=== PATIENT | male | born 1970 | race Caucasian/White ===

== ENCOUNTER 2019-12-28 15:19 | Outpatient (REF) | payer MEDICARE, MEDICAID, SELFPAY ==
[2019-12-28 16:18] LABS: MANUAL DIFF FLAG NO
[2019-12-28 16:19] LABS: Basophils Percent Auto 0.5 % (0-2); Eosinophils Absolute Auto 0.3 X10*3/uL (0.0-0.4); Eosinophils Percent Auto 3.1 % (0-4); Hematocrit 39.5 % (42-52); Imm Gran Abs Auto 0.01 X10*3/uL (0.00-0.03); Imm Gran Pct Auto 0.1 % (0.0-0.4); Lymphocytes Absolute Auto 3.2 X10*3/uL (1.2-4.9); Lymphocytes Percent Auto 38.9 % (20-40); Mean Corpuscular HGB Conc 32.9 g/dl (31.0-36.0); Mean Corpuscular Hemoglobin 30.4 pg (27.0-33.0); Mean Corpuscular Volume 92.3 fL (80-98); Mean Platelet Volume 9.6 fL (9.4-12.4); Monocytes Absolute Auto 0.8 X10*3/uL (0.1-1.2); Monocytes Percent Auto 9.2 % (2-11); Neutrophils Percent Auto 48.2 % (45-73); Platelet Count 207 X10*3/uL (160-400); Red Blood Count 4.28 X10*6/uL (4.60-5.80); Red Cell Distribution Width 12.1 % (11.0-16.0); White Blood Count 8.3 X10*3/uL (4.8-10.8)
[2019-12-28 16:47] LABS: Anion Gap 12 (12-20); Blood Urea Nitrogen 15 mg/dL (9-16); Calcium 9.1 mg/dL (8.4-10.2); Carbon Dioxide 30 mmol/L (22-29); Chloride 102 mmol/L (96-108); Cholesterol 138 mg/dL; Estimated Glomerular Filt Rate > 60; Glucose Fasting 92 mg/dL (60-99); HDL Cholesterol 38 mg/dL; LDL Cholesterol Calculated 80 mg/dl; Potassium 4.7 mmol/l (3.3-5.1); Sodium 139 mmol/L (135-145); Triglycerides 104 mg/dL
== END 2019-12-28 15:20 | disposition home or self-care (01) ==
LOC: HO.LAB 15:19
PROVIDERS: PCP Internal Medicine; Visit Provider Nurse Practitioner Family
DX: M54.5 Low back pain (principal); I10 Essential (primary) hypertension
CPT/HCPCS: 36415; 80048; 80061; 85025

== ENCOUNTER 2020-02-09 10:46 | Outpatient (REF) | payer MEDICARE, MEDICAID, SELFPAY | END 2020-02-09 10:47 | disposition home or self-care (01) | LOC: HO.HMGCLDS 10:46 | PROVIDERS: PCP Internal Medicine; Visit Provider Internal Medicine | DX: Z20.828 Contact with and (suspected) exposure to other viral communicable diseases (principal) | CPT/HCPCS: C9803; U0003 ==

== ENCOUNTER 2020-04-02 13:56 | Outpatient (REF) | payer MEDICARE, MEDICAID, SELFPAY | END 2020-04-02 13:57 | disposition home or self-care (01) | LOC: HO.HMGCLDS 13:56 | PROVIDERS: PCP Internal Medicine; Visit Provider Internal Medicine | DX: Z20.822 Contact with and (suspected) exposure to COVID-19 (principal) | CPT/HCPCS: 36415; C9803; U0003; U0005 ==

== ENCOUNTER 2020-06-17 13:07 | Emergency (ER) | payer MEDICARE, MEDICAID, SELFPAY ==
--- NOTE | ~2020-06-17 | CT_ITS ---
EXAMINATION: CT HEAD WITHOUT CONTRAST CLINICAL INFORMATION: Headache. COMPARISON: None. TECHNIQUE: Contiguous helical images of the brain were obtained without IV contrast. Multiplanar reconstructions were performed. DLP: 771 mGy-cm. FINDINGS: There are no pathologic extra-axial fluid collections. The lateral, third, fourth ventricles are nondilated and concordant with the appearance of the sulci. There is no evidence for acute intraparenchymal hemorrhage or infarct. There is neither mass nor mass effect. There is no shift of midline structures. The paranasal sinuses and mastoid air cells are clear. There are no osseous lesions. CT/CT head/brain wo con IMPRESSION: No evidence for acute intracranial injury. Automated exposure control (Care Dose) Adjustment of the mA and/or kv according to patient size (this includes techniques or standardized protocols for targeted exams where dose is matched to indication / reason for exam; i.e. extremities or head).
[2020-06-17 13:21] VITALS: BP 138/64; PULSE 77; RESP 16; TEMP 36.6; O2SAT 91; BMI 73.2
--- NOTE | 2020-06-17 16:03 | ED.HA ---
HPI - Headache General Chief Complaint: Headache Stated Complaint: headache Time Seen by Provider: 06/17/20 16:02 Source: patient Mode of arrival: ambulatory Limitations: no limitations History of Present Illness HPI Narrative: 50 yo male HTN, chronic pain, asthma, no AC therapy headache throbbing in nature gradual onset since 3/2 after his 2nd COVID vaccine, has seen Neurologist as well as eye doctor with normal exams and eye pressures, has not had imaging yet, patient concerned and family urged him to get it checked out MD elicited complaint: headache Pertinent past history: migraines and hypertension Onset (ago): month(s) (1) Onset description: gradually Location: diffuse Severity: severe Quality & Timing: throbbing Exacerbating factors: none Relieving factors: nothing Context: other (started after his 2nd covid vaccine) Associated symptoms: none Treatments prior to arrival: none Related Data Home Medications Medication Instructions Recorded Confirmed clonazepam 1 mg tablet 1 mg PO BEDTIME 12/01/19 03/11/20 umeclidinium 62.5 mcg-vilanterol INHALATION 03/11/20 03/11/20 25 mcg/actuation powdr for inhalation Previous Rx's Medication Instructions Recorded clonazepam 1 mg tablet 1 mg PO BID #60 tab 01/02/20 zolpidem 10 mg tablet 10 mg PO BEDTIME PRN #30 tab 01/02/20 albuterol sulfate 90 mcg/actuation 2 puff INHALATION QID #18 g 03/11/20 aerosol inhaler atorvastatin 20 mg tablet 20 mg PO DAILY #90 tab 03/11/20 citalopram 20 mg tablet 20 mg PO DAILY #90 tab 03/11/20 gabapentin 600 mg tablet 600 mg PO TID #180 tab 03/11/20 hydrochlorothiazide 12.5 mg tablet 12.5 mg PO DAILY #90 tab 03/11/20 lisinopril 10 mg tablet 10 mg PO DAILY #90 tab 03/11/20 trazodone 50 mg tablet 50 mg PO BEDTIME #90 tab 03/11/20 Allergies Allergy/AdvReac Type Severity Reaction Status Date / Time morphine Allergy Severe Anaphylaxis Verified 03/11/20 09:31 acetaminophen [From Tylenol] Allergy Unknown Gastrointestinal Verified 03/11/20 09:31 Upset Review of Systems Review of Systems: Constitutional : No Fever, No Chills, No Fatigue ENT/Mouth : No sore throat, No Rhinorrhea Eyes: No Eye Pain, No Swelling, No Redness Cardiovascular : No Chest Pain, No SOB, No Dyspnea on Exertion Respiratory : No Cough, No Sputum Gastrointestinal : No Nausea, No Vomiting, No Diarrhea, No abdominal Pain Genitourinary : No Dysuria, No Urinary Frequency, No Hematuria, Musculoskeletal : No joint pain, No Myalgias, No Joint Swelling Skin : No Skin Lesions, No rash Neuro : No Weakness, No Numbness, No Dizziness, positive Headache Psych : No Anxiety/Panic, No Depression Heme/Lymph: No Bruising, No Bleeding,No Lymphadenopathy Endocrine : No Polyuria, No Polydipsia All other systems reviewed and are negative [facility] Past Medical History Attestation statement: The following information was validated with the patient. Medical History Asthma Hypertension Lower back pain Peripheral neuropathy Surgical History History of back surgery Family History Family History Father No problems noted. Mother No problems noted. Social History Social History Alcohol intake: never Smoking Status: Current every day smoker Tobacco Type: Cigarette Cigarettes Per Day: 10 Use of substances other than those prescribed or required for medical reasons: No Advance Directives: No Advance Directives Information Provided: Yes Physical Exam Vital Signs: Vital Signs: Last Vital Signs Temp 98 F 06/17/20 13:21 Pulse 58 06/17/20 18:26 Resp 18 06/17/20 18:26 BP 117/63 06/17/20 18:26 Pulse Ox 95 06/17/20 18:26 Body Mass Index 73.2 Appearance: Alert. Oriented X3. No acute distress. Eyes: Pupils equal, round and reactive to light. ENT: Pharynx normal. TMs normal Neck: Normal inspection. Neck supple. CVS: Normal heart rate and rhythm. Pulses normal. Respiratory: No respiratory distress. Breath sounds normal. Abdomen: Soft and nontender. Skin: Skin warm and dry. Normal skin color. Normal skin turgor. Extremities: No lower extremity edema. No calf ttp Neuro: Oriented X 3. No motor deficit. No sensory deficit. Course Course Course Narrative: patient eloped prior to results MDM - Headache MDM Narrative Medical decision making narrative: 50 yo male with no AC therapy here with 1+ month of throbbing headache no neuro deficits, has seen multiple specialists but has not had imaging, at this time will obtain CT head to r/o mass, doubt stroke doubt SAH or BEHAVIORAL INTERVENTIONIST infection given duration as well as lack of infectious symptoms Differential Diagnosis Differential diagnosis: Likely tension headache and headache; Unlikely subarachnoid hemorrhage, meningitis and sinusitis Discharge Plan Discharge Clinical Impression: Headache Patient Disposition: Elopement Prescriptions: No Action zolpidem [Ambien] 10 mg tablet 10 mg PO BEDTIME PRN (Reason: sleep) Qty: 30 RF: 5 clonazepam [Klonopin] 1 mg tablet 1 mg PO BID Qty: 60 RF: 5 albuterol sulfate [ProAir HFA] 90 mcg/actuation HFA aerosol inhaler 2 puff inhalation QID Qty: 18 RF: 8 atorvastatin 20 mg tablet 20 mg PO DAILY Qty: 90 RF: 8 citalopram 20 mg tablet 20 mg PO DAILY Qty: 90 RF: 8 gabapentin 600 mg tablet 600 mg PO TID Qty: 180 RF: 8 hydrochlorothiazide 12.5 mg tablet 12.5 mg PO DAILY Qty: 90 RF: 8 lisinopril 10 mg tablet 10 mg PO DAILY Qty: 90 RF: 8 trazodone 50 mg tablet 50 mg PO BEDTIME Qty: 90 RF: 8 clonazepam [Klonopin] 1 mg tablet 1 mg PO BEDTIME RF: 0 Anoro Ellipta 62.5-25 mcg/actuation blister with device inhalation RF: 0
[2020-06-17 16:16] VITALS: BP 112/63; PULSE 65; RESP 16
--- NOTE | 2020-06-17 16:29 | PC.NURSE ---
Patient awake and alert. skin pwd. resp even and non labored. speaking in full, clear sentences. reports frontal headache traveling to backside of head starting after recieving 2nd covid vaccine on May 01. states headache is constant but does get worse at times. denies hx of headaches. vomited x 1 this morning for the first time since the headache started. neuros intact, PERRLA. awaiting initial physician carmina
[2020-06-17 18:26] VITALS: BP 117/63; PULSE 58; RESP 18; O2SAT 95
--- NOTE | 2020-06-17 18:55 | PC.NURSE ---
06/17/201839 Patient states he wants to leave at this time, states he cant wait for his CT results. Patient alert and oriented, speaking in full, clear sentences, ambulating with steady gait.
== END 2020-06-17 18:40 | disposition left against medical advice (07) ==
PROVIDERS: Emergency Provider Emergency Medicine; PCP Internal Medicine
DX: R51.9 Headache, unspecified (principal); I10 Essential (primary) hypertension; J45.909 Unspecified asthma, uncomplicated; F17.210 Nicotine dependence, cigarettes, uncomplicated
CPT/HCPCS: 70450; 99284

== ENCOUNTER → 2020-08-15 10:53 | Outpatient (BNVA) | payer MEDICARE, MEDICAID, SELFPAY | PROVIDERS: PCP Internal Medicine; Referring Provider Internal Medicine; Visit Provider Nurse Practitioner Family | DX: K21.9 Gastro-esophageal reflux disease without esophagitis (principal); K59.00 Constipation, unspecified; R14.0 Abdominal distension (gaseous) | CPT/HCPCS: 99202 ==

== ENCOUNTER 2020-10-01 07:52 | Outpatient (REF) | payer MEDICARE, MEDICAID, SELFPAY ==
[2020-10-01 11:19] LABS: MANUAL DIFF FLAG NO
[2020-10-01 11:29] LABS: Basophils Percent Auto 0.3 % (0-2); Eosinophils Absolute Auto 0.3 X10*3/uL (0.0-0.4); Eosinophils Percent Auto 2.1 % (0-4); Hematocrit 44.1 % (42-52); Hemoglobin 14.3 g/dl (14.0-18.0); Imm Gran Abs Auto 0.04 X10*3/uL (0.00-0.03); Imm Gran Pct Auto 0.3 % (0.0-0.4); Lymphocytes Absolute Auto 2.9 X10*3/uL (1.2-4.9); Mean Corpuscular HGB Conc 32.4 g/dl (31.0-36.0); Mean Corpuscular Hemoglobin 29.9 pg (27.0-33.0); Mean Corpuscular Volume 92.3 fL (80-98); Mean Platelet Volume 9.5 fL (9.4-12.4); Monocytes Absolute Auto 0.9 X10*3/uL (0.1-1.2); Monocytes Percent Auto 7.2 % (2-11); Neutrophils Percent Auto 66.1 % (45-73); Platelet Count 224 X10*3/uL (160-400); Red Blood Count 4.78 X10*6/uL (4.60-5.80); Red Cell Distribution Width 12.1 % (11.0-16.0); White Blood Count 12.2 X10*3/uL (4.8-10.8)
[2020-10-01 11:55] LABS: Alanine Aminotransferase 27 U/L (0-40); Albumin Level 4.5 g/dL (3.5-5.0); Alkaline Phosphatase 85 U/L (39-117); Anion Gap 12 (12-20); Aspartate Amino Transferase 29 U/L (5-37); Bilirubin Total 0.5 mg/dL (0.0-1.0); Blood Urea Nitrogen 11 mg/dL (9-16); Calcium 9.9 mg/dL (8.4-10.2); Carbon Dioxide 31 mmol/L (22-29); Chloride 101 mmol/L (96-108); Cholesterol 139 mg/dL; Estimated Glomerular Filt Rate > 60; Glucose Fasting 125 mg/dL (60-99); HDL Cholesterol 40 mg/dL; LDL Cholesterol Calculated 87 mg/dl; Potassium 4.1 mmol/L (3.3-5.1); Sodium 140 mmol/L (135-145); Total Protein 7.5 g/dL (6.5-8.0); Triglycerides 64 mg/dL
[2020-10-01 12:04] LABS: Thyroid Stimulating Hormone 1.57 uIU/mL (0.32-4.0)
[2020-10-07 08:57] LABS: Testosterone, Free 50.1 pg/mL (35.0-155.0); Testosterone, Total 421 ng/dL (250-1100)
== END 2020-10-01 07:53 | disposition home or self-care (01) ==
LOC: HO.HMGCLDS 07:52
PROVIDERS: PCP Internal Medicine; Visit Provider Internal Medicine
DX: Z00.00 Encounter for general adult medical examination without abnormal findings (principal); E11.9 Type 2 diabetes mellitus without complications; E03.9 Hypothyroidism, unspecified; G62.9 Polyneuropathy, unspecified
CPT/HCPCS: 36415; 80053; 80061; 84402; 84403; 84443; 85025

== ENCOUNTER → 2020-10-11 07:56 | Outpatient (BNVA) | payer MEDICARE, MEDICAID, SELFPAY | PROVIDERS: PCP Internal Medicine; Visit Provider Nurse Practitioner Family | DX: K59.00 Constipation, unspecified (principal); R14.0 Abdominal distension (gaseous); K59.03 Drug induced constipation; K21.9 Gastro-esophageal reflux disease without esophagitis; E78.5 Hyperlipidemia, unspecified; I10 Essential (primary) hypertension; E66.9 Obesity, unspecified; G62.9 Polyneuropathy, unspecified; F17.210 Nicotine dependence, cigarettes, uncomplicated; Z68.34 Body mass index [BMI] 34.0-34.9, adult; Z88.6 Allergy status to analgesic agent; Z88.5 Allergy status to narcotic agent | CPT/HCPCS: 99212 ==

== ENCOUNTER → 2020-11-18 08:22 | Outpatient (BNVA) | payer MEDICARE, MEDICAID, SELFPAY | PROVIDERS: PCP Internal Medicine; Visit Provider Nurse Practitioner Family | CPT/HCPCS: Q3014 ==

== ENCOUNTER → 2020-12-16 08:13 | Outpatient (BNVA) | payer MEDICARE, MEDICAID, SELFPAY | PROVIDERS: PCP Internal Medicine; Visit Provider Nurse Practitioner Family | DX: Z13.89 Encounter for screening for other disorder (principal) | CPT/HCPCS: Q3014 ==

== ENCOUNTER 2021-02-19 08:56 | Day surgery (SDC) | payer MEDICARE, MEDICAID, SELFPAY ==
[2021-02-12 15:09] VITALS: BMI 32.5
--- NOTE | 2021-02-17 14:09 | HO.ANESPROP2 ---
Documented by User: Cassidy Hunter NP 02/17/21 14:10 HPI - Anesthesia Eval Consult details Narrative: 50yo M for Upper Endoscopy and Colonoscopy suboxone daily PMFSH Active Problems Active Problems: All Active Problems (Updated 02/12/21 @ 15:11 by Lydia Thomas, RN) Hypertension (Acute) Asthma (Acute) Substance abuse in family (Acute) Depression (Acute) Hyperglycemia (Acute) Current smoker (Acute) Prostate cancer screening (Acute) Encounter for screening for malignant neoplasm of colon (Acute) Medicare annual wellness visit, subsequent (Acute) Obesity (Acute) Hyperlipidemia (Acute) Peripheral neuropathy (Acute) Hypertension (Acute) Lower back pain (Acute) Past Medical History Medical History Asthma Hx of opioid abuse Hyperlipidemia Hypertension Lower back pain Obesity Peripheral neuropathy Family History Family History Father No problems noted. Mother No problems noted. Surgical History Surgical History History of back surgery History of esophagogastroduodenoscopy (EGD) Social History Social History Housing: Apartment Alcohol intake: never Patient Tobacco Use Status: Current everyday Tobacco user Tobacco use type: Cigarette Cigarettes Per Day: 15 Are you DNR?: No Advance Directives: No Advance Directives Information Provided: Yes Advance Directives on File: No Recently lost weight without trying: No service: No Current occupational status: disabled Meds Allergies Allergy/AdvReac Type Severity Reaction Status Date / Time morphine Allergy Severe Anaphylaxis Verified 02/12/21 15:04 acetaminophen [From Tylenol] Allergy Unknown Gastrointestinal Verified 02/12/21 15:04 Upset Home Medications Medication Instructions Recorded Confirmed Last Taken Type ibuprofen 600 mg tablet 600 mg PO TID PRN 07/05/20 02/12/21 Unknown History buprenorphine 8 mg-naloxone 2 mg 2 tab SUBLINGUAL DAILY 08/15/20 02/12/21 Unknown History sublingual tablet naproxen 500 mg tablet 500 mg PO BID PRN 11/18/20 02/12/21 Unknown History albuterol sulfate 90 mcg/actuation 2 puff INHALATION QID PRN 02/12/21 02/12/21 Unknown History aerosol inhaler (ProAir HFA) clonazepam 1 mg tablet (Klonopin) 1 mg PO BID PRN 02/12/21 02/12/21 Unknown History Exam Exam Date and Time: February 17, 2021 1409 Height,Weight and Vital Signs: Height 6 ft Weight 108.862 kg Pertinent Lab Results Pertinent Lab Results: Laboratory Tests 10/01/20 10/01/20 07:57 07:57 WBC 12.2 H Hgb 14.3 Hct 44.1 Plt Count 224 Sodium 140 Potassium 4.1 Chloride 101 Carbon Dioxide 31 H BUN 11 Creatinine 0.81 Assessment and Plan Assessment Anesthesia Assessment: Chart Reviewed Documented by User: Sherry Alvarado MD 02/19/21 10:46 PMFSH Past Medical History Medical History Asthma Hx of opioid abuse Hyperlipidemia Hypertension Lower back pain Obesity Peripheral neuropathy Family History Family History Father No problems noted. Mother No problems noted. Surgical History Surgical History History of back surgery History of esophagogastroduodenoscopy (EGD) History of Problems with Anesthesia: No Social History Social History Housing: Apartment Alcohol intake: never Patient Tobacco Use Status: Current everyday Tobacco user Tobacco use type: Cigarette Cigarettes Per Day: 15 Are you DNR?: No Advance Directives: No Advance Directives Information Provided: Yes Advance Directives on File: No Recently lost weight without trying: No service: No Current occupational status: disabled Meds Allergies Allergy/AdvReac Type Severity Reaction Status Date / Time morphine Allergy Severe Anaphylaxis Verified 02/12/21 15:04 acetaminophen [From Tylenol] Allergy Unknown Gastrointestinal Verified 02/12/21 15:04 Upset Home Medications Medication Instructions Recorded Confirmed Last Taken Type ibuprofen 600 mg tablet 600 mg PO TID PRN 07/05/20 02/12/21 Unknown History buprenorphine 8 mg-naloxone 2 mg 2 tab SUBLINGUAL DAILY 08/15/20 02/12/21 Unknown History sublingual tablet naproxen 500 mg tablet 500 mg PO BID PRN 11/18/20 02/12/21 Unknown History albuterol sulfate 90 mcg/actuation 2 puff INHALATION QID PRN 02/12/21 02/12/21 Unknown History aerosol inhaler (ProAir HFA) clonazepam 1 mg tablet (Klonopin) 1 mg PO BID PRN 02/12/21 02/12/21 Unknown History Exam Airway Mallampati Class: III TM Dist: >3cm Neck ROM: Full Loose/Missing/Broken Teeth: No Heart: RRR Lungs: CTA Assessment and Plan Final Anesthetic Review History of Problems with Anesthesia: No NPO: Yes ASA Class: II Final Preanesthetic Review: Meds/Allgs Chart Reviewed, Consent Obtained/Reviewed and Anes Risks/Benef Reviewed Patient Risk: Low Procedure Risk: Intermediate Anesthetic Plan Anesthetic Plan: MAC: Disposition: Standard PACU
[2021-02-19 09:51] VITALS: BP 106/66; PULSE 67; RESP 16; TEMP 37; O2SAT 94
--- NOTE | 2021-02-19 10:09 | MHC.SHP ---
Pre-Procedural Eval Section A Date of Service: 02/19/21 Section B Chief Complaint: constipation Details of Present Illness: also has hx of GERD Relevant Family History (Specify if Yes): No Relevant Social History: Tobacco Use Present Medications: see Short Stay Collaborative assessment Medical History: Significant History (Asthma Hx of opioid abuse Hyperlipidemia Hypertension Lower back pain Obesity Peripheral neuropathy) History of Previous Operations: Relevant previous surgery/procedure and date(s) (History of back surgery History of esophagogastroduodenoscopy (EGD)) Allergies: Allergies Allergy/AdvReac Type Severity Reaction Status Date / Time morphine Allergy Severe Anaphylaxis Verified 02/12/21 15:04 acetaminophen [From Tylenol] Allergy Unknown Gastrointestinal Verified 02/12/21 15:04 Upset Review of Systems Sugical H&P ROS: Negative: Constitution, Cardiovascular, Respiratory, Neurological, Psychiatric, Hem-Onc, Allergic/Immunologic, Gastrointestinal, Genitourinary, Musculoskeletal, Integumentary, Endocrine and Eyes/Ears/Nose/Throat Exam Surgical H&P Exam: Normal: HEENT, Normal: Heart, Normal: Lungs, Normal: Extremities, Normal: Abdomen, Normal: Skin and Normal: Neurological Plan Diagnosis/Plan: Unchanged I have reviewed the history and physical and performed a pertinent physical examination on my patient. No changes have occurred unless specified. EGD fro evaluation of GERD and r/o barretts, colonsocopy due to worsening constipation
[2021-02-19] MEDS: Lactated Ringers 1,000 ML 100 ML IVCONT (10:10)
--- NOTE | 2021-02-19 10:11 | P.BOP_ITS ---
Brief Operative Note Date of Service: 02/19/21 Pre-op diagnosis: GERd, constipation Post-op diagnosis: same Procedure: see op note Surgeon: Norma Ryan MD Anesthesia: MAC Was an Coating Inspector used for this Procedure?: No Estimated blood loss (mL): 0 Condition: stable Disposition: PACU
--- NOTE | 2021-02-19 10:11 | W.PM.OPN ---
Operative Note Operative Note Date of Service: 02/19/21 Narrative: Operative Information Procedure Description: EGD, Colonoscopy FLEXIBLE TRANSORAL UPPER GASTROINTESTINAL ENDOSCOPY AND COLONOSCOPY PROCEDURE NOTE UPPER ENDOSCOPY Consent: Indications for the procedure and potential complications of bleeding, perforation, reaction to medications and missed diagnosis were discussed with the patient and informed consent was obtained. Instrument: Olympus GIF H 190 J mid size upper endoscope Monitoring: Vital signs and clinical assessment, continuous EKG monitoring, Pulse oximetry, Carbon Dioxide monitoring and blood pressure monitoring were done throughout the procedure. Procedure: The patient was placed in the left lateral decubitis position and pre-procedure medications were administered and a bite block was placed. The endoscope was inserted into the mouth and advanced under direct vision to the third part of duodenum. A careful inspection was made as the upper endoscope was withdrawn including a retroflexed examination of the proximal stomach; Findings and interventions are described below. Findings: Larynx:normal Esophagus: GE junction at 42 cm, diaphragm hiatus at 42 cm, mild esophagitis at GEJ bx taken from there and random esophagus Stomach: Patch erythema kriss antrum with small erosion noted. Biopsies were obtained. Grade 2 flap valve on retroflexed examination of the cardia. Some billious fluid noted in stomach. Duodenum: Normal bulb and descending duodenum, bx taken Intervention: Biopsies as noted above COLONOSCOPY Instrument: Olympus variable stiffness adult scope 190L Colonoscopy Monitoring: Vital signs and clinical assessment, continuous EKG monitoring, Pulse oximetry, Carbon Dioxide monitoring and blood pressure monitoring were done throughout the procedure. Colon withdrawal time was 21 minutes. Procedure: The patient was placed in the left lateral decubitis position and pre-procedure medications were administered. After a digital rectal examination of the ano-rectum, the video colonoscope was inserted into the rectum and advanced through the colon to the cecum/TI. The colonoscope was slowly withdrawn in a retrograde panoramic fashion and the colon mucosa was carefully examined including a retroflexed view of the rectum. Findings and interventions are described below. Procedure Difficulty: moderate Findings: Terminal Ileum-normal Cecum:normal Ascending Colon: normal Transverse Colon -normal Descending Colon:normal Sigmoid Colon: normal Rectum: Retroflexion with moderate sized internal hemorrhoids, grade I Anorectum - normal Colon preparation: [place] Bowel Preparation Scale Right colon; borderline 2 with extensive washing Transverse colon: 2 Left colon; 1 (0 = Unprepared colon segment with mucosa not seen due to solid stool that cannot be cleared. 1 = Portion of mucosa of the colon segment seen, but other areas of the colon segment not well seen due to staining, residual stool and/or opaque liquid. 2 = Minor amount of residual staining, small fragments of stool and/or opaque liquid, but mucosa of colon segment seen well. 3 = Entire mucosa of colon segment seen well with no residual staining, small fragments of stool or opaque liquid) Impression and Post Procedure Diagnosis: Endoscopy Findings: gastritis erosion esophagitis Colonoscopy Findings: internal hemorrhoids Plan: Await Pathology results Repeat Colonoscopy in 1-2 years due to fair prep or earlier if clinically indicated, next time can try 2 d of clears High fiber diet leaflet avoid straining at stool, epsom salts and sitz bath, anusol supps or cream if h pylori pos treat, check nsaid hx Above findings were reviewed with the patient and relevant handouts were provided if indicated.
[2021-02-19 11:13] VITALS: BP 103/42; PULSE 66; RESP 16; TEMP 36.1; O2SAT 95
[2021-02-19 11:30] VITALS: BP 102/57; PULSE 70; RESP 16; TEMP 36.1; O2SAT 95
== END 2021-02-19 12:27 | disposition home or self-care (01) ==
PROVIDERS: PCP Internal Medicine; Visit Provider Internal Medicine Gastroenterology
PROC: (CPT 43239; principal; 2021-02-19 10:10)
DX: Z12.11 Encounter for screening for malignant neoplasm of colon (principal); K64.0 First degree hemorrhoids; K59.04 Chronic idiopathic constipation; K21.9 Gastro-esophageal reflux disease without esophagitis; K29.50 Unspecified chronic gastritis without bleeding; K25.9 Gastric ulcer, unspecified as acute or chronic, without hemorrhage or perforation; K20.80 Other esophagitis without bleeding; K44.9 Diaphragmatic hernia without obstruction or gangrene; I10 Essential (primary) hypertension; G62.9 Polyneuropathy, unspecified; G47.33 Obstructive sleep apnea (adult) (pediatric); J45.909 Unspecified asthma, uncomplicated; Z79.899 Other long term (current) drug therapy; Z88.8 Allergy status to other drugs, medicaments and biological substances
CPT/HCPCS: 43239; G0121; 88305; 88342

== ENCOUNTER 2021-03-31 13:30 | Outpatient (REF) | payer MEDICARE, MEDICAID, SELFPAY ==
[2021-03-31 16:31] LABS: MANUAL DIFF FLAG NO
[2021-03-31 16:47] LABS: Basophils Percent Auto 0.3 % (0-2); Eosinophils Absolute Auto 0.2 X10*3/uL (0.0-0.4); Eosinophils Percent Auto 2.2 % (0-4); Hematocrit 39.8 % (42.0-52.0); Hemoglobin 13.3 g/dl (14.0-18.0); Imm Gran Abs Auto 0.03 X10*3/uL (0.00-0.03); Imm Gran Pct Auto 0.3 % (0.0-0.4); Lymphocytes Percent Auto 32.4 % (20-40); Mean Corpuscular HGB Conc 33.4 g/dl (31.0-36.0); Mean Corpuscular Hemoglobin 30.9 pg (27.0-33.0); Mean Corpuscular Volume 92.3 fL (80.0-98.0); Mean Platelet Volume 9.7 fL (9.4-12.4); Monocytes Absolute Auto 0.8 X10*3/uL (0.1-1.2); Monocytes Percent Auto 8.5 % (2-11); Neutrophils Absolute Auto 5.2 x10*3/uL (2.0-8.3); Neutrophils Percent Auto 56.3 % (45-73); Platelet Count 229 X10*3/uL (160-400); Red Blood Count 4.31 X10*6/uL (4.60-5.80); Red Cell Distribution Width 12.3 % (11.0-16.0); White Blood Count 9.2 X10*3/uL (4.8-10.8)
[2021-03-31 16:55] LABS: Alanine Aminotransferase 26 U/L (0-40); Albumin Level 4.2 g/dL (3.5-5.0); Alkaline Phosphatase 81 U/L (39-117); Aspartate Amino Transferase 25 U/L (5-37); Bilirubin Direct 0.2 mg/dL (0.0-0.5); Bilirubin Total 0.3 mg/dL (0.0-1.0); Blood Urea Nitrogen 16 mg/dL (9-16); Estimated Glomerular Filt Rate > 60; Total Protein 7.2 g/dL (6.5-8.0)
== END 2021-03-31 13:31 | disposition home or self-care (01) ==
LOC: HO.HMGCLDS 13:30
PROVIDERS: PCP Internal Medicine; Visit Provider Podiatrist
DX: B35.1 Tinea unguium (principal)
CPT/HCPCS: 36415; 80076; 82565; 84520; 85025

== ENCOUNTER 2021-04-04 | Outpatient (REF) | payer MEDICARE, MEDICAID, SELFPAY ==
[2021-04-06 09:28] LABS: H Pylori Breath Test Negative (Negative)
== END 2021-04-04 00:01 | disposition home or self-care (01) ==
LOC: HO.LNP
PROVIDERS: Visit Provider Internal Medicine Gastroenterology
DX: Z11.0 Encounter for screening for intestinal infectious diseases (principal)
CPT/HCPCS: 36415; 83013; 99211

== ENCOUNTER → 2021-04-04 10:14 | Outpatient (BNVA) | payer MEDICARE, MEDICAID, SELFPAY | PROVIDERS: PCP Internal Medicine; Referring Provider Internal Medicine; Visit Provider Internal Medicine Gastroenterology | DX: Z13.89 Encounter for screening for other disorder (principal) | CPT/HCPCS: 36415 ==

== ENCOUNTER → 2021-04-29 10:14 | Outpatient (BNVA) | payer MEDICARE, MEDICAID, SELFPAY | PROVIDERS: PCP Internal Medicine; Referring Provider Internal Medicine; Visit Provider Nurse Practitioner Family | DX: K58.1 Irritable bowel syndrome with constipation (principal); K59.04 Chronic idiopathic constipation; K21.00 Gastro-esophageal reflux disease with esophagitis, without bleeding; Z79.899 Other long term (current) drug therapy | CPT/HCPCS: 99212 ==

== ENCOUNTER → 2021-05-27 10:56 | Outpatient (BNVA) | payer MEDICARE, MEDICAID, SELFPAY | PROVIDERS: PCP Internal Medicine | DX: E29.1 Testicular hypofunction (principal) | CPT/HCPCS: 99202 ==

== ENCOUNTER 2021-06-23 07:02 | Outpatient (REF) | payer MEDICARE, MEDICAID, SELFPAY ==
[2021-06-23 11:38] LABS: MANUAL DIFF FLAG NO
[2021-06-23 11:59] LABS: Estimated Average Glucose 108 mg/dL; Hemoglobin A1c % 5.4 %
[2021-06-23 12:07] LABS: Alanine Aminotransferase 27 U/L (0-40); Albumin Level 4.3 g/dL (3.5-5.0); Alkaline Phosphatase 74 U/L (39-117); Aspartate Amino Transferase 28 U/L (5-37); Bilirubin Direct 0.2 mg/dL (0.0-0.5); Bilirubin Total 0.4 mg/dL (0.0-1.0); Blood Urea Nitrogen 11 mg/dL (9-16); Estimated Glomerular Filt Rate > 60; Total Protein 7.1 g/dL (6.5-8.0)
[2021-06-23 12:12] LABS: Basophils Percent Auto 0.6 % (0-2); Eosinophils Absolute Auto 0.2 X10*3/uL (0.0-0.4); Eosinophils Percent Auto 2.5 % (0-4); Hematocrit 41.8 % (42.0-52.0); Imm Gran Abs Auto 0.02 X10*3/uL (0.00-0.03); Imm Gran Pct Auto 0.3 % (0.0-0.4); Lymphocytes Absolute Auto 2.3 X10*3/uL (1.2-4.9); Lymphocytes Percent Auto 31.7 % (20-40); Mean Corpuscular HGB Conc 33.5 g/dl (31.0-36.0); Mean Corpuscular Hemoglobin 30.6 pg (27.0-33.0); Mean Corpuscular Volume 91.5 fL (80.0-98.0); Mean Platelet Volume 9.5 fL (9.4-12.4); Monocytes Absolute Auto 0.7 X10*3/uL (0.1-1.2); Monocytes Percent Auto 9.5 % (2-11); Neutrophils Percent Auto 55.4 % (45-73); Platelet Count 239 X10*3/uL (160-400); Red Blood Count 4.57 X10*6/uL (4.60-5.80); Red Cell Distribution Width 12.4 % (11.0-16.0); White Blood Count 7.1 X10*3/uL (4.8-10.8)
[2021-06-23 12:21] LABS: Alanine Aminotransferase 24 U/L (0-40); Albumin Level 4.4 g/dL (3.5-5.0); Alkaline Phosphatase 73 U/L (39-117); Anion Gap 11 (12-20); Aspartate Amino Transferase 28 U/L (5-37); Bilirubin Total 0.6 mg/dL (0.0-1.0); Blood Urea Nitrogen 12 mg/dL (9-16); Calcium 9.9 mg/dL (8.4-10.2); Carbon Dioxide 32 mmol/L (22-29); Chloride 103 mmol/L (96-108); Cholesterol 132 mg/dL; Estimated Glomerular Filt Rate > 60; Glucose Fasting 108 mg/dL (60-99); HDL Cholesterol 40 mg/dL; LDL Cholesterol Calculated 80 mg/dl; Potassium 4.5 mmol/L (3.3-5.1); Sodium 141 mmol/L (135-145); Total Protein 7.1 g/dL (6.5-8.0); Triglycerides 63 mg/dL
[2021-06-23 12:24] LABS: Prostate Specific Antigen Scr 0.22 ng/mL (<0.05-4.0); Thyroid Stimulating Hormone 0.81 uIU/mL (0.32-4.0)
[2021-06-25 01:31] LABS: Sex Hormone Binding Globulin 102 nmol/L (10-50)
[2021-06-25 12:07] LABS: Follicle Stimulating Hormone 7.7 mIU/mL (1.6-8.0); Lutenizing Hormone 2.5 mIU/mL (1.5-9.3)
[2021-06-28 18:02] LABS: Testosterone, Free 28.4 pg/mL (35.0-155.0); Testosterone, Total 417 ng/dL (250-1100)
== END 2021-06-23 07:03 | disposition home or self-care (01) ==
LOC: HO.HMGCLDS 07:02
PROVIDERS: Absent Provider Urology; PCP Internal Medicine; Referring Provider Nurse Practitioner Family; Visit Provider Podiatrist
DX: Z00.00 Encounter for general adult medical examination without abnormal findings (principal); E29.1 Testicular hypofunction; R73.9 Hyperglycemia, unspecified; B35.1 Tinea unguium; Z12.5 Encounter for screening for malignant neoplasm of prostate; Z13.0 Encounter for screening for diseases of the blood and blood-forming organs and certain disorders involving the immune mechanism
CPT/HCPCS: 36415; 80053; 80061; 80076; 82248; 82565; 83001; 83002; 83036; 84153; 84270; 84402; 84403; 84443; 84520; 85025

== ENCOUNTER → 2021-06-27 09:19 | Outpatient (BNVA) | payer MEDICARE, MEDICAID, SELFPAY | PROVIDERS: PCP Internal Medicine; Visit Provider Urology | DX: E29.1 Testicular hypofunction (principal); R39.11 Hesitancy of micturition | CPT/HCPCS: Q3014 ==

== ENCOUNTER → 2021-10-31 09:01 | Outpatient (BNVA) | payer MEDICARE, MEDICAID, SELFPAY | PROVIDERS: PCP Internal Medicine; Visit Provider Nurse Practitioner Family | DX: K59.04 Chronic idiopathic constipation (principal); K21.00 Gastro-esophageal reflux disease with esophagitis, without bleeding | CPT/HCPCS: 99212 ==

== ENCOUNTER → 2022-02-18 11:53 | Outpatient (BNVA) | payer MEDICARE, MEDICAID, SELFPAY | PROVIDERS: PCP Internal Medicine; Visit Provider Nurse Practitioner Family | DX: K21.00 Gastro-esophageal reflux disease with esophagitis, without bleeding (principal); K59.04 Chronic idiopathic constipation; Z79.899 Other long term (current) drug therapy | CPT/HCPCS: 99212 ==

== ENCOUNTER 2022-03-04 15:01 | Outpatient (REF) | payer MEDICARE, MEDICAID, SELFPAY ==
[2022-03-04 17:25] LABS: Alanine Aminotransferase 30 U/L (0-40); Alkaline Phosphatase 70 U/L (39-117); Anion Gap 9 (12-20); Aspartate Amino Transferase 29 U/L (5-37); Bilirubin Total 0.5 mg/dL (0.0-1.0); Blood Urea Nitrogen 18 mg/dL (9-16); Calcium 9.2 mg/dL (8.4-10.2); Carbon Dioxide 31 mmol/L (22-29); Chloride 100 mmol/L (96-108); Cholesterol 161 mg/dL; Estimated Glomerular Filt Rate > 60; Glucose Random 89 mg/dL (60-115); HDL Cholesterol 49 mg/dL; LDL Cholesterol Calculated 98 mg/dl; Lipase 14 U/L (8-78); Potassium 4.2 mmol/L (3.3-5.1); Sodium 136 mmol/L (135-145); Total Protein 6.6 g/dL (6.5-8.0); Triglycerides 72 mg/dL
[2022-03-04 17:42] LABS: TSH reflex Free T4 0.91 uIU/mL (0.32-4.0)
== END 2022-03-04 15:02 | disposition home or self-care (01) ==
LOC: HO.LAB 15:01
PROVIDERS: PCP Internal Medicine; Visit Provider Nurse Practitioner Family
DX: R10.9 Unspecified abdominal pain (principal); K21.00 Gastro-esophageal reflux disease with esophagitis, without bleeding; K59.00 Constipation, unspecified; E78.5 Hyperlipidemia, unspecified
CPT/HCPCS: 36415; 80053; 80061; 83690; 84443; 99212

== ENCOUNTER 2022-03-12 | Outpatient (REF) | payer MEDICARE, MEDICAID, SELFPAY | END 2022-03-12 00:01 | LOC: HO.LAB | PROVIDERS: PCP Internal Medicine; Visit Provider Nurse Practitioner Family | DX: R10.9 Unspecified abdominal pain (principal); K21.9 Gastro-esophageal reflux disease without esophagitis | CPT/HCPCS: 87338 ==

== ENCOUNTER → 2022-03-18 11:51 | Outpatient (BNVA) | payer MEDICARE, MEDICAID, SELFPAY | PROVIDERS: PCP Internal Medicine; Visit Provider Nurse Practitioner Family | DX: K21.00 Gastro-esophageal reflux disease with esophagitis, without bleeding (principal); K59.04 Chronic idiopathic constipation; F17.210 Nicotine dependence, cigarettes, uncomplicated | CPT/HCPCS: 99212 ==

== ENCOUNTER 2022-03-25 13:22 | Outpatient (REF) | payer MEDICARE, MEDICAID, SELFPAY ==
--- NOTE | ~2022-03-25 | CT_ITS ---
EXAMINATION: CT ABDOMEN AND PELVIS WITH CONTRAST CLINICAL INFORMATION: Abdominal pain COMPARISON: None TECHNIQUE: Multidetector volumetric images were obtained from the superior aspect of the liver through the pubic symphysis following administration 85 mL of Omnipaque 350 intravenous contrast. Sagittal and coronal reformatted images were obtained on the technologist's workstation. Oral contrast: No This CT examination was performed using dose optimization techniques as appropriate, variously including the following: *Automated exposure control *Adjustment of mA and/or kV according to patient size (this includes techniques or standardized protocols for targeted exams where dose is matched to indication/reason for exam; i.e. extremities or head) *Use of iterative reconstruction technique DLP: 353 mGy-cm FINDINGS: LUNG BASES: The visualized lung bases are unremarkable. LIVER, GALLBLADDER, AND BILIARY TREE: The liver is normal in size, shape, and attenuation. No focal hepatic lesion or biliary ductal dilatation is present. The gallbladder is unremarkable with no evidence of radiopaque gallstones, gallbladder wall thickening, or obvious pericholecystic inflammatory changes. PANCREAS: Unremarkable. SPLEEN: Unremarkable. ADRENAL GLANDS: Unremarkable. KIDNEYS AND URETERS: The kidneys are normal in size, shape, and attenuation. No hydronephrosis, hydroureter, or calculi seen. Mild symmetric perinephric stranding. BLADDER: Unremarkable. GASTROINTESTINAL TRACT: The stomach is unremarkable. Normal caliber small bowel. No obstruction. Normal appendix. No colonic wall thickening or inflammation. Moderate colonic stool burden. No free air or free fluid. ABDOMINAL WALL: No significant hernia is appreciated. LYMPH NODES: Normal. VASCULAR: Normal caliber aorta with mild atherosclerotic calcification. PELVIC VISCERA: The prostate and seminal vesicles are unremarkable. OSSEOUS STRUCTURES: No acute or suspicious osseous abnormality. Posterior fusion hardware at L4-S1. Intact hardware. Grade 1 anterolisthesis of L3 on L4 with vacuum disc phenomenon and disc space narrowing. CT/CT abdomen pelvis w IV con IMPRESSION: No acute findings in the abdomen or pelvis. No inflammatory changes. Moderate colonic stool burden. Fleischner guidelines were followed.
[2022-03-25] MEDS: iohexoL 350 MG/ML 100 ML INFUS..BTL IV (15:42)
[2022-03-25] MEDS: Barium Sulfate Oral (Vanilla) 450 ML ORAL.SUSP 900 ML PO (15:42)
== END 2022-03-25 13:23 | disposition home or self-care (01) ==
LOC: HO.CT 13:22
PROVIDERS: PCP Internal Medicine; Visit Provider Nurse Practitioner Family
DX: R10.9 Unspecified abdominal pain (principal)
CPT/HCPCS: 74177; Q9967

== ENCOUNTER → 2022-03-31 11:41 | Outpatient (BNVA) | payer MEDICARE, MEDICAID, SELFPAY | PROVIDERS: PCP Internal Medicine; Referring Provider Internal Medicine; Visit Provider Nurse Practitioner Family | DX: K59.04 Chronic idiopathic constipation (principal); K21.00 Gastro-esophageal reflux disease with esophagitis, without bleeding; Z79.899 Other long term (current) drug therapy | CPT/HCPCS: 99212 ==

== ENCOUNTER 2022-04-22 10:34 | Outpatient (REF) | payer OTHER, MEDICARE, MEDICAID, SELFPAY ==
--- NOTE | ~2022-04-22 | XR_ITS ---
EXAMINATION: XR LUMBOSACRAL SPINE CLINICAL INFORMATION: Dorsalgia COMPARISON: 03/25/2022 TECHNIQUE: Three views of the lumbosacral spine. FINDINGS: Posterior fusion hardware from L4 through S1. There is grade 1 anterolisthesis of L3 on L4, similar to prior. Disc space narrowing at this level. Mild facet arthropathy. Sacroiliac joints are symmetric. The sacrum is intact. Normal bowel gas pattern. XR/XR lumbar spine 2-3V IMPRESSION: Intact fusion hardware from L4 through S1. Similar alignment of the lumbar spine with mild degenerative change. Grade 1 anterolisthesis of L3 on L4.
--- NOTE | ~2022-04-22 | XR_ITS ---
EXAMINATION: XR CERVICAL SPINE CLINICAL INFORMATION: Cervicalgia COMPARISON: None TECHNIQUE: 3 views of the cervical spine were obtained. FINDINGS: There are no prevertebral soft tissue or bony abnormalities demonstrated. No compression fractures or subluxations are identified. Alignment is maintained at the atlanto-axial articulation. The disc spaces are preserved. Multilevel endplate osteophytes, greatest at C5-C6 and C6-C7. The prevertebral soft tissues are normal. The lung apices are clear. XR/XR cervical spine 2V IMPRESSION: Mild degenerative changes of the lower cervical spine.
== END 2022-04-22 10:35 | disposition home or self-care (01) ==
LOC: HO.HMGCX 10:34
PROVIDERS: PCP Internal Medicine; Visit Provider Internal Medicine
DX: M54.2 Cervicalgia (principal); M54.9 Dorsalgia, unspecified
CPT/HCPCS: 72040; 72100

== ENCOUNTER → 2022-05-29 08:35 | Outpatient (BNVA) | payer MEDICARE, MEDICAID, SELFPAY | PROVIDERS: PCP Internal Medicine; Visit Provider Urology | DX: E29.1 Testicular hypofunction (principal); R39.11 Hesitancy of micturition | CPT/HCPCS: 51798 ==

== ENCOUNTER 2022-05-29 09:07 | Outpatient (REF) | payer MEDICARE, MEDICAID, SELFPAY ==
[2022-06-04 14:33] LABS: Testosterone, Free 45.7 pg/mL (35.0-155.0); Testosterone, Total 714 ng/dL (250-1100)
== END 2022-05-29 09:08 | disposition home or self-care (01) ==
LOC: HO.10HDL 09:07
PROVIDERS: Visit Provider Urology
DX: E11.69 Type 2 diabetes mellitus with other specified complication (principal); E29.1 Testicular hypofunction; N52.1 Erectile dysfunction due to diseases classified elsewhere; M54.2 Cervicalgia
CPT/HCPCS: 36415; 84402; 84403

== ENCOUNTER 2022-06-02 09:06 | Day surgery (SDC) | payer MEDICARE, MEDICAID, SELFPAY ==
[2022-06-02 09:43] VITALS: BMI 25.2
[2022-06-02 09:50] VITALS: BP 134/63; PULSE 59; RESP 16; TEMP 36.4; O2SAT 96
[2022-06-02] MEDS: Lactated Ringers 1,000 ML 50 ML IVCONT (10:06)
--- NOTE | 2022-06-02 10:49 | P.HPSUR_ITS ---
Pre-Procedural Eval Section A Date of Service: 06/02/22 Section B Chief Complaint: esophagitis and screening Relevant Family History (Specify if Yes): No Relevant Social History: Tobacco Use Present Medications: see Short Stay Collaborative assessment Medical History: Significant History (Asthma Chronic idiopathic constipation GERD (gastroesophageal reflux disease) Hx of opioid abuse Hyperlipidemia Hyp ertension Lower back pain Obesity Peripheral neuropathy) History of Previous Operations: Relevant previous surgery/procedure and date(s) (History of back surgery History of esophagogastroduodenoscopy (EGD) Hx of colonoscopy) Allergies: Allergies Allergy/AdvReac Type Severity Reaction Status Date / Time morphine Allergy Severe Anaphylaxis Verified 05/29/22 14:07 acetaminophen [From Tylenol] Allergy Unknown Gastrointestinal Verified 05/29/22 14:07 Upset Review of Systems Sugical H&P ROS: Negative: Constitution, Cardiovascular, Respiratory, Neurological, Psychiatric, Hem-Onc, Allergic/Immunologic, Gastrointestinal, Genitourinary, Musculoskeletal, Integumentary, Endocrine and Eyes/Ears/Nose/Throat Exam Surgical H&P Exam: Normal: HEENT, Normal: Heart, Normal: Lungs, Normal: Extremities, Normal: Abdomen, Normal: Skin and Normal: Neurological Plan Diagnosis/Plan: Unchanged I have reviewed the history and physical and performed a pertinent physical examination on my patient. No changes have occurred unless specified. Time Spent With Patient Time: Total time managing care of this patient today ____ minutes.
--- NOTE | 2022-06-02 10:50 | P.OP_ITS ---
Operative Note Operative Note Date of Service: 06/02/22 Narrative: Operative Information Procedure Description: EGD, Colonoscopy Indication: esophagitis and screening Anesthesia: MAC FLEXIBLE TRANSORAL UPPER GASTROINTESTINAL ENDOSCOPY AND COLONOSCOPY PROCEDURE NOTE UPPER ENDOSCOPY Consent: Indications for the procedure and potential complications of bleeding, perforation, reaction to medications and missed diagnosis were discussed with the patient and informed consent was obtained. Instrument: Olympus GIF H 190 J mid size upper endoscope Monitoring: Vital signs and clinical assessment, continuous EKG monitoring, Pulse oximetry, Carbon Dioxide monitoring and blood pressure monitoring were done throughout the procedure. Procedure: The patient was placed in the left lateral decubitis position and pre-procedure medications were administered and a bite block was placed. The endoscope was inserted into the mouth and advanced under direct vision to the third part of duodenum. A careful inspection was made as the upper endoscope was withdrawn including a retroflexed examination of the proximal stomach; Findings and interventions are described below. Findings: Larynx:normal Esophagus: GE junction at 42? cm, diaphragm hiatus at 42 cm, mild esophagitis at GEJ bx taken Stomach: Patch erythema with streaks noted in the body of stomach. Biopsies were obtained. Grade 2 flap valve on retroflexed examination of the cardia. Some billious fluid noted in stomach. LES was noted to be very lax. Duodenum: Mild bulbar erythema, normal descending duodenum, bx taken Intervention: Biopsies as noted above COLONOSCOPY Instrument: Olympus variable stiffness ADULT scope 190L Colonoscopy Monitoring: Vital signs and clinical assessment, continuous EKG monitoring, Pulse oximetry, Carbon Dioxide monitoring and blood pressure monitoring were done throughout the procedure. Colon withdrawal time was 13 minutes. Procedure: The patient was placed in the left lateral decubitis position and pre-procedure medications were administered. After a digital rectal examination of the ano-rectum, the video colonoscope was inserted into the rectum and advanced through the colon to the cecum/TI. The colonoscope was slowly withdrawn in a retrograde panoramic fashion and the colon mucosa was carefully examined including a retroflexed view of the rectum. Findings and interventions are described below. Procedure Difficulty:difficult due to redundant colon, v tortuous Findings: Terminal Ileum-not intubated Cecum:normal Ascending Colon: sessile polyp 6-8 mm removed with cold forceps Transverse Colon -normal Descending Colon:normal Sigmoid Colon: normal Rectum: Retroflexion with small internal hemorrhoids, grade I, 4-6 mm sessile polyp removed with cold forceps Anorectum - normal Colon preparation: [place] Bowel Preparation Scale Right colon; 2 Transverse colon: 2 Left colon; 1-2 (0 = Unprepared colon segment with mucosa not seen due to solid stool that cannot be cleared. 1 = Portion of mucosa of the colon segment seen, but other areas of the colon segment not well seen due to staining, residual stool and/or opaque liquid. 2 = Minor amount of residual staining, small fragments of stool and/or opaque liquid, but mucosa of colon segment seen well. 3 = Entire mucosa of colon segment seen well with no residual staining, small fragments of stool or opaque liquid) Impression and Post Procedure Diagnosis: Endoscopy Findings: mild esophagitis gastritis mild duodenitis lax LES Colonoscopy Findings: polyp internal hemorrhoids redundant colon Plan: Await Pathology results Repeat Colonoscopy in 3 years due to fair left sided prep or earlier if clinically indicated High fiber diet leaflet avoid straining at stool, epsom salts and sitz bath, anusol supps or cream check compliance with PPI and timing, nsaid hx avoid senna for constipation, cont with motegrity Above findings were reviewed with the patient and relevant handouts were provided if indicated.
--- NOTE | 2022-06-02 11:35 | HO.ANESPROP2 ---
HPI - Anesthesia Eval Consult details Narrative: screening [facility] Active Problems Active Problems: All Active Problems (Updated 05/29/22 @ 14:19 by Nino Daniel MD) Cervical radiculopathy (Acute) Low back pain (Acute) Neck pain (Acute) Lower thoracic back pain (Acute) Urinary hesitancy (Acute) Hypogonadism in male (Acute) GERD (gastroesophageal reflux disease) (Acute) Chronic idiopathic constipation (Acute) Urinary frequency (Acute) Hypertension (Acute) Asthma (Acute) Substance abuse in family (Acute) Depression (Acute) Hyperglycemia (Acute) Current smoker (Acute) Prostate cancer screening (Acute) Encounter for screening for malignant neoplasm of colon (Acute) Medicare annual wellness visit, subsequent (Acute) Obesity (Acute) Hyperlipidemia (Acute) Peripheral neuropathy (Acute) Hypertension (Acute) Lower back pain (Acute) Past Medical History Medical History Asthma Chronic idiopathic constipation GERD (gastroesophageal reflux disease) Hx of opioid abuse Hyperlipidemia Hypertension Lower back pain Obesity Peripheral neuropathy Family History Family History Father No problems noted. Mother No problems noted. Family history of problems with anesthesia: No Surgical History Surgical History History of back surgery History of esophagogastroduodenoscopy (EGD) Hx of colonoscopy History of Problems with Anesthesia: No Social History Social History Housing: Apartment Alcohol intake: never Patient Tobacco Use Status: Current everyday Tobacco user Tobacco use type: Cigarette Cigarette Packs Per Day: 1 Cigarettes Per Day: 20.0 e-Cigarette/Vaping Use: Never Used Second Hand Smoke Exposure: Yes Use of substances other than those prescribed or required for medical reasons: No Are you DNR?: No Advance Directives: No Advance Directives Information Provided: Yes Recently lost weight without trying: Yes How much weight loss: 34pounds or more Nutrition Risks: No Nutritional Risk service: No Current occupational status: disabled Cognitive needs: No Hearing needs: No Vision needs: No Meds Allergies Allergy/AdvReac Type Severity Reaction Status Date / Time morphine Allergy Severe Anaphylaxis Verified 05/29/22 14:07 acetaminophen [From Tylenol] Allergy Unknown Gastrointestinal Verified 05/29/22 14:07 Upset Active Medications: Current Medications Lactated Ringer's (Lr) 1,000 mls @ 50 mls/hr IVCONT .Q20H LUCRECIA Last Admin: 06/02/22 10:06 Dose: 50 mls/hr Home Medications Medication Instructions Recorded Confirmed Last Taken Type buprenorphine 8 mg-naloxone 2 mg 2 tab sublingual DAILY 08/15/20 06/02/22 06/02/22 History sublingual tablet amitriptyline 100 mg tablet 100 mg PO BEDTIME 10/31/21 05/29/22 Unknown History fluticasone fur. 200 mcg-umeclid 1 ea inhalation DAILY 10/31/21 06/02/22 06/02/22 History 62.5 mcg-vilant 25 mcg inhalat.powder (Trelegy Ellipta) albuterol sulfate 90 mcg/actuation 90 mcg inhalation DAILY 05/29/22 06/02/22 06/02/22 History aerosol inhaler (Ventolin HFA) Exam Exam Date and Time: June 02, 2022 1135 Height,Weight and Vital Signs: Height 6 ft Weight 84.368 kg Last Vital Signs Temp 97.5 F 06/02/22 09:50 Pulse 59 06/02/22 09:50 Resp 16 06/02/22 09:50 BP 134/63 06/02/22 09:50 Pulse Ox 96 06/02/22 09:50 O2 Del Method Room Air 06/02/22 09:50 Airway Mallampati Class: II TM Dist: >3cm Neck ROM: Full Heart: rr Lungs: ta Assessment and Plan Assessment Anesthesia Assessment: Anesthesia Plan Discussed and Chart Reviewed Final Anesthetic Review Family History of Problems with Anesthesia: No History of Problems with Anesthesia: No NPO: Yes ASA Class: II Final Preanesthetic Review: No Changes in Pt Med Stat, Meds/Allgs Chart Reviewed, Consent Obtained/Reviewed and Anes Risks/Benef Reviewed Patient Risk: Low Procedure Risk: Low Anesthetic Plan Anesthetic Plan: MAC: Disposition: Standard PACU
[2022-06-02 12:02] VITALS: BP 119/66; PULSE 59; RESP 16; TEMP 36.6; O2SAT 96
[2022-06-02 12:17] VITALS: BP 124/61; PULSE 51; RESP 15; TEMP 36.6; O2SAT 96
== END 2022-06-02 13:22 | disposition home or self-care (01) ==
PROVIDERS: PCP Internal Medicine; Visit Provider Internal Medicine Gastroenterology
PROC: (CPT 45380; principal; 2022-06-02 10:50)
DX: Z12.11 Encounter for screening for malignant neoplasm of colon (principal); D12.2 Benign neoplasm of ascending colon; K62.1 Rectal polyp; K64.0 First degree hemorrhoids; Q43.8 Other specified congenital malformations of intestine; K59.04 Chronic idiopathic constipation; K20.80 Other esophagitis without bleeding; K29.70 Gastritis, unspecified, without bleeding; K22.0 Achalasia of cardia; K21.9 Gastro-esophageal reflux disease without esophagitis; K44.9 Diaphragmatic hernia without obstruction or gangrene; I10 Essential (primary) hypertension; E78.5 Hyperlipidemia, unspecified; J45.909 Unspecified asthma, uncomplicated; G62.9 Polyneuropathy, unspecified; G47.33 Obstructive sleep apnea (adult) (pediatric); Z79.51 Long term (current) use of inhaled steroids; Z79.1 Long term (current) use of non-steroidal anti-inflammatories (NSAID); Z79.899 Other long term (current) drug therapy; Z88.8 Allergy status to other drugs, medicaments and biological substances
CPT/HCPCS: 45380; 43239; 88305; 88342

== ENCOUNTER → 2022-06-16 10:46 | Outpatient (BNVA) | payer OTHER, MEDICARE, MEDICAID, SELFPAY | PROVIDERS: PCP Internal Medicine; Visit Provider Nurse Practitioner Family | DX: Z13.89 Encounter for screening for other disorder (principal) ==

== ENCOUNTER 2022-06-18 14:00 | Outpatient (RCR) | payer OTHER, MEDICARE, MEDICAID, SELFPAY ==
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
== END 2022-08-10 09:15 | disposition home or self-care (01) ==
LOC: HO.PTCHIC 14:00
PROVIDERS: PCP Internal Medicine; Visit Provider Internal Medicine
DX: M54.2 Cervicalgia (principal); M54.50 Low back pain, unspecified
CPT/HCPCS: 97110; 97140; 97163

== ENCOUNTER 2022-06-18 14:53 | Outpatient (REF) | payer MEDICARE, MEDICAID, SELFPAY ==
[2022-06-23 19:53] LABS: Testosterone, Free 47.5 pg/mL (35.0-155.0); Testosterone, Total 594 ng/dL (250-1100)
== END 2022-06-18 14:54 | disposition home or self-care (01) ==
LOC: HO.HMGCLDS 14:53
PROVIDERS: Visit Provider Urology
DX: E29.1 Testicular hypofunction (principal); M54.2 Cervicalgia
CPT/HCPCS: 36415; 84402; 84403

== ENCOUNTER 2022-06-18 19:17 | Outpatient (REF) | payer OTHER, MEDICARE, MEDICAID, SELFPAY ==
--- NOTE | ~2022-06-18 | MR_ITS ---
EXAMINATION: MR CERVICAL SPINE WITHOUT CONTRAST CLINICAL INFORMATION: Cervicalgia. COMPARISON: None available. TECHNIQUE: MRI of the cervical spine was performed using routine sequences without contrast. FINDINGS: The cervical vertebral bodies demonstrate normal heights and alignment. There is moderate disc height loss at C6-C7 and C7-T1 and mild to moderate disc height loss at C5-C6. Endplate edema seen at C5-C6, C6-C7, and C7-T1. There is no cord edema. The imaged portions of the intracranial contents and extraspinal soft tissues appear normal. SPINAL LEVELS: C2-C3: No posterior disc abnormality. Mild to moderate left facet arthropathy. No spinal canal or neural foraminal stenosis. C3-C4: Disc osteophyte complex with left more than right uncovertebral hypertrophy resulting in moderate spinal canal stenosis and severe left and mild right neural foraminal stenosis. C4-C5: Small central protrusion. No spinal canal or neural foraminal stenosis. C5-C6: Disc osteophyte complex with left more than right uncovertebral hypertrophy resulting in moderate spinal canal stenosis and severe left and moderate right neural foraminal stenosis. C6-C7: Disc osteophyte complex with vertebral hypertrophy resulting in moderate spinal canal stenosis and severe bilateral neural foraminal stenosis. C7-T1: Disc osteophyte complex with uncovertebral hypertrophy resulting in mild spinal canal stenosis and severe bilateral neural foraminal stenosis. MR/MR cervical spine wo con IMPRESSION: Multilevel degenerative spondylotic changes. Endplate edema seen at C5-C6, C6-C7, and C7-T1. Spinal canal stenosis appears moderate at C3-C4, C5-C6, and C6-C7. Neural foraminal stenosis is severe on the left at C3-C4, severe on the left and moderate on the right at C5-C6, severe bilaterally at C6-C7, and severe bilaterally at C7-T1.
== END 2022-06-18 19:18 | disposition home or self-care (01) ==
LOC: HO.MRI 19:17
PROVIDERS: PCP Internal Medicine; Visit Provider Internal Medicine
DX: M54.2 Cervicalgia (principal)
CPT/HCPCS: 72141

== ENCOUNTER → 2022-06-26 11:24 | Outpatient (BNVA) | payer MEDICARE, MEDICAID, SELFPAY | PROVIDERS: PCP Internal Medicine; Visit Provider Urology | DX: N40.1 Benign prostatic hyperplasia with lower urinary tract symptoms (principal); N13.8 Other obstructive and reflux uropathy; E29.1 Testicular hypofunction; N52.1 Erectile dysfunction due to diseases classified elsewhere | CPT/HCPCS: Q3014 ==

== ENCOUNTER 2022-07-24 08:40 | Inpatient (IN) | payer MEDICARE, MEDICAID, SELFPAY ==
[2022-07-24] VITALS (9 sets, daily range): BP systolic 113–147; BP diastolic 57–89; PULSE 64–230; RESP 14–18; TEMP 36.4–37.7; O2SAT 94–100; BMI 25.2
--- NOTE | 2022-07-24 | ECG_ITS ---
Test Reason : REPEAT/NEW ONSET AFIB Blood Pressure : / mmHG Vent. Rate : 123 BPM Atrial Rate : 123 BPM P-R Int : 162 ms QRS Dur : 104 ms QT Int : 318 ms P-R-T Axes : 083 009 050 degrees QTc Int : 455 ms Likely atrial flutter Incomplete right bundle branch block Borderline ECG When compared with ECG of 24-JUL-2022 11:28, No significant changes seen Referred By: Cecelia Anaya Electronically Signed By:JOEY KAMINSKI
--- NOTE | ~2022-07-24 | XR_ITS ---
EXAMINATION: XR CHEST CLINICAL INFORMATION: Abdominal and chest pain. COMPARISON: Chest x-ray 09/20/2013. Only report available. TECHNIQUE: Frontal view of the chest was obtained. FINDINGS: The lungs are well-expanded and clear of acute pneumonic process. There are prominent reticular interstitial changes in both lung bases, stable. Heart size and pulmonary vascularity is normal. No gross bony abnormality. XR/XR chest 1V IMPRESSION: 1. No acute cardiopulmonary process seen. 2. Prominent reticular interstitial changes in both lung bases. Consider CT chest exam for follow up.
--- NOTE | ~2022-07-24 | CT_ITS ---
EXAMINATION: CT ABDOMEN AND PELVIS WITH CONTRAST CLINICAL INFORMATION: Right-sided abdominal pain COMPARISON: Previous CT of the abdomen and pelvis March 2022 TECHNIQUE: Multidetector volumetric images were obtained from the superior aspect of the liver through the pubic symphysis following administration 85 mL of Omnipaque 350 intravenous contrast. Sagittal and coronal reformatted images were obtained on the technologist's workstation. Oral contrast: Yes This CT examination was performed using dose optimization techniques as appropriate, variously including the following: *Automated exposure control *Adjustment of mA and/or kV according to patient size (this includes techniques or standardized protocols for targeted exams where dose is matched to indication/reason for exam; i.e. extremities or head) *Use of iterative reconstruction technique DLP: 467 mGy-cm FINDINGS: LUNG BASES: Bronchial wall thickening and clustered peribronchial nodular opacities and airspace disease in the right middle and right lower lobes. Findings are suggestive of bronchopneumonia. March 2022 LIVER, GALLBLADDER, AND BILIARY TREE: Fatty liver. The gallbladder is enlarged.. No gallstone seen by CT. No biliary duct dilatation. PANCREAS: Unremarkable. SPLEEN: Unremarkable. ADRENAL GLANDS: Unremarkable. KIDNEYS AND URETERS: Small right renal cysts. No imaging follow-up recommended. Bilateral perinephric stranding. This is similar to previous exam. BLADDER: Unremarkable. GASTROINTESTINAL TRACT: Moderate stool burden. Distended fluid-filled loops of small bowel in the left upper quadrant. No transition zone seen in this probably represents an ileus. The small and large bowel are otherwise unremarkable. The appendix is unremarkable. Underdistention of the stomach. ABDOMINAL WALL: Abdominal wall bulge. No hernia. LYMPH NODES: Normal. VASCULAR: Unremarkable. PELVIC VISCERA: Unremarkable. OSSEOUS STRUCTURES: Postsurgical changes to the lower lumbar spine with posterior rods and transpedicular screws from L4 to S1. 5 mm anterior subluxation of L3 with respect to L4. Degenerative changes of the hip joints. CT/CT abdomen pelvis w IV con IMPRESSION: Right middle and right lower lobe bronchopneumonia. Fatty liver. Enlarged gallbladder. No gallstone seen by CT. Gallbladder could be better evaluated with HIDA scan or ultrasound. Probable small bowel ileus. Moderate stool burden. Fleischner guidelines were followed.
[2022-07-24] MEDS: 0.9 % Sodium Chloride 1,000 ML 999 ML IV (08:55)
--- NOTE | 2022-07-24 08:55 | ED.GENADULT ---
HPI - General Adult General Chief complaint: Arrhythmia/Palpitations Stated complaint: Chest pain, SOB, on O2 per EMS Time Seen by Provider: 07/24/22 08:42 Source: patient and EMS Mode of arrival: EMS Limitations: no limitations History of Present Illness HPI narrative: 52-year-old male with multiple medical problems presents ED with multiple complaints. Patient awoke this morning with diffuse body cramps. He then developed an abdominal pressure, shortness of breath and palpitations. The symptoms are described as severe. There is no clear relieving or exacerbating features. Is not associated with nausea, vomiting or diarrhea. He does describe chronic constipation which take medications. He is passing flatus. He denies any fevers chills or sweats. Denies any coughing or mucus production. He has never had symptoms like this before. He reports having overdone it with a 3100 pushups challenge in taking care of children and niece and nephew. EMS arrived at the house, found patient to be in SVT with heart rate well into the 140s. He was given 6 mg of adenosine with no improvement and followed up with 12 mg. He did subsequently convert back to a normal sinus rhythm. Related Data Home Medications Medication Instructions Recorded Confirmed buprenorphine 8 mg-naloxone 2 mg 1 tab sublingual TID 08/15/20 07/24/22 sublingual tablet albuterol sulfate 90 mcg/actuation 90 mcg inhalation Q4-6H PRN 05/29/22 07/24/22 aerosol inhaler (Ventolin HFA) Shortness Of Breath Or Wheezing citalopram 20 mg tablet 20 mg PO DAILY 06/26/22 07/24/22 sucralfate 1 gram tablet 1 g PO DAILY 06/26/22 07/24/22 fluticasone fur. 200 mcg-umeclid 1 ea inhalation DAILY 07/24/22 07/24/22 62.5 mcg-vilant 25 mcg inhalat.powder (Trelegy Ellipta) ibuprofen 600 mg tablet 600 mg PO TID 07/24/22 07/24/22 multivitamin 1 tab PO DAILY 07/24/22 07/24/22 pantoprazole 40 mg tablet,delayed 40 mg PO DAILY@0630 07/24/22 07/24/22 release tadalafil 5 mg tablet 5 mg PO DAILY PRN Sexual Activity 05/26/23 05/26/23 Previous Rx's Medication Instructions Recorded hydrochlorothiazide 12.5 mg tablet 12.5 mg PO DAILY #90 tabs 07/08/22 lisinopril 10 mg tablet 10 mg PO DAILY #90 tabs 07/08/22 prucalopride 2 mg tablet 2 mg PO DAILY #90 tabs 07/08/22 (Motegrity) clonazepam 1 mg tablet (Klonopin) 1 mg PO BID PRN Anxiety #60 tabs 07/21/22 zolpidem 10 mg tablet (Ambien) 10 mg PO BEDTIME PRN sleep #30 tabs 07/21/22 Allergies Allergy/AdvReac Type Severity Reaction Status Date / Time morphine Allergy Severe Anaphylaxis Verified 06/26/22 11:25 acetaminophen [From Tylenol] Allergy Unknown Gastrointestinal Verified 06/26/22 11:25 Upset PMFSH Past Medical History Medical History Asthma 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 Mother No problems noted. Social History Social History Housing: Apartment Alcohol intake: never Patient Tobacco Use Status: Current everyday Tobacco user Tobacco use type: Cigarette Cigarette Packs Per Day: 1 Cigarettes Per Day: 20.0 e-Cigarette/Vaping Use: Never Used Second Hand Smoke Exposure: Yes Advance Directives: No Advance Directives Information Provided: No service: No Current occupational status: disabled Cognitive needs: No Hearing needs: No Vision needs: No Physical Exam ED Vital Signs: Vital Signs - 24 hr 07/24/22 08:50 07/24/22 10:47 07/24/22 11:52 Temperature 99.9 F Pulse Rate 145 H 109 H 125 H Respiratory Rate 15 16 16 Blood Pressure 113/57 L 132/78 133/83 Pulse Oximetry 100 97 94 Oxygen Delivery Method Room Air Room Air Room Air BMI result Body Mass Index 25.2 GEN: Well developed, + acute distress, alert, oriented HEENT: Normocephalic, atraumatic, normal external ears, nose appears normal, no oropharyngeal edema or exudates Eyes: Normal to appearance Neck: Supple, no lymphadenopathy Respiratory: Talks in complete sentences, no respiratory distress, clear to auscultation bilaterally Cardiovascular: Regular rate and rhythm, no murmurs rubs or gallops Abdomen: Soft, nontender, right-sided abdominal tenderness with guarding but no rebound, no organomegaly Back: No CVA tenderness Extremities: No clubbing cyanosis or edema Neurologic: No focal neurologic deficits, cranial nerves 2-12 intact, strength is 5/5 bilaterally Skin: No rash Course Course Course Narrative: 52-year-old male presents with multiple complaints as well as SVT diagnosed by EMS. Upon my exam, he has right-sided abdominal tenderness, he is currently on oxygen supplementation but does have a history of COPD. His lungs are clear to auscultation bilaterally. He is currently tachycardic but regular rhythm. Patient require an EKG to CVAs back in SVT. Will obtain a CT scan the abdomen pelvis to rule out intra-abdominal pathology. Patient will be given analgesia, IV fluids, Pepcid for symptomatic improvement. Reevaluation(s) Reevaluation #1: EKG is consistent with atrial fibrillation with rapid ventricular response. Will start patient on Cardizem. Consider anticoagulation followed any imaging studies Reevaluation #2: Will treat for sepsis, tachycardia, lactic acid > 4, elevated WBC. Will obtain blood cultures, give IV ABX and start 30 cc/kg bolus Reevaluation #3: still tachy - will give metoprolol 5 mg IVP Time: 10:00 Additional Reevaluation(s): Repeat EKG demonstrates atrial fibrillation with a heart rate of 110. He is otherwise hemodynamically stable. I have treated the patient for pneumonia. The patient should have a repeat lactic acid level. Patient has been admitted to the hospital. Dr. Rai aware Medications Administered Generic Name Dose Route Start Last Admin Trade Name Freq PRN Reason Stop Dose Admin Azithromycin 500 mg/ Sodium 250 mls @ 125 mls/hr 07/24/22 10:44 07/24/22 11:51 Chloride IV 07/24/22 12:43 125 mls/hr ONCE ONE Administration Discontinued Medications Generic Name Dose Route Start Last Admin Trade Name Freq PRN Reason Stop Dose Admin Diltiazem HCl 20 mg 07/24/22 09:02 07/24/22 09:09 Diltiazem Hcl 50 Mg/10 Ml Vial IVPUSH 07/24/22 09:03 20 mg STAT STA Administration Enoxaparin Sodium 80 mg 07/24/22 11:34 07/24/22 11:51 Enoxaparin Sodium 80 Mg/0.8 Ml Syringe SUBCUT 07/24/22 11:35 80 mg ONCE ONE Administration Famotidine 20 mg 07/24/22 08:50 07/24/22 09:10 Famotidine/Pf 20 Mg/2 Ml Vial IVPUSH 07/24/22 08:51 20 mg ONCE ONE Administration Sodium Chloride 1,000 mls @ 999 mls/hr 07/24/22 09:00 07/24/22 09:38 Ns IV 07/24/22 10:00 Infused .Q1H1M LUCRECIA Infusion Ceftriaxone Sodium 1 gm/ 50 mls @ 100 mls/hr 07/24/22 09:33 07/24/22 10:39 Sodium Chloride IV 07/24/22 10:02 Infused ONCE ONE Infusion Sodium Chloride 2,531.04 mls @ 2,531.04 mls/hr 07/24/22 09:33 07/24/22 11:38 Ns 30 ml/kg infuse over 1 hr (2531.04 ml) 07/24/22 10:32 Infused IV Infusion .Q1H STA Iohexol 85 ml 07/24/22 09:55 07/24/22 09:56 Iohexol 350 Mg/Ml 100 Ml Infus..Btl IV 07/24/22 09:56 85 ml ONCE ONE Administration Ketorolac Tromethamine 15 mg 07/24/22 08:50 07/24/22 09:10 Ketorolac Tromethamine 15 Mg/Ml Vial IVPUSH 07/24/22 08:51 15 mg ONCE ONE Administration Metoprolol Tartrate 5 mg 07/24/22 09:59 07/24/22 10:07 Metoprolol Tartrate 5 Mg/5 Ml Vial IVPUSH 07/24/22 10:00 5 mg ONCE ONE Administration Metoprolol Tartrate 50 mg 07/24/22 11:34 07/24/22 11:51 Metoprolol Tartrate 50 Mg Tablet PO 07/24/22 11:35 50 mg ONCE ONE Administration Protocol Medical Decision Making Medical Decision Making [facility] Narrative: Patient presents with multiple complaints. Patient was complaining of chest pain to EMS with palpitations and shortness of breath. He was noted to have SVT which improved with adenosine 12 mg IV. Is currently tachycardic. Will obtain an EKG to rule out SVT, atrial fibrillation, atrial flutter. Patient may require repeat doses of adenosine, metoprolol or Cardizem. Patient will be maintained on a compliance monitor. Patient is also complaining of diffuse muscle cramping. Will check laboratory analysis to rule out electrolyte abnormality. Patient is complaining of abdominal pain. Right-sided. Differential diagnosis could include colitis, appendicitis, diverticulitis, cholecystitis, IBD, IBS. Will obtain a CT scan of the abdomen and pelvis. Differential Diagnosis Differential Diagnoses: The differential diagnosis associated with the presentation includes (See above) Abdominal pain, tachycardia, afib pneumonia Admission/Observation Consideration of admission/observation: Escalation of care including admission/observation considered Lab Data [facility] Lab Attestation statement: I reviewed the patient's lab results. 07/24/22 09:02 07/24/22 09:02 Labs: Lab Results 07/24/22 07/24/22 07/24/22 Range/Units 09:02 09:02 09:02 WBC 16.4 H (4.8-10.8) X10*3/uL RBC 4.96 (4.60-5.80) X10*6/uL Hgb 16.0 (14.0-18.0) g/dl Hct 45.8 (42.0-52.0) % MCV 92.3 (80.0-98.0) fL MCH 32.3 (27.0-33.0) pg MCHC 34.9 (31.0-36.0) g/dl RDW 14.5 (11.0-16.0) % Plt Count 179 D (160-400) X10*3/uL MPV 8.8 L (9.4-12.4) fL Immature Gran % (Auto) 0.2 (0.0-0.4) % Neut % (Auto) 85.8 H (45-73) % Lymph % (Auto) 6.4 L (20-40) % [place] % (Auto) 7.2 (2-11) % Eos % (Auto) 0.1 (0-4) % Baso % (Auto) 0.3 (0-2) % Lymph # (Auto) 1.1 L (1.2-4.9) X10*3/uL [place] # (Auto) 1.2 (0.1-1.2) X10*3/uL Eos # (Auto) 0.0 (0.0-0.4) X10*3/uL Baso # (Auto) 0.1 (0.0-0.2) X10*3/uL Abs Immat Gran (auto) 0.04 H (0.00-0.03) X10*3/uL Absolute Neuts (auto) 14.1 H (2.0-8.3) x10*3/uL Absolute Nucleated RBC 0.000 (0.0-0.012) X10*3/uL Nucleated RBC % (auto) 0.0 (0.0-0.2) /100WBC PT 11.4 (10.0-13.1) SEC INR 1.0 (0.9-1.1) APTT 29.6 (26.0-36.4) SEC Sodium 140 (135-145) mmol/L Potassium 3.9 (3.3-5.1) mmol/L Chloride 105 (96-108) mmol/L Carbon Dioxide 19 L (22-29) mmol/L Anion Gap 20 (12-20) BUN 9 (9-16) mg/dL Creatinine 0.80 (0.5-1.4) mg/dL Estim Creat Clear Calc 117.2 Estimated GFR > 60 Random Glucose 94 (60-115) mg/dL Lactic Acid (0.5-2.0) mmol/L Lactic Acid F/U @ 2Hr (0.5-2.0) mmol/L Calcium 9.2 (8.4-10.2) mg/dL Phosphorus 2.7 (2.7-4.5) mg/dL Magnesium 1.6 (1.6-2.6) mg/dL Total Bilirubin 1.5 H (0.0-1.0) mg/dL AST 79 H (5-37) U/L ALT 35 (0-40) U/L Alkaline Phosphatase 77 (39-117) U/L Troponin I High Sens (<3.5-35.0) ng/L Total Protein 7.4 (6.5-8.0) g/dL Albumin 4.0 (3.5-5.0) g/dL Lipase 13 (8-78) U/L TSH 0.61 (0.32-4.0) uIU/mL Urine Color Urine Appearance Urine pH (5.0-9.0) Ur Specific [place] (1.005-1.025) Urine Protein (Neg-Trace) mg/dL Urine Glucose (UA) (Negative) mg/dL Urine Ketones (Negative) mg/dL Urine Blood (Negative) Urine Nitrite (Negative) Ur Leukocyte Esterase (Negative) Urine RBC (0-2) /HPF Urine WBC (0-5) /HPF Ur Squamous Epith Cells (0-2) /HPF Urine Bacteria (None Seen) Hyaline Casts (0-2) /LPF Urine Opiates Screen (Not Detect) Urine Fentanyl Screen (Not Detect) Ur Barbiturates Screen (Not Detect) Ur Phencyclidine Scrn (Not Detect) Ur Amphetamines Screen (Not Detect) U Benzodiazepines Scrn (Not Detect) Urine Cocaine Screen (Not Detect) U Marijuana (THC) Screen (Not Detect) 07/24/22 07/24/22 07/24/22 Range/Units 09:02 09:02 10:41 WBC (4.8-10.8) X10*3/uL RBC (4.60-5.80) X10*6/uL Hgb (14.0-18.0) g/dl Hct (42.0-52.0) % MCV (80.0-98.0) fL MCH (27.0-33.0) pg MCHC (31.0-36.0) g/dl RDW (11.0-16.0) % Plt Count (160-400) X10*3/uL MPV (9.4-12.4) fL Immature Gran % (Auto) (0.0-0.4) % Neut % (Auto) (45-73) % Lymph % (Auto) (20-40) % [place] % (Auto) (2-11) % Eos % (Auto) (0-4) % Baso % (Auto) (0-2) % Lymph # (Auto) (1.2-4.9) X10*3/uL [place] # (Auto) (0.1-1.2) X10*3/uL Eos # (Auto) (0.0-0.4) X10*3/uL Baso # (Auto) (0.0-0.2) X10*3/uL Abs Immat Gran (auto) (0.00-0.03) X10*3/uL Absolute Neuts (auto) (2.0-8.3) x10*3/uL Absolute Nucleated RBC (0.0-0.012) X10*3/uL Nucleated RBC % (auto) (0.0-0.2) /100WBC PT (10.0-13.1) SEC INR (0.9-1.1) APTT (26.0-36.4) SEC Sodium (135-145) mmol/L Potassium (3.3-5.1) mmol/L Chloride (96-108) mmol/L Carbon Dioxide (22-29) mmol/L Anion Gap (12-20) BUN (9-16) mg/dL Creatinine (0.5-1.4) mg/dL Estim Creat Clear Calc Estimated GFR Random Glucose (60-115) mg/dL Lactic Acid 4.5 H* (0.5-2.0) mmol/L Lactic Acid F/U @ 2Hr (0.5-2.0) mmol/L Calcium (8.4-10.2) mg/dL Phosphorus (2.7-4.5) mg/dL Magnesium (1.6-2.6) mg/dL Total Bilirubin (0.0-1.0) mg/dL AST (5-37) U/L ALT (0-40) U/L Alkaline Phosphatase (39-117) U/L Troponin I High Sens 35.7 H (<3.5-35.0) ng/L Total Protein (6.5-8.0) g/dL Albumin (3.5-5.0) g/dL Lipase (8-78) U/L TSH (0.32-4.0) uIU/mL Urine Color Yellow Urine Appearance Cloudy Urine pH 8.0 (5.0-9.0) Ur Specific [place] >= 1.030 H (1.005-1.025) Urine Protein 30 (1+) H (Neg-Trace) mg/dL Urine Glucose (UA) Negative (Negative) mg/dL Urine Ketones Trace (Negative) mg/dL Urine Blood Small (1+) H (Negative) Urine Nitrite Negative (Negative) Ur Leukocyte Esterase Negative (Negative) Urine RBC 0-2 (0-2) /HPF Urine WBC 0-5 (0-5) /HPF Ur Squamous Epith Cells 0-2 (0-2) /HPF Urine Bacteria None Seen (None Seen) Hyaline Casts 0-2 (0-2) /LPF Urine Opiates Screen (Not Detect) Urine Fentanyl Screen (Not Detect) Ur Barbiturates Screen (Not Detect) Ur Phencyclidine Scrn (Not Detect) Ur Amphetamines Screen (Not Detect) U Benzodiazepines Scrn (Not Detect) Urine Cocaine Screen (Not Detect) U Marijuana (THC) Screen (Not Detect) 07/24/22 07/24/22 Range/Units 10:41 11:25 WBC (4.8-10.8) X10*3/uL RBC (4.60-5.80) X10*6/uL Hgb (14.0-18.0) g/dl Hct (42.0-52.0) % MCV (80.0-98.0) fL MCH (27.0-33.0) pg MCHC (31.0-36.0) g/dl RDW (11.0-16.0) % Plt Count (160-400) X10*3/uL MPV (9.4-12.4) fL Immature Gran % (Auto) (0.0-0.4) % Neut % (Auto) (45-73) % Lymph % (Auto) (20-40) % [place] % (Auto) (2-11) % Eos % (Auto) (0-4) % Baso % (Auto) (0-2) % Lymph # (Auto) (1.2-4.9) X10*3/uL [place] # (Auto) (0.1-1.2) X10*3/uL Eos # (Auto) (0.0-0.4) X10*3/uL Baso # (Auto) (0.0-0.2) X10*3/uL Abs Immat Gran (auto) (0.00-0.03) X10*3/uL Absolute Neuts (auto) (2.0-8.3) x10*3/uL Absolute Nucleated RBC (0.0-0.012) X10*3/uL Nucleated RBC % (auto) (0.0-0.2) /100WBC PT (10.0-13.1) SEC INR (0.9-1.1) APTT (26.0-36.4) SEC Sodium (135-145) mmol/L Potassium (3.3-5.1) mmol/L Chloride (96-108) mmol/L Carbon Dioxide (22-29) mmol/L Anion Gap (12-20) BUN (9-16) mg/dL Creatinine (0.5-1.4) mg/dL Estim Creat Clear Calc Estimated GFR Random Glucose (60-115) mg/dL Lactic Acid (0.5-2.0) mmol/L Lactic Acid F/U @ 2Hr 2.2 H* (0.5-2.0) mmol/L Calcium (8.4-10.2) mg/dL Phosphorus (2.7-4.5) mg/dL Magnesium (1.6-2.6) mg/dL Total Bilirubin (0.0-1.0) mg/dL AST (5-37) U/L ALT (0-40) U/L Alkaline Phosphatase (39-117) U/L Troponin I High Sens (<3.5-35.0) ng/L Total Protein (6.5-8.0) g/dL Albumin (3.5-5.0) g/dL Lipase (8-78) U/L TSH (0.32-4.0) uIU/mL Urine Color Urine Appearance Urine pH (5.0-9.0) Ur Specific [place] (1.005-1.025) Urine Protein (Neg-Trace) mg/dL Urine Glucose (UA) (Negative) mg/dL Urine Ketones (Negative) mg/dL Urine Blood (Negative) Urine Nitrite (Negative) Ur Leukocyte Esterase (Negative) Urine RBC (0-2) /HPF Urine WBC (0-5) /HPF Ur Squamous Epith Cells (0-2) /HPF Urine Bacteria (None Seen) Hyaline Casts (0-2) /LPF Urine Opiates Screen Not Detected (Not Detect) Urine Fentanyl Screen Not Detected (Not Detect) Ur Barbiturates Screen Not Detected (Not Detect) Ur Phencyclidine Scrn Not Detected (Not Detect) Ur Amphetamines Screen Not Detected (Not Detect) U Benzodiazepines Scrn Not Detected (Not Detect) Urine Cocaine Screen POSITIVE H (Not Detect) U Marijuana (THC) Screen Not Detected (Not Detect) Independent Interpretation I performed an independent interpretation of an: EKG (Atrial fibrillation heart rate 130, left axis deviation, no acute ST elevations or depressions) and CT Scan (Abdomen: Distended gallbladder and bladder) Radiology Impression Discussion of test interpretation with radiology: I have reviewed the radiologist's reading. ( CT/CT abdomen pelvis w IV con IMPRESSION: Right middle and right lower lobe bronchopneumonia. Fatty liver. Enlarged gallbladder. No gallstone seen by CT. Gallbladder could be better evaluated with HIDA scan or ultrasound. Probable small bowel ileus. Moderate stool burden. Fleisc) Independent Historian Clinical information obtained from an independent historian. History obtained from or confirmed by: EMS Prescription Management I considered prescription management with: Pain Medication Chronic Conditions Patient?s care impacted by: Other (COPD) Discharge Plan Discharge Clinical Impression: Abdominal pain, Atrial fibrillation with RVR, COPD (chronic obstructive pulmonary disease), Cramp in muscle, CAP (community acquired pneumonia) Patient Disposition: Admitted As Inpatient
[2022-07-24 09:06] LABS: MANUAL DIFF FLAG NO
[2022-07-24] MEDS: dilTIAZem HCL 50 MG/10 ML VIAL 20 MG IVPUSH (09:09)
[2022-07-24 09:10] LABS: Basophils Absolute Auto 0.1 X10*3/uL (0.0-0.2); Basophils Percent Auto 0.3 % (0-2); Eosinophils Percent Auto 0.1 % (0-4); Hematocrit 45.8 % (42.0-52.0); Imm Gran Abs Auto 0.04 X10*3/uL (0.00-0.03); Imm Gran Pct Auto 0.2 % (0.0-0.4); Lymphocytes Absolute Auto 1.1 X10*3/uL (1.2-4.9); Lymphocytes Percent Auto 6.4 % (20-40); Mean Corpuscular HGB Conc 34.9 g/dl (31.0-36.0); Mean Corpuscular Hemoglobin 32.3 pg (27.0-33.0); Mean Corpuscular Volume 92.3 fL (80.0-98.0); Mean Platelet Volume 8.8 fL (9.4-12.4); Monocytes Absolute Auto 1.2 X10*3/uL (0.1-1.2); Monocytes Percent Auto 7.2 % (2-11); Neutrophils Absolute Auto 14.1 x10*3/uL (2.0-8.3); Neutrophils Percent Auto 85.8 % (45-73); Platelet Count 179 X10*3/uL (160-400); Red Blood Count 4.96 X10*6/uL (4.60-5.80); Red Cell Distribution Width 14.5 % (11.0-16.0); White Blood Count 16.4 X10*3/uL (4.8-10.8)
[2022-07-24] MEDS: Famotidine/PF 20 MG/2 ML VIAL IVPUSH (09:10)
[2022-07-24] MEDS: Ketorolac Tromethamine 15 MG/ML VIAL IVPUSH (09:10)
[2022-07-24 09:23] LABS: Prothrombin Time 11.4 SEC (10.0-13.1)
[2022-07-24 09:25] LABS: Partial Thromboplastin Time 29.6 SEC (26.0-36.4)
[2022-07-24 09:28] LABS: Troponin-I High Sensitivity 35.7 ng/L (<3.5-35.0)
[2022-07-24 09:32] LABS: Lactic Acid 4.5 mmol/L (0.5-2.0)
[2022-07-24 09:33] LABS: Alanine Aminotransferase 35 U/L (0-40); Alkaline Phosphatase 77 U/L (39-117); Anion Gap 20 (12-20); Aspartate Amino Transferase 79 U/L (5-37); Bilirubin Total 1.5 mg/dL (0.0-1.0); Blood Urea Nitrogen 9 mg/dL (9-16); Calcium 9.2 mg/dL (8.4-10.2); Carbon Dioxide 19 mmol/L (22-29); Chloride 105 mmol/L (96-108); Creatinine Clr Calc Pharmacy 117.2; Estimated Glomerular Filt Rate > 60; Glucose Random 94 mg/dL (60-115); Lipase 13 U/L (8-78); Magnesium 1.6 mg/dL (1.6-2.6); Phosphorus 2.7 mg/dL (2.7-4.5); Potassium 3.9 mmol/L (3.3-5.1); Sodium 140 mmol/L (135-145); Total Protein 7.4 g/dL (6.5-8.0)
[2022-07-24 09:53] LABS: TSH reflex Free T4 0.61 uIU/mL (0.32-4.0)
[2022-07-24] MEDS: iohexoL 350 MG/ML 100 ML INFUS..BTL 85 ML IV (09:56)
[2022-07-24] MEDS: cefTRIAXone sodium 1 GM in 0.9 % Sodium Chloride 50 ML IV (10:06)
[2022-07-24] MEDS: Metoprolol Tartrate 5 MG/5 ML VIAL IVPUSH (10:07)
--- NOTE | 2022-07-24 10:19 | PHA.MEDREC ---
Pharmacy Consult ? Medication Reconciliation Pharmacy has completed the medication reconciliation. Spoke to patient and patient's significant other to confirm meds. Patient states they no longer take atorvastatin because their PCP said the patient didn't need it anymore.
[2022-07-24 10:55] LABS: Appearance Urine Cloudy; Color Urine Yellow; Glucose Urine UA Negative (Negative); Leukocyte Esterase Urine Negative (Negative); Nitrite Urine Negative (Negative); Specific Gravity - Urine >= 1.030 (1.005-1.025); UMIC TRIGGER UACC YES; Urine Blood Small (1+) (Negative); Urine Ketones Trace mg/dL (Negative); Urine Protein 30 (1+) mg/dL (Neg-Trace)
[2022-07-24 11:05] LABS: Reflex Lactate? Lactic Acid Added
[2022-07-24 11:06] LABS: Amphetamine Screen Urine Not Detected (Not Detect); Barbiturates, Urine Not Detected (Not Detect); Benzodiazepines Screen Urine Not Detected (Not Detect); Cannabinoid Screen Urine Not Detected (Not Detect); Cocaine Screen Urine POSITIVE (Not Detect); Fentanyl, urine Not Detected (Not Detect); Opiate Screen Urine Not Detected (Not Detect); Phencyclidine Screen Urine Not Detected (Not Detect)
[2022-07-24 11:07] LABS: Bacteria Urine None Seen (None Seen); Hyaline Casts Urine 0-2 /LPF (0-2); RBC Urine 0-2 /HPF (0-2); Squamous Epithelial Cell Urine 0-2 /HPF (0-2); WBC Urine 0-5 /HPF (0-5)
--- NOTE | 2022-07-24 11:15 | ECG_ITS ---
Test Reason : repeat Blood Pressure : / mmHG Vent. Rate : 110 BPM Atrial Rate : 000 BPM P-R Int : 000 ms QRS Dur : 094 ms QT Int : 292 ms P-R-T Axes : 000 018 065 degrees QTc Int : 395 ms Atrial fibrillation with rapid ventricular response Incomplete right bundle branch block Abnormal ECG When compared with ECG of 24-JUL-2022 08:53, No significant changes seen Referred By: Raymundo Tsang Electronically Signed By:JOEY KAMINSKI
[2022-07-24 11:48] LABS: ~Lactic Acid-LAB USE ONLY 2.2 mmol/L (0.5-2.0)
--- NOTE | 2022-07-24 11:50 | ECG_ITS ---
Test Reason : sob Blood Pressure : / mmHG Vent. Rate : 130 BPM Atrial Rate : 000 BPM P-R Int : 000 ms QRS Dur : 090 ms QT Int : 272 ms P-R-T Axes : 000 -40 072 degrees QTc Int : 400 ms Atrial fibrillation with rapid ventricular response Left axis deviation Minimal voltage criteria for LVH, may be normal variant ( Kashif product ) Possible Anterior infarct , age undetermined Abnormal ECG No previous ECGs available Referred By: Raymundo Tsang Electronically Signed By:JOEY KAMINSKI
[2022-07-24] MEDS: Enoxaparin Sodium 80 MG/0.8 ML SYRINGE SUBCUT (11:51)
[2022-07-24] MEDS: Azithromycin 500 MG in 0.9 % Sodium Chloride 250 ML 125 MG IV (11:51)
[2022-07-24] MEDS: Metoprolol Tartrate 50 MG TABLET PO (11:51)
[2022-07-24] MEDS: Buprenorphine/Naloxone 8/2 mg TAB.SUBL 1 TAB SUBLINGUAL ×2 (12:14→21:42)
--- NOTE | 2022-07-24 12:27 | PM.IMHP ---
History of Present Illness Date of Service: 07/24/22 Attending physician on admission: Mathew Del Cid Chief Complaint: Palpitations Pt is a 52-year-old male with a PMH significant for HLD, HTN, peripheral neuropathy, asthma, GERD,?Tariq's esophagus, and chronic back pain of who presents to the ED with?with multiple complaints. Patient states he awoke this morning feeling like he could not breathe. Patient felt like the abdomen was bloated and pushing against his lungs. Patient could feel his heart racing. He used his inhalers which provided no relief. Pt called for an ambulance. According to EMS they found patient in SVT with HR into the 140s when they arrived at the house. Gave patient 6 mg of adenosine with no improvement, then administered 12 mg adenosine which converted patient back into sinus rhythm. At the ED patient was found to be in AFib with RVR up to the 140s. Was given diltiazem and metoprolol headache and converted back into sinus rhythm. Patient states that yesterday he may have ?overdone it.? Patient says yesterday he was working out in the yard playing with the [employer] and cleaning out the garage. Was mostly in radha sun all day for 8-9 hours. Patient admits that he was not drinking water but instead 5-6 beers and had a ?small bump? of cocaine which helped him ?keep up with the kids?. Patient complains of chronic shortness of breath associated with being a current 1 pack a day smoker, but notes he has recently been coughing more lately and has foul-tasting sputum. Pt also complains of diffuse abdominal pain and chronic constipation he has had for years, followed by Dr. Gardner in GI. Patient's last bowel movement was at least 4 days ago, but patient notes he has gone up to 7 days without a bowel movement in the past. States milk of magnesia his 1 of the only thing that helps clear him out. Patient also complains of bilateral lower leg cramps alleviated with walking. Patient denies fever, chills, nausea, diarrhea, vomiting. No chest pain or pressure. In the ED patient was afebrile but tachycardic up to 145, satting at 97% on RA .Labs were significant for leukocytosis of 16.4, lactic acid 4.5 with repeated 2.2, bilirubin 1.5, AST 79, initial troponin of 35.7 with repeat at 2454.8. UA negative for UTI. Tox screen positive for cocaine. CT?of abdomen and pelvis showed right middle and right lower lobe bronchopneumonia, fatty liver, enlarged gallbladder with no gallstones seen by CT, and probable small bowel ileus with a moderate stool burden. EKG demonstrated AFib with RVR of 130 without clear evidence of ST elevations or depressions. Pt was treated with IVF, diltiazem, ketorolac, famotidine, metoprolol, ceftriaxone, and azithromycin. Pt will be admitted to the hospital for treatment and further evaluation of new onset AFib in setting of cocaine use and community-acquired pneumonia. Review of Systems Review of Systems: Palpitations Shortness of breath, chest tightness Productive cough Diffuse abdominal pain Chronic constipation Leg cramps Denies chest pain/pressure Yes all other systems are reviewed and are negative [facility] Medical History Asthma Tariq's esophagus determined by biopsy Chronic idiopathic constipation GERD (gastroesophageal reflux disease) Hx of opioid abuse Hyperlipidemia Hypertension Lower back pain Obesity Peripheral neuropathy Tubular adenoma Family History Father No problems noted. Mother No problems noted. Surgical History History of back surgery History of esophagogastroduodenoscopy (EGD) Hx of colonoscopy Social History Housing: Apartment Alcohol intake: never Patient Tobacco Use Status: Current everyday Tobacco user Tobacco use type: Cigarette Cigarette Packs Per Day: 1 Cigarettes Per Day: 20.0 e-Cigarette/Vaping Use: Never Used Second Hand Smoke Exposure: Yes Advance Directives: No Advance Directives Information Provided: No service: No Current occupational status: disabled Cognitive needs: No Hearing needs: No Vision needs: No Meds Allergies Allergy/AdvReac Type Severity Reaction Status Date / Time morphine Allergy Severe Anaphylaxis Verified 06/26/22 11:25 acetaminophen [From Tylenol] Allergy Unknown Gastrointestinal Verified 06/26/22 11:25 Upset Active Medications: Current Medications Buprenorphine/Naloxone (Buprenorphine/Naloxone 8/2 Mg Tab.Subl) 1 tab SUBLINGUAL TID LUCRECIA Last Admin: 07/24/22 12:14 Dose: 1 tab Azithromycin 500 mg/ Sodium (Chloride) 250 mls @ 125 mls/hr IV ONCE ONE Stop: 07/24/22 12:43 Last Admin: 07/24/22 11:51 Dose: 125 mls/hr Pharmacy Consult (Consult Rx Perform Med Rec) 1 each MISCELLANE ONCE PRN PRN Reason: Consult order Home Medications Medication Instructions Recorded Confirmed Last Taken Type buprenorphine 8 mg-naloxone 2 mg 1 tab sublingual TID 08/15/20 07/24/22 07/23/22 History sublingual tablet albuterol sulfate 90 mcg/actuation 90 mcg inhalation Q4-6H PRN 05/29/22 07/24/22 06/02/22 History aerosol inhaler (Ventolin HFA) Shortness Of Breath Or Wheezing citalopram 20 mg tablet 20 mg PO DAILY 06/26/22 07/24/22 07/23/22 History sucralfate 1 gram tablet 1 g PO DAILY 06/26/22 07/24/22 07/23/22 History fluticasone fur. 200 mcg-umeclid 1 ea inhalation DAILY 07/24/22 07/24/22 07/23/22 History 62.5 mcg-vilant 25 mcg inhalat.powder (Trelegy Ellipta) ibuprofen 600 mg tablet 600 mg PO TID 07/24/22 07/24/22 07/23/22 History multivitamin 1 tab PO DAILY 07/24/22 07/24/22 07/23/22 History pantoprazole 40 mg tablet,delayed 40 mg PO DAILY@0630 07/24/22 07/24/22 07/23/22 History release tadalafil 5 mg tablet 5 mg PO DAILY PRN Sexual Activity 07/24/22 07/24/22 Unknown History Physical Exam Vital Signs and Narrative: Vital Signs: Last Vital Signs Temp 99.9 F 07/24/22 10:47 Pulse 125 H 07/24/22 11:52 Resp 16 07/24/22 11:52 BP 133/83 07/24/22 11:52 Pulse Ox 94 07/24/22 11:52 O2 Del Method Room Air 07/24/22 11:52 BMI result Body Mass Index 25.2 Constitutional: Alert, in no acute distress. Mental Status: Oriented to person, place and time. Eyes: Pupils are equal, round, and reactive to light. Ear, Nose, and Throat: Oropharynx clear, mucous membranes moist. Ears and nose without deformities. Trachea midline. Respiratory: Diffuse expiratory coarse lung sounds with occasional wheezing. Cardiovascular: S1, S2 regular, tachycardic. Gastrointestinal: Abdomen soft, non-distended, with sharp right upper quadrant tenderness, and mild diffuse abdominal tenderness. Normal bowel sounds. Neurologic: Cranial nerves II-XII are grossly intact bilaterally. No focal neurological deficits. Moves all extremities spontaneously. Skin: No rashes or lesions noted. Musculoskeletal: No cyanosis or clubbing. Extremities: No edema. Psychiatric: Normal mood and affect. Results Labs 07/24/22 09:02 07/24/22 09:02 Labs: Laboratory Results - last 24 hr 07/24/22 07/24/22 07/24/22 09:02 09:02 09:02 MCV 92.3 MCH 32.3 MCHC 34.9 RDW 14.5 Plt Count 179 D MPV 8.8 L Immature Gran % (Auto) 0.2 Neut % (Auto) 85.8 H Lymph % (Auto) 6.4 L [place] % (Auto) 7.2 Eos % (Auto) 0.1 Baso % (Auto) 0.3 Lymph # (Auto) 1.1 L [place] # (Auto) 1.2 Eos # (Auto) 0.0 Baso # (Auto) 0.1 Abs Immat Gran (auto) 0.04 H Absolute Neuts (auto) 14.1 H Absolute Nucleated RBC 0.000 Nucleated RBC % (auto) 0.0 PT 11.4 INR 1.0 APTT 29.6 Anion Gap 20 Estim Creat Clear Calc 117.2 Estimated GFR > 60 Random Glucose 94 Lactic Acid Lactic Acid F/U @ 2Hr Calcium 9.2 Phosphorus 2.7 Magnesium 1.6 Total Bilirubin 1.5 H AST 79 H ALT 35 Alkaline Phosphatase 77 Troponin I High Sens Total Protein 7.4 Albumin 4.0 Lipase 13 TSH 0.61 Urine Color Urine Appearance Urine pH Ur Specific Peck Urine Protein Urine Glucose (UA) Urine Ketones Urine Blood Urine Nitrite Ur Leukocyte Esterase Urine RBC Urine WBC Ur Squamous Epith Cells Urine Bacteria Hyaline Casts Urine Opiates Screen Urine Fentanyl Screen Ur Barbiturates Screen Ur Phencyclidine Scrn Ur Amphetamines Screen U Benzodiazepines Scrn Urine Cocaine Screen U Marijuana (THC) Screen 07/24/22 07/24/22 07/24/22 09:02 09:02 10:41 MCV MCH MCHC RDW Plt Count MPV Immature Gran % (Auto) Neut % (Auto) Lymph % (Auto) [place] % (Auto) Eos % (Auto) Baso % (Auto) Lymph # (Auto) [place] # (Auto) Eos # (Auto) Baso # (Auto) Abs Immat Gran (auto) Absolute Neuts (auto) Absolute Nucleated RBC Nucleated RBC % (auto) PT INR APTT Anion Gap Estim Creat Clear Calc Estimated GFR Random Glucose Lactic Acid 4.5 H* Lactic Acid F/U @ 2Hr Calcium Phosphorus Magnesium Total Bilirubin AST ALT Alkaline Phosphatase Troponin I High Sens 35.7 H Total Protein Albumin Lipase TSH Urine Color Yellow Urine Appearance Cloudy Urine pH 8.0 Ur Specific Peck >= 1.030 H Urine Protein 30 (1+) H Urine Glucose (UA) Negative Urine Ketones Trace Urine Blood Small (1+) H Urine Nitrite Negative Ur Leukocyte Esterase Negative Urine RBC 0-2 Urine WBC 0-5 Ur Squamous Epith Cells 0-2 Urine Bacteria None Seen Hyaline Casts 0-2 Urine Opiates Screen Urine Fentanyl Screen Ur Barbiturates Screen Ur Phencyclidine Scrn Ur Amphetamines Screen U Benzodiazepines Scrn Urine Cocaine Screen U Marijuana (THC) Screen 07/24/22 07/24/22 10:41 11:25 MCV MCH MCHC RDW Plt Count MPV Immature Gran % (Auto) Neut % (Auto) Lymph % (Auto) [place] % (Auto) Eos % (Auto) Baso % (Auto) Lymph # (Auto) [place] # (Auto) Eos # (Auto) Baso # (Auto) Abs Immat Gran (auto) Absolute Neuts (auto) Absolute Nucleated RBC Nucleated RBC % (auto) PT INR APTT Anion Gap Estim Creat Clear Calc Estimated GFR Random Glucose Lactic Acid Lactic Acid F/U @ 2Hr 2.2 H* Calcium Phosphorus Magnesium Total Bilirubin AST ALT Alkaline Phosphatase Troponin I High Sens Total Protein Albumin Lipase TSH Urine Color Urine Appearance Urine pH Ur Specific Peck Urine Protein Urine Glucose (UA) Urine Ketones Urine Blood Urine Nitrite Ur Leukocyte Esterase Urine RBC Urine WBC Ur Squamous Epith Cells Urine Bacteria Hyaline Casts Urine Opiates Screen Not Detected Urine Fentanyl Screen Not Detected Ur Barbiturates Screen Not Detected Ur Phencyclidine Scrn Not Detected Ur Amphetamines Screen Not Detected U Benzodiazepines Scrn Not Detected Urine Cocaine Screen POSITIVE H U Marijuana (THC) Screen Not Detected Imaging Radiologist's Impressions: Impressions Abdomen/Pelvis CT 07/24/22 09:56 IMPRESSION: Right middle and right lower lobe bronchopneumonia. Fatty liver. Enlarged gallbladder. No gallstone seen by CT. Gallbladder could be better evaluated with HIDA scan or ultrasound. Probable small bowel ileus. Moderate stool burden. Fleischner guidelines were followed. Assessment and Plan (1) Atrial fibrillation with RVR: Status: Acute (2) CAP (community acquired pneumonia): Status: Acute (3) Abdominal pain: Status: Acute Plan Pt is a 52-year-old male with a PMH significant for HLD, HTN, peripheral neuropathy, asthma, GERD,?Tariq's esophagus, and chronic back pain of who presents to the ED with?with multiple complaints. Pt will be admitted to the hospital for treatment and further evaluation of new onset AFib in setting of cocaine use and community-acquired pneumonia. New onset AFib with RVR Pt presented to ED in AFib with RVR up to 140s Pt given diltiazem 20 mg IV, metoprolol 5 mg IV, and metoprolol 50 mg p.o. in ED Patient then converted to sinus tachycardia with sustained rate in the 120s Patient placed on Cardizem drip Given therapeutic Lovenox dose Pt denies previous history of palpitations or AFib Echocardiogram Cardiology consult Monitor on telemetry Elevated troponin Initial troponin elevated at 35.7 with repeated 2454.8 Patient not complaining of typical chest pain/pressure, EKG without significant ischemic changes Patient on therapeutic 1mg/kg Lovenox dose q12 Patient given full dose ASA, statin Cardiology consult Monitor on telemetry Repeat troponin Bronchopneumonia CT scan positive for right middle and right lower lobe bronchopneumonia Patient has been complaining of worsening chronic SOB, foul tasting sputum, increased cough Patient will be treated with ceftriaxone and azithromycin, started 07/24/2022 Monitor respiratory status Follow cultures Sepsis Pt meets sepsis criteria: Likely pneumonia, WBC, tachycardia, lactate 4.5 Patient has received 30 ml/kg IVF and broad-spectrum antibiotics Repeat lactic acid down-trending at 2.2 Chronic constipation Patient states that he has been dealing with chronic constipation for years, followed by Dr. Gardner in GI Last bowel movement at least 4 days ago Pt states sometimes goes [address] of abdomen showed probable small bowel ileus with a moderate stool burden Pt with diffuse abdominal pain, passing flatus Patient currently on regular diet Continue prucalopride Stool softeners p.r.n. Monitor bowel movement status Enlarged gallbladder CT of abdomen pelvis found enlarged gallbladder with no gallstones seen Patient complaining of diffuse abdominal pain, right upper quadrant tenderness upon physical examination Total bilirubin elevated 1.5, AST elevated at 79 Will get ultrasound of right upper quadrant Magnesium Patient's magnesium low normal at 1.6 Patient complaining of leg cramps Will give 2 g IV magnesium Follow BMP Moderate persistent asthma Does not appear to be in acute exacerbation Continue home inhalers Duonebs prn for wheezing GERD with a history of Tariq's esophagus Continue sucralfate, pantoprazole HTN Continue lisinopril, hydrochlorothiazide Insomnia Continue zolpidem Opioid use disorder Continue suboxone Full Code Attending:?Dr. Del Cid DVT Prophylaxis: Lovenox, therapeutic dose Pt will require a hospitalization of at least two nights for treatment of?new onset AFib with RVR and pneumonia with IV diltiazem and IV antibiotics and specialist consult. Time Spent With Patient Time: Total time managing care of this patient today ____ minutes. Quality Stroke Does the patient have a stroke diagnosis?: No VTE Prior VTE?: No VTE Risk Level:: Medical - moderate - high VTE Device Contraindication: Treatment Not Indicated VTE Drug Contraindication: N/A - Med Ordered
[2022-07-24 12:51] LABS: Cancel Lactic Acid Canceled
[2022-07-24] MEDS: dilTIAZem HCL 125 MG in 0.9 % Sodium Chloride 100 ML 10 MG IVCONT (14:33)
[2022-07-24] MEDS: Magnesium Sulfate/H2O 2 GM/50 ML PIGGYBACK IV (15:27)
[2022-07-24] MEDS: 0.9 % Sodium Chloride Flush 3 ML SYRINGE IVFLUSH (15:37)
--- NOTE | 2022-07-24 16:00 | CA_ITS ---
Transthoracic Echocardiogram Patient (Last, First, Middle): Nikko Alejandro, Gender: Male Date of : 1970 Age: 52 Procedure Date: 07/24/2022 Procedure Type: Transthoracic Echocardiogram Location: [facility] [place] Height: 182.88 cm Weight: 84.37 kg BSA: 2.07 m2 Heart Rate: bpm BP: 147 / 89 mmHg Palliative Medicine Physician: Referring MD: Cecelia ANG Symptoms: Elevated troponins, New onset AFib with RVR Study Quality: Good ECG Rhythm: Atrial flutter with rapid rate Conclusions: - Due to tachycardia difficult to assess LVEF, but suspect >50%. - Possible basal inferior/inferolateral hypokinesis. - No obvious valvular pathology seen on this study. Findings Left Ventricle Normal left ventricular cavity size. There is mildly increased left ventricular wall thickness. The left ventricular systolic function is normal. Diastolic function is indeterminate on the basis of available data. Due to tachycardia difficult to assess LVEF, but suspect >50%. Possible basal inferior/inferolateral hypokinesis. Right Ventricle Normal right ventricular cavity size and systolic function. Atria Both atria are normal in size. Aortic Valve The aortic valve was not well visualized. There is no aortic valve stenosis. There is no aortic valve regurgitation. Mitral Valve The mitral valve appears normal. There is mild mitral valve regurgitation. There is no mitral valve stenosis. Pulmonic Valve The pulmonic valve is likely normal. Tricuspid Valve Normal tricuspid valve structure. There is trace tricuspid valve regurgitation. There is no evidence of pulmonary hypertension. Great Vessels The aortic annulus and sinuses of valsalva are normal in size. Venous The inferior vena cava is normal in size and collapses greater than 50% with inspiration. There is a possible dilated coronary sinus. Pericardium/Pleural There is no evidence of pericardial effusion. Prior Study Comparison No prior study available for comparison. Recommendations, Care & Conclusions No obvious valvular pathology seen on this study. Measurements 2D Linear Measurements IVSd: 1.12 0.6-0.9/0.6-1.0 cm LVIDd: 5.18 3.9-5.3/4.2-5.9 cm LVIDd Index: 2.50 2.4-3.2/2.2-3.1 cm/m2 LVIDs: 3.80 2.0-3.6 cm LVPWd: 1.16 0.7-1.1 cm Ao Root: 3.00 2.1-3.5 cm LA Diam: 4.30 2.7-3.8/3.0-4.0 cm LAIDs Index: 2.08 1.5-2.3 cm/m2 LV Mass: 287.22 67-162/88-224 g LV Mass Index: 138.75 43-95/49-115 g/m2 LVOT Diam: 2.00 3.0+(-)1.3 cm 2D Systolic Function EF 4C: 43.10 >55% EF 2C: 51.10 >55% EF BiP: 48.20 >55% Mitral Valve MV Pk E: 0.77 MV Decel Time: 110.00 E'Lateral: 12.20 E'Medial: 14.70 E/E' Med: 5.20 E/E' Lat: 6.30 PHT: 32.00 MVA PHT: 6.88 Decel Mingo: 6.96 Aortic Valve AoV Pk Malachi: 1.32 AoV Mn Malachi: 0.87 AoV VTI: 0.23 AoV Pk Grad: 7.00 Aov Mn Grad: 4.00 ZAKIA Cont.VTI: 2.02 LVOT LVOT Pk Malachi: 0.84 LVOT Mn Malachi: 0.50 LVOT VTI: 0.15 LVOT Pk Grad: 3.00 LVOT Mn Grad: 1.00 LVOT Diam: 2.00 LVOT Area: 3.14 Diastolic Function MV Pk E: 0.77 E'Medial: 14.70 E/E' Med: 5.20 E' Laterial: 12.20 E/E' Lat: 6.30 Right Ventricle TAPSE (mm): 28.00 TVS' Malachi: 15.00 Tricuspid Valve TR Pk Malachi: 2.54 TR Pk Grad: 26.00 RA Press: 3.00 RVSP: 29.00 Great Vessels Aorta Ao Root-2D: 3.00 2.0-3.7 cm Ao Asc: 3.50 2.1-3.4 cm Pulmonary Valve PV Pk Malachi: 0.94 Peak PV Grad: 4.00 Updated in Other Vendor System with Status of Final Servando Forman MD electronically signed on 07/24/2022 4:42:48 PM with status of Final
--- NOTE | 2022-07-24 17:03 | PC.NURSE ---
cardizem drip titrated to 15mg/hr from 10mg/her per protocol. pt HR of 124.
[2022-07-24] MEDS: Aspirin 325 MG TABLET PO (17:18)
[2022-07-24] MEDS: Atorvastatin Calcium 40 MG TABLET PO (17:18)
[2022-07-24] MEDS: Metoprolol Tartrate 25 MG TABLET PO ×2 (18:13→21:41)
[2022-07-24 18:37] LABS: Troponin-I High Sensitivity 1661.1 ng/L (<3.5-35.0)
[2022-07-24] MEDS: Albuterol/Iprat 2.5/0.5MG 3 ML AMPUL.NEB INHALE (22:42)
[2022-07-25] MEDS: Enoxaparin Sodium 80 MG/0.8 ML SYRINGE SUBCUT ×2 (00:53→12:34)
[2022-07-25] MEDS: 0.9 % Sodium Chloride Flush 3 ML SYRINGE IVFLUSH ×3 (00:54→22:36)
[2022-07-25 03:59] VITALS: BP 133/74; PULSE 107; RESP 20; TEMP 36.6; O2SAT 95
[2022-07-25 06:51] LABS: Hematocrit 40.3 % (42.0-52.0); Hemoglobin 14.4 g/dl (14.0-18.0); Mean Corpuscular HGB Conc 35.7 g/dl (31.0-36.0); Mean Corpuscular Hemoglobin 32.4 pg (27.0-33.0); Mean Corpuscular Volume 90.8 fL (80.0-98.0); Mean Platelet Volume 9.1 fL (9.4-12.4); Platelet Count 147 X10*3/uL (160-400); Red Blood Count 4.44 X10*6/uL (4.60-5.80); Red Cell Distribution Width 13.9 % (11.0-16.0); White Blood Count 11.2 X10*3/uL (4.8-10.8)
[2022-07-25 07:20] LABS: Anion Gap 12 (12-20); Blood Urea Nitrogen 10 mg/dL (9-16); Calcium 8.8 mg/dL (8.4-10.2); Carbon Dioxide 25 mmol/L (22-29); Chloride 106 mmol/L (96-108); Creatinine Clr Calc Pharmacy 151.2; Estimated Glomerular Filt Rate > 60; Glucose Random 88 mg/dL (60-115); Magnesium 1.8 mg/dL (1.6-2.6); Potassium 3.9 mmol/L (3.3-5.1); Sodium 139 mmol/L (135-145)
[2022-07-25 07:31] VITALS: BP 132/87; PULSE 90; RESP 20; TEMP 36; O2SAT 94
[2022-07-25] MEDS: Atorvastatin Calcium 40 MG TABLET PO (09:08)
[2022-07-25] MEDS: Aspirin Enteric Coated 81 MG TABLET.DR PO (09:09)
[2022-07-25] MEDS: Multivitamin TABLET 1 TAB PO (09:09)
[2022-07-25] MEDS: Buprenorphine/Naloxone 8/2 mg TAB.SUBL 1 TAB SUBLINGUAL ×3 (09:09→22:35)
[2022-07-25] MEDS: Sucralfate 1 GM TABLET PO (09:09)
[2022-07-25] MEDS: Escitalopram Oxalate 10 MG TABLET PO (09:09)
[2022-07-25] MEDS: Metoprolol Tartrate 25 MG TABLET PO ×2 (09:09→12:34)
[2022-07-25] MEDS: hydroCHLOROthiazide 12.5 MG TABLET PO (09:09)
[2022-07-25] MEDS: lisinopriL 10 MG TABLET PO (09:09)
--- NOTE | 2022-07-25 09:16 | MHC.CM.PN ---
IMM DELIVERED PT LIVES ALONE IN AN APT ([address] [place]) INDEPENDENT AT BASELINE BUT USES A CANE OCCASIONALLY.PT WOULD LIKE TO COMPLETE A HCP. +COVID VAX X4 PCP DR. PAK AT [facility] DP: HOME, NO SERVICES ANTICIPATED. FRIEND WILL TRANSPORT HOME. CM WILL CONTINUE TO FOLLOW FOR DC PLAN/NEEDS.
--- NOTE | 2022-07-25 09:42 | PC.NURSE ---
pt HR elevated >100. per maintenance director lilibeth restarted t 10. will tritrat per protocol.
--- NOTE | 2022-07-25 11:07 | P.CONCA_ITS ---
History of Present Illness History of Present Illness Date of Service: 07/25/22 Chief complaint: new onset Afib with RVR, pneumonia Narrative: This is a cardiology consultation regarding atrial flutter as well as elevated troponins. Patient denies any prior cardiac history. He states that he felt some pressure in the chest and also had some racing of the heart. He has used cocaine and additionally several beers and also working in the sun all day for several hours. When he came to the hospital, he was found to be in atrial flutter with rapid rate. Troponins were high. He was positive for cocaine. Admitted with a diagnosis of atrial fibrillation rapid rate, pneumonia, NSTEMI. Currently, he states he is feeling better. No previous cardiac history. Review of Systems Review of Systems: Yes all other systems are reviewed and are negative Constitutional: Constitutional: Reports as per HPI and Reports no additional constitutional complaints Eyes: Eyes: Reports as per HPI and Denies no additional eye complaints ENT: Denies system reviewed and no additional complaints, except as documented and Reports as per HPI Cardiovascular: Cardiovascular: Reports as per HPI, Reports no additional cardiovascular complaints, Denies acrocyanosis, Denies cool extremities, Denies chest pain, Denies leg edema, Denies lightheadedness, Denies palpitations and Denies dyspnea Respiratory: Respiratory: Reports as per HPI, Denies no additional respiratory complaints and Denies dyspnea Gastrointestinal: Gastrointestinal: Reports as per HPI and Denies no additional gastrointestinal complaints Genitourinary: Genitourinary: Reports no additional male genitourinary complaints and Reports as per HPI Musculoskeletal: Musculoskeletal: Reports no additional musculoskeletal complaints and Reports as per HPI Integumentary/Breasts: Skin/Breast: Reports system reviewed and no additional complaints, except as docu Neurologic: Reports system reviewed and no additional complaints, except as documented and Reports as per HPI Psychiatric: Psychiatric: Reports no additional psychiatric complaints and Reports as per HPI Endocrine: Endocrine: Reports no additional endocrine complaints, Reports as per HPI and Denies palpitations Hematologic/Lymphatic: Hematologic/Lymphatic: Reports no additional hematologic/lymphatic complaints and Reports as per HPI Allergic/Immunologic: Allergic/Immunologic: Reports no additional allergic/immunologic complaints and Reports as per HPI [facility] Past Medical History Medical History Asthma Tariq's 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 Mother No problems noted. Surgical History Surgical History History of back surgery History of esophagogastroduodenoscopy (EGD) Hx of colonoscopy Social History Social History Household Members: Spouse Housing: Apartment Do you presently have visiting nurse or other home services: No Alcohol intake: never Patient Tobacco Use Status: Current everyday Tobacco user Tobacco use type: Cigarette Cigarette Packs Per Day: 1 Cigarettes Per Day: 20.0 Smoked in Last 30 Days: Yes e-Cigarette/Vaping Use: Never Used Patient Interested in Nicotine Replacement: Yes Patient Given Instructions on How to Stop Smoking: Yes Date Education Initiated: 07/24/22 Second Hand Smoke Exposure: Yes Use of substances other than those prescribed or required for medical reasons: No Currently Displaying Signs/Symptoms of Drug Intoxication Withdrawal: No Have you been hit, kicked, punched, or otherwise hurt by someone within the past year? If so, by whom?: No Do you feel safe in your current relationship?: Yes Is there a partner from a previous relationship who is making you feel unsafe now?: No Are you made to feel afraid or neglected: No Advance Directives: No Advance Directives Information Provided: No Do you have thoughts of harming others: None Do you have a plan to hurt others: No Plan Recently lost weight without trying: No Nutrition Risks: No Nutritional Risk Poor oral hygiene: No service: No Current occupational status: disabled Cognitive needs: No Hearing needs: No Vision needs: No Meds Allergies Allergy/AdvReac Type Severity Reaction Status Date / Time morphine Allergy Severe Anaphylaxis Verified 06/26/22 11:25 acetaminophen [From Tylenol] Allergy Unknown Gastrointestinal Verified 06/26/22 11:25 Upset Active Medications: Current Medications Albuterol Sulfate (Albuterol Sulfate 90 Mcg 8 Gm Inhaler) 1 puff INHALE Q4H PRN PRN Reason: Shortness Of Breath Or Wheezing Albuterol/Ipratropium (Albuterol/Iprat 2.5/0.5mg 3 Ml Ampul.Neb) 3 ml INHALE RQ4H WHILE AWAKE PRN PRN Reason: Shortness of Breath/Wheezing Last Admin: 07/24/22 22:42 Dose: 3 ml Aspirin (Aspirin Enteric Coated 81 Mg Tablet.Dr) 81 mg PO DAILY [facility] Last Admin: 07/25/22 09:09 Dose: 81 mg Atorvastatin Calcium (Atorvastatin Calcium 40 Mg Tablet) 40 mg PO DAILY [facility] Last Admin: 07/25/22 09:08 Dose: 40 mg Buprenorphine/Naloxone (Buprenorphine/Naloxone 8/2 Mg Tab.Subl) 1 tab SUBLINGUAL TID [facility] Last Admin: 07/25/22 09:09 Dose: 1 tab Clonazepam (Clonazepam 1 Mg Tablet) 1 mg PO BID PRN PRN Reason: Anxiety Docusate Sodium (Docusate Sodium 100 Mg Capsule) 100 mg PO DAILY PRN PRN Reason: Constipation Enoxaparin Sodium (Enoxaparin Sodium 80 Mg/0.8 Ml Syringe) 80 mg 1 mg/kg (80 mg) SUBCUT Q12H [facility] Last Admin: 07/25/22 00:53 Dose: 80 mg Escitalopram Oxalate (Escitalopram Oxalate 10 Mg Tablet) 10 mg PO DAILY [facility] Last Admin: 07/25/22 09:09 Dose: 10 mg Hydrochlorothiazide (Hydrochlorothiazide 12.5 Mg Tablet) 12.5 mg PO DAILY [facility]; Protocol Last Admin: 07/25/22 09:09 Dose: 12.5 mg Diltiazem HCl 125 mg/ Sodium (Chloride) 125 mls @ 0 mls/hr IVCONT .Q0M [facility]; Protocol Last Titration: 07/25/22 09:42 Dose: 10 mg/hr, 10 mls/hr Ibuprofen (Ibuprofen 600 Mg Tablet) 600 mg PO TID PRN PRN Reason: Pain, Mild (Pain Scale 1-3) Lisinopril (Lisinopril 10 Mg Tablet) 10 mg PO DAILY [facility]; Protocol Last Admin: 07/25/22 09:09 Dose: 10 mg Magnesium Hydroxide (Milk Of Magnesia 30 Ml Oral.Susp) 30 ml PO DAILY PRN PRN Reason: Constipation Metoprolol Tartrate (Metoprolol Tartrate 25 Mg Tablet) 25 mg PO QID [facility]; Protocol Last Admin: 07/25/22 09:09 Dose: 25 mg Multivitamins/Vitamin C (Multivitamin Tablet) 1 tab PO DAILY [facility] Last Admin: 07/25/22 09:09 Dose: 1 tab Nicotine Polacrilex (Nicotine Polacrilex 2 Mg Gum) 2 mg BUCCAL Q1H PRN PRN Reason: Nicotine Cravings Non-Formulary Medication (Tsuzmmqwlgi-Tovbufjrb-Kogcyszi [Trelegy Ellipta]) 1 each INHALE DAILY [facility] Non-Formulary Medication (Prucalopride [Motegrity]) 2 mg PO DAILY [facility] Omeprazole (Omeprazole 20 Mg Capsule.Dr) 20 mg PO DAILY@0630 [facility] Last Admin: 07/25/22 10:09 Dose: Not Given Ondansetron HCl (Ondansetron Hcl 4 Mg/2 Ml Vial) 4 mg IVPUSH Q8H PRN PRN Reason: Nausea and Vomiting Pharmacy Consult (Consult Rx Perform Med Rec) 1 each MISCELLANE ONCE PRN PRN Reason: Consult order Sodium Chloride (0.9 % Sodium Chloride Flush 3 Ml Syringe) 3 ml IVFLUSH QSHIFT [facility] Last Admin: 07/25/22 09:09 Dose: 3 ml Sucralfate (Sucralfate 1 Gm Tablet) 1 gm PO DAILY [facility] Last Admin: 07/25/22 09:09 Dose: 1 gm Zolpidem Tartrate (Zolpidem Tartrate 5 Mg Tablet) 5 mg PO BEDTIME PRN PRN Reason: sleep Home Medications Medication Instructions Recorded Confirmed Last Taken Type buprenorphine 8 mg-naloxone 2 mg 1 tab sublingual TID 08/15/20 07/24/22 07/23/22 History sublingual tablet albuterol sulfate 90 mcg/actuation 90 mcg inhalation Q4-6H PRN 05/29/22 07/24/22 06/02/22 History aerosol inhaler (Ventolin HFA) Shortness Of Breath Or Wheezing citalopram 20 mg tablet 20 mg PO DAILY 06/26/22 07/24/22 07/23/22 History sucralfate 1 gram tablet 1 g PO DAILY 06/26/22 07/24/22 07/23/22 History fluticasone fur. 200 mcg-umeclid 1 ea inhalation DAILY 07/24/22 07/24/22 07/23/22 History 62.5 mcg-vilant 25 mcg inhalat.powder (Trelegy Ellipta) ibuprofen 600 mg tablet 600 mg PO TID 07/24/22 07/24/22 07/23/22 History multivitamin 1 tab PO DAILY 07/24/22 07/24/22 07/23/22 History pantoprazole 40 mg tablet,delayed 40 mg PO DAILY@0630 07/24/22 07/24/22 07/23/22 History release tadalafil 5 mg tablet 5 mg PO DAILY PRN Sexual Activity 07/24/22 07/24/22 Unknown History Physical Exam Vital Signs: Vital Signs: Last Vital Signs Temp 96.8 F 07/25/22 07:31 Pulse 90 07/25/22 07:31 Resp 20 07/25/22 07:31 BP 132/87 07/25/22 07:31 Pulse Ox 94 07/25/22 07:31 O2 Del Method Room Air 07/25/22 07:31 BMI result Body Mass Index 25.2 Const: General: comfortable and no acute distress Orientation/consciousness: patient oriented x3 HEENT: Other: Unremarkable Head: Yes normal to inspection Neck: Neck: Yes normal visual inspection Chest: Chest palpation & inspection: normal inspection of the chest Resp: Auscultation: rhonchi Cardio: Palpation: normal PMI Heart sounds: S1 normal heart sound present, S2 normal heart sound present, no gallops, no murmurs and no rubs GI: Palpation (GI): Soft to palpation Back/Spine/Pelvis: Other: unremarkable Skin: General skin exam: no rashes or lesions noted Neuro: General: patient oriented x3 Extrem: General: Yes normal to inspection Psych: Mental Status: mental status grossly normal Objective Labs and Meds 07/25/22 06:32 07/25/22 06:32 Lab results: Laboratory Results - last 24 hr 07/24/22 07/24/22 07/24/22 10:41 11:25 14:19 WBC RBC Hgb Hct MCV MCH MCHC RDW Plt Count MPV Absolute Nucleated RBC Nucleated RBC % (auto) Sodium Potassium Chloride Carbon Dioxide Anion Gap BUN Creatinine Estim Creat Clear Calc Estimated GFR Random Glucose Lactic Acid F/U @ 2Hr 2.2 H* Calcium Magnesium Troponin I High Sens 2454.8 H* D Urine Color Yellow Urine Appearance Cloudy Urine pH 8.0 Ur Specific [place] >= 1.030 H Urine Protein 30 (1+) H Urine Glucose (UA) Negative Urine Ketones Trace Urine Blood Small (1+) H Urine Nitrite Negative Ur Leukocyte Esterase Negative Urine RBC 0-2 Urine WBC 0-5 Ur Squamous Epith Cells 0-2 Urine Bacteria None Seen Hyaline Casts 0-2 07/24/22 07/25/22 07/25/22 17:54 06:32 06:32 WBC 11.2 H RBC 4.44 L Hgb 14.4 Hct 40.3 L MCV 90.8 MCH 32.4 MCHC 35.7 RDW 13.9 Plt Count 147 L MPV 9.1 L Absolute Nucleated RBC 0.000 Nucleated RBC % (auto) 0.0 Sodium 139 Potassium 3.9 Chloride 106 Carbon Dioxide 25 Anion Gap 12 BUN 10 Creatinine 0.62 Estim Creat Clear Calc 151.2 Estimated GFR > 60 Random Glucose 88 Lactic Acid F/U @ 2Hr Calcium 8.8 Magnesium 1.8 Troponin I High Sens 1661.1 H* Urine Color Urine Appearance Urine pH Ur Specific [place] Urine Protein Urine Glucose (UA) Urine Ketones Urine Blood Urine Nitrite Ur Leukocyte Esterase Urine RBC Urine WBC Ur Squamous Epith Cells Urine Bacteria Hyaline Casts ECG Interpretation: EKG suggestive of atrial flutter with rapid ventricular rate. First EKG difficult to say, could be flutter or fibrillation. Imaging Radiologist's impression: Impressions Chest X-Ray 07/24/22 09:19 IMPRESSION: 1. No acute cardiopulmonary process seen. 2. Prominent reticular interstitial changes in both lung bases. Consider CT chest exam for follow up. Assessment and Plan (1) Atrial flutter with rapid ventricular response: Status: Acute Currently on diltiazem drip. May be continued and hope that he converts. He is also on metoprolol. On therapeutic anticoagulation. (2) NSTEMI (non-ST elevated myocardial infarction): Status: Acute Troponin levels are 35 followed by 2450 followed by 1661. Could be related to a combination of cocaine related vasospasm as well as atrial flutter with rapid rate causing demand. Echo seem to have preserved LVEF and possible basal i nferior/inferolateral hypokinesis. At the current time, he is pain free. Continue Lovenox at therapeutic dose. Aspirin, statins. Eventually, ischemia workup with either stress testing or cardiac catheterization. (3) Cocaine abuse: Status: Acute Must refrain or there is a high likelihood of cardiac morbidity including . Plan Discussed with Dr. Del Cid. Time Spent With Patient Time: Total time managing care of this patient today ____ minutes. Procedures Date of Service Date of Service: 07/25/22
[2022-07-25] MEDS: dilTIAZem HCL 125 MG in 0.9 % Sodium Chloride 100 ML 10 MG IVCONT (11:20)
[2022-07-25 11:43] VITALS: BP 140/78; PULSE 70; RESP 18; TEMP 36.4; O2SAT 96
[2022-07-25] MEDS: Nicotine Polacrilex 2 MG GUM BUCCAL (12:35)
--- NOTE | 2022-07-25 12:40 | HE.PHANOTE ---
PT OWN TRELEGY AND MOTEGRITY RECEIVED, VERIFIED AND SENT BACK TO FLOOR TO BE PUT IN PT OWN BIN
--- NOTE | 2022-07-25 13:50 | P.PNIM_ITS ---
Subjective Subjective Date of Service: 07/25/22 Interval History: Brief period of sinus tachycardia overnight. .. Returned AFib with rapid response this a.m.. Cardizem drip restarted. No cardiac complaints Review of Systems Denies chest pain Denies shortness of breath Denies nausea vomiting diarrhea Denies fever chills Physical Exam Vital Signs: Vital Signs: Last Vital Signs Temp 97.6 F 07/25/22 11:43 Pulse 70 07/25/22 11:43 Resp 18 07/25/22 11:43 BP 140/78 H 07/25/22 11:43 Pulse Ox 96 07/25/22 11:43 O2 Del Method Room Air 07/25/22 11:43 BMI result Body Mass Index 25.2 Const: Other: Awake alert oriented x3 no acute distress Resp: Other: Clear to auscultation bilaterally no rales rhonchi or wheezes Cardio: Other: No S4; positive S1-S2; no S3 murmurs rubs or gallops. Irregularly regular Neuro: Other: Cranial nerves 2-12 grossly intact as tested motor is 5/5 all extremities. Sensation is intact. Cognition is appropriate Extrem: Other: No edema bilaterally Objective Data Active Medications Albuterol Sulfate (Albuterol Sulfate 90 Mcg 8 Gm Inhaler) 1 puff INHALE Q4H PRN PRN Reason: Shortness Of Breath Or Wheezing Albuterol/Ipratropium (Albuterol/Iprat 2.5/0.5mg 3 Ml Ampul.Neb) 3 ml INHALE RQ4H WHILE AWAKE PRN PRN Reason: Shortness of Breath/Wheezing Last Admin: 07/24/22 22:42 Dose: 3 ml Documented By: REYNALDO Aspirin (Aspirin Enteric Coated 81 Mg Tablet.Dr) 81 mg PO DAILY [facility] Last Admin: 07/25/22 09:09 Dose: 81 mg Documented By: LINA Atorvastatin Calcium (Atorvastatin Calcium 40 Mg Tablet) 40 mg PO DAILY [facility] Last Admin: 07/25/22 09:08 Dose: 40 mg Documented By: LINA Buprenorphine/Naloxone (Buprenorphine/Naloxone 8/2 Mg Tab.Subl) 1 tab SUBLINGUAL TID [facility] Last Admin: 07/25/22 09:09 Dose: 1 tab Documented By: LINA Clonazepam (Clonazepam 1 Mg Tablet) 1 mg PO BID PRN PRN Reason: Anxiety Docusate Sodium (Docusate Sodium 100 Mg Capsule) 100 mg PO DAILY PRN PRN Reason: Constipation Enoxaparin Sodium (Enoxaparin Sodium 80 Mg/0.8 Ml Syringe) 80 mg 1 mg/kg (80 mg) SUBCUT Q12H [facility] Last Admin: 07/25/22 12:34 Dose: 80 mg Documented By: ALEX Escitalopram Oxalate (Escitalopram Oxalate 10 Mg Tablet) 10 mg PO DAILY [facility] Last Admin: 07/25/22 09:09 Dose: 10 mg Documented By: LINA Hydrochlorothiazide (Hydrochlorothiazide 12.5 Mg Tablet) 12.5 mg PO DAILY [facility]; Protocol Last Admin: 07/25/22 09:09 Dose: 12.5 mg Documented By: LINA Diltiazem HCl 125 mg/ Sodium (Chloride) 125 mls @ 0 mls/hr IVCONT .Q0M [facility]; Protocol Last Admin: 07/25/22 11:20 Dose: 10 mg/hr, 10 mls/hr Documented By: ALEX Ibuprofen (Ibuprofen 600 Mg Tablet) 600 mg PO TID PRN PRN Reason: Pain, Mild (Pain Scale 1-3) Lisinopril (Lisinopril 10 Mg Tablet) 10 mg PO DAILY [facility]; Protocol Last Admin: 07/25/22 09:09 Dose: 10 mg Documented By: LINA Magnesium Hydroxide (Milk Of Magnesia 30 Ml Oral.Susp) 30 ml PO DAILY PRN PRN Reason: Constipation Metoprolol Tartrate (Metoprolol Tartrate 50 Mg Tablet) 50 mg PO Q6H [facility]; Protocol Multivitamins/Vitamin C (Multivitamin Tablet) 1 tab PO DAILY [facility] Last Admin: 07/25/22 09:09 Dose: 1 tab Documented By: LINA Nicotine Polacrilex (Nicotine Polacrilex 2 Mg Gum) 2 mg BUCCAL Q1H PRN PRN Reason: Nicotine Cravings Last Admin: 07/25/22 12:35 Dose: 2 mg Documented By: ALEX Pt Own (Fluticasone- Umeclidin-Vilanter [ Trelegy Ellipta] 200 -62.5-25 Mcg 1 each INHALE DAILY [facility] Last Admin: 07/25/22 13:44 Dose: Not Given Documented By: LINA Non-Admin Reason: pt refused Pt Own (Prucalopride [Motegrity] 2 Mg Tablet) 2 mg PO DAILY [facility] Last Admin: 07/25/22 13:43 Dose: 2 mg Documented By: LINA Comments: given late due to unavailable at the time Omeprazole (Omeprazole 20 Mg Capsule.) 20 mg PO DAILY@0630 [facility] Last Admin: 07/25/22 10:09 Dose: Not Given Documented By: LINA Non-Admin Reason: not given by previous nurse Ondansetron HCl (Ondansetron Hcl 4 Mg/2 Ml Vial) 4 mg IVPUSH Q8H PRN PRN Reason: Nausea and Vomiting Pharmacy Consult (Consult Rx Perform Med Rec) 1 each MISCELLANE ONCE PRN PRN Reason: Consult order Sodium Chloride (0.9 % Sodium Chloride Flush 3 Ml Syringe) 3 ml IVFLUSH QSHIFT [facility] [place] Last Admin: 07/25/22 09:09 Dose: 3 ml Documented By: LINA Sucralfate (Sucralfate 1 Gm Tablet) 1 gm PO DAILY [facility] [place] Last Admin: 07/25/22 09:09 Dose: 1 gm Documented By: LINA Zolpidem Tartrate (Zolpidem Tartrate 5 Mg Tablet) 5 mg PO BEDTIME PRN PRN Reason: sleep Labs 07/25/22 06:32 07/25/22 06:32 Labs: Laboratory Results - last 24 hr 07/24/22 07/24/22 07/25/22 14:19 17:54 06:32 MCV 90.8 MCH 32.4 MCHC 35.7 RDW 13.9 Plt Count 147 L MPV 9.1 L Absolute Nucleated RBC 0.000 Nucleated RBC % (auto) 0.0 Anion Gap Estim Creat Clear Calc Estimated GFR Random Glucose Calcium Magnesium Troponin I High Sens 2454.8 H* D 1661.1 H* 07/25/22 06:32 MCV MCH MCHC RDW Plt Count MPV Absolute Nucleated RBC Nucleated RBC % (auto) Anion Gap 12 Estim Creat Clear Calc 151.2 Estimated GFR > 60 Random Glucose 88 Calcium 8.8 Magnesium 1.8 Troponin I High Sens Microbiology Microbiology Results: Microbiology 07/24/22 10:04 Blood Culture - Preliminary Blood - Venous No growth after 24 hours. 07/24/22 10:03 Blood Culture - Preliminary Blood - Venous No growth after 24 hours. Assessment and Plan (1) Sepsis: Status: Acute (2) Atrial flutter with rapid ventricular response: Status: Acute (3) NSTEMI (non-ST elevated myocardial infarction): Status: Acute (4) CAP (community acquired pneumonia): Status: Acute Plan Pt is a 52-year-old male with a PMH significant for HLD, HTN, peripheral neuropathy, asthma, GERD,?Tariq's esophagus, and chronic back pain of who presents to the ED with?with multiple complaints. Pt will be admitted to the hospital for treatment and further evaluation of new onset Aflutter in setting of cocaine use and community-acquired pneumonia. 1.Sepsis -likely not sepsis on arrival; tachycardia related to a flutter not infection -symptoms resolved 2..New onset AFlutter with RVR -continue Cardizem drip as ordered -increased beta-blockade; metoprolol 50 q.6 hours -echo done. . . Preliminary reading no acute wall motion abnormalities EF greater than 50 -Lovenox 1 milligram/kilogram q.12 hours -further workup i.e. stress test/cardiac catheterization as per Cardiology 3. Community-acquired Pneumonia -right middle/right lower by CT -ceftriaxone/doxycycline (2) 4. Cholestatic LFTs (patient asymptomatic) -repeat labs in a.m. -if persistent right upper quadrant ultrasound 5.HTN -acceptable control on current therapy -adjust as indicated Insomnia Continue zolpidem Opioid use disorder Continue suboxone Full Code Lovenox, Patient will require ongoing hospitalization for IV Cardizem to treat atrial flutter and IV antibiotics to treat community-acquired pneumonia Time Spent With Patient Time: Total time managing care of this patient today ____ minutes. Quality Stroke Does the patient have a stroke diagnosis?: No VTE Prior VTE?: No VTE Risk Level:: Medical - moderate - high VTE Device Contraindication: Treatment Not Indicated VTE Drug Contraindication: N/A - Med Ordered
[2022-07-25] MEDS: cefTRIAXone sodium 1 GM in 0.9 % Sodium Chloride 50 ML IV (14:23)
[2022-07-25] MEDS: Metoprolol Tartrate 50 MG TABLET PO ×2 (14:23→22:35)
[2022-07-25 15:31] VITALS: BP 130/94; PULSE 82; RESP 14; TEMP 36.4; O2SAT 98
[2022-07-25] MEDS: Doxycycline Hyclate 100 MG in 0.9 % Sodium Chloride 250 ML 166.67 MG IV (15:47)
[2022-07-25 16:30] LABS: INTERNATIONAL NORM RATIO 1.1 (0.9-1.1); Prothrombin Time 12.5 SEC (10.0-13.1)
[2022-07-25 19:30] VITALS: BP 120/71; PULSE 82; RESP 18; TEMP 37.2; O2SAT 98
[2022-07-25] MEDS: Zolpidem Tartrate 5 MG TABLET PO (22:35)
[2022-07-25 23:10] VITALS: BP 143/84; RESP 16; TEMP 37.1; O2SAT 96
[2022-07-26] MEDS: Enoxaparin Sodium 80 MG/0.8 ML SYRINGE SUBCUT ×2 (00:38→14:52)
[2022-07-26 04:00] VITALS: BP 135/70; PULSE 52; RESP 18; TEMP 36.1; O2SAT 96
[2022-07-26] MEDS: Doxycycline Hyclate 100 MG in 0.9 % Sodium Chloride 250 ML 166.7 MG IV (04:43)
[2022-07-26] MEDS: Omeprazole 20 MG CAPSULE.DR PO (06:41)
[2022-07-26 07:08] VITALS: BP 136/75; PULSE 55; RESP 20; TEMP 36.8; O2SAT 93
[2022-07-26] MEDS: Escitalopram Oxalate 10 MG TABLET PO (10:04)
[2022-07-26] MEDS: Sucralfate 1 GM TABLET PO (10:04)
[2022-07-26] MEDS: Multivitamin TABLET 1 TAB PO (10:04)
[2022-07-26] MEDS: Atorvastatin Calcium 40 MG TABLET PO (10:04)
[2022-07-26] MEDS: Aspirin Enteric Coated 81 MG TABLET.DR PO (10:04)
[2022-07-26] MEDS: hydroCHLOROthiazide 12.5 MG TABLET PO (10:05)
[2022-07-26] MEDS: 0.9 % Sodium Chloride Flush 3 ML SYRINGE IVFLUSH (10:05)
[2022-07-26] MEDS: lisinopriL 10 MG TABLET PO (10:05)
[2022-07-26] MEDS: Buprenorphine/Naloxone 8/2 mg TAB.SUBL 1 TAB SUBLINGUAL ×2 (10:06→14:52)
--- NOTE | 2022-07-26 10:31 | P.PNCA_ITS ---
Subjective Subjective Date of Service: 07/26/22 Interval history: He states he is feeling okay. No further complaints at this time. Not having any active chest pain. Review of Systems Review of Systems Yes all other systems are reviewed and are negative Constitutional: Reports as per HPI and Reports no additional constitutional complaints Eyes: Reports as per HPI and Denies no additional eye complaints Denies system reviewed and no additional complaints, except as documented and Reports as per HPI Cardiovascular: Reports as per HPI, Reports no additional cardiovascular complaints, Denies acrocyanosis, Denies cool extremities, Denies chest pain, Denies leg edema, Denies lightheadedness, Denies palpitations and Denies dyspnea Respiratory: Reports as per HPI, Denies no additional respiratory complaints and Denies dyspnea Gastrointestinal: Reports as per HPI and Denies no additional gastrointestinal complaints Genitourinary: Reports no additional male genitourinary complaints and Reports as per HPI Musculoskeletal: Reports no additional musculoskeletal complaints and Reports as per HPI Skin/Breast: Reports system reviewed and no additional complaints, except as docu Reports system reviewed and no additional complaints, except as documented and Reports as per HPI Psychiatric: Reports no additional psychiatric complaints and Reports as per HPI Endocrine: Reports no additional endocrine complaints, Reports as per HPI and Denies palpitations Hematologic/Lymphatic: Reports no additional hematologic/lymphatic complaints and Reports as per HPI Allergic/Immunologic: Reports no additional allergic/immunologic complaints and Reports as per HPI Physical Exam Vital Signs: Last Vital Signs Temp 98.3 F 07/26/22 07:08 Pulse 55 07/26/22 07:08 Resp 20 07/26/22 07:08 BP 136/75 07/26/22 07:08 Pulse Ox 93 07/26/22 07:08 O2 Del Method Room Air 07/26/22 07:08 BMI result Body Mass Index 25.2 Const General: comfortable and no acute distress Orientation/consciousness: patient oriented x3 HEENT Other: Unremarkable Head: Yes normal to inspection Neck Neck: Yes normal visual inspection Chest Chest palpation & inspection: normal inspection of the chest Resp Auscultation: clear to auscultation bilaterally Cardio Palpation: normal PMI Heart sounds: S1 normal heart sound present, S2 normal heart sound present, no gallops, no murmurs and no rubs GI Palpation (GI): Soft to palpation Back/Spine/Pelvis Other: unremarkable Skin General skin exam: no rashes or lesions noted Neuro General: patient oriented x3 Extrem General: Yes normal to inspection Psych Mental Status: mental status grossly normal Objective Labs and Meds 07/25/22 06:32 07/25/22 06:32 Lab results: Laboratory Results - last 24 hr 07/25/22 16:12 PT 12.5 INR 1.1 Progress Note: A&P Assessment and plan (1) Atrial flutter with rapid ventricular response: Status: Acute Assessment and Plan: Back in normal sinus rhythm. Off diltiazem drip. On oral metoprolol. On therapeutic anticoagulation with Lovenox. Probably candidate for long-term anticoagulation based on history of hypertension, likely CAD. (2) NSTEMI (non-ST elevated myocardial infarction): Status: Acute Assessment and Plan: Troponin levels are 35 followed by 2450 followed by 1661. Could be related to a combination of cocaine related vasospasm as well as atrial flutter with rapid rate causing demand. Echo seem to have preserved LVEF and possible basal inferior/inferolateral hypokinesis. On therapeutic dose Lovenox, aspirin, beta-blockers and statins. We will arrange a diagnostic cardiac catheterization. (3) Cocaine abuse: Status: Acute Assessment and Plan: Must refrain or there is a high likelihood of cardiac morbidity including . Plan Discussed with Dr. Del Cid. Will contact [facility] for transfer and bed. Time Spent With Patient Time: Total time managing care of this patient today ____ minutes. Progress Note: Quality Stroke Does the patient have a stroke diagnosis?: No Procedures Date of Service Date of Service: 07/26/22
--- NOTE | 2022-07-26 11:04 | P.DS_ITS ---
DS: Providers Provider Date of Service: 07/26/22 Date of admission: 07/24/22 13:50 Primary care physician: Nino Daniel MD Consults: 07/24/22 13:55 Consult to Cardiology Routine Consulting Provider: [facility] Reason for consultation: New onset AFib with RVR DS: Diagnosis Discharge Diagnosis (1) Atrial flutter with rapid ventricular response: Status: Acute (2) NSTEMI (non-ST elevated myocardial infarction): Status: Acute (3) Cocaine abuse: Status: Acute DS: Summary Hospital Course Hospital Course: 52-year-old male with a PMH significant for HLD, HTN, peripheral neuropathy, asthma, GERD,?Tariq's esophagus, and chronic back pain of who presents to the ED with?with multiple complaints.? Patient states he awoke this morning feeling like he could not breathe.? Patient felt like the abdomen was bloated and pushing against his lungs. Patient could feel his heart racing.? He used his i nhalers which provided no relief. Pt called for an ambulance. According to EMS they found patient in SVT with HR into the 140s when they arrived at the house.? Gave patient 6 mg of adenosine with no improvement, then administered 12 mg adenosine which converted patient back into sinus rhythm.? At the ED patient was found to be in AFib with RVR up to the 140s.? Was given diltiazem and metoprolol headache and converted back into sinus rhythm.? Patient states that yesterday he may have ?overdone it.?? Patient says yesterday he was working out in the yard playing with the [employer] and cleaning out the garage. Was mostly in radha sun all day for 8-9 hours.? Patient admits that he was not drinking water but instead 5-6 beers and had a ?small bump? of cocaine which helped him ?keep up with the kids?.? Patient complains of chronic shortness of breath associated with being a current 1 pack a day smoker, but notes he has recently been coughing more lately and has foul-tasting sputum.? Pt also complains of diffuse abdominal pain and chronic constipation he has had for years, followed by Dr. Gardner in GI.? Patient's last bowel movement was at least 4 days ago, but patient notes he has gone up to 7 days without a bowel movement in the past.? States milk of magnesia his 1 of the only thing that helps clear him out.? Patient also complains of bilateral lower leg cramps alleviated with walking.? Patient denies fever, chills, nausea, diarrhea, vomiting.? No chest pain or pressure. In the ED patient was afebrile but tachycardic up to 145, satting at 97% on RA .Labs were significant for leukocytosis of 16.4, lactic acid 4.5 with repeated 2.2, bilirubin 1.5, AST 79, initial troponin of 35.7 with repeat at 2454.8.? UA negative for UTI.? Tox screen positive for cocaine. CT?of abdomen and pelvis showed right middle and right lower lobe bronchopneumonia, fatty liver, enlarged gallbladder with no gallstones seen by CT, and probable small bowel ileus with a moderate stool burden. EKG demonstrated AFib with RVR of 130 without clear evidence of ST elevations or depressions. Pt was treated with IVF, diltiazem, ketorolac, famotidine, metoprolol, ceftriaxone, and azithromycin. Hospital Course Patient was admitted to telemetry and maintained on a diltiazem drip. Oral metoprolol was added 50 mg q.6 hours. Approximately 36 hours into hospitalization patient did convert to sinus rhythm has maintained it since then. 2D echo was done and given troponins peak at 2450; this demonstrated preserved LVEF and possible basilar inferior inferolateral hypokinesis. At no time did the complain of any cardiac symptoms. Patient had mild shortness of breath for 2-3 days prior to admission; CT of abdomen positive for right middle right lower lobe bronchopneumonia. He was started on ceftriaxone/azithromycin (04/07). He was seen by Cardiology and the decision was made to transfer for urgent cardiac catheterization Time Spent with Patient Time attestation: Total time managing care of this patient today ____ minutes. Discharge coordination time: Greater than 30 minutes Quality: Safe Use of Opioids Does Pt have an Active Cancer Diagnosis on the Problem List?: No Quality: Stroke Does the patient have a stroke diagnosis?: No Physical Exam Vital Signs: Vital Signs: Last Vital Signs Temp 98.3 F 07/26/22 07:08 Pulse 55 07/26/22 07:08 Resp 20 07/26/22 07:08 BP 136/75 07/26/22 07:08 Pulse Ox 93 07/26/22 07:08 O2 Del Method Room Air 07/26/22 07:08 BMI result Body Mass Index 25.2 Const: Other: Awake alert oriented x3 no acute distress Resp: Other: Clear to auscultation bilaterally no rales rhonchi or wheezes Cardio: Other: No S4; positive S1-S2; no S3 murmurs rubs or gallops. Irregularly regular Neuro: Other: Cranial nerves 2-12 grossly intact as tested motor is 5/5 all extremities. Sen sation is intact. Cognition is appropriate Extrem: Other: No edema bilaterally DS: Data Data Completed and Pending Labs on day of discharge: Laboratory Results - last 24 hr 07/25/22 16:12 PT 12.5 INR 1.1 Preliminary micro results at discharge 07/24/22 10:04 Blood Culture - Preliminary Blood - Venous No growth after 24 hours. 07/24/22 10:03 Blood Culture - Preliminary Blood - Venous No growth after 24 hours. Discharge Plan Discharge Anticipated Discharge Date/Time: 07/26/22 11:09 Patient Disposition: [facility] Discharge Diagnosis: NSTEMI Referrals: Nino Daniel MD [Primary Care Provider] - 1 Week Discharge Medications: New nicotine (polacrilex) 2 mg Gum 2 mg buccal Q1H PRN (Reason: Nicotine Cravings) Qty: 60 0RF ceftriaxone 1 gram Recon Soln 1 g IV Q24H Qty: 7 0RF doxycycline hyclate [Doxy-100] 100 mg Recon Soln 100 mg IV Q12H Qty: 7 0RF metoprolol tartrate 50 mg Tablet 50 mg PO Q6H Qty: 60 0RF Protocol: Hold for SBP/HR < HOLD for SBP < : 90 HOLD for HR < : 60 enoxaparin 80 mg/0.8 mL Syringe 80 mg subcut Q12H Qty: 8 0RF atorvastatin [Lipitor] 80 mg tablet 80 mg PO DAILY Qty: 30 0RF Continued zolpidem [Ambien] 10 mg tablet 10 mg PO BEDTIME PRN (Reason: sleep) Qty: 30 5RF clonazepam [Klonopin] 1 mg tablet 1 mg PO BID PRN (Reason: Anxiety) Qty: 60 5RF Trelegy Ellipta 200-62.5-25 mcg blister with device 1 ea inhalation DAILY multivitamin Tablet 1 tab PO DAILY pantoprazole 40 mg tablet,delayed release (DR/EC) 40 mg PO DAILY@0630 Rx Instructions: take one tablet half an hour before breakfast hydrochlorothiazide 12.5 mg tablet 12.5 mg PO DAILY Qty: 90 8RF lisinopril 10 mg tablet 10 mg PO DAILY Qty: 90 8RF Motegrity 2 mg tablet 2 mg PO DAILY Qty: 90 2RF buprenorphine-naloxone 8-2 mg tablet, sublingual 1 tab sublingual TID Patient Comments: TOOK HALF A FILM THIS AM albuterol sulfate [Ventolin HFA] 90 mcg/actuation HFA aerosol inhaler 90 mcg inhalation Q4-6H PRN (Reason: Shortness Of Breath Or Wheezing) sucralfate 1 gram tablet 1 g PO DAILY citalopram 20 mg tablet 20 mg PO DAILY Discontinued ibuprofen 600 mg tablet 600 mg PO TID tadalafil 5 mg tablet 5 mg PO DAILY PRN (Reason: Sexual Activity) Discharge Orders: Discharge Order (Routine); Ordered 07/26/22 Ordered By: Mathew Del Cid Diet: Advance to usual diet Activity on Discharge: As tolerated Stand Alone Forms: Patient Portal Discharge page Care Plan Goals: Continue Lovenox high-dose statin aspirin. Further meds as per [facility] Concerns: Transfer to [facility] for urgent diagnostic cardiac catheterization Plan of Treatment: As per receiving team Assessment: See discharge summary
[2022-07-26 11:18] VITALS: BP 149/79; PULSE 63; RESP 20; TEMP 37.1; O2SAT 94
--- NOTE | 2022-07-26 11:27 | MHC.CM.PN ---
DP: PT TO BE TRANSFERRED TO [facility] FOR URGENT DIAGNOSTIC CARDIAC CATH
[2022-07-26 11:57] LABS: IDNOW Serial# BCCEAD1C
[2022-07-26 11:58] LABS: COVID-19 Test Negative (Negative)
[2022-07-26 15:06] VITALS: BP 171/78; PULSE 55; RESP 18; TEMP 36.4; O2SAT 96
--- NOTE | 2022-07-26 17:53 | HE.PHANOTE ---
Re: pt own meds Patient meds were left behind when patient was transferred to [facility]. I called him on 07/26/22 (phone [phone]) and he is going to try and find a home office representative to come and pick these up. There are 2 inhalers and a Motegrity.
== END 2022-07-26 16:11 | disposition short-term general hospital (02) | DRG 280 ==
LOC: HO.ED 11:43 → HO.EDOVER 14:10 → HO.IMC 14:11
PROVIDERS: Admitting Provider Student in an Organized Health Care Education/Training Program; Emergency Provider Emergency Medicine; PCP Internal Medicine; Visit Provider Hospitalist
DX: I21.4 Non-ST elevation (NSTEMI) myocardial infarction (principal); J18.9 Pneumonia, unspecified organism; F11.20 Opioid dependence, uncomplicated; I48.91 Unspecified atrial fibrillation; K21.9 Gastro-esophageal reflux disease without esophagitis; K76.0 Fatty (change of) liver, not elsewhere classified; J45.40 Moderate persistent asthma, uncomplicated; G47.00 Insomnia, unspecified; K59.09 Other constipation; F14.10 Cocaine abuse, uncomplicated; K22.70 Barrett's esophagus without dysplasia; F17.210 Nicotine dependence, cigarettes, uncomplicated; Z20.822 Contact with and (suspected) exposure to COVID-19; Z71.6 Tobacco abuse counseling; Z88.5 Allergy status to narcotic agent; Z88.6 Allergy status to analgesic agent; Z79.899 Other long term (current) drug therapy
CPT/HCPCS: 36415; 71045; 74177; 80048; 80053; 80307; 81001; 81003; 83605; 83690; 83735; 84100; 84443; 84484; 85025; 85027; 85610; 85730; 87040; 87635; 93005; 93306; 94640; 99285; J0456; J0696; J1650; J1885; J3475; Q9957; Q9967

== ENCOUNTER 2022-08-10 23:25 | Emergency (ER) | payer MEDICARE, MEDICAID, SELFPAY ==
--- NOTE | 2022-08-10 | ECG_ITS ---
Test Reason : ETOH Blood Pressure : / mmHG Vent. Rate : 072 BPM Atrial Rate : 072 BPM P-R Int : 178 ms QRS Dur : 104 ms QT Int : 394 ms P-R-T Axes : 074 011 063 degrees QTc Int : 431 ms Normal sinus rhythm Normal ECG When compared with ECG of 24-JUL-2022 14:19, Previous ECG has undetermined rhythm, needs review Nonspecific T wave abnormality no longer evident in Inferior leads Referred By: Generic ED Physician Electronically Signed By:LEYLA IGLESIAS MD
--- NOTE | ~2022-08-10 | CT_ITS ---
EXAMINATION: NONCONTRAST HEAD CT NONCONTRAST CERVICAL SPINE CT INDICATION INFORMATION: Fall. COMPARISON: 06/17/2020 TECHNIQUE: Separate noncontrast CT examinations of the head and cervical spine were performed. Coronal and sagittal images were created for each examination at the technologist workstation. This CT examination was performed using dose optimization techniques as appropriate, variously including the following: *Automated exposure control *Adjustment of mA and/or kV according to patient size (this includes techniques or standardized protocols for targeted exams where dose is matched to indication/reason for exam; i.e. extremities or head) *Use of iterative reconstruction technique DLP: 1222 mGy-cm FINDINGS: Head: There is no evidence of acute intracranial hemorrhage or territorial infarction. No abnormal mass effect or midline shift is seen. Polanco to white matter differentiation is well preserved. No extra-axial fluid collections are identified. No hydrocephalus. No significant volume loss. Patchy periventricular and deep white matter hypoattenuation is consistent with mild small vessel ischemic changes. No acute osseous or soft tissue abnormality. The mastoid air cells and visualized portions of the paranasal sinuses are well aerated. Cervical spine: There is anatomic alignment of the vertebral bodies and posterior elements. The atlantoaxial and atlantooccipital articulations are intact. Vertebral body heights are maintained. Endplate osteophytes throughout the cervical spine with accompanying mild loss of disc space height at C5-C6, C6-C7 and C7-T1. This leads to at least mild bilateral osseous neural foraminal encroachment at C6-C7 and at least mild bilateral neural foraminal narrowing at C7-T1. No evidence of acute fracture. No prevertebral soft tissue swelling. Visualized portions of the lung apices are unremarkable. The thyroid gland is unremarkable. CT/CT cervical spine wo IV con IMPRESSION: * No acute intracranial findings. * No acute fracture or malalignment of the cervical spine.
[2022-08-10 23:29] VITALS: BP 150/70; PULSE 84; O2SAT 95
[2022-08-10 23:36] VITALS: BMI 25.8
[2022-08-10 23:42] VITALS: BP 110/44; PULSE 83; RESP 14; TEMP 36.6; O2SAT 97
--- NOTE | 2022-08-10 23:59 | ED.ALCOHOL ---
HPI - Alcohol General Chief Complaint: ETOH/Substance Use Stated Complaint: etoh headstrike Time Seen by Provider: 08/10/22 23:39 History of Present Illness HPI narrative: Patient is a 52-year-old male with a history of cardiac spasms secondary to cocaine abuse in the past history of EtOH history of NSTEMI secondary to cocaine use. Presented today with positive ETOH. Patient states he never fell. His called the ambulance on him because he fell and hit his head against a radiator. Unsure what exactly transpired. Patient only admits drinking alcohol. Denies any cocaine today. Has no focal weakness. Has no complaints. He is from home. Denies any chest pain or diaphoresis. No fever no chills no cough no congestion or upper respiratory symptoms. Related Data Home Medications Medication Instructions Recorded Confirmed buprenorphine 8 mg-naloxone 2 mg 1 tab sublingual TID 08/15/20 07/24/22 sublingual tablet albuterol sulfate 90 mcg/actuation 90 mcg inhalation Q4-6H PRN 05/29/22 07/24/22 aerosol inhaler (Ventolin HFA) Shortness Of Breath Or Wheezing fluticasone fur. 200 mcg-umeclid 1 ea inhalation DAILY 07/24/22 07/24/22 62.5 mcg-vilant 25 mcg inhalat.powder (Trelegy Ellipta) multivitamin 1 tab PO DAILY 07/24/22 07/24/22 pantoprazole 40 mg tablet,delayed 40 mg PO DAILY@0630 07/24/22 07/24/22 release Previous Rx's Medication Instructions Recorded hydrochlorothiazide 12.5 mg tablet 12.5 mg PO DAILY #90 tabs 07/08/22 lisinopril 10 mg tablet 10 mg PO DAILY #90 tabs 07/08/22 prucalopride 2 mg tablet 2 mg PO DAILY #90 tabs 07/08/22 (Motegrity) clonazepam 1 mg tablet (Klonopin) 1 mg PO BID PRN Anxiety #60 tabs 07/21/22 zolpidem 10 mg tablet (Ambien) 10 mg PO BEDTIME PRN sleep #30 tabs 07/21/22 atorvastatin 80 mg tablet (Lipitor) 80 mg PO DAILY #30 tabs 07/26/22 ceftriaxone 1 gram solution for 1 g IV Q24H #7 ea 07/26/22 injection doxycycline hyclate 100 mg 100 mg IV Q12H #7 ea 07/26/22 intravenous powder for solution (Doxy-100) enoxaparin 80 mg/0.8 mL 80 mg (0.8 mL) subcut Q12H #8 mL 07/26/22 subcutaneous syringe metoprolol tartrate 50 mg tablet 50 mg PO Q6H #60 tabs 07/26/22 nicotine (polacrilex) 2 mg gum 2 mg buccal Q1H PRN Nicotine 07/26/22 Cravings #60 ea sucralfate 1 gram tablet 1 g PO DAILY #90 tabs 07/30/22 citalopram 20 mg tablet 20 mg PO DAILY #90 tabs 08/07/22 Allergies Allergy/AdvReac Type Severity Reaction Status Date / Time morphine Allergy Severe Anaphylaxis Verified 06/26/22 11:25 acetaminophen [From Tylenol] Allergy Unknown Gastrointestinal Verified 06/26/22 11:25 Upset Review of Systems Review of Systems: Positive history of cocaine use Positive ETOH Positive generalized weakness Denies any bloody stool Denies any recent cocaine use REPLACED BY [facility] Past Medical History Attestation statement: The following information was validated with the patient. Medical History Asthma 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 Mother No problems noted. Social History Social History Household Members: Spouse Housing: Apartment Do you presently have visiting nurse or other home services: No Alcohol intake: current Alcohol intake frequency: does not drink Alcohol type: beer Patient Tobacco Use Status: Current everyday Tobacco user Tobacco use type: Cigarette Cigarette Packs Per Day: 1 Cigarettes Per Day: 20.0 e-Cigarette/Vaping Use: Never Used Second Hand Smoke Exposure: Yes Advance Directives: No Advance Directives Information Provided: Yes service: No Current occupational status: disabled Cognitive needs: No Hearing needs: No Vision needs: No Physical Exam ED Vital Signs: Vital Signs - 24 hr 08/10/22 23:42 Temperature 97.9 F Pulse Rate 83 Respiratory Rate 14 Blood Pressure 110/44 L Pulse Oximetry 97 Oxygen Delivery Method Room Air BMI result Body Mass Index 25.8 Appearance: Alert. Oriented X3. No acute distress. Eyes: Pupils equal, round and reactive to light. ENT: Pharynx normal. Neck: Normal inspection. Neck supple. No lymph nodes noted. No crepitus CVS: Normal heart rate and rhythm. Pulses normal. Normal S1 and S2 Respiratory: No respiratory distress. Breath sounds normal. No Wheezing. No rales Abdomen: Soft and nontender. No rigidity. No distention. good BS x4 Skin: Skin warm and dry. Normal skin color. Normal skin turgor. Extremities: No lower extremity edema. Neurovascular intact to all extremities. No Lacerations. No Rash Neuro: Oriented X 3. No motor deficit. No sensory deficit. Moving all extermities. No slurred speech Medical Decision Making Medical Decision Making MDM Narrative: My interpretation of patient's EKG showed a sinus rhythm heart rate is 70 OH QRS QT within normal limits there is no acute ST segment elevation. Patient did have cocaine induced NSTEMI during his previous visit at the end of June. The troponin got up to approximately 2400. Question as to what exactly transpired today. Patient denies any fall no trauma any syncopal episode. Patient was specifically sent in by after hitting his head against a radiator. Will get CT scan of the head and C-spine as patient is grossly intoxicated. Electrolytes are drawn. Will get troponin. Currently in stable condition. Has no acute distress. Denies any chest pain. He denies any cocaine use today. Patient's alcohol came back at over 300. His troponin is actually negative today. In the setting of a normal EKG less likely to be spasm secondary to cocaine. Patient CT scan of the head and C-spine were both grossly negative for any acute evidence of fracture. No evidence of bleeding. Explained to patient the need for sober individual to take responsibility for him. Differential Diagnosis Differential Diagnoses: The differential diagnosis associated with the presentation includes Cocaine induced NSTEMI, alcohol intoxication, head injury, intracranial bleed, skull fracture, C-spine fracture, C-spine dislocation, Admission/Observation Consideration of admission/observation: Escalation of care including admission/observation considered Lab Data MDM Lab Attestation statement: I reviewed the patient's lab results. 08/11/22 00:01 08/11/22 00:00 Labs: Lab Results 08/11/22 08/11/22 08/11/22 Range/Units 00:00 00:01 00:01 WBC 6.4 (4.8-10.8) X10*3/uL RBC 3.86 L (4.60-5.80) X10*6/uL Hgb 12.5 L (14.0-18.0) g/dl Hct 35.6 L (42.0-52.0) % MCV 92.2 (80.0-98.0) fL MCH 32.4 (27.0-33.0) pg MCHC 35.1 (31.0-36.0) g/dl RDW 13.0 (11.0-16.0) % Plt Count 167 (160-400) X10*3/uL MPV 8.7 L (9.4-12.4) fL Immature Gran % (Auto) 0.2 (0.0-0.4) % Neut % (Auto) 44.5 L (45-73) % Lymph % (Auto) 45.7 H (20-40) % Long % (Auto) 6.9 (2-11) % Eos % (Auto) 2.2 (0-4) % Baso % (Auto) 0.5 (0-2) % Lymph # (Auto) 2.9 (1.2-4.9) X10*3/uL Long # (Auto) 0.4 (0.1-1.2) X10*3/uL Eos # (Auto) 0.1 (0.0-0.4) X10*3/uL Baso # (Auto) 0.0 (0.0-0.2) X10*3/uL Abs Immat Gran (auto) 0.01 (0.00-0.03) X10*3/uL Absolute Neuts (auto) 2.8 (2.0-8.3) x10*3/uL Absolute Nucleated RBC 0.000 (0.0-0.012) X10*3/uL Nucleated RBC % (auto) 0.0 (0.0-0.2) /100WBC Sodium 137 (135-145) mmol/L Potassium 3.7 (3.3-5.1) mmol/L Chloride 100 (96-108) mmol/L Carbon Dioxide 27 (22-29) mmol/L Anion Gap 14 (12-20) BUN 10 (9-16) mg/dL Creatinine 0.68 (0.5-1.4) mg/dL Estim Creat Clear Calc 129.7 Estimated GFR > 60 Random Glucose 143 H (60-115) mg/dL Calcium 8.9 (8.4-10.2) mg/dL Total Bilirubin 0.3 (0.0-1.0) mg/dL AST 46 H (5-37) U/L ALT 32 (0-40) U/L Alkaline Phosphatase 87 (39-117) U/L Troponin I High Sens < 2.7 D (<3.5-35.0) ng/L Total Protein 6.8 (6.5-8.0) g/dL Albumin 4.1 (3.5-5.0) g/dL Ethyl Alcohol 308 H* mg/dL Independent Interpretation I performed an independent interpretation of an: EKG and CT Scan Interpretation: Sinus heart rate is 80 OH QRS QT within normal limits there is no acute ST segment elevation CT head was grossly negative for any acute evidence of bleeding Radiology Impression Discussion of test interpretation with radiology: I have reviewed the radiologist's reading. Medications Administered Generic Name Dose Route Start Last Admin Trade Name Freq PRN Reason Stop Dose Admin Sodium Chloride 1,000 mls @ 999 mls/hr 08/10/22 23:45 08/11/22 00:03 Ns IV 08/11/22 00:45 999 mls/hr .Q1H1M LUCRECIA Administration Discharge Plan Discharge Clinical Impression: Head injury, Alcohol intoxication Patient Disposition: Still a Patient Instructions: Head Injury (ED), Alcohol Intoxication (ED) Prescriptions: No Action zolpidem [Ambien] 10 mg tablet 10 mg PO BEDTIME PRN (Reason: sleep) Qty: 30 5RF clonazepam [Klonopin] 1 mg tablet 1 mg PO BID PRN (Reason: Anxiety) Qty: 60 5RF sucralfate 1 gram tablet 1 g PO DAILY Qty: 90 0RF citalopram 20 mg tablet 20 mg PO DAILY Qty: 90 5RF Trelegy Ellipta 200-62.5-25 mcg blister with device 1 ea inhalation DAILY multivitamin Tablet 1 tab PO DAILY pantoprazole 40 mg tablet,delayed release (DR/EC) 40 mg PO DAILY@0630 Rx Instructions: take one tablet half an hour before breakfast nicotine (polacrilex) 2 mg Gum 2 mg buccal Q1H PRN (Reason: Nicotine Cravings) Qty: 60 0RF ceftriaxone 1 gram Recon Soln 1 g IV Q24H Qty: 7 0RF doxycycline hyclate [Doxy-100] 100 mg Recon Soln 100 mg IV Q12H Qty: 7 0RF metoprolol tartrate 50 mg Tablet 50 mg PO Q6H Qty: 60 0RF Protocol: Hold for SBP/HR < HOLD for SBP < : 90 HOLD for HR < : 60 enoxaparin 80 mg/0.8 mL Syringe 80 mg subcut Q12H Qty: 8 0RF atorvastatin [Lipitor] 80 mg tablet 80 mg PO DAILY Qty: 30 0RF hydrochlorothiazide 12.5 mg tablet 12.5 mg PO DAILY Qty: 90 8RF lisinopril 10 mg tablet 10 mg PO DAILY Qty: 90 8RF Motegrity 2 mg tablet 2 mg PO DAILY Qty: 90 2RF buprenorphine-naloxone 8-2 mg tablet, sublingual 1 tab sublingual TID Patient Comments: TOOK HALF A FILM THIS AM albuterol sulfate [Ventolin HFA] 90 mcg/actuation HFA aerosol inhaler 90 mcg inhalation Q4-6H PRN (Reason: Shortness Of Breath Or Wheezing) Referrals: Physician,Unknown J [Primary Care Provider] - (Please stop drinking alcohol. Please go to detox.)
[2022-08-11] MEDS: 0.9 % Sodium Chloride 1,000 ML 999 ML IV (00:03)
[2022-08-11 00:06] LABS: Basophils Percent Auto 0.5 % (0-2); Eosinophils Absolute Auto 0.1 X10*3/uL (0.0-0.4); Eosinophils Percent Auto 2.2 % (0-4); Hematocrit 35.6 % (42.0-52.0); Hemoglobin 12.5 g/dl (14.0-18.0); Imm Gran Abs Auto 0.01 X10*3/uL (0.00-0.03); Imm Gran Pct Auto 0.2 % (0.0-0.4); Lymphocytes Absolute Auto 2.9 X10*3/uL (1.2-4.9); Lymphocytes Percent Auto 45.7 % (20-40); MANUAL DIFF FLAG NO; Mean Corpuscular HGB Conc 35.1 g/dl (31.0-36.0); Mean Corpuscular Hemoglobin 32.4 pg (27.0-33.0); Mean Corpuscular Volume 92.2 fL (80.0-98.0); Mean Platelet Volume 8.7 fL (9.4-12.4); Monocytes Absolute Auto 0.4 X10*3/uL (0.1-1.2); Monocytes Percent Auto 6.9 % (2-11); Neutrophils Absolute Auto 2.8 x10*3/uL (2.0-8.3); Neutrophils Percent Auto 44.5 % (45-73); Platelet Count 167 X10*3/uL (160-400); Red Blood Count 3.86 X10*6/uL (4.60-5.80); White Blood Count 6.4 X10*3/uL (4.8-10.8)
[2022-08-11 00:21] LABS: Alanine Aminotransferase 32 U/L (0-40); Albumin Level 4.1 g/dL (3.5-5.0); Alkaline Phosphatase 87 U/L (39-117); Anion Gap 14 (12-20); Aspartate Amino Transferase 46 U/L (5-37); Bilirubin Total 0.3 mg/dL (0.0-1.0); Blood Urea Nitrogen 10 mg/dL (9-16); Calcium 8.9 mg/dL (8.4-10.2); Carbon Dioxide 27 mmol/L (22-29); Chloride 100 mmol/L (96-108); Creatinine Clr Calc Pharmacy 129.7; Estimated Glomerular Filt Rate > 60; Ethanol 308 mg/dL; Glucose Random 143 mg/dL (60-115); Potassium 3.7 mmol/L (3.3-5.1); Sodium 137 mmol/L (135-145); Total Protein 6.8 g/dL (6.5-8.0)
[2022-08-11 00:30] LABS: Troponin-I High Sensitivity < 2.7 ng/L (<3.5-35.0)
--- NOTE | 2022-08-11 00:49 | PC.NURSE ---
pt ambulatory to and from bathroom with steady gait
--- NOTE | 2022-08-11 01:01 | PC.NURSE ---
pt niece and great niece here to pick patient up.
== END 2022-08-11 01:03 | disposition home or self-care (01) ==
PROVIDERS: Emergency Provider Emergency Medicine Emergency Medical Services
DX: S09.8XXA Other specified injuries of head, initial encounter (principal); I10 Essential (primary) hypertension; F10.129 Alcohol abuse with intoxication, unspecified; Y90.8 Blood alcohol level of 240 mg/100 ml or more; F19.21 Other psychoactive substance dependence, in remission; Z79.899 Other long term (current) drug therapy
CPT/HCPCS: 36415; 70450; 72125; 80053; 80307; 84484; 85025; 93005; 96360; 99284; 99285

== ENCOUNTER → 2022-08-21 14:47 | Outpatient (BNVA) | payer MEDICARE, MEDICAID, SELFPAY | PROVIDERS: PCP Internal Medicine; Visit Provider Physician Assistant ==

== ENCOUNTER → 2022-09-03 08:39 | Outpatient (BNVA) | payer MEDICARE, MEDICAID, SELFPAY | PROVIDERS: PCP Internal Medicine; Visit Provider Nurse Practitioner Family | DX: Z09 Encounter for follow-up examination after completed treatment for conditions other than malignant neoplasm (principal); I48.92 Unspecified atrial flutter; I25.2 Old myocardial infarction; Z78.9 Other specified health status; Z98.890 Other specified postprocedural states | CPT/HCPCS: 93005; 99212 ==

== ENCOUNTER → 2022-09-09 11:19 | Outpatient (REF) | payer MEDICARE, MEDICAID, SELFPAY ==
--- NOTE | 2022-09-09 11:22 | HM_ITS ---
Conclusion: 1. Patient was monitored for total period of 3 days 2. Baseline was atrial fibrillation with average heart of 110 beats per minute with inadequate rate control 3. No significant pauses noted 4. No patient reported events MTDD
== END ==
LOC: HO.CARD 11:19
PROVIDERS: PCP Internal Medicine; Visit Provider Nurse Practitioner Family
DX: I48.92 Unspecified atrial flutter (principal)
CPT/HCPCS: 93242

== ENCOUNTER → 2022-09-09 11:22 | Outpatient (BNV) | payer MEDICARE, MEDICAID, SELFPAY | PROVIDERS: PCP Internal Medicine; Visit Provider Internal Medicine Cardiovascular Disease | DX: I48.91 Unspecified atrial fibrillation (principal) | CPT/HCPCS: 93244 ==

== ENCOUNTER 2022-09-29 08:54 | Outpatient (AMB) | payer MEDICARE, MEDICAID, SELFPAY ==
--- NOTE | 2022-09-29 09:00 | AM.OFFVISNUR ---
Intake Intake Visit Reasons: EKG Intake Note: Pt here for f/up EKG. Recent new H/O afib. 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 Pt states he gets LAW at times, feelings of SOB, can feel heart racing on and off w mild lightheadedness. Denies CP, numbness or tingling. Currently feels okay. EKG reviewed by Jennifer Cook NP and left on her desk for signature. Pt cleared to leave office. He was on s/s of when to come to ED. Office Procedures EKG 61569-[id number], Complete Coding Level of Care Code Est Pt Level 1 (20421) Diagnoses CPT Codes EKG - CPT: 95872-[id number], Complete ([id number]) Time Spent (min) 25 Comment EKG, med reconciliation, Afib/medication education Assessment & Plan Assessment & Plan Medications: Discontinued pantoprazole take one tablet half an hour before breakfast 40 mg PO DAILY 90 tabs 3RF K21.9 - Gastro-esophageal reflux disease without esophagitis tadalafil 5 mg PO DAILY 90 days 90 tabs 0RF sexual activity E29.1 - Testicular hypofunction
== END 2022-09-29 10:22 | disposition home or self-care (01) ==
PROVIDERS: PCP Internal Medicine; Visit Provider Internal Medicine
DX: I48.92 Unspecified atrial flutter (principal); R94.31 Abnormal electrocardiogram [ECG] [EKG]
CPT/HCPCS: 93010

== ENCOUNTER → 2022-09-29 08:54 | Outpatient (BNVA) | payer MEDICARE, MEDICAID, SELFPAY | PROVIDERS: PCP Internal Medicine; Visit Provider Internal Medicine | DX: K21.9 Gastro-esophageal reflux disease without esophagitis (principal); E29.1 Testicular hypofunction | CPT/HCPCS: 93005 ==

== ENCOUNTER 2022-10-07 10:45 | Outpatient (REF) | payer MEDICARE, MEDICAID, SELFPAY ==
[2022-10-12 14:09] LABS: Testosterone, Free 19.4 pg/mL (35.0-155.0); Testosterone, Total 359 ng/dL (250-1100)
== END 2022-10-07 10:46 | disposition home or self-care (01) ==
LOC: HO.HMGCLDS 10:45
PROVIDERS: PCP Internal Medicine; Visit Provider Urology
DX: E29.1 Testicular hypofunction (principal)
CPT/HCPCS: 36415; 84402; 84403

== ENCOUNTER 2022-10-22 14:08 | Outpatient (AMB) | payer MEDICARE, MEDICAID, SELFPAY ==
--- NOTE | 2022-10-22 14:08 | A.OFFVIS_ITS ---
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: No Allergies morphine Allergy (Severe, Verified 10/22/22 14:17) Anaphylaxis acetaminophen [From Tylenol] Allergy (Unknown, Verified 10/22/22 14:17) Gastrointestinal Upset Medication List - Last Reconciled 10/22/22 by CHEMA Bowen- albuterol sulfate 90 mcg/actuation (Ventolin HFA) 90 mcg inhalation Q4-6H PRN apixaban (Eliquis) 5 mg PO BID 30 days aspirin (Adult Aspirin Regimen) 81 mg PO DAILY atorvastatin 20 mg PO BEDTIME buprenorphine-naloxone 8-2 mg 1 tab sublingual TID citalopram 20 mg PO DAILY clonazepam (Klonopin) 1 mg PO BID PRN bnqxwyskjkm-kywfdexxe-vhwirhqb 200-62.5-25 mcg (Trelegy Ellipta) 1 ea inhalation DAILY hydrochlorothiazide 12.5 mg PO DAILY metoprolol tartrate 100 mg PO BID 90 days multivitamin 1 tab PO DAILY pantoprazole 40 mg PO DAILY@0630 prucalopride (Motegrity) 2 mg PO DAILY sucralfate 1 g PO DAILY zolpidem (Ambien) 10 mg PO BEDTIME PRN HPI HPI Comments History of Present Illness Details Nikko is a pleasant 52 [address] male patient Dr. Olson. He has a past medical history of substance abuse, alcohol use, hypertension, hyperlipidemia, NSTEMI, and atrial fibrillation. He is being followed up on today via telehealth for hypogonadism, lower urinary tract symptoms, and erectile dysfunction. When asked he reports to be following up with cardiology regarding history of [place] in most recently atrial fibrillation. He discusses he recent hospitalization at which time he was diagnosed with pneumonia and NSTEMI. He reports to have come off of Replaced By [facility] as Cardiology recommended patient to come off at this time and will reasses. Recent testosterone results reviewed with the patient today. 10/21-- Testosterone 360. In discussion with the patient today he reports feeling overwhelmed with ongoing health issues he has been experiencing with his breathing and his heart. He otherwise denies any urinary issues or concerns at this time. He denies urinary urgency, urinary frequency, incontinence, nocturia, hematuria, dysuria, foul smelling urine, changes to urinary stream, flank pain, fever, and or chills. He is happy with his current voiding parameters. He does report low libido and at times experiencing adequate erections for penetration. Discussed at length importance of sleep, healthy eating habits, and exercising. Discussed at length importance of limiting alcohol and avoiding recreational drugs to assist with low libido, ED, and for overall health and well-being. He otherwise offers no other issues or concerns at this time. 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 Mother No problems noted. Social History Household Members: Spouse Housing: Apartment Do you presently have visiting nurse or other home services: No Alcohol intake: current Alcohol intake frequency: does not drink Alcohol type: beer Patient Tobacco Use Status: Current everyday Tobacco user Tobacco use type: Cigarette Cigarette Packs Per Day: 1 Cigarettes Per Day: 20.0 e-Cigarette/Vaping Use: Never Used Second Hand Smoke Exposure: Yes service: No Current occupational status: disabled Cognitive needs: No Hearing needs: No Vision needs: No Review of Systems Const Reports as per HPI Eyes Reports no additional complaints ENT Reports no additional complaints Card Reports as per HPI Resp Reports as per HPI GI Reports no additional complaints Reports as per HPI Musc Reports no additional complaints Neuro Reports no additional complaints Psych Reports as per HPI Endo Reports no additional complaints Physical Exam Const General: cooperative Orientation/consciousness: patient oriented x3 Resp Effort & Inspection: able to speak in complete sentences Neuro General: patient oriented x3 Psych Speech and movement: Clear speech present Attitude: cooperative Thought content: Normal thought content present Insight: Fair insight present (Psych) Judgement: Fair judgement present (Psych) Assessment & Plan Assessment & Plan (1) Erectile dysfunction: Code(s): N52.9 - Male erectile dysfunction, unspecified (2) Hypogonadism in male: Code(s): E29.1 - Testicular hypofunction Plan Recent testosterone results reviewed with the patient today; as noted above. Discussed at length importance of limiting alcohol as well as illicit drug use for improvement in erectile dysfunction, low libido, as well as for overall health and well-being. Discussed, educated, and stressed the importance of healthy eating habits, adequate sleep, and exercising for improvement in erectile dysfunction, low libido, and overall health and well-being. Patient denies any bothersome urinary issues or concerns at this time. Will await restart of low-dose Cialis as recommended by Cardiology per patient. Testosterone in 6 months Follow-up in 6 months with lab to be completed prior; or sooner with any issues, concerns, and or questions. Orders: Orders Testosterone, Free/Total 10/07/22 E29.1 - Testicular hypofunction Medications: Discontinued pantoprazole take one tablet half an hour before breakfast 40 mg PO DAILY 90 tabs 3RF K21.9 - Gastro-esophageal reflux disease without esophagitis tadalafil 5 mg PO DAILY 90 days 90 tabs 0RF sexual activity E29.1 - Testicular hypofunction Patient Instructions: The patient had an opportunity to ask questions regarding the treatment plan. All questions were answered. Physical exam, labs, and imaging were discussed and reviewed in detail. As well as risks, benefits, and discussion of treatment choices. No major barriers to understanding were identified. The patient expressed understanding and agreement with the above treatment plan. The patient was made aware they should contact our office by phone for worsening of their current condition, the appearance of new symptoms, or with any questions or concerns. Compliance is encouraged with any medications and follow up testing that is ordered. It is a privilege to be allowed the opportunity to participate in? your urological care.? Again, if you have any questions or concerns If you have any questions or concerns please do not hesitate to contact me. The office is [phone]. This note is constructed using voice recognition software. While every effort has been made to ensure accuracy steel estimator errors may have been included. Yours sincerely, CHEMA Bowen- Telehealth Telehealth Location of provider rendering services: practice address Location of patient: address on file Patient Identification confirmed using: Name, : Yes Telehealth method: voice only Patient verbally consented to treatment: Yes Patient verbally consented to billing insurance company: Yes Patient informed of any privacy concerns related to visit: Yes Minutes spent on Phone/Video with Pt.: 15 Coding Level of Care Code Tele Est Pt Level 3 (88321) Diagnoses Erectile dysfunction N52.9 Hypogonadism in male E29.1
== END 2022-10-22 14:36 | disposition home or self-care (01) ==
LOC: HO.HUSH 14:08
PROVIDERS: PCP Internal Medicine; Visit Provider Nurse Practitioner Family
DX: N52.9 Male erectile dysfunction, unspecified (principal); E29.1 Testicular hypofunction
CPT/HCPCS: 99442

== ENCOUNTER → 2022-10-22 14:08 | Outpatient (BNVA) | payer MEDICARE, MEDICAID, SELFPAY | PROVIDERS: PCP Internal Medicine; Visit Provider Nurse Practitioner Family ==

== ENCOUNTER 2022-10-26 08:42 | Outpatient (AMB) | payer MEDICARE, MEDICAID, SELFPAY ==
--- NOTE | 2022-10-26 08:54 | A.OFFVIS_ITS ---
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 Will work with the nurse to get a PA.? Patient will call us if he will not get the medication (2) GERD (gastroesophageal reflux disease): ?Code(s): K21.9 - Gastro-esophageal reflux disease without esophagitis ?Qualifiers: ?Esophagitis presence:?with esophagitis??Esophagitis bleeding:?without hemorrhage? Qualified Code(s):?K21.00 - Gastro-esophageal reflux disease with esophagitis, without bleeding ?Plan: Diagnosed with Tariq's on upper endoscopy.? Patient reports pantoprazole works.? Patient states that he takes it every day.? Patient was encouraged to take this medication every day.? Avoid dietary triggers and late night snacking.? Staying upright for minimum 3 hours after meals discussed with samir houston. (3) Tariq's esophagus determined by biopsy: ?Code(s): K22.70 - Tariq's esophagus without dysplasia ?Plan: Diagnosed with Tariq's esophagus on upper endoscopy.? Continue PPI treatment.? Avoid dietary triggers as mentioned above. (4) Tubular adenoma: ?Code(s): D36.9 - Benign neoplasm, unspecified site ?Plan: Patient diagnosed with tubular adenoma without high-grade dysplasia or carcinoma.? He will return for colonoscopy in 3 years, sooner if clinically necessary..? Suboptimal prep to left side of his colon. (5) Status post colonoscopy: ?Code(s): Z98.890 - Other specified postprocedural states ?Plan: Patient denies any ill effects from the prep, anesthesia or procedure itself.? Tubular adenoma found on colonoscopy without high-grade dysplasia or carcinoma.? Upper endoscopy showed Tariq's mild gastritis, esophagitis and duodenitis.? I will see patient in 5 weeks to follow-up on constipation.? Patient will call me sooner if he will be having any GI concerning symptoms.? He is agreeable to this plan and verbalizes understanding of instructions.? He was given the opportunity to ask questions and all questions answered.? TODAY'S VISIT Patient is here for requested visit. Patient reports to have abdominal discomfort. Constipation. No bowel movement sometimes for 5-6 days. Patient reports that he takes Motegrity every morning and only way he is able to go he has a milk of magnesia. Patient states that he took milk of magnesia to days ago and had a bowel movement yesterday. He does not feel like he empties comp letely continues to have a periumbilical pain. Patient feels like he has a hernia or something bulging out specially when he is lying down. Patient was on vacation last week and states that he has not moved his bowels for the whole week. Patient continues to smoke cigarettes and admits to drinking 6-12 beers daily. Patient was admitted with NSTEMI and AFib in June. Patient is on Eliquis currently. He is reporting shortness of breath and chest tightness, has appointment with Cardiology on . Patient also reports coughing, afebrile. Prior to admission patient admitted to using cocaine and drinking beer. Patient denies any nausea or vomiting. Denies melena, hematochezia, unintentional weight loss or ribbon like stools. 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 Mother No problems noted. Social History Household Members: Spouse Housing: Apartment Do you presently have visiting nurse or other home services: No Alcohol intake: current Alcohol intake frequency: does not drink Alcohol type: beer Patient Tobacco Use Status: Current everyday Tobacco user Tobacco use type: Cigarette Cigarette Packs Per Day: 1 Cigarettes Per Day: 20.0 e-Cigarette/Vaping Use: Never Used Second Hand Smoke Exposure: Yes service: No Current occupational status: disabled Cognitive needs: No Hearing needs: No Vision needs: No Review of Systems Const Denies weight gain and Denies weight loss ENT Reports no additional complaints, Denies dysphagia and Denies odynophagia Card Reports no additional complaints Resp Reports no additional complaints GI Denies abdominal pain, Denies belching, Denies melena, Denies bloating, Denies change in bowel habits, Denies dysphagia, Denies excessive flatus, Denies dyspepsia, Denies heartburn, Denies diarrhea, Denies loose stools, Denies nausea, Denies odynophagia and Denies vomiting Reports no additional complaints Musc Reports no additional complaints Neuro Reports no additional complaints Psych Reports no additional complaints Endo Reports no additional complaints Physical Exam Vital Signs: Last Vital Signs Pulse 93 10/26/22 08:56 BP 122/71 10/26/22 08:56 BMI result Body Mass Index 26.9 Const General: healthy appearing, no acute distress and well developed Nutritional Appearance: well nourished Orientation/consciousness: patient oriented x3 HEENT Head: Yes normal to inspection, Yes normocephalic and Yes atraumatic Face and sinus: Yes normal facial exam Mouth: Normal oral and palatal mucosa present Throat: Yes posterior oropharynx normal, Yes tonsils normal and Yes uvula midline Eyes General: appearance normal, both eyes and all related structures Neck Neck: Yes normal visual inspection, Yes full ROM and Yes trachea midline Thyroid: Thyroid normal Resp Effort & Inspection: normal respiratory effort, able to speak in complete sentences, no tracheal deviation and symmetric chest movement Auscultation: clear to auscultation bilaterally Cardio Rate: regular rate Rhythm: other (irregular) Heart sounds: S1 normal heart sound present and S2 normal heart sound present GI Inspection: Yes normal to inspection and No distended Palpation (GI): Soft to palpation, not firm, nontender and No hepatosplenomegaly present Auscultation: normal bowel sounds General: Yes no CVA tenderness Back/Spine/Pelvis Back: no CVA tenderness Skin General skin exam: elasticity normal, turgor normal and dry skin Neuro General: patient oriented x3 Psych Appearance: grossly normal Mental Status: mental status grossly normal Speech and movement: Normal speech and movement present Assessment & Plan Assessment & Plan (1) Alcohol use: Code(s): Z78.9 - Other specified health status Plan: Patient admits to using alcohol. Patient admits to drinking several beers last night. Discussed with patient abstaining from alcohol. (2) Umbilical hernia: Code(s): K42.9 - Umbilical hernia without obstruction or gangrene Qualifiers: Obstruction and gangrene presence: with obstruction but without gangrene Qualified Code(s): K42.0 - Umbilical hernia with obstruction, without gangrene Plan: Unable to palpate actual hernia, rectus abdominus most likely. Will refer patient to surgery (3) GERD (gastroesophageal reflux disease): Code(s): K21.9 - Gastro-esophageal reflux disease without esophagitis Qualifiers: Esophagitis bleeding: without hemorrhage Esophagitis presence: with esophagitis Qualified Code(s): K21.00 - Gastro-esophageal reflux disease with esophagitis, without bleeding Plan: Continue pantoprazole daily. Continues avoiding dietary triggers. Discussed with patient avoiding alcohol (4) Chronic idiopathic constipation: Code(s): K59.04 - Chronic idiopathic constipation Plan: Continue Motegrity. Patient was encouraged to increase fluid intake and activity to promote better bowel motility. Patient will also take Dulcolax 2 tablets every evening. Encouraged to take MiraLax daily. Patient was encouraged to go to ER, increased edema in bilateral lower extremities. Patient does report to have chest pressure and shortness of breath with activity. Patient refuses. Patient states he has an appointment with his office manager on . He will come back in 3 weeks for follow-up, sooner on as needed basis. Patient is agreeable to this plan and verbalizes understanding of instructions. He was given the opportunity to ask questions and all questions answered. Thank you for allowing me to participate in his care Orders: Referrals General Surgery Referral K42.9 - Umbilical hernia without obstruction or gangrene Medications: New bisacodyl (Dulcolax (bisacodyl)) 10 mg (2 x 5 mg) PO BEDTIME 180 tabs 4RF polyethylene glycol 3350 (Miralax) 17 grams PO DAILY 510 grams 2RF Discontinued pantoprazole take one tablet half an hour before breakfast 40 mg PO DAILY 90 tabs 3RF K21.9 - Gastro-esophageal reflux disease without esophagitis tadalafil 5 mg PO DAILY 90 days 90 tabs 0RF sexual activity E29.1 - Testicular hypofunction Coding Level of Care Code Est Pt Level 4 (26050) Diagnoses Alcohol use Z78.9 Umbilical hernia K42.0 Obstruction and gangrene presence: with obstruction but without gangrene GERD (gastroesophageal reflux disease) K21.00 Esophagitis bleeding: without hemorrhage Esophagitis presence: with esophagitis Chronic idiopathic constipation K59.04 Time Spent (min) 40 Comment 25 minutes spent with patient and additional 15 minutes spent reviewing his records
[2022-10-26 08:56] VITALS: BP 122/71; PULSE 93; BMI 26.9
== END 2022-10-26 10:02 | disposition home or self-care (01) ==
PROVIDERS: PCP Internal Medicine; Visit Provider Nurse Practitioner Family
DX: Z78.9 Other specified health status (principal); K42.0 Umbilical hernia with obstruction, without gangrene; K21.00 Gastro-esophageal reflux disease with esophagitis, without bleeding; K59.04 Chronic idiopathic constipation
CPT/HCPCS: 99214

== ENCOUNTER → 2022-10-26 08:42 | Outpatient (BNVA) | payer MEDICARE, MEDICAID, SELFPAY | PROVIDERS: PCP Internal Medicine; Visit Provider Nurse Practitioner Family | DX: K42.0 Umbilical hernia with obstruction, without gangrene (principal); K21.00 Gastro-esophageal reflux disease with esophagitis, without bleeding; K59.04 Chronic idiopathic constipation; F17.210 Nicotine dependence, cigarettes, uncomplicated; Z78.9 Other specified health status | CPT/HCPCS: 99212 ==

== ENCOUNTER 2022-11-05 14:37 | Outpatient (AMB) | payer MEDICARE, MEDICAID, SELFPAY ==
[2022-11-05 14:40] VITALS: BP 138/92; PULSE 128; BMI 25.9
--- NOTE | 2022-11-05 14:40 | MHC.OFFVIS ---
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: No Allergies morphine Allergy (Severe, Verified 11/05/22 14:47) Anaphylaxis acetaminophen [From Tylenol] Allergy (Unknown, Verified 11/05/22 14:47) Gastrointestinal Upset Medication List - Last Reconciled 11/05/22 by Jennifer Nieves [employer] MANAGER[employer] albuterol sulfate 90 mcg/actuation (Ventolin HFA) 90 mcg inhalation Q4-6H PRN apixaban (Eliquis) 5 mg PO BID 30 days aspirin (Adult Aspirin Regimen) 81 mg PO DAILY atorvastatin 20 mg PO BEDTIME bisacodyl (Dulcolax (bisacodyl)) 10 mg (2 x 5 mg) PO BEDTIME buprenorphine-naloxone 8-2 mg 1 tab sublingual TID citalopram 20 mg PO DAILY clonazepam (Klonopin) 1 mg PO BID PRN [id number] 200-62.5-25 mcg (Trelegy Ellipta) 1 ea inhalation DAILY hydrochlorothiazide 12.5 mg PO DAILY metoprolol tartrate 100 mg PO BID 90 days multivitamin 1 tab PO DAILY pantoprazole 40 mg PO DAILY@0630 polyethylene glycol 3350 (Miralax) 17 grams PO DAILY prucalopride (Motegrity) 2 mg PO DAILY sucralfate 1 g PO DAILY zolpidem (Ambien) 10 mg PO BEDTIME PRN HPI HS PT C/O SOB + EDEMA HPI Details Nikko is a 52-year-old male with past medical history of substance abuse, alcohol use, hypertension, hyperlipidemia who was recently admitted to [facility] with shortness of breath and found to have pneumonia, atrial flutter and elevated troponins consistent with NSTEMI. He was treated for rate control and converted back to sinus rhythm. He initially did not require anticoagulation. On follow-up he had EKG and Holter monitor showing atrial flutter/ atrial fibrillation with RVR and was put on Eliquis for anticoagulation. His metoprolol dose was increased. Today he reports that when he checks his heart rate at home it is consistently in the 120s. He notices shortness of breath with activity such as walking or stair climbing. He denies chest discomfort at rest or with activity. He can feel some heart palpitations. No dizziness, presyncope, syncope, falls. No PND, orthopnea or edema. He tells me his legs had been swollen but now they are not. He is hoping to have injections in his neck in the near future due to chronic pain. He reports compliance with all his medication and shows me his list which has the Eliquis and metoprolol 100 mg b.i.d. listed. He has also been taking aspirin 81 mg daily. He shows me bruises on his arm that occurred with minor contact of his extremity. No other bleeding issues reported [facility] Medical History Tubular adenoma Tariq's 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 Mother Chronic a-fib Sister Chronic a-fib Social History Household Members: Spouse Housing: Apartment Do you presently have visiting nurse or other home services: No Alcohol intake: current Alcohol intake frequency: does not drink Alcohol type: beer Patient Tobacco Use Status: Current everyday Tobacco user Tobacco use type: Cigarette Cigarette Packs Per Day: 1 Cigarettes Per Day: 20.0 e-Cigarette/Vaping Use: Never Used Second Hand Smoke Exposure: Yes service: No Current occupational status: disabled Cognitive needs: No Hearing needs: No Vision needs: No Review of Systems Const All systems reviewed & are unremarkable except as noted in HPI and below ENT Denies dizziness Card Denies chest pain, Denies chest pain at rest, Denies chest pain with activity, Reports rapid heart rate, Denies pedal edema, Denies edema, Denies leg edema, Denies lightheadedness, Reports palpitations, Denies dyspnea, Reports dyspnea on exertion and Denies orthopnea Resp Denies cough, Denies dyspnea and Reports dyspnea on exertion GI Denies hematochezia and Denies change in stool character Musc Denies abnormal gait, Reports limited range of motion, Reports muscle cramps, Denies muscle weakness, Denies numbness, Denies radiating pain into limb, Denies stiffness and Denies tingling Neuro Denies abnormal gait, Denies dizziness, Denies numbness and Denies tingling Endo Reports palpitations Physical Exam Vital Signs: Last Vital Signs Pulse 128 H 11/05/22 14:40 BP 138/92 H 11/05/22 14:40 BMI result Body Mass Index 25.9 Const General: cooperative, healthy appearing, comfortable and no acute distress Orientation/consciousness: patient oriented x3 Neck Neck: Yes normal visual inspection Resp Effort & Inspection: normal respiratory effort Auscultation: clear to auscultation bilaterally, no crackles, no rales, no rhonchi and no wheezes Cardio Jugular venous distension: no JVD Rate: tachycardic Rhythm: regular rhythm Heart sounds: S1 normal heart sound present, S2 normal heart sound present, no gallops, no murmurs and no rubs Neuro General: patient oriented x3 Extrem General: Yes normal to inspection and No no pedal edema Psych Appearance: grossly normal Mental Status: mental status grossly normal Speech and movement: Normal speech and movement present Office Procedures EKG Details: Today, read by me, atrial flutter, incomplete left bundle branch block, nonspecific ST and T-wave abnormality, rate 125, QTC 424 millisecond [id number], Complete Assessment & Plan Assessment & Plan (1) Atrial flutter: Code(s): I48.92 - Unspecified atrial flutter Qualifiers: Atrial flutter type: typical Qualified Code(s): I48.3 - Typical atrial flutter Plan: [place] [facility] [place] new finding of atrial flutter, pneumonia, secondary NSTEMI. He was treated with meds for heart rate control and converted back to normal sinus rhythm. Chads Vasc score of 1 with hypertension. He did not initially require anticoagulation. He does use alcohol routinely. Echocardiogram done 07/24/2022 showed EF greater than 50%, possible basal inferior and inferior lateral hypokinesis. He did undergo cardiac catheterization on 07/28/2022 showing only minimal irregularities in the LAD. On follow-up visit he was noted to have atrial flutter, heart rate 129. He had not been taking metoprolol and it was restarted at 50 mg b.i.d.. A Holter monitor was done on 09/09/2022 showing atrial fibrillation with average heart rate 110. His metoprolol dose was increased to 100 mg b.i.d. and Eliquis 5 mg b.i.d. was started on 09/21/2022. Today he reports shortness of breath with activities such as walking and stair climbing. He tells me he did have leg swelling but it has since gone away. He is scheduled for cardioversion next week with Dr. Forman. He says he has not missed any doses of Eliquis. He has also been taking aspirin 81 mg daily which I will stop. Informed to not miss any doses of Eliquis due to risk of stroke, clot formation with AFib. EKG done today showing atrial flutter, rate 125. Will add diltiazem CD 180 mg daily for heart rate control. Instructed to start this today. Cardiology follow-up 3-4 weeks after cardioversion, sooner if needed. Emergency care if needed for symptoms. (2) NSTEMI (non-ST elevated myocardial infarction): Code(s): I21.4 - Non-ST elevation (NSTEMI) myocardial infarction Plan: Troponin elevation at time of hospital admission for pneumonia and atrial flutter with RVR. Met criteria for secondary NSTEMI. Echo showed possible wall motion abnormality and he did undergo cardiac catheterization showing no significant CAD. Continue atorvastatin and metoprolol. (3) S/P cardiac cath: Comment: 07/28/22 LM, LCx, RCA normal, LAD minimal irregularities Code(s): Z98.890 - Other specified postprocedural states (4) Alcohol use: Code(s): Z78.9 - Other specified health status Coding Level of Care Code Est Pt Level 4 (42140) Diagnoses Typical atrial flutter I48.3 Atrial flutter type: typical NSTEMI (non-ST elevated myocardial infarction) I21.4 S/P cardiac cath Z98.890 Alcohol use Z78.9 CPT Codes EKG - CPT: [id number], Complete ([id number]) Time Spent (min) 26 Comment chart review, document, interview, assess
== END 2022-11-05 15:29 | disposition home or self-care (01) ==
PROVIDERS: PCP Internal Medicine; Referring Provider Internal Medicine; Visit Provider Nurse Practitioner Family
DX: I48.3 Typical atrial flutter (principal)
CPT/HCPCS: 93010; 99214

== ENCOUNTER → 2022-11-05 14:37 | Outpatient (BNVA) | payer MEDICARE, MEDICAID, SELFPAY | PROVIDERS: PCP Internal Medicine; Referring Provider Internal Medicine; Visit Provider Nurse Practitioner Family | DX: I48.3 Typical atrial flutter (principal); I21.4 Non-ST elevation (NSTEMI) myocardial infarction; Z78.9 Other specified health status; Z98.890 Other specified postprocedural states | CPT/HCPCS: 93005; 99212 ==

== ENCOUNTER 2022-11-12 08:47 | Day surgery (SDC) | payer MEDICARE, MEDICAID, SELFPAY ==
[2022-11-09 13:06] VITALS: BMI 26.0
--- NOTE | 2022-11-11 10:13 | HO.ANESPROP2 ---
Documented by User: Cassidy Hunter NP 11/11/22 10:20 HPI - Anesthesia Eval Consult details Narrative: 52yo M for Cardioversion Eliquis for afib Suboxone daily ETOH abuse PMFSH Active Problems Active Problems: All Active Problems (Updated 11/06/22 @ 11:13 by Jennifer Nieves NP-C) Hospital discharge follow-up (Acute) Alcohol use (Acute) Atrial flutter (Acute) Physical exam (Acute) Cocaine abuse (Acute) CAP (community acquired pneumonia) (Acute) Cervical spondylosis (Acute) Erectile dysfunction (Acute) Cervical radiculopathy (Acute) Low back pain (Acute) Neck pain (Acute) Lower thoracic back pain (Acute) Urinary hesitancy (Acute) Hypogonadism in male (Acute) Urinary frequency (Acute) Medicare annual wellness visit, subsequent (Acute) Encounter for screening for malignant neoplasm of colon (Acute) Prostate cancer screening (Acute) Current smoker (Acute) Hyperglycemia (Acute) Depression (Acute) Substance abuse in family (Acute) Asthma (Acute) Hypertension (Acute) S/P cardiac cath (Acute) Tubular adenoma (Acute) Tariq's esophagus determined by biopsy (Acute) GERD (gastroesophageal reflux disease) (Acute) Chronic idiopathic constipation (Acute) Obesity (Acute) Hyperlipidemia (Acute) Peripheral neuropathy (Acute) Hypertension (Acute) Lower back pain (Acute) Past Medical History Medical History Tubular adenoma Tariq's esophagus determined by biopsy GERD (gastroesophageal reflux disease) Chronic idiopathic constipation Hx of opioid abuse Obesity Hyperlipidemia Asthma Peripheral neuropathy Hypertension Lower back pain Family History Family History Father No problems noted. Mother Chronic a-fib Sister Chronic a-fib Family history of problems with anesthesia: No Surgical History Surgical History S/P cardiac cath Hx of colonoscopy History of esophagogastroduodenoscopy (EGD) History of back surgery History of Problems with Anesthesia: No Social History Social History Household Members: Spouse Housing: Apartment Do you presently have visiting nurse or other home services: No Alcohol intake: current Alcohol intake frequency: does not drink Alcohol type: beer Patient Tobacco Use Status: Current everyday Tobacco user Tobacco use type: Cigarette Cigarette Packs Per Day: 0.5 Cigarettes Per Day: 10.0 e-Cigarette/Vaping Use: Never Used Second Hand Smoke Exposure: Yes Use of substances other than those prescribed or required for medical reasons: No Are you DNR?: No Advance Directives: No Advance Directives Information Provided: Yes service: No Current occupational status: disabled Cognitive needs: No Hearing needs: No Vision needs: No Meds Allergies Allergy/AdvReac Type Severity Reaction Status Date / Time morphine Allergy Severe Anaphylaxis Verified 11/05/22 14:47 acetaminophen [From Tylenol] Allergy Intermediate Gastrointestinal Verified 11/09/22 13:02 Upset Home Medications Medication Instructions Recorded Confirmed Last Taken Type buprenorphine 8 mg-naloxone 2 mg 1 tab sublingual TID 08/15/20 11/09/22 11/12/22 07:30 History sublingual tablet albuterol sulfate 90 mcg/actuation 90 mcg inhalation Q4-6H PRN 05/29/22 11/09/22 11/12/22 07:30 History aerosol inhaler (Ventolin HFA) Shortness Of Breath Or Wheezing fluticasone fur. 200 mcg-umeclid 1 ea inhalation DAILY 07/24/22 11/09/22 11/12/22 07:30 History 62.5 mcg-vilant 25 mcg inhalat.powder (Trelegy Ellipta) multivitamin 1 tab PO DAILY 07/24/22 11/09/22 07/23/22 History pantoprazole 40 mg tablet,delayed 40 mg PO DAILY@0630 07/24/22 11/09/22 11/12/22 07:30 History release Exam Exam Date and Time: November 11, 2022 1013 Height,Weight and Vital Signs: Height 5 ft 10 in Weight 82.1 kg Pertinent Lab Results Pertinent Lab Results: Laboratory Tests 08/11/22 08/11/22 00:00 00:01 WBC 6.4 Hgb 12.5 L Hct 35.6 L Plt Count 167 Sodium 137 Potassium 3.7 Chloride 100 Carbon Dioxide 27 BUN 10 Creatinine 0.68 Narrative Narrative: EKG 10/2022 atrial flutter, incomplete left bundle branch block, nonspecific ST and T-wave abnormality, rate 125, QTC 424 millisecond Holter 08/2022 Conclusion: 1. Patient was monitored for total period of 3 days 2. Baseline was atrial fibrillation with average heart of 110 beats per minute with inadequate rate control 3. No significant pauses noted 4. No patient reported events ECHO Conclusions: - Due to tachycardia difficult to assess LVEF, but suspect >50%. - Possible basal inferior/inferolateral hypokinesis. - No obvious valvular pathology seen on this study. cardiac catheterization on 07/28/2022 showing only minimal irregularities in the LAD Assessment and Plan Assessment Anesthesia Assessment: Chart Reviewed Final Anesthetic Review Family History of Problems with Anesthesia: No History of Problems with Anesthesia: No Documented by User: Rowan Rosales MD 11/12/22 09:43 HPI - Anesthesia Eval Consult details Narrative: 52yo M for Cardioversion Eliquis for afib Suboxone daily ETOH abuse Nikko is a 52-year-old male with past medical history of substance abuse, alcohol use, hypertension, hyperlipidemia coccain induced chest pains,and history of Aflutter PMFSH Past Medical History Medical History Tubular adenoma Tariq's esophagus determined by biopsy GERD (gastroesophageal reflux disease) Chronic idiopathic constipation Hx of opioid abuse Obesity Hyperlipidemia Asthma Peripheral neuropathy Hypertension Lower back pain Family History Family History Father No problems noted. Mother Chronic a-fib Sister Chronic a-fib Surgical History Surgical History S/P cardiac cath Hx of colonoscopy History of esophagogastroduodenoscopy (EGD) History of back surgery Social History Social History Household Members: Spouse Housing: Apartment Do you presently have visiting nurse or other home services: No Alcohol intake: current Alcohol intake frequency: does not drink Alcohol type: beer Patient Tobacco Use Status: Current everyday Tobacco user Tobacco use type: Cigarette Cigarette Packs Per Day: 0.5 Cigarettes Per Day: 10.0 e-Cigarette/Vaping Use: Never Used Second Hand Smoke Exposure: Yes Use of substances other than those prescribed or required for medical reasons: No Are you DNR?: No Advance Directives: No Advance Directives Information Provided: Yes service: No Current occupational status: disabled Cognitive needs: No Hearing needs: No Vision needs: No Meds Allergies Allergy/AdvReac Type Severity Reaction Status Date / Time morphine Allergy Severe Anaphylaxis Verified 11/05/22 14:47 acetaminophen [From Tylenol] Allergy Intermediate Gastrointestinal Verified 11/09/22 13:02 Upset Home Medications Medication Instructions Recorded Confirmed Last Taken Type buprenorphine 8 mg-naloxone 2 mg 1 tab sublingual TID 08/15/20 11/09/22 11/12/22 07:30 History sublingual tablet albuterol sulfate 90 mcg/actuation 90 mcg inhalation Q4-6H PRN 05/29/22 11/09/22 11/12/22 07:30 History aerosol inhaler (Ventolin HFA) Shortness Of Breath Or Wheezing fluticasone fur. 200 mcg-umeclid 1 ea inhalation DAILY 07/24/22 11/09/22 11/12/22 07:30 History 62.5 mcg-vilant 25 mcg inhalat.powder (Trelegy Ellipta) multivitamin 1 tab PO DAILY 07/24/22 11/09/22 07/23/22 History pantoprazole 40 mg tablet,delayed 40 mg PO DAILY@0630 07/24/22 11/09/22 11/12/22 07:30 History release Exam Airway Mallampati Class: II TM Dist: >3cm Neck ROM: Full Heart: AF Lungs: cta Assessment and Plan Assessment Anesthesia Assessment: Anesthesia Plan Discussed and Chart Reviewed Final Anesthetic Review NPO: Yes ASA Class: III Final Preanesthetic Review: No Changes in Pt Med Stat, Meds/Allgs Chart Reviewed, Consent Obtained/Reviewed and Anes Risks/Benef Reviewed Patient Risk: Intermediate Procedure Risk: Low Anesthetic Plan Anesthetic Plan: MAC: Disposition: Standard PACU
[2022-11-12 09:42] VITALS: BP 158/84; PULSE 96; RESP 16; TEMP 36.8; O2SAT 96
--- NOTE | 2022-11-12 09:52 | ECG_ITS ---
Test Reason : question rhythm pre op Blood Pressure : / mmHG Vent. Rate : 101 BPM Atrial Rate : 256 BPM P-R Int : 000 ms QRS Dur : 088 ms QT Int : 332 ms P-R-T Axes : 000 -12 057 degrees QTc Int : 430 ms Normal sinus rhythm with frequent Premature atrial complexes Nonspecific ST abnormality Abnormal ECG When compared with ECG of 10-AUG-2022 23:32, Non-specific change in ST segment in Anterior leads Nonspecific T wave abnormality now evident in Inferior leads Referred By: Rowan Rosales Electronically Signed By:MICHAEL PARRISH
--- NOTE | 2022-11-12 10:07 | HO.CARDIVERS ---
Cardioversion Procedure Note Cardioversion Date of Procedure: 11/12/2022 Ordering Provider: Performing Provider: Indication for Procedure: Atrial flutter with rapid ventricular rate Pre-Op Diagnosis: Atrial flutter with rapid ventricular rate Post-Op Diagnosis: Sinus rhythm TIMOTHY findings (if TIMOTHY Performed): Not performed History: See full office note Consent: Informed consent obtained. Procedure: After informed consent was obtained, patient was taken to the PACU. The patient was then positioned appropriately. The cardioversion pads were placed in anteroposterior position. Once under anesthesia, 120 joules of synchronized shock was administered. The rhythm converted from atrial fibrillation to sinus rhythm. Patient remained in sinus rhythm after the end of procedure. Complications: None. Impression: Successful cardioversion from atrial flutter to sinus rhythm. Recommendations: Continue metoprolol and diltiazem. Follow-up will be arranged.
--- NOTE | 2022-11-12 10:08 | MHC.SHP ---
Pre-Procedural Eval Section A Date of Service: 11/12/22 The patient is an INPATIENT: No The History & Physical has been completed within 30 days and I have reviewed it.: Yes Section B Chief Complaint: Unspecified atrial flutter Allergies: Allergies Allergy/AdvReac Type Severity Reaction Status Date / Time morphine Allergy Severe Anaphylaxis Verified 11/05/22 14:47 acetaminophen [From Tylenol] Allergy Intermediate Gastrointestinal Verified 11/09/22 13:02 Upset Plan I have reviewed the history and physical and performed a pertinent physical examination on my patient. No changes have occurred unless specified. Time Spent With Patient Time: Total time managing care of this patient today ____ minutes.
[2022-11-12] MEDS: Lactated Ringers 1,000 ML 50 ML IVCONT (10:10)
--- NOTE | 2022-11-12 10:27 | ECG_ITS ---
Test Reason : s/p cardioversion Blood Pressure : / mmHG Vent. Rate : 065 BPM Atrial Rate : 065 BPM P-R Int : 192 ms QRS Dur : 094 ms QT Int : 442 ms P-R-T Axes : 068 -48 062 degrees QTc Int : 459 ms Normal sinus rhythm Left anterior fascicular block Possible Anterior infarct , age undetermined Abnormal ECG When compared with ECG of 12-NOV-2022 09:55, Vent. rate has decreased BY 36 BPM Left anterior fascicular block is now Present Nonspecific T wave abnormality no longer evident in Inferior leads Referred By: Servando Forman Electronically Signed By:MICHAEL PARRISH
[2022-11-12 10:40] VITALS: BP 134/70; PULSE 69; RESP 17; TEMP 36.7; O2SAT 98
[2022-11-12 10:45] VITALS: BP 138/77; PULSE 70; RESP 18; O2SAT 97
[2022-11-12 10:50] VITALS: BP 142/84; PULSE 67; RESP 20; O2SAT 96
[2022-11-12 10:55] VITALS: BP 143/80; PULSE 79; RESP 20; TEMP 36.8; O2SAT 97
[2022-11-12 11:10] VITALS: BP 142/94; PULSE 73; RESP 18; TEMP 36.8; O2SAT 97
== END 2022-11-12 11:48 | disposition home or self-care (01) ==
PROVIDERS: PCP Internal Medicine; Visit Provider Internal Medicine
PROC: 5A2204Z Restoration of Cardiac Rhythm, Single (ICD-10-PCS; principal; 2022-11-12 10:00)
DX: I48.92 Unspecified atrial flutter (principal); I10 Essential (primary) hypertension; R73.9 Hyperglycemia, unspecified; J45.909 Unspecified asthma, uncomplicated; E78.5 Hyperlipidemia, unspecified; Z79.01 Long term (current) use of anticoagulants; Z79.1 Long term (current) use of non-steroidal anti-inflammatories (NSAID); Z79.899 Other long term (current) drug therapy; F11.20 Opioid dependence, uncomplicated; F14.10 Cocaine abuse, uncomplicated; F17.210 Nicotine dependence, cigarettes, uncomplicated; F10.90 Alcohol use, unspecified, uncomplicated
CPT/HCPCS: 92960; 93005; J2250

== ENCOUNTER → 2022-11-12 08:47 | Outpatient (BNV) | payer MEDICARE, MEDICAID, SELFPAY | PROVIDERS: PCP Internal Medicine; Visit Provider Internal Medicine | DX: I48.92 Unspecified atrial flutter (principal) | CPT/HCPCS: 92960 ==

== ENCOUNTER 2022-12-01 14:38 | Outpatient (AMB) | payer MEDICARE, MEDICAID, SELFPAY ==
[2022-12-01 14:43] VITALS: BP 140/82; PULSE 93; BMI 26.9
--- NOTE | 2022-12-01 14:43 | MHC.OFFVIS ---
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 Required: No Allergies morphine Allergy (Severe, Verified 12/01/22 14:47) Anaphylaxis acetaminophen [From Tylenol] Allergy (Intermediate, Verified 12/01/22 14:47) Gastrointestinal Upset Medication List - Last Reconciled 12/01/22 by ARYA Vidal albuterol sulfate 90 mcg/actuation (Ventolin HFA) 90 mcg inhalation Q4-6H PRN apixaban (Eliquis) 5 mg PO BID 30 days atorvastatin 20 mg PO BEDTIME bisacodyl (Dulcolax (bisacodyl)) 10 mg (2 x 5 mg) PO BEDTIME buprenorphine-naloxone 8-2 mg 1 tab sublingual TID citalopram 20 mg PO DAILY clonazepam (Klonopin) 1 mg PO BID PRN diltiazem HCl 180 mg PO DAILY [id number] 200-62.5-25 mcg (Trelegy Ellipta) 1 ea inhalation DAILY hydrochlorothiazide 12.5 mg PO DAILY metoprolol tartrate 100 mg PO BID 90 days multivitamin 1 tab PO DAILY pantoprazole 40 mg PO DAILY@0630 polyethylene glycol 3350 (Miralax) 17 grams PO DAILY prucalopride (Motegrity) 2 mg PO DAILY sucralfate 1 g PO DAILY zolpidem (Ambien) 10 mg PO BEDTIME PRN HPI Follow up Cardioversion HPI Details Nikko is a 52-year-old male with past medical history of substance abuse, alcohol use, hypertension, hyperlipidemia, newer finding of atrial flutter with secondary and STEMI. He underwent an outpatient cardioversion on 11/12/2022 and now presents for follow-up. Today he reports that he had in feel any different after the cardioversion and continues to feel the same. He notices some shortness of breath but he relates it to his COPD/smoking. Coughing at this visit and he says it is from smoking. Denies recent respiratory illness. He tells me he has cut down his smoking amount. He says he has not been drinking alcohol daily, only on occasion. He denies weakness and fatigue. He has developed leg swelling in the last few weeks which is new for him. No chest discomfort at rest or with activity. No presyncope, syncope, falls. Taking meds as directed. [facility] Medical History Tubular adenoma Tariq's 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 Mother Chronic a-fib Sister Chronic a-fib Social History Household Members: Spouse Housing: Apartment Do you presently have visiting nurse or other home services: No Alcohol intake: current Alcohol intake frequency: does not drink Alcohol type: beer Patient Tobacco Use Status: Current everyday Tobacco user Tobacco use type: Cigarette Cigarette Packs Per Day: 0.5 Cigarettes Per Day: 10.0 e-Cigarette/Vaping Use: Never Used Second Hand Smoke Exposure: Yes service: No Current occupational status: disabled Cognitive needs: No Hearing needs: No Vision needs: No Review of Systems Const All systems reviewed & are unremarkable except as noted in HPI and below ENT Denies dizziness Card Denies chest pain, Denies chest pain at rest, Denies chest pain with activity, Denies rapid heart rate, Reports pedal edema, Denies edema, Reports leg edema, Denies lightheadedness, Denies palpitations, Denies dyspnea, Reports dyspnea on exertion and Denies orthopnea Resp Details: Chest congestion Reports cough, Denies dyspnea and Reports dyspnea on exertion GI Denies hematochezia and Denies change in stool character Musc Denies abnormal gait, Denies limited range of motion, Denies muscle cramps, Denies muscle weakness, Denies numbness, Denies radiating pain into limb, Denies stiffness and Denies tingling Neuro Denies abnormal gait, Denies dizziness, Denies numbness and Denies tingling Endo Denies palpitations Physical Exam Vital Signs: Last Vital Signs Pulse 93 12/01/22 14:43 BP 140/82 H 12/01/22 14:43 BMI result Body Mass Index 26.9 Const General: cooperative, healthy appearing, comfortable and no acute distress Orientation/consciousness: patient oriented x3 Neck Neck: Yes normal visual inspection Resp Effort & Inspection: normal respiratory effort Auscultation: clear to auscultation bilaterally, no rales, no rhonchi and no wheezes Cardio Jugular venous distension: no JVD Rate: regular rate Heart sounds: S1 normal heart sound present, S2 normal heart sound present, no murmurs and no rubs Neuro General: patient oriented x3 Extrem General: Yes normal to inspection Psych Appearance: grossly normal Mental Status: mental status grossly normal Speech and movement: Normal speech and movement present Office Procedures EKG Details: Atrial flutter with variable AV block, 1 PVC, nonspecific ST abnormality, rate 93 [id number], Complete Assessment & Plan Assessment & Plan (1) Atrial flutter: Code(s): I48.92 - Unspecified atrial flutter Qualifiers: Atrial flutter type: typical Qualified Code(s): I48.3 - Typical atrial flutter Plan: June 2022 [facility] [place] admission with new finding of atrial flutter, pneumonia, secondary NSTEMI. He was treated with meds for heart rate control and converted back to normal sinus rhythm. Chads Vasc score of 1 with hypertension. He did not initially require anticoagulation. He does use alcohol routinely. Echocardiogram done 07/24/2022 showed EF greater than 50%, possible basal inferior and inferior lateral hypokinesis. He did undergo cardiac catheterization on 07/28/2022 showing only minimal irregularities in the LAD. On follow-up visit he was noted to have atrial flutter, heart rate 129. He had not been taking metoprolol and it was restarted at 50 mg b.i.d.. A Holter monitor was done on 09/09/2022 showing atrial fibrillation with average heart rate 110. His metoprolol dose was increased to 100 mg b.i.d. and Eliquis 5 mg b.i.d. was started on 09/21/2022. He then underwent cardioversion on 11/12/2022 with successful conversion to sinus rhythm. Today he presents for follow-up with EKG showing atrial flutter with variable AV block, rate 93. He tells me he did not feel any different after the cardioversion. He has some shortness of breath which he is relating to his COPD and smoking. On examination he has wheezes noted and bilateral lower leg edema. Will check labs today including BMP and BNP. Plan to call him with results and plan of care. Continue current meds including Eliquis, metoprolol, diltiazem. Cardiology follow-up in office in 3 months, sooner if needed. Emergency care if needed for symptoms. (2) NSTEMI (non-ST elevated myocardial infarction): Code(s): I21.4 - Non-ST elevation (NSTEMI) myocardial infarction Plan: Troponin elevation at time of hospital admission for pneumonia and atrial flutter with RVR. Met criteria for secondary NSTEMI. Echo showed possible wall motion abnormality and he did undergo cardiac catheterization showing no significant CAD. Continue atorvastatin and metoprolol. (3) S/P cardiac cath: Comment: 07/28/22 LM, LCx, RCA normal, LAD minimal irregularities Code(s): Z98.890 - Other specified postprocedural states (4) Alcohol use: Code(s): Z78.9 - Other specified health status Plan: Tells me he is currently using alcohol only occasionally, not daily Orders: Orders Basic Metabolic Panel Today I48.92 - Unspecified atrial flutter B Type Natriuretic Peptide Today I48.92 - Unspecified atrial flutter Complete Blood Count Auto Diff Today I48.92 - Unspecified atrial flutter Coding Level of Care Code Est Pt Level 4 (71067) Diagnoses Typical atrial flutter I48.3 Atrial flutter type: typical NSTEMI (non-ST elevated myocardial infarction) I21.4 S/P cardiac cath Z98.890 Alcohol use Z78.9 CPT Codes EKG - CPT: 16602-[id number], Complete ([id number])
== END 2022-12-01 15:29 | disposition home or self-care (01) ==
PROVIDERS: PCP Internal Medicine; Visit Provider Nurse Practitioner Family
DX: I48.3 Typical atrial flutter (principal); I21.4 Non-ST elevation (NSTEMI) myocardial infarction; Z98.890 Other specified postprocedural states; Z78.9 Other specified health status
CPT/HCPCS: 93010; 99214

== ENCOUNTER 2022-12-01 14:38 | Outpatient (REF) | payer MEDICARE, MEDICAID, SELFPAY ==
[2022-12-01 15:38] LABS: MANUAL DIFF FLAG NO
[2022-12-01 15:51] LABS: Basophils Percent Auto 0.5 % (0-2); Eosinophils Percent Auto 0.6 % (0-4); Hematocrit 40.7 % (42.0-52.0); Imm Gran Abs Auto 0.02 X10*3/uL (0.00-0.03); Imm Gran Pct Auto 0.3 % (0.0-0.4); Lymphocytes Absolute Auto 1.2 X10*3/uL (1.2-4.9); Lymphocytes Percent Auto 18.6 % (20-40); Mean Corpuscular HGB Conc 34.4 g/dl (31.0-36.0); Mean Corpuscular Hemoglobin 34.2 pg (27.0-33.0); Mean Corpuscular Volume 99.5 fL (80.0-98.0); Mean Platelet Volume 9.7 fL (9.4-12.4); Monocytes Absolute Auto 0.7 X10*3/uL (0.1-1.2); Monocytes Percent Auto 10.7 % (2-11); Neutrophils Absolute Auto 4.5 x10*3/uL (2.0-8.3); Neutrophils Percent Auto 69.3 % (45-73); Red Blood Count 4.09 X10*6/uL (4.60-5.80); White Blood Count 6.6 X10*3/uL (4.8-10.8)
[2022-12-01 16:11] LABS: Anion Gap 14 (12-20); Blood Urea Nitrogen 13 mg/dL (9-16); Calcium 9.2 mg/dL (8.4-10.2); Carbon Dioxide 31 mmol/L (22-29); Chloride 98 mmol/L (96-108); Estimated Glomerular Filt Rate > 60; Glucose Random 116 mg/dL (60-115); Potassium 3.9 mmol/L (3.3-5.1); Sodium 139 mmol/L (135-145)
[2022-12-01 16:18] LABS: B Type Natriuretic Peptide 506 pg/mL (<100)
[2022-12-01 16:35] LABS: Platelet Count 75 X10*3/uL (160-400)
== END 2022-12-01 14:39 | disposition home or self-care (01) ==
LOC: HO.LAB 14:38
PROVIDERS: PCP Internal Medicine; Visit Provider Nurse Practitioner Family
DX: I48.3 Typical atrial flutter (principal); F10.90 Alcohol use, unspecified, uncomplicated; I25.2 Old myocardial infarction
CPT/HCPCS: 36415; 80048; 83880; 85025; 93005; 99212

== ENCOUNTER → 2022-12-22 08:03 | Outpatient (REF) | payer MEDICARE, MEDICAID, SELFPAY ==
--- NOTE | 2022-12-22 08:10 | HM_ITS ---
Conclusion: 1. Patient was monitored for total period of 3 days 2. Baseline was atrial fibrillation with average heart of 102 beats per minute within adequate rate control. 51% of time heart rate about 100 beats per minute 3. No significant pauses noted 4. 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 MTDD
--- NOTE | 2022-12-22 08:10 | CA_ITS ---
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 There is normal left ventricular wall thickness. The left ventricular systolic function is mild to moderately decreased. The visually estimated ejection fraction is between 40-45%. Diastolic function is indeterminate on the basis of available data. Right Ventricle Mildly increased right ventricular cavity size. There is normal right ventricular systolic function. Prior Study Comparison Changes noted compared to prior study dated: 07/24/2022. LV systolic function appears mildly reduced Measurements 2D Linear Measurements IVSd: 1.04 0.6-0.9/0.6-1.0 cm LVIDd: 5.15 3.9-5.3/4.2-5.9 cm LVIDd Index: 2.52 2.4-3.2/2.2-3.1 cm/m2 LVIDs: 4.18 2.0-3.6 cm LVPWd: 1.04 0.7-1.1 cm LV Mass: 251.00 67-162/88-224 g LV Mass Index: 123.04 43-95/49-115 g/m2 LVOT Diam: 2.00 3.0+(-)1.3 cm 2D Systolic Function EF 4C: 40.70 >55% EF 2C: 17.00 >55% Mitral Valve MV Pk E: 0.83 MV Decel Time: 125.00 E'Lateral: 12.90 E'Medial: 9.14 E/E' Med: 9.00 E/E' Lat: 6.40 PHT: 37.00 MVA PHT: 5.95 Decel [place]: 6.63 LVOT LVOT Pk Malachi: 0.98 LVOT Mn Malachi: 0.65 LVOT VTI: 0.16 LVOT Pk Grad: 4.00 LVOT Mn Grad: 2.00 LVOT Diam: 2.00 LVOT Area: 3.14 Diastolic Function MV Pk E: 0.83 E'Medial: 9.14 E/E' Med: 9.00 E' Laterial: 12.90 E/E' Lat: 6.40 Right Ventricle TAPSE (mm): 21.00 TVS' Malachi: 11.00 Tricuspid Valve TR Pk Malachi: 2.40 TR Pk Grad: 23.00 RA Press: 15.00 RVSP: 38.00 Updated in Other Vendor System with Status of Final Doroteo Ng MD electronically signed on 12/23/2022 12:06:15 PM with status of Final
== END ==
LOC: HO.CARD 08:03
PROVIDERS: PCP Internal Medicine; Visit Provider Nurse Practitioner Family
DX: I48.3 Typical atrial flutter (principal)
CPT/HCPCS: 93242; 93308

== ENCOUNTER → 2022-12-22 08:10 | Outpatient (BNV) | payer MEDICARE, MEDICAID, SELFPAY | PROVIDERS: PCP Internal Medicine; Visit Provider Internal Medicine Cardiovascular Disease | DX: I48.91 Unspecified atrial fibrillation (principal) | CPT/HCPCS: 93244; 93308 ==

== ENCOUNTER 2023-03-11 12:54 | Outpatient (AMB) | payer MEDICARE, MEDICAID, SELFPAY ==
[2023-03-11 12:59] VITALS: BP 140/64; PULSE 95; BMI 26.8
--- NOTE | 2023-03-11 12:59 | A.OFFVIS_ITS ---
Intake Vital Signs 03/11/23 12:59 03/11/23 13:31 Height 5 ft 10 in Weight 186 lb 15.232 oz BMI 26.8 BP 140/64 H 118/70 Blood Pressure Location Lt brachial Lt brachial Position Sitting Sitting Pulse 95 Intake Visit Reasons: follow-up cardioversion Intake Note: f/up cardioversion/ pt its feeling fine. 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: No Accompanied by: Self / Same As Patient Allergies morphine Allergy (Severe, Verified 03/11/23 13:22) Anaphylaxis acetaminophen [From Tylenol] Allergy (Intermediate, Verified 03/11/23 13:22) Gastrointestinal Upset Medication List - Last Reconciled 03/11/23 by Florinda Childress NP albuterol sulfate 90 mcg/actuation (Ventolin HFA) 90 mcg inhalation Q4-6H PRN apixaban (Eliquis) 5 mg PO BID 30 days atorvastatin 20 mg PO BEDTIME bisacodyl (Dulcolax (bisacodyl)) 10 mg (2 x 5 mg) PO BEDTIME buprenorphine-naloxone 8-2 mg 1 tab sublingual TID citalopram 20 mg PO DAILY clonazepam (Klonopin) 1 mg PO BID PRN diltiazem HCl 240 mg PO DAILY vqmwqwiezgn-wllgduusx-cmvsoayx 200-62.5-25 mcg (Trelegy Ellipta) 1 ea inhalation DAILY furosemide 20 mg PO DAILY metoprolol tartrate 100 mg PO BID 90 days multivitamin 1 tab PO DAILY pantoprazole 40 mg PO DAILY@0630 polyethylene glycol 3350 (Miralax) 17 grams PO DAILY prucalopride (Motegrity) 2 mg PO DAILY sucralfate 1 g PO DAILY zolpidem (Ambien) 10 mg PO BEDTIME PRN HPI HPI Comments History of Present Illness Details 53-year-old male presents today for a fo llow-up. He has a medical history of atrial fluter, substance abuse, hyperlipidemia, and hypertension. Today he reports he feels decent. He is still avoiding alcohol with occasional use and has cut back on smoking and is using nicotine gum. He avoids caffeine and tries to eat healthy. He had some right upper chest pain by his clavicle that occurred after shoveling and has gone away since. She gets some occational shortness of breath that improves with his inhaler and attributes to his asthma and smoking. He states the swelling in his legs went away and has not returned. Blood pressure upon arrival elevated - rechecked by me and improved to normal limits. [facility] Medical History Tubular adenoma Tariq's 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 Mother Chronic a-fib Sister Chronic a-fib Social History Household Members: Spouse Housing: Apartment Do you presently have visiting nurse or other home services: No Alcohol intake: current Alcohol intake frequency: does not drink Alcohol type: beer Patient Tobacco Use Status: Current everyday Tobacco user Tobacco use type: Cigarette Cigarette Packs Per Day: 0.5 Cigarettes Per Day: 10.0 e-Cigarette/Vaping Use: Never Used Second Hand Smoke Exposure: Yes service: No Current occupational status: disabled Cognitive needs: No Hearing needs: No Vision needs: No Review of Systems Const Denies chills, Denies fatigue, Denies fever(s), Denies frequent falls, Denies weakness, Denies weight gain and Denies weight loss ENT Denies dizziness Card Denies chest pain, Denies leg edema, Denies lightheadedness, Denies palpitations, Denies dyspnea and Denies dyspnea on exertion Resp Reports cough, Denies dyspnea and Denies dyspnea on exertion GI Denies hematochezia Musc Denies abnormal gait, Denies muscle weakness, Denies numbness, Denies radiating pain into limb and Denies tingling Neuro Denies abnormal gait, Denies dizziness, Denies frequent falls, Denies numbness, Denies tingling and Denies weakness Endo Denies fatigue and Denies palpitations Physical Exam Vital Signs: Last Vital Signs Pulse 95 03/11/23 12:59 BP 140/64 H 03/11/23 12:59 BMI result Body Mass Index 26.8 Const General: healthy appearing and no acute distress Orientation/consciousness: patient oriented x3 HEENT Head: Yes normal to inspection Eyes General: appearance normal, both eyes and all related structures Neck Neck: Yes normal visual inspection Chest Chest palpation & inspection: normal inspection of the chest Resp Effort & Inspection: normal respiratory effort Auscultation: clear to auscultation bilaterally Cardio Jugular venous distension: no JVD Palpation: normal PMI Rate: regular rate Rhythm: regular rhythm Heart sounds: S1 normal heart sound present, S2 normal heart sound present, no click, no gallops, no murmurs and no rubs GI Inspection: Yes normal to inspection Palpation (GI): Soft to palpation Skin General skin exam: no rashes or lesions noted Neuro General: patient oriented x3 Extrem General: Yes normal to inspection Psych Appearance: grossly normal Office Procedures EKG Details: EKG today A flutter with variable AV Block,. rate 95bpm. QTc 449 ms [id number], Complete Assessment & Plan Assessment & Plan (1) Atrial flutter: Code(s): I48.92 - Unspecified atrial flutter Qualifiers: Atrial flutter type: typical Qualified Code(s): I48.3 - Typical atrial flutter (2) Alcohol use: Code(s): Z78.9 - Other specified health status (3) S/P cardiac cath: Comment: 07/28/22 LM, LCx, RCA normal, LAD minimal irregularities Code(s): Z98.890 - Other specified postprocedural states (4) Cigarette smoker: Code(s): F17.210 - Nicotine dependence, cigarettes, uncomplicated (5) Hypertension: Code(s): I10 - Essential (primary) hypertension Plan Blood pressure within normal limits at recheck. Heart rate higher end of normal. Increase diltiazem from 240mg to 300mg. Continue to avoid alcohol as much as possible and avoid caffeine. Avoid salt use. Report new or worsening symptoms. Medications: New diltiazem HCl ER 300 mg PO DAILY 90 days 90 caps 1RF Discontinued diltiazem HCl Discontinued Reason: Doctor's Order 240 mg PO DAILY 30 caps 5RF Coding Level of Care Code Est Pt Level 4 (38280) Diagnoses Typical atrial flutter I48.3 Atrial flutter type: typical Alcohol use Z78.9 S/P cardiac cath Z98.890 Cigarette smoker F17.210 Hypertension I10 CPT Codes EKG - CPT: 54005-Asnmfustoonghcunt, Complete ([id number])
[2023-03-11 13:31] VITALS: BP 118/70
== END 2023-03-11 13:43 | disposition home or self-care (01) ==
PROVIDERS: PCP Internal Medicine; Visit Provider Nurse Practitioner
DX: I48.3 Typical atrial flutter (principal); Z78.9 Other specified health status; Z98.890 Other specified postprocedural states; F17.210 Nicotine dependence, cigarettes, uncomplicated; I10 Essential (primary) hypertension
CPT/HCPCS: 93010; 99213

== ENCOUNTER → 2023-03-11 12:54 | Outpatient (BNVA) | payer MEDICARE, MEDICAID, SELFPAY | PROVIDERS: PCP Internal Medicine; Visit Provider Nurse Practitioner | DX: I48.3 Typical atrial flutter (principal); I10 Essential (primary) hypertension; F17.210 Nicotine dependence, cigarettes, uncomplicated; Z78.9 Other specified health status; Z98.890 Other specified postprocedural states | CPT/HCPCS: 93005; 99212 ==

== ENCOUNTER 2023-05-17 09:04 | Outpatient (AMB) | payer MEDICARE, MEDICAID, SELFPAY ==
[2023-05-17 09:11] VITALS: BMI 26.8
--- NOTE | 2023-05-17 09:11 | MHC.OFFVIS ---
Intake Vital Signs 05/17/23 09:11 Height 5 ft 10 in Weight 186 lb 15.232 oz BMI 26.8 Intake Visit Reasons: alcohol use Intake Note: Nikko returns in follow up of GERD. CC: Patient reports having abdominal pain once in a while . He states he has a hernia but he has not being able to undergo surgery d/t being Afib. He also c/o constipation, nausea, and coughing up a lot. Per patient sometimes he throws up phlegm and sometimes this tuff like skin color, orangy color. He states the cough wakes him up from his sleep. He c/o chest pain and SOB, he state she recently had some pictures taken at [facility]. 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 Patient admits to drinking several beers last night. Discussed with patient abstaining from alcohol. Umbilical hernia Unable to palpate actual hernia, rectus abdominus most likely. Will refer patient to surgery GERD (gastroesophageal reflux disease) Continue pantoprazole daily. Continues avoiding dietary triggers. Discussed with patient avoiding alcohol Chronic idiopathic constipation Continue Motegrity. Patient was encouraged to increase fluid intake and activity to promote better bowel motility. Patient will also take Dulcolax 2 tablets every evening. Encouraged to take MiraLax daily. Patient was encouraged to go to ER, increased edema in bilateral lower extremities. Patient does report to have chest pressure and shortness of breath with activity. Patient refuses. 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 He will come back in 3 weeks for follow-up, sooner on as needed basis. Patient is agreeable to this plan and verbalizes understanding of instructions. He was given the opportunity to ask questions and all questions answered. ? Thank you for allowing me to participate in his care Plan Orders Referrals General Surgery Referral K42.9 - Umbilical hernia without obstruction or gangrene Medications New bisacodyl (Dulcolax (bisacodyl)) 10 mg (2 x 5 mg) PO BEDTIME 180 tabs 4RF polyethylene glycol 3350 (Miralax) 17 grams PO DAILY 510 grams 2RF Discontinued pantoprazole take one tablet half an hour before breakfast 40 mg PO DAILY 90 tabs 3RF K21.9 - Gastro-esophageal reflux disease without esophagitis tadalafil 5 mg PO DAILY 90 days 90 tabs 0RF sexual activity E29.1 - Testicular hypofunction TODAY'S VISIT Patient is here today for follow-up. Patient has never made an appointment with General surgeon to discuss umbilical hernia. Patient has been treated by Cardiology for AFib. Patient continues to drink alcohol and smoke cigarettes every day. Patient reports that he has decreased the amount of smoking. Patient is taking Motegrity in the morning and Dulcolax in the evening and still occasionally will have constipation. Patient states that he drinks fluids, most likely not drinking enough water. Patient reports that when he has a bowel movement it is usually hard. Patient denies any melena, hematochezia, unintentional weight loss or ribbon like stools. Reports that his acid reflux is suppressed for the most part with pantoprazole. 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 Patient will see him again next month and they will repeat CT scan. [facility] Medical History Tubular adenoma Tariq's 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 Mother Chronic a-fib Sister Chronic a-fib Social History (Reviewed 03/18/24 @ 09:21 by ELIZABETH Tse Household Members: Spouse Housing: Apartment Do you presently have visiting nurse or other home services: No Alcohol intake: current Alcohol intake frequency: does not drink Alcohol type: beer Patient Tobacco Use Status: Current everyday Tobacco user Tobacco use type: Cigarette Cigarette Packs Per Day: 0.5 Cigarettes Per Day: 10.0 e-Cigarette/Vaping Use: Never Used Second Hand Smoke Exposure: Yes service: No Current occupational status: disabled Cognitive needs: No Hearing needs: No Vision needs: No Review of Systems Const Denies weight gain and Denies weight loss ENT Reports no additional complaints, Denies dysphagia and Denies odynophagia Card Reports no additional complaints Resp Reports cough GI Reports abdominal pain, Denies belching, Denies melena, Reports bloating, Denies change in bowel habits, Reports constipation, Denies dysphagia, Denies excessive flatus, Denies dyspepsia, Reports heartburn (Occasional), Denies diarrhea, Denies loose stools, Denies nausea, Denies odynophagia and Denies vomiting Reports no additional complaints Musc Reports no additional complaints Neuro Reports no additional complaints Psych Reports no additional complaints Endo Reports no additional complaints Physical Exam Vital Signs: BMI result Body Mass Index 26.8 Const General: healthy appearing, no acute distress and well developed Nutritional Appearance: well nourished Orientation/consciousness: patient oriented x3 Resp Effort & Inspection: normal respiratory effort, able to speak in complete sentences, no tracheal deviation and symmetric chest movement Auscultation: clear to auscultation bilaterally Cardio Rate: regular rate GI Inspection: Yes normal to inspection and No distended Palpation (GI): Soft to palpation, not firm, nontender and No hepatosplenomegaly present Auscultation: normal bowel sounds General: Yes no CVA tenderness Back/Spine/Pelvis Back: no CVA tenderness Skin General skin exam: elasticity normal, turgor normal and dry skin Neuro General: patient oriented x3 Psych Appearance: grossly normal Mental Status: mental status grossly normal Assessment & Plan Assessment & Plan (1) Alcohol use: Code(s): Z78.9 - Other specified health status (2) GERD (gastroesophageal reflux disease): Code(s): K21.9 - Gastro-esophageal reflux disease without esophagitis Qualifiers: Esophagitis bleeding: without hemorrhage Esophagitis presence: with esophagitis Qualified Code(s): K21.00 - Gastro-esophageal reflux disease with esophagitis, without bleeding (3) Chronic idiopathic constipation: Code(s): K59.04 - Chronic idiopathic constipation (4) Umbilical hernia: Code(s): K42.9 - Umbilical hernia without obstruction or gangrene Qualifiers: Obstruction and gangrene presence: without obstruction or gangrene Qualified Code(s): K42.9 - Umbilical hernia without obstruction or gangrene (5) Postprandial abdominal bloating: Code(s): R14.0 - Abdominal distension (gaseous) Plan History of thrombocytopenia. Will recheck CBC and check PT and INR. Patient reports abdominal pain and bloating. Pain in the upper abdomen for the most part. No tenderness to the abdomen except for mild tenderness to periumbilical area. Patient will follow-up with surgery. Patient continues to have constipation. Patient will take Motegrity every day as well as Dulcolax tablets. Patient will drink more fluids. Patient will try to increase activity to promote better bowel motility. Continue taking pantoprazole in the morning. May hold off taking sucralfate in the evening as this is also contributing to his constipation. Will send him for abdominal ultrasound to rule out cholelithiasis, cholecystitis, pancreatitis. Patient will follow-up in the office in 3 months, sooner on as needed basis. Patient will call the office if he will continue to have symptoms. He is agreeable to this plan and verbalizes understanding of instructions. He was given the opportunity to ask questions and all questions answered. Thank you for allowing me to participate in his care Orders: Orders Complete Blood Count no Diff Today K21.9 - Gastro-esophageal reflux disease without esophagitis Comprehensive Met. Panel Today K21.9 - Gastro-esophageal reflux disease without esophagitis Prothrombin Time INR Today R74.8 - Abnormal levels of other serum enzymes US abdomen complete Today R10.9 - Unspecified abdominal pain Lipase Today R10.9 - Unspecified abdominal pain Medications: New docusate sodium 100 mg PO BEDTIME 90 caps 3RF K59.00 - Constipation, unspecified Refilled bisacodyl (Dulcolax (bisacodyl)) 10 mg (2 x 5 mg) PO BEDTIME 180 tabs 4RF Coding Level of Care Code Est Pt Level 4 (66300) Diagnoses Alcohol use Z78.9 Gastroesophageal reflux disease with esophagitis without hemorrhage K21.00 Esophagitis bleeding: without hemorrhage Esophagitis presence: with esophagitis Chronic idiopathic constipation K59.04 Umbilical hernia without obstruction and without gangrene K42.9 Obstruction and gangrene presence: without obstruction or gangrene Postprandial abdominal bloating R14.0 Time Spent (min) 35 Comment 25 minutes spent with patient and additional 10 minutes spent reviewing his records
== END 2023-05-17 09:33 | disposition home or self-care (01) ==
PROVIDERS: PCP Internal Medicine; Visit Provider Nurse Practitioner Family
DX: Z78.9 Other specified health status (principal); K21.00 Gastro-esophageal reflux disease with esophagitis, without bleeding; K59.04 Chronic idiopathic constipation; K42.9 Umbilical hernia without obstruction or gangrene; R14.0 Abdominal distension (gaseous)
CPT/HCPCS: 99214

== ENCOUNTER → 2023-05-17 09:04 | Outpatient (BNVA) | payer MEDICARE, MEDICAID, SELFPAY | PROVIDERS: PCP Internal Medicine; Visit Provider Nurse Practitioner Family | DX: K21.00 Gastro-esophageal reflux disease with esophagitis, without bleeding (principal); K59.04 Chronic idiopathic constipation; K42.9 Umbilical hernia without obstruction or gangrene; R14.0 Abdominal distension (gaseous); R10.9 Unspecified abdominal pain; R74.8 Abnormal levels of other serum enzymes; Z78.9 Other specified health status | CPT/HCPCS: 99212 ==

== ENCOUNTER 2023-06-03 09:47 | Outpatient (REF) | payer MEDICARE, MEDICAID, SELFPAY ==
--- NOTE | ~2023-06-03 | US_ITS ---
EXAMINATION: US ABDOMEN COMPLETE CLINICAL INFORMATION: Unspecified abdominal pain. COMPARISON: CT abdomen and pelvis 07/24/2022. TECHNIQUE: Real-time imaging of the abdominal viscera. Limited visualization due to bowel gas. FINDINGS: PANCREAS: Limited visualization of pancreatic tail and head. Imaged portion of pancreatic body is unremarkable. ABDOMINAL AORTA: Unremarkable. INFERIOR VENA CAVA: Visualized portions are normal. LIVER: Hepatomegaly, 16.7 cm. Increased hepatic parenchymal heterogeneity and echogenicity could be associated with hepatocellular disease/hepatic steatosis and substantially limits visualization. Correlation with liver function tests and clinical exam recommended to determine further management. GALLBLADDER: Tiny echogenic foci within the gallbladder may represent sludge/tiny stones. No gallbladder wall thickening. COMMON BILE DUCT: Normal in caliber measuring 0.6 cm in diameter. RIGHT KIDNEY: No hydronephrosis or renal calculi. The kidney measures 11.4 cm in maximum dimension. Limited visualization. Tiny 0.5 cm cortical cyst is difficult to characterize due to small size and bowel gas. A 1.1 x 1.0 x 0.8 cm mid pole cortical pole cyst with benign features. There is no indication for follow-up imaging. LEFT KIDNEY: No hydronephrosis. No renal calculi. Limited visualization. The kidney measures 11.3 cm in maximum dimension. SPLEEN: The spleen measures 10.7 cm in maximum dimension. A 0.9 x 0.9 x 1.0 cm echogenic focus in the midportion of the spleen. FREE FLUID: None. US/US abdomen complete IMPRESSION: 1. Hepatomegaly, 16.7 cm. Increased hepatic parenchymal heterogeneity and echogenicity could be associated with hepatocellular disease/hepatic steatosis and substantially limits visualization. Correlation with liver function tests and clinical exam recommended to determine further management. 2. Tiny echogenic foci within the gallbladder may represent sludge/tiny stones. No gallbladder wall thickening. 3. A 1.0 cm echogenic focus in the midportion of the spleen. MRI recommended for further characterization.
[2023-06-03 13:09] LABS: Hematocrit 42.5 % (42.0-52.0); Hemoglobin 14.5 g/dl (14.0-18.0); Mean Corpuscular HGB Conc 34.1 g/dl (31.0-36.0); Mean Corpuscular Hemoglobin 35.5 pg (27.0-33.0); Mean Corpuscular Volume 103.9 fL (80.0-98.0); Mean Platelet Volume 10.3 fL (9.4-12.4); Platelet Count 85 X10*3/uL (160-400); Red Blood Count 4.09 X10*6/uL (4.60-5.80); Red Cell Distribution Width 13.2 % (11.0-16.0); White Blood Count 9.3 X10*3/uL (4.8-10.8)
[2023-06-03 13:24] LABS: Alanine Aminotransferase 16 U/L (0-40); Albumin Level 3.7 g/dL (3.5-5.0); Alkaline Phosphatase 135 U/L (39-117); Anion Gap 10 (12-20); Aspartate Amino Transferase 37 U/L (5-37); Bilirubin Total 0.5 mg/dL (0.0-1.0); Blood Urea Nitrogen 13 mg/dL (9-16); Calcium 8.9 mg/dL (8.4-10.2); Carbon Dioxide 33 mmol/L (22-29); Chloride 101 mmol/L (96-108); Estimated Glomerular Filt Rate > 60; Glucose Random 114 mg/dL (60-115); Lipase 29 U/L (8-78); Potassium 3.3 mmol/L (3.3-5.1); Sodium 141 mmol/L (135-145); Total Protein 7.2 g/dL (6.5-8.0)
[2023-06-03 13:53] LABS: INTERNATIONAL NORM RATIO 1.2 (0.9-1.1); Prothrombin Time 14.9 SEC (11.1-13.3)
== END 2023-06-03 09:48 | disposition home or self-care (01) ==
LOC: HO.HMGCX 09:47
PROVIDERS: PCP Internal Medicine; Visit Provider Nurse Practitioner Family
DX: R10.9 Unspecified abdominal pain (principal); K21.9 Gastro-esophageal reflux disease without esophagitis; R74.8 Abnormal levels of other serum enzymes
CPT/HCPCS: 36415; 76700; 80053; 83690; 85027; 85610

== ENCOUNTER 2023-08-16 09:00 | Outpatient (AMB) | payer MEDICARE, MEDICAID, SELFPAY ==
--- NOTE | 2023-08-16 09:04 | MHC.OFFVIS ---
Vital Signs 08/16/23 09:10 Height 6 ft Weight 181 lb 3.52 oz BMI 24.6 BP 114/66 Blood Pressure Location Lt brachial Position Sitting Pulse 84 Pulse Source Pulse Oximeter Pulse Oximetry (%) 93 Oxygen Delivery Method Room Air Intake Visit Reasons: 3 month follow up Intake Note: Nikko presents in office today for a scheduled 3 mos FUV. CC; Pt was rx'd dulcolax and colace at their last visit. Pt also had labs ordered which were drawn. Pt reports that he has been taking the medication as directed; however, his sx remain unchanged. Pt denies any changes in sx or presentation. 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 Will recheck CBC and check PT and INR. Patient reports abdominal pain and bloating. Pain in the upper abdomen for the most part. No tenderness to the abdomen except for mild tenderness to periumbilical area. Patient will follow-up with surgery. Patient continues to have constipation. Patient will take Motegrity every day as well as Dulcolax tablets. Patient will drink more fluids. Patient will try to increase activity to promote better bowel motility. Continue taking pantoprazole in the morning. May hold off taking sucralfate in the evening as this is also contributing to his constipation. Will send him for abdominal ultrasound to rule out cholelithiasis, cholecystitis, pancreatitis. Patient will follow-up in the office in 3 months, sooner on as needed basis. Patient will call the office if he will continue to have symptoms. He is agreeable to this plan and verbalizes understanding of instructions. He was given the opportunity to ask questions and all questions answered. ? Thank you for allowing me to participate in his care Orders Orders Complete Blood Count no Diff Today K21.9 Comprehensive Met. Panel Today K21.9 Prothrombin Time INR Today R74.8 US abdomen complete Today R10.9 Lipase Today R10.9 Medications New docusate sodium 100 mg PO BEDTIME 90 caps 3RF K59.00 Refilled bisacodyl (Dulcolax (bisacodyl)) 10 mg (2 x 5 mg) PO BEDTIME 180 tabs 4RF TODAY'S VISIT: Patient is here today for follow-up and to discuss lab results and ultrasound results. Patient continues with abdominal bloating and constipation. Patient states that he takes Motegrity in the morning and Dulcolax in the evening and he continues to be constipated. Patient states that he is drinking fluids. Continues to have umbilical pain and feels like the areas getting bigger. Patient was referred to surgery up with them yet. Patient reports that he feels that this area becomes more painful when he is doing physical activity. Patient denies any nausea or vomiting. Denies any melena, hematochezia, unintentional weight loss or ribbon like stools. Patient reports postprandial abdominal bloating. Acid reflux feels like it is controlled with PPI. Patient denies dyspepsia, dysphagia or odynophagia. Patient continues to smoke cigarettes and drinks beer few times we. Patient reports that he drinks water about 1 case of water per week PFSH Medical History Tubular adenoma Tariq's 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 Mother Chronic a-fib Sister Chronic a-fib Social History Household Members: Spouse Housing: Apartment Do you presently have visiting nurse or other home services: No Alcohol intake: current Alcohol intake frequency: does not drink Alcohol type: beer Patient Tobacco Use Status: Current everyday Tobacco user Tobacco use type: Cigarette Cigarette Packs Per Day: 0.5 Cigarettes Per Day: 10.0 e-Cigarette/Vaping Use: Never Used Second Hand Smoke Exposure: Yes service: No Current occupational status: disabled Cognitive needs: No Hearing needs: No Vision needs: No Review of Systems Const Denies weight gain and Denies weight loss ENT Reports no additional complaints, Denies dysphagia and Denies odynophagia Card Reports no additional complaints Resp Reports no additional complaints GI Denies abdominal pain, Denies belching, Denies melena, Reports bloating, Denies change in bowel habits, Reports constipation, Denies dysphagia, Denies excessive flatus, Denies dyspepsia, Denies heartburn, Denies diarrhea, Denies loose stools, Denies nausea, Denies odynophagia and Denies vomiting Reports no additional complaints Musc Reports no additional complaints Neuro Reports no additional complaints Psych Reports no additional complaints Endo Reports no additional complaints Physical Exam Vital Signs: Last Vital Signs Pulse 84 08/16/23 09:10 BP 114/66 08/16/23 09:10 Pulse Ox 93 08/16/23 09:10 Oxygen Delivery Method Room Air 08/16/23 09:10 BMI result Body Mass Index 24.6 Const General: healthy appearing, no acute distress and well developed Nutritional Appearance: well nourished Orientation/consciousness: patient oriented x3 Resp Effort & Inspection: normal respiratory effort, able to speak in complete sentences, no tracheal deviation and symmetric chest movement Auscultation: clear to auscultation bilaterally Cardio Rate: regular rate GI Inspection: Yes normal to inspection and No distended Palpation (GI): Soft to palpation, not firm, Tenderness to palpation present (GI) (Umbilicus), No hepatosplenomegaly present and Other GI palpation findings present (Umbilical hernia) Auscultation: normal bowel sounds General: Yes no CVA tenderness Back/Spine/Pelvis Back: no CVA tenderness Skin General skin exam: elasticity normal, turgor normal and dry skin Neuro General: patient oriented x3 Psych Appearance: grossly normal Mental Status: mental status grossly normal Results Reviewed Results Reviewed: Laboratory Tests 06/03/23 09:55 MCV 103.9 H Plt Count 85 L PT 14.9 H INR 1.2 H Lipase 29 Laboratory Tests 06/03/23 09:55 Hgb 14.5 Hct 42.5 AST 37 ALT 16 Alkaline Phosphatase 135 H ABDOMINAL ULTRASOUND 06/03/2023 FINDINGS: PANCREAS: Limited visualization of pancreatic tail and head. Imaged portion of pancreatic body is unremarkable. ABDOMINAL AORTA: Unremarkable. INFERIOR VENA CAVA: Visualized portions are normal. LIVER: Hepatomegaly, 16.7 cm. Increased hepatic parenchymal heterogeneity and echogenicity could be associated with hepatocellular disease/hepatic steatosis and substantially limits visualization. Correlation with liver function tests and clinical exam recommended to determine further management. GALLBLADDER: Tiny echogenic foci within the gallbladder may represent sludge/tiny stones. No gallbladder wall thickening. COMMON BILE DUCT: Normal in caliber measuring 0.6 cm in diameter. RIGHT KIDNEY: No hydronephrosis or renal calculi. The kidney measures 11.4 cm in maximum dimension. Limited visualization. Tiny 0.5 cm cortical cyst is difficult to characterize due to small size and bowel gas. A 1.1 x 1.0 x 0.8 cm mid pole cortical pole cyst with benign features. There is no indication for follow-up imaging. LEFT KIDNEY: No hydronephrosis. No renal calculi. Limited visualization. The kidney measures 11.3 cm in maximum dimension. SPLEEN: The spleen measures 10.7 cm in maximum dimension. A 0.9 x 0.9 x 1.0 cm echogenic focus in the midportion of the spleen. FREE FLUID: None. US/US abdomen complete IMPRESSION: 1. Hepatomegaly, 16.7 cm. Increased hepatic parenchymal heterogeneity and echogenicity could be associated with hepatocellular disease/hepatic steatosis and substantially limits visualization. Correlation with liver function tests and clinical exam recommended to determine further management. 2. Tiny echogenic foci within the gallbladder may represent sludge/tiny stones. No gallbladder wall thickening. 3. A 1.0 cm echogenic focus in the midportion of the spleen. MRI recommended for further characterization. Assessment & Plan Assessment & Plan (1) Alcohol use: Code(s): Z78.9 - Other specified health status Category: Social Hx (2) GERD (gastroesophageal reflux disease): Code(s): K21.9 - Gastro-esophageal reflux disease without esophagitis Category: Medical Qualifiers: Esophagitis bleeding: without hemorrhage Esophagitis presence: with esophagitis Qualified Code(s): K21.00 - Gastro-esophageal reflux disease with esophagitis, without bleeding (3) Chronic idiopathic constipation: Code(s): K59.04 - Chronic idiopathic constipation Category: Medical (4) Umbilical hernia: Code(s): K42.9 - Umbilical hernia without obstruction or gangrene Qualifiers: Obstruction and gangrene presence: without obstruction or gangrene Qualified Code(s): K42.9 - Umbilical hernia without obstruction or gangrene (5) Postprandial abdominal bloating: Code(s): R14.0 - Abdominal distension (gaseous) Plan Referral to General surgery again. Will walk over to make an appointment. Dr. Myers and I discussed that. Patient will start taking magnesium oxide. Patient will continue taking pantoprazole daily. Increase Colace. Patient reports that he has to strain when he has a bowel movement. Continue fluid intake and increase activity to promote better bowel motility. Discussed with patient avoiding dietary triggers and late night snacking. Staying upright for minimum 3 hours after meals discussed with patient. Patient will follow-up in the office in 3 months, sooner on as needed basis. He is agreeable to this plan and verbalizes understanding of instructions. He was given the opportunity to ask questions and all questions answered. Thank you for allowing me to participate in his care Orders: Referrals General Surgery Referral K42.9 - Umbilical hernia without obstruction or gangrene Medications: New magnesium oxide 400 mg PO DAILY 90 caps 2RF K59.04 - Chronic idiopathic constipation pantoprazole take one tablet half an hour before breakfast 40 mg PO DAILY@0630 30 tabs 2RF Changed From docusate sodium 100 mg PO BEDTIME 90 caps 3RF K59.00 - Constipation, unspecified To docusate sodium 200 mg (2 x 100 mg) PO BEDTIME 90 caps 3RF K59.00 - Constipation, unspecified Refilled bisacodyl (Dulcolax (bisacodyl)) 10 mg (2 x 5 mg) PO BEDTIME 180 tabs 4RF Coding Level of Care Code Est Pt Level 3 (10994) Diagnoses Alcohol use Z78.9 Gastroesophageal reflux disease with esophagitis without hemorrhage K21.00 Esophagitis bleeding: without hemorrhage Esophagitis presence: with esophagitis Chronic idiopathic constipation K59.04 Umbilical hernia without obstruction and without gangrene K42.9 Obstruction and gangrene presence: without obstruction or gangrene Postprandial abdominal bloating R14.0 Time Spent (min) 30 Comment 20 minutes spent with patient and additional 10 minutes spent reviewing his records
[2023-08-16 09:10] VITALS: BP 114/66; PULSE 84; O2SAT 93; BMI 24.6
== END 2023-08-16 10:33 | disposition home or self-care (01) ==
PROVIDERS: PCP Internal Medicine; Visit Provider Nurse Practitioner Family
DX: Z78.9 Other specified health status (principal); K21.00 Gastro-esophageal reflux disease with esophagitis, without bleeding; K59.04 Chronic idiopathic constipation; K42.9 Umbilical hernia without obstruction or gangrene; R14.0 Abdominal distension (gaseous)
CPT/HCPCS: 99213

== ENCOUNTER → 2023-08-16 09:00 | Outpatient (BNVA) | payer MEDICARE, MEDICAID, SELFPAY | PROVIDERS: PCP Internal Medicine; Visit Provider Nurse Practitioner Family | DX: K21.00 Gastro-esophageal reflux disease with esophagitis, without bleeding (principal); K59.04 Chronic idiopathic constipation; K42.9 Umbilical hernia without obstruction or gangrene; R14.0 Abdominal distension (gaseous); Z78.9 Other specified health status | CPT/HCPCS: 99212 ==

== ENCOUNTER 2023-08-22 12:03 | Inpatient (IN) | payer MEDICARE, MEDICAID, SELFPAY ==
--- NOTE | ~2023-08-22 | CT_ITS ---
EXAMINATION: CT CERVICAL SPINE WITHOUT CONTRAST CLINICAL INFORMATION: Fall COMPARISON: Previous CT of the cervical spine July 2022 TECHNIQUE: Axial images through the cervical spine without contrast. Sagittal and coronal reconstructions. This CT examination was performed using dose optimization techniques as appropriate, variously including the following: *Automated exposure control *Adjustment of mA and/or kV according to patient size (this includes techniques or standardized protocols for targeted exams where dose is matched to indication/reason for exam; i.e. extremities or head) *Use of iterative reconstruction technique DLP: 465 mGy-cm FINDINGS: Curvature of the lower cervical and upper thoracic spine to the left. Bone alignment otherwise normal. Multilevel degenerative spondylosis and degenerative disc disease greatest at C5-C6 C6-C7 and C7-T1. Left-sided facet arthritis. Degenerative changes at the C1 dens articulation. Normal prevertebral soft tissues. Bilateral carotid calcification. Emphysema. Mixed cystic and reticular area at the left lung apex measuring 1.2 cm. Follow-up chest CT should be considered. CT/CT cervical spine wo IV con IMPRESSION: No fracture or dislocation. Curvature of the cervicothoracic spine and degenerative changes. Emphysema. Mixed cystic and reticular area in the left lung apex. Follow-up chest CT recommended. Fleischner guidelines were followed.
--- NOTE | ~2023-08-22 | XR_ITS ---
EXAMINATION: XR TIBIA AND FIBULA, LEFT CLINICAL INFORMATION: Fall. Laceration. Rule out fracture. COMPARISON: None available. TECHNIQUE: AP and lateral views of the left tibia and fibula were obtained. FINDINGS: Bone alignment is normal. No fracture or dislocation. Normal joint spaces. Small osteophyte at the Achilles tendon insertion to the calcaneus. Evidence of trauma to the soft tissues over the lateral upper leg. No radiopaque foreign body seen. XR/XR tibia fibula LT 2V IMPRESSION: No fracture or foreign body seen.
--- NOTE | ~2023-08-22 | CT_ITS ---
EXAMINATION: CT HEAD WITHOUT CONTRAST CLINICAL INFORMATION: Fall. Head trauma. On blood thinning medicine. COMPARISON: Previous head CT most recent July 2022 TECHNIQUE: Contiguous axial imaging was performed from the skull base to vertex without intravenous administration of contrast. This CT examination was performed using dose optimization techniques as appropriate, variously including the following: *Automated exposure control *Adjustment of mA and/or kV according to patient size (this includes techniques or standardized protocols for targeted exams where dose is matched to indication/reason for exam; i.e. extremities or head) *Use of iterative reconstruction technique DLP: 926 mGy-cm FINDINGS: There is no evidence of acute intracranial hemorrhage or territorial infarction. No abnormal mass effect or midline shift is seen. Polanco to white matter differentiation is well preserved. No extra-axial fluid collections are identified. No hydrocephalus. No significant volume loss. Patchy periventricular and deep white matter hypoattenuation is consistent with mild small vessel ischemic changes. No acute osseous or soft tissue abnormality. The mastoid air cells and visualized portions of the paranasal sinuses are well aerated. CT/CT head/brain wo IV con IMPRESSION: No acute intracranial pathology.
--- NOTE | ~2023-08-22 | XR_ITS ---
EXAMINATION: XR CHEST CLINICAL INFORMATION: hypoxia COMPARISON: Chest radiograph 07/24/2022 TECHNIQUE: AP view of the chest was obtained. FINDINGS: The lungs are well expanded. No focal consolidation, effusion, edema, or pneumothorax. The cardiomediastinal silhouette is within normal limits for technique and unchanged. No acute osseous abnormality. XR/XR chest 1V IMPRESSION: No acute pulmonary disease.
--- NOTE | 2023-08-22 12:05 | ECG_ITS ---
Test Reason : AFIB Blood Pressure : / mmHG Vent. Rate : 079 BPM Atrial Rate : 208 BPM P-R Int : 000 ms QRS Dur : 120 ms QT Int : 424 ms P-R-T Axes : 090 -36 087 degrees QTc Int : 486 ms Atrial flutter with variable A-V block Left axis deviation Cannot rule out Inferior infarct , age undetermined Abnormal ECG When compared with ECG of 12-NOV-2022 10:28, Atrial flutter has replaced Sinus rhythm Non-specific change in ST segment in Inferior leads Nonspecific T wave abnormality now evident in Lateral leads Referred By: Generic ED Physician Electronically Signed By:LEYLA IGLESIAS MD
[2023-08-22 12:19] VITALS: BP 129/72; PULSE 82; RESP 16; TEMP 36.6; O2SAT 93; BMI 23.7
--- NOTE | 2023-08-22 12:27 | ED.GENADULT ---
HPI - General Adult General Chief complaint: Fall Stated complaint: AFIB, fall 08/17 leg lac Time Seen by Provider: 08/22/23 15:07 Source: patient Mode of arrival: ambulatory Limitations: no limitations History of Present Illness ED Provider: DR. Taylor HPI narrative: 53-year-old male history of atrial fibrillation on Eliquis had a mechanical fall after he tripped in his garage rash on a sharp object 4 days ago causing a laceration on his left leg that has been bleeding since then. Patient noted during the exam with tremor and tongue fasciculations patient initially denies daily alcohol use then he admitted to daily alcohol use and possibility of having alcohol withdrawal. Related Data Home Medications ?Medication ?Instructions ?Recorded ?Confirmed buprenorphine 8 mg-naloxone 2 mg 1 tab sublingual TID 08/15/20 08/22/23 sublingual tablet albuterol sulfate 90 mcg/actuation 90 mcg inhalation Q4-6H PRN 05/29/22 08/22/23 aerosol inhaler (Ventolin HFA) Shortness Of Breath Or Wheezing fluticasone fur. 200 mcg-umeclid 1 ea inhalation DAILY 07/24/22 08/22/23 62.5 mcg-vilant 25 mcg inhalat.powder (Trelegy Ellipta) multivitamin 1 tab PO DAILY 07/24/22 08/22/23 flecainide 50 mg tablet 50 mg PO BID 08/16/23 08/22/23 citalopram 20 mg tablet 20 mg PO DAILY 08/22/23 08/22/23 docusate sodium 100 mg capsule 100 mg PO BEDTIME 08/22/23 08/22/23 Previous Rx's ?Medication ?Instructions ?Recorded atorvastatin 20 mg tablet 20 mg PO BEDTIME #90 tabs 09/09/22 furosemide 20 mg tablet 20 mg PO DAILY for swelling #30 02/23/23 tabs prucalopride 2 mg tablet 2 mg PO DAILY #90 tabs 03/16/23 (Motegrity) sucralfate 1 gram tablet 1 g PO DAILY #90 tabs 04/28/23 apixaban 5 mg tablet (Eliquis) 5 mg PO BID 30 days #60 tabs 07/27/23 bisacodyl 5 mg tablet,delayed 10 mg (2 x 5 mg) PO BEDTIME #180 08/16/23 release (Dulcolax (bisacodyl)) tabs clonazepam 1 mg tablet (Klonopin) 1 mg PO BID PRN Anxiety #60 tabs 08/16/23 magnesium oxide 400 mg PO DAILY #90 caps 08/16/23 pantoprazole 40 mg tablet,delayed 40 mg PO DAILY@0630 #30 tabs 08/16/23 release zolpidem 10 mg tablet (Ambien) 10 mg PO BEDTIME PRN sleep #30 tabs 08/16/23 diltiazem HCl 300 mg capsule,24 300 mg PO DAILY 90 days #90 caps 08/20/23 hr,extended release metoprolol tartrate 100 mg tablet 100 mg PO BID 90 days #180 tabs 08/20/23 Allergies Allergy/AdvReac Type Severity Reaction Status Date / Time morphine Allergy Severe Anaphylaxis Verified 08/22/23 12:19 acetaminophen [From Tylenol] Allergy Intermediate Gastrointestinal Verified 08/22/23 12:19 Upset Review of Systems Review of Systems: All other systems are reviewed and are negative Constitutional: Reports as per HPI and Reports no additional constitutional complaints Eyes: Reports as per HPI and Reports no additional eye complaints Reports system reviewed and no additional complaints, except as documented Cardiovascular: Reports as per HPI and Reports no additional cardiovascular complaints Respiratory: Reports as per HPI and Reports no additional respiratory complaints Gastrointestinal: Reports as per HPI and Reports no additional gastrointestinal complaints Genitourinary: Reports no additional female genitourinary complaints Musculoskeletal: Reports no additional musculoskeletal complaints Skin/Breast: Reports system reviewed and no additional complaints, except as docu Psychiatric: Reports no additional psychiatric complaints Endocrine: Reports no additional endocrine complaints Hematologic/Lymphatic: Reports no additional hematologic/lymphatic complaints Allergic/Immunologic: Reports no additional allergic/immunologic complaints Reports system reviewed and no additional complaints, except as documented and Reports Abnormal speech present [facility] Past Medical History Medical History Tubular adenoma Tariq's esophagus determined by biopsy GERD (gastroesophageal reflux disease) Chronic idiopathic constipation Hx of opioid abuse Obesity Hyperlipidemia Asthma Peripheral neuropathy Hypertension Lower back pain Surgical History S/P cardiac cath Hx of colonoscopy History of esophagogastroduodenoscopy (EGD) History of back surgery Family History Family History Father No problems noted. Mother Chronic a-fib Sister Chronic a-fib Social History Social History Household Members: Spouse Housing: Apartment Do you presently have visiting nurse or other home services: No Alcohol intake: current Alcohol intake frequency: 3 or more drinks per day Alcohol type: beer and hard liquor Patient Tobacco Use Status: Former Tobacco user Tobacco use type: Cigarette Cigarette Packs Per Day: 0.5 Cigarettes Per Day: 10.0 e-Cigarette/Vaping Use: Never Used Second Hand Smoke Exposure: Yes Advance Directives Date on File: 07/28/22 service: No Current occupational status: disabled Cognitive needs: No Hearing needs: No Vision needs: No Physical Exam ED Vital Signs: Vital Signs - 24 hr 08/22/23 12:19 08/22/23 15:07 Temperature 97.8 F 98.0 F Pulse Rate 82 82 Respiratory Rate 16 16 Blood Pressure 129/72 125/74 Pulse Oximetry 93 95 Oxygen Delivery Method Room Air Room Air BMI result Body Mass Index 23.7 Vital signs have been reviewed and appear to be correct. Blood pressure elevated. Heart rate normal. Respiratory rate normal. Temperature normal. Oxygen saturation normal. Appearance: Alert. Oriented X3. No acute distress. Head: Normal external exam. Left periorbital hematoma, No Arriaga signs noted. No raccoon eyes noted Eyes: PERRLA. EOMI. Conjunctiva and sclera normal. Eyelids normal. ENT: TM's Normal. Pharynx normal. Uvula midline. Moist mucous membranes. No trismus noted. No drooling noted. No muffled voice noted. Neck: Normal inspection. Neck supple. FROM. No adenopathy. Thyroid Normal. No meningeal signs. No neck mass noted. CVS: Normal heart rate and rhythm. Heart sound normal. No murmurs noted. Pulses normal throughout. Respiratory: No respiratory distress. Painless inspiration. Breath sounds normal. No wheezes/rales/rhonchi noted. Chest nontender. No accessory muscle usage noted or decreased air movement noted. Abdomen: Soft and nontender. Bowel sounds normal in all 4 quadrants. No distention noted. No organomegaly noted. No visible injury noted. Back: No CVA tenderness. Full range of motion noted. Skin: Skin warm and dry. Normal skin color. Normal skin turgor. No rashes/lesions/lacerations noted. Extremities: No lower extremity edema. Extremities exhibit normal range of motion. Extremities nontender. Neuro: Oriented X 3. Cranial nerve exam: II-XII are grossly intact, diffuse bilateral in voluntarily tremor with tongue fasciculation. No motor deficit. No sensory deficit. Reflexes normal. Course Course Course Narrative: RME: done by ASHIA Christensen. 53 yold male with pmh of afib. Presents to the ED for left laceration leg that won't stop bleeding since wednesday. Patient states he tripped in the garage in wednesday and fell on head. Patient positive for ecchymosis around left eye. The scalp abrasions. Positive for left leg laceration. Patient smells of alcohol on breath. Patient denies drinking alcohol. EKG was ordered triage labs ordered. Imaging ordered. Reevaluation(s) Reevaluation #1: 53-year-old male came in for evaluation after a mechanical fall 4 days ago on Eliquis, patient now admit to drinking alcohol daily last drink was early this morning. 1. 4-day-old laceration to the left leg with active bleeding, bleeding was controlled with applying pressure dressing wrap around the wound, wound closure would cause further complication as infection, etc. TD booster, no underlying the 5th fracture. 2. Alcohol withdrawal will start the patient on phenobarb patient currently with CIWA score of 9. 3. Hypomagnesemia and hypokalemia will replete electrolyte. 4. On anticoagulation with normal neuro exam, and normal head CT. 5. Left periorbital hematoma with normal extraocular muscle without entrapment, diplopia, or pain. Time: 15:27 Medications Administered Generic Name Dose Route Start Last Admin Trade Name Freq PRN Reason Stop Dose Admin Magnesium Oxide 800 mg 08/22/23 15:40 08/22/23 16:04 Magnesium Oxide 400 Mg Tablet PO 800 mg TID LUCRECIA Administration Phenobarbital Sodium 234 mg 08/22/23 19:00 08/22/23 19:36 Phenobarbital Sodium 130 Mg/Ml Vial Im Q3hx2 IM 08/22/23 22:01 234 mg Q3H LUCRECIA Administration Sodium Chloride 3 ml 08/22/23 16:00 08/22/23 16:24 0.9 % Sodium Chloride Flush 3 Ml Syringe IVFLUSH Not Given QSHIFT LUCRECIA Discontinued Medications Generic Name Dose Route Start Last Admin Trade Name Ángel PRN Reason Stop Dose Admin Diphtheria/Tetanus/Acell Pertussis 0.5 ml 08/22/23 12:23 08/22/23 15:05 Diphth,Pertus(Acell),Tet Adult 0.5 Ml Syringe IM 08/22/23 12:24 0.5 ml .ONCE ONE Administration Magnesium Sulfate 2 gm in 50 mls @ 25 mls/hr 08/22/23 15:03 08/22/23 17:09 Magnesium Sulfate/H2o IV 08/22/23 17:02 Infused ONCE ONE Infusion Phenobarbital Sodium 311 mg 08/22/23 15:45 08/22/23 15:54 Phenobarbital Sodium 130 Mg/Ml Im Once IM 08/22/23 15:46 311 mg ONCE ONE Administration Potassium Chloride 40 meq 08/22/23 15:14 08/22/23 15:19 Potassium Chloride Packet 20 Meq Packet PO 08/22/23 15:15 40 meq ONCE ONE Administration Medical Decision Making Differential Diagnosis Differential Diagnoses: The differential diagnosis associated with the presentation includes (Coagulopathy, electrolyte derangement, alcohol withdrawal, intracranial bleed, cervical spine injury, left leg fracture, wound care, tetanus vaccination booster.) Admission/Observation Consideration of admission/observation: Escalation of care including admission/observation considered Consult Healthcare Provider Management of the patient was discussed with: Hospitalist () Lab Data MDM Lab Attestation statement: I reviewed the patient's lab results. 08/22/23 12:53 08/22/23 12:53 Labs: Lab Results 08/22/23 Range/Units 12:53 WBC 4.7 L (4.8-10.8) X10*3/uL RBC 4.05 L (4.60-5.80) X10*6/uL Hgb 14.7 (14.0-18.0) g/dl Hct 41.3 L (42.0-52.0) % MCV 102.0 H (80.0-98.0) fL MCH 36.3 H (27.0-33.0) pg MCHC 35.6 (31.0-36.0) g/dl RDW 13.2 (11.0-16.0) % Plt Count 91 L (160-400) X10*3/uL MPV 9.6 (9.4-12.4) fL Immature Gran % (Auto) 0.4 (0.0-0.4) % Neut % (Auto) 54.7 (45-73) % Lymph % (Auto) 33.6 (20-40) % Sierra % (Auto) 8.9 (2-11) % Eos % (Auto) 1.3 (0-4) % Baso % (Auto) 1.1 (0-2) % Lymph # (Auto) 1.6 (1.2-4.9) X10*3/uL Sierra # (Auto) 0.4 (0.1-1.2) X10*3/uL Eos # (Auto) 0.1 (0.0-0.4) X10*3/uL Baso # (Auto) 0.1 (0.0-0.2) X10*3/uL Abs Immat Gran (auto) 0.02 (0.00-0.03) X10*3/uL Absolute Neuts (auto) 2.6 (2.0-8.3) x10*3/uL Absolute Nucleated RBC 0.000 (0.0-0.012) X10*3/uL Nucleated RBC % (auto) 0.0 (0.0-0.2) /100WBC PT 16.1 H (11.1-13.3) SEC INR 1.3 H (0.9-1.1) APTT 37.2 H (26.0-36.8) SEC Sodium 144 (135-145) mmol/L Potassium 3.0 L (3.3-5.1) mmol/L Chloride 95 L (96-108) mmol/L Carbon Dioxide 35 H (22-29) mmol/L Anion Gap 17 (12-20) BUN 11 (9-16) mg/dL Creatinine 0.71 (0.5-1.4) mg/dL Estim Creat Clear Calc 130.5 Estimated GFR > 60 Random Glucose 127 H (60-115) mg/dL Calcium 9.0 (8.4-10.2) mg/dL Magnesium 1.2 L* (1.6-2.6) mg/dL Total Bilirubin 0.9 (0.0-1.0) mg/dL AST 49 H (5-37) U/L ALT 19 (0-40) U/L Alkaline Phosphatase 134 H (39-117) U/L Troponin I High Sens 4.9 D (<3.5-35.0) ng/L Total Protein 7.5 (6.5-8.0) g/dL Albumin 3.9 (3.5-5.0) g/dL Ethyl Alcohol 84 mg/dL Independent Interpretation I performed an independent interpretation of an: Plain X-Ray (Left leg: No fracture or foreign body seen.) and CT Scan (Head and cervical spine: No acute intracranial or C-spine injury.) Radiology Impression Discussion of test interpretation with radiology: I have reviewed the radiologist's reading. Discharge Plan Discharge Clinical Impression: Hypomagnesemia, Acute hypokalemia, Alcohol withdrawal, Laceration of left leg Patient Disposition: Admitted As Inpatient Interventions: Admission Worksheet (ED) Last Done: 08/22/23 20:03 Discharge Date/Time: 08/22/23 20:43
[2023-08-22 12:58] LABS: MANUAL DIFF FLAG NO
[2023-08-22 12:59] LABS: Basophils Absolute Auto 0.1 X10*3/uL (0.0-0.2); Basophils Percent Auto 1.1 % (0-2); Eosinophils Absolute Auto 0.1 X10*3/uL (0.0-0.4); Eosinophils Percent Auto 1.3 % (0-4); Hematocrit 41.3 % (42.0-52.0); Hemoglobin 14.7 g/dl (14.0-18.0); Imm Gran Abs Auto 0.02 X10*3/uL (0.00-0.03); Imm Gran Pct Auto 0.4 % (0.0-0.4); Lymphocytes Absolute Auto 1.6 X10*3/uL (1.2-4.9); Lymphocytes Percent Auto 33.6 % (20-40); Mean Corpuscular HGB Conc 35.6 g/dl (31.0-36.0); Mean Corpuscular Hemoglobin 36.3 pg (27.0-33.0); Mean Platelet Volume 9.6 fL (9.4-12.4); Monocytes Absolute Auto 0.4 X10*3/uL (0.1-1.2); Monocytes Percent Auto 8.9 % (2-11); Neutrophils Absolute Auto 2.6 x10*3/uL (2.0-8.3); Neutrophils Percent Auto 54.7 % (45-73); Red Blood Count 4.05 X10*6/uL (4.60-5.80); Red Cell Distribution Width 13.2 % (11.0-16.0); White Blood Count 4.7 X10*3/uL (4.8-10.8)
[2023-08-22 13:01] LABS: Platelet Count 91 X10*3/uL (160-400)
[2023-08-22 13:04] LABS: INTERNATIONAL NORM RATIO 1.3 (0.9-1.1); Prothrombin Time 16.1 SEC (11.1-13.3)
[2023-08-22 13:06] LABS: Partial Thromboplastin Time 37.2 SEC (26.0-36.8)
[2023-08-22 13:18] LABS: Carbon Dioxide 35 mmol/L (22-29); Chloride 95 mmol/L (96-108); Sodium 144 mmol/L (135-145)
[2023-08-22 13:19] LABS: Alanine Aminotransferase 19 U/L (0-40); Albumin Level 3.9 g/dL (3.5-5.0); Alkaline Phosphatase 134 U/L (39-117); Anion Gap 17 (12-20); Aspartate Amino Transferase 49 U/L (5-37); Bilirubin Total 0.9 mg/dL (0.0-1.0); Blood Urea Nitrogen 11 mg/dL (9-16); Creatinine Clr Calc Pharmacy 130.5; Estimated Glomerular Filt Rate > 60; Ethanol 84 mg/dL; Glucose Random 127 mg/dL (60-115); Total Protein 7.5 g/dL (6.5-8.0)
[2023-08-22 13:21] LABS: Troponin-I High Sensitivity 4.9 ng/L (<3.5-35.0)
[2023-08-22 13:28] LABS: Magnesium 1.2 mg/dL (1.6-2.6)
[2023-08-22] MEDS: Diphth,Pertus(ACell),Tet Adult 0.5 ML SYRINGE IM (15:05)
[2023-08-22 15:07] VITALS: BP 125/74; PULSE 82; RESP 16; TEMP 36.7; O2SAT 95
[2023-08-22] MEDS: Magnesium Sulfate/H2O 2 GM/50 ML PIGGYBACK IV (15:09)
[2023-08-22] MEDS: Potassium Chloride Packet 20 MEQ PACKET 40 MEQ PO (15:19)
--- NOTE | 2023-08-22 15:36 | PC.NURSE ---
a&ox4. vss and up to date. nsr on the radiation monitor. pt presents to the ED s/p unwitnessed fall at home this past wednesday. pt verbalizing he fell at home/tripped cut his leg on a blade in his garage. pt also hit the left side of his head. -loc. +thinners. laceration/bruising noted to left side of face. laceration noted to pt's LLE - bleeding currently controlled/wrapped w/ gauze/elvis bandage. per pt - pt has had nonstop bleeding since the incident. 20gIV placed in the left forearm - medication administered per provider order. provider questioning pt if he consumes alcohol daily - pt admits to drinking 6 beers and some nips each day about 4 times per week. CIWA = 9. provider notified/aware. pt aware that he is pending admission to the hospital. pt resting in bed in no apparent distress. no sob/wob noted. respirations even/unlabored. plan of care ongoing. call avalos placed within reach.
--- NOTE | 2023-08-22 15:40 | PM.IMHP ---
History of Present Illness Date of Service: 08/22/23 Chief Complaint: bleeding laceration 53M PMH etoh dependence with AFLD, opiate dependence on suboxone, copd, pafib, htn, mood disorder, hfref, presented with bleeder LLE laceration. patient reports fall 5 days ptp. he is on eliquis for afib. he hit head without loc and lacerated LLE, he tried to manage himself, but wound kept bleeding so he came to ED. in ED, wound was wrapped, noted to have low magnesium, low potassium, started to have withdrawal symptoms. Review of Systems Review of Systems: Yes all other systems are reviewed and are negative [facility] Medical History Tubular adenoma Tariq's esophagus determined by biopsy GERD (gastroesophageal reflux disease) Chronic idiopathic constipation Hx of opioid abuse Obesity Hyperlipidemia Asthma Peripheral neuropathy Hypertension Lower back pain Family History Father No problems noted. Mother Chronic a-fib Sister Chronic a-fib Surgical History S/P cardiac cath Hx of colonoscopy History of esophagogastroduodenoscopy (EGD) History of back surgery Social History Household Members: Spouse Housing: Apartment Do you presently have visiting nurse or other home services: No Alcohol intake: current Alcohol intake frequency: does not drink Alcohol type: beer Patient Tobacco Use Status: Current everyday Tobacco user Tobacco use type: Cigarette Cigarette Packs Per Day: 0.5 Cigarettes Per Day: 10.0 e-Cigarette/Vaping Use: Never Used Second Hand Smoke Exposure: Yes Advance Directives: Yes Advance Directives on File: Yes Advance Directives Date on File: 07/28/22 Do you have a plan to hurt others: No Plan service: No Current occupational status: disabled Cognitive needs: No Hearing needs: No Vision needs: No Meds Allergies Allergy/AdvReac Type Severity Reaction Status Date / Time morphine Allergy Severe Anaphylaxis Verified 08/22/23 12:19 acetaminophen [From Tylenol] Allergy Intermediate Gastrointestinal Verified 08/22/23 12:19 Upset Active Medications: Current Medications Calcium Carbonate (Calcium Carbonate 750 Mg Tab.Chew) 750 mg PO Q4H PRN PRN Reason: Heartburn Magnesium Sulfate (Magnesium Sulfate/H2o) 2 gm in 50 mls @ 25 mls/hr IV ONCE ONE Stop: 08/22/23 17:02 Last Admin: 08/22/23 15:09 Dose: 25 mls/hr Magnesium Hydroxide (Milk Of Magnesia 30 Ml Oral.Susp) 30 ml PO DAILY PRN PRN Reason: Constipation Melatonin (Melatonin 3 Mg Tablet) 6 mg PO BEDTIME PRN PRN Reason: Insomnia Pharmacy Consult (Consult Rx Etoh Phenob Im/Po) 1 each MISCELLANE ONCE PRN; Protocol PRN Reason: Consult order Pharmacy Consult (Consult Rx Etoh Phenob Im/Po) 1 each MISCELLANE ONCE PRN; Protocol PRN Reason: Consult order Sodium Chloride (0.9 % Sodium Chloride Flush 3 Ml Syringe) 3 ml IVFLUSH QSHIFT [facility] Home Medications ?Medication ?Instructions ?Recorded ?Confirmed ?Last Taken ?Type buprenorphine 8 mg-naloxone 2 mg 1 tab sublingual TID 08/15/20 12/01/22 11/12/22 07:30 History sublingual tablet albuterol sulfate 90 mcg/actuation 90 mcg inhalation Q4-6H PRN 05/29/22 12/01/22 11/12/22 07:30 History aerosol inhaler (Ventolin HFA) Shortness Of Breath Or Wheezing fluticasone fur. 200 mcg-umeclid 1 ea inhalation DAILY 07/24/22 12/01/22 11/12/22 07:30 History 62.5 mcg-vilant 25 mcg inhalat.powder (Trelegy Ellipta) multivitamin 1 tab PO DAILY 07/24/22 12/01/22 07/23/22 History flecainide 50 mg tablet 50 mg PO BID 08/16/23 Unknown History Physical Exam Vital Signs and Narrative: Vital Signs: Last Vital Signs Temp 98.0 F 08/22/23 15:07 Pulse 82 08/22/23 15:07 Resp 16 08/22/23 15:07 BP 125/74 08/22/23 15:07 Pulse Ox 95 08/22/23 15:07 O2 Del Method Room Air 08/22/23 15:07 BMI result Body Mass Index 23.7 General: AO X 3, no acute distress, jittery, left eye echymosis Resp: diminished bilateral, no accessory muscles used CVS: S1,S2,RRR GI: soft, non tender, non distended Neuro: motor grossly intact, alert Psych: appropriate affect, appropriate insight lle laceration wrapped Results Labs 08/22/23 12:53 08/22/23 12:53 Labs: Laboratory Results - last 24 hr 08/22/23 12:53 MCV 102.0 H MCH 36.3 H MCHC 35.6 RDW 13.2 Plt Count 91 L MPV 9.6 Immature Gran % (Auto) 0.4 Neut % (Auto) 54.7 Lymph % (Auto) 33.6 Wolfe % (Auto) 8.9 Eos % (Auto) 1.3 Baso % (Auto) 1.1 Lymph # (Auto) 1.6 Wolfe # (Auto) 0.4 Eos # (Auto) 0.1 Baso # (Auto) 0.1 Abs Immat Gran (auto) 0.02 Absolute Neuts (auto) 2.6 Absolute Nucleated RBC 0.000 Nucleated RBC % (auto) 0.0 PT 16.1 H INR 1.3 H APTT 37.2 H Anion Gap 17 Estim Creat Clear Calc 130.5 Estimated GFR > 60 Random Glucose 127 H Calcium 9.0 Magnesium 1.2 L* Total Bilirubin 0.9 AST 49 H ALT 19 Alkaline Phosphatase 134 H Troponin I High Sens 4.9 D Total Protein 7.5 Albumin 3.9 Ethyl Alcohol 84 Imaging Radiologist's Impressions: Impressions Tibia/Fibula X-Ray 08/22/23 12:41 IMPRESSION: No fracture or foreign body seen. Cervical Spine CT 08/22/23 12:52 IMPRESSION: No fracture or dislocation. Curvature of the cervicothoracic spine and degenerative changes. Emphysema. Mixed cystic and reticular area in the left lung apex. Follow-up chest CT recommended. Fleischner guidelines were followed. Head CT 08/22/23 12:52 IMPRESSION: No acute intracranial pathology. Assessment and Plan (1) Laceration of left leg: Status: Acute Plan 53M PMH etoh dependence with AFLD, opiate dependence on suboxone, copd, pafib, htn, mood disorder, hfref, presented with bleeder LLE laceration. patient reports fall 5 days ptp fall with lle laceration no head trauma on ct, keep wrapped etoh dependence with afld and withdrawal phenobarb , ciwa acute hypomagnesemia and acute hypokalemia Replace and monitor Paroxysmal atrial fibrillation Continue metoprolol and Eliquis and diltiazem COPD Is stable Mood disorder Continue Celexa, Klonopin Opiate dependence Suboxone DVT prophylaxis-on Eliquis Full code Patient in significant withdrawal and with severe hypomagnesemia therefore expected require at least 2 midnights inpatient Quality Stroke Does the patient have a stroke diagnosis?: No VTE Prior VTE?: No VTE Risk Level:: Medical - moderate - high VTE Device Contraindication: Treatment Not Indicated VTE Drug Contraindication: N/A - Med Ordered
[2023-08-22] MEDS: PHENobarbitaL sodium 130 MG/ML IM ONCE 311 MG IM (15:54)
[2023-08-22 16:00] VITALS: BP 121/76; PULSE 84; RESP 12; TEMP 37.6; O2SAT 88
[2023-08-22] MEDS: Magnesium Oxide 400 MG TABLET 800 MG PO ×2 (16:04→21:16)
--- NOTE | 2023-08-22 16:08 | PHA.MEDREC ---
Pharmacy Consult ? Medication Reconciliation Pharmacy has completed the medication reconciliation. spoke with patient to confirm medications. He had a list from home which matches claim history. Only medication missing was sucralfate which he could not remember. Kept on home list since he has recent fills for it. He confirmed he is not longer taking HCTZ or lisinopril, stopped taking a few months ago. He confirmed he took his suboxone, eliquis, and metoprolol this morning. He stated he took all his morning medications but was only verbalized those ones.
[2023-08-22 19:32] VITALS: BP 135/83; PULSE 82; RESP 17; TEMP 37.1; O2SAT 92
[2023-08-22] MEDS: PHENobarbitaL sodium 130 MG/ML VIAL IM Q3Hx2 234 MG IM ×2 (19:36→22:37)
--- NOTE | 2023-08-22 19:38 | PC.NURSE ---
this rn assumed care of pt, pt a&ox4, respirations even and unlabored. pt ambulated to bathroom with steady gait at this time. pt CIWA=4, pt medicated per apr. pt noted to be tremulous at this time, denies other symptoms. vss. normal sinus on tele 80-84bpm.
[2023-08-22 21:14] VITALS: BP 135/77; PULSE 85
[2023-08-22] MEDS: bisacodyL 5 MG TABLET.DR 10 MG PO (21:14)
[2023-08-22] MEDS: Atorvastatin Calcium 20 MG TABLET PO (21:14)
[2023-08-22] MEDS: Metoprolol Tartrate 100 MG TABLET PO (21:14)
[2023-08-22] MEDS: Apixaban 5 MG TABLET PO (21:14)
[2023-08-22] MEDS: Flecainide Acetate 50 MG TABLET PO (21:16)
[2023-08-22] MEDS: Buprenorphine/Naloxone 8/2 mg TAB.SUBL 1 TAB SUBLINGUAL (21:16)
[2023-08-22 21:56] VITALS: BMI 23.8
[2023-08-22 22:36] VITALS: BP 145/84; PULSE 73; RESP 18; TEMP 36.2; O2SAT 93
[2023-08-23] VITALS (8 sets, daily range): BP systolic 111–151; BP diastolic 74–97; PULSE 82–111; RESP 16–18; TEMP 35.8–36.4; O2SAT 93–96
[2023-08-23] MEDS: Omeprazole 20 MG CAPSULE.DR PO (05:44)
--- NOTE | 2023-08-23 05:48 | PC.NURSE ---
Received from ED to room 458 via stretcher.Aox4.Oriented to surrounding, camera and call avalos.Plan of care discussed with patient. Verbalized understanding.Fall precaution initiated.
[2023-08-23 07:49] LABS: PLT CLUMP 1
[2023-08-23 07:50] LABS: Hematocrit 42.1 % (42.0-52.0); Hemoglobin 15.3 g/dl (14.0-18.0); Mean Corpuscular HGB Conc 36.3 g/dl (31.0-36.0); Mean Corpuscular Hemoglobin 36.6 pg (27.0-33.0); Mean Corpuscular Volume 100.7 fL (80.0-98.0); Mean Platelet Volume 9.8 fL (9.4-12.4); Red Blood Count 4.18 X10*6/uL (4.60-5.80); Red Cell Distribution Width 12.8 % (11.0-16.0)
[2023-08-23 07:55] LABS: Platelet Count 79 X10*3/uL (160-400); White Blood Count 4.6 X10*3/uL (4.8-10.8)
[2023-08-23 07:57] LABS: INTERNATIONAL NORM RATIO 1.2 (0.9-1.1); Prothrombin Time 14.8 SEC (11.1-13.3)
[2023-08-23 08:25] LABS: Alanine Aminotransferase 17 U/L (0-40); Albumin Level 3.5 g/dL (3.5-5.0); Alkaline Phosphatase 134 U/L (39-117); Anion Gap 14 (12-20); Aspartate Amino Transferase 47 U/L (5-37); Bilirubin Direct 0.7 mg/dL (0.0-0.5); Bilirubin Total 1.7 mg/dL (0.0-1.0); Blood Urea Nitrogen 8 mg/dL (9-16); Calcium 8.9 mg/dL (8.4-10.2); Carbon Dioxide 36 mmol/L (22-29); Chloride 92 mmol/L (96-108); Creatinine Clr Calc Pharmacy 151.9; Estimated Glomerular Filt Rate > 60; Glucose Fasting 97 mg/dL (60-99); Magnesium 1.5 mg/dL (1.6-2.6); Potassium 2.7 mmol/L (3.3-5.1); Sodium 139 mmol/L (135-145)
[2023-08-23] MEDS: Multivitamin TABLET 1 TAB PO (08:32)
[2023-08-23] MEDS: Furosemide 20 MG TABLET PO (08:33)
[2023-08-23] MEDS: PHENobarbitaL 30 MG TABLET 60 MG PO ×2 (08:33→20:54)
[2023-08-23] MEDS: Magnesium Oxide 400 MG TABLET 800 MG PO ×3 (08:33→20:54)
[2023-08-23] MEDS: dilTIAZem HCL CD 300 MG CAP.ER.24H PO (08:34)
[2023-08-23] MEDS: Escitalopram Oxalate 10 MG TABLET PO (08:34)
[2023-08-23] MEDS: Apixaban 5 MG TABLET PO ×2 (08:34→20:53)
[2023-08-23] MEDS: Metoprolol Tartrate 100 MG TABLET PO ×2 (08:34→20:54)
[2023-08-23] MEDS: Buprenorphine/Naloxone 8/2 mg TAB.SUBL 1 TAB SUBLINGUAL ×3 (08:34→20:54)
[2023-08-23] MEDS: Flecainide Acetate 50 MG TABLET PO ×2 (08:34→20:53)
[2023-08-23] MEDS: Sucralfate 1 GM TABLET PO (08:34)
[2023-08-23] MEDS: 0.9 % Sodium Chloride Flush 3 ML SYRINGE IVFLUSH ×2 (08:35→15:42)
[2023-08-23] MEDS: Potassium Chloride ER 20 MEQ TAB.ER.PRT 40 MEQ PO ×2 (10:42→17:25)
[2023-08-23] MEDS: Magnesium Sulfate/H2O 2 GM/50 ML PIGGYBACK IV (10:43)
--- NOTE | 2023-08-23 10:57 | P.PNIM_ITS ---
Subjective Subjective Date of Service: 08/23/23 Interval History: anxious Physical Exam 2 Vital Signs: Vital Signs: Last Vital Signs Temp 97 F 08/23/23 07:58 Pulse 111 H 08/23/23 08:34 Resp 16 08/23/23 07:58 BP 147/87 H 08/23/23 08:34 Pulse Ox 93 08/23/23 07:58 O2 Del Method Room Air 08/23/23 07:58 BMI result Body Mass Index 23.8 General: AO X 3, no acute distress, tramulous, anxious Resp: CTA bilateral, no accessory muscles used CVS: S1,S2,RRR GI: soft, non tender, non distended Neuro: motor grossly intact, alert Psych: appropriate affect, appropriate insight Objective Data Active Medications Albuterol Sulfate (Albuterol Sulfate 90 Mcg 8 Gm Inhaler) 1 puff INHALE Q4H PRN PRN Reason: Shortness Of Breath Or Wheezin Apixaban (Apixaban 5 Mg Tablet) 5 mg PO BID [facility] Last Admin: 08/23/23 08:34 Dose: 5 mg Documented By: GERALD Atorvastatin Calcium (Atorvastatin Calcium 20 Mg Tablet) 20 mg PO BEDTIME [facility] Last Admin: 08/22/23 21:14 Dose: 20 mg Documented By: LUCINDA Bisacodyl (Bisacodyl 5 Mg Tablet.Dr) 10 mg PO BEDTIME [facility] Last Admin: 08/22/23 21:14 Dose: 10 mg Documented By: LUCINDA Buprenorphine/Naloxone (Buprenorphine/Naloxone 8/2 Mg Tab.Subl) 1 tab SUBLINGUAL TID [facility] Last Admin: 08/23/23 08:34 Dose: 1 tab Documented By: GERALD Calcium Carbonate (Calcium Carbonate 750 Mg Tab.Chew) 750 mg PO Q4H PRN PRN Reason: Heartburn Clonazepam (Clonazepam 1 Mg Tablet) 1 mg PO BID PRN PRN Reason: Anxiety Diltiazem HCl (Diltiazem Hcl Cd 300 Mg Cap.Er.24h) 300 mg PO DAILY [facility]; Protocol Last Admin: 08/23/23 08:34 Dose: 300 mg Documented By: GERALD Escitalopram Oxalate (Escitalopram Oxalate 10 Mg Tablet) 10 mg PO DAILY [facility] Last Admin: 08/23/23 08:34 Dose: 10 mg Documented By: GERALD Flecainide Acetate (Flecainide Acetate 50 Mg Tablet) 50 mg PO BID [facility] Last Admin: 08/23/23 08:34 Dose: 50 mg Documented By: GERALD Fluticasone/Umeclidinium/Vilanterol (Fluticasone/Umeclidinium/Vilanterol 200/62.5/25 Blst.W.Dev) 1 puff INHALE DAILY [facility] Furosemide (Furosemide 20 Mg Tablet) 20 mg PO DAILY [facility]; Protocol Last Admin: 08/23/23 08:33 Dose: 20 mg Documented By: GERALD Magnesium Sulfate (Magnesium Sulfate/H2o) 2 gm in 50 mls @ 25 mls/hr IV ONCE ONE Stop: 08/23/23 11:23 Last Admin: 08/23/23 10:43 Dose: 25 mls/hr Documented By: GREALD Magnesium Hydroxide (Milk Of Magnesia 30 Ml Oral.Susp) 30 ml PO DAILY PRN PRN Reason: Constipation Magnesium Oxide (Magnesium Oxide 400 Mg Tablet) 800 mg PO TID [facility] Last Admin: 08/23/23 08:33 Dose: 800 mg Documented By: GERALD Melatonin (Melatonin 3 Mg Tablet) 6 mg PO BEDTIME PRN PRN Reason: Insomnia Metoprolol Tartrate (Metoprolol Tartrate 100 Mg Tablet) 100 mg PO BID [facility]; Protocol Last Admin: 08/23/23 08:34 Dose: 100 mg Documented By: GERALD Multivitamins/Vitamin C (Multivitamin Tablet) 1 tab PO DAILY [facility] Last Admin: 08/23/23 08:32 Dose: 1 tab Documented By: GERALD Omeprazole (Omeprazole 20 Mg Capsule.) 20 mg PO DAILY@0630 [facility] Last Admin: 08/23/23 05:44 Dose: 20 mg Documented By: LUCINDA Pharmacy Consult (Consult Rx Etoh Phenob Im/Po) 1 each MISCELLANE ONCE PRN; Protocol PRN Reason: Consult order Phenobarbital (Phenobarbital 30 Mg Tablet) 60 mg PO BID [facility] Stop: 08/24/23 21:01 Last Admin: 08/23/23 08:33 Dose: 60 mg Documented By: GERALD Phenobarbital (Phenobarbital 30 Mg Tablet) 30 mg PO BID [facility] Stop: 08/26/23 21:01 Phenobarbital (Phenobarbital 30 Mg Tablet) 30 mg PO DAILY [facility] Stop: 08/28/23 09:01 Potassium Chloride (Potassium Chloride Er 20 Meq Tab.Er.Prt) 40 meq PO ONCE ONE Stop: 08/23/23 18:01 Sodium Chloride (0.9 % Sodium Chloride Flush 3 Ml Syringe) 3 ml IVFLUSH QSHIFT [facility] Last Admin: 08/23/23 08:35 Dose: 3 ml Documented By: GERALD Sucralfate (Sucralfate 1 Gm Tablet) 1 gm PO DAILY [facility] Last Admin: 08/23/23 08:34 Dose: 1 gm Documented By: GERALD Labs 08/23/23 07:03 08/23/23 07:03 Labs: Laboratory Results - last 24 hr 08/22/23 08/23/23 12:53 07:03 MCV 102.0 H 100.7 H MCH 36.3 H 36.6 H MCHC 35.6 36.3 H RDW 13.2 12.8 Plt Count 91 L 79 L MPV 9.6 9.8 Immature Gran % (Auto) 0.4 Neut % (Auto) 54.7 Lymph % (Auto) 33.6 Woodward % (Auto) 8.9 Eos % (Auto) 1.3 Baso % (Auto) 1.1 Lymph # (Auto) 1.6 [place]ward # (Auto) 0.4 Eos # (Auto) 0.1 Baso # (Auto) 0.1 Abs Immat Gran (auto) 0.02 Absolute Neuts (auto) 2.6 Absolute Nucleated RBC 0.000 0.000 Nucleated RBC % (auto) 0.0 0.0 PT 16.1 H 14.8 H INR 1.3 H 1.2 H APTT 37.2 H Anion Gap 17 14 Estim Creat Clear Calc 130.5 151.9 Estimated GFR > 60 > 60 Random Glucose 127 H Fasting Glucose 97 Calcium 9.0 8.9 Magnesium 1.2 L* 1.5 L Total Bilirubin 0.9 1.7 H Direct Bilirubin 0.7 H AST 49 H 47 H ALT 19 17 Alkaline Phosphatase 134 H 134 H Troponin I High Sens 4.9 D Total Protein 7.5 7.0 Albumin 3.9 3.5 Ethyl Alcohol 84 Assessment and Plan (1) Alcohol withdrawal: Status: Acute Plan 53M PMH etoh dependence with AFLD, opiate dependence on suboxone, copd, pafib, htn, mood disorder, hfref, presented with bleeder LLE laceration. patient reports fall 5 days ptp fall with lle laceration no head trauma on ct, keep wrapped, no further bleeding etoh dependence with afld and withdrawal phenobarb , ciwa acute hypomagnesemia and acute hypokalemia Replace and monitor Paroxysmal atrial fibrillation Continue metoprolol and Eliquis and diltiazem COPD Is stable Mood disorder Continue Celexa, Klonopin Opiate dependence Suboxone DVT prophylaxis-on Eliquis Full code reason for continued hospitalization:electrolyte abnormalities, ongoing etoh withdrawal Quality Stroke Does the patient have a stroke diagnosis?: No VTE Prior VTE?: No VTE Risk Level:: Medical - moderate - high VTE Device Contraindication: Treatment Not Indicated VTE Drug Contraindication: N/A - Med Ordered
[2023-08-23] MEDS: Albuterol Sulfate 90 MCG 8 GM INHALER 1 PUFF INHALE (14:12)
--- NOTE | 2023-08-23 15:08 | MHC.CM.PN ---
IMM 08/23/23 Male 53 dx lle laceration etoh withdrawal. He states that he lives with family. He is independent with equipment. He uses a cane prn. He also uses a shower bench. He will be seen by the recovery nurse prior to DC DP home self care with community resource info provided by the Recovery nurse. He will arrange foe a ride home.
[2023-08-23] MEDS: Atorvastatin Calcium 20 MG TABLET PO (20:53)
[2023-08-23] MEDS: bisacodyL 5 MG TABLET.DR 10 MG PO (20:53)
[2023-08-23] MEDS: Melatonin 3 MG TABLET 6 MG PO (21:03)
[2023-08-23] MEDS: clonazePAM 1 MG TABLET PO (21:03)
[2023-08-24] MEDS: 0.9 % Sodium Chloride Flush 3 ML SYRINGE IVFLUSH ×2 (01:17→09:00)
[2023-08-24 01:43] VITALS: BP 129/98; PULSE 97; RESP 18; TEMP 36.1; O2SAT 96
[2023-08-24] MEDS: Omeprazole 20 MG CAPSULE.DR PO (05:37)
[2023-08-24 05:43] VITALS: BP 133/91; PULSE 93; RESP 18; TEMP 36.1; O2SAT 96
[2023-08-24 06:54] LABS: Hematocrit 42.8 % (42.0-52.0); Hemoglobin 14.9 g/dl (14.0-18.0); Mean Corpuscular HGB Conc 34.8 g/dl (31.0-36.0); Mean Corpuscular Hemoglobin 35.3 pg (27.0-33.0); Mean Corpuscular Volume 101.4 fL (80.0-98.0); Mean Platelet Volume 10.6 fL (9.4-12.4); Red Blood Count 4.22 X10*6/uL (4.60-5.80); Red Cell Distribution Width 12.2 % (11.0-16.0); White Blood Count 3.9 X10*3/uL (4.8-10.8)
[2023-08-24 06:55] LABS: Platelet Count 77 X10*3/uL (160-400)
[2023-08-24 07:04] LABS: Alanine Aminotransferase 17 U/L (0-40); Albumin Level 3.4 g/dL (3.5-5.0); Alkaline Phosphatase 131 U/L (39-117); Anion Gap 14 (12-20); Aspartate Amino Transferase 49 U/L (5-37); Bilirubin Direct 0.6 mg/dL (0.0-0.5); Bilirubin Total 1.3 mg/dL (0.0-1.0); Blood Urea Nitrogen 12 mg/dL (9-16); Calcium 9.4 mg/dL (8.4-10.2); Carbon Dioxide 33 mmol/L (22-29); Chloride 95 mmol/L (96-108); Creatinine Clr Calc Pharmacy 144.8; Estimated Glomerular Filt Rate > 60; Glucose Fasting 103 mg/dL (60-99); Magnesium 1.7 mg/dL (1.6-2.6); Potassium 3.6 mmol/L (3.3-5.1); Sodium 138 mmol/L (135-145); Total Protein 6.8 g/dL (6.5-8.0)
[2023-08-24 07:09] LABS: INTERNATIONAL NORM RATIO 1.3 (0.9-1.1); Prothrombin Time 15.2 SEC (11.1-13.3)
[2023-08-24 08:00] VITALS: BP 125/86; PULSE 95; RESP 19; TEMP 36; O2SAT 97
[2023-08-24 08:59] VITALS: BP 125/56; PULSE 108
[2023-08-24] MEDS: Apixaban 5 MG TABLET PO (08:59)
[2023-08-24] MEDS: PHENobarbitaL 30 MG TABLET 60 MG PO (08:59)
[2023-08-24] MEDS: Multivitamin TABLET 1 TAB PO (08:59)
[2023-08-24] MEDS: Metoprolol Tartrate 100 MG TABLET PO (08:59)
[2023-08-24] MEDS: Flecainide Acetate 50 MG TABLET PO (08:59)
[2023-08-24 09:00] VITALS: BP 125/56; PULSE 108
[2023-08-24] MEDS: Sucralfate 1 GM TABLET PO (09:00)
[2023-08-24] MEDS: Furosemide 20 MG TABLET PO (09:00)
[2023-08-24] MEDS: Magnesium Oxide 400 MG TABLET 800 MG PO (09:00)
[2023-08-24] MEDS: dilTIAZem HCL CD 300 MG CAP.ER.24H PO (09:00)
[2023-08-24] MEDS: Buprenorphine/Naloxone 8/2 mg TAB.SUBL 1 TAB SUBLINGUAL (09:00)
[2023-08-24] MEDS: Escitalopram Oxalate 10 MG TABLET PO (09:00)
--- NOTE | 2023-08-24 09:00 | P.DS_ITS ---
DS: Providers Provider Date of Service: 08/24/23 Date of admission: 08/22/23 15:37 Primary care physician: Nino Daniel MD DS: Diagnosis Discharge Diagnosis (1) Alcohol withdrawal: Status: Acute DS: Summary Hospital Course Hospital Course: from initial hpi: 53M PMH etoh dependence with AFLD, opiate dependence on suboxone, copd, pafib, htn, mood disorder, hfref, presented with bleeder LLE laceration. patient reports fall 5 days ptp. he is on eliquis for afib. he hit head without loc and lacerated LLE, he tried to manage himself, but wound kept bleeding so he came to ED. in ED, wound was wrapped, noted to have low magnesium, low potassium, started to have withdrawal symptoms. hospital course: Patient was admitted due to fall with left lower extremity bleeding laceration, his laceration was wrapped and bleeding stopped. Trauma workup was negative. For alcohol dependence with acute withdrawal and alcoholic fatty liver disease he was treated with phenobarbital and withdrawal symptoms resolved. Patient was educated on alcohol avoidance. Course complicated by acute hypomagnesemia and hypokalemia which was replaced. He will continue on magnesium supplements as outpatient. For paroxysmal atrial fibrillation was continue metoprolol, Eliquis, diltiazem. COPD remained stable. For mood disorder was continued on Celexa and Klonopin. For opiate dependence he was continued on Suboxone. Patient is feeling better will be discharged home. Time Attestation Discharge Coordination Time (in mins): 33 Quality: Safe Use of Opioids Does Pt have an Active Cancer Diagnosis on the Problem List?: No Quality: Stroke Does the patient have a stroke diagnosis?: No Physical Exam Vital Signs: Vital Signs: Last Vital Signs Temp 96.8 F 08/24/23 08:00 Pulse 95 08/24/23 08:00 Resp 19 08/24/23 08:00 BP 125/86 08/24/23 08:00 Pulse Ox 97 08/24/23 08:00 O2 Del Method Room Air 08/24/23 08:00 BMI result Body Mass Index 23.8 General: AO X 3, no acute distress, echymosis over left eye, lle laceration wrapped Resp: CTA bilateral, no accessory muscles used CVS: S1,S2,RRR GI: soft, non tender, non distended Neuro: motor grossly intact, alert Psych: appropriate affect, appropriate insight DS: Data Data Completed and Pending Labs on day of discharge: Laboratory Results - last 24 hr 08/24/23 06:29 WBC 3.9 L RBC 4.22 L Hgb 14.9 Hct 42.8 MCV 101.4 H MCH 35.3 H MCHC 34.8 RDW 12.2 Plt Count 77 L MPV 10.6 Absolute Nucleated RBC 0.000 Nucleated RBC % (auto) 0.0 PT 15.2 H INR 1.3 H Sodium 138 Potassium 3.6 D Chloride 95 L Carbon Dioxide 33 H Anion Gap 14 BUN 12 Creatinine 0.64 Estim Creat Clear Calc 144.8 Estimated GFR > 60 Fasting Glucose 103 H Calcium 9.4 Magnesium 1.7 Total Bilirubin 1.3 H Direct Bilirubin 0.6 H AST 49 H ALT 17 Alkaline Phosphatase 131 H Total Protein 6.8 Albumin 3.4 L Discharge Plan Discharge Anticipated Discharge Date/Time: 08/24/23 08:58 Patient Disposition: Home, Self-Care Discharge Diagnosis: Alcohol withdrawal, laceration, low magnesium and low potassium Referrals: Nino Daniel MD [Primary Care Provider] - 1 Week Discharge Medications: Continued atorvastatin 20 mg tablet 20 mg PO BEDTIME Qty: 90 3RF furosemide 20 mg tablet 20 mg PO DAILY Qty: 30 6RF sucralfate 1 gram tablet 1 g PO DAILY Qty: 90 3RF Eliquis 5 mg tablet 5 mg PO BID 30 Days Qty: 60 6RF zolpidem [Ambien] 10 mg tablet 10 mg PO BEDTIME PRN (Reason: sleep) Qty: 30 5RF clonazepam [Klonopin] 1 mg tablet 1 mg PO BID PRN (Reason: Anxiety) Qty: 60 0RF metoprolol tartrate 100 mg tablet 100 mg PO BID 90 Days Qty: 180 3RF Rx Instructions: Dose increase diltiazem HCl 300 mg capsule,extended release 24 hr 300 mg PO DAILY 90 Days Qty: 90 3RF Motegrity 2 mg tablet 2 mg PO DAILY Qty: 90 2RF citalopram 20 mg tablet 20 mg PO DAILY docusate sodium 100 mg capsule 100 mg PO BEDTIME Trelegy Ellipta 200-62.5-25 mcg blister with device 1 ea inhalation DAILY multivitamin Tablet 1 tab PO DAILY buprenorphine-naloxone 8-2 mg tablet, sublingual 1 tab sublingual TID Patient Comments: TOOK HALF A FILM THIS AM albuterol sulfate [Ventolin HFA] 90 mcg/actuation HFA aerosol inhaler 90 mcg inhalation Q4-6H PRN (Reason: Shortness Of Breath Or Wheezing) flecainide 50 mg tablet 50 mg PO BID magnesium oxide 400 mg magnesium capsule 400 mg PO DAILY Qty: 90 2RF bisacodyl [Dulcolax (bisacodyl)] 5 mg tablet,delayed release (DR/EC) 10 mg PO BEDTIME Qty: 180 4RF pantoprazole 40 mg tablet,delayed release (DR/EC) 40 mg PO DAILY@0630 Qty: 30 2RF Rx Instructions: take one tablet half an hour before breakfast Discharge Orders: Discharge Order (Routine); Ordered 08/24/23 Ordered By: Raúl Mitchell Diet: No alcohol Activity on Discharge: As tolerated Stand Alone Forms: Patient Portal Discharge page Print Language: Citizen Of [place] Care Plan Goals: Recovery Health Concerns: Low electrolytes, alcohol Plan of Treatment: Avoid alcoholic, take electrolyte supplements Assessment: See above
[2023-08-24] MEDS: Albuterol Sulfate 90 MCG 8 GM INHALER 1 PUFF INHALE (09:03)
[2023-08-24] MEDS: Fluticasone/Umeclidinium/Vilanterol 200/62.5/25 BLST.W.DEV 1 PUFF INHALE (09:03)
--- NOTE | 2023-08-24 09:35 | HO.WOUND ---
Wound Consult: Initial 53yr old?[place] [facility] - See progress notes and H&P for detailed history.? Wound consult placed for LLE Wound prior to d/c.? Patient agreeable to assessment and photo documentation.? Left Lateral Leg Left Knee Etiology: ?Laceration / Abrasion ?s/p fall at home Wound Bed: knee is dry scab in place and lateral leg has two healing laceration sites - both well approximated no hematoma suspected no induration no fluctuance and no warmth noted Drainage / Odor: None Edges: ? well approximated Sanaz wound: Intact ? No Induration, Fluctuance or Warmth noted Pain: Denies Goals of Treatment: ? Cover for protection from trauma and friction until fully healed Recommendations: 1. Left Knee and Left Lateral Leg - Cleanse with soap and water, pat dry. Cover with silicone based foam dressing and or light adhesive dressing to protect skin while it continues to heal. Change every 3 days and as needed.
--- NOTE | 2023-08-24 09:36 | MHC.CM.PN ---
Patient has been medically cleared for dc to home today, self care. Last IMM addressed yesterday.
== END 2023-08-24 10:47 | disposition home or self-care (01) | DRG 897 ==
LOC: HO.ED 15:36 → HO.EDOVER 15:41 → HO.IMC 19:50
PROVIDERS: Physician Assistant; Admitting Provider Internal Medicine; Emergency Provider Emergency Medicine; PCP Internal Medicine; Visit Provider Internal Medicine
DX: F10.239 Alcohol dependence with withdrawal, unspecified (principal); F11.20 Opioid dependence, uncomplicated; S81.812A Laceration without foreign body, left lower leg, initial encounter; F39 Unspecified mood [affective] disorder; K70.0 Alcoholic fatty liver; I48.0 Paroxysmal atrial fibrillation; J44.9 Chronic obstructive pulmonary disease, unspecified; W19.XXXA Unspecified fall, initial encounter; Y90.4 Blood alcohol level of 80-99 mg/100 ml; E83.42 Hypomagnesemia; E87.6 Hypokalemia; F17.210 Nicotine dependence, cigarettes, uncomplicated; Z71.6 Tobacco abuse counseling; Z79.01 Long term (current) use of anticoagulants; Z79.899 Other long term (current) drug therapy
CPT/HCPCS: 36415; 70450; 71045; 72125; 73590; 80048; 80053; 80076; 80307; 83735; 84484; 85025; 85027; 85610; 85730; 90715; 93005; 99285; J2560; J3475

== ENCOUNTER → 2023-08-22 12:05 | Outpatient (BNV) | payer MEDICARE, MEDICAID, SELFPAY | PROVIDERS: Admitting Provider Internal Medicine; Emergency Provider Emergency Medicine; PCP Internal Medicine; Visit Provider Internal Medicine Cardiovascular Disease | DX: I48.91 Unspecified atrial fibrillation (principal) | CPT/HCPCS: 93010 ==

== ENCOUNTER → 2023-08-22 15:37 | Outpatient (BNV) | payer MEDICARE, MEDICAID, SELFPAY | PROVIDERS: Admitting Provider Internal Medicine; Emergency Provider Emergency Medicine; PCP Internal Medicine; Visit Provider Internal Medicine | DX: F10.939 Alcohol use, unspecified with withdrawal, unspecified (principal); S81.812A Laceration without foreign body, left lower leg, initial encounter; W19.XXXA Unspecified fall, initial encounter; E83.42 Hypomagnesemia | CPT/HCPCS: 99222; 99232; 99239 ==

== ENCOUNTER 2023-09-07 11:30 | Outpatient (AMB) | payer MEDICARE, MEDICAID, SELFPAY ==
--- NOTE | 2023-09-07 11:30 | A.OFFVIS_ITS ---
Vital Signs 09/07/23 11:39 Weight 180 lb 5.41 oz BP 90/53 L Blood Pressure Location Rt brachial Position Sitting Pulse 102 H Intake Visit Reasons: Umbilical hernia Intake Note: Patient referred by Sherry BEAR for umbilical hernia. First noticed over 1yr. Patient c/o: feels uncomfortable. Constipation. Taking stool softner. Buggy Loader Required: No Accompanied by: Self / Same As Patient Allergies morphine Allergy (Severe, Verified 08/22/23 12:19) Anaphylaxis acetaminophen [From Tylenol] Allergy (Intermediate, Verified 08/22/23 12:19) Gastrointestinal Upset HPI Comments Details: Patient presents for evaluation of a symptomatic umbilical hernia. He has had this over 3 years time. His increasing in size and becoming more bothersome. He would like to have it repaired. He has no other GI issues or complaints. He has tolerating a diet. Having regular bowel habits. Patient was followed here for atrial fibrillation but is now going to the [facility] for this. He is on Eliquis. 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 Mother Chronic a-fib Sister Chronic a-fib Social History Household Members: Friend(s) Housing: House Do you presently have visiting nurse or other home services: No Alcohol intake: current Alcohol intake frequency: 3 or more drinks per day Alcohol type: beer and hard liquor Patient Tobacco Use Status: Current everyday Tobacco user Tobacco use type: Cigarette Cigarette Packs Per Day: 0.5 Cigarettes Per Day: 10.0 e-Cigarette/Vaping Use: Never Used Second Hand Smoke Exposure: Yes Advance Directives Date on File: 07/28/22 service: No Current occupational status: disabled Cognitive needs: No Hearing needs: No Vision needs: No Physical Exam Vital Signs: Last Vital Signs Pulse 102 H 09/07/23 11:39 BP 90/53 L 09/07/23 11:39 Const Other: Patient had a strong odor of alcohol on his breath in today's visit Chest Other: Chest breath sounds bilaterally, HS 1 in 2, consistent with AFib GI Other: Patient was examined both supine and standing with Valsalva. Bilateral groin exam negative. Genitalia within normal limits. Roughly 2 cm reducible umbilical hernia. Otherwise benign exam. Moderately corpulent abdomen. Assessment & Plan Assessment & Plan (1) Umbilical hernia: Code(s): K42.9 - Umbilical hernia without obstruction or gangrene Category: Surgical Plan Risks, benefits, and alternatives of open umbilical hernia repair with mesh were reviewed with the patient included but not limited to bleeding, infection, recurrence, numbness, pain, scarring, bowel injury and the patient wishes to proceed. All questions answered. We will coordinate with the collection agent regarding Eliquis being held or bridged with heparin prior to the procedure. All questions answered. Coding Level of Care Code New Pt Level 5 (82608) Diagnoses Umbilical hernia K42.9
[2023-09-07 11:39] VITALS: BP 90/53; PULSE 102
== END 2023-09-07 11:44 | disposition home or self-care (01) ==
PROVIDERS: PCP Internal Medicine; Visit Provider Surgery
DX: K42.9 Umbilical hernia without obstruction or gangrene (principal)
CPT/HCPCS: 99204

== ENCOUNTER → 2023-09-07 11:30 | Outpatient (BNVA) | payer MEDICARE, MEDICAID, SELFPAY | PROVIDERS: PCP Internal Medicine; Visit Provider Surgery | DX: K42.9 Umbilical hernia without obstruction or gangrene (principal) | CPT/HCPCS: 99202 ==

== ENCOUNTER 2023-10-12 07:19 | Outpatient (REF) | payer MEDICARE, MEDICAID, SELFPAY ==
[2023-10-12 10:16] LABS: MANUAL DIFF FLAG NO
[2023-10-12 10:44] LABS: Basophils Percent Auto 0.4 % (0-2); Eosinophils Absolute Auto 0.1 X10*3/uL (0.0-0.4); Eosinophils Percent Auto 0.9 % (0-4); Hematocrit 44.3 % (42.0-52.0); Hemoglobin 15.1 g/dl (14.0-18.0); Imm Gran Abs Auto 0.03 X10*3/uL (0.00-0.03); Imm Gran Pct Auto 0.5 % (0.0-0.4); Lymphocytes Absolute Auto 1.1 X10*3/uL (1.2-4.9); Mean Corpuscular HGB Conc 34.1 g/dl (31.0-36.0); Mean Corpuscular Hemoglobin 37.1 pg (27.0-33.0); Mean Corpuscular Volume 108.8 fL (80.0-98.0); Mean Platelet Volume 11.6 fL (9.4-12.4); Monocytes Absolute Auto 0.7 X10*3/uL (0.1-1.2); Monocytes Percent Auto 12.4 % (2-11); Neutrophils Absolute Auto 3.7 x10*3/uL (2.0-8.3); Neutrophils Percent Auto 65.8 % (45-73); Platelet Count 69 X10*3/uL (160-400); Red Blood Count 4.07 X10*6/uL (4.60-5.80); Red Cell Distribution Width 13.1 % (11.0-16.0); White Blood Count 5.6 X10*3/uL (4.8-10.8)
[2023-10-12 10:50] LABS: Iron 79 mcg/dL (45-160); Percent Iron Saturation 34 % (15-50); Total Iron Binding Capacity 233 mcg/dL (228-428); Unsaturated Iron Binding 154 ug/dL
[2023-10-12 10:53] LABS: Alanine Aminotransferase 27 U/L (0-40); Albumin Level 3.4 g/dL (3.5-5.0); Alkaline Phosphatase 170 U/L (39-117); Aspartate Amino Transferase 43 U/L (5-37); Bilirubin Direct 0.8 mg/dL (0.0-0.5); Bilirubin Total 1.5 mg/dL (0.0-1.0); Blood Urea Nitrogen 13 mg/dL (9-16); Calcium 9.2 mg/dL (8.4-10.2); Cholesterol 130 mg/dL (<200); Estimated Glomerular Filt Rate > 60; Glucose Random 112 mg/dL (60-115); HDL Cholesterol 66 mg/dL (>40); LDL Cholesterol Calculated 50 mg/dL (<100); Total Protein 7.1 g/dL (6.5-8.0); Triglycerides 72 mg/dL (<150)
[2023-10-12 11:01] LABS: Anion Gap 10 (12-20)
[2023-10-12 11:13] LABS: Carbon Dioxide 41 mmol/L (22-29); Chloride 90 mmol/L (96-108); Potassium 3.2 mmol/L (3.3-5.1); Sodium 138 mmol/L (135-145)
== END 2023-10-12 07:20 | disposition home or self-care (01) ==
LOC: HO.HMGCLDS 07:19
PROVIDERS: PCP Internal Medicine; Referring Provider Internal Medicine Cardiovascular Disease; Visit Provider Physician Assistant Medical
DX: L60.3 Nail dystrophy (principal); L20.89 Other atopic dermatitis; I48.3 Typical atrial flutter
CPT/HCPCS: 36415; 80048; 80061; 80076; 83540; 85025

== ENCOUNTER 2023-10-20 10:28 | Outpatient (AMB) | payer MEDICARE, MEDICAID, SELFPAY ==
--- NOTE | 2023-10-20 10:29 | MHC.PC.OV ---
Vital Signs 10/20/23 10:31 Height 6 ft Weight 181 lb BMI 24.5 BP 142/94 H Blood Pressure Location Lt brachial Position Sitting Pulse 101 H Pulse Source Pulse Oximeter Pulse Oximetry (%) 89 L Oxygen Delivery Method Room Air Intake Visit Reasons: Follow up Allergies morphine Allergy (Severe, Verified 10/20/23 10:34) Anaphylaxis acetaminophen [From Tylenol] Allergy (Intermediate, Verified 10/20/23 10:34) Gastrointestinal Upset Medication List - Last Reconciled 10/21/23 by Nino Daniel MD albuterol sulfate 90 mcg/actuation (Ventolin HFA) 90 mcg inhalation Q4-6H PRN apixaban (Eliquis) 5 mg PO BID 30 days atorvastatin 20 mg PO BEDTIME bisacodyl (Dulcolax (bisacodyl)) 10 mg (2 x 5 mg) PO BEDTIME buprenorphine-naloxone 8-2 mg 1 tab sublingual TID citalopram 20 mg PO DAILY clonazepam (Klonopin) 1 mg PO BID PRN diltiazem HCl ER 300 mg PO DAILY 90 days docusate sodium 100 mg PO BEDTIME flecainide 50 mg PO BID coyophsvyle-uumpflfxg-lbpubkgn 200-62.5-25 mcg (Trelegy Ellipta) 1 ea inhalation DAILY furosemide 20 mg PO DAILY magnesium oxide 400 mg PO DAILY metoprolol tartrate 100 mg PO BID 90 days multivitamin 1 tab PO DAILY pantoprazole 40 mg PO DAILY@0630 prucalopride (Motegrity) 2 mg PO DAILY sucralfate 1 g PO DAILY zolpidem (Ambien) 10 mg PO BEDTIME PRN Tobacco use date assessed: 10/20/23 Dental Screening Dental Screen Date: 10/20/23 Did you have a dental visit in the last 12 months?: No Did you have a dental problem in the last 6 months where you did not have access to dental care?: No Was dental information given to patient?: Patient has dentist HPI Follow up HPI Details hyperlipidemia hypertension and afib; sees cardiology PFSH Medical History Tubular adenoma Tariq's 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 Mother Chronic a-fib Sister Chronic a-fib Social History Household Members: Friend(s) Housing: House Do you presently have visiting nurse or other home services: No Alcohol intake: current Alcohol intake frequency: 3 or more drinks per day Alcohol type: beer and hard liquor Patient Tobacco Use Status: Current everyday Tobacco user Tobacco use type: Cigarette Cigarette Packs Per Day: 0.5 Cigarettes Per Day: 5 e-Cigarette/Vaping Use: Never Used Second Hand Smoke Exposure: Yes Advance Directives Date on File: 07/28/22 service: No Current occupational status: disabled Cognitive needs: No Hearing needs: No Vision needs: No Questionnaire PHQ-9 Over the last 2 weeks, how often have you been bothered by any of the following problems? 1. Little interest or pleasure in doing things: not at all 2. Feeling down, depressed, or hopeless: not at all 3. Trouble falling or staying asleep, or sleeping too much: not at all 4. Feeling tired or having little energy: not at all 5. Poor appetite or overeating: not at all 6. Feeling bad about yourself - or that you are a failure or have let yourself or your family down: not at all 7. Trouble concentrating on things, such as reading the newspaper or watching television: not at all 8. Moving or speaking so slowly that other people could have noticed. Or the opposite - being so fidgety or restless that you have been moving around a lot more than usual: not at all 9. Thoughts that you would be better off or of hurting yourself in some way: not at all Total score: 0 Depression Screening Interpretation: Negative Depression Screening Done: Yes Source: Developed by Drs. Uzair Napoles, Coretta Bernal, Saul Rseendiz and colleagues, with an educational mabel from [employer]. Thrive Questionnaire Date Thrive assessed: 08/23/23 AUDIT C Alcohol Use Questionnaire (AUDIT-C) 1. How often do you have a drink containing alcohol?: Never Total Score: 0 Score Reviewed/Action Taken: Yes AGUSTÍN-7 AMB Questionnaire AGUSTÍN-7 Date AGUSTÍN - 7 assessed: 10/20/23 Feeling nervous, anxious, or on edge: 0 = Not at all Not being able to stop or control worryin = Not at all Worrying too much about different things: 0 = Not at all Trouble relaxin = Not at all Being so restless that it is hard to sit still: 0 = Not at all Becoming easily annoyed or irritable: 0 = Not at all Feeling afraid as if something awful might happen: 0 = Not at all Total AGUSTÍN-7 score (0-4 normal; 5-9 mild; 10-14 moderate; 15-21 severe): 0 Source: Developed by Drs. Uzair Napoles, Coretta Bernal, Saul Resendiz and colleagues, with an educational mabel from [employer]. Review of Systems Const Denies chills, Denies headache(s) and Denies weight loss ENT Denies headache(s) Card Denies chest pain, Denies syncope, Denies irregular heart rhythm and Denies dyspnea Resp Denies chest congestion, Denies cough and Denies dyspnea GI Denies abdominal pain, Denies change in stool character, Denies nausea and Denies vomiting Musc Denies deformity and Denies joint swelling Neuro Denies syncope and Denies headache(s) Physical exam (Primary Care) Vital Signs: Last Vital Signs Pulse 101 H 10/20/23 10:31 BP 142/94 H 10/20/23 10:31 Pulse Ox 89 L 10/20/23 10:31 Oxygen Delivery Method Room Air 10/20/23 10:31 BMI result Body Mass Index 24.5 Tobacco/Smoking Status: Tobacco use Status Tobacco use date assessed 10/20/23 10/20/23 10:39 Patient Tobacco Use Status Current everyday Tobacco 10/20/23 10:34 Tobacco use type Cigarette 10/20/23 10:34 e-Cigarette/Vaping Use Never Used 10/20/23 10:34 PHQ-9: PHQ-9 Score PHQ-9: Total score 0 10/20/23 10:39 Depression Screening Interpretation: Negative Thrive Assessment: Date of Thrive Assessment Date Thrive assessed 08/23/23 10/20/23 10:34 Const General: cooperative, comfortable, no acute distress and alert Neck Neck: Yes no lymphadenopathy Thyroid: Thyroid normal Resp Effort & Inspection: normal respiratory effort Auscultation: clear to auscultation bilaterally Percussion: percussion normal Cardio Jugular venous distension: no JVD Palpation: normal PMI Rate: regular rate Rhythm: regular rhythm Heart sounds: S1 normal heart sound present and S2 normal heart sound present GI Inspection: Yes normal to inspection Palpation (GI): No hepatosplenomegaly present Skin General skin exam: no rashes or lesions noted Extrem General: Yes no clubbing, cyanosis or edema Assessment and Plan Assessment & Plan (1) Atrial flutter: Code(s): I48.92 - Unspecified atrial flutter Qualifiers: Atrial flutter type: typical Qualified Code(s): I48.3 - Typical atrial flutter Plan: stable; per cardiology (2) Hypertension: Code(s): I10 - Essential (primary) hypertension Plan: stable; same rx (3) Hyperlipidemia: Code(s): E78.5 - Hyperlipidemia, unspecified Plan: stable; same rx Orders: Orders Lipid Panel Today Z13.220 - Encounter for screening for lipoid disorders Comprehensive [place]. Panel Fast Today Z13.9 - Encounter for screening, unspecified Thyroid Stimulating Hormone Today Z13.29 - Encounter for screening for other suspected endocrine disorder Complete Blood Count Auto Diff Today Z13.0 - Encounter for screening for diseases of the blood and blood-forming organs and certain disorders involving the immune mechanism Coding Level of Care Code Est Pt Level 4 (08507) Diagnoses Typical atrial flutter I48.3 Atrial flutter type: typical Hypertension I10 Hyperlipidemia E78.5
[2023-10-20 10:31] VITALS: BP 142/94; PULSE 101; O2SAT 89; BMI 24.5
== END 2023-10-20 10:49 | disposition home or self-care (01) ==
PROVIDERS: PCP Internal Medicine; Visit Provider Internal Medicine
DX: I48.3 Typical atrial flutter (principal); I10 Essential (primary) hypertension; E78.5 Hyperlipidemia, unspecified
CPT/HCPCS: 99214

== ENCOUNTER 2023-12-09 09:01 | Outpatient (AMB) | payer MEDICARE, MEDICAID, SELFPAY ==
[2023-12-09 09:04] VITALS: BP 112/58; PULSE 117; O2SAT 84; BMI 24.1
--- NOTE | 2023-12-09 09:04 | MHC.PC.OV ---
Vital Signs 12/09/23 09:04 Height 6 ft Weight 178 lb BMI 24.1 BP 112/58 L Blood Pressure Location Lt brachial Position Sitting Pulse 117 H Pulse Source Pulse Oximeter Pulse Oximetry (%) 84 L Oxygen Delivery Method Room Air Intake Visit Reasons: [facility] [place] [facility] 12/15 Intake Note: Pt is here for clearance for his procedure on 12/15. Deputy Clerk Required: No Accompanied by: Self / Same As Patient Allergies morphine Allergy (Severe, Verified 12/09/23 09:07) Anaphylaxis acetaminophen [From Tylenol] Allergy (Intermediate, Verified 12/09/23 09:07) Gastrointestinal Upset Medication List - Last Reconciled 12/10/23 by Nino Daniel MD albuterol sulfate 90 mcg/actuation (Ventolin HFA) 90 mcg inhalation Q4-6H PRN apixaban (Eliquis) 5 mg PO BID 30 days atorvastatin 20 mg PO BEDTIME bisacodyl (Dulcolax (bisacodyl)) 10 mg (2 x 5 mg) PO BEDTIME buprenorphine-naloxone 8-2 mg 1 tab sublingual TID citalopram 20 mg PO DAILY clonazepam (Klonopin) 1 mg PO BID PRN diltiazem HCl ER 300 mg PO DAILY 90 days docusate sodium 100 mg PO BEDTIME flecainide 50 mg PO BID aupxadmgelt-wgfxuzurh-fbbtlnlr 200-62.5-25 mcg (Trelegy Ellipta) 1 ea inhalation DAILY furosemide 20 mg PO DAILY magnesium oxide 400 mg PO DAILY metoprolol tartrate 100 mg PO BID 90 days multivitamin 1 tab PO DAILY pantoprazole 40 mg PO DAILY@0630 prucalopride (Motegrity) 2 mg PO DAILY sucralfate 1 g PO DAILY zolpidem (Ambien) 10 mg PO BEDTIME PRN Tobacco use date assessed: 12/09/23 Dental Screening Dental Screen Date: 10/20/23 HPI [facility] [place] [facility] 12/15 HPI Details has afib and will be having a cardioversion. Has substance abuse on Suboxone; hyperlipidemia and hypertension PFSH Medical History Tubular adenoma Tariq's 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 Mother Chronic a-fib Sister Chronic a-fib Social History Household Members: Friend(s) Housing: House Do you presently have visiting nurse or other home services: No Alcohol intake: current Alcohol intake frequency: 3 or more drinks per day Alcohol type: beer and hard liquor Patient Tobacco Use Status: Current everyday Tobacco user Tobacco use type: Cigarette Cigarette Packs Per Day: 0.5 Cigarettes Per Day: 5 e-Cigarette/Vaping Use: Never Used Second Hand Smoke Exposure: Yes Advance Directives Date on File: 07/28/22 service: No Current occupational status: disabled Cognitive needs: No Hearing needs: No Vision needs: No Questionnaire PHQ-9 Over the last 2 weeks, how often have you been bothered by any of the following problems? 1. Little interest or pleasure in doing things: not at all 2. Feeling down, depressed, or hopeless: not at all 3. Trouble falling or staying asleep, or sleeping too much: not at all 4. Feeling tired or having little energy: not at all 5. Poor appetite or overeating: not at all 6. Feeling bad about yourself - or that you are a failure or have let yourself or your family down: not at all 7. Trouble concentrating on things, such as reading the newspaper or watching television: not at all 8. Moving or speaking so slowly that other people could have noticed. Or the opposite - being so fidgety or restless that you have been moving around a lot more than usual: not at all 9. Thoughts that you would be better off or of hurting yourself in some way: not at all Total score: 0 Depression Screening Interpretation: Negative Depression Screening Done: Yes Source: Developed by Drs. Uzair Napoles, Coretta Bernal, Saul Resendiz and colleagues, with an educational mabel from [employer]. Thrive Questionnaire Date Thrive assessed: 08/23/23 Are you currently unemployed and looking for a job?: No AUDIT C Alcohol Use Questionnaire (AUDIT-C) 1. How often do you have a drink containing alcohol?: Never Total Score: 0 Score Reviewed/Action Taken: Yes AGUSTÍN-7 AMB Questionnaire AGUSTÍN-7 Date AGUSTÍN - 7 assessed: 10/20/23 Source: Developed by Drs. Uzair Napoles, Coretta Bernal, Saul Resendiz and colleagues, with an educational mabel from [employer]. Review of Systems Const Denies chills, Denies fatigue, Denies headache(s) and Denies weight loss Eyes Denies change in vision, Denies diplopia and Denies eye pain ENT Denies vertigo, Denies dizziness, Denies headache(s) and Denies nasal discharge Card Denies chest pain, Denies rapid heart rate and Denies dyspnea on exertion Resp Denies chest congestion, Denies cough, Denies pain with cough and Denies dyspnea on exertion GI Denies abdominal pain, Denies hematochezia and Denies change in bowel habits Musc Denies myalgias, Denies arthralgias and Denies joint swelling Skin/Breast Denies lesions and Denies unusual bruising Neuro Denies vertigo, Denies dizziness, Denies headache(s) and Denies focal weakness Endo Denies fatigue Physical exam (Primary Care) Vital Signs: Last Vital Signs Pulse 117 H 12/09/23 09:04 BP 112/58 L 12/09/23 09:04 Pulse Ox 84 L 12/09/23 09:04 Oxygen Delivery Method Room Air 12/09/23 09:04 BMI result Body Mass Index 24.1 Tobacco/Smoking Status: Tobacco use Status Tobacco use date assessed 12/09/23 12/09/23 09:13 Patient Tobacco Use Status Current everyday Tobacco 12/09/23 09:13 Tobacco use type Cigarette 12/09/23 09:13 e-Cigarette/Vaping Use Never Used 12/09/23 09:13 PHQ-9: PHQ-9 Score PHQ-9: Total score 0 12/09/23 09:14 Depression Screening Interpretation: Negative Thrive Assessment: Date of Thrive Assessment Date Thrive assessed 08/23/23 12/09/23 09:13 Const General: cooperative, healthy appearing and no acute distress Orientation/consciousness: oriented to person, oriented to place and oriented to time HENMT Head: Yes normal to inspection, Yes normocephalic and Yes atraumatic Mouth: Normal oral and palatal mucosa present and tongue normal Throat: Yes posterior oropharynx normal and Yes uvula midline Eyes General: appearance normal, both eyes and all related structures Neck Neck: Yes normal visual inspection, Yes full ROM and Yes no lymphadenopathy Thyroid: Thyroid normal Carotids: normal carotid upstroke Chest Chest palpation & inspection: normal inspection of the chest Resp Effort & Inspection: normal respiratory effort and able to speak in complete sentences Auscultation: clear to auscultation bilaterally Cardio Jugular venous distension: no JVD Palpation: normal PMI Rate: regular rate Rhythm: regular rhythm Heart sounds: S1 normal heart sound present and S2 normal heart sound present GI Inspection: Yes normal to inspection Palpation (GI): Soft to palpation and No hepatosplenomegaly present Auscultation: normal bowel sounds General: Yes no CVA tenderness Back/Spine/Pelvis Back: no CVA tenderness Skin General skin exam: no rashes or lesions noted Neuro General: oriented to person, oriented to place and oriented to time Extrem General: Yes normal to inspection and Yes full ROM Coding Level of Care Code Est Pt Level 4 (87635) Diagnoses Preop exam for internal medicine Z01.818 Typical atrial flutter I48.3 Atrial flutter type: typical Hypertension I10 Cocaine abuse F14.10 Assessment & Plan Assessment & Plan (1) Preop exam for internal medicine: Code(s): Z01.818 - Encounter for other preprocedural examination Category: Medical Plan: cleared for procedure (2) Atrial flutter: Code(s): I48.92 - Unspecified atrial flutter Category: Medical Qualifiers: Atrial flutter type: typical Qualified Code(s): I48.3 - Typical atrial flutter Plan: as per cardiology (3) Hypertension: Code(s): I10 - Essential (primary) hypertension Category: Medical Plan: stable (4) Cocaine abuse: Code(s): F14.10 - Cocaine abuse, uncomplicated Category: Medical Plan: continue suboxone
== END 2023-12-09 09:28 | disposition home or self-care (01) ==
PROVIDERS: PCP Internal Medicine; Visit Provider Internal Medicine
DX: Z01.818 Encounter for other preprocedural examination (principal); I48.3 Typical atrial flutter; I10 Essential (primary) hypertension; F14.10 Cocaine abuse, uncomplicated

== ENCOUNTER → 2023-12-09 09:01 | Outpatient (BNVA) | payer MEDICARE, MEDICAID, SELFPAY | PROVIDERS: PCP Internal Medicine; Visit Provider Internal Medicine | DX: Z01.818 Encounter for other preprocedural examination (principal); I48.3 Typical atrial flutter; I10 Essential (primary) hypertension; F14.10 Cocaine abuse, uncomplicated | CPT/HCPCS: 96127; 99212 ==

== ENCOUNTER → 2024-01-04 10:58 | Outpatient (BNV) | payer MEDICARE, MEDICAID, SELFPAY | PROVIDERS: PCP Internal Medicine; Referring Provider Internal Medicine; Visit Provider Internal Medicine Medical Oncology | DX: D69.6 Thrombocytopenia, unspecified (principal) | CPT/HCPCS: 99204 ==

== ENCOUNTER 2024-01-17 13:31 | Outpatient (AMB) | payer MEDICARE, MEDICAID, SELFPAY ==
--- NOTE | 2024-01-17 13:34 | A.OFFVIS_ITS ---
Vital Signs 01/17/24 13:42 Height 6 ft Weight 175 lb BMI 23.7 BP 131/73 Blood Pressure Location Rt brachial Position Sitting Pulse 115 H Intake Visit Reasons: discuss hernia repair~ cardio clearance Intake Note: Patient here to discuss hernia surgery. ? Cardiology clearance. Sees Dr. Ga Nash @ [facility] [place]. Patient reports may need a platelet transfusion. Hand Cloth Examiner Required: No Accompanied by: Self / Same As Patient Allergies morphine Allergy (Severe, Verified 01/17/24 13:42) Anaphylaxis acetaminophen [From Tylenol] Allergy (Intermediate, Verified 01/17/24 13:42) Gastrointestinal Upset HPI Comments Details: Patient whom I have seen in the past presents here because of persistent symptoms of his umbilical hernia. He would like to have had this repaired many months ago and was awaiting cardiac clearance. 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 In the meantime, his hernia has increased in size as noted above and he would like to have it repaired because it is very symptomatic. He is tolerating a diet. Having regular bowel habits. Chart was reviewed and patient evaluated [facility] Medical History Tubular adenoma Tariq's esophagus determined by biopsy GERD (gastroesophageal reflux disease) Chronic idiopathic constipation Hx of opioid abuse Obesity Hyperlipidemia Asthma Peripheral neuropathy Hypertension Lower back pain Surgical History S/P cardiac cath Hx of colonoscopy History of esophagogastroduodenoscopy (EGD) History of back surgery Family History (Updated 01/04/24 @ 11:12 by Janae Wade) Father No problems noted. Mother Chronic a-fib Sister Chronic a-fib Breast cancer Ovarian cancer Social History (Updated 01/04/24 @ 11:12 by Janae Wade) Household Members: Friend(s) Housing: House Do you presently have visiting nurse or other home services: No Alcohol intake: current Alcohol intake frequency: 3 or more drinks per day Alcohol type: beer and hard liquor Patient Tobacco Use Status: Current everyday Tobacco user Tobacco use type: Cigarette Cigarette Packs Per Day: 0.5 e-Cigarette/Vaping Use: Never Used Second Hand Smoke Exposure: Yes Advance Directives Date on File: 07/28/22 service: No Current occupational status: disabled Cognitive needs: No Hearing needs: No Vision needs: No Physical Exam Vital Signs: Last Vital Signs Pulse 115 H 01/17/24 13:42 BP 131/73 01/17/24 13:42 BMI result Body Mass Index 23.7 Chest Other: Chest breath sounds bilaterally, HS 1 in 2 GI Other: Patient was examined both supine and standing with Valsalva. Roughly 2-3 cm incarcerated umbilical hernia. Abdomen otherwise benign Assessment & Plan Assessment & Plan (1) Umbilical hernia: Code(s): K42.9 - Umbilical hernia without obstruction or gangrene Category: Surgical Plan Once again risks, benefits, alternatives of umbilical hernia repair with mesh were reviewed with the patient included but not limited to bleeding, infection, recurrence, numbness, pain, scarring the patient wished to proceed. Awaiting cardiac clearance. Arrangements were made for the surgery once this has been obtained. All questions answered. Patient has been cleared by Hematology what as long as platelet count as above 70 for hernia repair (Dr. Serrano) Coding Level of Care Code Est Pt Level 5 (78710) Diagnoses Umbilical hernia K42.9
[2024-01-17 13:42] VITALS: BP 131/73; PULSE 115; BMI 23.7
== END 2024-01-17 13:56 | disposition home or self-care (01) ==
PROVIDERS: PCP Internal Medicine; Visit Provider Surgery
DX: K42.9 Umbilical hernia without obstruction or gangrene (principal)
CPT/HCPCS: 99214

== ENCOUNTER → 2024-01-17 13:31 | Outpatient (BNVA) | payer MEDICARE, MEDICAID, SELFPAY | PROVIDERS: PCP Internal Medicine; Visit Provider Surgery | DX: K42.9 Umbilical hernia without obstruction or gangrene (principal) | CPT/HCPCS: 99212 ==

== ENCOUNTER 2024-01-25 09:46 | Outpatient (AMB) | payer MEDICARE, MEDICAID, SELFPAY ==
--- NOTE | 2024-01-25 09:49 | MHC.PC.OV ---
Vital Signs 01/25/24 09:50 Height 6 ft Weight 177 lb 8 oz BMI 24.1 BP 130/70 Blood Pressure Location Lt brachial Position Sitting Pulse 58 Pulse Source Pulse Oximeter Pulse Oximetry (%) 81 L Oxygen Delivery Method Room Air Intake Visit Reasons: [id number] Intake Note: Patient is here to follow up on HTN, Atrial Flutter. Pt decline flu shot today. Pipe Out Worker Required: No Open Source Developer: Not Required per policy Accompanied by: Self / Same As Patient Allergies morphine Allergy (Severe, Verified 01/25/24 09:49) Anaphylaxis acetaminophen [From Tylenol] Allergy (Intermediate, Verified 01/25/24 09:49) Gastrointestinal Upset Tobacco use date assessed: 01/25/24 Dental Screening Dental Screen Date: 10/20/23 HPI [id number] HPI Details substance abuse on Suboxone; also an alcoholic and continues to drink PFSH Medical History Tubular adenoma Tariq's 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 Mother Chronic a-fib Sister Chronic a-fib Breast cancer Ovarian cancer Social History Household Members: Friend(s) Housing: House Do you presently have visiting nurse or other home services: No Alcohol intake: current Alcohol intake frequency: 3 or more drinks per day Alcohol type: beer and hard liquor Patient Tobacco Use Status: Current everyday Tobacco user Tobacco use type: Cigarette Cigarette Packs Per Day: 0.5 Cigarettes Per Day: 10 e-Cigarette/Vaping Use: Never Used Second Hand Smoke Exposure: Yes Advance Directives Date on File: 07/28/22 service: No Current occupational status: disabled Cognitive needs: No Hearing needs: No Vision needs: No Questionnaire Thrive Questionnaire Date Thrive assessed: 08/23/23 Are you currently unemployed and looking for a job?: No AGUSTÍN-7 AMB Questionnaire AGUSTÍN-7 Date AGUSTÍN - 7 assessed: 10/20/23 Source: Developed by Drs. Uzair Napoles, Coretta Bernal, Saul Resendiz and colleagues, with an educational mabel from [employer]. Review of Systems Const Denies chills, Denies headache(s) and Denies weight loss ENT Denies headache(s) Card Denies chest pain, Denies syncope, Denies irregular heart rhythm and Denies dyspnea Resp Denies chest congestion, Denies cough and Denies dyspnea GI Denies abdominal pain, Denies change in stool character, Denies nausea and Denies vomiting Musc Denies deformity and Denies joint swelling Neuro Denies syncope and Denies headache(s) Physical exam (Primary Care) Vital Signs: Last Vital Signs Pulse 58 01/25/24 09:50 BP 130/70 01/25/24 09:50 Pulse Ox 81 L 01/25/24 09:50 Oxygen Delivery Method Room Air 01/25/24 09:50 BMI result Body Mass Index 24.1 Tobacco/Smoking Status: Tobacco use Status Tobacco use date assessed 01/25/24 01/25/24 09:55 Patient Tobacco Use Status Current everyday Tobacco 01/25/24 09:55 Tobacco use type Cigarette 01/25/24 09:55 e-Cigarette/Vaping Use Never Used 01/25/24 09:55 Thrive Assessment: Date of Thrive Assessment Date Thrive assessed 08/23/23 01/25/24 09:55 Const General: cooperative, comfortable, no acute distress and alert Neck Neck: Yes no lymphadenopathy Thyroid: Thyroid normal Resp Effort & Inspection: normal respiratory effort Auscultation: clear to auscultation bilaterally Percussion: percussion normal Cardio Jugular venous distension: no JVD Palpation: normal PMI Rate: regular rate Rhythm: regular rhythm Heart sounds: S1 normal heart sound present and S2 normal heart sound present GI Inspection: Yes normal to inspection Palpation (GI): No hepatosplenomegaly present Skin General skin exam: no rashes or lesions noted Extrem General: Yes no clubbing, cyanosis or edema Coding Level of Care Code Est Pt Level 3 (79554) Diagnoses Substance abuse F19.10 Assessment & Plan Assessment & Plan (1) Substance abuse: Code(s): F19.10 - Other psychoactive substance abuse, uncomplicated Category: Medical Plan: f/u with [facility]
[2024-01-25 09:50] VITALS: BP 130/70; PULSE 58; O2SAT 81; BMI 24.1
== END 2024-01-25 10:08 | disposition home or self-care (01) ==
PROVIDERS: PCP Internal Medicine; Visit Provider Internal Medicine
DX: F19.10 Other psychoactive substance abuse, uncomplicated (principal)

== ENCOUNTER → 2024-01-25 09:46 | Outpatient (BNVA) | payer MEDICARE, MEDICAID, SELFPAY | PROVIDERS: PCP Internal Medicine; Visit Provider Internal Medicine | DX: F19.10 Other psychoactive substance abuse, uncomplicated (principal) | CPT/HCPCS: 99212 ==

== ENCOUNTER 2024-02-15 | Outpatient (REF) | payer MEDICARE, MEDICAID, SELFPAY ==
--- NOTE | 2024-02-15 | ECG_ITS ---
Test Reason : pre op Blood Pressure : / mmHG Vent. Rate : 091 BPM Atrial Rate : 242 BPM P-R Int : 000 ms QRS Dur : 092 ms QT Int : 382 ms P-R-T Axes : 088 -78 239 degrees QTc Int : 469 ms Atrial flutter with variable A-V block Nonspecific ST and T wave abnormality Abnormal ECG When compared with ECG of 22-AUG-2023 12:11, No significant changes seen Referred By: Cassidy Hunter Electronically Signed By:JOEY KAMINSKI
--- NOTE | ~2024-02-15 | XR_ITS ---
EXAMINATION: XR CHEST CLINICAL INFORMATION: Preoperative. Hypoxemia. Productive cough. COMPARISON: 08/22/2023. TECHNIQUE: 3 views of the chest were obtained. FINDINGS: Dextroscoliosis of the thoracolumbar spine with moderate multilevel degenerative changes. The lungs are well-inflated. There is no pneumothorax. Heart size is normal. Redemonstration of expansile deformity along the anterior aspect of lower right ribs. No significant pleural effusion. Mild multilevel degenerative changes in the thoracic spine. The lungs are hyperinflated. Redemonstration of streaky and tubular opacities in the wcjdi-baehadq-sqnt-left lower lung. CT abdomen and pelvis of 07/24/2022 demonstrated bronchial wall thickening and clustered peribronchial nodular opacities in the right middle and right lower lobes. XR/XR chest 2V IMPRESSION: Redemonstration of streaky and tubular opacities in the [id number]-[id number]-sxsw-left lower lung. CT abdomen and pelvis of 07/24/2022 demonstrated bronchial wall thickening and clustered peribronchial nodular opacities in the right middle and right lower lobes. This study was presented today to February 15, 2024 for interpretation. Stat results provided at this time as requested by referring provider. Electronically signed by: Imelda Mendenhall MD 02/15/2024 01:19 PM [facility]
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
[2024-02-15 10:22] VITALS: BMI 22.9
[2024-02-15 10:23] VITALS: BP 113/61; PULSE 89; RESP 16; O2SAT 88; BMI 22.9
[2024-02-15 12:06] LABS: Hematocrit 39.5 % (42.0-52.0); Hemoglobin 13.8 g/dl (14.0-18.0); Mean Corpuscular HGB Conc 34.9 g/dl (31.0-36.0); Mean Corpuscular Hemoglobin 37.3 pg (27.0-33.0); Mean Corpuscular Volume 106.8 fL (80.0-98.0); Red Cell Distribution Width 14.2 % (11.0-16.0); White Blood Count 6.1 X10*3/uL (4.8-10.8)
[2024-02-15 12:07] LABS: Platelet Count 55 X10*3/uL (160-400)
[2024-02-15 12:08] LABS: Prothrombin Time 11.9 SEC (10.9-12.4)
[2024-02-15 12:55] LABS: Alanine Aminotransferase 33 U/L (0-40); Albumin Level 2.8 g/dL (3.5-5.0); Alkaline Phosphatase 173 U/L (39-117); Anion Gap 11 (12-20); Aspartate Amino Transferase 86 U/L (5-37); Bilirubin Total 1.6 mg/dL (0.0-1.0); Blood Urea Nitrogen 7 mg/dL (9-16); Carbon Dioxide 39 mmol/L (22-29); Chloride 91 mmol/L (96-108); Estimated Glomerular Filt Rate > 60; Glucose Random 114 mg/dL (60-115); Potassium 2.5 mmol/L (3.3-5.1); Sodium 138 mmol/L (135-145); Total Protein 6.3 g/dL (6.5-8.0)
[2024-02-15 13:08] LABS: Amphetamine Screen Urine Not Detected (Not Detect); Barbiturates, Urine Not Detected (Not Detect); Benzodiazepines Screen Urine Not Detected (Not Detect); Buprenorphine Scr Positive (Not Detect); Cannabinoid Screen Urine Not Detected (Not Detect); Cocaine Screen Urine Not Detected (Not Detect); Fentanyl, urine Not Detected (Not Detect); Methadone Screen, Urine Not Detected (Not Detect); Opiate Screen Urine Not Detected (Not Detect); Oxycodone Screen Urine Not Detected (Not Detect); Phencyclidine Screen Urine Not Detected (Not Detect)
--- NOTE | 2024-02-24 09:00 | MHC.SHP ---
Pre-Procedural Eval Section A - 24 Hr Update-Section A only Date of Service: 02/25/24 The patient is an INPATIENT: No Changes since office visit: No Cold of Flu in the past 2 weeks, No New Medical Problems, No Changes in Medication and No Patient answered all questions Section B - Complete if H&P > 30 days Chief Complaint: Umbilical hernia without obstruction or gangrene Allergies: Allergies Allergy/AdvReac Type Severity Reaction Status Date / Time morphine Allergy Severe Anaphylaxis Verified 01/25/24 09:49 acetaminophen [From Tylenol] Allergy Intermediate Gastrointestinal Verified 01/25/24 09:49 Upset Review of Systems Sugical H&P ROS: Negative: Constitution, Cardiovascular, Respiratory, Neurological, Psychiatric, Hem-Onc, Allergic/Immunologic, Gastrointestinal, Genitourinary, Musculoskeletal, Integumentary, Endocrine and Eyes/Ears/Nose/Throat Exam Surgical H&P Exam: Normal: HEENT, Normal: Heart, Normal: Lungs, Normal: Extremities, Normal: Abdomen, Normal: Skin and Normal: Neurological Plan I have reviewed the history and physical and performed a pertinent physical examination on my patient. No changes have occurred unless specified. Time Spent With Patient Time: Total time managing care of this patient today ____ minutes.
--- OUTSIDE RECORDS SUMMARY | 2024-04-07 13:48 | XMS_ITS | Encounter Summary ---
Author Organization [facility] Address [address] [place] [address] Care Team Providers Care Head Silverman Name Role Phone Evelyn Ibrahim MD Primary Care Provider [phone] Reason for Visit * Reason Onset Date Comments Contact Info/ Update 02/18/2024 Encounter Details Date Type Department Care Team (Late st Contact Info) Description 02/18/2024 [facility] [place] [address] [facility] [address] [place] [phone] Dayna Bustillo MD [address] [place], [place] [phone] Contact Info/ Update Social History Tobacco Use [...] - 02/18/2024 9:54 AM EST Rupert from [facility] called to get updates on the medical clearance needed for pt surgery on the . Informed her of the pt appointment for the . Requested the clearance to be faxed to [phone]. documented in this encounter Plan of Treatment Upcoming Encounters Date Type Department Care Team (Late st Contact Info) Description 06/12/2024 1:00 PM EDT Office Visit Pulmonolgy - [place] [address] [phone] Dayna Bustillo MD [address] [address] documented as of this encounter Visit Diagnoses Not on filedocumented in this encounter Care Teams Head Silverman Relationship Specialty Start Date End Date Evelyn Ibrahim MD [address] [address] PCP - General Internal Medicine 04/11/21 documented as of this encounter
--- OUTSIDE RECORDS SUMMARY | 2024-04-07 13:48 | XMS_ITS | Encounter Summary ---
Author Organization [facility] Address [address] [place] [address] Care Team Providers Care Van Owner Operator Name Role Phone Evelyn Ibrahim MD Primary Care Provider [phone] Reason for Visit * Reason Comments Pre-op Visit Pre-op clearance Hea rt stent Encounter Details Date Type Department Care Team (Latest Contact Info) Description 03/13/2024 11:00 AM EST Office Visit Pulmonolgy - [place] 175 [facility] [address] [place] [phone] Dayna Bustillo MD 175 [facility] 200 [place] [address] Chronic obstructive pulmonary disease, unspecified COPD type [...] also smokes with him house. He had [place] in 04/2022. Patient is resting O2 sat [...] 1 Tablet by mouth 2 times daily. mivcktxzgkc-kbcmiayndlez-ystkyxzpcb (Trelegy Ellipta) 200-62.5-25 mcg inhaler Inhale into [...] disorder 03/08/2014 COPD (chronic obstructive pulmonary disease) ([facility]) 03/09/2013 Depression 03/09/2013 GERD (gastroesophageal [...] correlation warranted. RADIOLOGIST IMAGING: - 11/26/23 - 0645 Report Status:Signed PROCEDURE: Chest CT COMPARISON: 04/19/2023 [...] Chronic obstructive pulmonary disease, unspecified COPD type ([facility]) J44.9 496 2. Stage 4 very severe COPD by GOLD classification ([facility]) J44.9 496 3. Tobacco use [...] 1:00 PM EDT Office Visit Pulmonolgy - [place] [address] [address] Dayna Bustillo MD [address] [address] documented as of this encounter Visit Diagnoses Diagnosis Chronic obstructive pulmonary disease, unspecified COPD type ([facility])- Primary Stage 4 very severe COPD by GOLD classification ([facility]) Tobacco use disorder Hypoxemia documented in this encounter Care Teams Van Owner Operator Relationship Specialty Start Date End Date Evelyn Ibrahim MD 200 [facility] 1 [place] [address] PCP - General Internal Medicine 04/11/21 documented as of this encounter
--- OUTSIDE RECORDS SUMMARY | 2024-04-07 13:48 | XMS_ITS | Clinical Summary ---
Author Organization 175 [facility] Address 175 [place] [address] Phone Care Team Providers Care Mds Rn Name Role Phone Evelyn Ibrahim MD Primary Care Provider [phone] Allergies Active Allergy Reactions Criticality Noted Date [...] Description 03/13/2024 11:00 AM EST Office Visit [address] [address] Dayna Bustillo MD Chronic obstructive pulmonary disease, unspecified COPD type ([facility]) (Primary Dx); Stage 4 very severe COPD by GOLD classification ([facility]); Tobacco use disorder; Hypoxemia 02/18/[address] [address] Dayna Bustillo MD Contact Info/ Update 02/16/[address] [address] Dayna Bustillo MD from Last [...] DX:Anxiety COPD (chronic obstructive pu lmonary disease) ([facility]) 03/09/2013 DX:COPD (chronic obstructive pulmonary disease) ([facility]) Depression 03/09/2013 DX:Depression GERD (gastroesophageal reflux disease) [...] 1:00 PM EDT Office Visit Pulmonolgy - [place] 175 [facility] [address] [place] [address] Dayna Bustillo MD 175 [facility] [address] [place] [address] Health Maintenance Due Date Last Done Comments [...] RACHEL E * Lipid panel (08/03/2019) Pathologist [facility] LDL/HDL Ratio 4 0 - 4 Triglycerides 124 0 - 150 mg/dL Cholesterol 145 0 - 200 mg/dL HDL 40 40 mg/dL LDL Cholesterol 81 0 - 100 mg/dL Blood Venous blood specimen / Unknown Historical Provider LAB BLOOD ORDERAB LES from Last 3 Months or Most Recently Relevant to Health Maintenance Care Teams Mds Rn Relationship Specialty Start Date End Date Evelyn Ibrahim MD [address] [place] [address] PCP - General Internal Medicine 04/11/21
== END 2024-02-15 00:01 | disposition home or self-care (01) ==
LOC: HO.PAT
PROVIDERS: Nurse Practitioner; PCP Internal Medicine; Visit Provider Surgery
DX: Z01.818 Encounter for other preprocedural examination (principal); D69.6 Thrombocytopenia, unspecified; I48.91 Unspecified atrial fibrillation; I48.92 Unspecified atrial flutter; R05.8 Other specified cough; F11.20 Opioid dependence, uncomplicated; I10 Essential (primary) hypertension; E87.6 Hypokalemia; J44.9 Chronic obstructive pulmonary disease, unspecified; K42.9 Umbilical hernia without obstruction or gangrene; F10.90 Alcohol use, unspecified, uncomplicated
CPT/HCPCS: 36415; 71046; 80053; 80307; 85027; 85610; 93005

== ENCOUNTER → 2024-02-15 11:21 | Outpatient (BNV) | payer MEDICARE, MEDICAID, SELFPAY | PROVIDERS: PCP Internal Medicine; Visit Provider Internal Medicine | DX: R94.31 Abnormal electrocardiogram [ECG] [EKG] (principal) | CPT/HCPCS: 93010 ==

== ENCOUNTER 2024-04-04 13:37 | Outpatient (AMB) | payer MEDICARE, MEDICAID, SELFPAY ==
[2024-04-04 13:43] VITALS: BP 100/66; PULSE 96; TEMP 36.1; O2SAT 79; BMI 22.6
--- NOTE | 2024-04-04 13:43 | MHC.PC.OV ---
Vital Signs 04/04/24 13:43 Height 6 ft Weight 167 lb BMI 22.6 BP 100/66 Blood Pressure Location Lt brachial Position Sitting Pulse 96 Pulse Source Pulse Oximeter Temp 96.9 F Temp Source Temporal Artery Scan Pulse Oximetry (%) 79 L Oxygen Delivery Method Room Air Intake Visit Reasons: STORM DR Daniel Allergies morphine Allergy (Severe, Verified 01/25/24 09:49) Anaphylaxis acetaminophen [From Tylenol] Allergy (Intermediate, Verified 01/25/24 09:49) Gastrointestinal Upset Medication List - Last Reconciled 04/04/24 by Karma Saba PA-C albuterol sulfate 90 mcg/actuation (Ventolin HFA) 90 mcg inhalation Q4-6H PRN atorvastatin 20 mg PO BEDTIME bisacodyl (Dulcolax (bisacodyl)) 10 mg (2 x 5 mg) PO BEDTIME buprenorphine-naloxone 8-2 mg 1 tab sublingual TID citalopram 20 mg PO DAILY clonazepam (Klonopin) 1 mg PO BID PRN diltiazem HCl ER (Tiadylt ER) 300 mg PO DAILY flecainide 50 mg PO BID ewjfocpgvql-kylshptek-atupwbdw 200-62.5-25 mcg (Trelegy Ellipta) 1 ea inhalation DAILY metoprolol tartrate 100 mg PO BID 90 days pantoprazole 40 mg PO DAILY@0630 potassium 99 mg PO DAILY prucalopride (Motegrity) 2 mg PO DAILY Tobacco use date assessed: 01/25/24 Dental Screening Dental Screen Date: 10/20/[address] Daniel HPI Details 54-year-old male with past medical history of hypercholesterolemia, hypertension, GERD with Barretts, constipation, asthma, tobacco abuse, erectile dysfunction, atrial flutter for polysubstance abuse last seen by Dr. Daniel 12/2023 coming in for transfer of care. Patient was seen by Cardiology 03/31/2024 EKG showing atrial flutter with AV conduction, increase furosemide for leg swelling. Patient has low platelet count not a good candidate for anticoagulation at this time advising nonpharmacological measures including MIKAL closure. Smoking cessation was discussed. Patient tells us today he continues to have shortness of breath. States he can only walk short periods without feeling fatigued and short of breath. He continues to smoke cigarettes about a half a pack a day and has no interest in quitting at this time. In the last week or so he began having a runny nose and worsening productive cough with change in phlegm color. He is unsure of the last IV saw his mining detail draftsperson but follows with Dr. Bustillo through [facility] unsure of his next appointment. He does use his inhalers and uses his albuterol daily. 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 Mother Chronic a-fib Sister Chronic a-fib Breast cancer Ovarian cancer Social History Household Members: Friend(s) Housing: House Are you a primary home health care respiratory therapist to a significant other at home: No Do you presently have visiting nurse or other home services: No Alcohol intake: current Alcohol intake frequency: a few times a week Alcohol type: beer and hard liquor Patient Tobacco Use Status: Current everyday Tobacco user Tobacco use type: Cigarette Cigarette Packs Per Day: 0.5 Cigarettes Per Day: 10.0 e-Cigarette/Vaping Use: Never Used Second Hand Smoke Exposure: Yes Advance Directives Date on File: 07/28/22 service: No Current occupational status: disabled Cognitive needs: No Hearing needs: No Vision needs: No Questionnaire PHQ-9 Over the last 2 weeks, how often have you been bothered by any of the following problems? 1. Little interest or pleasure in doing things: not at all 2. Feeling down, depressed, or hopeless: not at all 3. Trouble falling or staying asleep, or sleeping too much: not at all 4. Feeling tired or having little energy: not at all 5. Poor appetite or overeating: not at all 6. Feeling bad about yourself - or that you are a failure or have let yourself or your family down: not at all 7. Trouble concentrating on things, such as reading the newspaper or watching television: not at all 8. Moving or speaking so slowly that other people could have noticed. Or the opposite - being so fidgety or restless that you have been moving around a lot more than usual: not at all 9. Thoughts that you would be better off or of hurting yourself in some way: not at all Total score: 0 Depression Screening Interpretation: Negative Depression Screening Done: Yes 22398 - PHQ-9 Billing: Yes Source: Developed by Drs. Uzair Napoles, Coretta Bernal, Saul Resendiz and colleagues, with an educational mabel from [email or web address]. Thrive Questionnaire Date Thrive assessed: 04/04/24 I am a: Patient What is your living situation today?: I have a steady place to live Within the past 12 months, did the food you bought not last and you didn't have the money to get more?: Never true Within the past 12 months, did you worry whether your food would run out before you got money to buy more?: Never true Do you have trouble paying for medicines?: No Do you have trouble getting transportation to medical appointments?: No Do you have trouble paying your heating and electricity bill?: No Do you have trouble taking care of your child, family member or friend?: No Do you have trouble with day-to-day activities such as bathing, preparing meals, shopping, managing finances, etc.?: No Are you currently unemployed and looking for a job?: No Are you interested in more education?: No Please select the resources that you would like help with: None Currently or been in a relationship where the following occur: No concerns reported THRIVE Score: 0 AUDIT C Alcohol Use Questionnaire (AUDIT-C) 1. How often do you have a drink containing alcohol?: Never 3. How often do you have six or more drinks on one occasion?: Never Total Score: 0 Score Reviewed/Action Taken: Yes AGUSTÍN-7 AMB Questionnaire AGUSTÍN-7 Date AGUSTÍN - 7 assessed: 04/04/24 Feeling nervous, anxious, or on edge: 0 = Not at all Not being able to stop or control worryin = Not at all Worrying too much about different things: 0 = Not at all Trouble relaxin = Not at all Being so restless that it is hard to sit still: 0 = Not at all Becoming easily annoyed or irritable: 0 = Not at all Feeling afraid as if something awful might happen: 0 = Not at all Total AGUSTÍN-7 score (0-4 normal; 5-9 mild; 10-14 moderate; 15-21 severe): 0 Source: Developed by Drs. Uzair Napoles, Coretta Bernal, Saul Resendiz and colleagues, with an educational mabel from [email or web address]. AGUSTÍN-7 Assessment Billing AGUSTÍN-7 Assessment Tool: AGUSTÍN-7 Assessment 45730 Review of Systems Const Denies body aches, Denies chills, Denies fever(s), Denies headache(s) and Denies poor appetite Eyes Reports no additional complaints ENT Denies dysphagia, Denies dizziness, Denies headache(s) and Denies odynophagia Card Denies chest pain, Denies syncope, Denies edema, Denies irregular heart rhythm, Denies lightheadedness, Denies dyspnea and Reports dyspnea on exertion Resp Reports cough, Reports excessive phlegm production, Denies dyspnea and Reports dyspnea on exertion GI Denies abdominal pain, Denies dysphagia and Denies odynophagia Reports no additional complaints Musc Reports no additional complaints and Denies abnormal gait Skin/Breast Reports system reviewed and no additional complaints, except as documented Neuro Denies abnormal gait, Denies dizziness, Denies syncope and Denies headache(s) Psych Reports no additional complaints Physical exam (Primary Care) Vital Signs: Last Vital Signs Temp 96.9 F 04/04/24 13:43 Pulse 96 04/04/24 13:43 BP 100/66 04/04/24 13:43 Pulse Ox 79 L 04/04/24 13:43 Oxygen Delivery Method Room Air 04/04/24 13:43 BMI result Body Mass Index 22.6 Tobacco/Smoking Status: Tobacco use Status Tobacco use date assessed 01/25/24 04/04/24 13:45 Patient Tobacco Use Status Current everyday Tobacco 04/04/24 13:45 Tobacco use type Cigarette 04/04/24 13:45 e-Cigarette/Vaping Use Never Used 04/04/24 13:45 PHQ-9: PHQ-9 Score PHQ-9: Total score 0 04/04/24 14:16 Depression Screening Interpretation: Negative Thrive Assessment: Date of Thrive Assessment Date Thrive assessed 04/04/24 04/04/24 13:45 Currently or been in a relationship where the following occur: No concerns reported Const General: cooperative, healthy appearing, comfortable and no acute distress Orientation/consciousness: patient oriented x3 HENMT Head: Yes normocephalic Ears: hearing grossly normal bilaterally General nose exam: Normal external nose present Eyes General: appearance normal, both eyes and all related structures Conjunctivae: conjunctivae normal Neck Neck: Yes full ROM and Yes no lymphadenopathy Resp Effort & Inspection: normal respiratory effort Auscultation: clear to auscultation bilaterally, no crackles, no rales, rhonchi lower bilaterally and wheezes upper bilaterally Cardio Rate: regular rate Rhythm: regular rhythm Skin General skin exam: no rashes or lesions noted Neuro General: patient oriented x3 Gait exam (Neuro): Normal gait present Extrem General: Yes normal to inspection, Yes full ROM and No edema Psych Affect: normal affect Attitude: cooperative Insight: Good insight present (Psych) Judgement: Good judgement present (Psych) Coding Level of Care Code Est Pt Level 4 (78103) Diagnoses Thrombocytopenia D69.6 Cigarette smoker F17.210 Typical atrial flutter I48.3 Atrial flutter type: typical Depression F32.9 Hypertension I10 S/P cardiac cath Z98.890 Gastroesophageal reflux disease with esophagitis without hemorrhage K21.00 Esophagitis bleeding: without hemorrhage Esophagitis presence: with esophagitis COPD (chronic obstructive pulmonary disease) J44.9 Additional Codes AGUSTÍN-7 Assessment Billing - AGUSTÍN-7 Assessment Tool: AGUSTÍN-7 Assessment 93254 ([id number]) PHQ-9 - 52373 - PHQ-9 Billing: Yes ([id number]) Assessment & Plan Assessment & Plan (1) Thrombocytopenia: Code(s): D69.6 - Thrombocytopenia, unspecified Category: Medical Plan: Patient recently seen by business management manager deemed not to be a good candidate for anticoagulation due to thrombocytopenia. Continue to monitor at this time and continue to follow with Hematology appointment later this month (2) Cigarette smoker: Code(s): F17.210 - Nicotine dependence, cigarettes, uncomplicated Category: Social Hx Plan: Smoking cigarettes and the use of tobacco can be harmful. We discussed the importance of stopping and options to aid in smoking cessation. Declines lung cancer screening (3) Atrial flutter: Code(s): I48.92 - Unspecified atrial flutter Category: Medical Qualifiers: Atrial flutter type: typical Qualified Code(s): I48.3 - Typical atrial flutter Plan: Recently seen by Cardiology Hu Vasc score of 3 recommending anticoagulation however given thrombocytopenia not a good candidate at this time. Recommending non pharmacological measures continue to follow with Cardiology. On metoprolol for rate control (4) Depression: Code(s): F32.9 - Major depressive disorder, single episode, unspecified Category: Medical Plan: Depression well managed at this time currently on citalopram. (5) Hypertension: Code(s): I10 - Essential (primary) hypertension Category: Medical Plan: Continue on current blood pressure medication. Avoid salt intake and encourage healthy diet and regular exercise. (6) S/P cardiac cath: Comment: 07/28/22 LM, LCx, RCA normal, LAD minimal irregularities Code(s): Z98.890 - Other specified postprocedural states Category: Surgical Plan: Advised good control of cholesterol, blood sugars and blood pressures. (7) GERD (gastroesophageal reflux disease): Code(s): K21.9 - Gastro-esophageal reflux disease without esophagitis Category: Medical Qualifiers: Esophagitis bleeding: without hemorrhage Esophagitis presence: with esophagitis Qualified Code(s): K21.00 - Gastro-esophageal reflux disease with esophagitis, without bleeding Plan: Avoid trigger foods such as citrus, tomato products, soda, caffeine, spicy foods and other foods that may be irritating to your stomach. Avoid laying flat 3-4 hours after eating and elevate the head of the bed 30 degrees to prevent acid from moving into the esophagus. Continue on pantoprazole (8) COPD (chronic obstructive pulmonary disease): Code(s): J44.9 - Chronic obstructive pulmonary disease, unspecified Category: Medical Plan: Patient having diagnosis of COPD. In the office today his saturation was 79% on room air and having wheezing in bilateral upper lung mohamud. Patient was started on oxygen at 2 liters/minute and given DuoNeb treatment. While on oxygen after DuoNeb treatment his O2 reach 93% on 2 L via nasal cannula and patient felt his breathing was much improved. After discontinuation of the oxygen his oxygen saturation dropped back down to 88% and patient having very mild shortness of breath. Wheezing improved after DuoNeb treatment but still having rhonchi in bilateral lung bases. I strongly recommended patient go to ED for evaluation for concern of COPD exacerbation given increased phlegm production and worsening shortness of breath. Patient declined evaluation from ED. I did insist on patient going to ED for evaluation however he adamantly refused. I recommend he follows with his mining detail draftsperson as soon as possible for consideration of oxygen therapy. I will also send a prescription for oxygen therapy to begin the process however this would be better managed by his mining detail draftsperson. At this time ordered for stat chest x-ray advised to have patient have it done today and given Augmentin b.i.d. for 7 days for treatment of possible COPD exacerbation. On room air: 79% given 02 2L: 92% After breathing treatment on 2 L of oxygen: 93% After breathing treatment on room air: 83% Plan This note was constructed using voice recognition software. While every effort has been made to ensure accuracy and sterile supervisor, still areas may have been included sometimes these areas may affect the content or meeting of the given symptoms. Total time spent caring for the patient today was 20 minutes. This includes time spent before the visit reviewing the chart, time spent during the visit, and time spent after the visit and documentation. Orders: Orders XR chest 2V Today R05.9 - Cough, unspecified Medications: New [oxygen via NC] 2 L inhalation DAILY 1 units 0RF J44.9 - Chronic obstructive pulmonary disease, unspecified amoxicillin-pot clavulanate 875-125 mg 1 tab PO Q12H 7 days 14 tabs 0RF Refilled citalopram 20 mg PO DAILY 90 tabs 4RF
--- OUTSIDE RECORDS SUMMARY | 2024-04-04 13:48 | XMS_ITS | Encounter Summary ---
Author Organization [facility] Address [address] [place] [address] Care Team Providers Care Upsetter Setter Up Name Role Phone Evelyn Ibrahim MD Primary Care Provider [phone] Reason for Visit * Reason Onset Date Comments Contact Info/ Update 02/18/2024 Encounter Details Date Type Department Care Team (Late st Contact Info) Description 02/18/2024 Telephone [facility] [place] [address] [place] [phone] Dayna Bustillo MD [address] [place], [place] [id number] Contact Info/ Update Social History Tobacco Use Types Packs/Day Years Used Date Smoking Tobacco: Every Day Cigarettes Smokeless Tobacco: Never Alcohol Use Standard Drinks/Week Comments Yes 25 (1 standard drink = 0.6 oz pu re alcohol) Sex and Gender Information Value Date Recorded Sex Assigned at Not on file Gender Identity Not on file Sexual Orientation Not on file Job Start Date Occupation Industry Not on file Not on file Not on file documented as of this encounter Progress Notes * Codey Macias MA - 02/18/2024 10:40 AM EST Pt informed * Philip Wiggins - 02/18/2024 9:54 AM EST Rupert from [facility] called to get updates on the medical clearance needed for pt surgery on the . Informed her of the pt appointment for the . Requested the clearance to be faxed to [phone]. documented in this encounter Plan of Treatment Upcoming Encounters Date Type Department Care Team (Late st Contact Info) Description 06/12/2024 1:00 PM EDT Office Visit Pulmonolgy - [place] [address] [phone] Dayna Bustillo MD [address] [address] documented as of this encounter Visit Diagnoses Not on filedocumented in this encounter Care Teams Upsetter Setter Up Relationship Specialty Start Date End Date Evelyn Ibrahim MD [address] [address] PCP - General Internal Medicine 04/11/21 documented as of this encounter
--- OUTSIDE RECORDS SUMMARY | 2024-04-04 13:48 | XMS_ITS | Clinical Summary ---
Author Organization 175 [facility] Address [address] [place] [address] Phone Care Team Providers Care Baker Paint Name Role Phone Evelyn Ibrahim MD Primary Care Provider [phone] Allergies Active Allergy Reactions Criticality Noted Date Comments Acetaminophen Rash 03/09/2013 Morphine Nausea And Vomiting 03/09/2013 Medications Medication Sig Dispensed Refills Start Date End Date Status buprenorphine-naloxo ne (SUBOXONE) 4-1 mg per SL film Place under the tongue. Active dilTIAZem (TIAZAC) 300 mg 24 hr capsule Take 1 Capsule by mouth daily. Active apixaban (ELIQUIS) 5 mg tablet Take by mouth. Active flecainide (TAMBOCOR) 50 mg tablet Take 1 Tablet by mouth 2 times daily. Active magnesium oxide (MAG-OX) 400 mg magnesium tablet Take by mouth. Acti ve fluticasone-umeclidi nium-vilanterol (Trelegy Ellipta) 200-62.5-25 mcg inhaler Inhale into the lungs. Active ibuprofen (ADVIL,MOTRIN) 600 mg tablet Take 1 tablet by mouth every 8 hours as needed for Pain. 07/30/2020 Active gabapentin (NEURONTIN) 600 mg tablet Take 1.5 Tabs by mouth 4 times daily. 11/13/2019 Active traZODone (DESYREL) 50 mg tablet Take 1 Tab by mouth at bedtime. 11/13/2019 Active clonazePAM (KlonoPIN) 1 mg tablet Take 1/2 tab twice daily for one week Then 1/2 tab x one week 11/07/2019 Active citalopram (CeleXA) 20 mg tablet Take 1 Tab by mouth daily. 09/18/2019 Active zolpidem (AMBIEN) 10 mg tablet Take 1 Tab by mouth every evening. 08/15/2019 Active bisacodyL (Dulcolax, bisacodyl,) 5 mg EC tablet Take 4 tabs 1-2 hours prior to taking the bowel prep 05/03/2019 Active ranitidine HCl (ZANTAC ORAL) TAKE 1 TABLET BY MOUTH TWICE DAILY 11/23/2017 Active Ventolin HFA 90 mcg/actuation inhaler INHALE 2 PUFFS INTO THE LUNGS EVERY 4 HOURS NEEDED FOR COUGH OR WHEEZING 18 g 3 02/15/2024 02/14/2025 Active Active Problems Problem Noted Date Diagnosed Date High cholesterol 12/31/2017 Chronic back pain 12/09/2017 Obstructive sleep apnea 06/16/2017 Anxiety 03/16/2017 Spinal stenosis of lumbar region 12/15/2016 Hyperlipidemia 03/19/2014 Pre-diabetes 03/19/2014 Tobacco use disorder 03/08/2014 COPD (chronic obstructive pulmonary disease) 10/2013 Depression 03/09/2013 GERD (gastroesophageal reflux disease) 4 HTN (hypertension) 03/09/2013 Insomnia 03/09/2013 Encounters Date Type Department Care Team Description 03/13/2024 11:00 AM EST Office Visit Pulmon[address] [address] Dayna Bustillo MD Chronic obstructive pulmonary disease, unspecified COPD type ([facility]/HCC) (Primary Dx); Stage 4 very severe COPD by GOLD classification ([facility]); Tobacco use disorder; Hypoxemia 02/18/[address] [address] Dayna Bustillo MD Contact Info/ Update 02/16/[address] [address] Dayna Bustillo MD from Last 3 Months Immunizations Name Administration Dates Next Due Influenza trivalent, 0.5mL, preservative free (Fluarix; FluLaval; Fluzone) ages 6mo and older (Afluria) 3 years and older 01/06/2016,12/14/2013 Influenza, Unspecified 12/10/2017,02/03/2017,12/2014 Pneumococcal polysaccharide 23 valent (Pneumovax 23) 2yo and older 03/08/2014 Tdap Tetanus diptheria acell ular pertussis (Boostrix; Adacel) 7yo and older 03/08/2014 Surgical History Surgery Date Site/Laterality Comments BACK SURGERY PROCEDURE: HISTORICAL BACK SURGERY Medical History Medical History Date Comments Hyperlipidemia 03/19/2014 DX:Hyperlipidemi a Anxiety 03/16/2017 DX:Anxiety COPD (chronic obstructive pu lmonary disease) ([facility]) 03/09/2013 DX:COPD (chronic obstructive pulmonary disease) ([facility]) Depression 03/09/2013 DX:Depression GERD (gastroesophageal reflux disease) 03/09/2013 DX:GERD (gastroesophageal reflux disease) HTN (hypertension) 03/09/2013 DX:HTN (hyper tension) Insomnia 03/09/2013 DX:Insomnia Pre-diabetes 03/19/2014 DX:Pre-diabetes Spinal stenosis of lumbar region 12/15/2016 DX:Spinal stenosis of lumbar region Tobacco use disorder 03/08/2014 DX:Tobacco use disorder Obstructive sleep apnea 06/16/2017 DX:Obstr uctive sleep apnea Family History Medical History Relation Name Comments Breast cancer Sister 1 Autoimmune disease Neg Hx Colon cancer Neg Hx Coronary artery disease Neg Hx Diabetes Neg Hx Heart attack Neg Hx Heart failure Neg Hx Hyperlipidemia Neg Hx Hypertension Neg Hx Mental illness Neg Hx Prostate cancer Neg Hx Sleep apnea Neg Hx Thyroid disease Neg Hx Relation Name Status Comments Brother 1 Alive Brother 2 Alive Father (Age ?) ? Mother (Age 77) Sister 1 Alive Sister 2 Alive Social History Tobacco Use Types Packs/Day Years Used Date Smoking Tobacco: Every Day Cigarettes Smokeless Tobacco: Never Tobacco Cessation:Ready to Q uit: Not Asked; Counseling Given: Not Answered Comments:Smoking 10 cigs daily Alcohol Use Standard Drinks/Week Comments Yes 25 (1 standard drink = 0.6 oz pu re alcohol) Sex and Gender Information Value Date Recorded Sex Assigned at Not on file Gender Identity Not on file Sexual Orientation Not on file Job Start Date Occupation Industry Not on file Not on file Not on file Obstetrics History Last Filed Vital Signs Vital Sign Reading Time Taken Comments Blood Pressure 128/90 03/13/2024 11:25 AM EST Pulse 83 03/13/2024 11:25 AM EST Temperature 36.6 ??C (97.8 ??F) 03/13/2024 11:[address] Respiratory Rate 24 03/13/2024 11:25 AM EST Oxygen Saturation 90% 03/13/2024 11:25 AM EST Inhaled Oxygen Concentration - - Weight 74.8 kg (165 lb) 03/13/2024 11:25 AM EST Height 182.9 cm (6') 03/13/2024 11:25 AM EST Body Mass Index 22.38 03/13/2024 11:25 AM EST Plan of Treatment Upcoming Encounters Date Type Department Care Team (Late st Contact Info) Description 06/12/2024 1:00 PM EDT Office Visit Pulmonolgy - [place] [address] [facility] [address] [place] [address] Dayna Bustillo MD [address] [facility] [address] [place] [address] Health Maintenance Due Date Last Done Comments Hepatitis A Vaccines (1 of 2 - Risk 2-dose series) 02/27/1988 Hepatitis B Vaccines (1 of 3 - 19+ 3-dose series) 02/27/1988 Pneumococcal Vaccine: Pediatrics (0 to 5 Years) and At-Risk Patients (6 to 64 Years) (2 of 2 - PCV) 03/08/2015 03/08/2014, 12/30/2012 Zoster Vaccines (1 of 2) 2019 Colorectal Cancer Screening: Stool Based Tests (FOBT/FIT) 01/28/2022 Depression Screening 01/28/2022 HIV Screening 01/28/2022 Hepatitis C Screening 01/28/2022 Medicare Annual Wellness Visit 01/28/2022 Social Influencers of Health Screening 01/28/2022 Hypertension/CHF/CAD Annual BMP Blood Test 02/14/2022 08/03/2019 COVID-19 Vaccine ( season) 2023 12/01/2022, 01/14/2022, 07/09/2021, Additional history exists Influenza Vaccine (#1) 2023 , 01/14/2022, 12/17/2020, Additional history exists Cholesterol Screening (Lipid Panel) 08/02/2024 08/03/2019 DTaP,Tdap,and Td Vaccines (4 - Td or Tdap) 08/21/2033 08/22/2023, 03/08/2014, 10/16/2006 HIB Vaccines Aged Out No longer eligi ble based on patient's age to complete this topic HPV Vaccines Aged Out No longer eligi ble based on patient's age to complete this topic IPV Vaccines Aged Out No longer eligi ble based on patient's age to complete this topic MMR Vaccines Aged Out No longer eligi ble based on patient's age to complete this topic Meningococcal ACWY Vaccine Aged Out N o longer eligible based on patient's age to complete this topic RSV Immunization Patients Under 20 months Aged Out No longer eligible based on patient's age to complete this topic Varicella Vaccines Aged Out No longer eligible based on patient's age to complete this topic Procedures Procedure Name Priority Date/Time Associated Diagnosis Comments ANNUAL BMP BLOOD TEST Routine 08/03/2019 LIPID PANEL Routine 08/03/2019 from Last 3 Months or Most Recently Relevant to Health Maintenance Results * Annual BMP Blood Test (08/03/2019) Pathologist [facility] Annual BMP Blood Test abstracted Historical Provider MD JANET RACHEL E * Lipid panel (08/03/2019) Pathologist [facility] LDL/HDL Ratio 4 0 - 4 Triglycerides 124 0 - 150 mg/dL Cholesterol 145 0 - 200 mg/dL HDL 40 40 mg/dL LDL Cholesterol 81 0 - 100 mg/dL Blood Venous blood specimen / Unknown Historical Provider LAB BLOOD ORDERAB LES from Last 3 Months or Most Recently Relevant to Health Maintenance Care Teams Baker Paint Relationship Specialty Start Date End Date Evelyn Ibrahim MD [address] [place] [id number] PCP - General Internal Medicine 04/11/21
--- OUTSIDE RECORDS SUMMARY | 2024-04-04 13:48 | XMS_ITS | Encounter Summary ---
Author Organization [facility] Address [address] [place] [address] Care Team Providers Care Operations Associate Name Role Phone Evelyn Ibrahim MD Primary Care Provider [phone] Reason for Visit * Reason Comments Pre-op Visit Pre-op clearance Hea rt stent Encounter Details Date Type Department Care Team (Latest Contact Info) Description 03/13/2024 11:00 AM EST Office Visit Pulmonolgy - [place] [address] [facility] [address] [place] [phone] Dayna Bustillo MD 175 [facility] [address] [place] [address] Chronic obstructive pulmonary disease, unspecified COPD type (CMS/HCC) (Primary Dx); Stage 4 very severe COPD by GOLD classification (CMS/HCC); Tobacco use disorder; Hypoxemia Social History Tobacco Use Types Packs/Day Years [...] on file documented as of this encounter Last Filed Vital Signs Vital Sign Reading [...] Mass Index 22.38 03/13/2024 11:25 AM EST documented in this encounter Progress Notes * Dayna Bustillo MD - 03/13/2024 11:00 AM EST ADULT PULMONARY CONSULT CHIEF COMPLAINT or REASON FOR CONSULTATION: Pre-op Visit (Pre-op clearance Heart stent) HISTORY OF PRESENT ILLNESS: Nikko Alejandro is a 54 y.o. years old, male with a history of COPD 2nd to tobacco use, asthma since a teenager, AFIB and is an active smoker. He is on Trelegy and prn ventolin. Not fully using hismaintance meds. The patient still smokes and his also smokes with him house. He had ME in 04/2022. Patient is resting O2 sat has been gradually declining but the patient does not want oxygen. Hewill be going for umbilical hernia repair and needs surgical clearance. The patient has chronic cough to clear out the sputum symptoms ALLERGIES: Allergies Allergen Reactions Acetaminophen Rash Morphine Nausea And Vomiting ACTIVE MEDICATIONS: Outpatient Medications Marked as Taking for the 03/13/24 encounter (Office Visit) with Dayna Bustillo MD Medication Sig Dispense Refill apixaban (ELIQUIS) 5 mg tablet Take by mouth. bisacodyL (Dulcolax, bisacodyl,) 5 mg EC tablet Take 4 tabs 1-2 hours prior to taking the bowel prep buprenorphine-naloxone (SUBOXONE) 4-1 mg per [address] film [address] under the tongue. citalopram (CeleXA) 20 mg tablet Take 1 Tab by mouth daily. clonazePAM (KlonoPIN) 1 mg tablet Take 1/2 tab twice daily for one week Then 1/2 tab x one week dilTIAZem (TIAZAC) 300 mg 24 hr capsule Take 1 Capsule by mouth daily. flecainide (TAMBOCOR) 50 mg tablet Take 1 Tablet by mouth 2 times daily. kvxuewkgcam-eknnrtjnffnh-iwvnmdczac (Trelegy Ellipta) 200-62.5-25 mcg inhaler Inhale into the lungs. gabapentin (NEURONTIN) 600 mg tablet Take 1.5 Tabs by mouth 4 times daily. ibuprofen (ADVIL,MOTRIN) 600 mg tablet Take 1 tablet by mouth every 8 hours as needed for Pain. magnesium oxide (MAG-OX) 400 mg magnesium tablet Take by mouth. ranitidine HCl (ZANTAC ORAL) TAKE 1 TABLET BY MOUTH TWICE DAILY traZODone (DESYREL) 50 mg tablet Take 1 Tab by mouth at bedtime. Ventolin HFA 90 mcg/actuation inhaler INHALE 2 PUFFS INTO THE LUNGS EVERY 4 HOURS NEEDED FOR COUGH OR WHEEZING 18 g 3 zolpidem (AMBIEN) 10 mg tablet Take 1 Tab by mouth every evening. PROVIDER ATTESTS THAT THE MEDICATION LIST WAS OBTAINED, REVIEWED AND UPDATED. REVIEW OF SYSTEMS: GENERAL: No wt lost or fever ENT: +snoring Eye: RESPIRATORY: + cough, wheezing and dyspnea CARDIOVASCULAR: No chest pain, leg swelling or palpitations GI: No abdominal discomfort, MUSCULOSKELETAL: +backpain HEMATOLOGY/LYMPHOLOGY No prolonged bleeding, easy bruisability ENDOCRINE: no DM NEURO: No focal weakness : Psych: no depression PAST MEDICAL HISTORY: Patient Active Problem List Diagnosis Date Noted High cholesterol 12/31/2017 Chronic back pain 12/09/2017 Obstructive sleep apnea 06/16/2017 Anxiety 03/16/2017 Spinal stenosis of lumbar region 12/15/2016 Hyperlipidemia 03/19/2014 Pre-diabetes 03/19/2014 Tobacco use disorder 03/08/2014 COPD (chronic obstructive pulmonary disease) ([facility]) 03/09/2013 Depression 03/09/2013 GERD (gastroesophageal reflux disease) 03/09/2013 HTN (hypertension) 03/09/2013 Insomnia 03/09/2013 Past Surgical History: Procedure Laterality Date BACK SURGERY PROCEDURE: HISTORICAL BACK SURGERY FAMILY HISTORY: Family History Problem Relation Name Age of Onset Breast cancer Sister Hyperlipidemia Neg Hx Diabetes Neg Hx Autoimmune disease Neg Hx Colon cancer Neg Hx Prostate cancer Neg Hx Coronary artery disease Neg Hx Mental illness Neg Hx Heart attack Neg Hx Heart failure Neg Hx Sleep apnea Neg Hx Hypertension Neg Hx Thyroid disease Neg Hx OCCUPATION OR OCCUPATION EXPOSURE: SOCIAL HISTORY Social History Socioeconomic History Marital status: Single Spouse name: Not on file Number of children: Not on file Years of education: Not on file Highest education level: Not on file Occupational History Not on file Tobacco Use Smoking status: Every Day Current packs/day: 1.50 Types: Cigarettes Smokeless tobacco: Never Tobacco comments: Smoking 10 cigs daily Substance and Sexual Activity Alcohol use: Yes Alcohol/week: 25.0 standard drinks of alcohol Drug use: No Sexual activity: Not on file Other Topics Concern Not on file Social History Narrative Not on file IMMUNIZATION: Immunization History Administered Date(s) Administered COVID-19 (Pfizer/Comirnaty) 12yo and older 12/01/2022 Influenza trivalent, 0.5mL, preservative free (Fluarix; FluLaval; Fluzone) ages 6mo and older (Afluria) 3 years and older 12/14/2013, 01/06/2016 Influenza, Unspecified 01/09/2015, 02/03/2017, 12/10/2017 Pfizer (ages 12 & older) Bivalent, COVID-19 01/14/2022 Pfizer (ages 12 & older) SARS-CoV-2 COVID-19, mRNA, LNP-S, aleksandra-sucrose, preservative free 07/09/2021 Pfizer SARS-CoV-2 COVID-19, mRNA, LNP-S, preservative free 04/09/2020, 04/30/2020, 12/17/2020 Pneumococcal polysaccharide 23 valent (Pneumovax 23) 2yo and older 03/08/2014 Tdap Tetanus diptheria acellular pertussis (Boostrix; Adacel) 7yo and older 03/08/2014 PHYSICAL EXAM: Visit Vitals BP (!) 128/90 (BP Location: Left arm, Patient Position: Sitting, BP Cuff Size: Adult) Pulse 83 Temp 36.6 ??C (97.8 ??F) (Temporal) Resp 24 Ht 1.829 m (72 ) Wt 74.8 kg (165 lb) SpO2 90% BMI 22.38 kg/m?? Smoking Status Every Day BSA 1.96 m?? APPEARANCE: Alert and in no acute distress. Nicotine odor, looks older EYES: Conjunctiva and sclera normal. NOSE/SINUS: Nares normal. Septum midline. Mucosa No drainage or sinus tenderness. MOUTH/THROAT: no erythema or exudates. Mallampati class 2, no thrush NECK: Neck supple, thyroid symmetric and of normal size. HEART: RRR with normal S1 and S2, no murmurs, no gallops, no JVD appreciated. LUNG: CTA b/l, no wheezing or bronchial bs. + Ronchi ABDOMEN: Bowel sounds normoactive, soft, non-tender EXTREMITIES: no clubbing, + cyanosis, 3+ edema. NEURO: Awake, alert and oriented x 3, no focalization. DIAGNOSTIC DATA: 2017 sleep study- mild ARMAND AHI 6.2/hr. Alpha-1 level= normal CARDIOPULMONARY TEST: Last Pulmonary function Test showed: Impression DATE OF SERVICE: 01/19/2017 INDICATION: COPD SPIROMETRY: The FEV1/FVC of 52% with an FEV1 of 2.01 liters, which is 45% predicted and an FVC of 3.87 litters,which is 68% predicted. Significant response to bronchodilators noted. Maximum voluntary ventilation 44% predicted. LUNG VOLUMES: Total lung capacity (TLC): 120% predicted. Residual volume (RV): 259% predicted End respiratory volume (ERV): 46% predicted DIFFUSION CAPACITY: DLCO 71% predicted. NIOX (FENO): -ppm COMPARISONS: none INTERPRETATION: There is a severe obstructive ventilatory defect consistent with severe COPD. There was a significant response broncho-dilators noted. Moderate to severe decrease in maximum voluntary ventilation secondary to likely deconditioning and worsening dynamic inspiratory capacity. There is both significant hyperinflation and air trapping due to his COPD. There is mild diffusion impairment likely secondary to emphysema or other parenchymal lung condition should be considered. Lyrica correlation warranted. RADIOLOGIST IMAGING: - 11/26/23 - [id number] Report Status:Signed PROCEDURE: Chest CT COMPARISON: 04/19/2023 FINDINGS: LUNGS/PLEURA: Debris seen in the left right and left bronchi. Wedge-shaped opacities at the left lung base near the costophrenic angle are similar compared to prior and likely reflect scarring. New groundglass opacity measuring 18 mm in the left lower lobe, likely inflammatory. Left apical nodule is stable measuring 3 mm. Groundglass nodules in the right lower lobe are new compared to prior. Wedge-shaped, triangular, and juxtapleural opacities at the right lung base near the costophrenic angle laterally are new compared to prior and measure up to 7 mm. Tubular nodule in the right upper lobe measures 9 mm, stable compared to prior. Mild emphysema. Chronic bronchitis. No pleural effusion or pneumothorax. MEDIASTINUM: Thyroid gland is unremarkable. No mediastinal or hilar lymphadenopathy. Multichamber cardiac enlargement. Minimal coronary artery calcification. No pericardial effusion. Esophagus is normal. CHEST WALL: No axillary lymphadenopathy or superficial hematoma. UPPER ABDOMEN:Hepatic steatosis BONES: No acute fracture. Scattered degenerative changes seen throughout the bones. IMPRESSION: New juxtapleural nodules at the right base laterally. Stable juxtapleural nodules at the left lung base laterally. New scattered groundglass nodules throughout the lower lobes measuring up to 18 mm. Findings are likely inflammatory and benign by lung RADS criteria. Lung RADS 2-benign. Recommend continued screening with low-dose chest CT in 12 months. ASSESSMENT: ICD-10-CM ICD-9-CM 1. Chronic obstructive pulmonary disease, unspecified COPD type ([facility]) J44.9 496 2. Stage 4 very severe COPD by GOLD classification ([facility]) J44.9 496 3. Tobacco use disorder F17.200 305.1 4. Hypoxemia R09.02 799.02 PLAN: He has severe COPD, o2 sat 90 to 93% today. Has chronic bronchitis varient of COPD. His surgery involve repair of the umbilical hernia should not be prolonged and he should tolerate it from pulmonarypoint of view. He will be at least moderate risk of pulmonary complications, the most likely will be postop pneumonia given his chronic cough and sputum production. The risk could be significantly reduced he would stop smoking for 6 weeks. The patient is also eligible for oxygen based on his resting O2 sat 89 to 93%. He is not ready for now, his last PFT was in 2017 that showed moderate COPD, clinically he is a lot worse and the results are a lot worse now given his hypoxemia and ongoing smoking. - Follow up with Evelyn Ibrahim MD for the other co-morbilities. - I spend 31 Minutes on this visit. The patient was educated about his problems, where assessment and plan was reviewed and explained, All questions were answered. RETURN TO THE NEXT VISIT: Based on physical exam, symptomatology, tests requested and baseline pulmonary evaluation/disease, I instructed the patient to come back to see me in 6 mths for reevaluation after the test has been done or earlier if the patient needed. Thanks Evelyn Ibrahim MD for allowing me to have the opportunity to assist in the care of this patient. documented in this encounter Plan of Treatment Upcoming Encounters Date Type Department Care Team (Late st Contact Info) Description 06/12/2024 1:00 PM EDT Office Visit Pulmonolgy - [place] [address] [address] Dayna Bustillo MD [address] [address] documented as of this encounter Visit Diagnoses Diagnosis Chronic obstructive pulmonary disease, unspecified COPD type (CMS/[facility])- Primary Stage 4 very severe COPD by GOLD classification ([facility]) Tobacco use disorder Hypoxemia documented in this encounter Care Teams Operations Associate Relationship Specialty Start Date End Date Evelyn Ibrahim MD [address] [facility] [address] [place] [address] PCP - General Internal Medicine 04/11/21 documented as of this encounter
== END 2024-04-04 14:56 | disposition home or self-care (01) ==
PROVIDERS: PCP Internal Medicine
DX: I48.3 Typical atrial flutter (principal); D69.6 Thrombocytopenia, unspecified; J44.9 Chronic obstructive pulmonary disease, unspecified; F17.210 Nicotine dependence, cigarettes, uncomplicated; F32.9 Major depressive disorder, single episode, unspecified; I10 Essential (primary) hypertension; Z98.890 Other specified postprocedural states; K21.00 Gastro-esophageal reflux disease with esophagitis, without bleeding

== ENCOUNTER → 2024-04-04 13:37 | Outpatient (BNVA) | payer MEDICARE, MEDICAID, SELFPAY | PROVIDERS: PCP Internal Medicine | DX: D69.6 Thrombocytopenia, unspecified (principal); I48.3 Typical atrial flutter; F32.9 Major depressive disorder, single episode, unspecified; I10 Essential (primary) hypertension; K21.00 Gastro-esophageal reflux disease with esophagitis, without bleeding; J44.9 Chronic obstructive pulmonary disease, unspecified; F17.210 Nicotine dependence, cigarettes, uncomplicated; Z71.6 Tobacco abuse counseling; Z98.890 Other specified postprocedural states | CPT/HCPCS: 96127; 99212 ==

== ENCOUNTER 2024-04-07 12:45 | Outpatient (REF) | payer MEDICARE, MEDICAID, SELFPAY ==
--- NOTE | ~2024-04-07 | XR_ITS ---
EXAMINATION: XR CHEST 2 VIEWS HISTORY: R05.9 - Cough, unspecified COMPARISON: Comparison is made with the prior examination dated 02/15/2024. FINDINGS: PA and lateral views of the chest are submitted. The lungs remain hyperinflated, but clear. There is no pleural effusion, pneumothorax, or pulmonary vascular congestion. The heart is normal in size. The bones are intact. XR/XR chest 2V IMPRESSION: COPD. No acute cardiopulmonary abnormality. Electronically signed by: Uzair Butler MD 04/07/2024 02:13 PM [facility]Y
[2024-04-07 13:09] LABS: MANUAL DIFF FLAG NO
--- OUTSIDE RECORDS SUMMARY | 2024-04-07 13:25 | XMS_ITS | Encounter Summary ---
Author Organization [facility] Address [address] [place] [address] Care Team Providers Care Payment Processor Name Role Phone Evelyn Ibrahim MD Primary Care Provider [phone] Reason for Visit * Reason Onset Date Comments Contact Info/ Update 02/18/2024 Encounter Details Date Type Department Care Team (Late st Contact Info) Description 02/18/2024 Telephone [facility] [place] [address] [address] [facility] [address] [place] [phone] Dayna Bustillo MD [address] [place], [place] [phone] Contact Info/ Update Social History Tobacco Use [...] - 02/18/2024 9:54 AM EST Rupert from [facility] called to get updates on the medical clearance needed for pt surgery on the . Informed her of the pt appointment for the . Requested the clearance to be faxed to [phone]. documented in this encounter Plan of Treatment Upcoming Encounters Date Type Department Care Team (Late st Contact Info) Description 06/12/2024 1:00 PM EDT Office Visit Pulmonolgy - [place] [address] [address] Dayna Bustillo MD [address] [address] documented as of this encounter Visit Diagnoses Not on filedocumented in this encounter Care Teams Payment Processor Relationship Specialty Start Date End Date Evelyn Ibrahim MD [address] [address] PCP - General Internal Medicine 04/11/21 documented as of this encounter
--- OUTSIDE RECORDS SUMMARY | 2024-04-07 13:25 | XMS_ITS | Encounter Summary ---
Author Organization [facility] Address [address] [place] [address] Care Team Providers Care Security Test Engineer Name Role Phone Evelyn Ibrahim MD Primary Care Provider [phone] Reason for Visit * Reason Comments Pre-op Visit Pre-op clearance Hea rt stent Encounter Details Date Type Department Care Team (Latest Contact Info) Description 03/13/2024 11:00 AM EST Office Visit Pulmonolgy - [place] 175 [facility] [address] [place] [phone] Dayna Bustillo MD 175 [facility] 200 [place] [address] Chronic obstructive pulmonary disease, unspecified COPD type [...] also smokes with him house. He had SC in 04/2022. Patient is resting O2 sat [...] the 03/13/24 encounter (Office Visit) with Dayna uBstillo MD Medication Sig Dispense Refill apixaban (ELIQUIS) [...] 1 Tablet by mouth 2 times daily. duyjwghvmzy-iguyalmjnuoa-xdakmaezyf (Trelegy Ellipta) 200-62.5-25 mcg inhaler Inhale into [...] disorder 03/08/2014 COPD (chronic obstructive pulmonary disease) ([facility]) 03/09/2013 Depression 03/09/2013 GERD (gastroesophageal reflux disease) [...] correlation warranted. RADIOLOGIST IMAGING: - 11/26/23 - 2097 Report Status:Signed PROCEDURE: Chest CT COMPARISON: 04/19/2023 [...] Chronic obstructive pulmonary disease, unspecified COPD type ([facility]) J44.9 496 2. Stage 4 very severe COPD by GOLD classification ([facility]) J44.9 496 3. Tobacco use disorder F17.200 [...] 1:00 PM EDT Office Visit Pulmonolgy - [place] [address] [address] Dayna Bustillo MD [address] [address] documented as of this encounter Visit Diagnoses Diagnosis Chronic obstructive pulmonary disease, unspecified COPD type ([facility])- Primary Stage 4 very severe COPD by GOLD classification ([facility]) Tobacco use disorder Hypoxemia documented in this encounter Care Teams Security Test Engineer Relationship Specialty Start Date End Date Evelyn Ibrahmi MD 200 [facility] [place] [address] PCP - General Internal Medicine 04/11/21 documented as of this encounter
--- OUTSIDE RECORDS SUMMARY | 2024-04-07 13:25 | XMS_ITS | Clinical Summary ---
Author Organization 175 [facility] Address 175 [place] [address] Phone Care Team Providers Care P[employer] Ticket Checker Name Role Phone Evelyn Ibrahim MD Primary Care Provider Allergies Active Allergy Reactions Criticality Noted Date [...] Description 03/13/2024 11:00 AM EST Office Visit [address]mon[address] [address] Dayna Bustillo MD Chronic obstructive pulmonary disease, unspecified COPD type ([facility]) (Primary Dx); Stage 4 very severe COPD by GOLD classification ([facility]); Tobacco use disorder; Hypoxemia 02/18/[address] [address] Dayna Bustillo MD Contact Info/ Update 02/16/[address] [address] Dayna Bustillo MD from Last [...] DX:Anxiety COPD (chronic obstructive pu lmonary disease) ([facility]) 03/09/2013 DX:COPD (chronic obstructive pulmonary disease) ([facility]) Depression 03/09/2013 DX:Depression GERD (gastroesophageal reflux [...] 1:00 PM EDT Office Visit Pulmonolgy - [place] 175 [facility] [address] [place] [address] Dayna Bustillo MD 175 [facility] [address] [place] [address] Health Maintenance Due Date Last Done Comments [...] * Annual BMP Blood Test (08/03/2019) Pathologist [facility] Annual BMP Blood Test abstracted Historical Provider MD JANET RACHEL E * Lipid panel (08/03/2019) Pathologist [facility] LDL/HDL Ratio 4 0 - 4 Triglycerides 124 0 - 150 mg/dL Cholesterol 145 0 - 200 mg/dL HDL 40 40 mg/dL LDL Cholesterol 81 0 - 100 mg/dL Blood Venous blood specimen / Unknown Historical Provider LAB BLOOD ORDERAB LES from Last 3 Months or Most Recently Relevant to Health Maintenance Care Teams P[employer] Ticket Checker Relationship Specialty Start Date End Date Evelyn Ibrahim MD [address] [place] [id number] PCP - General Internal Medicine 04/11/21
[2024-04-07 13:54] LABS: Basophils Absolute Auto 0.1 X10*3/uL (0.0-0.2); Basophils Percent Auto 1.2 % (0-2); Eosinophils Percent Auto 0.7 % (0-4); Hematocrit 39.4 % (42.0-52.0); Hemoglobin 13.8 g/dl (14.0-18.0); Imm Gran Abs Auto 0.03 X10*3/uL (0.00-0.03); Imm Gran Pct Auto 0.5 % (0.0-0.4); Lymphocytes Absolute Auto 1.4 X10*3/uL (1.2-4.9); Lymphocytes Percent Auto 23.3 % (20-40); Mean Corpuscular Hemoglobin 38.1 pg (27.0-33.0); Mean Corpuscular Volume 108.8 fL (80.0-98.0); Mean Platelet Volume 10.8 fL (9.4-12.4); Monocytes Percent Auto 16.1 % (2-11); NRBC Pct Auto 0.7 /100WBC (0.0-0.2); Neutrophils Absolute Auto 3.5 x10*3/uL (2.0-8.3); Neutrophils Percent Auto 58.2 % (45-73); Red Blood Count 3.62 X10*6/uL (4.60-5.80); Red Cell Distribution Width 14.9 % (11.0-16.0)
[2024-04-07 13:55] LABS: Platelet Count 86 X10*3/uL (160-400)
[2024-04-07 14:29] LABS: Alanine Aminotransferase 28 U/L (0-40); Albumin Level 2.4 g/dL (3.5-5.0); Alkaline Phosphatase 265 U/L (39-117); Anion Gap 15 (12-20); Aspartate Amino Transferase 121 U/L (5-37); Bilirubin Total 1.5 mg/dL (0.0-1.0); Blood Urea Nitrogen 11 mg/dL (9-16); Calcium 7.6 mg/dL (8.4-10.2); Carbon Dioxide 37 mmol/L (22-29); Chloride 88 mmol/L (96-108); Cholesterol 113 mg/dL (<200); Estimated Glomerular Filt Rate > 60; Glucose Fasting 111 mg/dL (60-99); Glucose Random 111 mg/dL (60-115); HDL Cholesterol 45 mg/dL (>40); LDL Cholesterol Calculated 51 mg/dL (<100); Sodium 137 mmol/L (135-145); Total Protein 6.6 g/dL (6.5-8.0); Triglycerides 85 mg/dL (<150)
== END 2024-04-07 12:46 | disposition home or self-care (01) ==
LOC: HO.XRAY 12:45
PROVIDERS: Internal Medicine; Absent Provider Internal Medicine Medical Oncology
DX: Z13.220 Encounter for screening for lipoid disorders (principal); Z13.29 Encounter for screening for other suspected endocrine disorder; Z13.9 Encounter for screening, unspecified; Z13.0 Encounter for screening for diseases of the blood and blood-forming organs and certain disorders involving the immune mechanism; D69.6 Thrombocytopenia, unspecified; R05.9 Cough, unspecified; J44.9 Chronic obstructive pulmonary disease, unspecified
CPT/HCPCS: 36415; 71046; 80053; 80061; 84443; 85025

== ENCOUNTER → 2024-04-07 13:10 | Outpatient (BNV) | payer MEDICARE, MEDICAID, SELFPAY | PROVIDERS: Absent Provider Internal Medicine Medical Oncology; Visit Provider Radiology Diagnostic Radiology | DX: R05.9 Cough, unspecified (principal) | CPT/HCPCS: 71046 ==

== ENCOUNTER 2024-05-02 09:58 | Outpatient (AMB) | payer MEDICARE, MEDICAID, SELFPAY ==
--- NOTE | 2024-05-02 10:21 | A.OFFPC_ITS ---
Vital Signs 05/02/24 10:22 Height 6 ft Weight 148 lb BMI 20.1 BP 102/68 Blood Pressure Location Lt brachial Position Sitting Pulse 67 Pulse Source Pulse Oximeter Pulse Oximetry (%) 96 Oxygen Delivery Method Nasal Cannula Intake Visit Reasons: f/u COPD Lapidarist Required: No Accompanied by: Self / Same As Patient Allergies morphine Allergy (Severe, Verified 05/02/24 10:27) Anaphylaxis acetaminophen [From Tylenol] Allergy (Intermediate, Verified 05/02/24 10:27) Gastrointestinal Upset Medication List - Last Reconciled 05/02/24 by Karma Saba PA-C albuterol sulfate 90 mcg/actuation (Ventolin HFA) 90 mcg inhalation Q4-6H PRN atorvastatin 20 mg PO BEDTIME bisacodyl (Dulcolax (bisacodyl)) 10 mg (2 x 5 mg) PO BEDTIME buprenorphine-naloxone 8-2 mg 1 tab sublingual TID citalopram 20 mg PO DAILY clonazepam (Klonopin) 1 mg PO BID PRN diltiazem HCl ER (Tiadylt ER) 300 mg PO DAILY flecainide 50 mg PO BID npxyxnrxifo-xbwxpoiva-wylcrsix 200-62.5-25 mcg (Trelegy Ellipta) 1 ea inhalation DAILY magnesium oxide 500 mg PO DAILY metoprolol tartrate 100 mg PO BID 90 days ondansetron 4 mg PO Q8H PRN [oxygen via NC 2 L inhalation DAILY] pantoprazole 40 mg PO DAILY@0630 potassium 99 mg PO DAILY potassium chloride ER 20 mEq PO DAILY prucalopride (Motegrity) 2 mg PO DAILY Tobacco use date assessed: 05/02/24 Dental Screening Dental Screen Date: 05/02/24 Did you have a dental visit in the last 12 months?: No Did you have a dental problem in the last 6 months where you did not have access to dental care?: No Was dental information given to patient?: Patient declined HPI f/u COPD 2 HPI Details 54-year-old male with past medical histo ry of hypercholesterolemia, hypertension, GERD with Barretts, constipation, asthma, tobacco abuse, erectile dysfunction, atrial flutter for polysubstance abuse last seen 04/2024 coming in for follow up. In review of the notes, patient last saw his vice president medical affairs 03/13/2024 recommended continuing on Trelegy and using albuterol as needed was cleared by pulmonology for umbilical hernia repair and they were recommending oxygen at that time however patient was declining. Presenting with follow-up on COPD management and associated symptoms. Reports fatigue despite improved breathing with 2L/min oxygen at home. Feels more tired when using it at night, though it improves sleep quality. He is supposed to be using CPAP but does not use this machine. Persistent nausea for years; symptoms present in mornings and postprandially, with decreased appetite and early satiety. History of myocardial infarction three years ago with ongoing weakness since then; exercise intolerance noted. Continues to smoke but has reduced usage; acknowledges impact on respiratory status. Under care of a pants maker, vice president medical affairs, and casting cleaner. 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 Mother Chronic a-fib Sister Chronic a-fib Breast cancer Ovarian cancer Social History Household Members: Friend(s) Housing: House Are you a primary pharmacist critical care to a significant other at home: No Do you presently have visiting nurse or other home services: No Alcohol intake: current Alcohol intake frequency: a few times a week Alcohol type: beer and hard liquor Patient Tobacco Use Status: Current everyday Tobacco user Tobacco use type: Cigarette Cigarette Packs Per Day: 0.5 Cigarettes Per Day: 10.0 e-Cigarette/Vaping Use: Never Used Second Hand Smoke Exposure: Yes Advance Directives Date on File: 07/28/22 service: No Current occupational status: disabled Cognitive needs: No Hearing needs: No Vision needs: Yes Questionnaire Thrive Questionnaire Date Thrive assessed: 04/04/24 AGUSTÍN-7 AMB Questionnaire AGUSTÍN-7 Date AGUSTÍN - 7 assessed: 04/04/24 Source: Developed by Drs. Uzair Napoles, Coretta Bernal, Saul Resendiz and colleagues, with an educational mabel from [employer]. Review of Systems Const Denies body aches, Denies chills, Denies fever(s), Denies headache(s) and Denies poor appetite Eyes Reports no additional complaints ENT Denies dysphagia, Denies dizziness, Denies headache(s) and Denies odynophagia Card Denies chest pain, Denies syncope, Denies edema, Denies irregular heart rhythm, Denies lightheadedness and Denies dyspnea Resp Denies change in phlegm color, Reports cough, Denies hemoptysis, Denies excessive phlegm production and Denies dyspnea GI Denies abdominal pain, Denies constipation, Denies dysphagia, Reports dyspepsia, Denies diarrhea, Reports nausea, Denies odynophagia and Denies vomiting Reports no additional complaints Musc Reports no additional complaints and Denies abnormal gait Skin/Breast Reports system reviewed and no additional complaints, except as documented Neuro Denies abnormal gait, Denies dizziness, Denies syncope and Denies headache(s) Psych Reports no additional complaints Physical exam (Primary Care) Vital Signs: Last Vital Signs Pulse 67 05/02/24 10:22 BP 102/68 05/02/24 10:22 Pulse Ox 96 05/02/24 10:22 Oxygen Delivery Method Nasal Cannula 05/02/24 10:22 BMI result Body Mass Index 20.1 Tobacco/Smoking Status: Tobacco use Status Tobacco use date assessed 05/02/24 05/02/24 10:30 Patient Tobacco Use Status Current everyday Tobacco 05/02/24 10:23 Tobacco use type Cigarette 05/02/24 10:23 e-Cigarette/Vaping Use Never Used 05/02/24 10:23 Thrive Assessment: Date of Thrive Assessment Date Thrive assessed 04/04/24 05/02/24 10:23 Const General: cooperative, healthy appearing, comfortable and no acute distress Orientation/consciousness: patient oriented x3 HENMT Head: Yes normocephalic Ears: hearing grossly normal bilaterally General nose exam: Normal external nose present Eyes General: appearance normal, both eyes and all related structures Conjunctivae: conjunctivae normal Neck Neck: Yes full ROM and Yes no lymphadenopathy Resp Effort & Inspection: normal respiratory effort Auscultation: clear to auscultation bilaterally, no crackles, no rales, no rhonchi and no wheezes Cardio Rate: regular rate Rhythm: regular rhythm Skin General skin exam: no rashes or lesions noted Neuro General: patient oriented x3 Gait exam (Neuro): Normal gait present Extrem General: Yes normal to inspection, Yes full ROM and No edema Psych Affect: normal affect Attitude: cooperative Insight: Good insight present (Psych) Judgement: Good judgement present (Psych) Coding Level of Care Code Est Pt Level 4 (58807) Diagnoses COPD (chronic obstructive pulmonary disease) J44.9 Typical atrial flutter I48.3 Atrial flutter type: typical Thrombocytopenia D69.6 Cigarette smoker F17.210 Hypertension I10 S/P cardiac cath Z98.890 Gastroesophageal reflux disease with esophagitis without hemorrhage K21.00 Esophagitis bleeding: without hemorrhage Esophagitis presence: with esophagitis Hypokalemia E87.6 Assessment & Plan Assessment & Plan (1) COPD (chronic obstructive pulmonary disease): Code(s): J44.9 - Chronic obstructive pulmonary disease, unspecified Category: Medical Plan: Patient was recently started on nasal cannula 3 liters/minute of oxygen due to hypoxemia and recommended to follow up with pulmonology. Patient has not yet seen his vice president medical affairs and is unsure of next visit date. I strongly encouraged him to reach out to the office as they likely are not aware he is on oxygen therapy. (2) Atrial flutter: Code(s): I48.92 - Unspecified atrial flutter Category: Medical Qualifiers: Atrial flutter type: typical Qualified Code(s): I48.3 - Typical atrial flutter Plan: Recently seen by Cardiology Hu Vasc score of 3 recommending anticoagulation however given thrombocytopenia not a good candidate at this time. Recommending n on pharmacological measures continue to follow with Cardiology. On metoprolol for rate control (3) Thrombocytopenia: Code(s): D69.6 - Thrombocytopenia, unspecified Category: Medical Plan: Patient recently seen by pants maker deemed not to be a good candidate for anticoagulation due to thrombocytopenia. Advised to follow up with Hematology he is unsure of his last visit date or if he missed an appointment. I did send a message to the hematology office to confirm as he needs to be following with them regularly. (4) Cigarette smoker: Code(s): F17.210 - Nicotine dependence, cigarettes, uncomplicated Category: Social Hx Plan: Smoking cigarettes and the use of tobacco can be harmful. We discussed the importance of stopping and options to aid in smoking cessation. Declines lung cancer screening (5) Hypertension: Code(s): I10 - Essential (primary) hypertension Category: Medical Plan: Continue on current blood pressure medication. Avoid salt intake and encourage healthy diet and regular exercise. (6) S/P cardiac cath: Comment: 07/28/22 LM, LCx, RCA normal, LAD minimal irregularities Code(s): Z98.890 - Other specified postprocedural states Category: Surgical Plan: Advised good control of cholesterol, blood sugars and blood pressures. (7) GERD (gastroesophageal reflux disease): Code(s): K21.9 - Gastro-esophageal reflux disease without esophagitis Category: Medical Qualifiers: Esophagitis bleeding: without hemorrhage Esophagitis presence: with esophagitis Qualified Code(s): K21.00 - Gastro-esophageal reflux disease with esophagitis, without bleeding Plan: Avoid trigger foods such as citrus, tomato products, soda, caffeine, spicy foods and other foods that may be irritating to your stomach. Avoid laying flat 3-4 hours after eating and elevate the head of the bed 30 degrees to prevent acid from moving into the esophagus. Continue on pantoprazole (8) Hypokalemia: Code(s): E87.6 - Hypokalemia Category: Medical Plan: Plan to repeat potassium patient is on potassium supplement from Hematology. Plan The plan involves close monitoring of COPD management with an emphasis on strict adherence to CPAP therapy and smoking cessation. Antiemetic medication will be provided to alleviate nausea, while continuation of pantoprazole is advised for reflux. Follow-up with a casting cleaner is necessary to monitor potassium levels and low platelet counts. Coordination with his pants maker will ensure optimized management post-myocardial infarction. A vice president medical affairs consultation will be essential to reassess oxygen therapy needs. This note was constructed using voice recognition software. While every effort has been made to ensure accuracy and assistant technician, still areas may have been included sometimes these areas may affect the content or meeting of the given symptoms. Total time spent caring for the patient today was 30 minutes. This includes time spent before the visit reviewing the chart, time spent during the visit, and time spent after the visit and documentation. Patient was informed and verbally consented to the use of an ambient scribe for clinic note documentation during this visit. Orders: Orders Potassium Today E87.6 - Hypokalemia Medications: New ondansetron 4 mg PO Q8H PRN 30 tabs 0RF nausea and vomiting
[2024-05-02 10:22] VITALS: BP 102/68; PULSE 67; O2SAT 96; BMI 20.1
--- OUTSIDE RECORDS SUMMARY | 2024-05-02 11:54 | XMS_ITS | Encounter Summary ---
Author Organization [facility] Address [address] [place] [address] Care Team Providers Care Clasp Machine Operator Name Role Phone Evelyn Ibrahim MD Primary Care Provider [phone] Encounter Details Date Type Department Care Team ([facility] st Contact Info) Description 04/13/2024 Telephone Pulmonol - [place] [address] [place] [phone] Dayna Bustillo MD [address] [place] [address] Social History Tobacco Use Types Packs/Day Years Used Date Smoking Tobacco: Every Day Cigarettes Smokeless Tobacco: Never Comments:Smoking 10 cigs christophe ly Alcohol Use Standard Drinks/Week Comments Yes 25 (1 standard drink = 0.6 oz pu re alcohol) Sex and Gender Information Value Date Recorded Sex Assigned at Not on file Legal Sex Male 4:48 PM EST Gender Identity Not on file Sexual Orientation Not on file documented as of this encounter Progress Notes * Dayna Bustillo MD - 04/18/2024 5:43 PM EST Spoke to him, has o2 * Brenna Loya MA - 04/13/2024 2:40 PM EST I called patient in regards that his PCP put him in oxygen but he wants you to give him a call * Brennan Boykin - 04/13/2024 2:32 PM EST Patient called to inform provider that his PCP put patient on Oxygen. Patient will lek to discuss this with provider. Please advice documented in this encounter Plan of Treatment Upcoming Encounters Date Type Department Care Team (Late st Contact Info) Description 06/12/2024 1:00 PM EDT Office Visit Pulmonolgy - [place] [address] [phone] Dayna Bustillo MD [address] [facility] [address] [place] [address] [place] [phone] documented as of this encounter Visit Diagnoses Not on filedocumented in this encounter Care Teams Clasp Machine Operator Relationship Specialty Start Date End Date Evelyn Ibrahim MD [address] [place] [phone] PCP - General Internal Medicine 04/11/21 documented as of this encounter
--- OUTSIDE RECORDS SUMMARY | 2024-05-02 11:54 | XMS_ITS | Clinical Summary ---
Author Organization 175 [facility] Address 175 [place] [address] Phone Care Team Providers Care Oral Surgery Physician Name Role Phone Evelyn Ibrahim MD Primary Care Provider [phone] Allergies Active Allergy Reactions Criticality Noted Date Comments Acetaminophen Rash 03/09/2013 Morphine Nausea And Vomiting 03/09/2013 Medications buprenorphine-n aloxone (SUBOXONE) 4-1 mg per SL film Place under the tongue. Active dilTIAZem (TIAZAC) 300 mg 24 hr capsule Take 1 Capsule by mouth daily. Active apixaban (ELIQUIS) 5 mg tablet Take by mouth. Active flecainide (TAMBOCOR) 50 mg tablet Take 1 Tablet by mouth 2 times daily. Active magnesium oxide (MAG-OX) 400 mg magnesium tablet Take by mouth. Active fluticasone-ume clidinium-vilan terol (Trelegy Ellipta) 200-62.5-25 mcg inhaler Inhale into [...] COUGH OR WHEEZING 18 g 3 02/15/2024 02/15/20 Active Active Problems Problem Noted Date Diagnosed Date High cholesterol 12/31/2017 Chronic back pain 12/09/2017 Obstructive sleep apnea 06/16/2017 Anxiety 03/16/2017 Spinal stenosis of lumbar region 12/15/2016 Hyperlipidemia 03/19/2014 Pre-diabetes 03/19/2014 Tobacco use disorder 03/08/2014 COPD (chronic obstructive pulmonary disease) 10/2013 Depression 03/09/2013 GERD (gastroesophageal reflux disease) 4 HTN (hypertension) 03/09/2013 Insomnia 03/09/2013 Encounters Date Type Department Care Team Description 04/13/2024 Telephone [address] [phone] Dayna Bustillo MD 03/13/2024 11:00 AM EST Office Visit Pulmonol[address] [phone] Dayna Bustillo MD Chronic obstructive pulmonary disease, unspecified COPD type (CMS/HCC) (Primary Dx); Stage 4 very severe COPD by GOLD classification ([facility]); Tobacco use disorder; Hypoxemia 02/18/2024 Telephone Pulmonolgy [address] [phone] Dayna Bustillo MD Contact Info/ Update 02/16/[address] [facility] [address] [phone] Dayna Bustillo MD from Last 3 Months [...] DX:Anxiety COPD (chronic obstructive pu lmonary disease) ([facility]) 03/09/2013 DX:COPD (chronic obstructive pulmonary disease) ([facility]) Depression 03/09/2013 DX:Depression GERD (gastroesophageal reflux [...] on file Sexual Orientation Not on file Obstetrics History Last Filed [...] 1:00 PM EDT Office Visit Pulmonolgy - [place] 175 [facility] [address] [place] [phone] Dayna Bustillo MD 175 [facility] [address] [place] [address] Health Maintenance Due Date Last Done Comments Hepatitis A Vaccines (1 of 2 - Risk 2-dose series) 02/27/1988 Hepatitis B Vaccines (1 of 3 - 19+ 3-dose series) 02/27/1988 Pneumococcal Vaccine: 50+ Years (2 of 2 - PCV) 03/08/2015 03/08/2014, 12/30/2012 Pneumococcal Vaccine: Pediatrics (0 to 5 Years) [...] Additional history exists Influenza Vaccine (#1) 2023 3, 01/14/2022, 12/17/2020, Additional history exists Cholesterol Screening [...] patient's age to complete this topic Meningococcal B Vacine Aged Out No lo nger eligible based on patient's age to complete [...] * Annual BMP Blood Test (08/03/2019) Pathologist [facility] Annual BMP Blood Test abstracted Historical Provider HEALTH MAINTENANCE Final Result * Lipid panel (08/03/2019) Pathologist [facility] LDL/HDL Ratio 4 0 - 4 Triglycerides 124 0 - 150 mg/dL Cholesterol 145 0 - 200 mg/dL HDL 40 >=40 mg/dL LDL Cholesterol 81 0 - 100 mg/dL Blood Venous blood specimen / Unknown Historical Provider LAB BLOOD ORDERABLES Marita l Result from Last 3 Months or Most Recently Relevant to Health Maintenance Insurance MEDICARE MEDICAID - [place] Care Teams Oral Surgery Physician Relationship Specialty Start Date End Date Evelyn Ibrahim MD [address] [place] [phone] PCP - General Internal Medicine 04/11/21
== END 2024-05-02 11:13 | disposition home or self-care (01) ==
PROVIDERS: PCP Internal Medicine
DX: J44.9 Chronic obstructive pulmonary disease, unspecified (principal); I48.3 Typical atrial flutter; D69.6 Thrombocytopenia, unspecified; F17.210 Nicotine dependence, cigarettes, uncomplicated; I10 Essential (primary) hypertension; Z98.890 Other specified postprocedural states; K21.00 Gastro-esophageal reflux disease with esophagitis, without bleeding; E87.6 Hypokalemia

== ENCOUNTER → 2024-05-02 09:58 | Outpatient (BNVA) | payer MEDICARE, MEDICAID, SELFPAY | PROVIDERS: PCP Internal Medicine | DX: J44.9 Chronic obstructive pulmonary disease, unspecified (principal); I48.3 Typical atrial flutter; D69.6 Thrombocytopenia, unspecified; I10 Essential (primary) hypertension; K21.00 Gastro-esophageal reflux disease with esophagitis, without bleeding; E87.6 Hypokalemia; F17.210 Nicotine dependence, cigarettes, uncomplicated; Z98.890 Other specified postprocedural states; Z71.6 Tobacco abuse counseling | CPT/HCPCS: 99212 ==

== ENCOUNTER 2024-05-22 09:35 | Outpatient (REF) | payer MEDICARE, MEDICAID, SELFPAY ==
[2024-05-22 13:29] LABS: MANUAL DIFF FLAG NO
[2024-05-22 13:39] LABS: Basophils Absolute Auto 0.1 X10*3/uL (0.0-0.2); Basophils Percent Auto 1.3 % (0-2); Eosinophils Absolute Auto 0.1 X10*3/uL (0.0-0.4); Hematocrit 32.9 % (42.0-52.0); Hemoglobin 11.7 g/dl (14.0-18.0); Imm Gran Abs Auto 0.02 X10*3/uL (0.00-0.03); Imm Gran Pct Auto 0.3 % (0.0-0.4); Lymphocytes Absolute Auto 1.2 X10*3/uL (1.2-4.9); Lymphocytes Percent Auto 19.4 % (20-40); Mean Corpuscular HGB Conc 35.6 g/dl (31.0-36.0); Mean Corpuscular Hemoglobin 37.6 pg (27.0-33.0); Mean Corpuscular Volume 105.8 fL (80.0-98.0); Mean Platelet Volume 9.7 fL (9.4-12.4); Monocytes Absolute Auto 0.8 X10*3/uL (0.1-1.2); Neutrophils Absolute Auto 3.8 x10*3/uL (2.0-8.3); Platelet Count 186 X10*3/uL (160-400); Red Blood Count 3.11 X10*6/uL (4.60-5.80); Red Cell Distribution Width 14.5 % (11.0-16.0)
[2024-05-22 14:07] LABS: Alanine Aminotransferase 12 U/L (0-40); Albumin Level 2.7 g/dL (3.5-5.0); Alkaline Phosphatase 183 U/L (39-117); Anion Gap 12 (12-20); Aspartate Amino Transferase 56 U/L (5-37); Bilirubin Total 1.1 mg/dL (0.0-1.0); Blood Urea Nitrogen 9 mg/dL (9-16); Calcium 7.7 mg/dL (8.4-10.2); Carbon Dioxide 39 mmol/L (22-29); Chloride 87 mmol/L (96-108); Estimated Glomerular Filt Rate > 60; Glucose Random 89 mg/dL (60-115); Potassium 2.5 mmol/L (3.3-5.1); Sodium 135 mmol/L (135-145); Total Protein 6.6 g/dL (6.5-8.0)
== END 2024-05-22 09:36 | disposition home or self-care (01) ==
LOC: HO.HMGCLDS 09:35
PROVIDERS: Referring Provider Internal Medicine Medical Oncology
DX: D69.6 Thrombocytopenia, unspecified (principal)
CPT/HCPCS: 36415; 80053; 85025

== ENCOUNTER 2024-05-22 10:02 | Outpatient (AMB) | payer MEDICARE, MEDICAID, SELFPAY ==
--- NOTE | 2024-05-22 11:00 | AM.OFFWIN_ITS ---
Intake Vital Signs 05/22/24 11:01 Weight 158 lb BP 130/78 Blood Pressure Location Lt brachial Position Sitting Intake Visit Reasons: EP-b/l ears block Intake Note: Patient here for bilat ear discomfort and difficulty hearing which has been going on for a couple of weeks on and off now. Patient Tobacco Use Status: Current everyday Tobacco user Allergies morphine Allergy (Severe, Verified 05/22/24 11:02) Anaphylaxis acetaminophen [From Tylenol] Allergy (Intermediate, Verified 05/22/24 11:02) Gastrointestinal Upset Do you need a note to return to daycare/school/sports/work: No HPI HPI Comments History of Present Illness Details Pt is a 54yr old male who is here c/o 3 weeks of reduced hearing in both ears with a slight pain in both ears. Denies pain or drainage. Denies hx of wax in his ears and uses qtips lightly. Denies fevers. States he has never had his ears flushed before it is agreeable to doing it today. 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 Mother Chronic a-fib Sister Chronic a-fib Breast cancer Ovarian cancer Social History Household Members: Friend(s) Housing: House Are you a primary healthcare project manager to a significant other at home: No Do you presently have visiting nurse or other home services: No Alcohol intake: current Alcohol intake frequency: a few times a week Alcohol type: beer and hard liquor Patient Tobacco Use Status: Current everyday Tobacco user Tobacco use type: Cigarette Cigarette Packs Per Day: 0.5 Cigarettes Per Day: 10.0 e-Cigarette/Vaping Use: Never Used Second Hand Smoke Exposure: Yes Advance Directives Date on File: 07/28/22 service: No Current occupational status: disabled Cognitive needs: No Hearing needs: No Vision needs: Yes Review of Systems Const All systems reviewed & are unremarkable except as noted in HPI and below Physical Exam Vital Signs: Last Vital Signs BP 130/78 05/22/24 11:01 Const General: cooperative, healthy appearing, comfortable and no acute distress Orientation/consciousness: patient oriented x3 HEENT Head: Yes normal to inspection Ears: mastoids normal, Abnormal EAC present cerumen impaction and unable to visualize TM (cerumen blockage) General nose exam: Normal external nose present Face and sinus: Yes normal facial exam Resp Effort & Inspection: normal respiratory effort and able to speak in complete se ntences Neuro General: patient oriented x3 Office Procedures Cerumen Removal From which ear canal was the cerumen removed: bilateral Removal: irrigation, otoscope w/curette and cerumen loop/spoon Notes: patient tolerated procedure well, no complications and ear canal clear [id number] Irrigation/Lavage Assessment & Plan Assessment & Plan (1) Bilateral hearing loss due to cerumen impaction: Code(s): H61.23 - Impacted cerumen, bilateral Plan: Bilateral ears flushed with no complications, both ear canals clear, patient reports improved hearing on the right side but states the left side still has some reduced hearing, repeat exam showed otitis media. Sent amoxicillin to [facility] (2) Otitis media: Code(s): H66.90 - Otitis media, unspecified, unspecified ear Qualifiers: Otitis media type: suppurative Chronicity: acute Laterality: left Recurrence: non-recurrent Spontaneous tympanic membrane rupture: without spontaneous rupture Qualified Code(s): H66.002 - Acute suppurative otitis media without spontaneous rupture of ear drum, left ear Plan: Once the ears flushed, the right tympanic membrane looked completely normal but the left tympanic membrane there was a loss of bony landmarks with some erythema and slight bulging. Sent amoxicillin to pharmacy to treat for otitis media. Medications: New amoxicillin 875 mg PO Q12H 10 tabs 0RF Coding Level of Care Code Est Pt Level 4 (76123) Diagnoses Bilateral hearing loss due to cerumen impaction H61.23 Non-recurrent acute suppurative otitis media of left ear without spontaneous rupture of tympanic membrane H66.002 Otitis media type: suppurative Chronicity: acute Laterality: left Recurrence: non-recurrent Spontaneous tympanic membrane rupture: without spontaneous rupture CPT Codes Office Procedure - CPT: 65499-Zzb Irrigation/Lavage ([id number])
[2024-05-22 11:01] VITALS: BP 130/78
== END 2024-05-22 12:03 | disposition home or self-care (01) ==
PROVIDERS: Visit Provider Physician Assistant
DX: H66.002 Acute suppurative otitis media without spontaneous rupture of ear drum, left ear (principal); H61.23 Impacted cerumen, bilateral

== ENCOUNTER 2024-06-13 11:59 | Outpatient (REF) | payer MEDICARE, MEDICAID, SELFPAY ==
[2024-06-13 13:42] LABS: Potassium 4.4 mmol/L (3.3-5.1)
--- OUTSIDE RECORDS SUMMARY | 2024-06-13 14:44 | XMS_ITS | Clinical Summary ---
Author Organization 175 [facility] Address 175 [place] [address] Phone Care Team Providers Care Antique Collector Name Role Phone Evelyn Ibrahim MD Primary Care Provider [phone] Allergies Active Allergy Reactions Criticality Noted Date Comments Acetaminophen Rash 03/09/2013 Morphine Nausea And Vomiting 03/09/2013 Medications buprenorphine- naloxone (SUBOXONE) 4-1 mg per SL film Place under the tongue. Active dilTIAZem (TIAZAC) 300 mg 24 hr capsule Take 1 Capsule by mouth daily. Active apixaban (ELIQUIS) 5 mg tablet Take by mouth. Active flecainide (TAMBOCOR) 50 mg tablet Take 1 Tablet by mouth 2 times daily. Active magnesium oxide (MAG-OX) 400 mg magnesium tablet Take by mouth. Active fluticasone-um eclidinium-jero anterol (Trelegy Ellipta) 200-62.5-25 mcg inhaler Inhale into the lungs. Active ibuprofen (ADVIL,MOTRIN) 600 mg tablet Take 1 tablet by mouth every 8 hours as needed for Pain. 1 Active gabapentin (NEURONTIN) 600 mg tablet Take 1.5 Tabs by mouth 4 times daily. 0 Active traZODone (DESYREL) 50 mg tablet Take 1 Tab by mouth at bedtime. 0 Active clonazePAM (KlonoPIN) 1 mg tablet Take 1/2 tab twice daily for one week Then 1/2 tab x one week 0 Active citalopram (CeleXA) 20 mg tablet Take 1 Tab by mouth daily. 0 Active zolpidem (AMBIEN) 10 mg tablet Take 1 Tab by mouth every evening. 0 Active bisacodyL (Dulcolax, bisacodyl,) 5 mg EC tablet Take 4 tabs 1-2 hours prior to taking the bowel prep 0 Active ranitidine HCl (ZANTAC ORAL) TAKE 1 TABLET BY MOUTH TWICE DAILY 8 Active Ventolin HFA 90 mcg/actuation inhaler INHALE 2 PUFFS INTO THE LUNGS EVERY 4 HOURS NEEDED FOR COUGH OR WHEEZING 18 g 3 5 026 Active Ventolin HFA 90 mcg/actuation inhaler INHALE 2 PUFFS INTO THE LUNGS EVERY 4 HOURS NEEDED FOR COUGH OR WHEEZING 18 g 3 4 025 Discontinued Active Problems Problem Noted Date Diagnosed Date High cholesterol 12/31/2017 Chronic back pain 12/09/2017 Obstructive sleep apnea 06/16/2017 Anxiety 03/16/2017 Spinal stenosis of lumbar region 12/15/2016 Hyperlipidemia 03/19/2014 Pre-diabetes 03/19/2014 Tobacco use disorder 03/08/2014 COPD (chronic obstructive pu lmonary disease) ([facility] V24, [facility] V28) 03/09/2013 Depression 03/09/2013 GERD (gastroesophageal reflux disease) 4 HTN (hypertension) 03/09/2013 Insomnia 03/09/2013 Encounters Date Type Department Care Team Description 04/13/2024 Telephone Pulmonolgy - [address] [phone] Dayna Bustillo MD from Last [...] DX:Anxiety COPD (chronic obstructive pu lmonary disease) ([facility] V24, [facility] V28) 03/09/2013 DX:COPD (chronic o bstructive pulmonary disease) ([facility]) Depression 03/09/2013 DX:Depression GERD (gastroesophageal reflux disease) [...] 03/13/2024 11:25 AM EST Plan of Treatment Health Maintenance Due Date Last Done Comments [...] 2023 12/01/2022, 01/14/2022, 07/09/2021, Additional history exists Cholesterol Screening (Lipid Panel) 08/02/2024 08/03/2019 Influenza Vaccine (Season Ended) 2024 12/01/2022, 01/14/2022, 12/17/2020, Additional history exists DTaP,Tdap,and Td Vaccines (4 - Td or [...] age to complete this topic Meningococcal B Vaccine Aged Out No l onger eligible based on patient's age to complete [...] Results * Annual BMP Blood Test (08/03/2019) Annual BMP Blood Test abstracted Historical Provider HEALTH MAINTENANCE Final Result * Lipid panel (08/03/2019) LDL/HDL Ratio 4 0 - 4 Triglycerides 124 0 - 150 mg/dL Cholesterol 145 0 - 200 mg/dL HDL 40 >=40 mg/dL LDL Cholesterol 81 0 - 100 mg/dL Blood Venous blood specimen / Unknown Historical Provider LAB BLOOD ORDERABLES Marita l Result from Last 3 Months or Most Recently Relevant to Health Maintenance Insurance MEDICARE MEDICAID - [place] Care Teams Antique Collector Relationship Specialty Start Date End Date Evelyn Ibrahim MD [address] [place] [phone] PCP - General Internal Medicine 04/11/21
== END 2024-06-13 12:00 | disposition home or self-care (01) ==
LOC: HO.HMGCLDS 11:59
DX: E87.6 Hypokalemia (principal)
CPT/HCPCS: 36415; 84132

== ENCOUNTER 2024-06-14 13:47 | Outpatient (AMB) | payer MEDICARE, MEDICAID, SELFPAY ==
--- NOTE | 2024-06-14 13:51 | HO.NEPHOV_ITS ---
Vital Signs 06/14/24 13:53 Height 6 ft Weight 156 lb 6 oz BMI 21.2 BP 94/52 L Blood Pressure Location Lt brachial Position Sitting Pulse 93 Pulse Source Pulse Oximeter Intake Visit Reasons: INP: Hypokalemia-Conf Backrest Assembler Required: No Accompanied by: Self / Same As Patient Allergies morphine Allergy (Severe, Verified 06/14/24 13:53) Anaphylaxis acetaminophen [From Tylenol] Allergy (Intermediate, Verified 06/14/24 13:53) Gastrointestinal Upset HPI Comments Details: I had the privilege of seeing Nikko in consultation for hypokalemia. He is 54-year-old male with past medical history of atrial flutter, alcohol and polysubstance abuse who is continuing to have have excess alcohol intake with alcohol use disorder. He was investigated to have watchman device and was found to have low K. It led to potassium replacement and his watchman insertion has been put on hold.He has history of myocardial infarction three years ago with ongoing weakness since then; exercise intolerance noted. Continues to smoke but has reduced usage; acknowledges impact on respiratory status. He has no H/O hypokalemia as a child. He is not very hypertensive and he does not know what his magnesium levels are. He has not had any chemotherapy medications. He has a follow up with his pet sitting. [facility]LY [facility] Medical History Substance abuse in family Back pain Constipation Bipolar 1 disorder SOB (shortness of breath) Afib Myocardial infarction Tubular adenoma Tariq's esophagus determined by biopsy GERD (gastroesophageal reflux disease) Chronic idiopathic constipation Hx of opioid abuse Obesity Hyperlipidemia Asthma Peripheral neuropathy Lower back pain Surgical History S/P cardiac cath Hx of colonoscopy History of esophagogastroduodenoscopy (EGD) History of back surgery Family History Father No problems noted. Mother Chronic a-fib Sister Chronic a-fib Breast cancer Ovarian cancer Social History Household Members: Friend(s) Housing: House Are you a primary grounds caretaker to a significant other at home: No Do you presently have visiting nurse or other home services: No Alcohol intake: current Alcohol intake frequency: a few times a week Alcohol type: beer and hard liquor Patient Tobacco Use Status: Current everyday Tobacco user Tobacco use type: Cigarette Cigarette Packs Per Day: 0.5 Cigarettes Per Day: 10.0 e-Cigarette/Vaping Use: Never Used Second Hand Smoke Exposure: Yes Advance Directives Date on File: 07/28/22 service: No Current occupational status: disabled Cognitive needs: No Hearing needs: No Vision needs: Yes Review of Systems Const All systems reviewed & are unremarkable except as noted in HPI and below Physical Exam Vital Signs: Last Vital Signs Pulse 93 06/14/24 13:53 BP 94/52 L 06/14/24 13:53 BMI result Body Mass Index 21.2 Const General: comfortable and no acute distress Orientation/consciousness: patient oriented x3 HEENT Head: Yes normocephalic Mouth: Normal oral and palatal mucosa present Eyes EOM: EOMs intact bilaterally Neck Neck: Yes supple Resp Auscultation: clear to auscultation bilaterally Cardio Jugular venous distension: no JVD Rate: regular rate GI Palpation (GI): Soft to palpation Auscultation: normal bowel sounds General: Yes no CVA tenderness Back/Spine/Pelvis Back: no CVA tenderness Skin General skin exam: no rashes or lesions noted Neuro General: patient oriented x3 and moves all extremities Extrem General: Yes no pedal edema Results Reviewed Nephrology Results: Hgb 11.7 g/dl (14.0-18.0) L 05/22/24 WBC 6.0 X10*3/uL (4.8-10.8) 05/22/24 Plt Count 186 X10*3/uL (160-400) 05/22/24 Sodium 135 mmol/L (135-145) 05/22/24 Potassium 4.4 mmol/L (3.3-5.1) 06/13/24 Chloride 87 mmol/L (96-108) L 05/22/24 Carbon Dioxide 39 mmol/L (22-29) H 05/22/24 BUN 9 mg/dL (9-16) 05/22/24 Creatinine 0.71 mg/dL (0.5-1.4) 05/22/24 Calcium 7.7 mg/dL (8.4-10.2) L 05/22/24 Assessment & Plan Assessment & Plan (1) Hypokalemia: Code(s): E87.6 - Hypokalemia Category: Medical Plan Nikko has 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 He is currently on potassium replacement. He should cut back and abstain from drinking. I ordered magnesium, aldosterone along with other blood work. He can continue his current dose of K replacement for now. I plan to add Spironolactone and optimize his other medications when he has gotten his watchman device. Follow up is pending evolving data. Answered all questions. Orders: Orders Electrolytes 3 Months E87.6 - Hypokalemia Blood Urea Nitrogen 3 Months E87.6 - Hypokalemia Creatinine 3 Months E87.6 - Hypokalemia Magnesium 3 Months E87.6 - Hypokalemia Calcium 3 Months E87.6 - Hypokalemia Parathyroid Hormone Intact 3 Months E87.6 - Hypokalemia Renin 3 Months E87.6 - Hypokalemia Aldosterone 3 Months E87.6 - Hypokalemia Coding Level of Care Code New Pt Level 4 (58300) Diagnoses Hypokalemia E87.6
[2024-06-14 13:53] VITALS: BP 94/52; PULSE 93; BMI 21.2
--- OUTSIDE RECORDS SUMMARY | 2024-06-14 16:28 | XMS_ITS | Clinical Summary ---
Author Organization 175 [facility] Address [address] [place] [address] Phone Care Team Providers Care Agricultural Extension Agent Name Role Phone Evelyn Ibrahim MD Primary Care Provider [phone] Allergies Active Allergy Reactions Criticality Noted Date [...] FOR COUGH OR WHEEZING 18 g 3 05/15/2024 05/16/19 26 Active Active Problems Problem Noted Date Diagnosed Date High cholesterol 12/31/2017 Chronic back pain 12/09/2017 Obstructive sleep apnea 06/16/2017 Anxiety 03/16/2017 Spinal stenosis of lumbar region 12/15/2016 Hyperlipidemia 03/19/2014 Pre-diabetes 03/19/2014 Tobacco use disorder 03/08/2014 COPD (chronic obstructive pu lmonary disease) ([facility] V24, [facility] V28) 03/09/2013 Depression 03/09/2013 GERD (gastroesophageal reflux disease) 4 HTN (hypertension) 03/09/2013 Insomnia 03/09/2013 Encounters Date Type Department Care Team Description 04/13/2024 Telephone Pulmonolgy - [address] [phone] Dayna Bustillo MD from Last [...] DX:Anxiety COPD (chronic obstructive pu lmonary disease) ([facility] V24, [facility] V28) 03/09/2013 DX:COPD (chronic o bstructive pulmonary disease) ([facility]) Depression 03/09/2013 DX:Depression GERD (gastroesophageal reflux disease) [...] Insurance MEDICARE [place]ICAID - [place] Care Teams Agricultural Extension Agent Relationship Specialty Start Date End Date Evelyn Ibrahim MD [address] [facility] [address] [place] [address] PCP - General Internal Medicine 04/11/21
== END 2024-06-14 14:20 | disposition home or self-care (01) ==
LOC: HO.HKA 13:47
PROVIDERS: Visit Provider Internal Medicine Nephrology
DX: E87.6 Hypokalemia (principal)
CPT/HCPCS: 99204

== ENCOUNTER → 2024-06-14 13:47 | Outpatient (BNVA) | payer MEDICARE, MEDICAID, SELFPAY | PROVIDERS: Visit Provider Internal Medicine Nephrology | DX: E87.6 Hypokalemia (principal) | CPT/HCPCS: 99202 ==

== ENCOUNTER 2024-07-07 11:05 | Outpatient (AMB) | payer MEDICARE, MEDICAID, SELFPAY ==
[2024-07-07 11:08] VITALS: BP 108/62; PULSE 73; O2SAT 94; BMI 21.3
--- NOTE | 2024-07-07 11:08 | MHC.PC.OV ---
Vital Signs 07/07/24 11:08 Height 6 ft Weight 157 lb BMI 21.3 BP 108/62 Blood Pressure Location Lt brachial Position Sitting Pulse 73 Pulse Source Pulse Oximeter Pulse Oximetry (%) 94 Oxygen Delivery Method Nasal Cannula Intake Visit Reasons: f/u COPD Allergies morphine Allergy (Severe, Verified 07/07/24 11:08) Anaphylaxis acetaminophen [From Tylenol] Allergy (Intermediate, Verified 07/07/24 11:08) Gastrointestinal Upset Tobacco use date assessed: 05/02/24 Dental Screening Dental Screen Date: 05/02/24 HPI f/u COPD HPI Details PAtient states due to low platelet was advised to stop the anticoagulation eliquis as per cardiology . 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 Mother Chronic a-fib Sister Chronic a-fib Breast cancer Ovarian cancer Social History Household Members: Friend(s) Housing: House Are you a primary lead care manager to a significant other at home: No Do you presently have visiting nurse or other home services: No Alcohol intake: current Alcohol intake frequency: a few times a week Alcohol type: beer and hard liquor Patient Tobacco Use Status: Current everyday Tobacco user Tobacco use type: Cigarette Cigarette Packs Per Day: 0.5 Cigarettes Per Day: 10.0 e-Cigarette/Vaping Use: Never Used Second Hand Smoke Exposure: Yes Advance Directives Date on File: 07/28/22 service: No Current occupational status: disabled Cognitive needs: No Hearing needs: No Vision needs: Yes Questionnaire Thrive Questionnaire Date Thrive assessed: 04/04/24 AGUSTÍN-7 AMB Questionnaire AGUSTÍN-7 Date AGUSTÍN - 7 assessed: 04/04/24 Source: Developed by Drs. Uzair Napoles, Coretta Bernal, Saul Resendiz and colleagues, with an educational mabel from [employer]. Physical exam (Primary Care) Vital Signs: Last Vital Signs Pulse 73 07/07/24 11:08 BP 108/62 07/07/24 11:08 Pulse Ox 94 07/07/24 11:08 Oxygen Delivery Method Nasal Cannula 07/07/24 11:08 BMI result Body Mass Index 21.3 Tobacco/Smoking Status: Tobacco use Status Tobacco use date assessed 05/02/24 07/07/24 11:15 Patient Tobacco Use Status Current everyday Tobacco 07/07/24 11:15 Tobacco use type Cigarette 07/07/24 11:15 e-Cigarette/Vaping Use Never Used 07/07/24 11:15 Thrive Assessment: Date of Thrive Assessment Date Thrive assessed 04/04/24 07/07/24 11:15 Const General: alert; No acute distress Eyes Conjunctivae: conjunctivae normal Resp Auscultation: clear to auscultation bilaterally Cardio Rate: regular rate Rhythm: regular rhythm GI Inspection: Yes normal to inspection Extrem General: Yes normal to inspection and No edema Coding Level of Care Code Est Pt Level 4 (40801) Complex EM visit Add On G2211 Diagnoses Hypokalemia E87.6 COPD (chronic obstructive pulmonary disease) J44.9 Umbilical hernia K42.9 Substance abuse F19.10 Tobacco abuse Z72.0 Alcohol abuse F10.10 Tariq's esophagus determined by biopsy K22.70 Hyperlipidemia E78.5 Afib I48.91 Generalized anxiety disorder F41.1 Assessment & Plan Assessment & Plan (1) Hypokalemia: Code(s): E87.6 - Hypokalemia Category: Medical (2) COPD (chronic obstructive pulmonary disease): Code(s): J44.9 - Chronic obstructive pulmonary disease, unspecified Category: Medical Plan: Patient is advised to stop smoking! (3) Umbilical hernia: Code(s): K42.9 - Umbilical hernia without obstruction or gangrene Category: Surgical Plan: Patient has been having plans for umbilical hernia surgery (4) Substance abuse: Code(s): F19.10 - Other psychoactive substance abuse, uncomplicated Category: Medical Plan: Presently on Suboxone (5) Tobacco abuse: Code(s): Z72.0 - Tobacco use Category: Medical Plan: Patient is advised to stop smoking! Patient on oxygen already for COPD (6) Alcohol abuse: Code(s): F10.10 - Alcohol abuse, uncomplicated Category: Social Hx Plan: Patient is strongly advised to abstain from alcohol (7) Tariq's esophagus determined by biopsy: Code(s): K22.70 - Tariq's esophagus without dysplasia Category: Medical Plan: Avoid the foods that causes that usually spicy foods, tomato products, juices, coffee, soda and foods that your sensitive to. After eating do not lie down, allow 3-4 hours before in lie down. And keep the head of bed above 30 degrees to avoid the acid from going up. On pantoprazole (8) Hyperlipidemia: Code(s): E78.5 - Hyperlipidemia, unspecified Category: Medical Plan: Avoid fried foods, chicken skin, eggs, butter margarine, pastries and meat. Be it pork or beef they have a lot of cholesterol supposed to be on atorvastatin 20 mg once a day (9) Afib: Code(s): I48.91 - Unspecified atrial fibrillation Category: Medical Plan: Patient is being evaluated for left atrial appendage closure. (10) Generalized anxiety disorder: Code(s): F41.1 - Generalized anxiety disorder Category: Medical Plan History of Present Illness The patient is a 54-year-old male presenting for his follow-up appointment regarding management and prospective surgical intervention for an umbilical hernia. The patient's medical history is extensive and includes elevated cholesterol, Tariq?s esophagus, chronic constipation, and hypertension, alongside complicating factors such as hypogonadism, chronic alcohol use, and polysubstance abuse, which have previously led to hypokalemia. Evaluations from nephrology addressed hypokalemia due to alcoholism, and prescribed treatments include potassium supplements and spironolactone. A COPD diagnosis has progressed to stage 4, with monitoring following detection of lung base nodules identified on a CT scan in October 2023. Cardiological assessments have revealed atrial fibrillation and prompted discussions surrounding potential surgical interventions, such as left atrial appendage closure. This patient displays a dilated right ventricle and has been managed with diuretics due to associated leg swelling. A history of anemia further complicates the patient?s presentation, as indicated by recent lab results, showing low hemoglobin and hematocrit levels, alongside macrocytosis, elevated liver enzymes attributable to alcohol consumption, and maintained cholesterol within normal limits. The patient also mentions recent episodes of reversible bilateral hearing loss necessitating interventions for ear wax removal, continuing management strategies for residual impacts being considered. Health Maintenance - Counseling on the importance of smoking cessation, with emphasis on minimizing pneumonia and surgical risk. - Discussion on alcohol cessation to alleviate hepatic strain and macrocytic anemia. - Monitoring and maintaining a normal range potassium level through supplementation. - Continued evaluation and monitoring of nodules via CT scans for COPD management. - Routine follow-ups with cardiology regarding atrial fibrillation and potential procedures. - Recommendations for a well-balanced diet to improve anemia-related symptoms and protein deficiencies. Social History - History of chronic alcohol use, consuming approximately six packs of beer and nips daily, with past attempts at reduction. - Long-term tobacco use with a need for cessation efforts reiterated. - Chronic polysubstance abuse with current use of Suboxone for management and treatment. - Functional limitations expressed, including reduced appetite and significant weight loss of approximately 60 pounds over time. - Reported dietary intake issues due to lack of appetite, leading to decreased protein levels and generalized swelling. Review of Systems - Cardiovascular: Reports leg swelling, occasional elevated heart rate (around 130 bpm). - Respiratory: Reports use of supplemental oxygen for COPD. - Gastrointestinal: Reports anemia-related symptoms, including macrocytosis. - Ear/Nose/Throat: Reports resolved hearing loss after ear wax removal. - Musculoskeletal: Reports weight loss and associated functional limitations. - Hematologic: Reports history of anemia. - Psychiatric: Reports anxiety tendencies, non-specific in nature. - General: Reports chronic fatigue, lack of appetite, and significant weight loss. Physical Exam - Cardiovascular- Regular heart rhythm but noted to be tachycardic. - Abdomen- Palpation discomfort noted, umbilical hernia present. - Respiratory- Oxygen use evident as part of COPD management. Results - Labs: Anemia with a hemoglobin of 11.7 g/dL, hematocrit of 32.9%, macrocytic anemia with MCV 105 fL, potassium levels improved to 4.4 mmol/L. - Liver Function Tests: Elevated AST at 56 U/L. - Imaging: CT scan from October 2023 displaying nodules at right lung base; yearly monitoring advised due to stage 4 COPD. Plan The patient will proceed with umbilical hernia repair, contingent on recent blood work deemed stable for surgery. Regular follow-ups with nephrology manage potassium levels effectively to mitigate hypokalemia risks. Ongoing cardiological evaluations are necessary to consider left atrial appendage closure candidacy due to elevated bleeding risk. Lifestyle modifications, notably cessation of smoking and alcohol, are critical to preventing further deterioration and optimizing overall health outcomes. Nutritional interventions are advised to address macrocytic anemia and low protein levels, supporting recovery from hypoalbuminemia and reducing ascitic symptoms. Patient was informed and verbally consented to the use of an ambient scribe for clinic note documentation during this visit. Discussion Notes I discussed the patient's condition comprehensively, focusing on the need for surgical intervention in their umbilical hernia with the recent improvement in platelet counts allowing candidacy for surgery. We reviewed potential cardiac interventions for atrial fibrillation, including left atrial appendage closure, emphasizing the importance of managing atrial fibrillation in context with bleeding risks. We discussed the necessity of lifestyle changes incorporating cessation of smoking and alcohol consumption to improve overall health, specifically focusing on the hepatic and pulmonary implications of continued use. We reviewed the possible risks of nutritional deficiencies leading to anemia and protein deficit, recommending dietary adjustments for improvement. The patient consented to proceed with the outlined management strategy, understanding the risks, benefits, and follow-up requirements. Patient Instructions - Quit smoking to lower risk for pneumonia and improve surgical outcomes. - Stop drinking alcohol gradually to avoid withdrawal and improve liver health. - Follow a balanced diet with higher protein to help with swelling and energy levels. - Use supplemental oxygen for breathing as needed for COPD. - Monitor and report any significant changes in health, especially increased swelling or difficulty breathing. - Plan to have blood work done as scheduled; they will call for the ultrasound. - Contact education rep to discuss atrial fibrillation management as advised. - Make sure your phone number is current to receive follow-up calls. Orders: Orders Complete Blood Count Auto Diff Today I48.3 - Typical atrial flutter Thyroid Stimulating Hormone Today I48.3 - Typical atrial flutter Ferritin Today I48.3 - Typical atrial flutter Reticulocyte Count Today I48.3 - Typical atrial flutter UA CC w/rflx Micro + Cult Today I48.3 - Typical atrial flutter, R30.0 - Dysuria Prothrombin Time INR Today I48.3 - Typical atrial flutter US abdomen complete Today F10.10 - Alcohol abuse, uncomplicated, R79.89 - Other specified abnormal findings of blood chemistry Comprehensive Met. Panel Today I48.3 - Typical atrial flutter Free T4 (Free Thyroxine) Today I48.3 - Typical atrial flutter Vitamin B12 and Folate Today I48.3 - Typical atrial flutter IRON PROFILE Today I48.3 - Typical atrial flutter B Type Natriuretic Peptide Today I48.3 - Typical atrial flutter
--- OUTSIDE RECORDS SUMMARY | 2024-07-07 11:36 | XMS_ITS | Clinical Summary ---
Author Organization [address] [facility] Address [address] [place] [address] Phone Care Team Providers Care Research Associate Name Role Phone Evelyn Ibrahim MD Primary Care Provider [phone] Allergies Active Allergy Reactions Criticality Noted Date [...] mg magnesium tablet Take by mouth. Active ibuprofen (ADVIL,MOTRIN) 600 mg tablet Take [...] WHEEZING 18 g 3 5 026 Active fluticasone-um eclidinium-jero anterol (Trelegy Ellipta) 200-62.5-25 mcg inhaler INHALE 1 PUFF INTO THE LUNGS DAILY 1 each 5 5 025 Active fluticasone-um eclidinium-jero anterol (Trelegy Ellipta) 200-62.5-25 mcg inhaler Inhale into the lungs. 025 Discontinued Active Problems Problem Noted Date Diagnosed Date High cholesterol 12/31/2017 Chronic back pain 12/09/2017 Obstructive sleep apnea 06/16/2017 Anxiety 03/16/2017 Spinal stenosis of lumbar region 12/15/2016 Hyperlipidemia 03/19/2014 Pre-diabetes 03/19/2014 Tobacco use disorder 03/08/2014 COPD (chronic obstructive pu lmonary disease) ([facility] V24, [facility] V28) 03/09/2013 Depression 03/09/2013 GERD (gastroesophageal reflux disease) 4 HTN (hypertension) 03/09/2013 Insomnia 03/09/2013 Encounters Date Type Department Care Team Description 04/13/2024 Telephone Pulmonolgy - [address] [address] Dayna Bustillo MD from Last [...] DX:Anxiety COPD (chronic obstructive pu lmonary disease) ([facility] V24, [facility] V28) 03/09/2013 DX:COPD (chronic o bstructive pulmonary disease) ([facility]) Depression 03/09/2013 DX:Depression GERD (gastroesophageal reflux disease) [...] Insurance MEDICARE MEDICAID - [place] Care Teams Research Associate Relationship Specialty Start Date End Date Evelyn Ibrahim MD [address] [place] [phone] PCP - General Internal Medicine 04/11/21
== END 2024-07-07 11:57 | disposition home or self-care (01) ==
LOC: HO.HMCH 11:06
PROVIDERS: PCP Internal Medicine; Visit Provider Internal Medicine
DX: E87.6 Hypokalemia (principal); J44.9 Chronic obstructive pulmonary disease, unspecified; F19.10 Other psychoactive substance abuse, uncomplicated; I48.91 Unspecified atrial fibrillation; K42.9 Umbilical hernia without obstruction or gangrene; Z72.0 Tobacco use; F10.10 Alcohol abuse, uncomplicated; K22.70 Barrett's esophagus without dysplasia; E78.5 Hyperlipidemia, unspecified; F41.1 Generalized anxiety disorder

== ENCOUNTER → 2024-07-07 11:05 | Outpatient (BNVA) | payer MEDICARE, MEDICAID, SELFPAY | PROVIDERS: PCP Internal Medicine; Visit Provider Internal Medicine | DX: E87.6 Hypokalemia (principal); J44.9 Chronic obstructive pulmonary disease, unspecified; K42.9 Umbilical hernia without obstruction or gangrene; F19.10 Other psychoactive substance abuse, uncomplicated; F10.10 Alcohol abuse, uncomplicated; K22.70 Barrett's esophagus without dysplasia; E78.5 Hyperlipidemia, unspecified; I48.91 Unspecified atrial fibrillation; F41.1 Generalized anxiety disorder; Z72.0 Tobacco use | CPT/HCPCS: 99212 ==

== ENCOUNTER 2024-07-25 12:05 | Inpatient (IN) | payer MEDICARE, MEDICAID, SELFPAY ==
[2024-07-25] VITALS (9 sets, daily range): BP systolic 92–112; BP diastolic 50–68; PULSE 59–90; RESP 13–25; TEMP 36.4–36.8; O2SAT 89–98; BMI 21.3
--- NOTE | ~2024-07-25 | XR_ITS ---
EXAMINATION: XR CHEST CLINICAL INFORMATION: cough COMPARISON: 04/07/2024, 02/15/2024. TECHNIQUE: Frontal view of the chest was obtained. FINDINGS: The cardiac, hilar, and mediastinal contours are normal. The lungs are somewhat hyperaerated bilaterally, however clear. No pneumothorax or effusion. No focal osseous or soft tissue abnormality. XR/XR chest 1V IMPRESSION: No active pulmonary disease. Electronically signed by: Dario Childress MD 07/26/2024 08:51 AM EDT
--- NOTE | ~2024-07-25 | NM_ITS ---
EXAMINATION: NM HEPATOBILIARY WITHOUT PHARM HISTORY: cholecystitis. TECHNIQUE: An hepatobiliary scan was performed following the intravenous administration of 5 mCi technetium 99m-mebrofenin. Sequential images were obtained over 105 minutes. COMPARISON: Correlation is made with abdominal CT and ultrasound examinations dated 07/25/2024. FINDINGS: There is normal uptake and excretion of the radiopharmaceutical by the liver. Common bile duct activity is noted at 16 minutes. Small bowel activity is seen at 22 minutes. No gallbladder activity is identified. Findings are consistent with cystic duct obstruction acute cholecystitis. NM/NM hepatobiliary wo pharm IMPRESSION: Findings consistent with cystic duct obstruction and acute cholecystitis. Electronically signed by: Uzair Butler MD 07/27/2024 12:58 PM EDT
--- NOTE | ~2024-07-25 | US_ITS ---
EXAMINATION: US ABDOMEN LIMITED CLINICAL INFORMATION: Right upper quadrant tenderness.. COMPARISON: CT abdomen and pelvis earlier same day. Abdomen ultrasound 06/03/2023. TECHNIQUE: Real-time imaging of the gallbladder and bile ducts. FINDINGS: GALLBLADDER: There is extensive layering sludge within the gallbladder. The wall thickness is 3 mm, borderline. No pericholecystic fluid collection. No calculi seen. There was a positive sonographic Haq's sign. COMMON BILE DUCT: Normal in caliber measuring 0.5 cm in diameter. FREE FLUID: None. Echogenic liver consistent with fatty infiltration. US/US abdomen limited IMPRESSION: 1. Gallbladder demonstrating echogenic layering sludge with a positive sonographic Haq's sign. No significant wall thickening (borderline at 3 mm) and no definite pericholecystic fluid collection. Cannot exclude acute cholecystitis. 2. No biliary dilatation. Electronically signed by: Dario Childress MD 07/25/2024 04:15 PM EDT
--- NOTE | ~2024-07-25 | CT_ITS ---
EXAMINATION: CT ABDOMEN PELVIS WITH IV CONTRAST HISTORY: diffusely tender COMPARISON: Comparison is made with the prior examination dated 07/24/2022. TECHNIQUE: CT scan of the abdomen and pelvis was performed following administration of 85 mL Omnipaque 350 using standard departmental protocol. Coronal and sagittal reformatted images were generated and reviewed. Oral contrast material was not administered at the request of the referring physician. This CT exam was performed with one or more of the following dose reduction techniques: automated exposure control, adjustment of the mA and/or kV according to patient size, use of iterative reconstruction technique. DLP: 942 mGy-cm FINDINGS: LOWER CHEST: There is patchy airspace opacity at the left lung base compatible with pneumonia. There are scattered small opacities at the right lung base which may represent pneumonia. There is no pleural effusion. CARDIOVASCULATURE: The heart is normal in size. There is no pericardial effusion. LIVER: The liver is normal in size and contour, but demonstrates markedly decreased attenuation, consistent with steatosis. No liver mass is identified. The hepatic and portal veins are patent. GALLBLADDER / BILE DUCTS: The gallbladder is unremarkable. There is no intra or extrahepatic biliary ductal dilatation. SPLEEN: The spleen is normal in size. No focal splenic lesion is identified. PANCREAS: The pancreas is unremarkable in appearance. ADRENAL GLANDS: Within normal limits. KIDNEYS/RETROPERITONEUM: No renal calculi are identified. There is no hydronephrosis. There are subcentimeter hypodensities in both kidneys which likely represent cysts, but are too small to accurately characterize. LYMPH NODES: No abdominal or pelvic lymphadenopathy. VASCULATURE: The abdominal aorta demonstrates atherosclerotic calcification, but is normal in caliber. MESENTERY/PERITONEUM: No free fluid. No masses. There is no free intraperitoneal gas. STOMACH: The stomach is collapsed, limiting evaluation. SMALL BOWEL: The small bowel is normal in caliber. COLON: The colon is unremarkable. APPENDIX: The appendix is not seen, however no inflammatory changes are seen adjacent to the cecum. URINARY BLADDER/PELVIC ORGANS: The urinary bladder is unremarkable. The prostate is normal in size. BONES / SOFT TISSUES: The patient is status post posterior fusion of L4-S1 with pedicle screws and spinal stabilization rods. There is grade I spondylolisthesis of L3 on L4. CT/CT abdomen pelvis w IV con IMPRESSION: 1. No evidence of traumatic injury to the abdomen or pelvis. 2. Marked hepatic steatosis. Electronically signed by: Uzair Butler MD 07/25/2024 02:50 PM EDT
--- NOTE | ~2024-07-25 | CT_ITS ---
EXAMINATION: CT HEAD WITHOUT CONTRAST CLINICAL INFORMATION: EtOH, fall with head strike. COMPARISON: 08/22/2023, 08/11/2022. TECHNIQUE: Contiguous axial imaging was performed from the skull base to vertex without intravenous administration of contrast. This CT examination was performed using dose optimization techniques as appropriate, variously including the following: *Automated exposure control *Adjustment of mA and/or kV according to patient size (this includes techniques or standardized protocols for targeted exams where dose is matched to indication/reason for exam; i.e. extremities or head) *Use of iterative reconstruction technique FINDINGS: There is no evidence of intracranial hemorrhage or extra-axial fluid collection. There is no mass effect, or edema. No CT evidence of acute territorial infarct. Ventricles, sulci, and cisterns are normal in size and configuration for patient age. No hydrocephalus. No midline shift. Negative hyperdense MCA sign. Negative insular ribbon sign. Patchy periventricular and deep white matter hypoattenuation is consistent with mild small vessel ischemic changes. Normal pituitary. Globes and orbital contents image normally. No extracranial soft tissue abnormalities. The paranasal sinuses, mastoid air cells, and tympanic cavities are normally aerated. No suspicious bony abnormalities. There are no acute fractures evident. CT/CT head/brain wo IV con IMPRESSION: No acute intracranial abnormality. No fracture evident. Electronically signed by: Dario Childress MD 07/25/2024 02:50 PM EDT
--- NOTE | ~2024-07-25 | CT_ITS ---
EXAMINATION: CT CERVICAL SPINE WITHOUT CONTRAST CLINICAL INFORMATION: EtOH, fall, head strike COMPARISON: 08/22/2023, 03/13/2022. TECHNIQUE: Spiral CT imaging of the cervical spine performed in axial plane without contrast. Multiplanar reformatted images were constructed from the axial data set. This CT examination was performed using dose optimization techniques as appropriate, variously including the following: *Automated exposure control *Adjustment of mA and/or kV according to patient size (this includes techniques or standardized protocols for targeted exams where dose is matched to indication/reason for exam; i.e. extremities or head) *Use of iterative reconstruction technique FINDINGS: CORONAL ALIGNMENT: -There is a mild right convex scoliosis, apex at C5. SAGITTAL ALIGNMENT: -Mild reversal of the normal lordosis, centered at C5. -There is no subluxation. C1-C2 AND CRANIOCERVICAL JUNCTION: -Intact and normally aligned. There are moderate degenerative changes of the anterior atlantoaxial joint. VERTEBRAL BODIES AND FACETS: -There is no fracture, traumatic subluxation, compression deformity, or suspicious bone lesion. -The facets are normally aligned bilaterally. There are mild bilateral multilevel degenerative facet changes left greater than right. DISCS: -There is mild to moderate disc degeneration most notable C5-6, C6-7, and C7-T1. CENTRAL CANAL: -No evidence of high-grade central canal narrowing or large disc herniation allowing for modality limitations. PREVERTEBRAL AND PARAVERTEBRAL SOFT TISSUES: -No prevertebral or paravertebral soft tissue edema or swelling. -Moderate right greater than left carotid bulb calcifications. -Normal thyroid. LUNG APICES: -Centrilobular and paraseptal emphysema. Lung apices are otherwise clear. CT/CT cervical spine wo IV con IMPRESSION: 1. No CT evidence of acute cervical spine fracture or injury. 2. Degenerative spondylosis and mild right convex scoliosis. 3. Paraseptal emphysematous change in the lung apices. Electronically signed by: Dario Childress MD 07/25/2024 02:57 PM EDT
--- NOTE | 2024-07-25 12:19 | ED.GENADULT ---
HPI - General Adult General Chief complaint: Fall Stated complaint: FALL/ON FLOOR ALL NIGHT PER EMS Time Seen by Provider: 07/25/24 12:19 Source: patient, EMS, RN notes reviewed and old records reviewed Mode of arrival: EMS Limitations: no limitations History of Present Illness ED Provider: Olga HPI narrative: Patient is a 54-year-old male with history of VA, COPD, afib/flutter on metoprolol, smoking, umbilical hernia, alcohol use disorder, substance use disorder, history of frequent falls presenting to the ED via EMS stating that he wanted to be evaluated after hitting his head due to fall. Reports daily alcohol use, around 1.5 pints of vodka daily, last drank around 9am today. States he was on the toilet last night and when he got up he lost his balance and fell forward onto the floor. was home but he was unable to get up off the floor as she was unable to lift him. He denies loss of consciousness. States he is not currently anticoagulated, was advised to discontinue Eliquis due to thrombocytopenia. She did bring him a pillow to lay on. This morning his cousin who is an EMT came over and assisted him into a recliner, then he called for an ambulance. Reports known umbilical hernia which he has seen general surgery for to discuss repair. Denies headache, vision changes, chest pain. Reports chronic dyspnea. Complains of palpitations. States he is interested in alcohol detox. MD complaint: head injury Onset (ago): hour(s) Related Data Home Medications ?Medication ?Instructions ?Recorded ?Confirmed buprenorphine 8 mg-naloxone 2 mg 1 tab sublingual TID 08/15/20 07/26/24 sublingual tablet fluticasone fur. 200 mcg-umeclid 1 ea inhalation DAILY 07/24/22 07/26/24 62.5 mcg-vilant 25 mcg inhalat.powder (Trelegy Ellipta) digoxin 125 mcg (0.125 mg) tablet 125 mcg PO DAILY 07/26/24 07/26/24 potassium chloride 20 mEq 20 meq PO DAILY 07/26/24 07/26/24 tablet,extended release Previous Rx's ?Medication ?Instructions ?Recorded bisacodyl 5 mg tablet,delayed 10 mg (2 x 5 mg) PO BEDTIME #180 08/16/23 release (Dulcolax (bisacodyl)) tabs diltiazem HCl 300 mg capsule,24 300 mg PO DAILY #90 caps 02/24/24 hr,extended release (Tiadylt ER) metoprolol tartrate 100 mg tablet 100 mg PO BID 90 days #180 tabs 03/09/24 atorvastatin 20 mg tablet 20 mg PO BEDTIME #90 tabs 03/20/24 oxygen via NC 2 l inhalation DAILY #1 units 04/04/24 prucalopride 2 mg tablet 2 mg PO DAILY #90 tabs 04/18/24 (Motegrity) magnesium oxide 500 mg capsule 500 mg PO DAILY #30 caps 05/18/24 pantoprazole 40 mg tablet,delayed 40 mg PO DAILY@0630 #30 tabs 06/28/24 release albuterol sulfate 90 mcg/actuation 90 mcg inhalation Q4-6H PRN 07/11/24 aerosol inhaler (Ventolin HFA) Shortness Of Breath Or Wheezing #8.5 grams clonazepam 1 mg tablet (Klonopin) 1 mg PO BID PRN Anxiety #60 tabs 07/11/24 Allergies Allergy/AdvReac Type Severity Reaction Status Date / Time morphine Allergy Severe Anaphylaxis Verified 07/25/24 12:21 acetaminophen [From Tylenol] Allergy Intermediate Gastrointestinal Verified 07/25/24 12:21 Upset Review of Systems Review of Systems: As per HPI Yes all other systems are reviewed and are negative Constitutional: Constitutional: Reports as per HPI [facility] Past Medical History Medical History (Updated 07/26/24 @ 11:39 by ASHIA Fleming) Substance abuse in family Back pain Constipation Bipolar 1 disorder SOB (shortness of breath) Afib Myocardial infarction Tubular adenoma 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 Mother Chronic a-fib Sister Chronic a-fib Breast cancer Ovarian cancer Social History Social History Household Members: Friend(s) Housing: House Are you a primary acute care physical therapist to a significant other at home: No Do you presently have visiting nurse or other home services: No Alcohol intake: current Alcohol intake frequency: 3 or more drinks per day Alcohol type: hard liquor Patient Tobacco Use Status: Current everyday Tobacco user Tobacco use type: Cigarette Cigarette Packs Per Day: 0.5 Cigarettes Per Day: 10.0 Smoked in Last 30 Days: Yes e-Cigarette/Vaping Use: Never Used Second Hand Smoke Exposure: Yes Use of substances other than those prescribed or required for medical reasons: No Advance Directives: Yes Advance Directives on File: Yes Advance Directives Date on File: 07/28/22 service: No Current occupational status: disabled Cognitive needs: No Hearing needs: No Vision needs: Yes Physical Exam ED Vital Signs: Vital Signs - 24 hr 07/25/24 12:12 07/25/24 12:26 07/25/24 12:34 Temperature 98 F Pulse Rate 79 80 Respiratory Rate 25 H 15 Blood Pressure 108/68 108/68 Pulse Oximetry 93 95 Oxygen Delivery Method Room Air Oxygen Flow Rate 07/25/24 14:37 07/25/24 16:08 07/25/24 17:38 Temperature 97.6 F 98.2 F Pulse Rate 74 59 63 Respiratory Rate 14 19 17 Blood Pressure 92/59 L 101/57 L 101/56 L Pulse Oximetry 93 94 Oxygen Delivery Method Room Air Room Air Oxygen Flow Rate 07/25/24 19:15 07/25/24 19:15 07/25/24 21:09 Temperature Pulse Rate 61 64 Respiratory Rate 15 Blood Pressure 92/55 L 95/62 Pulse Oximetry 89 L 98 Oxygen Delivery Method Room Air Nasal Cannula Oxygen Flow Rate 2 07/25/24 22:16 07/26/24 00:08 07/26/24 02:55 Temperature 97.9 F 97.7 F 98.1 F Pulse Rate 68 68 125 H Respiratory Rate 13 12 18 Blood Pressure 112/64 109/62 107/65 Pulse Oximetry 95 98 94 Oxygen Delivery Method Nasal Cannula Nasal Cannula Nasal Cannula Oxygen Flow Rate 2 2 2 07/26/24 06:47 07/26/24 08:42 07/26/24 08:42 Temperature 97.9 F Pulse Rate 99 128 H 128 H Respiratory Rate 20 Blood Pressure 121/75 118/79 118/79 Pulse Oximetry 99 Oxygen Delivery Method Nasal Cannula Oxygen Flow Rate 2 07/26/24 09:58 Temperature 98.2 F Pulse Rate 104 H Respiratory Rate 17 Blood Pressure 121/81 Pulse Oximetry 98 Oxygen Delivery Method Nasal Cannula Oxygen Flow Rate BMI result Body Mass Index 21.3 Vital signs have been reviewed and appear to be correct. Blood pressure normal. Heart rate normal. Respiratory rate normal. Temperature normal. Oxygen saturation normal. Const General: cooperative, no acute distress, alert, awake and ill appearing chronically Orientation/consciousness: oriented to person, oriented to place, oriented to time and patient oriented x3 Limitations: no limitations HENMT Head: Yes normocephalic and Yes atraumatic Ears: hearing grossly normal bilaterally, external ears normal and TM's normal bilaterally General nose exam: Normal external nose present Face and sinus: Yes face symmetric Mouth: oropharynx normal and moist mucous membranes Throat: Yes uvula midline Eyes Pupils: Equal, round and reactive pupils present Neck Neck: Yes normal visual inspection and Yes supple Chest Chest palpation & inspection: normal inspection of the chest and normal palpation of entire chest wall Resp Effort & Inspection: normal respiratory effort and able to speak in complete sentences Auscultation: clear to auscultation bilaterally Cardio Rate: regular rate Heart sounds: S1 normal heart sound present and S2 normal heart sound present Peripheral pulses: Peripheral pulses 2+ throughout GI Palpation (GI): Soft to palpation and Tenderness to palpation present (GI) in the LUQ, in the RUQ and Haq's sign positive Auscultation: normoactive bowel sounds General: Yes no CVA tenderness Back/Spine/Pelvis Back: no CVA tenderness Skin General skin exam: elasticity normal and turgor normal Neuro General: oriented to person, oriented to place, oriented to time, patient oriented x3, tone normal, moves all extremities, Normal light touch and pain sensation, no focal motor deficits, CN's II-XI intact bilaterally and deep tendon reflexes 2+ bilaterally Cranial nerves: Yes Equal, round and reactive pupils present Cognition (Neuro): normal cognition Motor exam (neuro): 5/5 motor strength present throughout, Normal motor muscle tone present throughout and Motor abnormalities not present Extrem General: Yes full ROM, Yes no calf tenderness and Yes edema (bilat 3+ pitting edema) Psych Mental Status: mental status grossly normal Affect: normal affect Thought process: Normal thought process present Course Reevaluation(s) Reevaluation #1: I Sahra Rossi PA-C have accepted care of the patient at signed out pending surgical consult and final disposition Ultrasound right upper quadrant: US/US abdomen limited IMPRESSION: 1. Gallbladder demonstrating echogenic layering sludge with a positive sonographic Haq's sign. No significant wall thickening (borderline at 3 mm) and no definite pericholecystic fluid collection. Cannot exclude acute cholecystitis. 2. No biliary dilatation. We will be paging Dr. Rios again she is already aware of the patient. Reevaluation #2: Give the patient albumin, it was low, in his pressures were soft, there was no compensatory tachycardia, he is afebrile, this is from his underlying liver dysfunction. I asked the patient if he was interested in detox he states that he is, we will also hold him for case management and PT secondary to his frequent falls and gait instability. Placing orders for his arbs and associated consults, we will give thiamine in place a CIWA scaleTime: 22:12 Date: 07/25/24 Provider: ASHIA Sheppard Patient in physician observation for case management needs. No acute events reported overnight.? No current issues or complaints. VS stable. Patient is pending placement at facility/pending PT/CM eval. Will continue to monitor. Time: 22:10 Reevaluation #3: Physician observation continued. Physical therapy came and assess patient, difficult to assess as patient became very tachycardic even upon standing. Recovery team also saw patient, they state that he has a lot of significant medical issues, and they are happy to follow patient for detox however other ailments may take precedence. Case management also concerned as a may not be able to find placement until he has a CIWA of 0 for 24 hours. He is currently at a 4. I discussed this case with my attending physician, Dr. Gaffney, given patient had a magnesium level of 1 yesterday and was given 1 time dose of magnesium 2 g, and the as well as elevated liver enzymes, and patient having generalized weakness, he should be admitted for further management of his complex medical issues. I ordered repeat labs, and 2nd dose of IV magnesium per Dr. Gaffney. I reached out to Dr. Rios who clarified stating that she does not believe that he has cholecystitis, if there is a concern, HIDA scan can be done. The alcohol use and LFTs are increasing due to that, and likely not from cholecystitis. I relayed this information to the medical service. He will be admitted to the medical service for further evaluation. Consultations Consultation #1: per Dr. Rios ... She states the ultrasound finding is nonspecific, she does not feel he has a surgical issue Time: 18:43 Medications Administered Generic Name Dose Route Start Last Admin Trade Name Freq PRN Reason Stop Dose Admin Buprenorphine/Naloxone 1 tab 07/26/24 09:00 07/26/24 08:40 Buprenorphine/Naloxone 8/2 Mg Tab.Subl SUBLINGUAL 1 tab TID LUCRECIA Administration Digoxin 0.125 mg 07/26/24 09:00 07/26/24 08:40 Digoxin 0.125 Mg Tablet PO 0.125 mg DAILY LUCRECIA Administration Protocol Diltiazem HCl 300 mg 07/26/24 09:00 07/26/24 08:42 Diltiazem Hcl Cd 300 Mg Cap.Er.24h PO 300 mg DAILY LUCRECIA Administration Protocol Fluticasone/Umeclidinium/Vilanterol 1 puff 07/26/24 09:00 07/26/24 08:42 Fluticasone/Umeclidinium/Vilanterol 200/62.5/25 Blst.W.Dev INHALE 1 puff DAILY LUCRECIA Administration Metoprolol Tartrate 100 mg 07/26/24 09:00 07/26/24 08:42 Metoprolol Tartrate 100 Mg Tablet PO 100 mg BID LUCRECIA Administration Protocol Omeprazole 20 mg 07/26/24 06:30 07/26/24 08:41 Omeprazole 20 Mg Capsule.Dr PO 20 mg DAILY@0630 LUCRECIA Administration Potassium Chloride 20 meq 07/26/24 09:00 07/26/24 08:41 Potassium Chloride Er 20 Meq Tab.Er.Prt PO 20 meq BID LUCRECIA Administration Discontinued Medications Generic Name Dose Route Start Last Admin Trade Name Freq PRN Reason Stop Dose Admin Magnesium Sulfate 2 gm in 50 mls @ 25 mls/hr 07/25/24 13:48 07/25/24 19:15 Magnesium Sulfate/H2o IV 07/25/24 15:47 Infused ONCE ONE Infusion Albumin Human 100 mls @ 100 mls/hr 07/25/24 19:45 07/25/24 20:50 Kedbumin 25 % IV 07/26/24 14:44 Infused Q6H LUCRECIA Infusion Albumin Human 100 mls @ 100 mls/hr 07/25/24 20:45 07/25/24 22:15 Kedbumin 25 % IV 07/25/24 23:44 Not Given Q1H LUCRECIA Thiamine HCl 100 mg/ Sodium 101 mls @ 202 mls/hr 07/25/24 22:11 07/25/24 23:21 Chloride IV 07/25/24 22:40 Infused ONCE ONE Infusion Iohexol 100 ml 07/25/24 14:38 07/25/24 14:38 Iohexol 350 Mg/Ml 100 Ml Infus..Btl IV 07/25/24 14:39 85 ml ONCE ONE Administration Lorazepam 2 mg 07/25/24 17:44 07/25/24 17:57 Lorazepam 1 Mg Tablet PO 07/25/24 17:45 2 mg ONCE ONE Administration Metoprolol Tartrate 5 mg 07/26/24 02:56 07/26/24 03:05 Metoprolol Tartrate 5 Mg/5 Ml Vial IVPUSH 07/26/24 02:57 Not Given ONCE ONE Protocol Phenobarbital Sodium 310 mg 07/26/24 10:30 07/26/24 10:35 Phenobarbital Sodium 130 Mg/Ml Im Once IM 07/26/24 10:31 310 mg ONCE ONE Administration Medical Decision Making Medical Decision Making MDM Narrative: Patient is a 54-year-old male with history of COPD, afib/flutter on metoprolol, smoking, umbilical hernia, alcohol use disorder, substance use disorder, history of frequent falls presenting to the ED via EMS stating that he wanted to be evaluated after hitting his head due to fall. On exam patient is awake, A+Ox3, VS WNL, afebrile, normal neurological exam without focal deficits, physical exam findings as above. Given reported symptoms and physical exam findings, initial differential includes but is not limited to ICH, skull or cervical vertebral fracture or subluxation, electrolyte abnormality, pancreatitis, cholecystitis, choledocholithiasis, pulmonary HTN, HF. Labs notable for anemia not at transfusion level, thrombocytopenia, hyponatremia, hypocalcemia, elevated T bili and transaminases, elevated alk-phos, mildly elevated CK, slightly elevated BNP, hypoalbuminemia. EKG shows atrial flutter, controlled rate, history of same. Patient medicated with IV magnesium. CT head and C-spine notable for no ICH, skull or cervical vertebral fracture or subluxation. CT abdomen pelvis notable for hepatic steatosis, no other acute abnormalities. Right upper quadrant ultrasound notable for echogenic layering sludge with positive sonographic Haq's sign. My interpretation is in agreement with the radiologist's interpretation. Case discussed with Dr. Rios. Patient signed out to ASHIA Crouch. Differential Diagnosis Differential Diagnoses: The differential diagnosis associated with the presentation includes As per [facility] Admission/Observation Consideration of admission/observation: Escalation of care including admission/observation considered Consult Healthcare Provider Management of the patient was discussed with: Blood Typer (Dr. Rios) Lab Data [facility] Lab Attestation statement: I reviewed the patient's lab results. As per [facility] 07/25/24 13:03 07/25/24 13:03 Labs: Lab Results 07/25/24 07/25/24 07/25/24 Range/Units 13:03 14:08 18:35 WBC 7.6 (4.8-10.8) X10*3/uL RBC 2.70 L (4.60-5.80) X10*6/uL Hgb 10.1 L (14.0-18.0) g/dl Hct 29.6 L (42.0-52.0) % MCV 109.6 H (80.0-98.0) fL MCH 37.4 H (27.0-33.0) pg MCHC 34.1 (31.0-36.0) g/dl RDW 14.5 (11.0-16.0) % Plt Count 66 L D (160-400) X10*3/uL MPV 11.9 (9.4-12.4) fL Immature Gran % (Auto) 0.5 H (0.0-0.4) % Neut % (Auto) 67.7 (45-73) % Lymph % (Auto) 17.4 L (20-40) % Hinds % (Auto) 13.2 H (2-11) % Eos % (Auto) 0.4 (0-4) % Baso % (Auto) 0.8 (0-2) % Lymph # (Auto) 1.3 (1.2-4.9) X10*3/uL Hinds # (Auto) 1.0 (0.1-1.2) X10*3/uL Eos # (Auto) 0.0 (0.0-0.4) X10*3/uL Baso # (Auto) 0.1 (0.0-0.2) X10*3/uL Abs Immat Gran (auto) 0.04 H (0.00-0.03) X10*3/uL Absolute Neuts (auto) 5.1 (2.0-8.3) x10*3/uL Absolute Nucleated RBC 0.000 (0.0-0.012) X10*3/uL Nucleated RBC % (auto) 0.0 (0.0-0.2) /100WBC PT 13.6 H (10.9-12.4) SEC INR 1.2 H (0.9-1.1) Sodium 135 (135-145) mmol/L Potassium 4.4 (3.3-5.1) mmol/L Chloride 100 (96-108) mmol/L Carbon Dioxide 29 (22-29) mmol/L Anion Gap 10 L (12-20) BUN 13 (9-16) mg/dL Creatinine 0.50 (0.5-1.4) mg/dL Estim Creat Clear Calc 168.3 Estimated GFR > 60 Random Glucose 92 (60-115) mg/dL Calcium 7.2 L D (8.4-10.2) mg/dL Magnesium 1.0 L* (1.6-2.6) mg/dL Total Bilirubin 2.8 H (0.0-1.0) mg/dL Direct Bilirubin 2.0 H (0.0-0.5) mg/dL AST 182 H (5-37) U/L ALT 41 H (0-40) U/L Alkaline Phosphatase 506 H (39-117) U/L Total Creatine Kinase 289 H (38-174) U/L Troponin I High Sens 10.2 D 9.4 (<3.5-35.0) ng/L B-Natriuretic Peptide 275 H (<100) pg/mL Total Protein 5.5 L (6.5-8.0) g/dL Albumin 2.1 L (3.5-5.0) g/dL Urine Color Dark Yellow Urine Appearance Clear Urine pH 7.0 (5.0-9.0) Ur Specific [place] 1.015 (1.005-1.025) Urine Protein Trace (Neg-Trace) mg/dL Urine Glucose (UA) Negative (Negative) mg/dL Urine Ketones Trace (Negative) mg/dL Urine Blood Negative (Negative) Urine Nitrite Negative (Negative) Ur Leukocyte Esterase Negative (Negative) Urine Opiates Screen Not Detected (Not Detect) Ur Buprenorphine Scrn Positive H (Not Detect) ng/mL Ur Oxycodone Screen Not Detected (Not Detect) ng/mL Urine Methadone Screen Not Detected (Not Detect) ng/mL Urine Fentanyl Screen Not Detected (Not Detect) Ur Barbiturates Screen Not Detected (Not Detect) Ur Phencyclidine Scrn Not Detected (Not Detect) Ur Amphetamines Screen Not Detected (Not Detect) U Benzodiazepines Scrn Not Detected (Not Detect) Urine Cocaine Screen Not Detected (Not Detect) U Marijuana (THC) Screen Not Detected (Not Detect) Ethyl Alcohol 211 mg/dL Influenza Type A (PCR) (Negative) Influenza Type B (PCR) (Negative) RSV RNA Qual (PCR) (Negative) SARS-CoV-2 RNA (RT-PCR) (Negative) 07/26/24 Range/Units 09:29 WBC (4.8-10.8) X10*3/uL RBC (4.60-5.80) X10*6/uL Hgb (14.0-18.0) g/dl Hct (42.0-52.0) % MCV (80.0-98.0) fL MCH (27.0-33.0) pg MCHC (31.0-36.0) g/dl RDW (11.0-16.0) % Plt Count (160-400) X10*3/uL MPV (9.4-12.4) fL Immature Gran % (Auto) (0.0-0.4) % Neut % (Auto) (45-73) % Lymph % (Auto) (20-40) % Hinds % (Auto) (2-11) % Eos % (Auto) (0-4) % Baso % (Auto) (0-2) % Lymph # (Auto) (1.2-4.9) X10*3/uL Hinds # (Auto) (0.1-1.2) X10*3/uL Eos # (Auto) (0.0-0.4) X10*3/uL Baso # (Auto) (0.0-0.2) X10*3/uL Abs Immat Gran (auto) (0.00-0.03) X10*3/uL Absolute Neuts (auto) (2.0-8.3) x10*3/uL Absolute Nucleated RBC (0.0-0.012) X10*3/uL Nucleated RBC % (auto) (0.0-0.2) /100WBC PT (10.9-12.4) SEC INR (0.9-1.1) Sodium (135-145) mmol/L Potassium (3.3-5.1) mmol/L Chloride (96-108) mmol/L Carbon Dioxide (22-29) mmol/L Anion Gap (12-20) BUN (9-16) mg/dL Creatinine (0.5-1.4) mg/dL Estim Creat Clear Calc Estimated GFR Random Glucose (60-115) mg/dL Calcium (8.4-10.2) mg/dL Magnesium (1.6-2.6) mg/dL Total Bilirubin (0.0-1.0) mg/dL Direct Bilirubin (0.0-0.5) mg/dL AST (5-37) U/L ALT (0-40) U/L Alkaline Phosphatase (39-117) U/L Total Creatine Kinase (38-174) U/L Troponin I High Sens (<3.5-35.0) ng/L B-Natriuretic Peptide (<100) pg/mL Total Protein (6.5-8.0) g/dL Albumin (3.5-5.0) g/dL Urine Color Urine Appearance Urine pH (5.0-9.0) Ur Specific [place] (1.005-1.025) Urine Protein (Neg-Trace) mg/dL Urine Glucose (UA) (Negative) mg/dL Urine Ketones (Negative) mg/dL Urine Blood (Negative) Urine Nitrite (Negative) Ur Leukocyte Esterase (Negative) Urine Opiates Screen (Not Detect) Ur Buprenorphine Scrn (Not Detect) ng/mL Ur Oxycodone Screen (Not Detect) ng/mL Urine Methadone Screen (Not Detect) ng/mL Urine Fentanyl Screen (Not Detect) Ur Barbiturates Screen (Not Detect) Ur Phencyclidine Scrn (Not Detect) Ur Amphetamines Screen (Not Detect) U Benzodiazepines Scrn (Not Detect) Urine Cocaine Screen (Not Detect) U Marijuana (THC) Screen (Not Detect) Ethyl Alcohol mg/dL Influenza Type A (PCR) NEGATIVE (Negative) Influenza Type B (PCR) NEGATIVE (Negative) RSV RNA Qual (PCR) NEGATIVE (Negative) SARS-CoV-2 RNA (RT-PCR) NEGATIVE (Negative) Independent Interpretation I performed an independent interpretation of an: EKG (A flutter, rate 81 beats per minute, normal QTC), Ultrasound and CT Scan Interpretation: CT head and C-spine notable for no ICH, skull or cervical vertebral fracture or subluxation. CT abdomen pelvis notable for hepatic steatosis, no other acute abnormalities. Right upper quadrant ultrasound notable for echogenic layering sludge with positive sonographic Haq's sign. Radiology Impression Discussion of test interpretation with radiology: I have reviewed the radiologist's reading. Radiologist Impression: US/US abdomen limited IMPRESSION: 1. Gallbladder demonstrating echogenic layering sludge with a positive sonographic Haq's sign. No significant wall thickening (borderline at 3 mm) and no definite pericholecystic fluid collection. Cannot exclude acute cholecystitis. 2. No biliary dilatation. CT/CT abdomen pelvis w IV con IMPRESSION: 1. No evidence of traumatic injury to the abdomen or pelvis. 2. Marked hepatic steatosis. CT/CT head/brain wo IV con IMPRESSION: No acute intracranial abnormality. No fracture evident. CT/CT cervical spine wo IV con IMPRESSION: 1. No CT evidence of acute cervical spine fracture or injury. 2. Degenerative spondylosis and mild right convex scoliosis. 3. Paraseptal emphysematous change in the lung apices. External Record Review External record reviewed: Inpatient record, Office record and Outpatient record Critical Care Time Critical Care Time Critical Care Time: Yes Total Critical Care Time: 45 Attestation: I have personally provided critical care time exclusive of time spent on separately billable procedures. Time includes review of lab data, radiology results, discussion with consultants, and monitoring for potential decompensation. Intervention performed as documented. Discharge Plan Discharge Clinical Impression: Hypomagnesemia, Alcohol use disorder, Elevated LFTs Patient Disposition: Admitted As Inpatient Prescriptions: No Action diltiazem HCl [Tiadylt ER] 300 mg capsule,extended release 24 hr 300 mg PO DAILY Qty: 90 0RF metoprolol tartrate 100 mg tablet 100 mg PO BID 90 Days Qty: 180 3RF Rx Instructions: Dose increase atorvastatin 20 mg tablet 20 mg PO BEDTIME Qty: 90 0RF Motegrity 2 mg tablet 2 mg PO DAILY Qty: 90 2RF magnesium oxide 500 mg capsule 500 mg PO DAILY Qty: 30 1RF pantoprazole 40 mg tablet,delayed release (DR/EC) 40 mg PO DAILY@0630 Qty: 30 2RF Rx Instructions: take one tablet half an hour before breakfast albuterol sulfate [Ventolin HFA] 90 mcg/actuation HFA aerosol inhaler 90 mcg inhalation Q4-6H PRN (Reason: Shortness Of Breath Or Wheezing) Qty: 8.5 0RF clonazepam [Klonopin] 1 mg tablet 1 mg PO BID PRN (Reason: Anxiety) Qty: 60 1RF digoxin 125 mcg (0.125 mg) tablet 125 mcg PO DAILY potassium chloride 20 mEq tablet extended release 20 meq PO DAILY Trelegy Ellipta 200-62.5-25 mcg blister with device 1 ea inhalation DAILY buprenorphine-naloxone 8-2 mg tablet, sublingual 1 tab sublingual TID Patient Comments: TOOK HALF A FILM THIS AM bisacodyl [Dulcolax (bisacodyl)] 5 mg tablet,delayed release (DR/EC) 10 mg PO BEDTIME Qty: 180 4RF oxygen via NC 2 l inhalation DAILY Qty: 1 0RF Print Language: Azeri
--- OUTSIDE RECORDS SUMMARY | 2024-07-25 12:37 | XMS_ITS | Clinical Summary ---
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 Name Role Phone Evelyn Ibrahim MD Primary Care Provider [phone] Allergies Active Allergy Reactions Criticality Noted Date [...] 18 g 3 05/15/2024 05/16/19 26 Active fluticasone-ume clidinium-vilan terol (Trelegy Ellipta) 200-62.5-25 mcg inhaler INHALE 1 PUFF INTO THE LUNGS DAILY 1 each 5 06/19/2024 12/17/19 25 Active Active Problems Problem Noted Date Diagnosed Date High cholesterol 12/31/2017 Chronic back pain 12/09/2017 Obstructive sleep apnea 06/16/2017 Anxiety 03/16/2017 Spinal stenosis of lumbar region 12/15/2016 Hyperlipidemia 03/19/2014 Pre-diabetes 03/19/2014 Tobacco use disorder 03/08/2014 COPD (chronic obstructive pu lmonary disease) ([facility] V24, [facility] V28) 03/09/2013 Depression 03/09/2013 GERD (gastroesophageal reflux disease) 4 HTN (hypertension) 03/09/2013 Insomnia 03/09/2013 Immunizations Name Administration Dates Next Due Influenza [...] DX:Anxiety COPD (chronic obstructive pu lmonary disease) ([facility] V24, [facility] V28) 03/09/2013 DX:COPD (chronic o bstructive pulmonary disease) ([facility]) Depression 03/09/2013 DX:Depression GERD (gastroesophageal reflux disease) [...] Insurance MEDICARE [place]ICAID - [place] Care Teams Dredge Operator Relationship Specialty Start Date End Date Evelyn Ibrahim MD [address] [address] PCP - General Internal Medicine 04/11/21
--- NOTE | 2024-07-25 12:40 | ECG_ITS ---
Test Reason : AFLUTTER Blood Pressure : */* mmHG Vent. Rate : 81 BPM Atrial Rate : 256 BPM P-R Int : * ms QRS Dur : 82 ms QT Int : 352 ms P-R-T Axes : 83 30 -4 degrees QTcB Int : 408 ms Atrial flutter with variable A-V block with premature ventricular or aberrantly conducted complexes Low voltage QRS ST & T wave abnormality, consider anterior ischemia Abnormal ECG When compared with ECG of 15-Feb-2024 11:21, Left anterior fascicular block is no longer Present Criteria for Inferior infarct are no longer Present T wave inversion no longer evident in Inferior leads Nonspecific T wave abnormality no longer evident in Lateral leads QT has shortened Referred By: Keyana Espinoza Electronically Signed By: LEYLA IGLESIAS MD
[2024-07-25 13:13] LABS: MANUAL DIFF FLAG NO
[2024-07-25 13:15] LABS: Basophils Absolute Auto 0.1 X10*3/uL (0.0-0.2); Basophils Percent Auto 0.8 % (0-2); Eosinophils Percent Auto 0.4 % (0-4); Hematocrit 29.6 % (42.0-52.0); Hemoglobin 10.1 g/dl (14.0-18.0); Imm Gran Abs Auto 0.04 X10*3/uL (0.00-0.03); Imm Gran Pct Auto 0.5 % (0.0-0.4); Lymphocytes Absolute Auto 1.3 X10*3/uL (1.2-4.9); Lymphocytes Percent Auto 17.4 % (20-40); Mean Corpuscular HGB Conc 34.1 g/dl (31.0-36.0); Mean Corpuscular Hemoglobin 37.4 pg (27.0-33.0); Mean Corpuscular Volume 109.6 fL (80.0-98.0); Mean Platelet Volume 11.9 fL (9.4-12.4); Monocytes Percent Auto 13.2 % (2-11); Neutrophils Absolute Auto 5.1 x10*3/uL (2.0-8.3); Neutrophils Percent Auto 67.7 % (45-73); Red Cell Distribution Width 14.5 % (11.0-16.0); White Blood Count 7.6 X10*3/uL (4.8-10.8)
[2024-07-25 13:20] LABS: INTERNATIONAL NORM RATIO 1.2 (0.9-1.1); Prothrombin Time 13.6 SEC (10.9-12.4)
[2024-07-25 13:33] LABS: Ethanol 211 mg/dL
[2024-07-25 13:35] LABS: Platelet Count 66 X10*3/uL (160-400)
[2024-07-25 13:42] LABS: B Type Natriuretic Peptide 275 pg/mL (<100); Troponin-I High Sensitivity 10.2 ng/L (<3.5-35.0)
[2024-07-25 13:48] LABS: Alanine Aminotransferase 41 U/L (0-40); Albumin Level 2.1 g/dL (3.5-5.0); Alkaline Phosphatase 506 U/L (39-117); Anion Gap 10 (12-20); Aspartate Amino Transferase 182 U/L (5-37); Bilirubin Total 2.8 mg/dL (0.0-1.0); Blood Urea Nitrogen 13 mg/dL (9-16); Calcium 7.2 mg/dL (8.4-10.2); Carbon Dioxide 29 mmol/L (22-29); Chloride 100 mmol/L (96-108); Creatinine Clr Calc Pharmacy 168.3; Estimated Glomerular Filt Rate > 60; Glucose Random 92 mg/dL (60-115); Potassium 4.4 mmol/L (3.3-5.1); Sodium 135 mmol/L (135-145); Total Protein 5.5 g/dL (6.5-8.0)
[2024-07-25] MEDS: Magnesium Sulfate/H2O 2 GM/50 ML PIGGYBACK IV (14:05)
[2024-07-25 14:14] LABS: Appearance Urine Clear; Color Urine Dark Yellow; Glucose Urine UA Negative (Negative); Leukocyte Esterase Urine Negative (Negative); Nitrite Urine Negative (Negative); Specific Gravity - Urine 1.015 (1.005-1.025); Urine Blood Negative (Negative); Urine Ketones Trace mg/dL (Negative); Urine Protein Trace mg/dL (Neg-Trace)
[2024-07-25 14:28] LABS: Amphetamine Screen Urine Not Detected (Not Detect); Barbiturates, Urine Not Detected (Not Detect); Benzodiazepines Screen Urine Not Detected (Not Detect); Buprenorphine Scr Positive (Not Detect); Cannabinoid Screen Urine Not Detected (Not Detect); Cocaine Screen Urine Not Detected (Not Detect); Fentanyl, urine Not Detected (Not Detect); Methadone Screen, Urine Not Detected (Not Detect); Opiate Screen Urine Not Detected (Not Detect); Oxycodone Screen Urine Not Detected (Not Detect); Phencyclidine Screen Urine Not Detected (Not Detect)
[2024-07-25] MEDS: iohexoL 350 MG/ML 100 ML INFUS..BTL IV (14:38)
[2024-07-25] MEDS: LORazepam 1 MG TABLET 2 MG PO (17:57)
[2024-07-25 19:03] LABS: Troponin-I High Sensitivity 9.4 ng/L (<3.5-35.0)
--- NOTE | 2024-07-25 19:39 | PC.NURSE ---
Zuleyma ANG made aware of low BP, states will order albumin.
[2024-07-25] MEDS: Albumin Human 25 % 100 ML IV ×2 (19:47→21:09)
--- NOTE | 2024-07-25 22:15 | PC.NURSE ---
Zuleyma ANG held 2x doses albumin. pt received 2/4 doses as ordered.
[2024-07-25] MEDS: Thiamine HCL 100 MG in 0.9 % Sodium Chloride 100 ML 202 MG IV (22:51)
--- NOTE | 2024-07-25 23:00 | PC.NURSE ---
safety search done by security. meds removed from bedside, secured in pharmacy bag and signed by pt. will be given to pharmacy. pt requested and given sandwich, gingerale. call avalos within reach.
[2024-07-26] VITALS (10 sets, daily range): BP systolic 93–121; BP diastolic 53–81; PULSE 65–128; RESP 12–20; TEMP 36.5–36.8; O2SAT 92–100; BMI 21.9
--- NOTE | 2024-07-26 02:57 | ECG_ITS ---
Test Reason : ARRYTHYMIA Blood Pressure : */* mmHG Vent. Rate : 78 BPM Atrial Rate : 249 BPM P-R Int : * ms QRS Dur : 88 ms QT Int : 388 ms P-R-T Axes : * 64 64 degrees QTcB Int : 442 ms Atrial flutter with variable A-V block Low voltage QRS Nonspecific ST abnormality Abnormal ECG When compared with ECG of 25-Jul-2024 12:51, Nonspecific T wave abnormality no longer evident in Inferior leads T wave inversion no longer evident in Anterior leads Nonspecific T wave abnormality now evident in Lateral leads Referred By: Shara Rossi Electronically Signed By: LEYLA IGLESIAS MD
--- NOTE | 2024-07-26 02:58 | PC.NURSE ---
HR up to 120s-130s on monitor, appears to be ?afib. pt states took meds this AM. Zuleyma ANG made aware. order for ekg and ivp metoprolol.
--- NOTE | 2024-07-26 03:05 | PC.NURSE ---
HR improved to 80s-90s prior to medication. held at this time. PA aware and in agreement.
--- NOTE | 2024-07-26 07:46 | PC.NURSE ---
pharmacy notified for missing medications
--- NOTE | 2024-07-26 07:56 | PC.NURSE ---
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
--- NOTE | 2024-07-26 08:29 | MHC.CARE ---
T/w met with patient to discuss possibility of detox placement. He shares that he resides with his GF. He drinks vodka, daily, unless he falls asleep and typically consumed 1-1.5 pints. He reports I quit on my own a few years back but it started up again following a heart attack a few years ago. He confirms cardiology out of [facility]. He reports a hx of detox admission, years and years ago at [facility]. Denies any hx of acute withdrawal sx. Denies any hx of legal issues subsequent to etoh use. When t/w discussed what a detox bed search would entail, he is emphatic he came here for medical issues. He reports I came here because I cannot stand. I have been falling. I have shortness of breath. He is on O2 during assessment and frequently coughing and spitting up into a medical container during assessment. He states I know I need help with the drinking but right now I can't walk without falling. It's hard to stand up. Discussed patient's primary concern of medical with attending ASHIA Valdovinos, who agreed to revisit the recovery consult following CM/ PT.
[2024-07-26] MEDS: Buprenorphine/Naloxone 8/2 mg TAB.SUBL 1 TAB SUBLINGUAL ×3 (08:40→21:11)
[2024-07-26] MEDS: Digoxin 0.125 MG TABLET PO (08:40)
[2024-07-26] MEDS: Potassium Chloride ER 20 MEQ TAB.ER.PRT PO ×2 (08:41→21:10)
[2024-07-26] MEDS: Omeprazole 20 MG CAPSULE.DR PO (08:41)
[2024-07-26] MEDS: dilTIAZem HCL CD 300 MG CAP.ER.24H PO (08:42)
[2024-07-26] MEDS: Metoprolol Tartrate 100 MG TABLET PO ×2 (08:42→21:11)
[2024-07-26] MEDS: Fluticasone/Umeclidinium/Vilanterol 200/62.5/25 BLST.W.DEV 1 PUFF INHALE (08:42)
--- NOTE | 2024-07-26 08:47 | PC.NURSE ---
pt medicated per order
--- NOTE | 2024-07-26 08:47 | PC.NURSE ---
pt at bedside, stated they are going to suggest STR for the patient to help gain strength.
--- NOTE | 2024-07-26 10:12 | MHC.CM.ED ---
Received case management consult overnight. Patient's current CIWA=4. Will not be able to find STR until CIWA=0 for at least 24 hours. Nevin ANG aware. Patient will potentially be admitted to the hospital d/t ETOH w/d. Continue to monitor for d/c needs.
[2024-07-26 10:13] LABS: Influenza A PCR NEGATIVE (Negative); Influenza B PCR NEGATIVE (Negative); Resp Syncy Virus RNA Qual PCR NEGATIVE (Negative); SARS COV2 PCR INHOUSE NEGATIVE (Negative)
[2024-07-26] MEDS: PHENobarbitaL sodium 130 MG/ML IM ONCE 310 MG IM (10:35)
--- NOTE | 2024-07-26 10:37 | PC.NURSE ---
pt medicated with phenobarb per orders
--- NOTE | 2024-07-26 11:04 | PHA.MEDREC ---
Addendum entered by Samuel Ochoa PharmD 07/26/24 11:22: reviewed Original Note: Pharmacy Consult ? Medication Reconciliation Pharmacy has completed the medication reconciliation. Spoke to patient to confirm med list. Patient states he has his medication with him. Patient states he is no longer taking Citalopram 20 mg, Flecaninide 50 mg. Utilized claims and rx bottles from patient to confirm med list. Potassium chlor mEq 20 mg is daily not BID.
[2024-07-26 11:48] LABS: MANUAL DIFF FLAG NO
[2024-07-26 11:53] LABS: Basophils Percent Auto 0.7 % (0-2); Eosinophils Absolute Auto 0.1 X10*3/uL (0.0-0.4); Eosinophils Percent Auto 1.1 % (0-4); Hematocrit 24.9 % (42.0-52.0); Hemoglobin 8.6 g/dl (14.0-18.0); Imm Gran Abs Auto 0.06 X10*3/uL (0.00-0.03); Imm Gran Pct Auto 1.1 % (0.0-0.4); Lymphocytes Absolute Auto 0.9 X10*3/uL (1.2-4.9); Lymphocytes Percent Auto 15.6 % (20-40); Mean Corpuscular HGB Conc 34.5 g/dl (31.0-36.0); Mean Corpuscular Hemoglobin 38.1 pg (27.0-33.0); Mean Platelet Volume 10.7 fL (9.4-12.4); Monocytes Absolute Auto 0.7 X10*3/uL (0.1-1.2); Monocytes Percent Auto 13.6 % (2-11); Neutrophils Absolute Auto 3.7 x10*3/uL (2.0-8.3); Neutrophils Percent Auto 67.9 % (45-73); Red Blood Count 2.26 X10*6/uL (4.60-5.80); Red Cell Distribution Width 14.4 % (11.0-16.0); White Blood Count 5.4 X10*3/uL (4.8-10.8)
[2024-07-26 11:58] LABS: Mean Corpuscular Volume 110.2 fL (80.0-98.0); Platelet Count 63 X10*3/uL (160-400)
[2024-07-26 12:10] LABS: Alanine Aminotransferase 31 U/L (0-40); Albumin Level 2.3 g/dL (3.5-5.0); Alkaline Phosphatase 391 U/L (39-117); Anion Gap 10 (12-20); Aspartate Amino Transferase 127 U/L (5-37); Bilirubin Total 3.6 mg/dL (0.0-1.0); Blood Urea Nitrogen 8 mg/dL (9-16); Calcium 7.1 mg/dL (8.4-10.2); Carbon Dioxide 31 mmol/L (22-29); Chloride 100 mmol/L (96-108); Creatinine Clr Calc Pharmacy 191.3; Estimated Glomerular Filt Rate > 60; Glucose Random 90 mg/dL (60-115); Lipase 7 U/L (8-78); Magnesium 1.1 mg/dL (1.6-2.6); Potassium 3.6 mmol/L (3.3-5.1); Sodium 137 mmol/L (135-145); Total Protein 5.3 g/dL (6.5-8.0)
[2024-07-26] MEDS: Magnesium Sulfate/H2O 2 GM/50 ML PIGGYBACK IV ×2 (12:13→18:41)
--- NOTE | 2024-07-26 12:17 | PC.NURSE ---
magnesium started per orders
[2024-07-26] MEDS: PHENobarbitaL sodium 130 MG/ML VIAL IM Q3Hx2 233 MG IM ×2 (13:31→16:32)
--- NOTE | 2024-07-26 13:43 | MHC.CLN ---
NUTRITION NUTRITION CONSULT-ROUTINE PATIENT IN ED WITH ETOH WITHDRAWAL AND CHOLECYSTITIS. REPORTED NUTRITION RISK FACTORS POOR PO >4 DAYS AND WEIGHT LOSS 34# OR MORE. REVIEW OF WEIGHT HX SHOWS WEIGHT LOSS X ONE YEAR -24#, 13%. DIET=REGULAR. NO ADDITIONAL NUTRITION INTERVENTIONS AT THIS TIME.
--- NOTE | 2024-07-26 14:21 | P.HPHOSP_ITS ---
History of Present Illness Date of Service: 07/26/24 Chief Complaint: Recent fall 54 year old male with a past medical history of AL, COPD on home O2 2L, Afib/Aflutter, smoker, HLD, AUD, DAREK, AGUSTÍN, Falls, and umbilical hernia, who presented to the ER due to a recent fall. Patient denies LOC or dizziness. He denies fever, chills, dizziness, CP, SOB, nausea, vomiting, diarrhea, or blood in stools. He reports abdominal pain that is described as stabbing when he touches his abdomen. Nikko reports that he uses a cane and walker and his mobility has gotten worse recently. He reports drinking 1.5 pints of Vodka daily and wants help with alcohol detox. In the ER: CT of head was negative for a bleed or fracture Abdomen CT no evidence of traumatic injury to the abdominal or pelvic area. Marked hepatic steatosis Cervical Spine CT no acute cervical spine fracture or injury. Degenerative spondylosis and mild right convex scoliosis. Paraseptal emphysematous change in the lung apices. US of Abdomen 1. Gallbladder demonstrating echogenic layering sludge with a positive sonographic Haq's sign. No significant wall thickening (borderline at 3 mm) and no definite pericholecystic fluid collection. Cannot exclude acute cholecystitis.2. No biliary dilatation. Labs significant for RBC 2.26, hemoglobin 8.6, hematocrit 24.9, platelets 63, magnesium 1.1, ALT 31, AST 127, alkaline phosphatase 391, bilirubin 3.6 albumin 2.3, lipase 7, calcium 7.1 Urinalysis was negative Toxicology was positive for buprenorphine Flu a, flu B, RSV, SARS COVID 2 all negative Review of Systems 2 Review of Systems: General: Denies fever or chills. No trouble sleeping ?Skin: no rash or lesions ?Eyes: denies vision changes ?Ears: denies pain or discharge ?Mouth: denies pain or dental concerns ?Pharynx/Layrnx: denies sore throat, diff swallowing, voice change, coughing with eating ?Lungs: denies cough or SOB ?Heart: denies chest pain or palpitations ?Abdomen: denies nausea, vomiting, diarrhea, rectal bleeding. Reports constipation and abdominal pain ?: denies incontinence, pain with urination, frequency, retention of urine ?Musculoskeletal: denies muscle or joint pain/swelling ?Neuro: denies headache, weakness or dizziness [facility] Medical History Substance abuse in family Back pain Constipation Bipolar 1 disorder SOB (shortness of breath) Afib Myocardial infarction Tubular adenoma Tariq's esophagus determined by biopsy GERD (gastroesophageal reflux disease) Chronic idiopathic constipation Hx of opioid abuse Obesity Hyperlipidemia Asthma Peripheral neuropathy Lower back pain Family History Father No problems noted. Mother Chronic a-fib Sister Chronic a-fib Breast cancer Ovarian cancer Surgical History S/P cardiac cath Hx of colonoscopy History of esophagogastroduodenoscopy (EGD) History of back surgery Social History Household Members: Significant Other Housing: Apartment Are you a primary hearing healthcare practitioner to a significant other at home: No Do you presently have visiting nurse or other home services: No Alcohol intake: current Alcohol intake frequency: 3 or more drinks per day Alcohol type: hard liquor Patient Tobacco Use Status: Current everyday Tobacco user Tobacco use type: Cigarette Cigarette Packs Per Day: 0.5 Cigarettes Per Day: 10.0 Smoked in Last 30 Days: Yes e-Cigarette/Vaping Use: Never Used Patient Interested in Nicotine Replacement: Yes Patient Given Instructions on How to Stop Smoking: No Second Hand Smoke Exposure: Yes Use of substances other than those prescribed or required for medical reasons: No Have you been hit, kicked, punched, or otherwise hurt by someone within the past year? If so, by whom?: No Do you feel safe in your current relationship?: Yes Is there a partner from a previous relationship who is making you feel unsafe now?: No Are you made to feel afraid or neglected: No Spiritual Healthcare Practices: worship Advance Directives: Yes Advance Directives on File: Yes Advance Directives Date on File: 07/28/22 Do you have a plan to hurt others: No Plan Recently lost weight without trying: Yes How much weight loss: 34pounds or more Eating poorly because of decreased appetite: Yes Nutrition screen score: 7 Nutrition Risks: Poor intake 0-25% >4 days Poor oral hygiene: No service: No Current occupational status: disabled Cognitive needs: No Hearing needs: No Vision needs: Yes Meds Allergies Allergy/AdvReac Type Severity Reaction Status Date / Time morphine Allergy Severe Anaphylaxis Verified 07/25/24 12:21 acetaminophen [From Tylenol] Allergy Intermediate Gastrointestinal Verified 07/25/24 12:21 Upset Active Medications: Current Medications Atorvastatin Calcium (Atorvastatin Calcium 20 Mg Tablet) 20 mg PO BEDTIME [facility] Bisacodyl (Bisacodyl 5 Mg Tablet.) 10 mg PO BEDTIME [facility] Buprenorphine/Naloxone (Buprenorphine/Naloxone 8/2 Mg Tab.Subl) 1 tab SUBLINGUAL TID [facility] Last Admin: 07/26/24 08:40 Dose: 1 tab Digoxin (Digoxin 0.125 Mg Tablet) 0.125 mg PO DAILY [facility]; Protocol Last Admin: 07/26/24 08:40 Dose: 0.125 mg Diltiazem HCl (Diltiazem Hcl Cd 300 Mg Cap.Er.24h) 300 mg PO DAILY [facility]; Protocol Last Admin: 07/26/24 08:42 Dose: 300 mg Fluticasone/Umeclidinium/Vilanterol (Fluticasone/Umeclidinium/Vilanterol 200/62.5/25 Blst.W.Dev) 1 puff INHALE DAILY [facility] Last Admin: 07/26/24 08:42 Dose: 1 puff Metoprolol Tartrate (Metoprolol Tartrate 100 Mg Tablet) 100 mg PO BID [facility] [place]; Protocol Last Admin: 07/26/24 08:42 Dose: 100 mg Non-Formulary Medication (Prucalopride [Motegrity]) 2 mg PO DAILY [facility] [place] Omeprazole (Omeprazole 20 Mg Capsule.) 20 mg PO DAILY@0630 [facility] Last Admin: 07/26/24 08:41 Dose: 20 mg Pharmacy Consult (Consult Rx Etoh Phenob Im/Po) 1 each MISCELLANE ONCE PRN; Protocol PRN Reason: Consult order Phenobarbital (Phenobarbital 30 Mg Tablet) 60 mg PO BID [facility] Stop: 07/28/24 09:01 Phenobarbital (Phenobarbital 30 Mg Tablet) 30 mg PO BID [facility] Stop: 07/30/24 09:01 Phenobarbital (Phenobarbital 30 Mg Tablet) 30 mg PO BEDTIME [facility] [place] Stop: 07/31/24 21:01 Phenobarbital Sodium (Phenobarbital Sodium 130 Mg/Ml Vial Im Q3hx2) 233 mg IM Q3H [facility] [place] Stop: 07/26/24 16:31 Last Admin: 07/26/24 13:31 Dose: 233 mg Potassium Chloride (Potassium Chloride Er 20 Meq Tab.Er.Prt) 20 meq PO BID [facility] [place] Last Admin: 07/26/24 08:41 Dose: 20 meq Home Medications ?Medication ?Instructions ?Recorded ?Confirmed ?Last Taken ?Type buprenorphine 8 mg-naloxone 2 mg 1 tab sublingual TID 08/15/20 07/26/24 07/25/24 09:00 History sublingual tablet fluticasone fur. 200 mcg-umeclid 1 ea inhalation DAILY 07/24/22 07/26/24 07/25/24 09:00 History 62.5 mcg-vilant 25 mcg inhalat.powder (Trelegy Ellipta) digoxin 125 mcg (0.125 mg) tablet 125 mcg PO DAILY 07/26/24 07/26/24 07/25/24 09:00 History potassium chloride 20 mEq 20 meq PO DAILY 07/26/24 07/26/24 07/25/24 History tablet,extended release Physical Exam 2 Vital Signs and Narrative: Vital Signs: Last Vital Signs Temp 98.2 F 07/26/24 09:58 Pulse 78 07/26/24 11:52 Resp 17 07/26/24 09:58 BP 96/69 07/26/24 13:19 Pulse Ox 98 07/26/24 09:58 O2 Del Method Nasal Cannula 07/26/24 09:58 O2 Flow Rate 2 07/26/24 06:47 BMI result Body Mass Index 21.3 Gen: comfortable NAD ?HEENT: PERRL, EOMI ?Neuro: CN II-XII normal, sensation intact: 5/5 strength in the upper extremities and lower extremities I: Not performed ?II: Pupils equal and reactive, ?III, IV, : EOM intact, no gaze preference or deviation, no nystagmus. ?V: normal sensation in V1, V2, and V3 segments bilaterally ?VII: no asymmetry, no nasolabial fold flattening ?VIII: normal hearing to speech ?IX, X: normal palatal elevation, no uvular deviation ?XI: 5/5 head turn and 5/5 shoulder shrug bilaterally ?XII: midline tongue protrusion ?CV: rate regular at 60 BPM, rhythm regular in an A. Flutter, with occasional PVC's noted. no M/R/G ?Pulm: Right side clear, left side with expiratory rub ?GI: +nl BS, soft, abdomen tender ?ext: no clubbing or cyanosis. Bilateral legs with +1 pitting edema. Results Labs 07/26/24 11:44 07/26/24 11:44 Labs: Laboratory Results - last 24 hr 07/25/24 07/25/24 07/26/24 13:03 14:08 09:29 MCV MCH MCHC RDW Plt Count MPV Immature Gran % (Auto) Neut % (Auto) Lymph % (Auto) Stone % (Auto) Eos % (Auto) Baso % (Auto) Lymph # (Auto) Stone # (Auto) Eos # (Auto) Baso # (Auto) Abs Immat Gran (auto) Absolute Neuts (auto) Absolute Nucleated RBC Nucleated RBC % (auto) Anion Gap Estim Creat Clear Calc Estimated GFR Random Glucose Calcium Magnesium Total Bilirubin Direct Bilirubin 2.0 H AST ALT Alkaline Phosphatase Total Protein Albumin Lipase Urine Opiates Screen Not Detected Ur Buprenorphine Scrn Positive H Ur Oxycodone Screen Not Detected Urine Methadone Screen Not Detected Urine Fentanyl Screen Not Detected Ur Barbiturates Screen Not Detected Ur Phencyclidine Scrn Not Detected Ur Amphetamines Screen Not Detected U Benzodiazepines Scrn Not Detected Urine Cocaine Screen Not Detected U Marijuana (THC) Screen Not Detected Influenza Type A (PCR) NEGATIVE Influenza Type B (PCR) NEGATIVE RSV RNA Qual (PCR) NEGATIVE SARS-CoV-2 RNA (RT-PCR) NEGATIVE 07/26/24 11:44 MCV 110.2 H MCH 38.1 H MCHC 34.5 RDW 14.4 Plt Count 63 L MPV 10.7 Immature Gran % (Auto) 1.1 H Neut % (Auto) 67.9 Lymph % (Auto) 15.6 L Stone % (Auto) 13.6 H Eos % (Auto) 1.1 Baso % (Auto) 0.7 Lymph # (Auto) 0.9 L Stone # (Auto) 0.7 Eos # (Auto) 0.1 Baso # (Auto) 0.0 Abs Immat Gran (auto) 0.06 H Absolute Neuts (auto) 3.7 Absolute Nucleated RBC 0.000 Nucleated RBC % (auto) 0.0 Anion Gap 10 L Estim Creat Clear Calc 191.3 Estimated GFR > 60 Random Glucose 90 Calcium 7.1 L Magnesium 1.1 L* Total Bilirubin 3.6 H Direct Bilirubin AST 127 H ALT 31 Alkaline Phosphatase 391 H Total Protein 5.3 L Albumin 2.3 L Lipase 7 L Urine Opiates Screen Ur Buprenorphine Scrn Ur Oxycodone Screen Urine Methadone Screen Urine Fentanyl Screen Ur Barbiturates Screen Ur Phencyclidine Scrn Ur Amphetamines Screen U Benzodiazepines Scrn Urine Cocaine Screen U Marijuana (THC) Screen Influenza Type A (PCR) Influenza Type B (PCR) RSV RNA Qual (PCR) SARS-CoV-2 RNA (RT-PCR) Imaging Radiologist's Impressions: Impressions Head CT 07/25/24 12:40 IMPRESSION: No acute intracranial abnormality. No fracture evident. Electronically signed by: Dario Childress MD 07/25/2024 02:50 PM EDT RP Abdomen/Pelvis CT 07/25/24 13:31 IMPRESSION: 1. No evidence of traumatic injury to the abdomen or pelvis. 2. Marked hepatic steatosis. Electronically signed by: Uzair Butler MD 07/25/2024 02:50 PM EDT RP Cervical Spine CT 07/25/24 13:47 IMPRESSION: 1. No CT evidence of acute cervical spine fracture or injury. 2. Degenerative spondylosis and mild right convex scoliosis. 3. Paraseptal emphysematous change in the lung apices. Electronically signed by: Dario Childress MD 07/25/2024 02:57 PM EDT RP Abdomen Ultrasound 07/25/24 15:53 IMPRESSION: 1. Gallbladder demonstrating echogenic layering sludge with a positive sonographic Haq's sign. No significant wall thickening (borderline at 3 mm) and no definite pericholecystic fluid collection. Cannot exclude acute cholecystitis. 2. No biliary dilatation. Electronically signed by: Dario Childress MD 07/25/2024 04:15 PM EDT RP Chest X-Ray 07/26/24 08:31 IMPRESSION: No active pulmonary disease. Electronically signed by: Dario Childress MD 07/26/2024 08:51 AM EDT RP Assessment and Plan (1) Atrial flutter: Qualifiers: Atrial flutter type: typical Qualified Code(s): I48.3 - Typical atrial flutter Status: Acute (2) Alcohol use: Status: Acute Plan 54-year-old male who presents with increased falls and alcohol use disorder. Alcohol Use Disorder -Phenobarbitol protocol -Thiamine, folic acid Cholecystitis -Hida scan ordered for further evaluation -Zosyn IV ABX OUD -continue buprenorphine Chronic Macrocytic hyperchromic anemia -h/h trending down, continue to monitor -iron studies -type and cross -Patient denies any melena or erica bleeding HLD -continue atorvastatin Thrombocytopenia -chronic likely due to AUD A Flutter -Eliquis on hold due to Thrombocytopenia -Monitor on Telemetry -Continue digoxin and Cardizem Hypomagnesemia -Patient received 4 grams -Recheck Mg levels tomorrow Hypocalciemia -Corrected calcium 8.1 Falls -PT evaluation Code Full VTE: compression, Contraindicated for medication at this time due to thryombocytopenia Quality Stroke Does the patient have a stroke diagnosis?: No VTE Prior VTE?: No VTE Risk Level:: Medical - low VTE Device Contraindication: N/A - Device Ordered VTE Drug Contraindication: Treatment Not Indicated
[2024-07-26] MEDS: Pantoprazole Sodium 40 MG/10 ML VIAL IVPUSH (15:38)
--- NOTE | 2024-07-26 15:42 | PC.NURSE ---
pt medicated per order, dr alonso messaged asked for diet to be changed to npo at midnight as pt to have scan done tomm.
[2024-07-26] MEDS: Thiamine HCL 100 MG TABLET PO (16:32)
[2024-07-26] MEDS: Piperacillin Sodium/Tazobactam 3.375 GM in 0.9 % Sodium Chloride 50 ML IV ×2 (16:41→21:11)
--- NOTE | 2024-07-26 16:43 | PC.NURSE ---
per dr alonso pt does not need blood cultures
[2024-07-26 16:49] LABS: Iron 76 mcg/dL (45-160); Magnesium 1.4 mg/dL (1.6-2.6); Percent Iron Saturation 75 % (15-50); Total Iron Binding Capacity 101 mcg/dL (228-428); Unsaturated Iron Binding < 25 ug/dL
[2024-07-26] MEDS: Magnesium Oxide 400 MG TABLET PO (18:41)
--- NOTE | 2024-07-26 18:49 | PC.NURSE ---
pt medicated with magnesium per order
[2024-07-26] MEDS: bisacodyL 5 MG TABLET.DR 10 MG PO (21:10)
[2024-07-26] MEDS: Atorvastatin Calcium 20 MG TABLET PO (21:10)
[2024-07-26] MEDS: PHENobarbitaL 30 MG TABLET 60 MG PO (21:10)
[2024-07-27] VITALS (8 sets, daily range): BP systolic 100–110; BP diastolic 58–78; PULSE 65–77; RESP 16–18; TEMP 36.6–37.2; O2SAT 93–98
[2024-07-27] MEDS: Pantoprazole Sodium 40 MG/10 ML VIAL IVPUSH ×2 (04:05→15:27)
[2024-07-27] MEDS: Piperacillin Sodium/Tazobactam 3.375 GM in 0.9 % Sodium Chloride 50 ML IV ×4 (04:05→21:58)
[2024-07-27 06:35] LABS: MANUAL DIFF FLAG NO
[2024-07-27 06:42] LABS: Basophils Absolute Auto 0.1 X10*3/uL (0.0-0.2); Basophils Percent Auto 1.5 % (0-2); Eosinophils Absolute Auto 0.1 X10*3/uL (0.0-0.4); Hematocrit 24.6 % (42.0-52.0); Hemoglobin 8.5 g/dl (14.0-18.0); Imm Gran Abs Auto 0.06 X10*3/uL (0.00-0.03); Imm Gran Pct Auto 1.3 % (0.0-0.4); Lymphocytes Absolute Auto 1.1 X10*3/uL (1.2-4.9); Lymphocytes Percent Auto 23.1 % (20-40); Mean Corpuscular HGB Conc 34.6 g/dl (31.0-36.0); Mean Corpuscular Hemoglobin 37.6 pg (27.0-33.0); Mean Corpuscular Volume 108.8 fL (80.0-98.0); Mean Platelet Volume 11.1 fL (9.4-12.4); Monocytes Absolute Auto 0.8 X10*3/uL (0.1-1.2); Monocytes Percent Auto 16.5 % (2-11); Neutrophils Absolute Auto 2.6 x10*3/uL (2.0-8.3); Neutrophils Percent Auto 54.6 % (45-73); Red Blood Count 2.26 X10*6/uL (4.60-5.80); Red Cell Distribution Width 14.4 % (11.0-16.0); White Blood Count 4.7 X10*3/uL (4.8-10.8)
[2024-07-27 06:43] LABS: Platelet Count 69 X10*3/uL (160-400)
[2024-07-27 06:54] LABS: Alanine Aminotransferase 26 U/L (0-40); Albumin Level 2.1 g/dL (3.5-5.0); Alkaline Phosphatase 342 U/L (39-117); Anion Gap 9 (12-20); Aspartate Amino Transferase 97 U/L (5-37); Bilirubin Total 2.7 mg/dL (0.0-1.0); Blood Urea Nitrogen 7 mg/dL (9-16); Calcium 7.3 mg/dL (8.4-10.2); Carbon Dioxide 30 mmol/L (22-29); Chloride 102 mmol/L (96-108); Creatinine Clr Calc Pharmacy 200.9; Estimated Glomerular Filt Rate > 60; Glucose Random 95 mg/dL (60-115); Potassium 3.4 mmol/L (3.3-5.1); Sodium 138 mmol/L (135-145); Total Protein 4.8 g/dL (6.5-8.0)
--- NOTE | 2024-07-27 08:13 | HO.WOUND ---
Wound Consult: Initial 54yr old?male admitted to [facility] on 07/26/24- See progress notes and H&P for detailed history.? Wound consult placed for Left Swenson wound.? Patient agreeable to assessment and photo documentation.? Patient is not able to recall nature of injury at the time of my consult. Left Swenson Etiology: ?Abrasion ?Present on Admission Measurements: 1cm x 1cm x 0.1cm Wound Bed: pale pink wound bed clean and moist Drainage / Odor: scant serous Edges: ? irregular and attached Sanaz wound: bruising - ? some LE swelling noted No Induration, Fluctuance or Warmth noted Pain: denies Goals of Treatment: ? moist wound healing with foam dressing Recommendations: 1. Turn and Reposition every 2 hours and as needed for patient comfort.? Use pillows or wedges to support off loading positions. 2. Off Load all bony prominences with use of pillows and heel boots if needed.? Apply Preventative foams where needed. ? 3. Monitor for incontinence and moisture control, use barrier creams when needed for prevention and treatment. 4. Provide adequate and supplemental nutrition.? 5. When applicable maintain blood glucose levels per Providers order. Left Swenson - Cleanse with saline, pat dry. Apply skin prep to periwound. Cover with foam dressing change every 3 days and PRN. Re-consult wound care Nurse for wound deterioration or wound changes.
[2024-07-27] MEDS: Fluticasone/Umeclidinium/Vilanterol 200/62.5/25 BLST.W.DEV 1 PUFF INHALE (08:31)
[2024-07-27] MEDS: Metoprolol Tartrate 100 MG TABLET PO ×2 (08:33→21:54)
[2024-07-27] MEDS: PHENobarbitaL 30 MG TABLET 60 MG PO ×2 (08:33→21:54)
[2024-07-27] MEDS: Digoxin 0.125 MG TABLET PO (08:33)
[2024-07-27] MEDS: Potassium Chloride ER 20 MEQ TAB.ER.PRT PO ×2 (08:33→21:55)
[2024-07-27] MEDS: Buprenorphine/Naloxone 8/2 mg TAB.SUBL 1 TAB SUBLINGUAL ×3 (08:33→21:55)
[2024-07-27] MEDS: Thiamine HCL 100 MG TABLET PO (08:33)
[2024-07-27] MEDS: 0.9 % Sodium Chloride Flush 3 ML SYRINGE IVFLUSH ×3 (08:34→21:55)
[2024-07-27] MEDS: Folic Acid 1 MG TABLET PO (08:34)
[2024-07-27] MEDS: Magnesium Oxide 400 MG TABLET PO ×2 (08:34→15:28)
[2024-07-27 09:16] LABS: Magnesium 1.3 mg/dL (1.6-2.6)
--- NOTE | 2024-07-27 10:36 | P.CONGS_ITS ---
History of Present Illness Consult details Consult date: 07/27/24 <Lynnette Escalera PA-C - Last Filed: 07/27/24 12:03> Requesting physician: Mat Santo <NAVI Ramirez Last Filed: 07/27/24 12:03> Narrative: 54 year old male with PMH significant for KS, COPD on home O2 2L, Afib/Aflutter, smoker, hyperlipidemia, alcohol use disorder, substance use disorder who presented to the ED after a fall. He was on the toilet last night and when he got up, he lost his balance and fell forward onto the floor. His was home however was unable to get him up off the floor. This morning his cousin who is an EMT came over and assisted him into a recliner, then he called for an ambulance. Patient denies LOC or dizziness. Reports daily alcohol use, around 1.5 pints of vodka daily, last drink yesterday morning. He has been using a cane and walker and his mobility has gotten worse recently. He c/o abdominal pain at admission and was diffusely tender. CT scan abd/pelvis was obtained which was unrevealing however gallbladder was distended. ABD US showed echogenic sludge without gallbladder wall thickening or pericholecystic fluid however had a positive sonographic turcios sign and was admitted to the medical service for further treatment of the alcohol use disorder, possible acute cholecystitis. He was started on IV zosyn. No leukocytosis. Platelets 63. Total bilirubin was elevated to 3.6, downtrended to 2.7 this am. CBD normal in caliber on imaging. He is unsure if he feels better this morning. He reports having abdominal pain at his hernia site for years but denies having pain specifically in the RUQ. He denies fever, chills, dizziness, CP, SOB, nausea, vomiting, diarrhea. 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 Mother Chronic a-fib Sister Chronic a-fib Breast cancer Ovarian cancer <Lynnette Escalera PA-C - Last Filed: 07/27/24 12:03> Surgical History Surgical History: Surgical History (Updated 07/27/24 @ 11:57 by Lynnette Escalera PA-C) Hx of right inguinal hernia repair S/P cardiac cath Hx of colonoscopy History of esophagogastroduodenoscopy (EGD) History of back surgery <Lynnette Escalera PA-C - Last Filed: 07/27/24 12:03> Social History Social History: Social History Household Members: Significant Other Housing: Apartment Are you a primary career counselor to a significant other at home: No Do you presently have visiting nurse or other home services: No Alcohol intake: current Alcohol intake frequency: 3 or more drinks per day Alcohol type: hard liquor Comment: REFUSING BED ALARM Patient Tobacco Use Status: Current everyday Tobacco user Tobacco use type: Cigarette Cigarette Packs Per Day: 0.5 Cigarettes Per Day: 10.0 e-Cigarette/Vaping Use: Never Used Second Hand Smoke Exposure: Yes Advance Directives Date on File: 07/28/22 service: No Current occupational status: disabled Cognitive needs: No Hearing needs: No Vision needs: Yes <NAVI Ramirez Last Filed: 07/27/24 12:03> Meds Allergies/Adverse reactions: Allergies Allergy/AdvReac Type Severity Reaction Status Date / Time morphine Allergy Severe Anaphylaxis Verified 07/25/24 12:21 acetaminophen [From Tylenol] Allergy Intermediate Gastrointestinal Verified 07/25/24 12:21 Upset <Lynnette Escalera PA-C - Last Filed: 07/27/24 12:03> Active Medications: Current Medications Atorvastatin Calcium (Atorvastatin Calcium 20 Mg Tablet) 20 mg PO BEDTIME [facility] Last Admin: 07/26/24 21:10 Dose: 20 mg Bisacodyl (Bisacodyl 5 Mg Tablet.Dr) 10 mg PO BEDTIME [facility] Last Admin: 07/26/24 21:10 Dose: 10 mg Buprenorphine/Naloxone (Buprenorphine/Naloxone 8/2 Mg Tab.Subl) 1 tab SUBLINGUAL TID [facility] Last Admin: 07/27/24 08:33 Dose: 1 tab Calcium Carbonate (Calcium Carbonate 750 Mg Tab.Chew) 750 mg PO Q4H PRN PRN Reason: Heartburn Digoxin (Digoxin 0.125 Mg Tablet) 0.125 mg PO DAILY [facility]; Protocol Last Admin: 07/27/24 08:33 Dose: 0.125 mg Diltiazem HCl (Diltiazem Hcl Cd 300 Mg Cap.Er.24h) 300 mg PO DAILY [facility]; Protocol Last Admin: 07/26/24 08:42 Dose: 300 mg Fluticasone/Umeclidinium/Vilanterol (Fluticasone/Umeclidinium/Vilanterol 200/62.5/25 Blst.W.Dev) 1 puff INHALE DAILY [facility] Last Admin: 07/27/24 08:31 Dose: 1 puff Folic Acid (Folic Acid 1 Mg Tablet) 1 mg PO DAILY [facility] Last Admin: 07/27/24 08:34 Dose: 1 mg Piperacillin Sod/Tazobactam (Sod 3.375 gm/ Sodium Chloride) 50 mls @ 100 mls/hr IV Q6H [facility] Last Admin: 07/27/24 08:33 Dose: 100 mls/hr Magnesium Hydroxide (Milk Of Magnesia 30 Ml Oral.Susp) 30 ml PO DAILY PRN PRN Reason: Constipation Magnesium Oxide ([facility] 400 Mg Tablet) [facility] Last Admin: 07/27/24 08:34 Dose: 400 mg Metoprolol Tartrate (Metoprolol Tartrate 100 Mg Tablet) 100 mg PO BID [facility]; Protocol Last Admin: 07/27/24 08:33 Dose: 100 mg Non-Formulary Medication (Prucalopride [Motegrity]) 2 mg PO DAILY [facility] Pantoprazole Sodium (Pantoprazole Sodium 40 Mg/10 Ml Vial) 40 mg IVPUSH BID@0630,1630 [facility] Last Admin: 07/27/24 04:05 Dose: 40 mg Pharmacy Consult (Consult Rx Etoh Phenob Im/Po) 1 each MISCELLANE ONCE PRN; Protocol PRN Reason: Consult order Phenobarbital (Phenobarbital 30 Mg Tablet) 60 mg PO BID [facility] Stop: 07/28/24 09:01 Last Admin: 07/27/24 08:33 Dose: 60 mg Phenobarbital (Phenobarbital 30 Mg Tablet) 30 mg PO BID [facility] Stop: 07/30/24 09:01 Phenobarbital (Phenobarbital 30 Mg Tablet) 30 mg PO BEDTIME [facility] Stop: 07/31/24 21:01 Potassium Chloride (Potassium Chloride Er 20 Meq Tab.Er.Prt) 20 meq PO BID [facility] Last Admin: 07/27/24 08:33 Dose: 20 meq Sodium Chloride (0.9 % Sodium Chloride Flush 3 Ml Syringe) 3 ml IVFLUSH QSHIFT [facility] Last Admin: 07/27/24 08:34 Dose: 3 ml Thiamine HCl (Thiamine Hcl 100 Mg Tablet) 100 mg PO DAILY [facility] Last Admin: 07/27/24 08:33 Dose: 100 mg <Lynnette Escalera PA-C - Last Filed: 07/27/24 12:03> Home medications: Home Medications ?Medication ?Instructions ?Recorded ?Confirmed ?Last Taken ?Type buprenorphine 8 mg-naloxone 2 mg 1 tab sublingual TID 08/15/20 07/26/24 07/25/24 09:00 History sublingual tablet fluticasone fur. 200 mcg-umeclid 1 ea inhalation DAILY 07/24/22 07/26/24 07/25/24 09:00 History 62.5 mcg-vilant 25 mcg inhalat.powder (Trelegy Ellipta) digoxin 125 mcg (0.125 mg) tablet 125 mcg PO DAILY 07/26/24 07/26/24 07/25/24 09:00 History potassium chloride 20 mEq 20 meq PO DAILY 07/26/24 07/26/24 07/25/24 History tablet,extended release <Lynnette Escalera PA-C - Last Filed: 07/27/24 12:03> Physical Exam 2 Vital Signs: Vital Signs: Last Vital Signs Temp 97.9 F 07/27/24 08:00 Pulse 76 07/27/24 08:34 Resp 16 07/27/24 08:34 BP 104/58 L 07/27/24 08:00 Pulse Ox 93 07/27/24 08:00 O2 Del Method Nasal Cannula 07/27/24 08:00 O2 Flow Rate 1 07/27/24 08:00 BMI result Body Mass Index 21.9 <Lynnette NAVI Escalera [place] Last Filed: 07/27/24 12:03> Const: General: no acute distress and alert <Lynnette NAVI Escalera [place] Last Filed: 07/27/24 12:03> Nutritional Appearance: malnourished <Lynnette NAVI Escalera [place] Last Filed: 07/27/24 12:03> Resp: Effort & Inspection: normal respiratory effort and not labored < Lynnette Escalera PA-C [place] Last Filed: 07/27/24 12:03> GI: Other: mildly protuberant abdomen soft reducible umbilical hernia, mildly tender to palpation, no overyling skin changes moderate upper abdominal tenderness with increased RUQ tenderness and positive turcios sign <Lynnette Escalera PA-C [place] Last Filed: 07/27/24 12:03> Skin: General skin exam: jaundice <Lynnette NAVI Escalera [place] Last Filed: 07/27/24 12:03> Neuro: General: moves all extremities <Lynnette Escalera PA-C [place] Last Filed: 07/27/24 12:03> Results Labs Result diagrams: 07/27/24 06:21 07/27/24 06:21 <Lynnette Escalera PA-C [place] Last Filed: 07/27/24 12:03> Labs: Abnormal lab results 07/26/24 07/26/24 07/27/24 Range/Units 11:44 16:20 06:21 WBC 4.7 L (4.8-10.8) X10*3/uL RBC 2.26 L 2.26 L (4.60-5.80) X10*6/uL Hgb 8.6 L 8.5 L (14.0-18.0) g/dl Hct 24.9 L 24.6 L (42.0-52.0) % MCV 110.2 H 108.8 H (80.0-98.0) fL MCH 38.1 H 37.6 H (27.0-33.0) pg Plt Count 63 L 69 L (160-400) X10*3/uL Immature Gran % (Auto) 1.1 H 1.3 H (0.0-0.4) % Lymph % (Auto) 15.6 L (20-40) % [place] % (Auto) 13.6 H 16.5 H (2-11) % Lymph # (Auto) 0.9 L 1.1 L (1.2-4.9) X10*3/uL Abs Immat Gran (auto) 0.06 H 0.06 H (0.00-0.03) X10*3/uL Carbon Dioxide 31 H 30 H (22-29) mmol/L Anion Gap 10 L 9 L (12-20) BUN 8 L 7 L (9-16) mg/dL Creatinine 0.44 L 0.43 L (0.5-1.4) mg/dL Calcium 7.1 L 7.3 L (8.4-10.2) mg/dL Magnesium 1.1 L* 1.4 L* 1.3 L* (1.6-2.6) mg/dL TIBC 101 L (228-428) mcg/dL % Saturation 75 H (15-50) % Total Bilirubin 3.6 H 2.7 H (0.0-1.0) mg/dL AST 127 H 97 H (5-37) U/L Alkaline Phosphatase 391 H 342 H (39-117) U/L Total Protein 5.3 L 4.8 L (6.5-8.0) g/dL Albumin 2.3 L 2.1 L (3.5-5.0) g/dL Lipase 7 L (8-78) U/L Short CBC 07/26/24 07/27/24 Range/Units 11:44 06:21 WBC 5.4 4.7 L (4.8-10.8) X10*3/uL Hgb 8.6 L 8.5 L (14.0-18.0) g/dl Hct 24.9 L 24.6 L (42.0-52.0) % Plt Count 63 L 69 L (160-400) X10*3/uL BMP 07/26/24 07/27/24 11:44 06:21 Sodium 137 138 Potassium 3.6 3.4 Chloride 100 102 Carbon Dioxide 31 H 30 H BUN 8 L 7 L Creatinine 0.44 L 0.43 L Calcium 7.1 L 7.3 L Liver Function 07/26/24 07/27/24 Range/Units 11:44 06:21 Total Bilirubin 3.6 H 2.7 H (0.0-1.0) mg/dL AST 127 H 97 H (5-37) U/L ALT 31 26 (0-40) U/L Alkaline Phosphatase 391 H 342 H (39-117) U/L Albumin 2.3 L 2.1 L (3.5-5.0) g/dL Urine 07/25/24 Range/Units 14:08 Urine Color Dark Yellow Urine Appearance Clear Urine pH 7.0 (5.0-9.0) Ur Specific [place] 1.015 (1.005-1.025) Urine Protein Trace (Neg-Trace) mg/dL Urine Glucose (UA) Negative (Negative) mg/dL All other labs normal. <Lynnette Escalera PA-C - Last Filed: 07/27/24 12:03> Imaging Abdomen CT scan report/results: report reviewed and image reviewed <Lynnette Escalera PA-C - Last Filed: 07/27/24 12:03> Assessment and Plan (1) Acute cholecystitis: Status: Acute <Lynnette Escalera PA-C - Last Filed: 07/27/24 12:03> Complains mostly of umbilical pain - he says this is chronic his old hernia No fever Tender in the area of the mid abdomen in the right upper quadrant Otherwise benign exam CT scan reviewed - no significant inflammatory changes surrounding the gallbladder HIDA scan however suggests cholecystitis In view of acute medical issues, including elevated LFTs, EtOH use, would hold off on cholecystectomy for now IV antibiotics We will continue to follow for possible need for cholecystostomy tube <Roberto Del Toro MD - Last Filed: 07/27/24 14:59> 54 year old male with PMH significant for KS, COPD on home O2 2L, Afib/Aflutter, smoker, hyperlipidemia, alcohol use disorder, substance use disorder admitted after a fall for his alcohol use disorder, possible acute cholecystitis. ABD US showed echogenic sludge without gallbladder wall thickening or pericholecystic fluid however he had a positive sonographic turcios sign and GB distended on CT scan. HIDA scan was ordered and is pending- no GB filling on my review but await official read. He is tender in the RUQ on exam. He is on IV zosyn. At this point given his significant medical comorbidities and alcohol use, I would continue nonoperative treatment of the acute cholecystitis. If he has no improvement with supportive measures, would attempt cholecystostomy tube. He is high risk for surgery and would avoid cholecystectomy in this patient if possible. Cont to trend LFTs. Also has umbilical hernia which is soft and reducible. <Lynnette Escalera PA-C - Last Filed: 07/27/24 12:03> Procedures Date of Service Date of Service: 07/27/24 <Lynnette Escalera PA-C - Last Filed: 07/27/24 12:03> 07/27/24 <Roberto Del Toro MD - Last Filed: 07/27/24 14:59>
--- NOTE | 2024-07-27 11:51 | PC.NURSE ---
Patient came back from [facility], called pharmacy regarding Cardizem medication.
[2024-07-27] MEDS: Magnesium Sulfate/D5W 1 GM/100 ML PIGGYBACK IV (11:56)
[2024-07-27] MEDS: dilTIAZem HCL CD 180 MG CAP.ER.24H PO (12:14)
[2024-07-27] MEDS: dilTIAZem HCL CD 120 MG CAP.ER.DEG PO (12:14)
--- NOTE | 2024-07-27 16:19 | MHC.CM.PN ---
IMM 07/27/24, EMR REVIEWED, PT W/ETOH WITHDRAWAL/CHOLEYCYSTITIS, CM MET W/PT WHO REPORTS HE LIVES W/FAMILY, HAS A CANE HE USES PRN AND SHOWER CHAIR, NO HOME SERVICES AND GOAL FOR DC IS TO RETURN HOME. PCP AND HCP ON FILE IS CORRECT.
--- NOTE | 2024-07-27 16:43 | P.PNIM_ITS ---
Subjective Subjective Date of Service: 07/27/24 Interval History: anemia , hypomagnesemia Review of Systems Abdominal pain seems to be improving No fever or nausea or vomiting Physical Exam 2 Vital Signs: Vital Signs: Last Vital Signs Temp 98.2 F 07/27/24 15:47 Pulse 71 07/27/24 15:47 Resp 18 07/27/24 15:47 BP 110/72 07/27/24 15:47 Pulse Ox 95 07/27/24 15:47 O2 Del Method Room Air 07/27/24 15:47 O2 Flow Rate 1 07/27/24 11:50 BMI result Body Mass Index 21.9 Appearance: Alert.? Oriented X3.? cvs: rrr, [id number] , no murmur res: clear to auscultation ,no rhonchii or wheezing abd: no rebound or guarding , mild epigastric discomfort, bs present. ext pulses present , no cyanosis . neuro: axo3 , nonfocal. Objective Data Active Medications Atorvastatin Calcium (Atorvastatin Calcium 20 Mg Tablet) 20 mg PO BEDTIME [facility] Last Admin: 07/26/24 21:10 Dose: 20 mg Documented By: LOGAN Bisacodyl (Bisacodyl 5 Mg Tablet.Dr) 10 mg PO BEDTIME [facility] Last Admin: 07/26/24 21:10 Dose: 10 mg Documented By: LOGAN Buprenorphine/Naloxone (Buprenorphine/Naloxone 8/2 Mg Tab.Subl) 1 tab SUBLINGUAL TID [facility] Last Admin: 07/27/24 15:27 Dose: 1 tab Documented By: JULIO Calcium Carbonate (Calcium Carbonate 750 Mg Tab.Chew) 750 mg PO Q4H PRN PRN Reason: Heartburn Digoxin (Digoxin 0.125 Mg Tablet) 0.125 mg PO DAILY [facility]; Protocol Last Admin: 07/27/24 08:33 Dose: 0.125 mg Documented By: JULIO Diltiazem HCl (Diltiazem Hcl Cd 180 Mg Cap.Er.24h) 180 mg PO DAILY [facility]; Protocol Last Admin: 07/27/24 12:14 Dose: 180 mg Documented By: DEAN Diltiazem HCl (Diltiazem Hcl Cd 120 Mg Cap.Er.Deg) 120 mg PO DAILY [facility]; Protocol Last Admin: 07/27/24 12:14 Dose: 120 mg Documented By: DEAN Fluticasone/Umeclidinium/Vilanterol (Fluticasone/Umeclidinium/Vilanterol 200/62.5/25 Blst.W.Dev) 1 puff INHALE DAILY [facility] Last Admin: 07/27/24 08:31 Dose: 1 puff Documented By: TISH Folic Acid (Folic Acid 1 Mg Tablet) 1 mg PO DAILY [facility] Last Admin: 07/27/24 08:34 Dose: 1 mg Documented By: JULIO Piperacillin Sod/Tazobactam (Sod 3.375 gm/ Sodium Chloride) 50 mls @ 100 mls/hr IV Q6H [facility] Last Admin: 07/27/24 15:28 Dose: 100 mls/hr Documented By: JULIO Magnesium Hydroxide (Milk Of Magnesia 30 Ml Oral.Susp) 30 ml PO DAILY PRN PRN Reason: Constipation Magnesium Oxide ([facility] 400 Mg [facility]t) [facility] Last Admin: 07/27/24 15:28 Dose: 400 mg Documented By: JULIO Metoprolol Tartrate (Metoprolol Tartrate 100 Mg Tablet) 100 mg PO BID [facility]; Protocol Last Admin: 07/27/24 08:33 Dose: 100 mg Documented By: JULIO Non-Formulary Medication (Prucalopride [Motegrity]) 2 mg PO DAILY [facility] Pantoprazole Sodium (Pantoprazole Sodium 40 Mg/10 Ml Vial) 40 mg IVPUSH BID@0630,1630 [facility] Last Admin: 07/27/24 15:27 Dose: 40 mg Documented By: JULIO Pharmacy Consult (Consult Rx Etoh Phenob Im/Po) 1 each MISCELLANE ONCE PRN; Protocol PRN Reason: Consult order Phenobarbital (Phenobarbital 30 Mg Tablet) 60 mg PO BID [facility] Stop: 07/28/24 09:01 Last Admin: 07/27/24 08:33 Dose: 60 mg Documented By: JULIO Phenobarbital (Phenobarbital 30 Mg Tablet) 30 mg PO BID [facility] Stop: 07/30/24 09:01 Phenobarbital (Phenobarbital 30 Mg Tablet) 30 mg PO BEDTIME [facility] Stop: 07/31/24 21:01 Potassium Chloride (Potassium Chloride Er 20 Meq Tab.Er.Prt) 20 meq PO BID [facility] Last Admin: 07/27/24 08:33 Dose: 20 meq Documented By: JULIO Sodium Chloride (0.9 % Sodium Chloride Flush 3 Ml Syringe) 3 ml IVFLUSH QSHIFT [facility] Last Admin: 07/27/24 15:28 Dose: 3 ml Documented By: JULIO Thiamine HCl (Thiamine Hcl 100 Mg Tablet) 100 mg PO DAILY [facility] Last Admin: 07/27/24 08:33 Dose: 100 mg Documented By: JULIO Labs 07/27/24 06:21 07/27/24 06:21 Labs: Laboratory Results - last 24 hr 07/26/24 07/27/24 16:20 06:21 MCV 108.8 H MCH 37.6 H MCHC 34.6 RDW 14.4 Plt Count 69 L MPV 11.1 Immature Gran % (Auto) 1.3 H Neut % (Auto) 54.6 Lymph % (Auto) 23.1 [place] % (Auto) 16.5 H Eos % (Auto) 3.0 Baso % (Auto) 1.5 Lymph # (Auto) 1.1 L [place] # (Auto) 0.8 Eos # (Auto) 0.1 Baso # (Auto) 0.1 Abs Immat Gran (auto) 0.06 H Absolute Neuts (auto) 2.6 Absolute Nucleated RBC 0.000 Nucleated RBC % (auto) 0.0 Anion Gap 9 L Estim Creat Clear Calc 200.9 Estimated GFR > 60 Random Glucose 95 Calcium 7.3 L Magnesium 1.4 L* 1.3 L* Iron 76 TIBC 101 L % Saturation 75 H Unsat Iron Binding < 25 Total Bilirubin 2.7 H AST 97 H ALT 26 Alkaline Phosphatase 342 H Total Protein 4.8 L Albumin 2.1 L Blood Type O Negative Antibody Screen NEGATIVE Assessment and Plan (1) Acute cholecystitis: Status: Acute (2) Elevated LFTs: Status: Acute Plan 54-year-old male who presents with increased falls and alcohol use disorder. Alcohol Use Disorder -Phenobarbitol protocol -Thiamine, folic acid Cholecystitis -Hida scan possible acute cholecystitis Seen by surgery currently recommended conservative management with antibiotics,- Zosyn IV ABX Acute hypomagnesemia: Added IV and p.o.. OUD -continue buprenorphine Chronic Macrocytic hyperchromic anemia -h/h trending down, continue to monitor -iron studies -type and cross -Patient denies any melena or erica bleeding HLD -continue atorvastatin Thrombocytopenia -chronic likely due to AUD A Flutter -Eliquis on hold due to Thrombocytopenia -Monitor on Telemetry -Continue digoxin and Cardizem Hypomagnesemia -Patient received 4 grams -Recheck Mg levels tomorrow Hypocalciemia -Corrected calcium 8.1 Falls -PT evaluation Code Full VTE: compression, Contraindicated for medication at this time due to thryombocytopenia Ongoing need: Alcohol withdrawal, acute cholecystitis-need phenobarb protocol, IV antibiotics, acute hypomagnesemia: Need electrolyte monitoring also. Quality Stroke Does the patient have a stroke diagnosis?: No VTE Prior VTE?: No VTE Risk Level:: Medical - low VTE Device Contraindication: N/A - Device Ordered VTE Drug Contraindication: Treatment Not Indicated
--- NOTE | 2024-07-27 17:08 | HO.ADDICT_ITS ---
History of Present Illness Date of Service: 07/27/2024 Chief Complaint: alcohol withdrawals, cholecystitis Reason for Consult: AUD Sources of Information: patient interviewed and chart reviewed HPI Narrative: Patient is a 54 year old male with history of AUD, COPD, AFIB and frequent falls. Present[place] [facility] [place] at home --initially reporting that he was looking for ATS admission, however ended up requiring medical admission. Patient seen in room 471. He was sleeping upon arrival, and woke easily to voice. Reports he is very tired. Asking to meet tomorrow. Chart review shows that patient reported drinking more than a pint of vodka daily with last drink being prior to arrival in ED. ETOH level 211 He reported periods of abstaining from alcohol, however stated that after his NV, he began to drink again. Prescribed Buprenorphine via [facility] 8mg BID. CIWA scores have been 0,1 Labs reviewed Mg 1.5 Calcium 7.3 Review of Systems Constitutional: Reports as per HPI Diagnostics Vital Signs (24Hr): Vital Signs - 24 hr 07/26/24 20:00 07/27/24 00:00 07/27/24 04:00 Temperature 98.2 F 98.8 F 97.8 F Pulse Rate 66 72 67 Respiratory Rate 16 18 18 Blood Pressure 115/67 107/67 101/60 Pulse Oximetry 92 97 93 Oxygen Delivery Method Nasal Cannula Nasal Cannula Nasal Cannula Oxygen Flow Rate 1 1 1 07/27/24 08:00 07/27/24 08:34 07/27/24 11:50 Temperature 97.9 F 98.9 F Pulse Rate 76 76 77 Respiratory Rate 16 16 18 Blood Pressure 104/58 L 110/78 Pulse Oximetry 93 98 Oxygen Delivery Method Nasal Cannula Nasal Cannula Oxygen Flow Rate 1 1 07/27/24 15:47 Temperature 98.2 F Pulse Rate 71 Respiratory Rate 18 Blood Pressure 110/72 Pulse Oximetry 95 Oxygen Delivery Method Room Air Oxygen Flow Rate BMI result Body Mass Index 21.9 Labs 07/27/24 06:21 07/27/24 06:21 Labs: Laboratory Results - last 48 hr 07/25/24 07/25/24 07/26/24 13:03 18:35 09:29 WBC RBC Hgb Hct MCV MCH MCHC RDW Plt Count MPV Immature Gran % (Auto) Neut % (Auto) Lymph % (Auto) Glascock % (Auto) Eos % (Auto) Baso % (Auto) Lymph # (Auto) Glascock # (Auto) Eos # (Auto) Baso # (Auto) Abs Immat Gran (auto) Absolute Neuts (auto) Absolute Nucleated RBC Nucleated RBC % (auto) Hold Purple Top Sodium Potassium Chloride Carbon Dioxide Anion Gap BUN Creatinine Estim Creat Clear Calc Estimated GFR Random Glucose Calcium Magnesium Iron TIBC % Saturation Unsat Iron Binding Total Bilirubin Direct Bilirubin 2.0 H AST ALT Alkaline Phosphatase Troponin I High Sens 9.4 Total Protein Albumin Lipase Hold Yellow Top Influenza Type A (PCR) NEGATIVE Influenza Type B (PCR) NEGATIVE RSV RNA Qual (PCR) NEGATIVE SARS-CoV-2 RNA (RT-PCR) NEGATIVE Blood Type Antibody Screen 07/26/24 07/26/24 07/27/24 11:44 16:20 06:21 WBC 5.4 4.7 L RBC 2.26 L 2.26 L Hgb 8.6 L 8.5 L Hct 24.9 L 24.6 L MCV 110.2 H 108.8 H MCH 38.1 H 37.6 H MCHC 34.5 34.6 RDW 14.4 14.4 Plt Count 63 L 69 L MPV 10.7 11.1 Immature Gran % (Auto) 1.1 H 1.3 H Neut % (Auto) 67.9 54.6 Lymph % (Auto) 15.6 L 23.1 Glascock % (Auto) 13.6 H 16.5 H Eos % (Auto) 1.1 3.0 Baso % (Auto) 0.7 1.5 Lymph # (Auto) 0.9 L 1.1 L Glascock # (Auto) 0.7 0.8 Eos # (Auto) 0.1 0.1 Baso # (Auto) 0.0 0.1 Abs Immat Gran (auto) 0.06 H 0.06 H Absolute Neuts (auto) 3.7 2.6 Absolute Nucleated RBC 0.000 0.000 Nucleated RBC % (auto) 0.0 0.0 Hold Purple Top SEE NOTE Sodium 137 138 Potassium 3.6 3.4 Chloride 100 102 Carbon Dioxide 31 H 30 H Anion Gap 10 L 9 L BUN 8 L 7 L Creatinine 0.44 L 0.43 L Estim Creat Clear Calc 191.3 200.9 Estimated GFR > 60 > 60 Random Glucose 90 95 Calcium 7.1 L 7.3 L Magnesium 1.1 L* 1.4 L* 1.3 L* Iron 76 TIBC 101 L % Saturation 75 H Unsat Iron Binding < 25 Total Bilirubin 3.6 H 2.7 H Direct Bilirubin AST 127 H 97 H ALT 31 26 Alkaline Phosphatase 391 H 342 H Troponin I High Sens Total Protein 5.3 L 4.8 L Albumin 2.3 L 2.1 L Lipase 7 L Hold Yellow Top See Note Influenza Type A (PCR) Influenza Type B (PCR) RSV RNA Qual (PCR) SARS-CoV-2 RNA (RT-PCR) Blood Type O Negative Antibody Screen NEGATIVE Imaging Radiology Impressions: ITS Impressions Head CT 07/25/24 12:40 IMPRESSION: No acute intracranial abnormality. No fracture evident. Electronically signed by: Dario Childress MD 07/25/2024 02:50 PM EDT RP Abdomen/Pelvis CT 07/25/24 13:31 IMPRESSION: 1. No evidence of traumatic injury to the abdomen or pelvis. 2. Marked hepatic steatosis. Electronically signed by: Uzair Butler MD 07/25/2024 02:50 PM EDT RP Cervical Spine CT 07/25/24 13:47 IMPRESSION: 1. No CT evidence of acute cervical spine fracture or injury. 2. Degenerative spondylosis and mild right convex scoliosis. 3. Paraseptal emphysematous change in the lung apices. Electronically signed by: Dario Childress MD 07/25/2024 02:57 PM EDT RP Abdomen Ultrasound 07/25/24 15:53 IMPRESSION: 1. Gallbladder demonstrating echogenic layering sludge with a positive sonographic Haq's sign. No significant wall thickening (borderline at 3 mm) and no definite pericholecystic fluid collection. Cannot exclude acute cholecystitis. 2. No biliary dilatation. Electronically signed by: Dario Childress MD 07/25/2024 04:15 PM EDT RP Chest X-Ray 07/26/24 08:31 IMPRESSION: No active pulmonary disease. Electronically signed by: Dario Childress MD 07/26/2024 08:51 AM EDT RP Hepatobiliary Scan Nuclear Medicine 07/27/24 09:25 IMPRESSION: Findings consistent with cystic duct obstruction and acute cholecystitis. Electronically signed by: Uzair Butler MD 07/27/2024 12:58 PM EDT RP Mental Status Exam Mental Status Exam Level of Consciousness: Awake and Appropriate Patient Behavior: Appropriate Affect Description: Flat Speech Pattern: Clear Judgement: Good Medications Medications Current Medications Atorvastatin Calcium (Atorvastatin Calcium 20 Mg Tablet) 20 mg PO BEDTIME [facility] Last Admin: 07/26/24 21:10 Dose: 20 mg Bisacodyl (Bisacodyl 5 Mg Tablet.Dr) 10 mg PO BEDTIME [facility] Last Admin: 07/26/24 21:10 Dose: 10 mg Buprenorphine/Naloxone (Buprenorphine/Naloxone 8/2 Mg Tab.Subl) 1 tab SUBLINGUAL TID [facility] Last Admin: 07/27/24 15:27 Dose: 1 tab Calcium Carbonate (Calcium Carbonate 750 Mg Tab.Chew) 750 mg PO Q4H PRN PRN Reason: Heartburn Digoxin (Digoxin 0.125 Mg Tablet) 0.125 mg PO DAILY [facility]; Protocol Last Admin: 07/27/24 08:33 Dose: 0.125 mg Diltiazem HCl (Diltiazem Hcl Cd 180 Mg Cap.Er.24h) 180 mg PO DAILY [facility]; Protocol Last Admin: 07/27/24 12:14 Dose: 180 mg Diltiazem HCl (Diltiazem Hcl Cd 120 Mg Cap.Er.Deg) 120 mg PO DAILY [facility]; Protocol Last Admin: 07/27/24 12:14 Dose: 120 mg Fluticasone/Umeclidinium/Vilanterol (Fluticasone/Umeclidinium/Vilanterol 200/62.5/25 Blst.W.Dev) 1 puff INHALE DAILY [facility] Last Admin: 07/27/24 08:31 Dose: 1 puff Folic Acid (Folic Acid 1 Mg Tablet) 1 mg PO DAILY [facility] Last Admin: 07/27/24 08:34 Dose: 1 mg Piperacillin Sod/Tazobactam (Sod 3.375 gm/ Sodium Chloride) 50 mls @ 100 mls/hr IV Q6H [facility] Last Infusion: 07/27/24 16:46 Dose: Infused Magnesium Hydroxide (Milk Of Magnesia 30 Ml Oral.Susp) 30 ml PO DAILY PRN PRN Reason: Constipation Magnesium Oxide (Magnesium Oxide 400 Mg Tablet) 800 mg PO BIDPC [facility] Metoprolol Tartrate (Metoprolol Tartrate 100 Mg Tablet) 100 mg PO BID [facility]; Protocol Last Admin: 07/27/24 08:33 Dose: 100 mg Non-Formulary Medication (Prucalopride [Motegrity]) 2 mg PO DAILY [facility] Pantoprazole Sodium (Pantoprazole Sodium 40 Mg/10 Ml Vial) 40 mg IVPUSH BID@0630,1630 [facility] Last Admin: 07/27/24 15:27 Dose: 40 mg Pharmacy Consult (Consult Rx Etoh Phenob Im/Po) 1 each MISCELLANE ONCE PRN; Protocol PRN Reason: Consult order Phenobarbital (Phenobarbital 30 Mg Tablet) 60 mg PO BID [facility] Stop: 07/28/24 09:01 Last Admin: 07/27/24 08:33 Dose: 60 mg Phenobarbital (Phenobarbital 30 Mg Tablet) 30 mg PO BID [facility] Stop: 07/30/24 09:01 Phenobarbital (Phenobarbital 30 Mg Tablet) 30 mg PO BEDTIME [facility] Stop: 07/31/24 21:01 Potassium Chloride (Potassium Chloride Er 20 Meq Tab.Er.Prt) 20 meq PO BID [facility] Last Admin: 07/27/24 08:33 Dose: 20 meq Sodium Chloride (0.9 % Sodium Chloride Flush 3 Ml Syringe) 3 ml IVFLUSH QSHIFT [facility] Last Admin: 07/27/24 15:28 Dose: 3 ml Thiamine HCl (Thiamine Hcl 100 Mg Tablet) 100 mg PO DAILY [facility] Last Admin: 07/27/24 08:33 Dose: 100 mg Allergies Allergies Allergy/AdvReac Type Severity Reaction Status Date / Time morphine Allergy Severe Anaphylaxis Verified 07/25/24 12:21 acetaminophen [From Tylenol] Allergy Intermediate Gastrointestinal Verified 07/25/24 12:21 Upset Assessment & Plan Assessment & Plan (1) Alcohol use disorder: Status: Acute Code(s): F10.90 - Alcohol use, unspecified, uncomplicated Assessment and Plan: * withdrawal managed with phenobarbital * information on DANNIE and other recovery resources left by bedside, patient agreeable to follow up in AM Total time managing care of this patient today __30__ minutes. 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 Mother Chronic a-fib Sister Chronic a-fib Breast cancer Ovarian cancer Surgical History Surgical History (Updated 07/27/24 @ 11:57 by Lynnette Escalera PA-C) Hx of right inguinal hernia repair S/P cardiac cath Hx of colonoscopy History of esophagogastroduodenoscopy (EGD) History of back surgery Social History Social History Household Members: Significant Other Housing: Apartment Are you a primary lawn care technician to a significant other at home: No Do you presently have visiting nurse or other home services: No Alcohol intake: current Alcohol intake frequency: 3 or more drinks per day Alcohol type: hard liquor Comment: REFUSING BED ALARM Patient Tobacco Use Status: Current everyday Tobacco user Tobacco use type: Cigarette Cigarette Packs Per Day: 0.5 Cigarettes Per Day: 10.0 e-Cigarette/Vaping Use: Never Used Second Hand Smoke Exposure: Yes Advance Directives Date on File: 07/28/22 service: No Current occupational status: disabled Cognitive needs: No Hearing needs: No Vision needs: Yes
[2024-07-27] MEDS: Atorvastatin Calcium 20 MG TABLET PO (21:55)
[2024-07-28] VITALS (9 sets, daily range): BP systolic 96–118; BP diastolic 56–74; PULSE 61–70; RESP 16–20; TEMP 36–37; O2SAT 94–100
[2024-07-28] MEDS: Piperacillin Sodium/Tazobactam 3.375 GM in 0.9 % Sodium Chloride 50 ML IV ×4 (05:31→21:51)
[2024-07-28] MEDS: Pantoprazole Sodium 40 MG/10 ML VIAL IVPUSH ×2 (05:31→17:13)
--- NOTE | 2024-07-28 08:15 | P.PNGS_ITS ---
Subjective Subjective Date of Service: 07/28/24 <Lynnette Escalera PA-C - Last Filed: 07/28/24 08:21> 07/28/24 <Roberto Del Toro MD - Last Filed: 07/28/24 13:54> Interval history: Feels improved this morning. Denies any abdominal pain at rest. Hungry and asking for solid food. <Lynnette Escalera PA-C - Last Filed: 07/28/24 08:21> Physical Exam 2 Vital Signs: Vital Signs: Last Vital Signs Temp 97.9 F 07/28/24 07:37 Pulse 66 07/28/24 07:37 Resp 20 07/28/24 07:37 BP 97/62 07/28/24 07:37 Pulse Ox 94 07/28/24 07:37 O2 Del Method Nasal Cannula 07/28/24 07:37 O2 Flow Rate 1 07/28/24 07:37 BMI result Body Mass Index 21.9 <Lynnette Escalera PA-C - Last Filed: 07/28/24 08:21> Const: General: comfortable, no acute distress and alert <Lynnette Escalera PA-C - Last Filed: 07/28/24 08:21> Resp: Effort & Inspection: normal respiratory effort <NAVI Ramirez Last Filed: 07/28/24 08:21> GI: Other: RUQ tenderness improved, mild residual umbilical hernia remains soft and reducible <Lynnette Escalera PA-C - Last Filed: 07/28/24 08:21> Palpation (GI): Soft to palpation, no guarding and not rigid <Lynnette Escalera PA-C - Last Filed: 07/28/24 08:21> Percussion: Yes normal to percussion <NAVI Ramirez Last Filed: 07/28/24 08:21> Skin: General skin exam: jaundice <NAVI Ramirez Last Filed: 07/28/24 08:21> Neuro: General: moves all extremities <NAVI Ramirez Last Filed: 07/28/24 08:21> Objective Data Active Medications Atorvastatin Calcium (Atorvastatin Calcium 20 Mg Tablet) 20 mg PO BEDTIME [facility] Last Admin: 07/27/24 21:55 Dose: 20 mg Documented By: JORGE Bisacodyl (Bisacodyl 5 Mg Tablet.Dr) 10 mg PO BEDTIME [facility]S [facility]CLUDE 234 BEDS AT [facility] Last Admin: 07/27/24 21:55 Dose: Not Given Documented By: JORGE Non-Admin Reason: Patient Refused Buprenorphine/Naloxone (Buprenorphine/Naloxone 8/2 Mg Tab.Subl) 1 tab SUBLINGUAL TID COUNTS INCLUDE 234 BEDS AT THE [facility] Last Admin: 07/27/24 21:55 Dose: 1 tab Documented By: JORGE Calcium Carbonate (Calcium Carbonate 750 Mg Tab.Chew) 750 mg PO Q4H PRN PRN Reason: Heartburn Digoxin (Digoxin 0.125 Mg Tablet) 0.125 mg PO DAILY [facility]S [facility]CLUDE 234 BEDS AT [facility]; Protocol Last Admin: 07/27/24 08:33 Dose: 0.125 mg Documented By: JULIO Diltiazem HCl (Diltiazem Hcl Cd 180 Mg Cap.Er.24h) 180 mg PO DAILY [facility]S [facility]CLUDE 234 BEDS AT [facility]; Protocol Last Admin: 07/27/24 12:14 Dose: 180 mg Documented By: DEAN Diltiazem HCl (Diltiazem Hcl Cd 120 Mg Cap.Er.Deg) 120 mg PO DAILY [facility]CLUDE 234 BEDS AT [facility]; Protocol Last Admin: 07/27/24 12:14 Dose: 120 mg Documented By: DEAN Fluticasone/Umeclidinium/Vilanterol (Fluticasone/Umeclidinium/Vilanterol 200/62.5/25 Blst.W.Dev) 1 puff INHALE DAILY [facility] 234 BEDS AT [facility] Last Admin: 07/27/24 08:31 Dose: 1 puff Documented By: TISH Folic Acid (Folic Acid 1 Mg Tablet) 1 mg PO DAILY [facility]CLUDE 234 BEDS AT [facility] Last Admin: 07/27/24 08:34 Dose: 1 mg Documented By: JULIO Piperacillin Sod/Tazobactam (Sod 3.375 gm/ Sodium Chloride) 50 mls @ 100 mls/hr IV Q6H [facility]S INCLUDE 234 BEDS AT [facility] Last Infusion: 07/28/24 06:03 Dose: Infused Documented By: JORGE Magnesium Hydroxide (Milk Of Magnesia 30 Ml Oral.Susp) 30 ml PO DAILY PRN PRN Reason: Constipation Magnesium Oxide (Magnesium Oxide 400 Mg Tablet) 800 mg PO BIDPC COUNTS INCLUDE 234 BEDS AT [facility] Last Admin: 07/27/24 17:15 Dose: Not Given Documented By: JULIO Non-Admin Reason: Physician Approved Metoprolol Tartrate (Metoprolol Tartrate 100 Mg Tablet) 100 mg PO BID [facility] 234 BEDS AT [facility]; Protocol Last Admin: 07/27/24 21:54 Dose: 100 mg Documented By: JORGE Non-Formulary Medication (Prucalopride [Motegrity]) 2 mg PO DAILY [facility]CLUDE 234 BEDS AT [facility] Pantoprazole Sodium (Pantoprazole Sodium 40 Mg/10 Ml Vial) 40 mg IVPUSH BID@0630,1630 COUNTS [facility]CLUDE 234 BEDS AT [facility] Last Admin: 07/28/24 05:31 Dose: 40 mg Documented By: JORGE Pharmacy Consult (Consult Rx Etoh Phenob Im/Po) 1 each MISCELLANE ONCE PRN; Protocol PRN Reason: Consult order Phenobarbital (Phenobarbital 30 Mg Tablet) 60 mg PO BID [facility]CLUDE 234 BEDS AT [facility] Stop: 07/28/24 09:01 Last Admin: 07/27/24 21:54 Dose: 60 mg Documented By: JORGE Phenobarbital (Phenobarbital 30 Mg Tablet) 30 mg PO BID [facility]CLUDE 234 BEDS AT [facility] Stop: 07/30/24 09:01 Phenobarbital (Phenobarbital 30 Mg Tablet) 30 mg PO BEDTIME [facility]S [facility]CLUDE 234 BEDS AT [facility] Stop: 07/31/24 21:01 Potassium Chloride (Potassium Chloride Er 20 Meq Tab.Er.Prt) 20 meq PO BID [facility]CLUDE 234 BEDS AT [facility] Last Admin: 07/27/24 21:55 Dose: 20 meq Documented By: JORGE Sodium Chloride (0.9 % Sodium Chloride Flush 3 Ml Syringe) 3 ml IVFLUSH QSHIFT COUNTS INCLUDE 234 BEDS AT [facility] Last Admin: 07/27/24 21:55 Dose: 3 ml Documented By: JORGE Thiamine HCl (Thiamine Hcl 100 Mg Tablet) 100 mg PO DAILY [facility]CLUDE 234 BEDS AT [facility] Last Admin: 07/27/24 08:33 Dose: 100 mg Documented By: JULIO <Lynnette Escalera PA-C - Last Filed: 07/28/24 08:21> Labs CBC & Chem 7: 07/28/24 09:00 07/28/24 06:53 <Lynnette Escalera PA-C - Last Filed: 07/28/24 08:21> Labs: Laboratory Results - last 24 hr 07/27/24 07/28/24 06:21 06:53 Hold Purple Top SEE NOTE Magnesium 1.3 L* <Lynnette Escalera PA-C - Last Filed: 07/28/24 08:21> Procedures Date of Service Date of Service: 07/28/24 <Lynnette Escalera PA-C - Last Filed: 07/28/24 08:21> 07/28/24 <Roberto Del Toro MD - Last Filed: 07/28/24 13:54> Progress Note: A&P Assessment and plan (1) Acute cholecystitis: Status: Acute <Lynnette Escalera PA-C - Last Filed: 07/28/24 08:21> Assessment and Plan: He is better this morning He says he still has some pain but this is much improved on abdomen Hungry and asking for food Abdomen is soft, benign, mildly tender We will continue with IV antibiotics Other medical issues Seen and examined independently <Roberto Del Toro MD - Last Filed: 07/28/24 13:54> Assessment and Plan: Admitted for fall, alcohol abuse and found to have acute cholecystitis, HIDA shows nonvisualization of GB. He feels improved this morning and is less tender in the RUQ on exam, hernia remains soft and reducible. Continue nonoperative measures with IV zosyn. Can advance diet as tolerated. Repeat LFTs pending. <Lynnette Escalera PA-C - Last Filed: 07/28/24 08:21> Time Spent With Patient Time: Total time managing care of this patient today ____ minutes. <Lynnette Escalera PA-C - Last Filed: 07/28/24 08:21> Quality Stroke Does the patient have a stroke diagnosis?: No <Lynnette Escalera PA-C - Last Filed: 07/28/24 08:21> VTE Prior VTE?: No <Lynnette Escalera PA-C - Last Filed: 07/28/24 08:21> VTE Risk Level:: Medical - low <Lynnette Escalera PA-C - Last Filed: 07/28/24 08:21> VTE Device Contraindication: N/A - Device Ordered <Lynnette Escalera PA-C - Last Filed: 07/28/24 08:21> VTE Drug Contraindication: Treatment Not Indicated <Lynnette Escalera PA-C - Last Filed: 07/28/24 08:21>
[2024-07-28 08:25] LABS: Alanine Aminotransferase 27 U/L (0-40); Alkaline Phosphatase 334 U/L (39-117); Anion Gap 10 (12-20); Aspartate Amino Transferase 88 U/L (5-37); Bilirubin Total 2.4 mg/dL (0.0-1.0); Blood Urea Nitrogen 6 mg/dL (9-16); Calcium 7.3 mg/dL (8.4-10.2); Carbon Dioxide 28 mmol/L (22-29); Chloride 102 mmol/L (96-108); Creatinine Clr Calc Pharmacy 210.7; Estimated Glomerular Filt Rate > 60; Glucose Random 77 mg/dL (60-115); Potassium 3.7 mmol/L (3.3-5.1); Sodium 136 mmol/L (135-145); Total Protein 4.9 g/dL (6.5-8.0)
[2024-07-28 08:33] LABS: Magnesium 1.2 mg/dL (1.6-2.6)
[2024-07-28] MEDS: Magnesium Sulfate/H2O 2 GM/50 ML PIGGYBACK IV (09:12)
[2024-07-28] MEDS: Buprenorphine/Naloxone 8/2 mg TAB.SUBL 1 TAB SUBLINGUAL ×3 (09:13→21:47)
[2024-07-28] MEDS: Magnesium Oxide 400 MG TABLET 800 MG PO ×2 (09:13→17:14)
[2024-07-28] MEDS: Digoxin 0.125 MG TABLET PO (09:13)
[2024-07-28] MEDS: Potassium Chloride ER 20 MEQ TAB.ER.PRT PO ×2 (09:13→21:47)
[2024-07-28] MEDS: PHENobarbitaL 30 MG TABLET 60 MG PO (09:13)
[2024-07-28] MEDS: Thiamine HCL 100 MG TABLET PO (09:14)
[2024-07-28] MEDS: 0.9 % Sodium Chloride Flush 3 ML SYRINGE IVFLUSH ×3 (09:14→21:53)
[2024-07-28] MEDS: dilTIAZem HCL CD 180 MG CAP.ER.24H PO (09:14)
[2024-07-28] MEDS: dilTIAZem HCL CD 120 MG CAP.ER.DEG PO (09:14)
[2024-07-28] MEDS: Folic Acid 1 MG TABLET PO (09:14)
[2024-07-28] MEDS: Metoprolol Tartrate 100 MG TABLET PO ×2 (09:14→21:47)
[2024-07-28 09:20] LABS: Hematocrit 29.5 % (42.0-52.0); Hemoglobin 9.9 g/dl (14.0-18.0); Mean Corpuscular HGB Conc 33.6 g/dl (31.0-36.0); Mean Corpuscular Hemoglobin 37.2 pg (27.0-33.0); Mean Platelet Volume 11.6 fL (9.4-12.4); Red Blood Count 2.66 X10*6/uL (4.60-5.80); Red Cell Distribution Width 14.3 % (11.0-16.0)
[2024-07-28 09:22] LABS: Mean Corpuscular Volume 110.9 fL (80.0-98.0); Platelet Count 98 X10*3/uL (160-400)
[2024-07-28 09:58] LABS: Folate 5.2 ng/mL (> or = 4.0); Vitamin B12 1561 pg/mL (200-900)
[2024-07-28 10:23] LABS: Ferritin 2176 ng/mL (20-250)
[2024-07-28] MEDS: Fluticasone/Umeclidinium/Vilanterol 200/62.5/25 BLST.W.DEV 1 PUFF INHALE (11:33)
--- NOTE | 2024-07-28 14:09 | MHC.CM.PN ---
EMR REVIEWED, PT W/ETOH/CHOLEYCYSTITIS, HIDA EXAM ON 07/27, PT W/CRITICALLY LOW MAGNESIUM 1.2 W/IV REPLACEMENT, PER HOSPITALIST NO PLAN FOR DC AT THIS TIME, P.T. REC'S STR, BROADREF PLACED, CM WILL CONT TO FOLLWO DC NEEDS.
--- NOTE | 2024-07-28 15:31 | PM.GICN ---
History of Present Illness Data of Consult Service Date: 07/28/24 Requesting physician: Mat Santo Primary Care Provider: Katie Collier MD HPI Reason for consult: anemia , gastritis 54 YM with hx of SC, COPD on home O2 2L, Afib/Aflutter, smoker, HLD, AUD, DAREK, AGUSTÍN, Falls, and umbilical hernia, admitted to [facility] on 07/26/24 due to a recent fall. Patient denies LOC or dizziness. GI consulted for evaluation of anemia and gastritis Pt reported stabbing abdominal pain when he touched his abdomen. Pt states he feels pain mostly around the hernia and pain has improved and is not as bad now compared to when he came in. He also complains of decreased appetite and wt loss of 30-40 lbs over the past 6 months. He denies heartburn, dysphagia, melena, hematochezia, fever, chills, dizziness, CP, SOB, nausea, vomiting, diarrhea, or blood in stools. 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 Nikko reports that he uses a cane and walker and his mobility has gotten worse recently. Pt requested help with alcohol detox. Workup in the ER: CT of head was negative for a bleed or fracture Abdomen CT no evidence of traumatic injury to the abdominal or pelvic area. Marked hepatic steatosis Cervical Spine CT no acute cervical spine fracture or injury. Degenerative spondylosis and mild right convex scoliosis. Paraseptal emphysematous change in the lung apices. US of Abdomen 1. Gallbladder demonstrating echogenic layering sludge with a positive sonographic Haq's sign. No significant wall thickening (borderline at 3 mm) and no definite pericholecystic fluid collection. Cannot exclude acute cholecystitis.2. No biliary dilatation. Labs on admission showed RBC 2.26, hemoglobin 8.6, hematocrit 24.9, platelets 63, magnesium 1.1, ALT 31, AST 127, alkaline phosphatase 391, bilirubin 3.6 albumin 2.3, lipase 7, calcium 7.1, vitamin B12 > 1500 Toxicology was positive for buprenorphine Flu a, flu B, RSV, SARS COVID 2 all negative 07/25/[address] SCAN SHOWED: 1. No evidence of traumatic injury to the abdomen or pelvis. 2. Marked hepatic steatosis. PAST GI HISTORY BY REVIEW OF MEDICAL RECORDS: 05/2022 EGD AND COLONOSCOPY ARE PERFORMED BY DR. BAUER: Impression and Post Procedure Diagnosis: Endoscopy Findings: mild esophagitis gastritis mild duodenitis lax LES Colonoscopy Findings: polyp internal hemorrhoids redundant colon Plan: Await Pathology results Repeat Colonoscopy in 3 years due to fair left sided prep or earlier if clinically indicated High fiber diet leaflet avoid straining at stool, epsom salts and sitz bath, anusol supps or cream check compliance with PPI and timing, nsaid hx avoid senna for constipation, cont with motegrity BIOPSIES SHOWED: A. Duodenum, biopsy: Duodenal mucosa with predominantly preserved villi and focal mild features suggesting chronic/non-specific duodenitis. B. Stomach, biopsy: Reactive gastropathy; negative for H pylori, intestinal metaplasia and dysplasia. C. Esophagogastric junction, biopsy: Squamocolumnar mucosa with mild chronic inflammation and focal intestinal metaplasia; negative for dysplasia (see comment). D. Colon, ascending, polyp: Tubular adenoma; negative for high-grade dysplasia and carcinoma. E. Colon, rectal polyp: Hyperplastic polyp. Review of Systems Review of Systems: Yes all other systems are reviewed and are negative [facility] Past Medical History Medical History (Updated 07/27/24 @ 12:02 by Lynnette Escalera PA-C) Substance abuse in family Back pain Constipation Bipolar 1 disorder SOB (shortness of breath) Afib Myocardial infarction Tubular adenoma Tariq's esophagus determined by biopsy GERD (gastroesophageal reflux disease) Chronic idiopathic constipation Hx of opioid abuse Obesity Hyperlipidemia Asthma Peripheral neuropathy Lower back pain Family History Family History Father No problems noted. Mother Chronic a-fib Sister Chronic a-fib Breast cancer Ovarian cancer Surgical History Surgical History (Updated 07/27/24 @ 11:57 by Lynnette Escalera PA-C) Hx of right inguinal hernia repair S/P cardiac cath Hx of colonoscopy History of esophagogastroduodenoscopy (EGD) History of back surgery Social History Social History Household Members: Significant Other Housing: Apartment Are you a primary lead caregiver to a significant other at home: No Do you presently have visiting nurse or other home services: No Alcohol intake: current Alcohol intake frequency: 3 or more drinks per day Alcohol type: hard liquor Comment: REFUSING BED ALARM Patient Tobacco Use Status: Current everyday Tobacco user Tobacco use type: Cigarette Cigarette Packs Per Day: 0.5 Cigarettes Per Day: 10.0 e-Cigarette/Vaping Use: Never Used Second Hand Smoke Exposure: Yes Advance Directives Date on File: 07/28/22 service: No Current occupational status: disabled Cognitive needs: No Hearing needs: No Vision needs: Yes Meds Allergies Allergy/AdvReac Type Severity Reaction Status Date / Time morphine Allergy Severe Anaphylaxis Verified 07/25/24 12:21 acetaminophen [From Tylenol] Allergy Intermediate Gastrointestinal Verified 07/25/24 12:21 Upset Active Medications: Current Medications Atorvastatin Calcium (Atorvastatin Calcium 20 Mg Tablet) 20 mg PO BEDTIME [facility] Last Admin: 07/27/24 21:55 Dose: 20 mg Bisacodyl (Bisacodyl 5 Mg Tablet.Dr) 10 mg PO BEDTIME [facility] Last Admin: 07/27/24 21:55 Dose: Not Given Buprenorphine/Naloxone (Buprenorphine/Naloxone 8/2 Mg Tab.Subl) 1 tab SUBLINGUAL TID [facility] Last Admin: 07/28/24 09:13 Dose: 1 tab Calcium Carbonate (Calcium Carbonate 750 Mg Tab.Chew) 750 mg PO Q4H PRN PRN Reason: Heartburn Digoxin (Digoxin 0.125 Mg Tablet) 0.125 mg PO DAILY [facility]; Protocol Last Admin: 07/28/24 09:13 Dose: 0.125 mg Diltiazem HCl (Diltiazem Hcl Cd 180 Mg Cap.Er.24h) 180 mg PO DAILY [facility]; Protocol Last Admin: 07/28/24 09:14 Dose: 180 mg Diltiazem HCl (Diltiazem Hcl Cd 120 Mg Cap.Er.Deg) 120 mg PO DAILY [facility]; Protocol Last Admin: 07/28/24 09:14 Dose: 120 mg Fluticasone/Umeclidinium/Vilanterol (Fluticasone/Umeclidinium/Vilanterol 200/62.5/25 Blst.W.Dev) 1 puff INHALE DAILY [facility] Last Admin: 07/28/24 11:33 Dose: 1 puff Folic Acid (Folic Acid 1 Mg Tablet) 1 mg PO DAILY [facility] Last Admin: 07/28/24 09:14 Dose: 1 mg Piperacillin Sod/Tazobactam (Sod 3.375 gm/ Sodium Chloride) 50 mls @ 100 mls/hr IV Q6H [facility] Last Infusion: 07/28/24 09:56 Dose: Infused Magnesium Hydroxide (Milk Of Magnesia 30 Ml Oral.Susp) 30 ml PO DAILY PRN PRN Reason: Constipation Magnesium Oxide (Magnesium Oxide 400 Mg Tablet) 800 mg PO BIDPC [facility] Last Admin: 07/28/24 09:13 Dose: 800 mg Metoprolol Tartrate (Metoprolol Tartrate 100 Mg Tablet) 100 mg PO BID [facility]; Protocol Last Admin: 07/28/24 09:14 Dose: 100 mg Non-Formulary Medication (Prucalopride [Motegrity]) 2 mg PO DAILY [facility] Pantoprazole Sodium (Pantoprazole Sodium 40 Mg/10 Ml Vial) 40 mg IVPUSH BID@0630,1630 [facility] Last Admin: 07/28/24 05:31 Dose: 40 mg Pharmacy Consult (Consult Rx Etoh Phenob Im/Po) 1 each MISCELLANE ONCE PRN; Protocol PRN Reason: Consult order Phenobarbital (Phenobarbital 30 Mg Tablet) 30 mg PO BID [facility] Stop: 07/30/24 09:01 Phenobarbital (Phenobarbital 30 Mg Tablet) 30 mg PO BEDTIME [facility] Stop: 07/31/24 21:01 Potassium Chloride (Potassium Chloride Er 20 Meq Tab.Er.Prt) 20 meq PO BID [facility] Last Admin: 07/28/24 09:13 Dose: 20 meq Sodium Chloride (0.9 % Sodium Chloride Flush 3 Ml Syringe) 3 ml IVFLUSH QSHIFT [facility] Last Admin: 07/28/24 09:14 Dose: 3 ml Thiamine HCl (Thiamine Hcl 100 Mg Tablet) 100 mg PO DAILY [facility] Last Admin: 07/28/24 09:14 Dose: 100 mg Home Medications ?Medication ?Instructions ?Recorded ?Confirmed ?Last Taken ?Type buprenorphine 8 mg-naloxone 2 mg 1 tab sublingual TID 08/15/20 07/26/24 07/25/24 09:00 History sublingual tablet fluticasone fur. 200 mcg-umeclid 1 ea inhalation DAILY 07/24/22 07/26/24 07/25/24 09:00 History 62.5 mcg-vilant 25 mcg inhalat.powder (Trelegy Ellipta) digoxin 125 mcg (0.125 mg) tablet 125 mcg PO DAILY 07/26/24 07/26/2407/25/25 09:00 History potassium chloride 20 mEq 20 meq PO DAILY 07/26/24 07/26/24 07/25/24 History tablet,extended release Physical Exam Vital Signs: Vital Signs: Last Vital Signs Temp 98.2 F 07/28/24 15:01 Pulse 66 07/28/24 15:01 Resp 18 07/28/24 15:01 BP 96/66 07/28/24 15:01 Pulse Ox 100 07/28/24 15:01 O2 Del Method Nasal Cannula 07/28/24 15:01 O2 Flow Rate 1 07/28/24 15:01 BMI result Body Mass Index 21.9 Const: General: no acute distress Nutritional Appearance: average body habitus Orientation/consciousness: patient oriented x3 HEENT: Head: Yes normal to inspection Ears: hearing grossly normal bilaterally Eyes: Sclerae: sclerae normal Pupils: Equal, round and reactive pupils present Neck: Neck: Yes normal visual inspection Chest: Chest palpation & inspection: normal inspection of the chest Resp: Effort & Inspection: normal respiratory effort Auscultation: clear to auscultation bilaterally Cardio: Palpation: normal PMI Rate: regular rate Rhythm: regular rhythm Heart sounds: S1 normal heart sound present, S2 normal heart sound present and no murmurs GI: Inspection: Yes visible herniation (Umbilical hernia) Palpation (GI): Soft to palpation, nontender and No hepatosplenomegaly present Auscultation: normal bowel sounds Rectal Exam - Male: Yes deferred Skin: General skin exam: no rashes or lesions noted Neuro: General: patient oriented x3, gait normal and moves all extremities Cranial nerves: Yes Equal, round and reactive pupils present Psych: Appearance: grossly normal Mental Status: mental status grossly normal Results Labs 07/28/24 09:00 07/29/24 09:34 Labs: Short CBC 07/28/24 Range/Units 09:00 WBC 6.0 (4.8-10.8) X10*3/uL Hgb 9.9 L (14.0-18.0) g/dl Hct 29.5 L (42.0-52.0) % Plt Count 98 L D (160-400) X10*3/uL BMP 07/28/24 06:53 Sodium 136 Potassium 3.7 Chloride 102 Carbon Dioxide 28 BUN 6 L Creatinine 0.41 L Calcium 7.3 L Liver Function 07/28/24 Range/Units 06:53 Total Bilirubin 2.4 H (0.0-1.0) mg/dL AST 88 H (5-37) U/L ALT 27 (0-40) U/L Alkaline Phosphatase 334 H (39-117) U/L Albumin 2.0 L (3.5-5.0) g/dL Assessment and Plan (1) Elevated LFTs: Status: Acute (2) GERD (gastroesophageal reflux disease): Qualifiers: Esophagitis presence: with esophagitis Esophagitis bleeding: without hemorrhage Qualified Code(s): K21.00 - Gastro-esophageal reflux disease with esophagitis, without bleeding Status: Acute (3) Tariq's esophagus determined by biopsy: Status: Acute (4) Acute cholecystitis: Status: Acute Plan 54 YM with hx of SC, COPD on home O2 2L, Afib/Aflutter, smoker, HLD, AUD, DAREK, AGUSTÍN, Falls, and umbilical hernia, admitted to [facility] on 07/26/24 due to a recent fall. Patient denies LOC or dizziness. Pt reported stabbing abdominal pain when he touched his abdomen. Pt states he feels pain mostly around the umbilical hernia and pain has improved and is not as bad now compared to when he came in. He also complains of decreased appetite and wt loss of 30-40 lbs over the past 6 months. Iron studies showed normal iron with low TIBC and elevated % sat of 75% and ferritin of 2176 raising concern for possible hereditary hemochromatosis. Anemia is likely nutritional. Elevated LFTs likely a combination of ETOH abuse, +/- hemochromatosis and acute cholecystitis Surgery following patient for suspected acute cholecystitis. RECOMMENDATIONS: 1. Agree with IV PPI and antiemetics and CIWA protocol for ETOH withdrawl 2. Genetic testing for hemochromatosis - added to a.m. labs. 3. Since pt had an EGD and colon 2 years ago, repeat endoscopic evaluation is not indicated unless pt has overt bleeding. Procedures Date of Service Date of Service: 07/29/24
--- NOTE | 2024-07-28 18:09 | HO.PM.IMPN ---
Subjective Subjective Date of Service: 07/28/24 Interval History: Acute cholecystitis, hypomagnesemia Review of Systems Abdominal pain somewhat improving Denies any chest pain or shortness breath. Physical Exam Vital Signs: Vital Signs: Last Vital Signs Temp 98.2 F 07/28/24 15:01 Pulse 66 07/28/24 15:01 Resp 18 07/28/24 15:01 BP 96/66 07/28/24 15:01 Pulse Ox 100 07/28/24 15:01 O2 Del Method Nasal Cannula 07/28/24 15:01 O2 Flow Rate 1 07/28/24 15:01 BMI result Body Mass Index 21.9 Appearance: Alert.? Oriented X3.? cvs: rrr, [id number] , no murmur res: clear to auscultation ,no rhonchii or wheezing abd: no rebound or guarding , mild epigastric discomfort, bs present. ext pulses present , no cyanosis . neuro: axo3 , nonfocal Objective Data Active Medications Atorvastatin Calcium (Atorvastatin Calcium 20 Mg Tablet) 20 mg PO BEDTIME [facility] Last Admin: 07/27/24 21:55 Dose: 20 mg Documented By: JORGE Bisacodyl (Bisacodyl 5 Mg Tablet.Dr) 10 mg PO BEDTIME [facility] Last Admin: 07/27/24 21:55 Dose: Not Given Documented By: JORGE Non-Admin Reason: Patient Refused Buprenorphine/Naloxone (Buprenorphine/Naloxone 8/2 Mg Tab.Subl) 1 tab SUBLINGUAL TID [facility] Last Admin: 07/28/24 17:14 Dose: 1 tab Documented By: JULIO Calcium Carbonate (Calcium Carbonate 750 Mg Tab.Chew) 750 mg PO Q4H PRN PRN Reason: Heartburn Digoxin (Digoxin 0.125 Mg Tablet) 0.125 mg PO DAILY [facility]; Protocol Last Admin: 07/28/24 09:13 Dose: 0.125 mg Documented By: JULIO Diltiazem HCl (Diltiazem Hcl Cd 180 Mg Cap.Er.24h) 180 mg PO DAILY [facility]; Protocol Last Admin: 07/28/24 09:14 Dose: 180 mg Documented By: JULIO Diltiazem HCl (Diltiazem Hcl Cd 120 Mg Cap.Er.Deg) 120 mg PO DAILY [facility]; Protocol Last Admin: 07/28/24 09:14 Dose: 120 mg Documented By: JULIO Fluticasone/Umeclidinium/Vilanterol (Fluticasone/Umeclidinium/Vilanterol 200/62.5/25 Blst.W.Dev) 1 puff INHALE DAILY [facility] Last Admin: 07/28/24 11:33 Dose: 1 puff Documented By: HENRY Folic Acid (Folic Acid 1 Mg Tablet) 1 mg PO DAILY [facility] Last Admin: 07/28/24 09:14 Dose: 1 mg Documented By: JULIO Piperacillin Sod/Tazobactam (Sod 3.375 gm/ Sodium Chloride) 50 mls @ 100 mls/hr IV Q6H [facility] Last Admin: 07/28/24 17:14 Dose: 100 mls/hr Documented By: JULIO Magnesium Hydroxide (Milk Of Magnesia 30 Ml Oral.Susp) 30 ml PO DAILY PRN PRN Reason: Constipation Magnesium Oxide (Magnesium Oxide 400 Mg Tablet) 800 mg PO BIDPC [facility] Last Admin: 07/28/24 17:14 Dose: 800 mg Documented By: JULIO Metoprolol Tartrate (Metoprolol Tartrate 100 Mg Tablet) 100 mg PO BID [facility]; Protocol Last Admin: 07/28/24 09:14 Dose: 100 mg Documented By: JULIO Non-Formulary Medication (Prucalopride [Motegrity]) 2 mg PO DAILY [facility] Pantoprazole Sodium (Pantoprazole Sodium 40 Mg/10 Ml Vial) 40 mg IVPUSH BID@0630,1630 [facility] Last Admin: 07/28/24 17:13 Dose: 40 mg Documented By: JUILO Pharmacy Consult (Consult Rx Etoh Phenob Im/Po) 1 each MISCELLANE ONCE PRN; Protocol PRN Reason: Consult order Phenobarbital (Phenobarbital 30 Mg Tablet) 30 mg PO BID [facility] Stop: 07/30/24 09:01 Phenobarbital (Phenobarbital 30 Mg Tablet) 30 mg PO BEDTIME [facility] Stop: 07/31/24 21:01 Potassium Chloride (Potassium Chloride Er 20 Meq Tab.Er.Prt) 20 meq PO BID [facility] Last Admin: 07/28/24 09:13 Dose: 20 meq Documented By: JULIO Sodium Chloride (0.9 % Sodium Chloride Flush 3 Ml Syringe) 3 ml IVFLUSH QSHIFT [facility] Last Admin: 07/28/24 17:14 Dose: 3 ml Documented By: JULIO Thiamine HCl (Thiamine Hcl 100 Mg Tablet) 100 mg PO DAILY [facility] Last Admin: 07/28/24 09:14 Dose: 100 mg Documented By: JULIO Labs 07/28/24 09:00 07/28/24 06:53 Labs: Laboratory Results - last 24 hr 07/28/24 07/28/24 06:53 09:00 MCV 110.9 H MCH 37.2 H MCHC 33.6 RDW 14.3 Plt Count 98 L D MPV 11.6 Absolute Nucleated RBC 0.000 Nucleated RBC % (auto) 0.0 Hold Purple Top SEE NOTE Anion Gap 10 L Estim Creat Clear Calc 210.7 Estimated GFR > 60 Random Glucose 77 Calcium 7.3 L Magnesium 1.2 L* Ferritin 2176 H Total Bilirubin 2.4 H AST 88 H ALT 27 Alkaline Phosphatase 334 H Total Protein 4.9 L Albumin 2.0 L Vitamin B12 1561 H Folate 5.2 Assessment and Plan (1) Acute cholecystitis: Status: Acute (2) Elevated LFTs: Status: Acute Plan 54-year-old male who presents with increased falls and alcohol use disorder. Alcohol Use Disorder -Phenobarbitol protocol -Thiamine, folic acid Cholecystitis -Hida scan possible acute cholecystitis Seen by surgery currently recommended conservative management with antibiotics,-Zosyn IV ABX Acute hypomagnesemia: Added IV and p.o.. OUD -continue buprenorphine Chronic Macrocytic hyperchromic anemia -h/h trending down, continue to monitor -iron studies -type and cross -Patient denies any melena or erica bleeding HLD -continue atorvastatin Thrombocytopenia -chronic likely due to AUD A Flutter -Eliquis on hold due to Thrombocytopenia -Monitor on Telemetry -Continue digoxin and Cardizem Hypomagnesemia -Patient received 4 grams -Recheck Mg levels tomorrow Hypocalciemia -Corrected calcium 8.1 Falls -PT evaluation Code Full VTE: compression, Contraindicated for medication at this time due to thryombocytopenia Ongoing need: Alcohol withdrawal, acute cholecystitis-need phenobarb protocol, IV antibiotics, acute hypomagnesemia: Need electrolyte monitoring also. Quality Stroke Does the patient have a stroke diagnosis?: No VTE Prior VTE?: No VTE Risk Level:: Medical - low VTE Device Contraindication: N/A - Device Ordered VTE Drug Contraindication: Treatment Not Indicated
[2024-07-28] MEDS: Atorvastatin Calcium 20 MG TABLET PO (21:47)
[2024-07-28] MEDS: bisacodyL 5 MG TABLET.DR 10 MG PO (21:47)
[2024-07-28] MEDS: PHENobarbitaL 30 MG TABLET PO (21:57)
[2024-07-29 04:00] VITALS: BP 113/73; PULSE 62; RESP 16; TEMP 37.2; O2SAT 98
[2024-07-29] MEDS: Piperacillin Sodium/Tazobactam 3.375 GM in 0.9 % Sodium Chloride 50 ML IV ×4 (04:03→21:59)
[2024-07-29] MEDS: Pantoprazole Sodium 40 MG/10 ML VIAL IVPUSH ×2 (05:48→15:42)
[2024-07-29 06:59] VITALS: BP 112/72; PULSE 62; RESP 18; TEMP 36.6; O2SAT 94
[2024-07-29] MEDS: PHENobarbitaL 30 MG TABLET PO ×2 (08:17→21:59)
[2024-07-29] MEDS: dilTIAZem HCL CD 180 MG CAP.ER.24H PO (08:17)
[2024-07-29] MEDS: Digoxin 0.125 MG TABLET PO (08:17)
[2024-07-29] MEDS: dilTIAZem HCL CD 120 MG CAP.ER.DEG PO (08:17)
[2024-07-29] MEDS: Magnesium Oxide 400 MG TABLET 800 MG PO ×2 (08:18→15:51)
[2024-07-29] MEDS: Thiamine HCL 100 MG TABLET PO (08:18)
[2024-07-29] MEDS: Folic Acid 1 MG TABLET PO (08:18)
[2024-07-29] MEDS: Metoprolol Tartrate 100 MG TABLET PO ×2 (08:18→21:59)
[2024-07-29] MEDS: Potassium Chloride ER 20 MEQ TAB.ER.PRT PO ×2 (08:18→21:59)
[2024-07-29] MEDS: 0.9 % Sodium Chloride Flush 3 ML SYRINGE IVFLUSH ×3 (08:19→21:59)
[2024-07-29] MEDS: Fluticasone/Umeclidinium/Vilanterol 200/62.5/25 BLST.W.DEV 1 PUFF INHALE (08:25)
[2024-07-29 10:18] LABS: Anion Gap 10 (12-20); Blood Urea Nitrogen 5 mg/dL (9-16); Calcium 7.6 mg/dL (8.4-10.2); Carbon Dioxide 27 mmol/L (22-29); Chloride 102 mmol/L (96-108); Estimated Glomerular Filt Rate > 60; Glucose Random 80 mg/dL (60-115); Magnesium 1.3 mg/dL (1.6-2.6); Potassium 4.5 mmol/L (3.3-5.1); Sodium 134 mmol/L (135-145)
[2024-07-29] MEDS: Magnesium Sulfate/H2O 2 GM/50 ML PIGGYBACK IV (11:08)
[2024-07-29 11:14] VITALS: BP 100/63; PULSE 63; RESP 18; TEMP 36.3
--- NOTE | 2024-07-29 15:05 | HO.PM.IMPN ---
Subjective Subjective Date of Service: 07/29/24 Interval History: Acute cholecystitis, hypomagnesemia Review of Systems Abdominal pain seems to be improving No fever or nausea or vomiting Review of Systems: Yes all other systems are reviewed and are negative Physical Exam Vital Signs: Vital Signs: Last Vital Signs Temp 97.3 F 07/29/24 11:14 Pulse 63 07/29/24 11:14 Resp 18 07/29/24 11:14 BP 100/63 07/29/24 11:14 Pulse Ox 94 07/29/24 06:59 O2 Del Method Nasal Cannula 07/29/24 06:59 O2 Flow Rate 1 07/29/24 06:59 BMI result Body Mass Index 21.9 Appearance: Alert.? Oriented X3.? cvs: [id number], [id number] , no murmur res: clear to auscultation ,no rhonchii or wheezing abd: no rebound or guarding , mild epigastric discomfort, bs present. ext pulses present , no cyanosis . neuro: axo3 , nonfocal Objective Data Active Medications Atorvastatin Calcium (Atorvastatin Calcium 20 Mg Tablet) 20 mg PO BEDTIME [facility] Last Admin: 07/28/24 21:47 Dose: 20 mg Documented By: DAY Bisacodyl (Bisacodyl 5 Mg Tablet.Dr) 10 mg PO BEDTIME [facility] Last Admin: 07/28/24 21:47 Dose: 10 mg Documented By: DAY Buprenorphine/Naloxone (Buprenorphine/Naloxone 8/2 Mg Tab.Subl) 1 tab SUBLINGUAL TID [facility] Last Admin: 07/29/24 08:28 Dose: Not Given Documented By: DUNCAN Non-Admin Reason: Patient Refused Calcium Carbonate (Calcium Carbonate 750 Mg Tab.Chew) 750 mg PO Q4H PRN PRN Reason: Heartburn Digoxin (Digoxin 0.125 Mg Tablet) 0.125 mg PO DAILY [facility]; Protocol Last Admin: 07/29/24 08:17 Dose: 0.125 mg Documented By: DUNCAN Diltiazem HCl (Diltiazem Hcl Cd 180 Mg Cap.Er.24h) 180 mg PO DAILY [facility]; Protocol Last Admin: 07/29/24 08:17 Dose: 180 mg Documented By: DUNCAN Diltiazem HCl (Diltiazem Hcl Cd 120 Mg Cap.Er.Deg) 120 mg PO DAILY [facility]; Protocol Last Admin: 07/29/24 08:17 Dose: 120 mg Documented By: DUNCAN Fluticasone/Umeclidinium/Vilanterol (Fluticasone/Umeclidinium/Vilanterol 200/62.5/25 Blst.W.Dev) 1 puff INHALE DAILY [facility] Last Admin: 07/29/24 08:25 Dose: 1 puff Documented By: HELEN Folic Acid (Folic Acid 1 Mg Tablet) 1 mg PO DAILY [facility] Last Admin: 07/29/24 08:18 Dose: 1 mg Documented By: DUNCAN Piperacillin Sod/Tazobactam (Sod 3.375 gm/ Sodium Chloride) 50 mls @ 100 mls/hr IV Q6H [facility] Last Infusion: 07/29/24 09:16 Dose: Infused Documented By: DUNCAN Magnesium Hydroxide (Milk Of Magnesia 30 Ml Oral.Susp) 30 ml PO DAILY PRN PRN Reason: Constipation Magnesium Oxide (Magnesium Oxide 400 Mg Tablet) 800 mg PO BIDPC [facility] Last Admin: 07/29/24 08:18 Dose: 800 mg Documented By: DUNCAN Metoprolol Tartrate (Metoprolol Tartrate 100 Mg Tablet) 100 mg PO BID [facility]; Protocol Last Admin: 07/29/24 08:18 Dose: 100 mg Documented By: DUNCAN Non-Formulary Medication (Prucalopride [Motegrity]) 2 mg PO DAILY [facility] Pantoprazole Sodium (Pantoprazole Sodium 40 Mg/10 Ml Vial) 40 mg IVPUSH BID@0630,1630 [facility] Last Admin: 07/29/24 05:48 Dose: 40 mg Documented By: DAY Pharmacy Consult (Consult Rx Etoh Phenob Im/Po) 1 each MISCELLANE ONCE PRN; Protocol PRN Reason: Consult order Phenobarbital (Phenobarbital 30 Mg Tablet) 30 mg PO BID [facility] Stop: 07/30/24 09:01 Last Admin: 07/29/24 08:17 Dose: 30 mg Documented By: DUNCAN Phenobarbital (Phenobarbital 30 Mg Tablet) 30 mg PO BEDTIME [facility] Stop: 07/31/24 21:01 Potassium Chloride (Potassium Chloride Er 20 Meq Tab.Er.Prt) 20 meq PO BID [facility] Last Admin: 07/29/24 08:18 Dose: 20 meq Documented By: DUNCAN Sodium Chloride (0.9 % Sodium Chloride Flush 3 Ml Syringe) 3 ml IVFLUSH QSHIFT [facility] Last Admin: 07/29/24 08:19 Dose: 3 ml Documented By: DUNCAN Thiamine HCl (Thiamine Hcl 100 Mg Tablet) 100 mg PO DAILY [facility] Last Admin: 07/29/24 08:18 Dose: 100 mg Documented By: DUNCAN Labs 07/28/24 09:00 07/29/24 09:34 Labs: Laboratory Results - last 24 hr 07/29/24 09:34 Anion Gap 10 L Estim Creat Clear Calc 180.0 Estimated GFR > 60 Random Glucose 80 Calcium 7.6 L Magnesium 1.3 L* Assessment and Plan (1) Acute cholecystitis: Status: Acute (2) Elevated LFTs: Status: Acute Plan 54-year-old male who presents with increased falls and alcohol use disorder. Alcohol Use Disorder -Phenobarbitol protocol -Thiamine, folic acid Cholecystitis -Hida scan possible acute cholecystitis Seen by surgery currently recommended conservative management with antibiotics,-Zosyn IV ABX Acute hypomagnesemia: Added IV and p.o.. OUD -continue buprenorphine Chronic Macrocytic hyperchromic anemia -h/h trending down, continue to monitor -iron studies -type and cross -Patient denies any melena or erica bleeding HLD -continue atorvastatin Thrombocytopenia -chronic likely due to AUD A Flutter -Eliquis on hold due to Thrombocytopenia -Monitor on Telemetry -Continue digoxin and Cardizem Hypomagnesemia -Patient received 4 grams -Recheck Mg levels tomorrow Hypocalciemia -Corrected calcium 8.1 Falls -PT evaluation Code Full VTE: compression, Contraindicated for medication at this time due to thryombocytopenia Ongoing need: Alcohol withdrawal, acute cholecystitis-need phenobarb protocol, IV antibiotics, acute hypomagnesemia: Need electrolyte monitoring also. Quality Stroke Does the patient have a stroke diagnosis?: No VTE Prior VTE?: No VTE Risk Level:: Medical - low VTE Device Contraindication: N/A - Device Ordered VTE Drug Contraindication: Treatment Not Indicated
[2024-07-29 15:14] VITALS: BP 95/57; PULSE 56; RESP 18; TEMP 36.9
[2024-07-29] MEDS: Buprenorphine/Naloxone 8/2 mg TAB.SUBL 1 TAB SUBLINGUAL ×2 (15:43→21:59)
--- NOTE | 2024-07-29 15:47 | MHC.CM.PN ---
STR HAS BEEN RECOMMENDED, [facility] AND [facility] ARE OFFERING BUT WILL NOT HAVE BEDS UNTIL ELAN
--- NOTE | 2024-07-29 15:48 | PM.PNGS ---
Subjective Subjective Date of Service: 07/29/24 Interval history: Denies abdominal pain Tolerating oral intake States he feels much better Physical Exam Vital Signs: Vital Signs: Last Vital Signs Temp 98.4 F 07/29/24 15:14 Pulse 56 07/29/24 15:14 Resp 18 07/29/24 15:14 BP 95/57 L 07/29/24 15:14 Pulse Ox 94 07/29/24 06:59 O2 Del Method Nasal Cannula 07/29/24 06:59 O2 Flow Rate 1 07/29/24 06:59 BMI result Body Mass Index 21.9 Const: General: comfortable and no acute distress Resp: Effort & Inspection: normal respiratory effort Cardio: Rate: regular rate GI: Other: Very mild tenderness on right lower quadrant only with deep palpation Palpation (GI): Soft to palpation, not firm and no guarding Objective Data Active Medications Atorvastatin Calcium (Atorvastatin Calcium 20 Mg Tablet) 20 mg PO BEDTIME [facility] Last Admin: 07/28/24 21:47 Dose: 20 mg Documented By: DAY Bisacodyl (Bisacodyl 5 Mg Tablet.Dr) 10 mg PO BEDTIME [facility] Last Admin: 07/28/24 21:47 Dose: 10 mg Documented By: DAY Buprenorphine/Naloxone (Buprenorphine/Naloxone 8/2 Mg Tab.Subl) 1 tab SUBLINGUAL TID [facility] Last Admin: 07/29/24 15:43 Dose: 1 tab Documented By: DUNCAN Calcium Carbonate (Calcium Carbonate 750 Mg Tab.Chew) 750 mg PO Q4H PRN PRN Reason: Heartburn Digoxin (Digoxin 0.125 Mg Tablet) 0.125 mg PO DAILY [facility]; Protocol Last Admin: 07/29/24 08:17 Dose: 0.125 mg Documented By: DUNCAN Diltiazem HCl (Diltiazem Hcl Cd 180 Mg Cap.Er.24h) 180 mg PO DAILY [facility]; Protocol Last Admin: 07/29/24 08:17 Dose: 180 mg Documented By: DUNCAN Diltiazem HCl (Diltiazem Hcl Cd 120 Mg Cap.Er.Deg) 120 mg PO DAILY [facility]; Protocol Last Admin: 07/29/24 08:17 Dose: 120 mg Documented By: DUNCAN Fluticasone/Umeclidinium/Vilanterol (Fluticasone/Umeclidinium/Vilanterol 200/62.5/ Blst.W.Dev) 1 puff INHALE DAILY [facility] Last Admin: 07/29/24 08:25 Dose: 1 puff Documented By: HELEN Folic Acid (Folic Acid 1 Mg Tablet) 1 mg PO DAILY [facility] Last Admin: 07/29/24 08:18 Dose: 1 mg Documented By: DUNCAN Piperacillin Sod/Tazobactam (Sod 3.375 gm/ Sodium Chloride) 50 mls @ 100 mls/hr IV Q6H [facility] Last Admin: 07/29/24 15:43 Dose: 100 mls/hr Documented By: DUNCAN Magnesium Hydroxide (Milk Of Magnesia 30 Ml Oral.Susp) 30 ml PO DAILY PRN PRN Reason: Constipation Magnesium Oxide (Magnesium Oxide 400 Mg Tablet) 800 mg PO BIDPC [facility] Last Admin: 07/29/24 08:18 Dose: 800 mg Documented By: DUNCAN Metoprolol Tartrate (Metoprolol Tartrate 100 Mg Tablet) 100 mg PO BID [facility]; Protocol Last Admin: 07/29/24 08:18 Dose: 100 mg Documented By: DUNCAN Non-Formulary Medication (Prucalopride [Motegrity]) 2 mg PO DAILY [facility] Pantoprazole Sodium (Pantoprazole Sodium 40 Mg/10 Ml Vial) 40 mg IVPUSH BID@0630,1630 [facility] Last Admin: 07/29/24 15:42 Dose: 40 mg Documented By: DUNCAN Pharmacy Consult (Consult Rx Etoh Phenob Im/Po) 1 each MISCELLANE ONCE PRN; Protocol PRN Reason: Consult order Phenobarbital (Phenobarbital 30 Mg Tablet) 30 mg PO BID [facility] Stop: 07/30/24 09:01 Last Admin: 07/29/24 08:17 Dose: 30 mg Documented By: DUNCAN Phenobarbital (Phenobarbital 30 Mg Tablet) 30 mg PO BEDTIME [facility] Stop: 07/31/24 21:01 Potassium Chloride (Potassium Chloride Er 20 Meq Tab.Er.Prt) 20 meq PO BID [facility] Last Admin: 07/29/24 08:18 Dose: 20 meq Documented By: DUNCAN Sodium Chloride (0.9 % Sodium Chloride Flush 3 Ml Syringe) 3 ml IVFLUSH QSHIFT [facility] Last Admin: 07/29/24 15:45 Dose: 3 ml Documented By: DUNCAN Thiamine HCl (Thiamine Hcl 100 Mg Tablet) 100 mg PO DAILY [facility] Last Admin: 07/29/24 08:18 Dose: 100 mg Documented By: DUNCAN Labs 07/28/24 09:00 07/29/24 09:34 Labs: Laboratory Results - last 24 hr 07/29/24 09:34 Anion Gap 10 L Estim Creat Clear Calc 180.0 Estimated GFR > 60 Random Glucose 80 Calcium 7.6 L Magnesium 1.3 L* Procedures Date of Service Date of Service: 07/29/24 Progress Note: A&P Assessment and plan (1) Acute cholecystitis: Status: Acute Assessment and Plan: Much better with IV antibiotics Had other acute ongoing issues Diet as tolerated No surgical intervention at this time Patient clinically looks well Time Spent With Patient Time: Total time managing care of this patient today ____ minutes. Quality Stroke Does the patient have a stroke diagnosis?: No VTE Prior VTE?: No VTE Risk Level:: Medical - low VTE Device Contraindication: N/A - Device Ordered VTE Drug Contraindication: Treatment Not Indicated
[2024-07-29 19:36] VITALS: BP 103/64; PULSE 62; RESP 16; TEMP 36.3; O2SAT 98
[2024-07-29] MEDS: Atorvastatin Calcium 20 MG TABLET PO (21:59)
[2024-07-29] MEDS: bisacodyL 5 MG TABLET.DR 10 MG PO (21:59)
[2024-07-29 23:30] VITALS: BP 105/62; PULSE 62; RESP 16; TEMP 36.1; O2SAT 98
[2024-07-30] MEDS: Piperacillin Sodium/Tazobactam 3.375 GM in 0.9 % Sodium Chloride 50 ML IV ×2 (03:51→11:17)
[2024-07-30 04:00] VITALS: BP 122/79; PULSE 68; RESP 16; TEMP 36.6; O2SAT 98
[2024-07-30] MEDS: Fluticasone/Umeclidinium/Vilanterol 200/62.5/25 BLST.W.DEV 1 PUFF INHALE (07:21)
[2024-07-30 07:22] VITALS: PULSE 79; RESP 18; O2SAT 99
[2024-07-30 07:30] VITALS: BP 109/69; PULSE 86; RESP 17; TEMP 36.3; O2SAT 91
--- NOTE | 2024-07-30 07:47 | P.PNIM_ITS ---
Subjective Subjective Date of Service: 07/30/24 Interval History: hypomag,cholecystitis copd on home oxygen 2 liters Review of Systems no new c/o Review of Systems: Yes all other systems are reviewed and are negative Physical Exam 2 Vital Signs: Vital Signs: Last Vital Signs Temp 97.4 F 07/30/24 07:30 Pulse 86 07/30/24 07:30 Resp 17 07/30/24 07:30 BP 109/69 07/30/24 07:30 Pulse Ox 91 L 07/30/24 07:30 O2 Del Method Nasal Cannula 07/30/24 07:30 O2 Flow Rate 1 07/30/24 07:30 BMI result Body Mass Index 21.9 Appearance: Alert.? Oriented X3.? cvs: rrr, [id number] , no murmur res: clear to auscultation ,no rhonchii or wheezing abd: no rebound or guarding , mild epigastric discomfort, bs present. ext pulses present , no cyanosis . neuro: axo3 , nonfocal Objective Data Active Medications Atorvastatin Calcium (Atorvastatin Calcium 20 Mg Tablet) 20 mg PO BEDTIME [facility] Last Admin: 07/29/24 21:59 Dose: 20 mg Documented By: DAY Bisacodyl (Bisacodyl 5 Mg Tablet.Dr) 10 mg PO BEDTIME [facility] Last Admin: 07/29/24 21:59 Dose: 10 mg Documented By: DAY Buprenorphine/Naloxone (Buprenorphine/Naloxone 8/2 Mg Tab.Subl) 1 tab SUBLINGUAL TID [facility] Last Admin: 07/29/24 21:59 Dose: 1 tab Documented By: DAY Calcium Carbonate (Calcium Carbonate 750 Mg Tab.Chew) 750 mg PO Q4H PRN PRN Reason: Heartburn Digoxin (Digoxin 0.125 Mg Tablet) 0.125 mg PO DAILY [facility]; Protocol Last Admin: 07/29/24 08:17 Dose: 0.125 mg Documented By: DUNCAN Diltiazem HCl (Diltiazem Hcl Cd 180 Mg Cap.Er.24h) 180 mg PO DAILY [facility]; Protocol Last Admin: 07/29/24 08:17 Dose: 180 mg Documented By: DUNCAN Diltiazem HCl (Diltiazem Hcl Cd 120 Mg Cap.Er.Deg) 120 mg PO DAILY [facility]; Protocol Last Admin: 07/29/24 08:17 Dose: 120 mg Documented By: DUNCAN Fluticasone/Umeclidinium/Vilanterol (Fluticasone/Umeclidinium/Vilanterol 200/62.5/25 Blst.W.Dev) 1 puff INHALE DAILY [facility] Last Admin: 07/30/24 07:21 Dose: 1 puff Documented By: ARSENIO Folic Acid (Folic Acid 1 Mg Tablet) 1 mg PO DAILY [facility] Last Admin: 07/29/24 08:18 Dose: 1 mg Documented By: DUNCAN Piperacillin Sod/Tazobactam (Sod 3.375 gm/ Sodium Chloride) 50 mls @ 100 mls/hr IV Q6H [facility] Last Infusion: 07/30/24 04:22 Dose: Infused Documented By: DAY Magnesium Hydroxide (Milk Of Magnesia 30 Ml Oral.Susp) 30 ml PO DAILY PRN PRN Reason: Constipation Magnesium Oxide (Magnesium Oxide 400 Mg Tablet) 800 mg PO BIDPC [facility] Last Admin: 07/29/24 15:51 Dose: 800 mg Documented By: DUNCAN Metoprolol Tartrate (Metoprolol Tartrate 100 Mg Tablet) 100 mg PO BID [facility]; Protocol Last Admin: 07/29/24 21:59 Dose: 100 mg Documented By: DAY Non-Formulary Medication (Prucalopride [Motegrity]) 2 mg PO DAILY [facility] Pharmacy Consult (Consult Rx Etoh Phenob Im/Po) 1 each MISCELLANE ONCE PRN; Protocol PRN Reason: Consult order Phenobarbital (Phenobarbital 30 Mg Tablet) 30 mg PO BID [facility] Stop: 07/30/24 09:01 Last Admin: 07/29/24 21:59 Dose: 30 mg Documented By: DAY Phenobarbital (Phenobarbital 30 Mg Tablet) 30 mg PO BEDTIME [facility] Stop: 07/31/24 21:01 Potassium Chloride (Potassium Chloride Er 20 Meq Tab.Er.Prt) 20 meq PO BID [facility] Last Admin: 07/29/24 21:59 Dose: 20 meq Documented By: DAY Sodium Chloride (0.9 % Sodium Chloride Flush 3 Ml Syringe) 3 ml IVFLUSH QSHIFT [facility] Last Admin: 07/29/24 21:59 Dose: 3 ml Documented By: DAY Thiamine HCl (Thiamine Hcl 100 Mg Tablet) 100 mg PO DAILY [facility] Last Admin: 07/29/24 08:18 Dose: 100 mg Documented By: DUNCAN Labs 07/28/24 09:00 07/30/24 07:59 Labs: Laboratory Results - last 24 hr 07/29/24 09:34 Anion Gap 10 L Estim Creat Clear Calc 180.0 Estimated GFR > 60 Random Glucose 80 Calcium 7.6 L Magnesium 1.3 L* Assessment and Plan (1) Acute cholecystitis: Status: Acute (2) Elevated LFTs: Status: Acute Plan 54-year-old male who presents with increased falls and alcohol use disorder. Alcohol Use Disorder -Phenobarbitol protocol -Thiamine, folic acid Cholecystitis -Hida scan possible acute cholecystitis Seen by surgery currently recommended conservative management with antibiotics- Zosyn IV ABX Acute hypomagnesemia: Added IV and p.o.. OUD -continue buprenorphine Chronic Macrocytic hyperchromic anemia -h/h trending down, continue to monitor -iron studies -type and cross -Patient denies any melena or erica bleeding HLD -continue atorvastatin Thrombocytopenia -chronic likely due to AUD A Flutter -Eliquis on hold due to Thrombocytopenia -Monitor on Telemetry -Continue digoxin and Cardizem Hypomagnesemia -Patient received 4 grams -Recheck Mg levels tomorrow Hypocalciemia -Corrected calcium 8.1 Falls -PT evaluation Code Full VTE: compression, Contraindicated for medication at this time due to thryombocytopenia Ongoing need: Alcohol withdrawal, acute cholecystitis-need phenobarb protocol, IV antibiotics, acute hypomagnesemia: Need electrolyte monitoring also. Quality Stroke Does the patient have a stroke diagnosis?: No VTE Prior VTE?: No VTE Risk Level:: Medical - low VTE Device Contraindication: N/A - Device Ordered VTE Drug Contraindication: Treatment Not Indicated
[2024-07-30 08:54] LABS: Alanine Aminotransferase 30 U/L (0-40); Alkaline Phosphatase 396 U/L (39-117); Anion Gap 11 (12-20); Aspartate Amino Transferase 91 U/L (5-37); Bilirubin Total 1.5 mg/dL (0.0-1.0); Blood Urea Nitrogen 5 mg/dL (9-16); Calcium 7.5 mg/dL (8.4-10.2); Carbon Dioxide 25 mmol/L (22-29); Chloride 104 mmol/L (96-108); Creatinine Clr Calc Pharmacy 187.8; Estimated Glomerular Filt Rate > 60; Glucose Random 80 mg/dL (60-115); Magnesium 1.3 mg/dL (1.6-2.6); Sodium 136 mmol/L (135-145); Total Protein 5.1 g/dL (6.5-8.0)
[2024-07-30] MEDS: dilTIAZem HCL CD 180 MG CAP.ER.24H PO (09:12)
[2024-07-30] MEDS: Magnesium Sulfate/H2O 2 GM/50 ML PIGGYBACK IV ×2 (09:12→20:56)
[2024-07-30] MEDS: Potassium Chloride ER 20 MEQ TAB.ER.PRT PO ×2 (09:13→20:49)
[2024-07-30] MEDS: Buprenorphine/Naloxone 8/2 mg TAB.SUBL 1 TAB SUBLINGUAL ×3 (09:13→20:49)
[2024-07-30] MEDS: dilTIAZem HCL CD 120 MG CAP.ER.DEG PO (09:13)
[2024-07-30] MEDS: Digoxin 0.125 MG TABLET PO (09:13)
[2024-07-30] MEDS: Magnesium Oxide 400 MG TABLET 800 MG PO ×2 (09:14→17:54)
[2024-07-30] MEDS: Folic Acid 1 MG TABLET PO (09:14)
[2024-07-30] MEDS: Thiamine HCL 100 MG TABLET PO (09:14)
[2024-07-30] MEDS: Metoprolol Tartrate 100 MG TABLET PO ×2 (09:14→20:49)
[2024-07-30] MEDS: PHENobarbitaL 30 MG TABLET PO ×2 (09:16→20:48)
[2024-07-30] MEDS: 0.9 % Sodium Chloride Flush 3 ML SYRINGE IVFLUSH ×3 (09:17→20:50)
[2024-07-30 11:41] VITALS: BP 114/70; PULSE 62; RESP 17; TEMP 36.4; O2SAT 99
[2024-07-30] MEDS: Amoxicillin/Potassium Clav 875 MG TABLET PO (12:39)
[2024-07-30] MEDS: guaiFENesin 200 MG/10 ML 10 ML LIQUID PO (12:39)
--- NOTE | 2024-07-30 14:33 | P.PNGS_ITS ---
Subjective Subjective Date of Service: 07/30/24 Interval history: Denies abdominal pain Tolerating diet Says he feels better overall Physical Exam 2 Vital Signs: Vital Signs: Last Vital Signs Temp 97.6 F 07/30/24 11:41 Pulse 62 07/30/24 11:41 Resp 17 07/30/24 11:41 BP 114/70 07/30/24 11:41 Pulse Ox 99 07/30/24 11:41 O2 Del Method Nasal Cannula 07/30/24 11:41 O2 Flow Rate 1 07/30/24 11:41 BMI result Body Mass Index 21.9 Const: General: comfortable and no acute distress Resp: Effort & Inspection: normal respiratory effort Cardio: Rate: regular rate GI: Palpation (GI): Soft to palpation, not firm and nontender Objective Data Active Medications Amoxicillin/Clavulanate Potassium (Amoxicillin/Potassium Clav 875 Mg Tablet) 875 mg PO Q12H [facility] Last Admin: 07/30/24 12:39 Dose: 875 mg Documented By: BRENNAN Atorvastatin Calcium (Atorvastatin Calcium 20 Mg Tablet) 20 mg PO BEDTIME [facility] Last Admin: 07/29/24 21:59 Dose: 20 mg Documented By: DAY Bisacodyl (Bisacodyl 5 Mg Tablet.Dr) 10 mg PO BEDTIME [facility] Last Admin: 07/29/24 21:59 Dose: 10 mg Documented By: DAY Buprenorphine/Naloxone (Buprenorphine/Naloxone 8/2 Mg Tab.Subl) 1 tab SUBLINGUAL TID [facility] Last Admin: 07/30/24 09:13 Dose: 1 tab Documented By: BRENNAN Calcium Carbonate (Calcium Carbonate 750 Mg Tab.Chew) 750 mg PO Q4H PRN PRN Reason: Heartburn Digoxin (Digoxin 0.125 Mg Tablet) 0.125 mg PO DAILY [facility]; Protocol Last Admin: 07/30/24 09:13 Dose: 0.125 mg Documented By: BRENNAN Diltiazem HCl (Diltiazem Hcl Cd 180 Mg Cap.Er.24h) 180 mg PO DAILY [facility]; Protocol Last Admin: 07/30/24 09:12 Dose: 180 mg Documented By: BRENNAN Diltiazem HCl (Diltiazem Hcl Cd 120 Mg Cap.Er.Deg) 120 mg PO DAILY [facility]; Protocol Last Admin: 07/30/24 09:13 Dose: 120 mg Documented By: BRENNAN Fluticasone/Umeclidinium/Vilanterol (Fluticasone/Umeclidinium/Vilanterol 200/62.5/25 Blst.W.Dev) 1 puff INHALE DAILY [facility] Last Admin: 07/30/24 07:21 Dose: 1 puff Documented By: ARSENIO Folic Acid (Folic Acid 1 Mg Tablet) 1 mg PO DAILY [facility] Last Admin: 07/30/24 09:14 Dose: 1 mg Documented By: BRENNAN Guaifenesin (Guaifenesin 200 Mg/10 Ml 10 Ml Liquid) 10 ml PO Q6H PRN PRN Reason: Cough Last Admin: 07/30/24 12:39 Dose: 10 ml Documented By: BRENNAN Magnesium Sulfate (Magnesium Sulfate/H2o) 2 gm in 50 mls @ 25 mls/hr IV BID [facility] Last Infusion: 07/30/24 11:15 Dose: Infused Documented By: BRENNAN Magnesium Hydroxide (Milk Of Magnesia 30 Ml Oral.Susp) 30 ml PO DAILY PRN PRN Reason: Constipation Magnesium Oxide (Magnesium Oxide 400 Mg Tablet) [facility] Last Admin: 07/30/24 09:14 Dose: 800 mg Documented By: BRENNAN Metoprolol Tartrate (Metoprolol Tartrate 100 Mg Tablet) 100 mg PO BID [facility]; Protocol Last Admin: 07/30/24 09:14 Dose: 100 mg Documented By: BRENNAN Non-Formulary Medication (Prucalopride [Motegrity]) 2 mg PO DAILY [facility] Pharmacy Consult (Consult Rx Etoh Phenob Im/Po) 1 each MISCELLANE ONCE PRN; Protocol PRN Reason: Consult order Phenobarbital (Phenobarbital 30 Mg Tablet) 30 mg PO BEDTIME [facility] Stop: 07/31/24 21:01 Potassium Chloride (Potassium Chloride Er 20 Meq Tab.Er.Prt) 20 meq PO BID [facility] Last Admin: 07/30/24 09:13 Dose: 20 meq Documented By: BRENNAN Sodium Chloride (0.9 % Sodium Chloride Flush 3 Ml Syringe) 3 ml IVFLUSH QSHIFT [facility] Last Admin: 07/30/24 09:17 Dose: 3 ml Documented By: BRENNAN Thiamine HCl (Thiamine Hcl 100 Mg Tablet) 100 mg PO DAILY [facility] Last Admin: 07/30/24 09:14 Dose: 100 mg Documented By: BRENNAN Labs 07/28/24 09:00 07/30/24 07:59 Labs: Laboratory Results - last 24 hr 07/30/24 07:59 Anion Gap 11 L Estim Creat Clear Calc 187.8 Estimated GFR > 60 Random Glucose 80 Calcium 7.5 L Magnesium 1.3 L* Total Bilirubin 1.5 H AST 91 H ALT 30 Alkaline Phosphatase 396 H Total Protein 5.1 L Albumin 2.0 L Procedures Date of Service Date of Service: 07/30/24 Progress Note: A&P Assessment and plan (1) Acute cholecystitis: Status: Acute Assessment and Plan: Has multiple other medical problems Clinically much improved with antibiotics Has thrombocytopenia - Eliquis on hold With chronic liver disease as well I explained above to family at bedside - the wanted to talk to the hospitalist On diet Time Spent With Patient Time: Total time managing care of this patient today ____ minutes. Quality Stroke Does the patient have a stroke diagnosis?: No VTE Prior VTE?: No VTE Risk Level:: Medical - low VTE Device Contraindication: N/A - Device Ordered VTE Drug Contraindication: Treatment Not Indicated
[2024-07-30 15:57] VITALS: BP 109/72; PULSE 62; RESP 17; TEMP 36.8; O2SAT 98
[2024-07-30 20:00] VITALS: BP 125/62; PULSE 63; RESP 16; TEMP 36.3; O2SAT 97
[2024-07-30] MEDS: bisacodyL 5 MG TABLET.DR 10 MG PO (20:49)
[2024-07-30] MEDS: Atorvastatin Calcium 20 MG TABLET PO (20:49)
[2024-07-31] VITALS (11 sets, daily range): BP systolic 94–140; BP diastolic 59–81; PULSE 60–83; RESP 18; TEMP 36.1–36.7; O2SAT 98–100
[2024-07-31] MEDS: Amoxicillin/Potassium Clav 875 MG TABLET PO ×3 (01:57→23:29)
[2024-07-31] MEDS: Magnesium Oxide 400 MG TABLET 800 MG PO ×2 (06:38→18:02)
[2024-07-31] MEDS: Fluticasone/Umeclidinium/Vilanterol 200/62.5/25 BLST.W.DEV 1 PUFF INHALE (07:50)
[2024-07-31] MEDS: 0.9 % Sodium Chloride Flush 3 ML SYRINGE IVFLUSH ×3 (08:53→20:39)
[2024-07-31] MEDS: Buprenorphine/Naloxone 8/2 mg TAB.SUBL 1 TAB SUBLINGUAL ×3 (08:54→20:38)
[2024-07-31] MEDS: Potassium Chloride ER 20 MEQ TAB.ER.PRT PO ×2 (08:54→20:39)
[2024-07-31] MEDS: Digoxin 0.125 MG TABLET PO (08:55)
[2024-07-31] MEDS: dilTIAZem HCL CD 180 MG CAP.ER.24H PO (08:55)
[2024-07-31] MEDS: Thiamine HCL 100 MG TABLET PO (08:55)
[2024-07-31] MEDS: Metoprolol Tartrate 100 MG TABLET PO ×2 (08:58→20:38)
[2024-07-31] MEDS: Folic Acid 1 MG TABLET PO (08:59)
[2024-07-31] MEDS: dilTIAZem HCL CD 120 MG CAP.ER.DEG PO (08:59)
[2024-07-31 09:13] LABS: Alanine Aminotransferase 31 U/L (0-40); Albumin Level 2.2 g/dL (3.5-5.0); Alkaline Phosphatase 425 U/L (39-117); Anion Gap 11 (12-20); Aspartate Amino Transferase 94 U/L (5-37); Bilirubin Total 1.3 mg/dL (0.0-1.0); Blood Urea Nitrogen 5 mg/dL (9-16); Calcium 7.8 mg/dL (8.4-10.2); Carbon Dioxide 27 mmol/L (22-29); Chloride 103 mmol/L (96-108); Creatinine Clr Calc Pharmacy 196.4; Estimated Glomerular Filt Rate > 60; Glucose Random 82 mg/dL (60-115); Magnesium 1.6 mg/dL (1.6-2.6); Potassium 4.5 mmol/L (3.3-5.1); Sodium 136 mmol/L (135-145); Total Protein 5.5 g/dL (6.5-8.0)
--- NOTE | 2024-07-31 09:48 | P.CDIM_ITS ---
PROVIDER RESPONSE TEXT: To clarify, the appropriate diagnosis supported by the clinical indicators: Chronic respiratory failure: ch resp failure sec to copd QUERY TEXT: PHYSICIAN'S DOCUMENTATION REQUEST Date of Query: 07/31/2024 08:31 AM EDT Patient Name: Nikko Alejandro Admit Date: 07/26/2024 Dear Mat Santo MD, A review of the medical record indicates additional documentation may be needed. Please review below and update the documentation accordingly. Clinical Indicators: H&P 07/26/24 - COPD on home O2, 2 Liters Progress note dated 07/30/24 - COPD on home oxygen 2 Liters Please clarify which of the following accurately represents the patient's respiratory status: Chronic respiratory failure Please specify if Hypoxic, Hypercapnic, or Hypoxic and hypercapnic Oxygen dependent Other specified Other (explain) Clinically unable to determine (explain) Thank you, Chelo Nuñez, CCS, CDIS Use of terms such as suspected, likely, concern for, or probable (associated with a specific diagnosi s that is being evaluated, monitored, or treated as if it exists) are acceptable and can be coded in the inpatient se tting, when documented at the time of discharge. Please use your independent medical judgment in providing your response. THIS QUERY IS PART OF THE PERMANENT MEDICAL RECORD
--- NOTE | 2024-07-31 11:37 | MHC.CM.PN ---
IMM 07/31/24 DELIVERED TO BEDSIDE, CM REVIEWED BED OFFERS W/PT, PT REPORTS HE PREFERS [facility] IT IS CLOSE TO HIS [place] [facility] AND NOT FAR FOR , ANTIC PT MAY BE CLEARED LATER TODAY OR TOMORROW, PT WILL NEED BLS TRANSPORT, CM WILL CONT TO FOLLOW.
--- NOTE | 2024-07-31 15:27 | P.PNIM_ITS ---
Subjective Subjective Date of Service: 07/31/24 Interval History: acute cholecystitis Review of Systems abd pain seems improved generalsied weak Review of Systems: Yes all other systems are reviewed and are negative Physical Exam 2 Vital Signs: Vital Signs: Last Vital Signs Temp 97.4 F 07/31/24 15:14 Pulse 63 07/31/24 15:14 Resp 18 07/31/24 15:14 BP 107/70 07/31/24 15:14 Pulse Ox 98 07/31/24 15:14 O2 Del Method Nasal Cannula 07/31/24 15:14 O2 Flow Rate 1 07/31/24 15:14 BMI result Body Mass Index 21.9 Appearance: Alert.? Oriented X3.? cvs: rrr, [id number] , no murmur res: clear to auscultation ,no rhonchii or wheezing abd: no rebound or guarding , mild epigastric discomfort, bs present. ext pulses present , no cyanosis . neuro: axo3 , nonfocal Objective Data Active Medications Amoxicillin/Clavulanate Potassium (Amoxicillin/Potassium Clav 875 Mg Tablet) 875 mg PO Q12H [facility] Last Admin: 07/31/24 11:02 Dose: 875 mg Documented By: KATHERIN Atorvastatin Calcium (Atorvastatin Calcium 20 Mg Tablet) 20 mg PO BEDTIME [facility] Last Admin: 07/30/24 20:49 Dose: 20 mg Documented By: FAUSTINO Bisacodyl (Bisacodyl 5 Mg Tablet.Dr) 10 mg PO BEDTIME [facility] Last Admin: 07/30/24 20:49 Dose: 10 mg Documented By: FAUSTINO Buprenorphine/Naloxone (Buprenorphine/Naloxone 8/2 Mg Tab.Subl) 1 tab SUBLINGUAL TID [facility] Last Admin: 07/31/24 14:39 Dose: 1 tab Documented By: KATHERIN Calcium Carbonate (Calcium Carbonate 750 Mg Tab.Chew) 750 mg PO Q4H PRN PRN Reason: Heartburn Digoxin (Digoxin 0.125 Mg Tablet) 0.125 mg PO DAILY [facility]; Protocol Last Admin: 07/31/24 08:55 Dose: 0.125 mg Documented By: KATHERIN Diltiazem HCl (Diltiazem Hcl Cd 180 Mg Cap.Er.24h) 180 mg PO DAILY [facility]; Protocol Last Admin: 07/31/24 08:55 Dose: 180 mg Documented By: KATHERIN Diltiazem HCl (Diltiazem Hcl Cd 120 Mg Cap.Er.Deg) 120 mg PO DAILY [facility]; Protocol Last Admin: 07/31/24 08:59 Dose: 120 mg Documented By: KATHERIN Fluticasone/Umeclidinium/Vilanterol (Fluticasone/Umeclidinium/Vilanterol 200/62.5/25 Blst.W.Dev) 1 puff INHALE DAILY [facility] Last Admin: 07/31/24 07:50 Dose: 1 puff Documented By: SONIA Folic Acid (Folic Acid 1 Mg Tablet) 1 mg PO DAILY [facility] Last Admin: 07/31/24 08:59 Dose: 1 mg Documented By: KATHERIN Guaifenesin (Guaifenesin 200 Mg/10 Ml 10 Ml Liquid) 10 ml PO Q6H PRN PRN Reason: Cough Last Admin: 07/30/24 12:39 Dose: 10 ml Documented By: BRENNAN Magnesium Hydroxide (Milk Of Magnesia 30 Ml Oral.Susp) 30 ml PO DAILY PRN PRN Reason: Constipation Magnesium Oxide (Magnesium Oxide 400 Mg Tablet) 800 mg PO BIDPC [facility] Last Admin: 07/31/24 06:38 Dose: 800 mg Documented By: FAUSTINO Metoprolol Tartrate (Metoprolol Tartrate 100 Mg Tablet) 100 mg PO BID [facility]; Protocol Last Admin: 07/31/24 08:58 Dose: 100 mg Documented By: KATHERIN Pharmacy Consult (Consult Rx Etoh Phenob Im/Po) 1 each MISCELLANE ONCE PRN; Protocol PRN Reason: Consult order Phenobarbital (Phenobarbital 30 Mg Tablet) 30 mg PO BEDTIME [facility] Stop: 07/31/24 21:01 Last Admin: 07/30/24 20:48 Dose: 30 mg Documented By: FAUSTINO Potassium Chloride (Potassium Chloride Er 20 Meq Tab.Er.Prt) 20 meq PO BID [facility] Last Admin: 07/31/24 08:54 Dose: 20 meq Documented By: KATHERIN Sodium Chloride (0.9 % Sodium Chloride Flush 3 Ml Syringe) 3 ml IVFLUSH QSHIFT [facility] Last Admin: 07/31/24 14:39 Dose: 3 ml Documented By: KATHERIN Thiamine HCl (Thiamine Hcl 100 Mg Tablet) 100 mg PO DAILY [facility] Last Admin: 07/31/24 08:55 Dose: 100 mg Documented By: KATHERIN Labs 07/28/24 09:00 07/31/24 08:25 Labs: Laboratory Results - last 24 hr 07/28/24 07/31/24 09:00 08:25 Smear Path Review SEE NOTE Anion Gap 11 L Estim Creat Clear Calc 196.4 Estimated GFR > 60 Random Glucose 82 Calcium 7.8 L Magnesium 1.6 Total Bilirubin 1.3 H AST 94 H ALT 31 Alkaline Phosphatase 425 H Total Protein 5.5 L Albumin 2.2 L Assessment and Plan (1) Acute cholecystitis: Status: Acute (2) Elevated LFTs: Status: Acute Plan 54-year-old male who presents with increased falls and alcohol use disorder. Alcohol Use Disorder -Phenobarbitol protocol -Thiamine, folic acid Cholecystitis -Hida scan possible acute cholecystitis Seen by surgery currently recommended conservative management with antibiotics- Zosyn IV ABX Acute hypomagnesemia: Added IV and p.o.. OUD -continue buprenorphine Chronic Macrocytic hyperchromic anemia -h/h trending down, continue to monitor -iron studies -type and cross -Patient denies any melena or erica bleeding HLD -continue atorvastatin Thrombocytopenia -chronic likely due to AUD A Flutter -Eliquis on hold due to Thrombocytopenia -Monitor on Telemetry -Continue digoxin and Cardizem Hypomagnesemia -Patient received 4 grams -Recheck Mg levels tomorrow Hypocalciemia -Corrected calcium 8.1 Falls -PT evaluation Code Full VTE: compression, Contraindicated for medication at this time due to thryombocytopenia Ongoing need: Alcohol withdrawal, acute cholecystitis-need phenobarb protocol, IV antibiotics, acute hypomagnesemia: Need electrolyte monitoring also. Quality Stroke Does the patient have a stroke diagnosis?: No VTE Prior VTE?: No VTE Risk Level:: Medical - low VTE Device Contraindication: N/A - Device Ordered VTE Drug Contraindication: Treatment Not Indicated
[2024-07-31] MEDS: guaiFENesin 200 MG/10 ML 10 ML LIQUID PO (20:38)
[2024-07-31] MEDS: PHENobarbitaL 30 MG TABLET PO (20:39)
[2024-07-31] MEDS: Atorvastatin Calcium 20 MG TABLET PO (20:39)
[2024-08-01 03:51] VITALS: BP 130/69; PULSE 65; RESP 18; TEMP 36.7; O2SAT 98
[2024-08-01 07:23] VITALS: BP 114/78; PULSE 76; RESP 20; TEMP 36.6; O2SAT 95
[2024-08-01 07:47] VITALS: PULSE 69; RESP 15; O2SAT 98
[2024-08-01] MEDS: Fluticasone/Umeclidinium/Vilanterol 200/62.5/25 BLST.W.DEV 1 PUFF INHALE (07:47)
[2024-08-01] MEDS: Digoxin 0.125 MG TABLET PO (08:43)
[2024-08-01] MEDS: Potassium Chloride ER 20 MEQ TAB.ER.PRT PO (08:43)
[2024-08-01] MEDS: Metoprolol Tartrate 100 MG TABLET PO (08:43)
[2024-08-01] MEDS: Folic Acid 1 MG TABLET PO (08:43)
[2024-08-01] MEDS: dilTIAZem HCL CD 180 MG CAP.ER.24H PO (08:43)
[2024-08-01] MEDS: Thiamine HCL 100 MG TABLET PO (08:44)
[2024-08-01] MEDS: Magnesium Oxide 400 MG TABLET 800 MG PO (08:44)
[2024-08-01] MEDS: dilTIAZem HCL CD 120 MG CAP.ER.DEG PO (08:44)
[2024-08-01] MEDS: 0.9 % Sodium Chloride Flush 3 ML SYRINGE IVFLUSH (08:44)
--- NOTE | 2024-08-01 09:01 | PM.DS ---
DS: Providers Provider Date of Service: 08/01/24 Date of admission: 07/26/24 11:29 Date of discharge: 08/01/24 Primary care physician: Katie Collier MD Consults: 07/25/24 22:08 ED Recovery Team Consult Stat Comment: Reason for consultation: wants detox 07/26/24 13:01 Addiction Medicine Provider Routine Consulting Provider: Addiction Covering Reason for consultation: daily alcohol abuse 07/26/24 13:13 Consult to Wound Care Routine Reason for consultation: skin tear to left brito 07/27/24 08:30 Consult to General Surgery Routine Consulting Provider: [facility] General Surgeons Reason for consultation: Possible cholecytitis Has provider been notified: No 07/28/24 08:45 Consult to Gastroenterology Routine Consulting Provider: [facility] Gastroenterology Services Reason for consultation: anemia , gastritis Has provider been notified: No 07/28/24 09:34 Inpt - Recovery Team Routine Comment: Reason for consultation: BH/DAREK eval Attending physician on discharge: Mat Santo Discharging clinician: Mat Santo DS: Diagnosis Discharge Diagnosis (1) Acute cholecystitis: Status: Acute (2) Elevated LFTs: Status: Acute DS: Summary Hospital Course Hospital Course: HPI:54 year old male with a past medical history of TX, COPD on home O2 2L, Afib/Aflutter, smoker, HLD, AUD, DAREK, AGUSTÍN, Falls, and umbilical hernia, who presented to the ER due to a recent fall. Patient denies LOC or dizziness. He denies fever, chills, dizziness, CP, SOB, nausea, vomiting, diarrhea, or blood in stools. He reports abdominal pain that is described as stabbing when he touches his abdomen. Nikko reports that he uses a cane and walker and his mobility has gotten worse recently. He reports drinking 1.5 pints of Vodka daily and wants help with alcohol detox. In the ER: CT of head was negative for a bleed or fracture Abdomen CT no evidence of traumatic injury to the abdominal or pelvic area. Marked hepatic steatosis Cervical Spine CT no acute cervical spine fracture or injury. Degenerative spondylosis and mild right convex scoliosis. Paraseptal emphysematous change in the lung apices. US of Abdomen 1. Gallbladder demonstrating echogenic layering sludge with a positive sonographic Haq's sign. No significant wall thickening (borderline at 3 mm) and no definite pericholecystic fluid collection. Cannot exclude acute cholecystitis.2. No biliary dilatation. Labs significant for RBC 2.26, hemoglobin 8.6, hematocrit 24.9, platelets 63, magnesium 1.1, ALT 31, AST 127, alkaline phosphatase 391, bilirubin 3.6 albumin 2.3, lipase 7, calcium 7.1 Urinalysis was negative Toxicology was positive for buprenorphine Flu a, flu B, RSV, SARS COVID 2 all negative. Hospital course: 54-year-old male admitted for increased fall and alcohol use disorder: Started on phenobarb protocol, in addition found to have increased LFTs and abdominal pain-further workup with a abdominal ultrasound done and subsequently also HIDA scan was done which showed acute cholecystitis: Patient was treated with phenobarb protocol for alcohol withdrawal, IV antibiotics for cholecystitis, seen by surgery-recommended to treat conservatively with antibiotics, patient improved-currently denies any abdominal pain or nausea vomiting or any new symptoms. Switched to p.o. antibiotics. Acute my hypomagnesemia: Repleted and resolved. Added p.o. magnesium 800 mg p.o. b.i.d. Chronic Macrocytic hyperchromic anemia: Is iron studies, B12 and folate seems fine. Seen by GI, patient denies any erica bleeding. H&H stable. GI ordered genetic testing for hemochromatosis(labs pending), continue p.o. PPIs. Monitor LFT closely, strongly advised to abstain from alcohol, monitor CBC. Patient is to follow-up with GI and surgery [id number] for cholecystitis, umbilical hernia, anemia. AFib: Heart rate is controlled. As per the patient patient is off anticoagulation by his Cardiology-due to falls/thrombocytopenia. Patient was seen by PT: Recommended rehab, patient will benefit from less than 30 days rehab stay. plan: Strongly advised to abstain from alcohol. Complete Augmentin 875 p.o. b.i.d. for 2 more days. magnesium 800 mg p.o. b.i.d. Monitor CBC, CMP, magnesium levels in 1 week. Patient is to follow-up with GI and surgery [id number] for cholecystitis, umbilical hernia, elevated lft,GI ordered genetic testing for hemochromatosis(labs pending) follow up outpatient. Above management discussed with the patient in detail length he understand and in agreement with the above plan, time spent 40 minute, all question answered, staff witnessed the conversation. Time Attestation Total time managing care of this patient today: 40 mintues. Discharge Coordination Time (in mins): 40min Quality: Safe Use of Opioids Does Pt have an Active Cancer Diagnosis on the Problem List?: No Quality: Stroke Does the patient have a stroke diagnosis?: No Physical Exam Vital Signs: Vital Signs: Last Vital Signs Temp 97.9 F 08/01/24 07:23 Pulse 69 08/01/24 07:47 Resp 15 08/01/24 07:47 BP 114/78 08/01/24 07:23 Pulse Ox 95 08/01/24 07:23 O2 Del Method Nasal Cannula 08/01/24 07:23 O2 Flow Rate 1.5 08/01/24 07:23 BMI result Body Mass Index 21.9 Appearance: Alert.? Oriented X3.? cvs: [id number], [id number] . res: clear to auscultation ,no rhonchii or wheezing abd: no rebound or guarding , nt, bs present. ext pulses present , no cyanosis . neuro: axo3 , nonfocal DS: Data Data Completed and Pending Completed studies during hospitalization [Text1]: Procedures Detoxification Services for Substance Abuse Treatment (08/22/23) Labs on day of discharge: Laboratory Results - last 24 hr 07/28/24 07/31/24 09:00 08:25 Smear Path Review SEE NOTE Sodium 136 Potassium 4.5 Chloride 103 Carbon Dioxide 27 Anion Gap 11 L BUN 5 L Creatinine 0.44 L Estim Creat Clear Calc 196.4 Estimated GFR > 60 Random Glucose 82 Calcium 7.8 L Magnesium 1.6 Total Bilirubin 1.3 H AST 94 H ALT 31 Alkaline Phosphatase 425 H Total Protein 5.5 L Albumin 2.2 L Imaging Chest x-ray: Radiologist's impression: ITS Impressions Head CT 07/25/24 12:40 IMPRESSION: No acute intracranial abnormality. No fracture evident. Abdomen/Pelvis CT 07/25/24 13:31 IMPRESSION: 1. No evidence of traumatic injury to the abdomen or pelvis. 2. Marked hepatic steatosis. Cervical Spine CT 07/25/24 13:47 IMPRESSION: 1. No CT evidence of acute cervical spine fracture or injury. 2. Degenerative spondylosis and mild right convex scoliosis. 3. Paraseptal emphysematous change in the lung apices. Abdomen Ultrasound 07/25/24 15:53 IMPRESSION: 1. Gallbladder demonstrating echogenic layering sludge with a positive sonographic Haq's sign. No significant wall thickening (borderline at 3 mm) and no definite pericholecystic fluid collection. Cannot exclude acute cholecystitis. 2. No biliary dilatation. Chest X-Ray 07/26/24 08:31 IMPRESSION: No active pulmonary disease. Hepatobiliary Scan Nuclear Medicine 07/27/24 09:25 IMPRESSION: Findings consistent with cystic duct obstruction and acute cholecystitis. Discharge Plan Discharge Anticipated Discharge Date/Time: 07/31/24 12:21 Patient Disposition: Xfer SNF Discharge Diagnosis: acute cholecystitis ,elevated lft Referrals: Po,Katie Travis MD [Primary Care Provider] - 1 Week Discharge Medications: New amoxicillin-pot clavulanate 875-125 mg Tablet 1 tab PO Q12H Qty: 4 0RF magnesium oxide 400 mg (241.3 mg magnesium) Tablet 800 mg PO BIDPC Qty: 1 0RF Continued diltiazem HCl [Tiadylt ER] 300 mg capsule,extended release 24 hr 300 mg PO DAILY Qty: 90 0RF metoprolol tartrate 100 mg tablet 100 mg PO BID 90 Days Qty: 180 3RF Rx Instructions: Dose increase atorvastatin 20 mg tablet 20 mg PO BEDTIME Qty: 90 0RF Motegrity 2 mg tablet 2 mg PO DAILY Qty: 90 2RF pantoprazole 40 mg tablet,delayed release (DR/EC) 40 mg PO DAILY@0630 Qty: 30 2RF Rx Instructions: take one tablet half an hour before breakfast albuterol sulfate [Ventolin HFA] 90 mcg/actuation HFA aerosol inhaler 90 mcg inhalation Q4-6H PRN (Reason: Shortness Of Breath Or Wheezing) Qty: 8.5 0RF clonazepam [Klonopin] 1 mg tablet 1 mg PO BID PRN (Reason: Anxiety) Qty: 60 1RF digoxin 125 mcg (0.125 mg) tablet 125 mcg PO DAILY potassium chloride 20 mEq tablet extended release 20 meq PO DAILY Trelegy Ellipta 200-62.5-25 mcg blister with device 1 ea inhalation DAILY buprenorphine-naloxone 8-2 mg tablet, sublingual 1 tab sublingual TID Patient Comments: TOOK HALF A FILM THIS AM bisacodyl [Dulcolax (bisacodyl)] 5 mg tablet,delayed release (DR/EC) 10 mg PO BEDTIME Qty: 180 4RF oxygen via NC 2 l inhalation DAILY Qty: 1 0RF Discontinued magnesium oxide 500 mg capsule 500 mg PO DAILY Qty: 30 1RF Discharge Orders: Discharge Order (Routine); Ordered 08/01/24 Ordered By: Mat Santo Diet: Advance to usual diet Activity on Discharge: As tolerated Stand Alone Forms: Patient Portal Discharge page Print Language: Mohawk Care Plan Goals: as below. Health Concerns: Strongly advised to abstain from alcohol. Complete Augmentin 875 p.o. b.i.d. for 2 more days. magnesium 800 mg p.o. b.i.d. Monitor CBC, CMP, magnesium levels in 1 week. Patient is to follow-up with GI and surgery [id number] for cholecystitis, umbilical hernia, elevated lft,GI ordered genetic testing for hemochromatosis(labs pending) follow up outpatient. Plan of Treatment: as above. Assessment: as above.
[2024-08-01] MEDS: Buprenorphine/Naloxone 8/2 mg TAB.SUBL 1 TAB SUBLINGUAL (09:11)
[2024-08-01] MEDS: Amoxicillin/Potassium Clav 875 MG TABLET PO (10:52)
[2024-08-01 11:50] VITALS: BP 111/63; PULSE 62; RESP 18; TEMP 36.2; O2SAT 96
== END 2024-08-01 12:30 | disposition skilled nursing facility (03) | DRG 445 ==
LOC: HO.ED 07-26 11:39 → HO.EDOVER 07-26 11:57 → HO.IMC 07-26 16:38
PROVIDERS: Internal Medicine Gastroenterology; Nurse Practitioner Acute Care; Physician Assistant Medical; Registered Nurse Emergency; Admitting Provider Internal Medicine; Emergency Provider Emergency Medicine; PCP Internal Medicine; Visit Provider Internal Medicine
DX: K81.0 Acute cholecystitis (principal); F11.20 Opioid dependence, uncomplicated; I49.2 Junctional premature depolarization; J96.10 Chronic respiratory failure, unspecified whether with hypoxia or hypercapnia; F17.210 Nicotine dependence, cigarettes, uncomplicated; E83.51 Hypocalcemia; F10.90 Alcohol use, unspecified, uncomplicated; E83.42 Hypomagnesemia; D69.59 Other secondary thrombocytopenia; D53.9 Nutritional anemia, unspecified; E78.5 Hyperlipidemia, unspecified; Z71.6 Tobacco abuse counseling; Y90.7 Blood alcohol level of 200-239 mg/100 ml; Z20.822 Contact with and (suspected) exposure to COVID-19; Z99.81 Dependence on supplemental oxygen; Z79.899 Other long term (current) drug therapy
CPT/HCPCS: 0241U; 36415; 70450; 71045; 72125; 74177; 76705; 78226; 80048; 80053; 80307; 81003; 81256; 82248; 82550; 82607; 82728; 82746; 83540; 83690; 83735; 83880; 84484; 85025; 85027; 85610; 86850; 86900; 86901; 93005; 97162; 99285; A9537; J2470; J2543; J2560; J3411; J3475; P9047; Q9967; S9485

== ENCOUNTER → 2024-07-25 12:40 | Outpatient (BNV) | payer MEDICARE, MEDICAID, SELFPAY | PROVIDERS: Emergency Provider Emergency Medicine; PCP Internal Medicine; Visit Provider Radiology Diagnostic Radiology | DX: R10.811 Right upper quadrant abdominal tenderness (principal); S09.90XA Unspecified injury of head, initial encounter | CPT/HCPCS: 70450; 72125; 74177; 76705 ==

== ENCOUNTER → 2024-07-25 12:40 | Outpatient (BNV) | payer MEDICARE, MEDICAID, SELFPAY | PROVIDERS: Emergency Provider Emergency Medicine; PCP Internal Medicine; Visit Provider Internal Medicine Cardiovascular Disease | DX: I48.92 Unspecified atrial flutter (principal); I44.0 Atrioventricular block, first degree | CPT/HCPCS: 93010 ==

== ENCOUNTER → 2024-07-26 02:57 | Outpatient (BNV) | payer MEDICARE, MEDICAID, SELFPAY | PROVIDERS: Emergency Provider Emergency Medicine; PCP Internal Medicine; Visit Provider Internal Medicine Cardiovascular Disease | DX: I48.92 Unspecified atrial flutter (principal); I44.0 Atrioventricular block, first degree | CPT/HCPCS: 93010 ==

== ENCOUNTER → 2024-07-26 08:31 | Outpatient (BNV) | payer MEDICARE, MEDICAID, SELFPAY | PROVIDERS: Emergency Provider Emergency Medicine; PCP Internal Medicine; Visit Provider Radiology Diagnostic Radiology | DX: R05.9 Cough, unspecified (principal) | CPT/HCPCS: 71045 ==

== ENCOUNTER 2024-07-26 11:29 | Outpatient (BNV) | payer MEDICARE, MEDICAID, SELFPAY | END 2024-07-27 09:25 | PROVIDERS: Admitting Provider Internal Medicine; Emergency Provider Emergency Medicine; PCP Internal Medicine; Visit Provider Radiology Diagnostic Radiology | DX: K80.63 Calculus of gallbladder and bile duct with acute cholecystitis with obstruction (principal) | CPT/HCPCS: 78226 ==

== ENCOUNTER → 2024-07-26 11:29 | Outpatient (BNV) | payer MEDICARE, MEDICAID, SELFPAY | PROVIDERS: Admitting Provider Internal Medicine; Emergency Provider Emergency Medicine; PCP Internal Medicine; Visit Provider Nurse Practitioner Acute Care | DX: I48.3 Typical atrial flutter (principal); Z78.9 Other specified health status | CPT/HCPCS: 99223; 99232 ==

== ENCOUNTER → 2024-07-26 11:29 | Outpatient (BNV) | payer MEDICARE, MEDICAID, SELFPAY | PROVIDERS: Admitting Provider Internal Medicine; Emergency Provider Emergency Medicine; PCP Internal Medicine; Visit Provider Nurse Practitioner Psychiatric/Mental Health | DX: F10.90 Alcohol use, unspecified, uncomplicated (principal) | CPT/HCPCS: 99222 ==

== ENCOUNTER → 2024-07-26 11:29 | Outpatient (BNV) | payer MEDICARE, MEDICAID, SELFPAY | PROVIDERS: Admitting Provider Internal Medicine; Emergency Provider Emergency Medicine; PCP Internal Medicine; Visit Provider Internal Medicine Gastroenterology | DX: R74.01 Elevation of levels of liver transaminase levels (principal); K21.00 Gastro-esophageal reflux disease with esophagitis, without bleeding; K22.70 Barrett's esophagus without dysplasia; K81.0 Acute cholecystitis | CPT/HCPCS: 99222 ==

== ENCOUNTER → 2024-07-26 11:29 | Outpatient (BNV) | payer MEDICARE, MEDICAID, SELFPAY | PROVIDERS: Admitting Provider Internal Medicine; Emergency Provider Emergency Medicine; PCP Internal Medicine; Visit Provider Physician Assistant Surgical | DX: K81.0 Acute cholecystitis (principal) | CPT/HCPCS: 99222; 99232 ==

== ENCOUNTER 2024-08-11 10:15 | Outpatient (REF) | payer MEDICARE, MEDICAID, SELFPAY ==
--- OUTSIDE RECORDS SUMMARY | 2024-08-11 11:11 | XMS_ITS | Encounter Summary ---
Author Organization [facility] Address [address] [place] [address] Care Team Providers Care Public Health Worker Name Role Phone Evelyn Ibrahim MD Primary Care Provider [phone] Encounter Details Date Type Department Care Team (Late st Contact Info) Description 08/02/2024 Lab Requisition [facility] - Main Lab [address] [facility] [place] [address] May Stacy MD [address] [id number] Essential (primary) hypertension Social History Tobacco Use Types Packs/Day Years [...] on file documented as of this encounter Plan of Treatment Not on file documented as of this encounter Procedures Procedure Name Priority Date/Time Associated Diagnosis Comments COMPLETE BLOOD COUNT Routine 08/02/2024 4:51 AM EDT Essential (primary) hypertension COMPREHENSIVE METABOLIC PANEL Routine 08/02/2024 4:51 AM EDT Essential (primary) hypertension documented in this encounter Results * (ABNORMAL) Comprehensive metabolic panel (08/02/2024 4:51 AM EDT) Sodium 138 133 - 145 mmol/L LAB CHEMISTRY METHOD 08/02/2024 9:04 AM [facility] Potassium 4.0 3.5 - 5.5 mmol/L LAB CHEMISTRY METHOD 08/02/2024 9:04 AM [facility] Chloride 103 96 - 110 mmol/L LAB CHEMISTRY METHOD 08/02/2024 9:04 AM [facility] CO2 29 21 - 32 mmol/L LAB CHEMISTRY METHOD 08/02/2024 9:04 AM [facility] Anion Gap 6 3 - 11 LAB CHEMISTRY METHOD 08/02/2024 9:04 AM [facility] Glucose 73 70 - 100 mg/dL LAB CHEMISTRY METHOD 08/02/2024 9:04 AM [facility] BUN 5 5 - 25 mg/dL LAB CHEMISTRY METHOD 08/02/2024 9:04 AM [facility] Creatinine 0.38(L) 0.70 - 1.30 mg/dL LAB CHEMISTRY METHOD 08/02/2024 9:04 AM [facility] eGFR 131 >=60 mL/min/1. 73m2 LAB CHEMISTRY METHOD 08/02/2024 9:04 AM [facility] Comment:Calculation based on the Chronic Kidney Disease Epidemiology Collaboration (CKD-EPI) equation refit without adjustment for race. BUN/Creatinine Ratio 13.2 LAB CHEMISTRY METHOD 08/02/2024 9:04 AM [facility] Calcium 7.9(L) 8.5 - 10.5 mg/dL LAB CHEMISTRY METHOD 08/02/2024 9:04 AM [facility] AST (SGOT) 65(H) 10 - 42 unit/L LAB CHEMISTRY METHOD 08/02/2024 9:04 AM [facility] ALT (SGPT) 35 10 - 60 unit/L LAB CHEMISTRY METHOD 08/02/2024 9:04 AM [facility] Alkaline Phosphatase 412(H) 42 - 121 unit/L LAB CHEMISTRY METHOD 08/02/2024 9:04 AM [facility] Total Protein 5.3(L) 6.0 - 8.0 g/dL LAB CHEMISTRY METHOD 08/02/2024 9:04 AM [facility] Albumin 1.8(L) 3.2 - 5.0 g/dL LAB CHEMISTRY METHOD 08/02/2024 9:04 AM [facility] Total Bilirubin 1.0 0.0 - 1.4 mg/dL LAB CHEMISTRY METHOD 08/02/2024 9:04 AM [facility] Blood Venous blood specimen / Unknown Venipuncture / Unknown 08/02/2024 4:51 AM EDT 08/02/2024 8:03 AM EDT May Stacy MD LAB BLOOD ORDERABLES Fin al Result [facility] [address] [place] [address], [place] [phone] * (ABNORMAL) Complete blood count (08/02/2024 4:51 AM EDT) WBC 8.3 4.8 - 10.8 K/mcL LAB HEMETOLOGY METHOD 08/02/2024 9:01 AM [facility] RBC 2.40(L) 4.50 - 5.50 M/mcL LAB HEMETOLOGY METHOD 08/02/2024 9:01 AM [facility] Hemoglobin 9.1(L) 13.5 - 17.5 g/dL LAB HEMETOLOGY METHOD 08/02/2024 9:01 AM [facility] Hematocrit 28.0(L) 42.0 - 54.0 % LAB HEMETOLOGY METHOD 08/02/2024 9:01 AM [facility] MCV 114.8(H) 79.0 - 98.0 FL LAB HEMETOLOGY METHOD 08/02/2024 9:01 AM EDT [facility] MCH 37.3(H) 27.0 - 32.0 pcg LAB HEMETOLOGY METHOD 08/02/2024 9:01 AM EDT [facility] MCHC 32.5 32.0 - 37.0 g/dL LAB HEMETOLOGY METHOD 08/02/2024 9:01 AM EDT [facility] RDW 14.6 11.0 - 15.0 % LAB HEMETOLOGY METHOD 08/02/2024 9:01 AM EDT [facility] Platelets 199 130 - 400 K/mcL LAB HEMETOLOGY METHOD 08/02/2024 9:01 AM EDT [facility] MPV 11.2(H) 7.0 - 11.0 FL LAB HEMETOLOGY METHOD 08/02/2024 9:01 AM EDT [facility] NRBC 0.0 <1.0 % LAB HEMETOLOGY METHOD 08/02/2024 9:01 AM EDT [facility] NRBC Absolute 0.00 <0.10 K/mcL LAB HEMETOLOGY METHOD 08/02/2024 9:01 AM [facility] Blood Venous blood specimen / Unknown Venipuncture / Unknown 08/02/2024 4:51 AM EDT 08/02/2024 8:03 AM EDT us May Stacy MD LAB BLOOD ORDERABLES Fin al Result [facility] [address] [place] [address], documented in this encounter Visit Diagnoses Diagnosis Essential (primary) hypertension Unspecified essential hypertension documented in this encounter Care Teams Public Health Worker Relationship Specialty Start Date End Date Evelyn Ibrahim MD [address] [place] [id number] PCP - General Internal Medicine 04/11/21 documented as of this encounter
[2024-08-11 12:57] LABS: MANUAL DIFF FLAG NO
[2024-08-11 13:20] LABS: Basophils Absolute Auto 0.1 X10*3/uL (0.0-0.2); Basophils Percent Auto 1.4 % (0-2); Eosinophils Absolute Auto 0.3 X10*3/uL (0.0-0.4); Hematocrit 33.1 % (42.0-52.0); Hemoglobin 10.7 g/dl (14.0-18.0); Imm Gran Abs Auto 0.06 X10*3/uL (0.00-0.03); Imm Gran Pct Auto 0.6 % (0.0-0.4); Lymphocytes Absolute Auto 1.4 X10*3/uL (1.2-4.9); Lymphocytes Percent Auto 13.2 % (20-40); Mean Corpuscular HGB Conc 32.3 g/dl (31.0-36.0); Mean Corpuscular Hemoglobin 36.5 pg (27.0-33.0); Mean Platelet Volume 10.1 fL (9.4-12.4); Monocytes Absolute Auto 1.1 X10*3/uL (0.1-1.2); Monocytes Percent Auto 10.6 % (2-11); Neutrophils Absolute Auto 7.3 x10*3/uL (2.0-8.3); Neutrophils Percent Auto 71.2 % (45-73); Platelet Count 289 X10*3/uL (160-400); Red Blood Count 2.93 X10*6/uL (4.60-5.80); Red Cell Distribution Width 14.3 % (11.0-16.0); Reticulocyte Percent 2.7 % (0.5-1.8); White Blood Count 10.2 X10*3/uL (4.8-10.8)
[2024-08-11 13:22] LABS: Prothrombin Time 11.3 SEC (10.9-12.4)
[2024-08-11 13:43] LABS: B Type Natriuretic Peptide 247 pg/mL (<100)
[2024-08-11 13:48] LABS: Alanine Aminotransferase 19 U/L (0-40); Alkaline Phosphatase 212 U/L (39-117); Anion Gap 11 (12-20); Aspartate Amino Transferase 49 U/L (5-37); Bilirubin Total 0.7 mg/dL (0.0-1.0); Blood Urea Nitrogen 11 mg/dL (9-16); Calcium 9.1 mg/dL (8.4-10.2); Carbon Dioxide 29 mmol/L (22-29); Chloride 104 mmol/L (96-108); Estimated Glomerular Filt Rate > 60; Glucose Random 96 mg/dL (60-115); Iron 59 mcg/dL (45-160); Percent Iron Saturation 33 % (15-50); Potassium 4.7 mmol/L (3.3-5.1); Sodium 139 mmol/L (135-145); Total Iron Binding Capacity 177 mcg/dL (228-428); Total Protein 6.7 g/dL (6.5-8.0); Unsaturated Iron Binding 118 ug/dL
[2024-08-11 13:55] LABS: Ferritin 1200 ng/mL (20-250); Thyroid Stimulating Hormone 2.53 uIU/mL (0.32-4.0)
[2024-08-11 14:00] LABS: Folate 4.8 ng/mL (> or = 4.0); Vitamin B12 504 pg/mL (200-900)
== END 2024-08-11 10:16 | disposition home or self-care (01) ==
LOC: HO.HMGCLDS 10:15
PROVIDERS: PCP Internal Medicine; Referring Provider Internal Medicine Nephrology; Visit Provider Internal Medicine
DX: I48.3 Typical atrial flutter (principal)
CPT/HCPCS: 36415; 80053; 82607; 82728; 82746; 83540; 83880; 84439; 84443; 85025; 85045; 85610

== ENCOUNTER 2024-09-07 09:20 | Outpatient (REF) | payer MEDICARE, MEDICAID, SELFPAY ==
--- OUTSIDE RECORDS SUMMARY | 2024-09-07 10:39 | XMS_ITS | Encounter Summary ---
Author Organization [facility] Address [address] [place] [address] Care Team Providers Care Lemon Picker Name Role Phone Evelyn Ibrahim MD Primary Care Provider [phone] Encounter Details Date Type Department Care Team (Late st Contact Info) Description 08/02/2024 Lab Requisition [facility] - Main Lab [address] [facility] [place] [address] May Stacy MD [address] [address] Essential (primary) hypertension Social History Tobacco Use [...] mmol/L LAB CHEMISTRY METHOD 08/02/2024 9:04 AM [facility] Potassium 4.0 3.5 - 5.5 mmol/L LAB CHEMISTRY METHOD 08/02/2024 9:04 AM [facility] Chloride 103 96 - 110 mmol/L LAB CHEMISTRY METHOD 08/02/2024 9:04 AM [facility] CO2 29 21 - 32 mmol/L LAB CHEMISTRY METHOD 08/02/2024 9:04 AM [facility] Anion Gap 6 3 - 11 LAB CHEMISTRY METHOD 08/02/2024 9:04 AM [facility] Glucose 73 70 - 100 mg/dL LAB CHEMISTRY METHOD 08/02/2024 9:04 AM [facility] BUN 5 5 - 25 mg/dL LAB CHEMISTRY METHOD 08/02/2024 9:04 AM [facility] Creatinine 0.38(L) 0.70 - 1.30 mg/dL LAB CHEMISTRY METHOD 08/02/2024 9:04 AM [facility] eGFR 131 >=60 mL/min/1. 73m2 LAB CHEMISTRY METHOD 08/02/2024 9:04 AM [facility] Comment:Calculation based on the Chronic Kidney Disease Epidemiology Collaboration (CKD-EPI) equation refit without adjustment for race. BUN/Creatinine Ratio 13.2 LAB CHEMISTRY METHOD 08/02/2024 9:04 AM [facility] Calcium 7.9(L) 8.5 - 10.5 mg/dL LAB CHEMISTRY METHOD 08/02/2024 9:04 AM [facility] AST (SGOT) 65(H) 10 - 42 unit/L LAB CHEMISTRY METHOD 08/02/2024 9:04 AM [facility] ALT (SGPT) 35 10 - 60 unit/L LAB CHEMISTRY METHOD 08/02/2024 9:04 AM [facility] Alkaline Phosphatase 412(H) 42 - 121 unit/L LAB CHEMISTRY METHOD 08/02/2024 9:04 AM [facility] Total Protein 5.3(L) 6.0 - 8.0 g/dL LAB CHEMISTRY METHOD 08/02/2024 9:04 AM [facility] Albumin 1.8(L) 3.2 - 5.0 g/dL LAB CHEMISTRY METHOD 08/02/2024 9:04 AM [facility] Total Bilirubin 1.0 0.0 - 1.4 mg/dL LAB CHEMISTRY METHOD 08/02/2024 9:04 AM [facility] Blood Venous blood specimen / Unknown Venipuncture / Unknown 08/02/2024 4:51 AM EDT 08/02/2024 8:03 AM EDT May Stacy MD LAB BLOOD ORDERABLES Fin al Result [facility] [address] [place] [address], [place] [phone] * (ABNORMAL) Complete blood count (08/02/2024 4:51 AM EDT) WBC 8.3 4.8 - 10.8 K/mcL LAB HEMETOLOGY METHOD 08/02/2024 9:01 AM [facility] RBC 2.40(L) 4.50 - 5.50 M/mcL LAB HEMETOLOGY METHOD 08/02/2024 9:01 AM [facility] Hemoglobin 9.1(L) 13.5 - 17.5 g/dL LAB HEMETOLOGY METHOD 08/02/2024 9:01 AM [facility] Hematocrit 28.0(L) 42.0 - 54.0 % LAB HEMETOLOGY METHOD 08/02/2024 9:01 AM [facility] MCV 114.8(H) 79.0 - 98.0 FL LAB HEMETOLOGY METHOD 08/02/2024 9:01 AM EDT [facility] MCH 37.3(H) 27.0 - 32.0 pcg LAB HEMETOLOGY METHOD 08/02/2024 9:01 AM EDT [facility] MCHC 32.5 32.0 - 37.0 g/dL LAB HEMETOLOGY METHOD 08/02/2024 9:01 AM EDT [facility] RDW 14.6 11.0 - 15.0 % LAB HEMETOLOGY METHOD 08/02/2024 9:01 AM EDT [facility] Platelets 199 130 - 400 K/mcL LAB HEMETOLOGY METHOD 08/02/2024 9:01 AM EDT [facility] MPV 11.2(H) 7.0 - 11.0 FL LAB HEMETOLOGY METHOD 08/02/2024 9:01 AM EDT [facility] NRBC 0.0 <1.0 % LAB HEMETOLOGY METHOD 08/02/2024 9:01 AM EDT [facility] NRBC Absolute 0.00 <0.10 K/mcL LAB HEMETOLOGY METHOD 08/02/2024 9:01 AM [facility] Blood Venous blood specimen / Unknown Venipuncture / Unknown 08/02/2024 4:51 AM EDT 08/02/2024 8:03 AM EDT us May Stacy MD LAB BLOOD ORDERABLES Fin al Result [facility] [address] [place] [address], documented in this encounter Visit Diagnoses Diagnosis Essential (primary) hypertension Unspecified essential hypertension documented in this encounter Care Teams Lemon Picker Relationship Specialty Start Date End Date Evelyn Ibrahim MD [address] [place] [id number] PCP - General Internal Medicine 04/11/21 documented as of this encounter
[2024-09-07 14:27] LABS: Appearance Urine Clear; Glucose Urine UA Negative (Negative); PH 7.0 (5.0-9.0); Specific Gravity - Urine 1.020 (1.005-1.025); UMIC TRIGGER UACC YES
== END 2024-09-07 09:21 | disposition home or self-care (01) ==
LOC: HO.HMGCLNP 09:20
PROVIDERS: Internal Medicine; Visit Provider Internal Medicine Nephrology
DX: R30.0 Dysuria (principal); I48.3 Typical atrial flutter
CPT/HCPCS: 81001

== ENCOUNTER 2024-09-08 11:07 | Outpatient (AMB) | payer MEDICARE, MEDICAID, SELFPAY ==
[2024-09-08 11:09] VITALS: BP 122/74; PULSE 90; TEMP 36.3; O2SAT 92; BMI 20.5
--- NOTE | 2024-09-08 11:09 | A.OFFPC_ITS ---
Vital Signs 09/08/24 11:09 Height 6 ft Weight 151 lb 4 oz BMI 20.5 BP 122/74 Blood Pressure Location Lt brachial Position Sitting Pulse 90 Pulse Source Pulse Oximeter Temp 97.3 F Temp Source Temporal Artery Scan Pulse Oximetry (%) 92 Oxygen Delivery Method Nasal Cannula Oxygen Flow Rate 2 Intake Visit Reasons: [facility] 08/11 Allergies morphine Allergy (Severe, Verified 09/08/24 11:12) Anaphylaxis acetaminophen (From Tylenol) Allergy (Intermediate, Verified 09/08/24 11:12) Gastrointestinal Upset Tobacco use date assessed: 09/08/24 Dental Screening Dental Screen Date: 05/02/24 Did you have a dental visit in the last 12 months?: No Did you have a dental problem in the last 6 months where you did not have access to dental care?: No Was dental information given to patient?: Patient declined HPI HPI Comments History of Present Illness Details 54 y/o Male patient who presents to the clinic today for HDF. Past medical history of OH, COPD on home O2 2L, Afib/Aflutter, smoker, HLD, AUD, DAREK, AGUSTÍN, Falls, and umbilical hernia. [place] [facility] [place] an evaluation and treatment of Alcohol use disorder and Acute Cholecystitis. Surgery was consulted in patient and recommended to treat conservatively with antibiotics. Patient was told to follow-up with GI and surgery outpatient for cholecystitis, umbilical hernia, and elevated LFTs. Patient was [facility]. 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 Mother Chronic a-fib Sister Chronic a-fib Breast cancer Ovarian cancer Social History (Reviewed 09/08/24 @ 11:13 by MARCUS Mireles Household Members: Significant Other Housing: Apartment Are you a primary urgent care physician assistant to a significant other at home: No Do you presently have visiting nurse or other home services: No Alcohol intake: current Alcohol intake frequency: 3 or more drinks per day Alcohol type: hard liquor Comment: REFUSING BED ALARM Patient Tobacco Use Status: Current everyday Tobacco user Tobacco use type: Cigarette Cigarette Packs Per Day: 0.5 Cigarettes Per Day: 10 e-Cigarette/Vaping Use: Never Used Second Hand Smoke Exposure: Yes Advance Directives Date on File: 07/28/22 service: No Current occupational status: disabled Cognitive needs: No Hearing needs: No Vision needs: Yes Questionnaire PHQ-9 Over the last 2 weeks, how often have you been bothered by any of the following problems? 1. Little interest or pleasure in doing things: not at all 2. Feeling down, depressed, or hopeless: not at all 3. Trouble falling or staying asleep, or sleeping too much: not at all 4. Feeling tired or having little energy: not at all 5. Poor appetite or overeating: not at all 6. Feeling bad about yourself - or that you are a failure or have let yourself or your family down: not at all 7. Trouble concentrating on things, such as reading the newspaper or watching television: not at all 8. Moving or speaking so slowly that other people could have noticed. Or the opposite - being so fidgety or restless that you have been moving around a lot more than usual: not at all 9. Thoughts that you would be better off or of hurting yourself in some way: not at all Total score: 0 Depression Screening Interpretation: Negative Depression Screening Done: Yes Source: Developed by Drs. Uzair Napoles, Coretta Bernal, Saul Resendiz and colleagues, with an educational mabel from [employer]. Thrive Questionnaire Date Thrive assessed: 07/27/24 I am a: Patient What is your living situation today?: I have a steady place to live Within the past 12 months, did the food you bought not last and you didn't have the money to get more?: Never true Within the past 12 months, did you worry whether your food would run out before you got money to buy more?: Never true Do you have trouble paying for medicines?: No Do you have trouble getting transportation to medical appointments?: No Do you have trouble paying your heating and electricity bill?: No Do you have trouble taking care of your child, family member or friend?: No Do you have trouble with day-to-day activities such as bathing, preparing meals, shopping, managing finances, etc.?: No Are you currently unemployed and looking for a job?: No Are you interested in more education?: No Please select the resources that you would like help with: None Currently or been in a relationship where the following occur: No concerns reported THRIVE Score: 0 AUDIT C Alcohol Use Questionnaire (AUDIT-C) 1. How often do you have a drink containing alcohol?: 4 or more times a week 2. How many drinks containing alcohol do you have on a typical day when you are drinking?: 3 or 4 3. How often do you have six or more drinks on one occasion?: Less than monthly Total Score: 6 Score Reviewed/Action Taken: Yes AGUSTÍN-7 AMB Questionnaire AGUSTÍN-7 Date AGUSTÍN - 7 assessed: 04/04/24 Feeling nervous, anxious, or on edge: 0 = Not at all Not being able to stop or control worryin = Not at all Worrying too much about different things: 0 = Not at all Trouble relaxin = Not at all Being so restless that it is hard to sit still: 0 = Not at all Becoming easily annoyed or irritable: 0 = Not at all Feeling afraid as if something awful might happen: 0 = Not at all Total AGUSTÍN-7 score (0-4 normal; 5-9 mild; 10-14 moderate; 15-21 severe): 0 Source: Developed by Drs. Uzair Napoles, Coretta Bernal, Saul Resendiz and colleagues, with an educational mabel from [employer]. Review of Systems Const All systems reviewed & are unremarkable except as noted in HPI and below Physical exam (Primary Care) Vital Signs: Last Vital Signs Temp 97.3 F 09/08/24 11:09 Pulse 90 09/08/24 11:09 BP 122/74 09/08/24 11:09 Pulse Ox 92 09/08/24 11:09 Oxygen Delivery Method Nasal Cannula 09/08/24 11:09 Oxygen Flow Rate 2 09/08/24 11:09 BMI result Body Mass Index 20.5 Tobacco/Smoking Status: Tobacco use Status Tobacco use date assessed 09/08/24 09/08/24 11:16 Patient Tobacco Use Status Current everyday Tobacco 09/08/24 11:16 Tobacco use type Cigarette 09/08/24 11:16 e-Cigarette/Vaping Use Never Used 09/08/24 11:16 PHQ-9: PHQ-9 Score PHQ-9: Total score 0 09/08/24 11:16 Depression Screening Interpretation: Negative Thrive Assessment: Date of Thrive Assessment Date Thrive assessed 07/27/24 09/08/24 11:16 Currently or been in a relationship where the following occur: No concerns reported Const General: no acute distress Orientation/consciousness: patient oriented x3 Resp Other: On 2L Oxygen NC Effort & Inspection: normal respiratory effort and Actively coughing Cardio Heart sounds: S1 normal heart sound present and S2 normal heart sound present Neuro General: patient oriented x3, gait normal and moves all extremities Psych Speech and movement: Normal speech and movement present Coding Level of Care Code Est Pt Level 4 (02932) Diagnoses Acute cholecystitis K81.0 Alcohol abuse F10.10 Time Spent (min) 20 Assessment & Plan Assessment & Plan (1) Acute cholecystitis: Code(s): K81.0 - Acute cholecystitis Category: Medical Plan: Managed by GI. (2) Alcohol abuse: Code(s): F10.10 - Alcohol abuse, uncomplicated Category: Medical Plan: Managed by [employer].
--- OUTSIDE RECORDS SUMMARY | 2024-09-08 11:46 | XMS_ITS | Encounter Summary ---
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 Name Role Phone Evelyn Ibrahim MD Primary Care Provider [phone] Encounter Details Date Type Department Care Team (Late st Contact Info) Description 08/02/2024 Lab Requisition [facility] - Main Lab [address] [facility] [place] [address] May Stacy MD [address] [address] Essential (primary) hypertension Social History Tobacco Use [...] mmol/L LAB CHEMISTRY METHOD 08/02/2024 9:04 AM [facility] Potassium 4.0 3.5 - 5.5 mmol/L LAB CHEMISTRY METHOD 08/02/2024 9:04 AM [facility] Chloride 103 96 - 110 mmol/L LAB CHEMISTRY METHOD 08/02/2024 9:04 AM [facility] CO2 29 21 - 32 mmol/L LAB CHEMISTRY METHOD 08/02/2024 9:04 AM [facility] Anion Gap 6 3 - 11 LAB CHEMISTRY METHOD 08/02/2024 9:04 AM [facility] Glucose 73 70 - 100 mg/dL LAB CHEMISTRY METHOD 08/02/2024 9:04 AM [facility] BUN 5 5 - 25 mg/dL LAB CHEMISTRY METHOD 08/02/2024 9:04 AM [facility] Creatinine 0.38(L) 0.70 - 1.30 mg/dL LAB CHEMISTRY METHOD 08/02/2024 9:04 AM [facility] eGFR 131 >=60 mL/min/1. 73m2 LAB CHEMISTRY METHOD 08/02/2024 9:04 AM [facility] Comment:Calculation based on the Chronic Kidney Disease Epidemiology Collaboration (CKD-EPI) equation refit without adjustment for race. BUN/Creatinine Ratio 13.2 LAB CHEMISTRY METHOD 08/02/2024 9:04 AM [facility] Calcium 7.9(L) 8.5 - 10.5 mg/dL LAB CHEMISTRY METHOD 08/02/2024 9:04 AM [facility] AST (SGOT) 65(H) 10 - 42 unit/L LAB CHEMISTRY METHOD 08/02/2024 9:04 AM [facility] ALT (SGPT) 35 10 - 60 unit/L LAB CHEMISTRY METHOD 08/02/2024 9:04 AM [facility] Alkaline Phosphatase 412(H) 42 - 121 unit/L LAB CHEMISTRY METHOD 08/02/2024 9:04 AM [facility] Total Protein 5.3(L) 6.0 - 8.0 g/dL LAB CHEMISTRY METHOD 08/02/2024 9:04 AM [facility] Albumin 1.8(L) 3.2 - 5.0 g/dL LAB CHEMISTRY METHOD 08/02/2024 9:04 AM [facility] Total Bilirubin 1.0 0.0 - 1.4 mg/dL LAB CHEMISTRY METHOD 08/02/2024 9:04 AM [facility] Blood Venous blood specimen / Unknown Venipuncture / Unknown 08/02/2024 4:51 AM EDT 08/02/2024 8:03 AM EDT May Stacy MD LAB BLOOD ORDERABLES Fin al Result [facility] [address] [place] [address], [place] [phone] * (ABNORMAL) Complete blood count (08/02/2024 4:51 AM EDT) WBC 8.3 4.8 - 10.8 K/mcL LAB HEMETOLOGY METHOD 08/02/2024 9:01 AM [facility] RBC 2.40(L) 4.50 - 5.50 M/mcL LAB HEMETOLOGY METHOD 08/02/2024 9:01 AM [facility] Hemoglobin 9.1(L) 13.5 - 17.5 g/dL LAB HEMETOLOGY METHOD 08/02/2024 9:01 AM [facility] Hematocrit 28.0(L) 42.0 - 54.0 % LAB HEMETOLOGY METHOD 08/02/2024 9:01 AM [facility] MCV 114.8(H) 79.0 - 98.0 FL LAB HEMETOLOGY METHOD 08/02/2024 9:01 AM EDT [facility] MCH 37.3(H) 27.0 - 32.0 pcg LAB HEMETOLOGY METHOD 08/02/2024 9:01 AM EDT [facility] MCHC 32.5 32.0 - 37.0 g/dL LAB HEMETOLOGY METHOD 08/02/2024 9:01 AM EDT [facility] RDW 14.6 11.0 - 15.0 % LAB HEMETOLOGY METHOD 08/02/2024 9:01 AM EDT [facility] Platelets 199 130 - 400 K/mcL LAB HEMETOLOGY METHOD 08/02/2024 9:01 AM EDT [facility] MPV 11.2(H) 7.0 - 11.0 FL LAB HEMETOLOGY METHOD 08/02/2024 9:01 AM EDT [facility] NRBC 0.0 <1.0 % LAB HEMETOLOGY METHOD 08/02/2024 9:01 AM EDT [facility] NRBC Absolute 0.00 <0.10 K/mcL LAB HEMETOLOGY METHOD 08/02/2024 9:01 AM [facility] Blood Venous blood specimen / Unknown Venipuncture / Unknown 08/02/2024 4:51 AM EDT 08/02/2024 8:03 AM EDT us May Stacy MD LAB BLOOD ORDERABLES Fin al Result [facility] [address] [place] [address], documented in this encounter Visit Diagnoses Diagnosis Essential (primary) hypertension Unspecified essential hypertension documented in this encounter Care Teams Truck Operator Relationship Specialty Start Date End Date Evelyn Ibrahim MD [address] [place] [id number] PCP - General Internal Medicine 04/11/21 documented as of this encounter
== END 2024-09-08 11:35 | disposition home or self-care (01) ==
LOC: HO.HMCH 11:07
PROVIDERS: PCP Internal Medicine; Visit Provider Nurse Practitioner Family
DX: K81.0 Acute cholecystitis (principal); F10.10 Alcohol abuse, uncomplicated

== ENCOUNTER → 2024-09-08 11:07 | Outpatient (BNVA) | payer MEDICARE, MEDICAID, SELFPAY | PROVIDERS: PCP Internal Medicine; Visit Provider Nurse Practitioner Family | DX: K81.0 Acute cholecystitis (principal); F10.10 Alcohol abuse, uncomplicated | CPT/HCPCS: 99212 ==

== ENCOUNTER 2024-09-18 14:06 | Outpatient (AMB) | payer MEDICARE, MEDICAID, SELFPAY ==
[2024-09-18 14:13] VITALS: BP 124/72; PULSE 81; TEMP 36.3; O2SAT 93; BMI 20.5
--- NOTE | 2024-09-18 14:13 | A.OFFPC_ITS ---
Vital Signs 09/18/24 14:13 Height 6 ft Weight 151 lb BMI 20.5 BP 124/72 Blood Pressure Location Lt brachial Position Sitting Pulse 81 Pulse Source Pulse Oximeter Temp 97.3 F Temp Source Temporal Artery Scan Pulse Oximetry (%) 93 Oxygen Delivery Method Nasal Cannula Oxygen Flow Rate 2 Intake Visit Reasons: leg and feet swollen Accompanied by: Friend Allergies morphine Allergy (Severe, Verified 09/18/24 14:17) Anaphylaxis acetaminophen (From Tylenol) Allergy (Intermediate, Verified 09/18/24 14:17) Gastrointestinal Upset Medication List - Last Reconciled 09/18/24 by Katie Collier MD albuterol sulfate 90 mcg/actuation (Ventolin HFA) 90 mcg inhalation Q4-6H PRN atorvastatin 20 mg PO BEDTIME bisacodyl (Dulcolax (bisacodyl)) 10 mg (2 x 5 mg) PO BEDTIME buprenorphine-naloxone 8-2 mg 1 tab sublingual TID clonazepam (Klonopin) 1 mg PO BID PRN digoxin 125 mcg PO DAILY diltiazem HCl ER (Tiadylt ER) 300 mg PO DAILY dapzhlkmeyk-lgivzxmpq-zsabfrtn 200-62.5-25 mcg (Trelegy Ellipta) 1 ea inhalation DAILY magnesium oxide 400 mg PO BIDPC 30 days metoprolol tartrate 100 mg PO BID 90 days pantoprazole 40 mg PO DAILY@0630 [portable oxygen via [place] As directed] potassium chloride ER 20 mEq PO DAILY prucalopride (Motegrity) 2 mg PO DAILY Tobacco use date assessed: 09/18/24 Dental Screening Dental Screen Date: 05/02/24 Did you have a dental visit in the last 12 months?: No Did you have a dental problem in the last 6 months where you did not have access to dental care?: No Was dental information given to patient?: Patient has dentist [facility] Medical History Alcohol use disorder Hypomagnesemia Alcohol use Substance abuse in family Back pain Constipation Bipolar 1 disorder SOB (shortness of breath) Afib Myocardial infarction Tubular adenoma 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 Mother Chronic a-fib Sister Chronic a-fib Breast cancer Ovarian cancer Social History Household Members: Significant Other Housing: Apartment Are you a primary child care sitter to a significant other at home: No Do you presently have visiting nurse or other home services: No Alcohol intake: current Alcohol intake frequency: 3 or more drinks per day Alcohol type: hard liquor Comment: REFUSING BED ALARM Patient Tobacco Use Status: Current everyday Tobacco user Tobacco use type: Cigarette Cigarette Packs Per Day: 0.5 Cigarettes Per Day: 10 e-Cigarette/Vaping Use: Never Used Second Hand Smoke Exposure: Yes Advance Directives Date on File: 07/28/22 service: No Current occupational status: disabled Cognitive needs: No Hearing needs: No Vision needs: Yes Questionnaire PHQ-9 Over the last 2 weeks, how often have you been bothered by any of the following problems? 1. Little interest or pleasure in doing things: not at all 2. Feeling down, depressed, or hopeless: not at all 3. Trouble falling or staying asleep, or sleeping too much: not at all 4. Feeling tired or having little energy: not at all 5. Poor appetite or overeating: not at all 6. Feeling bad about yourself - or that you are a failure or have let yourself or your family down: not at all 7. Trouble concentrating on things, such as reading the newspaper or watching television: not at all 8. Moving or speaking so slowly that other people could have noticed. Or the opposite - being so fidgety or restless that you have been moving around a lot more than usual: not at all 9. Thoughts that you would be better off or of hurting yourself in some way: not at all Total score: 0 Depression Screening Interpretation: Negative Depression Screening Done: Yes Source: Developed by Drs. Uzair Napoles, Coretta Bernal, Saul Resendiz and colleagues, with an educational mabel from [employer]. Thrive Questionnaire Date Thrive assessed: 07/27/24 I am a: Patient What is your living situation today?: I have a steady place to live Within the past 12 months, did the food you bought not last and you didn't have the money to get more?: Never true Within the past 12 months, did you worry whether your food would run out before you got money to buy more?: Never true Do you have trouble paying for medicines?: No Do you have trouble getting transportation to medical appointments?: No Do you have trouble paying your heating and electricity bill?: No Do you have trouble taking care of your child, family member or friend?: No Do you have trouble with day-to-day activities such as bathing, preparing meals, shopping, managing finances, etc.?: No Are you currently unemployed and looking for a job?: No Are you interested in more education?: No Please select the resources that you would like help with: None Currently or been in a relationship where the following occur: No concerns reported THRIVE Score: 0 AUDIT C Alcohol Use Questionnaire (AUDIT-C) 1. How often do you have a drink containing alcohol?: 4 or more times a week 2. How many drinks containing alcohol do you have on a typical day when you are drinking?: 3 or 4 3. How often do you have six or more drinks on one occasion?: Less than monthly Total Score: 6 Score Reviewed/Action Taken: Yes AGUSTÍN-7 AMB Questionnaire AGUSTÍN-7 Date AGUSTÍN - 7 assessed: 04/04/24 Feeling nervous, anxious, or on edge: 0 = Not at all Not being able to stop or control worryin = Not at all Worrying too much about different things: 0 = Not at all Trouble relaxin = Not at all Being so restless that it is hard to sit still: 0 = Not at all Becoming easily annoyed or irritable: 0 = Not at all Feeling afraid as if something awful might happen: 0 = Not at all Total AGUSTÍN-7 score (0-4 normal; 5-9 mild; 10-14 moderate; 15-21 severe): 0 Source: Developed by Drs. Uzair Napoles, Coretta Bernal, Saul Resendiz and colleagues, with an educational mabel from [employer]. Physical exam (Primary Care) Vital Signs: Last Vital Signs Temp 97.3 F 09/18/24 14:13 Pulse 81 09/18/24 14:13 BP 124/72 09/18/24 14:13 Pulse Ox 93 09/18/24 14:13 Oxygen Delivery Method Nasal Cannula 09/18/24 14:13 Oxygen Flow Rate 2 09/18/24 14:13 BMI result Body Mass Index 20.5 Tobacco/Smoking Status: Tobacco use Status Tobacco use date assessed 09/18/24 09/18/24 14:19 Patient Tobacco Use Status Current everyday Tobacco 09/18/24 14:19 Tobacco use type Cigarette 09/18/24 14:19 e-Cigarette/Vaping Use Never Used 09/18/24 14:19 PHQ-9: PHQ-9 Score PHQ-9: Total score 0 09/18/24 14:29 Depression Screening Interpretation: Negative Thrive Assessment: Date of Thrive Assessment Date Thrive assessed 07/27/24 09/18/24 14:19 Currently or been in a relationship where the following occur: No concerns reported Const General: alert; No acute distress Eyes Conjunctivae: conjunctivae normal Resp Auscultation: clear to auscultation bilaterally Cardio Rate: regular rate Rhythm: regular rhythm GI Inspection: Yes normal to inspection Coding Level of Care Code Est Pt Level 4 (78240) Complex EM visit Add On G2211 Diagnoses Alcohol abuse F10.10 Substance abuse F19.10 Afib I48.91 Hypertension I10 Hyperlipidemia E78.5 Acute cholecystitis K81.0 COPD (chronic obstructive pulmonary disease) J44.9 Tobacco abuse Z72.0 Assessment & Plan Assessment & Plan (1) Alcohol abuse: Code(s): F10.10 - Alcohol abuse, uncomplicated Category: Social Hx Plan: Patient is strongly advised to refrain/abstain from alcohol (2) Substance abuse: Code(s): F19.10 - Other psychoactive substance abuse, uncomplicated Category: Medical Plan: Strongly advised to stop substance abuse! (3) Afib: Code(s): I48.91 - Unspecified atrial fibrillation Category: Medical Plan: Stop alcohol, on digoxin/diltiazem and metoprolol twice a day 100 mg (4) Hypertension: Code(s): I10 - Essential (primary) hypertension Category: Medical Plan: Continue with blood pressure medication. Decrease salt intake and exercise on diltiazem 300 mg once a day metoprolol 100 mg twice a day (5) Hyperlipidemia: Code(s): E78.5 - Hyperlipidemia, unspecified Category: Medical Plan: Avoid fried foods, chicken skin, eggs, butter margarine, pastries and meat. Be it pork or beef they have a lot of cholesterol on atorvastatin 20 mg once a day (6) Acute cholecystitis: Code(s): K81.0 - Acute cholecystitis Category: Medical Plan: Low-fat diet and exercise (7) COPD (chronic obstructive pulmonary disease): Code(s): J44.9 - Chronic obstructive pulmonary disease, unspecified Category: Medical Plan: Continues to use the inhaler albuterol and Trelegy (8) Tobacco abuse: Code(s): Z72.0 - Tobacco use Category: Medical Plan: Strongly advised to stop smoking!! Plan History of Present Illness The patient is a 54-year-old male presenting with an acute problem related to generalized anxiety disorder. The patient has a history of hypercholesterolemia, managed with atorvastatin 20 mg once daily, and is advised to follow a low-fat diet and exercise regimen. Hypertension is managed with diltiazem 300 mg once daily and metoprolol 100 mg twice daily. The patient has asthma and continues to use albuterol and Trelegy inhalers. The patient has a history of atrial fibrillation and is currently on digoxin and diltiazem. The patient has a history of polysubstance abuse, including alcohol, and is strongly advised to abstain from alcohol and substance use. The patient reports ongoing alcohol consumption and smoking, despite being advised to stop. The patient has anemia with a hemoglobin level of 10.7 g/dL, noted in the last blood work on August 11. Iron levels are high, and liver enzymes are elevated, indicating fatty liver disease. The patient reports a history of cataracts, with the left eye experiencing blurriness. Health Maintenance - Advised to follow a low-fat diet and exercise regimen for hypercholesterolemia management - Strongly advised to abstain from alcohol and substance use - Strongly advised to stop smoking Social History - Substance Use: Reports ongoing alcohol consumption and smoking despite being advised to stop - Exercise: Attempts to walk and stretch despite difficulties Review of Systems - Cardiovascular: Reports swelling in legs, denies pain but notes tightness - Gastrointestinal: Reports bloating and persistent abdominal distension - Ophthalmologic: Reports blurriness in the left eye Physical Exam - Cardiovascular: Regular heart rhythm noted during auscultation Results - Labs: Hemoglobin 10.7 g/dL, elevated liver enzymes, high iron levels - Imaging: CAT scan indicating fatty liver disease Plan The patient is advised to continue atorvastatin 20 mg daily for hypercholesterolemia and maintain a low-fat diet with regular exercise. Hypertension management includes diltiazem 300 mg once daily and metoprolol 100 mg twice daily. For asthma, the patient should continue using albuterol and Trelegy inhalers as needed. Atrial fibrillation management involves digoxin and diltiazem, with a follow-up recommended with cardiology. The patient is strongly advised to abstain from alcohol and substance use, with a recommendation to seek support for cessation. Smoking cessation is also strongly advised. Anemia management includes monitoring hemoglobin levels, as iron levels are already high. Liver function should be monitored due to elevated enzymes and fatty liver disease. The patient should follow up with ophthalmology for cataract evaluation and management. Patient was informed and verbally consented to the use of an ambient scribe for clinic note documentation during this visit. Discussion Notes During the visit, I discussed with the patient the importance of managing hypercholesterolemia through medication and lifestyle changes, including a low- fat diet and regular exercise. We reviewed the management of hypertension with diltiazem and metoprolol, and the need for regular monitoring of blood pressure. I emphasized the necessity of continuing asthma medications and the importance of follow-up with cardiology for atrial fibrillation management. The patient was strongly advised to abstain from alcohol and substance use, and to seek support for cessation. We discussed the need for monitoring anemia and liver function, given the elevated liver enzymes and fatty liver disease. I recommended follow-up with ophthalmology for cataract evaluation. Patient Instructions - Continue taking atorvastatin 20 mg daily. - Follow a low-fat diet and exercise regularly. - Take diltiazem 300 mg once daily and metoprolol 100 mg twice daily for blood pressure management. - Use albuterol and Trelegy inhalers as needed for asthma. - Abstain from alcohol and substance use; seek support if needed. - Stop smoking. - Monitor hemoglobin levels and liver function. - Follow up with ophthalmology for cataract evaluation. Orders: Orders Complete Blood Count Auto Diff Today J44.9 - Chronic obstructive pulmonary disease, unspecified Magnesium Today J44.9 - Chronic obstructive pulmonary disease, unspecified Comprehensive Met. Panel Today J44.9 - Chronic obstructive pulmonary disease, unspecified Free T4 (Free Thyroxine) Today J44.9 - Chronic obstructive pulmonary disease, unspecified Vitamin B12 and Folate Today J44.9 - Chronic obstructive pulmonary disease, unspecified Thyroid Stimulating Hormone Today J44.9 - Chronic obstructive pulmonary disease, unspecified Medications: Changed From magnesium oxide 800 mg (2 x 400 mg (241.3 mg magnesium)) PO BIDPC 1 tab 0RF To magnesium oxide 400 mg PO BIDPC 60 tabs 0RF 30 days Refilled magnesium oxide 800 mg (2 x 400 mg (241.3 mg magnesium)) PO BIDPC 1 tab 0RF
--- OUTSIDE RECORDS SUMMARY | 2024-09-18 14:58 | XMS_ITS | Encounter Summary ---
Author Organization [facility] Address [address] [place] [address] Care Team Providers Care Apartment Leasing Consultant Name Role Phone Evelyn Ibrahim MD Primary Care Provider [phone] Encounter Details Date Type Department Care Team (Late st Contact Info) Description 08/02/2024 Lab Requisition [facility] - Main Lab [address] [facility] [place] [address] May Stacy MD [address] [address] Essential (primary) hypertension Social History Tobacco Use [...] mmol/L LAB CHEMISTRY METHOD 08/02/2024 9:04 AM [facility] Potassium 4.0 3.5 - 5.5 mmol/L LAB CHEMISTRY METHOD 08/02/2024 9:04 AM [facility] Chloride 103 96 - 110 mmol/L LAB CHEMISTRY METHOD 08/02/2024 9:04 AM [facility] CO2 29 21 - 32 mmol/L LAB CHEMISTRY METHOD 08/02/2024 9:04 AM [facility] Anion Gap 6 3 - 11 LAB CHEMISTRY METHOD 08/02/2024 9:04 AM [facility] Glucose 73 70 - 100 mg/dL LAB CHEMISTRY METHOD 08/02/2024 9:04 AM [facility] BUN 5 5 - 25 mg/dL LAB CHEMISTRY METHOD 08/02/2024 9:04 AM [facility] Creatinine 0.38(L) 0.70 - 1.30 mg/dL LAB CHEMISTRY METHOD 08/02/2024 9:04 AM [facility] eGFR 131 >=60 mL/min/1. 73m2 LAB CHEMISTRY METHOD 08/02/2024 9:04 AM [facility] Comment:Calculation based on the Chronic Kidney Disease Epidemiology Collaboration (CKD-EPI) equation refit without adjustment for race. BUN/Creatinine Ratio 13.2 LAB CHEMISTRY METHOD 08/02/2024 9:04 AM [facility] Calcium 7.9(L) 8.5 - 10.5 mg/dL LAB CHEMISTRY METHOD 08/02/2024 9:04 AM [facility] AST (SGOT) 65(H) 10 - 42 unit/L LAB CHEMISTRY METHOD 08/02/2024 9:04 AM [facility] ALT (SGPT) 35 10 - 60 unit/L LAB CHEMISTRY METHOD 08/02/2024 9:04 AM [facility] Alkaline Phosphatase 412(H) 42 - 121 unit/L LAB CHEMISTRY METHOD 08/02/2024 9:04 AM [facility] Total Protein 5.3(L) 6.0 - 8.0 g/dL LAB CHEMISTRY METHOD 08/02/2024 9:04 AM [facility] Albumin 1.8(L) 3.2 - 5.0 g/dL LAB CHEMISTRY METHOD 08/02/2024 9:04 AM [facility] Total Bilirubin 1.0 0.0 - 1.4 mg/dL LAB CHEMISTRY METHOD 08/02/2024 9:04 AM [facility] Blood Venous blood specimen / Unknown Venipuncture / Unknown 08/02/2024 4:51 AM EDT 08/02/2024 8:03 AM EDT May Stacy MD LAB BLOOD ORDERABLES Fin al Result [facility] [address] [place] [address], [place] [phone] * (ABNORMAL) Complete blood count (08/02/2024 4:51 AM EDT) WBC 8.3 4.8 - 10.8 K/mcL LAB HEMETOLOGY METHOD 08/02/2024 9:01 AM [facility] RBC 2.40(L) 4.50 - 5.50 M/mcL LAB HEMETOLOGY METHOD 08/02/2024 9:01 AM [facility] Hemoglobin 9.1(L) 13.5 - 17.5 g/dL LAB HEMETOLOGY METHOD 08/02/2024 9:01 AM [facility] Hematocrit 28.0(L) 42.0 - 54.0 % LAB HEMETOLOGY METHOD 08/02/2024 9:01 AM [facility] MCV 114.8(H) 79.0 - 98.0 FL LAB HEMETOLOGY METHOD 08/02/2024 9:01 AM EDT [facility] MCH 37.3(H) 27.0 - 32.0 pcg LAB HEMETOLOGY METHOD 08/02/2024 9:01 AM EDT [facility] MCHC 32.5 32.0 - 37.0 g/dL LAB HEMETOLOGY METHOD 08/02/2024 9:01 AM EDT [facility] RDW 14.6 11.0 - 15.0 % LAB HEMETOLOGY METHOD 08/02/2024 9:01 AM EDT [facility] Platelets 199 130 - 400 K/mcL LAB HEMETOLOGY METHOD 08/02/2024 9:01 AM EDT [facility] MPV 11.2(H) 7.0 - 11.0 FL LAB HEMETOLOGY METHOD 08/02/2024 9:01 AM EDT [facility] NRBC 0.0 <1.0 % LAB HEMETOLOGY METHOD 08/02/2024 9:01 AM EDT [facility] NRBC Absolute 0.00 <0.10 K/mcL LAB HEMETOLOGY METHOD 08/02/2024 9:01 AM [facility] Blood Venous blood specimen / Unknown Venipuncture / Unknown 08/02/2024 4:51 AM EDT 08/02/2024 8:03 AM EDT us May Stacy MD LAB BLOOD ORDERABLES Fin al Result [facility] [address] [place] [address], documented in this encounter Visit Diagnoses Diagnosis Essential (primary) hypertension Unspecified essential hypertension documented in this encounter Care Teams Apartment Leasing Consultant Relationship Specialty Start Date End Date Evelyn Ibrahim MD [address] [place] [id number] PCP - General Internal Medicine 04/11/21 documented as of this encounter
== END 2024-09-18 14:50 | disposition home or self-care (01) ==
LOC: HO.HMCH 14:07
PROVIDERS: PCP Internal Medicine; Visit Provider Internal Medicine
DX: I48.91 Unspecified atrial fibrillation (principal); F19.10 Other psychoactive substance abuse, uncomplicated; J44.9 Chronic obstructive pulmonary disease, unspecified; F10.10 Alcohol abuse, uncomplicated; I10 Essential (primary) hypertension; E78.5 Hyperlipidemia, unspecified; K81.0 Acute cholecystitis; Z72.0 Tobacco use

== ENCOUNTER → 2024-09-18 14:06 | Outpatient (BNVA) | payer MEDICARE, MEDICAID, SELFPAY | PROVIDERS: PCP Internal Medicine; Visit Provider Internal Medicine | DX: F10.10 Alcohol abuse, uncomplicated (principal); F19.10 Other psychoactive substance abuse, uncomplicated; I48.91 Unspecified atrial fibrillation; I10 Essential (primary) hypertension; E78.5 Hyperlipidemia, unspecified; K81.0 Acute cholecystitis; J44.9 Chronic obstructive pulmonary disease, unspecified; F17.200 Nicotine dependence, unspecified, uncomplicated; Z71.6 Tobacco abuse counseling | CPT/HCPCS: 99212 ==

== ENCOUNTER 2024-10-05 14:09 | Outpatient (REF) | payer MEDICARE, MEDICAID, SELFPAY ==
--- OUTSIDE RECORDS SUMMARY | 2024-10-05 14:16 | XMS_ITS | Encounter Summary ---
Author Organization [facility] Address [address] [place] [address] Care Team Providers Care Stripper And Printer Name Role Phone Evelyn Ibrahim MD Primary Care Provider [phone] Encounter Details Date Type Department Care Team (Late st Contact Info) Description 08/02/2024 Lab Requisition [facility] - Main Lab [address] [facility] [place] [address] May Stacy MD [address] [address] Essential (primary) hypertension Social History Tobacco Use [...] mmol/L LAB CHEMISTRY METHOD 08/02/2024 9:04 AM [facility] Potassium 4.0 3.5 - 5.5 mmol/L LAB CHEMISTRY METHOD 08/02/2024 9:04 AM [facility] Chloride 103 96 - 110 mmol/L LAB CHEMISTRY METHOD 08/02/2024 9:04 AM [facility] CO2 29 21 - 32 mmol/L LAB CHEMISTRY METHOD 08/02/2024 9:04 AM [facility] Anion Gap 6 3 - 11 LAB CHEMISTRY METHOD 08/02/2024 9:04 AM [facility] Glucose 73 70 - 100 mg/dL LAB CHEMISTRY METHOD 08/02/2024 9:04 AM [facility] BUN 5 5 - 25 mg/dL LAB CHEMISTRY METHOD 08/02/2024 9:04 AM [facility] Creatinine 0.38(L) 0.70 - 1.30 mg/dL LAB CHEMISTRY METHOD 08/02/2024 9:04 AM [facility] eGFR 131 >=60 mL/min/1. 73m2 LAB CHEMISTRY METHOD 08/02/2024 9:04 AM [facility] Comment:Calculation based on the Chronic Kidney Disease Epidemiology Collaboration (CKD-EPI) equation refit without adjustment for race. BUN/Creatinine Ratio 13.2 LAB CHEMISTRY METHOD 08/02/2024 9:04 AM [facility] Calcium 7.9(L) 8.5 - 10.5 mg/dL LAB CHEMISTRY METHOD 08/02/2024 9:04 AM [facility] AST (SGOT) 65(H) 10 - 42 unit/L LAB CHEMISTRY METHOD 08/02/2024 9:04 AM [facility] ALT (SGPT) 35 10 - 60 unit/L LAB CHEMISTRY METHOD 08/02/2024 9:04 AM [facility] Alkaline Phosphatase 412(H) 42 - 121 unit/L LAB CHEMISTRY METHOD 08/02/2024 9:04 AM [facility] Total Protein 5.3(L) 6.0 - 8.0 g/dL LAB CHEMISTRY METHOD 08/02/2024 9:04 AM [facility] Albumin 1.8(L) 3.2 - 5.0 g/dL LAB CHEMISTRY METHOD 08/02/2024 9:04 AM [facility] Total Bilirubin 1.0 0.0 - 1.4 mg/dL LAB CHEMISTRY METHOD 08/02/2024 9:04 AM [facility] Blood Venous blood specimen / Unknown Venipuncture / Unknown 08/02/2024 4:51 AM EDT 08/02/2024 8:03 AM EDT May Stacy MD LAB BLOOD ORDERABLES Fin al Result [facility] [address] [place] [address], [place] [phone] * (ABNORMAL) Complete blood count (08/02/2024 4:51 AM EDT) WBC 8.3 4.8 - 10.8 K/mcL LAB HEMETOLOGY METHOD 08/02/2024 9:01 AM [facility] RBC 2.40(L) 4.50 - 5.50 M/mcL LAB HEMETOLOGY METHOD 08/02/2024 9:01 AM [facility] Hemoglobin 9.1(L) 13.5 - 17.5 g/dL LAB HEMETOLOGY METHOD 08/02/2024 9:01 AM [facility] Hematocrit 28.0(L) 42.0 - 54.0 % LAB HEMETOLOGY METHOD 08/02/2024 9:01 AM [facility] MCV 114.8(H) 79.0 - 98.0 FL LAB HEMETOLOGY METHOD 08/02/2024 9:01 AM EDT [facility] MCH 37.3(H) 27.0 - 32.0 pcg LAB HEMETOLOGY METHOD 08/02/2024 9:01 AM EDT [facility] MCHC 32.5 32.0 - 37.0 g/dL LAB HEMETOLOGY METHOD 08/02/2024 9:01 AM EDT [facility] RDW 14.6 11.0 - 15.0 % LAB HEMETOLOGY METHOD 08/02/2024 9:01 AM EDT [facility] Platelets 199 130 - 400 K/mcL LAB HEMETOLOGY METHOD 08/02/2024 9:01 AM EDT [facility] MPV 11.2(H) 7.0 - 11.0 FL LAB HEMETOLOGY METHOD 08/02/2024 9:01 AM EDT [facility] NRBC 0.0 <1.0 % LAB HEMETOLOGY METHOD 08/02/2024 9:01 AM EDT [facility] NRBC Absolute 0.00 <0.10 K/mcL LAB HEMETOLOGY METHOD 08/02/2024 9:01 AM [facility] Blood Venous blood specimen / Unknown Venipuncture / Unknown 08/02/2024 4:51 AM EDT 08/02/2024 8:03 AM EDT us May Stacy MD LAB BLOOD ORDERABLES Fin al Result [facility] [address] [place] [address], documented in this encounter Visit Diagnoses Diagnosis Essential (primary) hypertension Unspecified essential hypertension documented in this encounter Care Teams Stripper And Printer Relationship Specialty Start Date End Date Evelyn Ibrahim MD [address] [place] [id number] PCP - General Internal Medicine 04/11/21 documented as of this encounter
[2024-10-05 16:09] LABS: MANUAL DIFF FLAG NO
[2024-10-05 16:11] LABS: Hematocrit 33.2 % (42.0-52.0); Hemoglobin 11.5 g/dl (14.0-18.0); Imm Gran Abs Auto 0.04 X10*3/uL (0.00-0.03); Imm Gran Pct Auto 0.4 % (0.0-0.4); Lymphocytes Absolute Auto 1.2 X10*3/uL (1.2-4.9); Mean Corpuscular HGB Conc 34.6 g/dl (31.0-36.0); Mean Corpuscular Hemoglobin 35.6 pg (27.0-33.0); Mean Corpuscular Volume 102.8 fL (80.0-98.0); NRBC Abs Auto 0.000 X10*3/uL (0.0-0.012); NRBC Pct Auto 0.0 /100WBC (0.0-0.2); Platelet Count 162 X10*3/uL (160-400); Red Blood Count 3.23 X10*6/uL (4.60-5.80); White Blood Count 9.2 X10*3/uL (4.8-10.8)
[2024-10-05 16:47] LABS: Parathyroid Hormone Intact 55.3 pg/mL (8.7-77.1)
[2024-10-05 16:51] LABS: Free T4 (Free Thyroxine) 0.79 ng/dL (0.71-1.85)
[2024-10-05 16:59] LABS: Thyroid Stimulating Hormone 1.17 uIU/mL (0.32-4.0)
[2024-10-05 17:01] LABS: Alanine Aminotransferase 11 U/L (0-40); Albumin Level 2.6 g/dL (3.5-5.0); Alkaline Phosphatase 251 U/L (39-117); Anion Gap 11 (12-20); Aspartate Amino Transferase 77 U/L (5-37); Blood Urea Nitrogen 9 mg/dL (9-16); Calcium 7.8 mg/dL (8.4-10.2); Carbon Dioxide 32 mmol/L (22-29); Chloride 100 mmol/L (96-108); Estimated Glomerular Filt Rate > 60; Magnesium 1.4 mg/dL (1.6-2.6); Potassium 3.2 mmol/L (3.3-5.1); Sodium 140 mmol/L (135-145); Total Protein 6.4 g/dL (6.5-8.0)
[2024-10-05 17:04] LABS: Folate 2.5 ng/mL (> or = 4.0); Vitamin B12 427 pg/mL (200-900)
== END 2024-10-05 14:10 | disposition home or self-care (01) ==
LOC: HO.HMGCLDS 14:09
PROVIDERS: PCP Internal Medicine; Referring Provider Internal Medicine Nephrology; Visit Provider Internal Medicine
DX: J44.9 Chronic obstructive pulmonary disease, unspecified (principal); E87.6 Hypokalemia
CPT/HCPCS: 36415; 80053; 82088; 82607; 82746; 83735; 83970; 84244; 84439; 84443; 85025

== ENCOUNTER 2024-11-13 14:15 | Outpatient (REF) | payer MEDICARE, MEDICAID, SELFPAY ==
[2024-11-13 15:48] LABS: Anion Gap 11 (12-20); Blood Urea Nitrogen 12 mg/dL (9-16); Calcium 9.0 mg/dL (8.4-10.2); Carbon Dioxide 30 mmol/L (22-29); Chloride 105 mmol/L (96-108); Estimated Glomerular Filt Rate > 60; Potassium 4.6 mmol/L (3.3-5.1); Sodium 141 mmol/L (135-145)
--- OUTSIDE RECORDS SUMMARY | 2024-11-13 19:41 | XMS_ITS | Encounter Summary ---
Author Organization [facility] Address [address] [place] [address] Care Team Providers Care Cap Sewer Name Role Phone Evelyn Ibrahim MD Primary Care Provider [phone] Encounter Details Date Type Department Care Team (Late Contact Info) Description 08/02/2024 Lab Requisition [facility] - Main Lab [address] [place] [address] May Stacy MD [address] [address] Essential (primary) hypertension Social History Tobacco Use [...] as of this encounter Plan of Treatment Upcoming Encounters Date Type Department Care Team (Late Contact Info) Description 11/26/2024 7:15 AM EDT Appointment [facility] CT Scan [address] [place] [address] documented as of this encounter Procedures Procedure Name Priority Date/Time Associated Diagnosis Comments COMPLETE BLOOD COUNT Routine 08/02/2024 4:51 AM EDT Essential (primary) hypertension COMPREHENSIVE METABOLIC PANEL Routine 08/02/2024 4:51 AM EDT Essential (primary) hypertension documented in this encounter Results * (ABNORMAL) Comprehensive metabolic panel (08/02/2024 4:51 AM EDT) Sodium 138 133 - 145 mmol/L LAB CHEMISTRY METHOD 08/02/2024 9:04 AM [facility] Potassium 4.0 3.5 - 5.5 mmol/L LAB CHEMISTRY METHOD 08/02/2024 9:04 AM [facility] Chloride 103 96 - 110 mmol/L LAB CHEMISTRY METHOD 08/02/2024 9:04 AM [facility] CO2 29 21 - 32 mmol/L LAB CHEMISTRY METHOD 08/02/2024 9:04 AM [facility] Anion Gap 6 3 - 11 LAB CHEMISTRY METHOD 08/02/2024 9:04 AM [facility] Glucose 73 70 - 100 mg/dL LAB CHEMISTRY METHOD 08/02/2024 9:04 AM [facility] BUN 5 5 - 25 mg/dL LAB CHEMISTRY METHOD 08/02/2024 9:04 AM [facility] Creatinine 0.38(L) 0.70 - 1.30 mg/dL LAB CHEMISTRY METHOD 08/02/2024 9:04 AM [facility] eGFR 131 >=60 mL/min/1. 73m2 LAB CHEMISTRY METHOD 08/02/2024 9:04 AM [facility] Comment:Calculation based on the Chronic Kidney Disease Epidemiology Collaboration (CKD-EPI) equation refit without adjustment for race. BUN/Creatinine Ratio 13.2 LAB CHEMISTRY METHOD 08/02/2024 9:04 AM [facility] Calcium 7.9(L) 8.5 - 10.5 mg/dL LAB CHEMISTRY METHOD 08/02/2024 9:04 AM [facility] AST (SGOT) 65(H) 10 - 42 unit/L LAB CHEMISTRY METHOD 08/02/2024 9:04 AM [facility] ALT (SGPT) 35 10 - 60 unit/L LAB CHEMISTRY METHOD 08/02/2024 9:04 AM [facility] Alkaline Phosphatase 412(H) 42 - 121 unit/L LAB CHEMISTRY METHOD 08/02/2024 9:04 AM [facility] Total Protein 5.3(L) 6.0 - 8.0 g/dL LAB CHEMISTRY METHOD 08/02/2024 9:04 AM [facility] Albumin 1.8(L) 3.2 - 5.0 g/dL LAB CHEMISTRY METHOD 08/02/2024 9:04 AM [facility] Total Bilirubin 1.0 0.0 - 1.4 mg/dL LAB CHEMISTRY METHOD 08/02/2024 9:04 AM [facility] Blood Venous blood specimen / Unknown Venipuncture / Unknown 08/02/2024 4:51 AM EDT 08/02/2024 8:03 AM EDT us May Stacy MD LAB BLOOD ORDERABLES Fin al Result [facility] [address] [place] [address], [place] [phone] * (ABNORMAL) Complete blood count (08/02/2024 4:51 AM EDT) WBC 8.3 4.8 - 10.8 K/mcL LAB HEMETOLOGY METHOD 08/02/2024 9:01 AM [facility] RBC 2.40(L) 4.50 - 5.50 M/mcL LAB HEMETOLOGY METHOD 08/02/2024 9:01 AM [facility] Hemoglobin 9.1(L) 13.5 - 17.5 g/dL LAB HEMETOLOGY METHOD 08/02/2024 9:01 AM [facility] Hematocrit 28.0(L) 42.0 - 54.0 % LAB HEMETOLOGY METHOD 08/02/2024 9:01 AM EDT [facility] MCV 114.8(H) 79.0 - 98.0 FL LAB HEMETOLOGY METHOD [facility] MCH 37.3(H) 27.0 - 32.0 pcg LAB HEMETOLOGY METHOD 08/02/2024 9:01 AM EDT [facility] MCHC 32.5 32.0 - 37.0 g/dL LAB HEMETOLOGY METHOD 08/02/2024 9:01 AM EDT [facility] RDW 14.6 11.0 - 15.0 % LAB HEMETOLOGY METHOD 08/02/2024 9:01 AM [facility] Platelets 199 130 - 400 K/mcL LAB HEMETOLOGY METHOD 08/02/2024 9:01 AM EDT [facility] MPV 11.2(H) 7.0 - 11.0 FL LAB HEMETOLOGY METHOD [facility]/02[facility]24 [facility] NRBC 0.0 <1.0 % LAB HEMETOLOGY METHOD 08/02/2024 9:01 AM [facility] NRBC Absolute 0.00 <0.10 K/mcL LAB HEMETOLOGY METHOD 08/02/2024 9:01 AM T [facility] Blood Venous blood specimen / Unknown Venipuncture / Unknown 08/02/2024 4:51 AM EDT 08/02/2024 8:03 AM EDT us May Stacy MD LAB BLOOD ORDERABLES Fin al Result [facility] [address] [place] [address], documented in this encounter Visit Diagnoses Diagnosis Essential (primary) hypertension Unspecified essential hypertension documented in this encounter Care Teams Cap Sewer Relationship Specialty Start Date End Date Evelyn Ibrahim MD [address] [place] [id number] PCP - General Internal Medicine 04/11/21 documented as of this encounter
--- OUTSIDE RECORDS SUMMARY | 2024-11-13 19:41 | XMS_ITS | Encounter Summary ---
Author Organization [facility] Address [address] [place] [address] Care Team Providers Care Magnetic Grinder Operator Name Role Phone Evelyn Ibrahim MD Primary Care Provider [phone] Encounter Details Date Type Department Care Team (Late Contact Info) Description 08/11/2024 Lab Requisition [facility] - Main Lab [address] [facility] [place] [address] May Stacy MD [address] [address] Essential (primary) hypertension; Unspecified atrial fibrillation (CMS/HCC V24, CMS/HCC V28); Chronic obstructive pulmonary disease, unspecified (CMS/HCC V24, CMS/HCC V28); Nutritional anemia, unspecified; Alcohol dependence with withdrawal, unspecified ([facility] V24, [facility]/HCC V28) Social History Tobacco Use Types Packs/Day Years [...] Info) Description 11/26/2024 7:15 AM EDT Appointment [facility] CT Scan [address] [place] [address] documented as of this encounter Visit Diagnoses Diagnosis Essential (primary) hypertension Unspecified essential hypertension Unspecified atrial fibrillation ([facility] V24, [facility] V28) Chronic obstructive pulmonary disease, unspecified ([facility] V24, [facility] V28) Nutritional anemia, unspecified Alcohol dependence with withdrawal, unspecified ([facility] V24, [facility] V28) documented in this encounter Care Teams Magnetic Grinder Operator Relationship Specialty Start Date End Date Evelyn Ibrahim MD [address] [place] [id number] PCP - General Internal Medicine 04/11/21 documented as of this encounter
--- OUTSIDE RECORDS SUMMARY | 2024-11-13 19:41 | XMS_ITS | Encounter Summary ---
Author Organization [facility] Address [address] [place] [address] Care Team Providers Care Interlocker Name Role Phone Evelyn Ibrahim MD Primary Care Provider [phone] Reason for Visit * Reason Onset Date Comments Appointment 11/08/2024 1st Notification Encounter Details Date Type Department Care Team (Late st Contact Info) Description 11/08/2024 Telephone Lung Screening Program - [address] [address] Amalia Bernal MA Social History Tobacco Use Types Packs/Day Years [...] as of this encounter Progress Notes * Amalia Bernal MA - 11/08/2024 3:27 PM EDT Nikko Alejandro was contacted by the Lung Cancer Screening Program today to confirm the appointment of their Lung Cancer Screening. The patient is currently scheduled to have their screening on Tuesday November 26, 2024 , at 715 AM at [facility]. No answer left message For all screenings scheduled during the week, the patient will check in at Patient Registration on the first floor of the main hospital. For screenings that take place on the weekend or after 5pm, check-in directly in Radiology. The patient was given the Lung Cancer Screening Program phone number, , to contact if they have any additional questions, concerns or need to reschedule. Patients are encouraged to call our office and reschedule if they are exhibiting any cold-like symptoms, have recently been treated for Pneumonia or Influenza (the flu) or have had another CT of their Chest since their last screening. documented in this encounter Plan of Treatment Upcoming Encounters Date Type Department Care Team (Late st Contact Info) Description 11/26/2024 7:15 AM EDT Appointment [facility] CT Scan [address] [place] [address] documented as of this encounter Visit Diagnoses Not on filedocumented in this encounter Care Teams Interlocker Relationship Specialty Start Date End Date Evelyn Ibrahim MD [address] [facility] [address] [place] [address] PCP - General Internal Medicine 04/11/21 documented as of this encounter
--- OUTSIDE RECORDS SUMMARY | 2024-11-13 19:41 | XMS_ITS | Clinical Summary ---
Author Organization [facility] Address [address] [place] [address] Phone Care Team Providers Care Rotary Soil Stabilizer Operator Name Role Phone Evelyn Ibrahim MD Primary Care Provider [phone] Allergies Active Allergy Reactions Criticality Noted Date [...] 03/08/2014 COPD (chronic obstructive pu lmonary disease) ([facility] V24, [facility] V28) 03/09/2013 Depression 03/09/2013 GERD (gastroesophageal reflux disease) 4 HTN (hypertension) 03/09/2013 Insomnia 03/09/2013 Encounters Date Type Department Care Team Description 11/08/2024 Telephone Lung Screening Program - [address] [address] Amalia Bernal MA from Last 3 Months Immunizations Name Administration [...] DX:Anxiety COPD (chronic obstructive pu lmonary disease) ([facility] V24, [facility] V28) 03/09/2013 DX:COPD (chronic o bstructive pulmonary disease) ([facility]) Depression 03/09/2013 DX:Depression GERD (gastroesophageal reflux [...] 83 03/13/2024 11:25 AM EST Temperature 36.6 C (97.8 F) 03/13/2024 11:25 AM EST Respiratory Rate 24 03/13/2024 11:25 AM EST [...] Info) Description 11/26/2024 7:15 AM EDT Appointment [facility] CT Scan [address] [place] [address] Health Maintenance Due Date Last Done Comments Hepatitis A Vaccines (1 of 2 - Risk 2-dose series) 02/27/1988 Hepatitis B Vaccines (1 of 3 - 19+ 3-dose series) 02/27/1988 Pneumococcal Vaccine: 50+ Years (2 of 2 - PCV) 03/08/2015 03/08/2014, 12/30/2012 Zoster Vaccines (1 of 2) 2019 Colorectal Cancer Screening: Stool Based Tests (FOBT/FIT) 01/28/2022 HIV Screening 01/28/2022 Hepatitis C Screening 01/28/2022 Medicare Annual Wellness Visit 01/28/2022 Social Influencers of Health Screening 01/28/2022 Depression Screening 03/01/2024 Cholesterol Screening (Lipid Panel) 08/02/2024 08/03/2019 COVID-19 Vaccine ( season) 2024 12/01/2022, 01/14/2022, 07/09/2021, Additional history exists Influenza Vaccine (#1) 2024 , 01/14/2022, 12/17/2020, Additional history exists Hypertension/CHF/CAD Annual BMP Blood Test 08/07/2025 08/07/2024, 08/02/2024, 08/03/2019 DTaP,Tdap,and Td Vaccines (4 - Td [...] Procedure Name Priority Date/Time Associated Diagnosis Comments COMPREHENSIVE METABOLIC PANEL Routine 08/07/2024 6:25 AM EDT Essential (primary) hypertension Unspecified atrial fibrillation ([facility] V24, [facility] V28) Chronic obstructive pulmonary disease, unspecified ([facility] V24, [facility] V28) Nutritional anemia, unspecified Alcohol dependence with withdrawal, unspecified ([facility] V24, [facility] V28) LIPID PANEL Routine 08/03/2019 from Last 3 Months or Most Recently Relevant to Health Maintenance Results * (ABNORMAL) Comprehensive metabolic panel (08/07/2024 6:25 AM EDT) Sodium 139 133 - 145 mmol/L LAB CHEMISTRY METHOD 08/07/2024 12:05 PM [facility] Potassium 3.6 3.5 - 5.5 mmol/L LAB CHEMISTRY METHOD 08/07/2024 12:05 PM [facility] Chloride 103 96 - 110 mmol/L LAB CHEMISTRY METHOD 08/07/2024 12:05 PM [facility] CO2 29 21 - 32 mmol/L LAB CHEMISTRY METHOD 08/07/2024 12:05 PM [facility] Anion Gap 7 3 - 11 LAB CHEMISTRY METHOD 08/07/2024 12:05 PM [facility] Glucose 47(L) 70 - 100 mg/dL LAB CHEMISTRY METHOD 08/07/2024 12:05 PM [facility] BUN 7 5 - 25 mg/dL LAB CHEMISTRY METHOD 08/07/2024 12:05 PM [facility] Creatinine 0.43(L) 0.70 - 1.30 mg/dL LAB CHEMISTRY METHOD 08/07/2024 12:05 PM [facility] eGFR 126 >=60 mL/min/1. 73m2 LAB CHEMISTRY METHOD 08/07/2024 12:05 PM [facility] Comment:Calculation based on the Chronic Kidney Disease Epidemiology Collaboration (CKD-EPI) equation refit without adjustment for race. BUN/Creatinine Ratio 16.3 LAB CHEMISTRY METHOD 08/07/2024 12:05 PM [facility] Calcium 8.3(L) 8.5 - 10.5 mg/dL LAB CHEMISTRY METHOD 08/07/2024 12:05 PM [facility] AST (SGOT) 54(H) 10 - 42 unit/L LAB CHEMISTRY METHOD 08/07/2024 12:05 PM [facility] ALT (SGPT) 29 10 - 60 unit/L LAB CHEMISTRY METHOD 08/07/2024 12:05 PM [facility] Alkaline Phosphatase 297(H) 42 - 121 unit/L LAB CHEMISTRY METHOD 08/07/2024 12:05 PM [facility] Total Protein 5.7(L) 6.0 - 8.0 g/dL LAB CHEMISTRY METHOD 08/07/2024 12:05 PM [facility] Albumin 2.0(L) 3.2 - 5.0 g/dL LAB CHEMISTRY METHOD 08/07/2024 12:05 PM [facility] Total Bilirubin 0.7 0.0 - 1.4 mg/dL LAB CHEMISTRY METHOD 08/07/2024 12:05 PM [facility] Blood Venous blood specimen / Unknown Venipuncture / Unknown 08/07/2024 6:25 AM EDT 08/07/2024 10:30 AM EDT us May Stacy MD LAB BLOOD ORDERABLES Fin al Result [facility] [address] [place] [address], * Lipid panel (08/03/2019) LDL/HDL Ratio 4 0 - 4 Triglycerides 124 0 - 150 mg/dL Cholesterol 145 0 - 200 mg/dL HDL 40 >=40 mg/dL LDL Cholesterol 81 0 - 100 mg/dL Blood Venous blood specimen / Unknown [facility] Provider LAB BLOOD ORDERABLES Marita l Result from Last 3 Months or Most Recently Relevant to Health Maintenance Insurance MEDICARE [place]ICA[place] - [place] [employer] Care Teams Rotary Soil Stabilizer Operator Relationship Specialty Start Date End Date Evelyn Ibrahim MD [address] [place] [phone] PCP - General Internal Medicine 04/11/21
--- OUTSIDE RECORDS SUMMARY | 2024-11-13 19:41 | XMS_ITS | Encounter Summary ---
Author Organization [facility] Address [address] [place] [address] Care Team Providers Care Patient Support Tech Name Role Phone Evelyn Ibrahim MD Primary Care Provider Encounter Details Date Type Department Care Team (Late Contact Info) Description 08/04/[address] [facility] - Main Lab [address] [facility] [place] [address] May Stacy MD [address] [address] Essential (primary) hypertension; Unspecified atrial fibrillation (CMS/HCC V24, CMS/HCC V28); Chronic obstructive pulmonary disease, unspecified (CMS/HCC V24, CMS/HCC V28); Nutritional anemia, unspecified; Alcohol dependence with withdrawal, unspecified ([facility] V24, [facility]/HCC V28) Social History Tobacco Use [...] Info) Description 11/26/2024 7:15 AM EDT Appointment [facility] CT Scan [address] [place] [address] documented as of this encounter Procedures Procedure Name Priority Date/Time Associated Diagnosis Comments COMPLETE BLOOD COUNT Routine 08/07/2024 6:25 AM EDT Essential (primary) hypertension Unspecified atrial fibrillation (CMS/HCC V24, CMS/HCC V28) Chronic obstructive pulmonary disease, unspecified (CMS/HCC V24, CMS/HCC V28) Nutritional anemia, unspecified Alcohol dependence with withdrawal, unspecified (CMS/HCC V24, CMS/HCC V28) MAGNESIUM Routine 08/07/2024 6:25 AM EDT Essential (primary) hypertension Unspecified atrial fibrillation (CMS/HCC V24, CMS/HCC V28) Chronic obstructive pulmonary disease, unspecified (CMS/HCC V24, CMS/HCC V28) Nutritional anemia, unspecified Alcohol dependence with withdrawal, unspecified (CMS/HCC V24, CMS/HCC V28) DIGOXIN LEVEL Routine 08/07/2024 6:25 AM EDT Essential (primary) hypertension Unspecified atrial fibrillation (CMS/HCC V24, CMS/HCC V28) Chronic obstructive pulmonary disease, unspecified (CMS/HCC V24, CMS/HCC V28) Nutritional anemia, unspecified Alcohol dependence with withdrawal, unspecified (CMS/HCC V24, CMS/HCC V28) COMPREHENSIVE METABOLIC PANEL Routine 08/07/2024 6:25 AM EDT Essential (primary) hypertension Unspecified atrial fibrillation (CMS/HCC V24, CMS/HCC V28) Chronic obstructive pulmonary disease, unspecified (CMS/HCC V24, CMS/HCC V28) Nutritional anemia, unspecified Alcohol dependence with withdrawal, unspecified (CMS/HCC V24, CMS/HCC V28) documented in this encounter Results * (ABNORMAL) Magnesium (08/07/2024 6:25 AM EDT) Magnesium 1.6(L) 1.9 - 2.6 mg/dL LAB CHEMISTRY METHOD 08/07/2024 12:02 PM EDT [facility] Blood Venous blood specimen / Unknown Venipuncture / Unknown 08/07/2024 6:25 AM EDT 08/07/2024 10:30 AM EDT May Stacy MD LAB BLOOD ORDERABLES Fin al Result Performing Organization Address [facility] Co de Phone Number [facility] [address] [place] [address], [place] [phone] * Digoxin level (08/07/2024 6:25 AM EDT) [facility] Digoxin Lvl 0.6 0.5 - 2.0 ng/mL LAB CHEMISTRY METHOD 08/07/2024 12:13 PM EDT [facility] Blood Venous blood specimen / Unknown Venipuncture / Unknown 08/07/2024 6:25 AM EDT 08/07/2024 10:30 AM EDT May Stacy MD LAB BLOOD ORDERABLES Fin al Result Performing Organization Address [facility] [[email or web address]] de Phone Number [facility] [address] [place] [address], [place] [phone] * (ABNORMAL) Comprehensive metabolic panel (08/07/2024 6:25 AM EDT) [facility] Sodium 139 133 - 145 mmol/L LAB CHEMISTRY METHOD 08/07/2024 12:05 PM [facility] Potassium 3.6 3.5 - 5.5 mmol/L LAB CHEMISTRY METHOD 08/07/2024 12:05 PM [facility] Chloride 103 96 - 110 mmol/L LAB CHEMISTRY METHOD 08/07/2024 12:05 PM [facility] CO2 29 21 - 32 mmol/L LAB CHEMISTRY METHOD 08/07/2024 12:05 PM [facility] Anion Gap 7 3 - 11 LAB CHEMISTRY METHOD 08/07/2024 12:05 PM [facility] Glucose 47(L) 70 - 100 mg/dL LAB CHEMISTRY METHOD 08/07/2024 12:05 PM [facility] BUN 7 5 - 25 mg/dL LAB CHEMISTRY METHOD 08/07/2024 12:05 PM [facility] Creatinine 0.43(L) 0.70 - 1.30 mg/dL LAB CHEMISTRY METHOD 08/07/2024 12:05 PM [facility] eGFR 126 >=60 mL/min/1. 73m2 LAB CHEMISTRY METHOD 08/07/2024 12:05 PM [facility] Comment:Calculation based on the Chronic Kidney Disease Epidemiology Collaboration (CKD-EPI) equation refit without adjustment for race. BUN/Creatinine Ratio 16.3 LAB CHEMISTRY METHOD 08/07/2024 12:05 PM [facility] Calcium 8.3(L) 8.5 - 10.5 mg/dL LAB CHEMISTRY METHOD 08/07/2024 12:05 [facility] AST (SGOT) 54(H) 10 - 42 unit/L LAB CHEMISTRY METHOD 08/07/2024 12:05 [facility] ALT (SGPT) 29 10 - 60 unit/L LAB CHEMISTRY METHOD 08/07/2024 12:05 PM [facility] Alkaline Phosphatase 297(H) 42 - 121 unit/L LAB CHEMISTRY METHOD 08/07/2024 12:05 PM [facility] Total Protein 5.7(L) 6.0 - 8.0 g/dL LAB CHEMISTRY METHOD 08/07/2024 12:05 [facility] Albumin 2.0(L) 3.2 - 5.0 g/dL LAB CHEMISTRY METHOD 08/07/2024 12:05 PM [facility] Total Bilirubin 0.7 0.0 - 1.4 mg/dL LAB CHEMISTRY METHOD 08/07/2024 12:05 PM [facility] Blood Venous blood specimen / Unknown Venipuncture / Unknown 08/07/2024 6:25 AM EDT 08/07/2024 10:30 AM EDT us May Stacy MD LAB BLOOD ORDERABLES Fin al Result [facility] [address] [place] [address], [place] [phone] * (ABNORMAL) Complete blood count (08/07/2024 6:25 AM EDT) Pathologist [facility] WBC 8.8 4.8 - 10.8 K/mcL LAB HEMETOLOGY METHOD 08/07/2024 2:21 PM EDT [facility] RBC 2.60(L) 4.50 - 5.50 M/mcL LAB HEMETOLOGY METHOD 08/07/2024 2:21 PM EDT [facility] Hemoglobin 9.5(L) 13.5 - 17.5 g/dL LAB HEMETOLOGY METHOD 08/07/2024 2:21 PM EDT [facility] Hematocrit 30.7(L) 42.0 - 54.0 % LAB HEMETOLOGY METHOD 08/07/2024 2:21 PM EDT [facility] MCV 118.5(H) 79.0 - 98.0 FL LAB HEMETOLOGY METHOD 08/07/2024 2:21 PM EDT [facility] MCH 36.7(H) 27.0 - 32.0 pcg LAB HEMETOLOGY METHOD 08/07/2024 2:21 PM EDT [facility] MCHC 30.9(L) 32.0 - 37.0 g/dL LAB HEMETOLOGY METHOD 08/07/2024 2:21 PM EDT [facility] RDW 14.5 11.0 - 15.0 % LAB HEMETOLOGY METHOD 08/07/2024 2:21 PM EDT [facility] Platelets 288 130 - 400 K/mcL LAB HEMETOLOGY METHOD 08/07/2024 2:21 PM EDT [facility] MPV 10.4 7.0 - 11.0 FL LAB HEMETOLOGY METHOD 08/07/2024 2:21 PM EDT [facility] NRBC 0.0 <1.0 % LAB HEMETOLOGY METHOD 08/07/2024 2:21 PM EDT [facility] NRBC Absolute 0.00 <0.10 K/mcL LAB HEMETOLOGY METHOD 08/07/2024 2:21 PM EDT [facility] Blood Venous blood specimen / Unknown Venipuncture / Unknown 08/07/2024 6:25 AM EDT 08/07/2024 10:31 AM EDT us May Stacy MD LAB BLOOD ORDERABLES Fin al Result [facility] [address] [place] [address], documented in this encounter Visit Diagnoses Diagnosis Essential (primary) hypertension Unspecified essential hypertension Unspecified atrial fibrillation (CMS/HCC V24, CMS/HCC V28) Chronic obstructive pulmonary disease, unspecified (CMS/HCC V24, [facility]/HCC V28) Nutritional anemia, unspecified Alcohol dependence with withdrawal, unspecified (CMS/HCC V24, [facility] V28) documented in this encounter Care Teams Patient Support Tech Relationship Specialty Start Date End Date Evelyn Ibrahim MD [address] [place] [id number] PCP - General Internal Medicine 04/11/21 documented as of this encounter
== END 2024-11-13 14:16 | disposition home or self-care (01) ==
LOC: HO.LAB 14:15
PROVIDERS: PCP Internal Medicine; Visit Provider Internal Medicine
DX: F41.1 Generalized anxiety disorder (principal)
CPT/HCPCS: 36415; 80048

== ENCOUNTER 2024-11-14 15:10 | Outpatient (REF) | payer MEDICARE, MEDICAID, SELFPAY ==
[2024-11-14 15:28] LABS: Appearance Urine Clear; Glucose Urine UA Negative (Negative); PH 8.0 (5.0-9.0); Specific Gravity - Urine 1.015 (1.005-1.025)
--- OUTSIDE RECORDS SUMMARY | 2024-11-14 18:42 | XMS_ITS | Encounter Summary ---
Author Organization [facility] Address [address] [place] [address] Care Team Providers Care Box Sealing Machine Operator Name Role Phone Evelyn Ibrahim MD Primary Care Provider [phone] Encounter Details Date Type Department Care Team (Late Contact Info) Description 08/02/2024 Lab Requisition [facility] - Main Lab [address] [place] [address] May Stacy MD [address] [address] Essential (primary) hypertension Social History Tobacco Use [...] Info) Description 11/26/2024 7:15 AM EDT Appointment [facility] CT Scan [address] [place] [address] documented as of this encounter Procedures Procedure Name Priority Date/Time Associated Diagnosis Comments COMPLETE BLOOD COUNT Routine 08/02/2024 4:51 AM EDT Essential (primary) hypertension COMPREHENSIVE METABOLIC PANEL Routine 08/02/2024 4:51 AM EDT Essential (primary) hypertension documented in this encounter Results * (ABNORMAL) Comprehensive metabolic panel (08/02/2024 4:51 AM EDT) Sodium 138 133 - 145 mmol/L LAB CHEMISTRY METHOD 08/02/2024 9:04 AM [facility] Potassium 4.0 3.5 - 5.5 mmol/L LAB CHEMISTRY METHOD 08/02/2024 9:04 AM [facility] Chloride 103 96 - 110 mmol/L LAB CHEMISTRY METHOD 08/02/2024 9:04 AM [facility] CO2 29 21 - 32 mmol/L LAB CHEMISTRY METHOD 08/02/2024 9:04 AM [facility] Anion Gap 6 3 - 11 LAB CHEMISTRY METHOD 08/02/2024 9:04 AM [facility] Glucose 73 70 - 100 mg/dL LAB CHEMISTRY METHOD 08/02/2024 9:04 AM [facility] BUN 5 5 - 25 mg/dL LAB CHEMISTRY METHOD 08/02/2024 9:04 AM [facility] Creatinine 0.38(L) 0.70 - 1.30 mg/dL LAB CHEMISTRY METHOD 08/02/2024 9:04 AM [facility] eGFR 131 >=60 mL/min/1. 73m2 LAB CHEMISTRY METHOD 08/02/2024 9:04 AM [facility] Comment:Calculation based on the Chronic Kidney Disease Epidemiology Collaboration (CKD-EPI) equation refit without adjustment for race. BUN/Creatinine Ratio 13.2 LAB CHEMISTRY METHOD 08/02/2024 9:04 AM [facility] Calcium 7.9(L) 8.5 - 10.5 mg/dL LAB CHEMISTRY METHOD 08/02/2024 9:04 AM [facility] AST (SGOT) 65(H) 10 - 42 unit/L LAB CHEMISTRY METHOD 08/02/2024 9:04 AM [facility] ALT (SGPT) 35 10 - 60 unit/L LAB CHEMISTRY METHOD 08/02/2024 9:04 AM [facility] Alkaline Phosphatase 412(H) 42 - 121 unit/L LAB CHEMISTRY METHOD 08/02/2024 9:04 AM [facility] Total Protein 5.3(L) 6.0 - 8.0 g/dL LAB CHEMISTRY METHOD 08/02/2024 9:04 AM [facility] Albumin 1.8(L) 3.2 - 5.0 g/dL LAB CHEMISTRY METHOD 08/02/2024 9:04 AM [facility] Total Bilirubin 1.0 0.0 - 1.4 mg/dL LAB CHEMISTRY METHOD 08/02/2024 9:04 AM [facility] Blood Venous blood specimen / Unknown Venipuncture / Unknown 08/02/2024 4:51 AM EDT 08/02/2024 8:03 AM EDT us May Stacy MD LAB BLOOD ORDERABLES Fin al Result [facility] [address] [place] [address], [place] [phone] * (ABNORMAL) Complete blood count (08/02/2024 4:51 AM EDT) WBC 8.3 4.8 - 10.8 K/mcL LAB HEMETOLOGY METHOD 08/02/2024 9:01 AM [facility] RBC 2.40(L) 4.50 - 5.50 M/mcL LAB HEMETOLOGY METHOD 08/02/2024 9:01 AM [facility] Hemoglobin 9.1(L) 13.5 - 17.5 g/dL LAB HEMETOLOGY METHOD 08/02/2024 9:01 AM [facility] Hematocrit 28.0(L) 42.0 - 54.0 % LAB HEMETOLOGY METHOD 08/02/2024 9:01 AM EDT [facility] MCV 114.8(H) 79.0 - 98.0 FL LAB HEMETOLOGY METHOD [facility] MCH 37.3(H) 27.0 - 32.0 pcg LAB HEMETOLOGY METHOD 08/02/2024 9:01 AM EDT [facility] MCHC 32.5 32.0 - 37.0 g/dL LAB HEMETOLOGY METHOD 08/02/2024 9:01 AM EDT [facility] RDW 14.6 11.0 - 15.0 % LAB HEMETOLOGY METHOD 08/02/2024 9:01 AM [facility] Platelets 199 130 - 400 K/mcL LAB HEMETOLOGY METHOD 08/02/2024 9:01 AM EDT [facility] MPV 11.2(H) 7.0 - 11.0 FL LAB HEMETOLOGY METHOD 08/02[facility]2024 [facility] NRBC 0.0 <1.0 % LAB HEMETOLOGY METHOD 08/02/2024 9:01 AM [facility] NRBC Absolute 0.00 <0.10 K/mcL LAB HEMETOLOGY METHOD 08/02/2024 9:01 AM T [facility] Blood Venous blood specimen / Unknown Venipuncture / Unknown 08/02/2024 4:51 AM EDT 08/02/2024 8:03 AM EDT us May Stacy MD LAB BLOOD ORDERABLES Fin al Result [facility] [address] [place] [address], documented in this encounter Visit Diagnoses Diagnosis Essential (primary) hypertension Unspecified essential hypertension documented in this encounter Care Teams Box Sealing Machine Operator Relationship Specialty Start Date End Date Evelyn Ibrahim MD [address] [place] [phone] PCP - General Internal Medicine 04/11/21 documented as of this encounter
--- OUTSIDE RECORDS SUMMARY | 2024-11-14 18:42 | XMS_ITS | Encounter Summary ---
Author Organization [facility] Address [address] [place] [address] Care Team Providers Care Design Checker Name Role Phone Evelyn Ibrahim MD Primary Care Provider [phone] Encounter Details Date Type Department Care Team (Late Contact Info) Description 08/04/2024 Lab Requisition [facility] - Main Lab [address] [facility] [place] [address] May Stacy MD [address] [address] Essential (primary) hypertension; Unspecified atrial fibrillation (CMS/HCC V24, CMS/HCC V28); Chronic obstructive pulmonary disease, unspecified (CMS/HCC V24, CMS/HCC V28); Nutritional anemia, unspecified; Alcohol dependence with withdrawal, unspecified ([facility] V24, [facility]/HCC V28) Social History Tobacco Use Types Packs/Day [...] Info) Description 11/26/2024 7:15 AM EDT Appointment [facility] CT Scan [address] [place] [address] documented as of this encounter [...] LAB CHEMISTRY METHOD 08/07/2024 12:02 PM EDT [facility] Blood Venous blood specimen / Unknown Venipuncture / Unknown 08/07/2024 6:25 AM EDT 08/07/2024 10:30 AM EDT May Stacy MD LAB BLOOD ORDERABLES Fin al Result Performing Organization Address [facility] Co de Phone Number [facility] [address] [place] [address], [place] [phone] * Digoxin level (08/07/2024 6:25 AM EDT) [facility] Digoxin Lvl 0.6 0.5 - 2.0 ng/mL LAB CHEMISTRY METHOD 08/07/2024 12:13 PM EDT [facility] Blood Venous blood specimen / Unknown Venipuncture / Unknown 08/07/2024 6:25 AM EDT 08/07/2024 10:30 AM EDT May Stacy MD LAB BLOOD ORDERABLES Fin al Result Performing Organization Address [facility] de Phone Number [facility] [address] [place] [address], [place] [phone] * (ABNORMAL) Comprehensive metabolic panel (08/07/2024 6:25 AM EDT) [facility] Sodium 139 133 - 145 mmol/L LAB CHEMISTRY METHOD 08/07/2024 12:05 PM [facility] Potassium 3.6 3.5 - 5.5 mmol/L LAB CHEMISTRY METHOD 08/07/2024 12:05 PM [facility] Chloride 103 96 - 110 mmol/L LAB CHEMISTRY METHOD 08/07/2024 12:05 PM [facility] CO2 29 21 - 32 mmol/L LAB CHEMISTRY METHOD 08/07/2024 12:05 PM [facility] Anion Gap 7 3 - 11 LAB CHEMISTRY METHOD 08/07/2024 12:05 PM [facility] Glucose 47(L) 70 - 100 mg/dL LAB CHEMISTRY METHOD 08/07/2024 12:05 PM [facility] BUN 7 5 - 25 mg/dL LAB CHEMISTRY METHOD 08/07/2024 12:05 PM [facility] Creatinine 0.43(L) 0.70 - 1.30 mg/dL LAB CHEMISTRY METHOD 08/07/2024 12:05 PM [facility] eGFR 126 >=60 mL/min/1. 73m2 LAB CHEMISTRY METHOD 08/07/2024 12:05 PM [facility] Comment:Calculation based on the Chronic Kidney Disease Epidemiology Collaboration (CKD-EPI) equation refit without adjustment for race. BUN/Creatinine Ratio 16.3 LAB CHEMISTRY METHOD 08/07/2024 12:05 PM [facility] Calcium 8.3(L) 8.5 - 10.5 mg/dL LAB CHEMISTRY METHOD 08/07/2024 12:05 [facility] AST (SGOT) 54(H) 10 - 42 unit/L LAB CHEMISTRY METHOD 08/07/2024 12:05 [facility] ALT (SGPT) 29 10 - 60 unit/L LAB CHEMISTRY METHOD 08/07/2024 12:05 PM [facility] Alkaline Phosphatase 297(H) 42 - 121 unit/L LAB CHEMISTRY METHOD 08/07/2024 12:05 PM [facility] Total Protein 5.7(L) 6.0 - 8.0 g/dL LAB CHEMISTRY METHOD 08/07/2024 12:05 [facility] Albumin 2.0(L) 3.2 - 5.0 g/dL LAB CHEMISTRY METHOD 08/07/2024 12:05 PM [facility] Total Bilirubin 0.7 0.0 - 1.4 mg/dL LAB CHEMISTRY METHOD 08/07/2024 12:05 PM [facility] Blood Venous blood specimen / Unknown Venipuncture / Unknown 08/07/2024 6:25 AM EDT 08/07/2024 10:30 AM EDT us May Stacy MD LAB BLOOD ORDERABLES Fin al Result [facility] [address] [place] [address], [place] [phone] * (ABNORMAL) Complete blood count (08/07/2024 6:25 AM EDT) Pathologist [facility] WBC 8.8 4.8 - 10.8 K/mcL LAB HEMETOLOGY METHOD 08/07/2024 2:21 PM EDT [facility] RBC 2.60(L) 4.50 - 5.50 M/mcL LAB HEMETOLOGY METHOD 08/07/2024 2:21 PM EDT [facility] Hemoglobin 9.5(L) 13.5 - 17.5 g/dL LAB HEMETOLOGY METHOD 08/07/2024 2:21 PM EDT [facility] Hematocrit 30.7(L) 42.0 - 54.0 % LAB HEMETOLOGY METHOD 08/07/2024 2:21 PM EDT [facility] MCV 118.5(H) 79.0 - 98.0 FL LAB HEMETOLOGY METHOD 08/07/2024 2:21 PM EDT [facility] MCH 36.7(H) 27.0 - 32.0 pcg LAB HEMETOLOGY METHOD 08/07/2024 2:21 PM EDT [facility] MCHC 30.9(L) 32.0 - 37.0 g/dL LAB HEMETOLOGY METHOD 08/07/2024 2:21 PM EDT [facility] RDW 14.5 11.0 - 15.0 % LAB HEMETOLOGY METHOD 08/07/2024 2:21 PM EDT [facility] Platelets 288 130 - 400 K/mcL LAB HEMETOLOGY METHOD 08/07/2024 2:21 PM EDT [facility] MPV 10.4 7.0 - 11.0 FL LAB HEMETOLOGY METHOD 08/07/2024 2:21 PM EDT [facility] NRBC 0.0 <1.0 % LAB HEMETOLOGY METHOD 08/07/2024 2:21 PM EDT [facility] NRBC Absolute 0.00 <0.10 K/mcL LAB HEMETOLOGY METHOD 08/07/2024 2:21 PM EDT [facility] Blood Venous blood specimen / Unknown Venipuncture / Unknown 08/07/2024 6:25 AM EDT 08/07/2024 10:31 AM EDT us May Stacy MD LAB BLOOD ORDERABLES Fin al Result [facility] [address] [place] [address], documented in this encounter Visit Diagnoses Diagnosis Essential (primary) hypertension Unspecified essential hypertension Unspecified atrial fibrillation (CMS/HCC V24, CMS/HCC V28) Chronic obstructive pulmonary disease, unspecified (CMS/HCC V24, [facility]/HCC V28) Nutritional anemia, unspecified Alcohol dependence with withdrawal, unspecified (CMS/HCC V24, [facility] V28) documented in this encounter Care Teams Design Checker Relationship Specialty Start Date End Date Evelyn Ibrahim MD [address] [place] [phone] PCP - General Internal Medicine 04/11/21 documented as of this encounter
--- OUTSIDE RECORDS SUMMARY | 2024-11-14 18:42 | XMS_ITS | Encounter Summary ---
Author Organization [facility] Address [address] [place] [address] Care Team Providers Care Housekeeping Coordinator Name Role Phone Evelyn Ibrahim MD Primary Care Provider [phone] Encounter Details Date Type Department Care Team (Late Contact Info) Description 08/11/2024 Lab Requisition [facility] - Main Lab [address] [facility] [place] [address] May Stacy MD [address] [address] Essential (primary) hypertension; Unspecified atrial fibrillation (CMS/HCC V24, CMS/HCC V28); Chronic obstructive pulmonary disease, unspecified (CMS/HCC V24, CMS/HCC V28); Nutritional anemia, unspecified; Alcohol dependence with withdrawal, unspecified ([facility] V24, [facility]/HCC V28) Social History Tobacco Use Types Packs/Day [...] Info) Description 11/26/2024 7:[address] [facility] CT Scan [address] [place] [address] documented as of this encounter Visit Diagnoses Diagnosis Essential (primary) hypertension Unspecified essential hypertension Unspecified atrial fibrillation ([facility] V24, [facility] V28) Chronic obstructive pulmonary disease, unspecified ([facility] V24, [facility] V28) Nutritional anemia, unspecified Alcohol dependence with withdrawal, unspecified ([facility] V24, [facility] V28) documented in this encounter Care Teams Housekeeping Coordinator Relationship Specialty Start Date End Date Evelyn Ibrahim MD [address] [place] [phone] PCP - General Internal Medicine 04/11/21 documented as of this encounter
--- OUTSIDE RECORDS SUMMARY | 2024-11-14 18:42 | XMS_ITS | Clinical Summary ---
Author Organization [facility] Address [address] [place] [address] Phone Care Team Providers Care Computer Systems Information Director Name Role Phone Evelyn Ibrahim MD Primary Care Provider [phone] Allergies Active Allergy Reactions Criticality Noted Date [...] 03/08/2014 COPD (chronic obstructive pu lmonary disease) ([facility] V24, [facility] V28) 03/09/2013 Depression 03/09/2013 GERD (gastroesophageal reflux disease) 4 HTN (hypertension) 03/09/2013 Insomnia 03/09/2013 Encounters Date Type Department Care Team Description 11/08/2024 Telephone Lung Screening Program - [address] [address] Amalia Bernal MA from Last [...] DX:Anxiety COPD (chronic obstructive pu lmonary disease) ([facility] V24, [facility] V28) 03/09/2013 DX:COPD (chronic o bstructive pulmonary disease) ([facility]) Depression 03/09/2013 DX:Depression GERD (gastroesophageal reflux [...] Description 11/26/2024 7:15 AM EDT Appointment [facility] CT Scan [address] [place] [address] Health Maintenance Due Date Last [...] EDT Essential (primary) hypertension Unspecified atrial fibrillation ([facility] V24, [facility] V28) Chronic obstructive pulmonary disease, unspecified ([facility] V24, [facility] V28) Nutritional anemia, unspecified Alcohol dependence with withdrawal, unspecified ([facility] V24, [facility] V28) LIPID PANEL Routine 08/03/2019 from [...] METHOD 08/07/2024 12:05 PM [facility] AST (SGOT) 54(H) 10 - 42 unit/L LAB CHEMISTRY METHOD 08/07/2024 12:05 PM [facility] ALT (SGPT) 29 10 - 60 unit/L LAB CHEMISTRY METHOD 08/07/2024 12:05 PM [facility] Alkaline Phosphatase 297(H) 42 - 121 unit/L LAB CHEMISTRY METHOD 08/07/2024 12:05 PM [facility] Total Protein 5.7(L) 6.0 - 8.0 g/dL LAB CHEMISTRY METHOD 08/07/2024 12:05 PM [facility] Albumin 2.0(L) 3.2 - 5.0 [...] al Result [facility] [address] [place] [address], * Lipid panel (08/03/2019) LDL/HDL Ratio 4 0 - 4 Triglycerides 124 0 - 150 mg/dL Cholesterol 145 0 - 200 mg/dL HDL 40 >=40 mg/dL LDL Cholesterol 81 0 - 100 mg/dL Blood Venous blood specimen / Unknown [facility] Provider LAB BLOOD ORDERABLES Marita l Result from Last 3 Months or Most Recently Relevant to Health Maintenance Insurance MEDICARE [place] - [place] [employer] Care Teams Computer Systems Information Director Relationship Specialty Start Date End Date Evelyn Ibrahim MD [address] [place] [phone] PCP - General Internal Medicine 04/11/21
== END 2024-11-14 15:11 | disposition home or self-care (01) ==
LOC: HO.LNP 15:10
PROVIDERS: Visit Provider Internal Medicine
DX: R30.0 Dysuria (principal); I48.3 Typical atrial flutter
CPT/HCPCS: 81003

== ENCOUNTER 2024-11-29 13:56 | Outpatient (REF) | payer MEDICARE, MEDICAID, SELFPAY ==
--- OUTSIDE RECORDS SUMMARY | 2024-11-29 15:10 | XMS_ITS | Encounter Summary ---
Author Organization [facility] Address [address] [place] [address] Care Team Providers Care Skill Labor Name Role Phone Evelyn Ibrahim MD Primary Care Provider [phone] Encounter Details Date Type Department Care Team ([facility] Contact Info) Description 08/02/2024 Lab Requisition [facility] - Main Lab 299 [facility] [place] [phone] May Stacy MD [address] [address] Essential (primary) hypertension Social History Tobacco Use [...] Department Care Team (Late Contact Info) Description 12/02/2024 9:30 AM EDT Appointment [facility] CT Scan [address] [place] [address] documented as of this encounter Procedures Procedure Name Priority Date/Time Associated Diagnosis Comments COMPLETE BLOOD COUNT Routine 08/02/2024 4:51 AM EDT Essential (primary) hypertension COMPREHENSIVE METABOLIC PANEL Routine 08/02/2024 4:51 AM EDT Essential (primary) hypertension documented in this encounter Results * (ABNORMAL) Comprehensive metabolic panel (08/02/2024 4:51 AM EDT) Sodium 138 133 - 145 mmol/L LAB CHEMISTRY METHOD 08/02/2024 9:04 AM [facility] Potassium 4.0 3.5 - 5.5 mmol/L LAB CHEMISTRY METHOD 08/02/2024 9:04 AM [facility] Chloride 103 96 - 110 mmol/L LAB CHEMISTRY METHOD 08/02/2024 9:04 AM [facility] CO2 29 21 - 32 mmol/L LAB CHEMISTRY METHOD 08/02/2024 9:04 AM [facility] Anion Gap 6 3 - 11 LAB CHEMISTRY METHOD 08/02/2024 9:04 AM [facility] Glucose 73 70 - 100 mg/dL LAB CHEMISTRY METHOD 08/02/2024 9:04 AM [facility] BUN 5 5 - 25 mg/dL LAB CHEMISTRY METHOD 08/02/2024 9:04 AM [facility] Creatinine 0.38(L) 0.70 - 1.30 mg/dL LAB CHEMISTRY METHOD 08/02/2024 9:04 AM [facility] eGFR 131 >=60 mL/min/1. 73m2 LAB CHEMISTRY METHOD 08/02/2024 9:04 AM [facility] Comment:Calculation based on the Chronic Kidney Disease Epidemiology Collaboration (CKD-EPI) equation refit without adjustment for race. BUN/Creatinine Ratio 13.2 LAB CHEMISTRY METHOD 08/02/2024 9:04 AM [facility] Calcium 7.9(L) 8.5 - 10.5 mg/dL LAB CHEMISTRY METHOD 08/02/2024 9:04 AM [facility] AST (SGOT) 65(H) 10 - 42 unit/L LAB CHEMISTRY METHOD 08/02/2024 9:04 AM [facility] ALT (SGPT) 35 10 - 60 unit/L LAB CHEMISTRY METHOD 08/02/2024 9:04 AM EDT [facility] Alkaline Phosphatase 412(H) 42 - 121 unit/L LAB CHEMISTRY METHOD 08/02/2024 9:04 AM EDT [facility] Total Protein 5.3(L) 6.0 - 8.0 g/dL LAB CHEMISTRY METHOD [facility]24 [facility] Albumin 1.8(L) 3.2 - 5.0 g/dL LAB CHEMISTRY METHOD 08/02/2024 9:04 AM [facility] Total Bilirubin 1.0 0.0 - 1.4 mg/dL LAB CHEMISTRY METHOD 08/02/2024 9:04 AM [facility] Blood Venous blood specimen / Unknown Venipuncture / Unknown 08/02/2024 4:51 AM EDT 08/02/2024 8:03 AM EDT us May Stacy MD LAB BLOOD ORDERABLES Fin al Result [facility] [address] [place] [address], [place] [phone] * (ABNORMAL) Complete blood count (08/02/2024 4:51 AM EDT) WBC 8.3 4.8 - 10.8 K/mcL LAB HEMETOLOGY METHOD 08/02/2024 9:01 AM EDT [facility] RBC 2.40(L) 4.50 - 5.50 M/mcL LAB HEMETOLOGY METHOD 08/02/2024 9:01 AM EDT [facility] Hemoglobin 9.1(L) 13.5 - 17.5 g/dL LAB HEMETOLOGY METHOD 08/02/2024 9:01 AM EDT [facility] Hematocrit 28.0(L) 42.0 - 54.0 % LAB HEMETOLOGY METHOD 08/02/2024 9:01 AM EDT [facility] MCV 114.8(H) 79.0 - 98.0 FL LAB HEMETOLOGY METHOD 08/02/2024 [facility] MCH 37.3(H) 27.0 - 32.0 pcg LAB HEMETOLOGY METHOD 08/02/2024 9:01 AM EDT [facility] MCHC 32.5 32.0 - 37.0 g/dL LAB HEMETOLOGY METHOD 08/02/2024 9:01 AM [facility] RDW 14.6 11.0 - 15.0 % LAB HEMETOLOGY METHOD 08/02/2024 9:01 AM [facility] Platelets 199 130 - 400 K/mcL LAB HEMETOLOGY METHOD 08/02/2024 9:01 AM EDT [facility] MPV 11.2(H) 7.0 - 11.0 FL LAB HEMETOLOGY METHOD 08/02/2024 9[facility] NRBC 0.0 <1.0 % LAB HEMETOLOGY METHOD 08/02/2024 9:01 AM [facility] NRBC Absolute 0.00 <0.10 K/mcL LAB HEMETOLOGY METHOD 08/02/2024 9:01 AM [facility] Blood Venous blood specimen / Unknown Venipuncture / Unknown 08/02/2024 4:51 AM EDT 08/02/2024 8:03 AM EDT us May Stacy MD LAB BLOOD ORDERABLES Fin al Result [facility] [address] [place] [address], documented in this encounter Visit Diagnoses Diagnosis Essential (primary) hypertension Unspecified essential hypertension documented in this encounter Care Teams Skill Labor Relationship Specialty Start Date End Date Evelyn Ibrahim MD [address] [place] [place] [phone] PCP - General Internal Medicine 04/11/21 documented as of this encounter
--- OUTSIDE RECORDS SUMMARY | 2024-11-29 15:11 | XMS_ITS | Clinical Summary ---
Author Organization [facility] Address [address] [place] [address] Phone Care Team Providers Care Cigar Wrapper Name Role Phone Evelyn Ibrahim MD Primary Care Provider [phone] Allergies Active Allergy Reactions Criticality Noted Date [...] 03/08/2014 COPD (chronic obstructive pu lmonary disease) ([facility] V24, [facility] V28) 03/09/2013 Depression 03/09/2013 GERD (gastroesophageal reflux disease) 4 HTN (hypertension) 03/09/2013 Insomnia 03/09/2013 Encounters Date Type Department Care Team Description 11/08/2024 Telephone Lung Screening Program - [address] [address] Amalia Bernal MA from Last 3 Months Immunizations Immunization Administration Dates Next Due Influenza trivalent, 0.5mL, [...] DX:Anxiety COPD (chronic obstructive pu lmonary disease) ([facility] V24, [facility] V28) 03/09/2013 DX:COPD (chronic o bstructive pulmonary disease) ([facility]) Depression 03/09/2013 DX:Depression GERD (gastroesophageal [...] Care Team (Late st Contact Info) Description 12/02/2024 9:30 AM EDT Appointment [facility] CT Scan [address] [place] [address] Health Maintenance Due Date Last [...] Td or Tdap) 08/21/2033 08/22/2023, 03/08/2014, 10/16/2006 RSV Immunization Adult Patients (1 - 1-dose 75+ series) 02/27/2044 HIB Vaccines Aged Out No longer eligi [...] EDT Essential (primary) hypertension Unspecified atrial fibrillation ([facility] V24, [facility] V28) Chronic obstructive pulmonary disease, unspecified ([facility] V24, [facility] V28) Nutritional anemia, unspecified Alcohol dependence with withdrawal, unspecified ([facility] V24, [facility] V28) LIPID PANEL Routine 08/03/2019 from [...] MD LAB BLOOD ORDERABLES Fin al Result [facility] [address] [place] [address], [place] [phone] * Lipid panel (08/03/2019) LDL/HDL Ratio 4 [...] MEDICAID [place] AUTO GENERIC Care Teams Cigar Wrapper Relationship Specialty Start Date End Date Evelyn Ibrahim MD [address] [facility] [address] [place] [address] PCP - General Internal Medicine 04/11/21
--- OUTSIDE RECORDS SUMMARY | 2024-11-29 15:11 | XMS_ITS | Encounter Summary ---
Author Organization [facility] Address [address] [place] [address] Care Team Providers Care Tug Captain Name Role Phone Evelyn Ibrahim MD Primary Care Provider [phone] Encounter Details Date Type Department Care Team (Late Contact Info) Description 08/11/2024 Lab Requisition [facility] - Main Lab [address] [facility] [place] [phone] May Stacy MD [address] [phone] Essential (primary) hypertension; Unspecified atrial fibrillation (CMS/HCC V24, CMS/HCC V28); Chronic obstructive pulmonary disease, unspecified (CMS/HCC V24, CMS/HCC V28); Nutritional anemia, unspecified; Alcohol dependence with withdrawal, unspecified (CMS/HCC V24, [facility] V28) Social History Tobacco Use Types Packs/Day [...] Info) Description 12/02/2024 9:30 AM EDT Appointment [facility] CT Scan [address] [place] [address] documented as of this encounter Visit Diagnoses Diagnosis Essential (primary) hypertension Unspecified essential hypertension Unspecified atrial fibrillation ([facility] V24, [facility] V28) Chronic obstructive pulmonary disease, unspecified ([facility] V24, [facility] V28) Nutritional anemia, unspecified Alcohol dependence with withdrawal, unspecified ([facility] V24, [facility] V28) documented in this encounter Care Teams Tug Captain Relationship Specialty Start Date End Date Evelyn Ibrahim MD [address] [place] [id number] PCP - General Internal Medicine 04/11/21 documented as of this encounter
--- OUTSIDE RECORDS SUMMARY | 2024-11-29 15:11 | XMS_ITS | Encounter Summary ---
Author Organization [facility] Address [address] [place] [address] Care Team Providers Care Power Generation Plant Operator Name Role Phone Evelyn Ibrahim MD Primary Care Provider [phone] Encounter Details Date Type Department Care Team (Late Contact Info) Description 08/04/2024 Lab Requisition [facility] - Main Lab [address] [facility] [place] [phone] May Stacy MD [address] [address] Essential (primary) hypertension; Unspecified atrial fibrillation (CMS/HCC V24, CMS/HCC V28); Chronic obstructive pulmonary disease, unspecified (CMS/HCC V24, CMS/HCC V28); Nutritional anemia, unspecified; Alcohol dependence with withdrawal, unspecified ([facility] V24, [facility] V28) Social History Tobacco Use Types Packs/Day [...] Info) Description 12/02/2024 9:30 AM EDT Appointment [facility] CT Scan [address] [place] [address] documented as of this encounter [...] LAB CHEMISTRY METHOD 08/07/2024 12:02 PM EDT [facility] Blood Venous blood specimen / Unknown Venipuncture / Unknown 08/07/2024 6:25 AM EDT 08/07/2024 10:30 AM EDT May Stacy MD LAB BLOOD ORDERABLES Fin al Result Performing Organization Address [facility]/ZIP Co de Phone Number [facility] [address] [place] [address], [place] [phone] * Digoxin level (08/07/2024 6:25 AM EDT) Pathologist [facility] Digoxin Lvl 0.6 0.5 - 2.0 ng/mL LAB CHEMISTRY METHOD 08/07/2024 12:13 PM EDT [facility] Blood Venous blood specimen / Unknown Venipuncture / Unknown 08/07/2024 6:25 AM EDT 08/07/2024 10:30 AM EDT May Stacy MD LAB BLOOD ORDERABLES Fin al Result Performing Organization Address [facility] de Phone Number [facility] [address] [place] [address], [place] [phone] * (ABNORMAL) Comprehensive metabolic panel (08/07/2024 6:25 AM EDT) [facility] Sodium 139 133 - 145 mmol/L LAB CHEMISTRY METHOD 08/07/2024 12:05 PM [facility] Potassium 3.6 3.5 - 5.5 mmol/L LAB CHEMISTRY METHOD 08/07/2024 12:05 PM [facility] Chloride 103 96 - 110 mmol/L LAB CHEMISTRY METHOD 08/07/2024 12:05 PM [facility] CO2 29 21 - 32 mmol/L LAB CHEMISTRY METHOD 08/07/2024 12:05 PM [facility] Anion Gap 7 3 - 11 LAB CHEMISTRY METHOD 08/07/2024 12:05 PM [facility] Glucose 47(L) 70 - 100 mg/dL LAB CHEMISTRY METHOD 08/07/2024 12:05 PM [facility] BUN 7 5 - 25 mg/dL LAB CHEMISTRY METHOD 08/07/2024 12:05 PM [facility] Creatinine 0.43(L) 0.70 - 1.30 mg/dL LAB CHEMISTRY METHOD 08/07/2024 12:05 PM [facility] eGFR 126 >=60 mL/min/1. 73m2 LAB CHEMISTRY METHOD 08/07/2024 12:05 PM [facility] Comment:Calculation based on the Chronic Kidney Disease Epidemiology Collaboration (CKD-EPI) equation refit without adjustment for race. BUN/Creatinine Ratio 16.3 LAB CHEMISTRY METHOD 08/07/2024 12:05 PM [facility] Calcium 8.3(L) 8.5 - 10.5 mg/dL LAB CHEMISTRY METHOD 08/07/2024 12:05 PM [facility] AST (SGOT) 54(H) 10 - 42 unit/L LAB CHEMISTRY METHOD 08/07/2024 12:05 [facility] ALT (SGPT) 29 10 - 60 unit/L LAB CHEMISTRY METHOD 08/07/2024 12:05 PM [facility] Alkaline Phosphatase 297(H) 42 - 121 unit/L LAB CHEMISTRY METHOD 08/07/2024 12:05 PM [facility] Total Protein 5.7(L) 6.0 - 8.0 g/dL LAB CHEMISTRY METHOD 08/07/2024 12:05 PM [facility] Albumin 2.0(L) 3.2 - 5.0 g/dL LAB CHEMISTRY METHOD 08/07/2024 12:05 PM [facility] Total Bilirubin 0.7 0.0 - 1.4 mg/dL LAB CHEMISTRY METHOD 08/07/2024 12:05 PM [facility] Blood Venous blood specimen / Unknown Venipuncture / Unknown 08/07/2024 6:25 AM EDT 08/07/2024 10:30 AM EDT us May Stacy MD LAB BLOOD ORDERABLES Fin al Result [facility] [address] [place] [address], [place] [phone] * (ABNORMAL) Complete blood count (08/07/2024 6:25 AM EDT) [facility] WBC 8.8 4.8 - 10.8 K/mcL LAB HEMETOLOGY METHOD 08/07/2024 2:21 PM EDT [facility] RBC 2.60(L) 4.50 - 5.50 M/mcL LAB HEMETOLOGY METHOD [facility] Hemoglobin 9.5(L) 13.5 - 17.5 g/dL LAB HEMETOLOGY METHOD 08/07/2024 2:21 PM EDT [facility] Hematocrit 30.7(L) 42.0 - 54.0 % LAB HEMETOLOGY METHOD 08/07/2024 2:21 PM EDT [facility] MCV 118.5(H) 79.0 - 98.0 FL LAB HEMETOLOGY METHOD 08/07/2024 2:21 PM [facility] MCH 36.7(H) 27.0 - 32.0 pcg LAB HEMETOLOGY METHOD 08/07/2024 2:21 PM EDT [facility] MCHC 30.9(L) 32.0 - 37.0 g/dL LAB HEMETOLOGY METHOD 08/07/2024 2:21 PM EDT [facility] RDW 14.5 11.0 - 15.0 % LAB HEMETOLOGY METHOD 08/07/2024 2:21 PM [facility] Platelets 288 130 - 400 K/mcL LAB HEMETOLOGY METHOD 08/07/2024 2:21 PM EDT [facility] MPV 10.4 7.0 - 11.0 FL LAB HEMETOLOGY METHOD 08/07/2024 2:21 PM EDT [facility] NRBC 0.0 <1.0 % LAB HEMETOLOGY METHOD 08/07/2024 2:21 PM EDT [facility] NRBC Absolute 0.00 <0.10 K/mcL LAB HEMETOLOGY METHOD 08/07/2024 2:21 PM EDT [facility] Blood Venous blood specimen / Unknown Venipuncture / Unknown 08/07/2024 6:25 AM EDT 08/07/2024 10:31 AM EDT us May Stacy MD LAB BLOOD ORDERABLES Fin al Result [facility] [address] [place] [address], documented in this encounter Visit Diagnoses Diagnosis Essential (primary) hypertension Unspecified essential hypertension Unspecified atrial fibrillation (CMS/HCC V24, CMS/HCC V28) Chronic obstructive pulmonary disease, unspecified (CMS/HCC V24, CMS/HCC V28) Nutritional anemia, unspecified Alcohol dependence with withdrawal, unspecified (CMS/HCC V24, CMS/HCC V28) documented in this encounter Care Teams Power Generation Plant Operator Relationship Specialty Start Date End Date Evelyn Ibrahim MD [address] [place] [id number] PCP - General Internal Medicine 04/11/21 documented as of this encounter
[2024-11-29 16:27] LABS: Anion Gap 8 (12-20); Blood Urea Nitrogen 12 mg/dL (9-16); Calcium 9.4 mg/dL (8.4-10.2); Carbon Dioxide 33 mmol/L (22-29); Chloride 102 mmol/L (96-108); Estimated Glomerular Filt Rate > 60; Magnesium 1.6 mg/dL (1.6-2.6); Potassium 4.3 mmol/L (3.3-5.1); Sodium 139 mmol/L (135-145)
[2024-12-08 19:59] LABS: Testosterone, Free 8.1 pg/mL (35.0-155.0)
== END 2024-11-29 13:57 | disposition home or self-care (01) ==
LOC: HO.HMGCLDS 13:56
PROVIDERS: Internal Medicine Nephrology; PCP Internal Medicine; Referring Provider Nurse Practitioner Family; Visit Provider Nurse Practitioner Family
DX: E87.6 Hypokalemia (principal); E83.42 Hypomagnesemia; N52.9 Male erectile dysfunction, unspecified
CPT/HCPCS: 36415; 80051; 82310; 82565; 83735; 84402; 84403; 84520

== ENCOUNTER 2024-11-30 10:29 | Outpatient (AMB) | payer MEDICARE, MEDICAID, SELFPAY ==
[2024-11-30 10:36] VITALS: BP 102/50; PULSE 56; RESP 18; TEMP 36.3; O2SAT 94; BMI 20.9
--- NOTE | 2024-11-30 10:36 | A.OFFPC_ITS ---
Vital Signs 11/30/24 10:36 Height 6 ft Weight 154 lb 6 oz BMI 20.9 BP 102/50 L Blood Pressure Location Lt brachial Position Sitting Respiration 18 Pulse 56 Pulse Source Pulse Oximeter Temp 97.3 F Temp Source Temporal Artery Scan Pulse Oximetry (%) 94 Oxygen Delivery Method Room Air Intake Visit Reasons: [place] [facility] cataract 12/11 lt & 01/03 RT Treating Machine Operator Required: No Accompanied by: Self / Same As Patient Allergies morphine Allergy (Severe, Verified 11/30/24 10:37) Anaphylaxis acetaminophen (From Tylenol) Allergy (Intermediate, Verified 11/30/24 10:37) Gastrointestinal Upset Tobacco use date assessed: 11/30/24 Dental Screening Dental Screen Date: 11/30/24 Did you have a dental visit in the last 12 months?: No Did you have a dental problem in the last 6 months where you did not have access to dental care?: No Was dental information given to patient?: No PFSH Medical History Alcohol use disorder Hypomagnesemia Alcohol use Substance abuse in family Back pain Constipation Bipolar 1 disorder SOB (shortness of breath) Afib Myocardial infarction Tubular adenoma 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 Mother Chronic a-fib Sister Chronic a-fib Breast cancer Ovarian cancer Social History Household Members: Significant Other Housing: Apartment Are you a primary home care consultant to a significant other at home: No Do you presently have visiting nurse or other home services: No Alcohol intake: current Alcohol intake frequency: 3 or more drinks per day Alcohol type: hard liquor Comment: REFUSING BED ALARM Patient Tobacco Use Status: Current everyday Tobacco user Tobacco use type: Cigarette Cigarette Packs Per Day: 0.5 Cigarettes Per Day: 10 e-Cigarette/Vaping Use: Never Used Second Hand Smoke Exposure: Yes Advance Directives Date on File: 07/28/22 service: No Current occupational status: disabled Cognitive needs: No Hearing needs: No Vision needs: Yes Questionnaire Thrive Questionnaire Date Thrive assessed: 07/27/24 AGUSTÍN-7 AMB Questionnaire AGUSTÍN-7 Date AGUSTÍN - 7 assessed: 04/04/24 Source: Developed by Drs. Uzair Napoles, Coretta Bernal, Saul Resendiz and colleagues, with an educational mabel from [employer]. Physical exam (Primary Care) Tobacco/Smoking Status: Tobacco use Status Tobacco use date assessed 09/18/24 09/18/24 14:19 Patient Tobacco Use Status Current everyday Tobacco 09/18/24 14:19 Tobacco use type Cigarette 09/18/24 14:19 e-Cigarette/Vaping Use Never Used 09/18/24 14:19 Thrive Assessment: Date of Thrive Assessment Date Thrive assessed 07/27/24 09/18/24 14:19 Coding
--- NOTE | 2024-11-30 11:01 | A.OFFPC_ITS ---
Vital Signs 11/30/24 10:36 Height 6 ft Weight 154 lb 6 oz BMI 20.9 BP 102/50 L Blood Pressure Location Lt brachial Position Sitting Respiration 18 Pulse 56 Pulse Source Pulse Oximeter Temp 97.3 F Temp Source Temporal Artery Scan Pulse Oximetry (%) 94 Oxygen Delivery Method Room Air Intake Visit Reasons: [facility] cataract 12/11 lt & 11/5 RT Allergies morphine Allergy (Severe, Verified 11/30/24 11:02) Anaphylaxis acetaminophen (From Tylenol) Allergy (Intermediate, Verified 11/30/24 11:02) Gastrointestinal Upset Medication List - Last Reconciled 11/30/24 by ATA Garcia albuterol sulfate 90 mcg/actuation (Ventolin HFA) 90 mcg inhalation Q4-6H PRN atorvastatin 20 mg PO BEDTIME bisacodyl (Dulcolax (bisacodyl)) 10 mg (2 x 5 mg) PO BEDTIME buprenorphine-naloxone 8-2 mg 1 tab sublingual TID clonazepam (Klonopin) 1 mg PO BID PRN digoxin 125 mcg PO DAILY diltiazem HCl ER (Tiadylt ER) 300 mg PO DAILY rmtitysrsmv-mbkiucjlh-ybivvdlz 200-62.5-25 mcg (Trelegy Ellipta) 1 ea inhalation DAILY folic acid 1 mg PO DAILY magnesium oxide 400 mg PO BIDPC 30 days metoprolol tartrate 100 mg PO BID 90 days pantoprazole 40 mg PO DAILY@0630 [portable oxygen via [place] As directed] potassium chloride ER 20 mEq PO BID prucalopride (Motegrity) 2 mg PO DAILY Tobacco use date assessed: 11/30/24 Dental Screening Dental Screen Date: 11/30/24 Did you have a dental visit in the last 12 months?: No Did you have a dental problem in the last 6 months where you did not have access to dental care?: No Was dental information given to patient?: No HPI [facility] cataract 12/11 lt & 01/03 RT HPI Details Patient is a 54-year-old male with significant past medical history of COPD, hypokalemia, tobacco use, a flutter, history of cocaine abuse, cervical spondylosis, hypogonadism in male, asthma, HTN, hx of OK Patient of Dr. Collier. He was last seen in office on 09/18/2024 Patient is presenting preop clearance for cataract surgery. Patient reports longstanding cataracts worse in his left eye, reports that he feels like he has a film over his left eye. Surgery: Cataract surgery Date: left eye 12/11/24 and right eye 01/03/25. Surgeon/location: Dr. Schwarz at [facility] [place] Anesthesia: Mac. The patient reports having lumbar spinal fusion the past under general anesthesia without any issues. The patient denies any post surgery hypothermia or clotting disorder; however: The patient was on apixaban and was taken off he reported about 6-7 months ago due to low platelets. His platelets has since normalized. Medical history is significant for a flutter; he was cardioverted on 12/16/2023 resulted into sinus rhythm. He is currently on digoxin 125 mcg daily, metoprolol tartrate 100 mg b.i.d., and diltiazem ER 300 mg daily. Patient is followed by [facility] cardiology. Dr. Koroma, who he said recently left the practice and he will be following up with another provider that he has not met as yet. The patient has a history of COPD and wears 2 L of oxygen at nighttime. Reports that he does have a portable that he could use as needed, however he has been without this. However, the patient did walked in the office with a portable concentrator that was taken off once he got into the exam room. Per patient, he brother bought this one for over 300 dollars, so if figured that he utilizes it. Breathing was unlabored and clear on exam. EKG done in office today a sinus Royal without any ischemia. Recent labs reviewed. 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 Mother Chronic a-fib Sister Chronic a-fib Breast cancer Ovarian cancer Social History Household Members: Significant Other Housing: Apartment Are you a primary child care leader to a significant other at home: No Do you presently have visiting nurse or other home services: No Alcohol intake: current Alcohol intake frequency: 3 or more drinks per day Alcohol type: hard liquor Comment: REFUSING BED ALARM Patient Tobacco Use Status: Current everyday Tobacco user Tobacco use type: Cigarette Cigarette Packs Per Day: 0.5 Cigarettes Per Day: 10 e-Cigarette/Vaping Use: Never Used Second Hand Smoke Exposure: Yes Advance Directives Date on File: 07/28/22 service: No Current occupational status: disabled Cognitive needs: No Hearing needs: No Vision needs: Yes Questionnaire Thrive Questionnaire Date Thrive assessed: 07/27/24 AGUSTÍN-7 AMB Questionnaire AGUSTÍN-7 Date AGUSTÍN - 7 assessed: 04/04/24 Source: Developed by Drs. Uzair Napoles, Coretta Bernal, Saul Resendiz and colleagues, with an educational mabel from [employer]. Review of Systems Const Denies headache(s) Eyes Denies loss of vision ENT Denies vertigo, Denies dizziness, Denies headache(s) and Denies sore throat Card Denies chest pain, Denies leg edema and Denies lightheadedness Resp Denies cough, Denies hemoptysis and Denies wheezing GI Denies abdominal pain, Denies melena, Denies constipation, Denies diarrhea and Denies vomiting Denies dysuria, Denies urinary frequency and Denies urinary urgency Musc Reports back pain, Denies arthralgias, Denies joint swelling, Denies numbness and Denies tingling Neuro Denies Abnormal speech present, Denies behavioral changes, Denies vertigo, Denies dizziness, Denies headache(s), Denies loss of vision, Denies memory loss, Denies numbness and Denies tingling Psych Denies anxiety, Denies behavioral changes, Denies depression, Denies memory loss and Denies panic attacks Brad/Lymph Denies easy bleeding and Denies easy bruising Aller/Immun Denies wheezing Physical exam (Primary Care) Vital Signs: Last Vital Signs Temp 97.3 F 11/30/24 10:36 Pulse 56 11/30/24 10:36 Resp 18 11/30/24 10:36 BP 102/50 L 11/30/24 10:36 Pulse Ox 94 11/30/24 10:36 Oxygen Delivery Method Room Air 11/30/24 10:36 BMI result Body Mass Index 20.9 Tobacco/Smoking Status: Tobacco use Status Tobacco use date assessed 11/30/24 11/30/24 11:09 Patient Tobacco Use Status Current everyday Tobacco 11/30/24 11:09 Tobacco use type Cigarette 11/30/24 11:09 e-Cigarette/Vaping Use Never Used 11/30/24 11:09 Thrive Assessment: Date of Thrive Assessment Date Thrive assessed 07/27/24 11/30/24 11:09 Const General: healthy appearing, no acute distress, alert and awake Nutritional Appearance: well nourished Orientation/consciousness: oriented to person, oriented to place and oriented to time HENMT Ears: TM's normal bilaterally General nose exam: Normal nasal mucous membranes and turbinates present Eyes Conjunctivae: conjunctivae normal Sclerae: sclerae normal Pupils: Equal, round and reactive pupils present Neck Neck: Yes no lymphadenopathy and Yes no JVD Thyroid: Thyroid normal Carotids: no bruits Resp Effort & Inspection: normal respiratory effort and not tachypneic Auscultation: no crackles, no rales, no rhonchi and no wheezes Cardio Rate: regular rate Rhythm: regular rhythm Heart sounds: no murmurs and normal S1 and S2 GI Palpation (GI): Soft to palpation, nontender, no hepatomegaly and no spleno megaly Auscultation: normal bowel sounds Skin General skin exam: no rashes or lesions noted and dry skin Neuro General: oriented to person, oriented to place and oriented to time Cranial nerves: Yes Equal, round and reactive pupils present Speech: No Abnormal speech present Gait exam (Neuro): Normal gait present Motor exam (neuro): no tremor noted Extrem Right upper extremity: full ROM Left upper extremity: full ROM Right lower extremity: full ROM; no edema Left lower extremity: full ROM; no edema Psych Mental Status: mental status grossly normal Speech and movement: Normal speech and movement present Affect: normal affect Attitude: cooperative Thought process: Normal thought process present Results Reviewed Results Reviewed: Laboratory Tests 10/05/24 11/14/24 11/29/24 14:18 10:30 14:00 WBC 9.2 RBC 3.23 L Hgb 11.5 L Hct 33.2 L MCV 102.8 H MCH 35.6 H MCHC 34.6 RDW 16.2 H Plt Count 162 D MPV 10.5 Sodium 139 Potassium 4.3 Chloride 102 Carbon Dioxide 33 H Anion Gap 8 L BUN 12 Creatinine 0.61 Estimated GFR > 60 Calcium 9.4 Magnesium 1.6 Urine Color Yellow Urine Appearance Clear Urine pH 8.0 Ur Specific Helena 1.015 Urine Protein Negative Urine Glucose (UA) Negative Urine Ketones Negative Urine Blood Negative Urine Nitrite Negative Ur Leukocyte Esterase Negative Coding Level of Care Code Est Pt Level 4 (04772) Diagnoses Preoperative clearance Z01.818 Cataract of both eyes, unspecified cataract type H26.9 Cataract type: unspecified Laterality: bilateral Substance abuse F19.10 Hypertension, unspecified type I10 Hypertension type: unspecified Typical atrial flutter I48.3 Atrial flutter type: typical Thrombocytopenia D69.6 Hypogonadism in male E29.1 Hypokalemia E87.6 Low back pain, unspecified back pain laterality, unspecified chronicity, unspecified whether sciatica present M54.5 Chronicity: unspecified Back pain laterality: unspecified Sciatica presence: unspecified whether sciatica present Chronic obstructive pulmonary disease, unspecified COPD type J44.9 COPD type: unspecified COPD Cigarette smoker F17.210 S/P cardiac cath Z98.890 Time Spent (min) 43 Assessment & Plan Assessment & Plan (1) Preoperative clearance: Code(s): Z01.818 - Encounter for other preprocedural examination Category: Medical Plan: Recent labs reviewed, EKG done in office-SINUS ROYAL without any ischemia. Regarding preop clearance, the patient is at acceptable risk for proposed surgery. Reviewed with the patient that no surgery is completely free of risk and that this examination is to assist the surgeon in reviewing informed consent. MLS6Jn=3.2% The patient was on apixaban and was taken off he reported about 6-7 months ago due to low platelets by his business solutions consultant. His platelets has since normalized. He has been monitored by his Cardiology. (2) Cataract: Code(s): H26.9 - Unspecified cataract Category: Medical Qualifiers: Cataract type: unspecified Laterality: bilateral Qualified Code(s): H26.9 - Unspecified cataract Plan: Patient has planned cataract surgery starting with the left eye then right after. (3) Substance abuse: Code(s): F19.10 - Other psychoactive substance abuse, uncomplicated Category: Medical Plan: The patient should continue Suboxone therapy and seek support for reducing reliance on the medication. (4) Hypertension: Code(s): I10 - Essential (primary) hypertension Category: Medical Qualifiers: Hypertension type: unspecified Qualified Code(s): I10 - Essential (primary) hypertension Plan: Blood pressure was 102/50. Systolic goal of 120 mm hg or less Reinforced low-salt diet Continue metoprolol tartrate 100 mg b.i.d., diltiazem ER 300 mg daily (5) Atrial flutter: Code(s): I48.92 - Unspecified atrial flutter Category: Medical Qualifiers: Atrial flutter type: typical Qualified Code(s): I48.3 - Typical atrial flutter Plan: The patient was cardioverted on 12/16/2023 resulted into sinus rhythm. He was on flecainide prior. Now the patient is on digoxin 125 mcg daily, metoprolol tartrate 100 mg b.i.d., diltiazem 300 mg daily. Continue atorvastatin 20 mg at bedtime. Follow up with Cardiology [facility] cardiology as scheduled. (6) Thrombocytopenia: Code(s): D69.6 - Thrombocytopenia, unspecified Category: Medical Plan: His most recent platelet this 162. This was in the 60s with the patient was on apixaban and this was discontinued by Cardiology, reportedly was 6-7 months ago. (7) Hypogonadism in male: Code(s): E29.1 - Testicular hypofunction Category: Medical Plan: His last testosterone was 359 and he had this checked yesterday, awaiting on results Patient was encouraged to continue avoiding alcohol and illicit drugs to improve erectile dysfunction, low libido, as well as his overall health and well-being. He was on Cialis and was recommended come off this by his business solutions consultant. Follow up with Urology as scheduled (8) Hypokalemia: Code(s): E87.6 - Hypokalemia Category: Medical Plan: Continue potassium chloride ER 20 mEq b.i.d. Follow up with Nephrology as scheduled (9) Lower back pain: Code(s): M54.5 - Low back pain Category: Medical Qualifiers: Chronicity: unspecified Back pain laterality: unspecified Sciatica presence: unspecified whether sciatica present Qualified Code(s): M54.5 - Low back pain Plan: Avoid bed rest (including sitting in bed) and to simply limit painful activities; improvement usually occurs within a few weeks May use cool packs; may alternate cold and hot packs Exercises a alexis (e.g., walking, swimming, cycling) as soon as possible, starting with 5-10 min and walk-in up to 20-30 minute q.day Abdominal core and back strengthening exercises may help to prevent future problems (10) COPD (chronic obstructive pulmonary disease): Code(s): J44.9 - Chronic obstructive pulmonary disease, unspecified Category: Medical Qualifiers: COPD type: unspecified COPD Qualified Code(s): J44.9 - Chronic obstructive pulmonary disease, unspecified Plan: The patient should continue using supplemental oxygen as needed and monitor respiratory symptoms. Continue albuterol sulfate 90 mcg/actuation 90 mcg inhalation Q 4-6 p.r.n., Trelegy Ellipta 1 ea inhalation daily (11) Cigarette smoker: Code(s): F17.210 - Nicotine dependence, cigarettes, uncomplicated Category: Social Hx Plan: Patient reports that he is smoking about 10-12 cigarettes a day. Encouraged smoking cessation (12) S/P cardiac cath: Comment: 07/28/22 LM, LCx, RCA normal, LAD minimal irregularities Code(s): Z98.890 - Other specified postprocedural states Category: Surgical Plan: The patient has a history of heart attack. Encouraged to continue statin, managed blood pressure and stop smoking.
--- OUTSIDE RECORDS SUMMARY | 2024-11-30 12:13 | XMS_ITS | Encounter Summary ---
Author Organization [facility] Address [address] [place] [address] Care Team Providers Care Director Semiconductor Name Role Phone Evelyn Ibrahim MD Primary Care Provider [phone] Encounter Details Date Type Department Care Team ([facility] Contact Info) Description 08/02/2024 Lab Requisition [facility] - Main Lab [address] [facility] [place] [phone] May Stacy MD [address] [address] Essential (primary) hypertension Social History Tobacco Use [...] Info) Description 12/02/2024 9:[address] [facility] Scan [address] [place] [address] documented as of this encounter Procedures Procedure Name Priority Date/Time Associated Diagnosis Comments COMPLETE BLOOD COUNT Routine 08/02/2024 4:51 AM EDT Essential (primary) hypertension COMPREHENSIVE METABOLIC PANEL Routine 08/02/2024 4:51 AM EDT Essential (primary) hypertension documented in this encounter Results * (ABNORMAL) Comprehensive metabolic panel (08/02/2024 4:51 AM EDT) Sodium 138 133 - 145 mmol/L LAB CHEMISTRY METHOD 08/02/2024 9:04 AM [facility] Potassium 4.0 3.5 - 5.5 mmol/L LAB CHEMISTRY METHOD 08/02/2024 9:04 AM [facility] Chloride 103 96 - 110 mmol/L LAB CHEMISTRY METHOD 08/02/2024 9:04 AM [facility] CO2 29 21 - 32 mmol/L LAB CHEMISTRY METHOD 08/02/2024 9:04 AM [facility] Anion Gap 6 3 - 11 LAB CHEMISTRY METHOD 08/02/2024 9:04 AM [facility] Glucose 73 70 - 100 mg/dL LAB CHEMISTRY METHOD 08/02/2024 9:04 AM [facility] BUN 5 5 - 25 mg/dL LAB CHEMISTRY METHOD 08/02/2024 9:04 AM [facility] Creatinine 0.38(L) 0.70 - 1.30 mg/dL LAB CHEMISTRY METHOD 08/02/2024 9:04 AM [facility] eGFR 131 >=60 mL/min/1. 73m2 LAB CHEMISTRY METHOD 08/02/2024 9:04 AM [facility] Comment:Calculation based on the Chronic Kidney Disease Epidemiology Collaboration (CKD-EPI) equation refit without adjustment for race. BUN/Creatinine Ratio 13.2 LAB CHEMISTRY METHOD 08/02/2024 9:04 AM [facility] Calcium 7.9(L) 8.5 - 10.5 mg/dL LAB CHEMISTRY METHOD 08/02/2024 9:04 AM [facility] AST (SGOT) 65(H) 10 - 42 unit/L LAB CHEMISTRY METHOD 08/02/2024 9:04 AM [facility] ALT (SGPT) 35 10 - 60 unit/L LAB CHEMISTRY METHOD 08/02/2024 9:04 AM EDT [facility] Alkaline Phosphatase 412(H) 42 - 121 unit/L LAB CHEMISTRY METHOD 08/02/2024 9:04 AM EDT [facility] Total Protein 5.3(L) 6.0 - 8.0 g/dL [facility] Albumin 1.8(L) 3.2 - 5.0 g/dL LAB CHEMISTRY METHOD 08/02/2024 9:04 AM [facility] Total Bilirubin 1.0 0.0 - 1.4 mg/dL LAB CHEMISTRY METHOD 08/02/2024 9:04 AM [facility] Blood Venous blood specimen / Unknown Venipuncture / Unknown 08/02/2024 4:51 AM EDT 08/02/2024 8:03 AM EDT us May Stacy MD LAB BLOOD ORDERABLES Fin al Result [facility] [address] [place] [address], [place] [phone] * (ABNORMAL) Complete blood count (08/02/2024 4:51 AM EDT) WBC 8.3 4.8 - 10.8 K/mcL LAB HEMETOLOGY METHOD 08/02/2024 9:01 AM EDT [facility] RBC 2.40(L) 4.50 - 5.50 M/mcL LAB HEMETOLOGY METHOD 08/02/2024 9:01 AM EDT [facility] Hemoglobin 9.1(L) 13.5 - 17.5 g/dL LAB HEMETOLOGY METHOD 08/02/2024 9:01 AM EDT [facility] Hematocrit 28.0(L) 42.0 - 54.0 % LAB HEMETOLOGY METHOD 08/02/2024 9:01 AM EDT [facility] MCV 114.8(H) 79.0 - 98.0 FL LAB HEMETOLOGY METHOD [facility] MCH 37.3(H) 27.0 - 32.0 pcg LAB HEMETOLOGY METHOD 08/02/2024 9:01 AM EDT [facility] MCHC 32.5 32.0 - 37.0 g/dL LAB HEMETOLOGY METHOD 08/02/2024 9:01 AM [facility] RDW 14.6 11.0 - 15.0 % LAB HEMETOLOGY METHOD 08/02/2024 9:01 AM [facility] Platelets 199 130 - 400 K/mcL LAB HEMETOLOGY METHOD 08/02/2024 9:01 AM EDT [facility] MPV 11.2(H) 7.0 - 11.0 FL LAB HEMETOLOGY METHOD [facility] NRBC 0.0 <1.0 % LAB HEMETOLOGY METHOD 08/02/2024 9:01 AM [facility] NRBC Absolute 0.00 <0.10 K/mcL LAB HEMETOLOGY METHOD 08/02/2024 9:01 AM [facility] Blood Venous blood specimen / Unknown Venipuncture / Unknown 08/02/2024 4:51 AM EDT 08/02/2024 8:03 AM EDT us May Stacy MD LAB BLOOD ORDERABLES Fin al Result [facility] [address] [place] [address], documented in this encounter Visit Diagnoses Diagnosis Essential (primary) hypertension Unspecified essential hypertension documented in this encounter Care Teams Director Semiconductor Relationship Specialty Start Date End Date Evelyn Ibrahim MD [address] [phone] PCP - General Internal Medicine 04/11/21 documented as of this encounter
--- OUTSIDE RECORDS SUMMARY | 2024-11-30 12:13 | XMS_ITS | Encounter Summary ---
Author Organization [facility] Address [address] [place] [address] Care Team Providers Care Bottle Booth Attendant Name Role Phone Evelyn Ibrahim MD Primary Care Provider [phone] Encounter Details Date Type Department Care Team (Late Contact Info) Description 08/11/2024 Lab Requisition [facility] - Main Lab [address] [facility] [place] [phone] May Stacy MD [address] [phone] Essential (primary) hypertension; Unspecified atrial fibrillation (CMS/HCC V24, CMS/HCC V28); Chronic obstructive pulmonary disease, unspecified (CMS/HCC V24, CMS/HCC V28); Nutritional anemia, unspecified; Alcohol dependence with withdrawal, unspecified (CMS/HCC V24, [facility] V28) Social History Tobacco Use [...] Info) Description 12/02/2024 9:30 AM EDT Appointment [facility] CT Scan [address] [place] [address] documented as of this encounter Visit Diagnoses Diagnosis Essential (primary) hypertension Unspecified essential hypertension Unspecified atrial fibrillation ([facility] V24, [facility] V28) Chronic obstructive pulmonary disease, unspecified ([facility] V24, [facility] V28) Nutritional anemia, unspecified Alcohol dependence with withdrawal, unspecified ([facility] V24, [facility] V28) documented in this encounter Care Teams Bottle Booth Attendant Relationship Specialty Start Date End Date Evelyn Ibrahim MD [address] [place] [id number] PCP - General Internal Medicine 04/11/21 documented as of this encounter
--- OUTSIDE RECORDS SUMMARY | 2024-11-30 12:13 | XMS_ITS | Clinical Summary ---
Author Organization [address] [facility] Address [address] [place] [address] Phone Care Team Providers Care Gyroscopic Engineering Technician Name Role Phone Evelyn Ibrahim MD Primary Care Provider [phone] Allergies Active Allergy Reactions Criticality Noted Date [...] 03/08/2014 COPD (chronic obstructive pu lmonary disease) ([facility] V24, [facility] V28) 03/09/2013 Depression 03/09/2013 GERD (gastroesophageal reflux disease) 4 HTN (hypertension) 03/09/2013 Insomnia 03/09/2013 Encounters Date Type Department Care Team Description 11/08/2024 Telephone Lung Screening Program - [address] [address] Amalia Bernal MA from Last [...] DX:Anxiety COPD (chronic obstructive pu lmonary disease) ([facility] V24, [facility] V28) 03/09/2013 DX:COPD (chronic o bstructive pulmonary disease) ([facility]) Depression 03/09/2013 DX:Depression GERD (gastroesophageal [...] Info) Description 12/02/2024 9:30 AM EDT Appointment [facility] CT Scan [address] [place] [address] Health Maintenance Due Date Last [...] EDT Essential (primary) hypertension Unspecified atrial fibrillation ([facility] V24, [facility] V28) Chronic obstructive pulmonary disease, unspecified ([facility] V24, [facility] V28) Nutritional anemia, unspecified Alcohol dependence with withdrawal, unspecified ([facility] V24, [facility] V28) LIPID PANEL Routine 08/03/2019 from Last 3 Months or Most Recently Relevant to Health Maintenance Results * (ABNORMAL) Comprehensive metabolic panel (08/07/2024 6:25 AM EDT) Sodium 139 133 - 145 mmol/L LAB CHEMISTRY METHOD 08/07/2024 12:05 PM [facility] Potassium 3.6 3.5 - 5.5 mmol/L LAB CHEMISTRY METHOD 08/07/2024 12:05 PM [facility] Chloride 103 96 - 110 mmol/L LAB CHEMISTRY METHOD 08/07/2024 12:05 PM [facility] CO2 29 21 - 32 mmol/L LAB CHEMISTRY METHOD 08/07/2024 12:05 PM [facility] Anion Gap 7 3 - 11 LAB CHEMISTRY METHOD 08/07/2024 12:05 PM [facility] Glucose 47(L) 70 - 100 mg/dL LAB CHEMISTRY METHOD 08/07/2024 12:05 PM [facility] BUN 7 5 - 25 mg/dL LAB CHEMISTRY METHOD 08/07/2024 12:05 PM [facility] Creatinine 0.43(L) 0.70 - 1.30 mg/dL LAB CHEMISTRY METHOD 08/07/2024 12:05 PM [facility] eGFR 126 >=60 mL/min/1. 73m2 LAB CHEMISTRY METHOD 08/07/2024 12:05 PM [facility] Comment:Calculation based on the Chronic Kidney Disease Epidemiology Collaboration (CKD-EPI) equation refit without adjustment for race. BUN/Creatinine Ratio 16.3 LAB CHEMISTRY METHOD 08/07/2024 12:05 PM [facility] Calcium 8.3(L) 8.5 - 10.5 mg/dL LAB CHEMISTRY METHOD 08/07/2024 12:05 PM [facility] AST (SGOT) 54(H) 10 - 42 unit/L LAB CHEMISTRY METHOD 08/07/2024 12:05 PM [facility] ALT (SGPT) 29 10 - 60 unit/L LAB CHEMISTRY METHOD 08/07/2024 12:05 PM [facility] Alkaline Phosphatase 297(H) 42 - 121 unit/L LAB CHEMISTRY METHOD 08/07/2024 12:05 PM [facility] Total Protein 5.7(L) 6.0 - 8.0 g/dL LAB CHEMISTRY METHOD 08/07/2024 12:05 PM [facility] Albumin 2.0(L) 3.2 - 5.0 g/dL LAB CHEMISTRY METHOD 08/07/2024 12:05 PM [facility] Total Bilirubin 0.7 0.0 - 1.4 mg/dL LAB CHEMISTRY METHOD 08/07/2024 12:05 PM [facility] Blood Venous blood specimen / Unknown Venipuncture / Unknown 08/07/2024 6:25 AM EDT 08/07/2024 10:30 AM EDT us May Stacy MD LAB BLOOD ORDERABLES Fin al Result [facility] [address] [place] [address], [place] [phone] * Lipid panel (08/03/2019) LDL/HDL Ratio 4 [...] MEDICAID - [place] [employer] [place] Care Teams Gyroscopic Engineering Technician Relationship Specialty Start Date End Date Evelyn Ibrahim MD [address] [facility] [address] [place] [address] PCP - General Internal Medicine 04/11/21
--- OUTSIDE RECORDS SUMMARY | 2024-11-30 12:13 | XMS_ITS | Encounter Summary ---
Author Organization [facility] Address [address] [place] [address] Care Team Providers Care Escrow Officer Name Role Phone Evelyn Ibrahim MD Primary Care Provider [phone] Encounter Details Date Type Department Care Team (Late Contact Info) Description 08/04/2024 Lab Requisition [facility] - Main Lab [address] [facility] [place] [id number] May Stacy MD [address] [address] Essential (primary) hypertension; Unspecified atrial fibrillation (CMS/HCC V24, CMS/HCC V28); Chronic obstructive pulmonary disease, unspecified (CMS/HCC V24, CMS/HCC V28); Nutritional anemia, unspecified; Alcohol dependence with withdrawal, unspecified ([facility] V24, [facility] V28) Social History Tobacco Use Types Packs/Day [...] Info) Description 12/02/2024 9:30 AM EDT Appointment [facility] CT Scan [address] [place] [address] documented as of this encounter [...] LAB CHEMISTRY METHOD 08/07/2024 12:02 PM EDT [facility] Blood Venous blood specimen / Unknown Venipuncture / Unknown 08/07/2024 6:25 AM EDT 08/07/2024 10:30 AM EDT May Stacy MD LAB BLOOD ORDERABLES Fin al Result Performing Organization Address [facility]/ZIP Co de Phone Number [facility] [address] [place] [address], [place] [phone] * Digoxin level (08/07/2024 6:25 AM EDT) Pathologist [facility] Digoxin Lvl 0.6 0.5 - 2.0 ng/mL LAB CHEMISTRY METHOD 08/07/2024 12:13 PM EDT [facility] Blood Venous blood specimen / Unknown Venipuncture / Unknown 08/07/2024 6:25 AM EDT 08/07/2024 10:30 AM EDT May Stacy MD LAB BLOOD ORDERABLES Fin al Result Performing Organization Address [facility] de Phone Number [facility] [address] [place] [address], [place] [phone] * (ABNORMAL) Comprehensive metabolic panel (08/07/2024 6:25 AM EDT) [facility] Sodium 139 133 - 145 mmol/L LAB CHEMISTRY METHOD 08/07/2024 12:05 PM [facility] Potassium 3.6 3.5 - 5.5 mmol/L LAB CHEMISTRY METHOD 08/07/2024 12:05 PM [facility] Chloride 103 96 - 110 mmol/L LAB CHEMISTRY METHOD 08/07/2024 12:05 PM [facility] CO2 29 21 - 32 mmol/L LAB CHEMISTRY METHOD 08/07/2024 12:05 PM [facility] Anion Gap 7 3 - 11 LAB CHEMISTRY METHOD 08/07/2024 12:05 PM [facility] Glucose 47(L) 70 - 100 mg/dL LAB CHEMISTRY METHOD 08/07/2024 12:05 PM [facility] BUN 7 5 - 25 mg/dL LAB CHEMISTRY METHOD 08/07/2024 12:05 PM [facility] Creatinine 0.43(L) 0.70 - 1.30 mg/dL LAB CHEMISTRY METHOD 08/07/2024 12:05 PM [facility] eGFR 126 >=60 mL/min/1. 73m2 LAB CHEMISTRY METHOD 08/07/2024 12:05 PM [facility] Comment:Calculation based on the Chronic Kidney Disease Epidemiology Collaboration (CKD-EPI) equation refit without adjustment for race. BUN/Creatinine Ratio 16.3 LAB CHEMISTRY METHOD 08/07/2024 12:05 PM [facility] Calcium 8.3(L) 8.5 - 10.5 mg/dL LAB CHEMISTRY METHOD 08/07/2024 12:05 PM [facility] AST (SGOT) 54(H) 10 - 42 unit/L LAB CHEMISTRY METHOD 08/07/2024 12:05 [facility] ALT (SGPT) 29 10 - 60 unit/L LAB CHEMISTRY METHOD 08/07/2024 12:05 PM [facility] Alkaline Phosphatase 297(H) 42 - 121 unit/L LAB CHEMISTRY METHOD 08/07/2024 12:05 PM [facility] Total Protein 5.7(L) 6.0 - 8.0 g/dL LAB CHEMISTRY METHOD 08/07/2024 12:05 PM [facility] Albumin 2.0(L) 3.2 - 5.0 g/dL LAB CHEMISTRY METHOD 08/07/2024 12:05 PM [facility] Total Bilirubin 0.7 0.0 - 1.4 mg/dL LAB CHEMISTRY METHOD 08/07/2024 12:05 PM [facility] Blood Venous blood specimen / Unknown Venipuncture / Unknown 08/07/2024 6:25 AM EDT 08/07/2024 10:30 AM EDT us May Stacy MD LAB BLOOD ORDERABLES Fin al Result [facility] [address] [place] [address], [place] [phone] * (ABNORMAL) Complete blood count (08/07/2024 6:25 AM EDT) [facility] WBC 8.8 4.8 - 10.8 K/mcL LAB HEMETOLOGY METHOD 08/07/2024 2:21 PM EDT [facility] RBC 2.60(L) 4.50 - 5.50 M/mcL LAB HEMETOLOGY METHOD [facility] Hemoglobin 9.5(L) 13.5 - 17.5 g/dL LAB HEMETOLOGY METHOD 08/07/2024 2:21 PM EDT [facility] Hematocrit 30.7(L) 42.0 - 54.0 % LAB HEMETOLOGY METHOD 08/07/2024 2:21 PM EDT [facility] MCV 118.5(H) 79.0 - 98.0 FL LAB HEMETOLOGY METHOD 08/07/2024 2:21 PM [facility] MCH 36.7(H) 27.0 - 32.0 pcg LAB HEMETOLOGY METHOD 08/07/2024 2:21 PM EDT [facility] MCHC 30.9(L) 32.0 - 37.0 g/dL LAB HEMETOLOGY METHOD 08/07/2024 2:21 PM EDT [facility] RDW 14.5 11.0 - 15.0 % LAB HEMETOLOGY METHOD 08/07/2024 2:21 PM [facility] Platelets 288 130 - 400 K/mcL LAB HEMETOLOGY METHOD 08/07/2024 2:21 PM EDT [facility] MPV 10.4 7.0 - 11.0 FL LAB HEMETOLOGY METHOD 08/07/2024 2:21 PM EDT [facility] NRBC 0.0 <1.0 % LAB HEMETOLOGY METHOD 08/07/2024 2:21 PM EDT [facility] NRBC Absolute 0.00 <0.10 K/mcL LAB HEMETOLOGY METHOD 08/07/2024 2:21 PM EDT [facility] Blood Venous blood specimen / Unknown Venipuncture / Unknown 08/07/2024 6:25 AM EDT 08/07/2024 10:31 AM EDT us May Stacy MD LAB BLOOD ORDERABLES Fin al Result [facility] [address] [place] [address], documented in this encounter Visit Diagnoses Diagnosis Essential (primary) hypertension Unspecified essential hypertension Unspecified atrial fibrillation (CMS/HCC V24, CMS/HCC V28) Chronic obstructive pulmonary disease, unspecified (CMS/HCC V24, CMS/HCC V28) Nutritional anemia, unspecified Alcohol dependence with withdrawal, unspecified (CMS/HCC V24, CMS/HCC V28) documented in this encounter Care Teams Escrow Officer Relationship Specialty Start Date End Date Evelyn Ibrahim MD [address] [place] [id number] PCP - General Internal Medicine 04/11/21 documented as of this encounter
== END 2024-11-30 15:42 | disposition home or self-care (01) ==
LOC: HO.HMCH 10:30
PROVIDERS: PCP Internal Medicine
DX: I48.3 Typical atrial flutter (principal); F19.10 Other psychoactive substance abuse, uncomplicated; J44.9 Chronic obstructive pulmonary disease, unspecified; Z01.818 Encounter for other preprocedural examination; H26.9 Unspecified cataract; I10 Essential (primary) hypertension; D69.6 Thrombocytopenia, unspecified; E29.1 Testicular hypofunction; E87.6 Hypokalemia; M54.50 Low back pain, unspecified; F17.210 Nicotine dependence, cigarettes, uncomplicated; Z98.890 Other specified postprocedural states

== ENCOUNTER → 2024-11-30 10:29 | Outpatient (BNVA) | payer MEDICARE, MEDICAID, SELFPAY | PROVIDERS: PCP Internal Medicine | DX: Z01.818 Encounter for other preprocedural examination (principal); H26.9 Unspecified cataract; J44.9 Chronic obstructive pulmonary disease, unspecified; F19.10 Other psychoactive substance abuse, uncomplicated; I10 Essential (primary) hypertension; I48.3 Typical atrial flutter; D69.6 Thrombocytopenia, unspecified; E29.1 Testicular hypofunction; M54.50 Low back pain, unspecified; F17.210 Nicotine dependence, cigarettes, uncomplicated; Z98.890 Other specified postprocedural states; Z99.81 Dependence on supplemental oxygen | CPT/HCPCS: 99212 ==

== ENCOUNTER 2024-12-08 12:49 | Outpatient (AMB) | payer MEDICARE, MEDICAID, SELFPAY ==
--- NOTE | 2024-12-08 12:59 | A.OFFPC_ITS ---
Vital Signs 12/08/24 13:00 Height 6 ft Weight 157 lb 4 oz BMI 21.3 BP 108/64 Blood Pressure Location Lt brachial Position Sitting Pulse 67 Pulse Source Pulse Oximeter Temp 97.1 F Temp Source Temporal Artery Scan Pulse Oximetry (%) 93 Oxygen Delivery Method Nasal Cannula Intake Visit Reasons: follow up Intake Note: Patient is here to follow up on COPD, HTN . System Development Manager Required: No Superintendent Plant Protection: Not Required per policy Accompanied by: Self / Same As Patient Allergies morphine Allergy (Severe, Verified 12/08/24 13:00) Anaphylaxis acetaminophen (From Tylenol) Allergy (Intermediate, Verified 12/08/24 13:00) Gastrointestinal Upset Medication List - Last Reconciled 12/08/24 by Katie Collier MD albuterol sulfate 90 mcg/actuation (Ventolin HFA) 90 mcg inhalation Q4-6H PRN atorvastatin 20 mg PO BEDTIME bisacodyl (Dulcolax (bisacodyl)) 10 mg (2 x 5 mg) PO BEDTIME buprenorphine-naloxone 8-2 mg 1 tab sublingual TID clonazepam (Klonopin) 1 mg PO BID PRN digoxin 125 mcg PO DAILY diltiazem HCl ER (Tiadylt ER) 300 mg PO DAILY insvhrwnbfp-tbkkyxsjz-aeqbabho 200-62.5-25 mcg (Trelegy Ellipta) 1 ea inhalation DAILY folic acid 1 mg PO DAILY magnesium oxide 400 mg PO BIDPC 30 days metoprolol tartrate 100 mg PO BID 90 days pantoprazole 40 mg PO DAILY@0630 [portable oxygen via [place] As directed] potassium chloride ER 20 mEq PO BID prucalopride (Motegrity) 2 mg PO DAILY Tobacco use date assessed: 12/08/24 Dental Screening Dental Screen Date: 11/30/24 HPI follow up HPI Details on oxygen 1L [place]. cataract next week 12/11/2024 L eye then 01/03/2025 Eye and lasik [facility] Medical History (Updated 12/08/24 @ 13:27 by Katie Collier MD) Cigarette smoker Cough CAP (community acquired pneumonia) Asthma Laceration of left leg Prostate cancer screening Urinary hesitancy Urinary frequency Encounter for screening for malignant neoplasm of colon Acute cholecystitis Otitis media Bilateral hearing loss due to cerumen impaction Obesity Hyperglycemia Afib Alcohol use disorder Hypomagnesemia Alcohol use Substance abuse in family Back pain Constipation Bipolar 1 disorder SOB (shortness of breath) Myocardial infarction Tubular adenoma 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 Mother Chronic a-fib Sister Chronic a-fib Breast cancer Ovarian cancer Social History (Updated 12/08/24 @ 13:07 by IVÁN Arias) Household Members: Significant Other Housing: Apartment Are you a primary career technical education instructor to a significant other at home: No Do you presently have visiting nurse or other home services: No Alcohol intake: current Alcohol intake frequency: does not drink Alcohol type: hard liquor Comment: REFUSING BED ALARM Patient Tobacco Use Status: Current everyday Tobacco user Tobacco use type: Cigarette Cigarette Packs Per Day: 0.5 Cigarettes Per Day: 10 e-Cigarette/Vaping Use: Never Used Second Hand Smoke Exposure: Yes Advance Directives Date on File: 07/28/22 service: No Current occupational status: disabled Cognitive needs: No Hearing needs: No Vision needs: Yes Questionnaire PHQ-9 Over the last 2 weeks, how often have you been bothered by any of the following problems? 1. Little interest or pleasure in doing things: not at all 2. Feeling down, depressed, or hopeless: not at all 3. Trouble falling or staying asleep, or sleeping too much: not at all 4. Feeling tired or having little energy: several days 5. Poor appetite or overeating: not at all 6. Feeling bad about yourself - or that you are a failure or have let yourself or your family down: not at all 7. Trouble concentrating on things, such as reading the newspaper or watching television: not at all 8. Moving or speaking so slowly that other people could have noticed. Or the opposite - being so fidgety or restless that you have been moving around a lot more than usual: not at all 9. Thoughts that you would be better off or of hurting yourself in some way: not at all Total score: 1 Depression Screening Interpretation: Positive Depression Screening Done: Yes Source: Developed by Drs. Uzair Napoles, Saul Hogan and colleagues, with an educational mabel from [employer]. Thrive Questionnaire Date Thrive assessed: 07/27/24 I am a: Patient What is your living situation today?: I have a steady place to live Within the past 12 months, did the food you bought not last and you didn't have the money to get more?: Often true Within the past 12 months, did you worry whether your food would run out before you got money to buy more?: Never true Do you have trouble paying for medicines?: No Do you have trouble getting transportation to medical appointments?: No Do you have trouble paying your heating and electricity bill?: No Do you have trouble taking care of your child, family member or friend?: No Do you have trouble with day-to-day activities such as bathing, preparing meals, shopping, managing finances, etc.?: No Are you currently unemployed and looking for a job?: No Are you interested in more education?: No Please select the resources that you would like help with: Utilities Currently or been in a relationship where the following occur: I choose not to answer THRIVE Score: 1 AUDIT C Alcohol Use Questionnaire (AUDIT-C) 1. How often do you have a drink containing alcohol?: Never Total Score: 0 AGUSTÍN-7 AMB Questionnaire AGUSTÍN-7 Date AGUSTÍN - 7 assessed: 04/04/24 Feeling nervous, anxious, or on edge: 1 = Several days Not being able to stop or control worryin = Several days Worrying too much about different things: 1 = Several days Trouble relaxin = Not at all Being so restless that it is hard to sit still: 0 = Not at all Becoming easily annoyed or irritable: 0 = Not at all Feeling afraid as if something awful might happen: 0 = Not at all Total AGUTSÍN-7 score (0-4 normal; 5-9 mild; 10-14 moderate; 15-21 severe): 3 Source: Developed by Coretta Novak Kurt Kroenke and colleagues, with an educational mabel from [employer]. Physical exam (Primary Care) Vital Signs: Last Vital Signs Temp 97.1 F 12/08/24 13:00 Pulse 67 12/08/24 13:00 BP 108/64 12/08/24 13:00 Pulse Ox 93 12/08/24 13:00 Oxygen Delivery Method Nasal Cannula 12/08/24 13:00 BMI result Body Mass Index 21.3 Tobacco/Smoking Status: Tobacco use Status Tobacco use date assessed 12/08/24 12/08/24 13:03 Patient Tobacco Use Status Current everyday Tobacco 12/08/24 13:07 Tobacco use type Cigarette 12/08/24 13:07 e-Cigarette/Vaping Use Never Used 12/08/24 13:07 PHQ-9: PHQ-9 Score PHQ-9: Total score 1 12/08/24 13:11 Depression Screening Interpretation: Positive Thrive Assessment: Date of Thrive Assessment Date Thrive assessed 07/27/24 12/08/24 13:03 Currently or been in a relationship where the following occur: I choose not to answer Const General: alert; No acute distress Eyes Conjunctivae: conjunctivae normal Resp Auscultation: clear to auscultation bilaterally Cardio Rate: regular rate Rhythm: regular rhythm GI Inspection: Yes normal to inspection Extrem General: Yes normal to inspection and No edema Coding Level of Care Code Est Pt Level 4 (66183) Complex EM visit Add On G2211 Diagnoses Substance abuse F19.10 Hypertension, unspecified type I10 Hypertension type: unspecified Afib I48.91 Hyperlipidemia E78.5 Chronic obstructive pulmonary disease, unspecified COPD type J44.9 COPD type: unspecified COPD Tobacco abuse Z72.0 Tinea pedis B35.3 Assessment & Plan Assessment & Plan (1) Substance abuse: Code(s): F19.10 - Other psychoactive substance abuse, uncomplicated Category: Medical Plan: Strongly advised patient to stop! Patient is on Suboxone (2) Hypertension: Code(s): I10 - Essential (primary) hypertension Category: Medical Qualifiers: Hypertension type: unspecified Qualified Code(s): I10 - Essential (primary) hypertension Plan: Continue with blood pressure medication. Decrease salt intake and exercise patient is on diltiazem 300 mg once a day metoprolol 100 mg twice a day (3) Afib: Code(s): I48.91 - Unspecified atrial fibrillation Category: Medical Plan: Discussed with the patient regarding the need for anticoagulation. This was stopped due to thrombocytopenia (4) Hyperlipidemia: Code(s): E78.5 - Hyperlipidemia, unspecified Category: Medical Plan: Avoid fried foods, chicken skin, eggs, butter margarine, pastries and meat. Be it pork or beef they have a lot of cholesterol LDL goal of less than 70 and triglyceride of less than 150. April last blood work (5) COPD (chronic obstructive pulmonary disease): Code(s): J44.9 - Chronic obstructive pulmonary disease, unspecified Category: Medical Qualifiers: COPD type: unspecified COPD Qualified Code(s): J44.9 - Chronic obstructive pulmonary disease, unspecified Plan: Continue with Trelegy and albuterol inhaler (6) Tobacco abuse: Code(s): Z72.0 - Tobacco use Category: Medical Plan: Patient is strongly advised to stop smoking (7) Tinea pedis: Code(s): B35.3 - Tinea pedis Category: Medical Plan History of Present Illness The patient is a 54-year-old male presenting for follow-up care. He has a history of hypercholesterolemia, managed with lifestyle modifications and medications, aiming for an LDL goal of less than 70 mg/dL and triglycerides of less than 150 mg/dL. The patient has a history of tubular adenoma of the colon, with a repeat colonoscopy scheduled for 2025. He also has hypertension, managed with diltiazem and metoprolol. Asthma is managed with Trelegy and albuterol inhaler, and smoking cessation is advised. The patient has a history of hypogonadism and polysubstance abuse. Cervical spondylosis and chronic neck and back pain are attributed to degenerative changes and previous surgeries, with weight management advised. Anxiety disorder and atrial fibrillation are present, with previous thrombocytopenia leading to anticoagulation discontinuation. Platelet counts have improved, and cardiology is involved in management. Mild anemia is noted, with further tests ordered to assess iron, B12, and folic acid levels. The patient is awaiting hernia surgery, contingent upon stable blood counts, and cataract surgery is scheduled for January 03. Health Maintenance - Colonoscopy scheduled for 2025 due to history of tubular adenoma - Smoking cessation advised to improve respiratory health - Blood tests ordered to assess anemia and nutritional deficiencies - Cataract surgery scheduled for January 03 Social History - Reports engaging in regular physical activity, including gym workouts - History of polysubstance abuse - Reports smoking, advised to quit Review of Systems - Cardiovascular: Reports atrial fibrillation, denies chest pain - Respiratory: Reports asthma, denies dyspnea at rest - Musculoskeletal: Reports chronic neck and back pain, denies acute injury - Hematologic: Reports history of anemia, denies bleeding - Neurological: Reports anxiety disorder, denies seizures - Ophthalmologic: Reports cataracts, denies vision loss Physical Exam Results - Labs: Hemoglobin 11.5 g/dL, Platelet count 162 x 10^9/L, normal electrolytes and renal function - Imaging: CAT scan in June 2024 showed arthritic changes in the spine Plan Patient was informed and verbally consented to the use of an ambient scribe for clinic note documentation during this visit. 1. Hypercholesterolemia The patient is managing hypercholesterolemia with lifestyle modifications and medications, aiming for an LDL goal of less than 70 mg/dL and triglycerides of less than 150 mg/dL. 2. Tubular Adenoma Of The Colon The patient has a history of tubular adenoma of the colon, with a repeat colonoscopy scheduled for 2025. 3. Hypertension Hypertension is managed with diltiazem 300 mg once daily and metoprolol 100 mg twice daily. 4. Asthma Asthma is managed with Trelegy and albuterol inhaler, and smoking cessation is advised to improve respiratory health. 5. Hypogonadism The patient has a history of hypogonadism, which is being monitored. 6. Polysubstance Abuse The patient has a history of polysubstance abuse, which is being monitored. 7. Cervical Spondylosis Cervical spondylosis and chronic neck and back pain are attributed to degenerative changes and previous surgeries, with weight management advised to alleviate symptoms. 8. Anxiety Disorder The patient has an anxiety disorder, which is being monitored. 9. Atrial Fibrillation Atrial fibrillation is being managed with cardiology involvement, and previous thrombocytopenia led to the discontinuation of anticoagulation therapy. 10. Anemia Mild anemia is noted, with further tests ordered to assess iron, B12, and folic acid levels. 11. Hernia The patient is awaiting hernia surgery, contingent upon stable blood counts. 12. Cataracts Cataract surgery is scheduled for January 03. Discussion Notes During the visit, we discussed the management of hypercholesterolemia with a focus on achieving specific LDL and triglyceride goals. We reviewed the patient's history of tubular adenoma and the need for a repeat colonoscopy in 2025. The patient's hypertension management with diltiazem and metoprolol was confirmed, and the importance of smoking cessation for asthma control was emphasized. We addressed the patient's anxiety disorder and atrial fibrillation, noting the previous discontinuation of anticoagulation due to thrombocytopenia and the current involvement of cardiology for management. The patient's anemia was discussed, with plans for further blood tests to assess nutritional deficiencies. We also discussed the upcoming hernia and cataract surgeries, ensuring that all necessary preoperative evaluations are completed. Patient Instructions - Continue current medications for hypertension and asthma as prescribed. - Aim for LDL cholesterol less than 70 mg/dL and triglycerides less than 150 mg/dL. - Schedule and attend the repeat colonoscopy in 2025. - Follow up with cardiology for atrial fibrillation management. - Complete blood tests for anemia and nutritional deficiencies as ordered. - Attend scheduled cataract surgery on January 03. - Consider smoking cessation to improve respiratory health. Orders: Orders Thyroid Stimulating Hormone Today E78.5 - Hyperlipidemia, unspecified IRON PROFILE Today E78.5 - Hyperlipidemia, unspecified Vitamin B12 and Folate Today E78.5 - Hyperlipidemia, unspecified UA CC w/rflx Micro + Cult Today E78.5 - Hyperlipidemia, unspecified, R30.0 - Dysuria Comprehensive Met. Panel Today E78.5 - Hyperlipidemia, unspecified Complete Blood Count Auto Diff Today E78.5 - Hyperlipidemia, unspecified Prostate Specific Antigen Scr Today E78.5 - Hyperlipidemia, unspecified Lipid Panel Today E78.00 - Pure hypercholesterolemia, unspecified, E78.5 - Hyperlipidemia, unspecified Ferritin Today E78.5 - Hyperlipidemia, unspecified Free T4 (Free Thyroxine) Today E78.5 - Hyperlipidemia, unspecified Reticulocyte Count Today E78.5 - Hyperlipidemia, unspecified Medications: New clotrimazole 1% 1 appl topical BID 45 grams 1RF 4 weeks E78.5 - Hyperlipidemia, unspecified
[2024-12-08 13:00] VITALS: BP 108/64; PULSE 67; TEMP 36.2; O2SAT 93; BMI 21.3
== END 2024-12-08 13:31 | disposition home or self-care (01) ==
LOC: HO.HMCH 12:51
PROVIDERS: PCP Internal Medicine; Visit Provider Internal Medicine
DX: F19.10 Other psychoactive substance abuse, uncomplicated (principal); I10 Essential (primary) hypertension; I48.91 Unspecified atrial fibrillation; E78.5 Hyperlipidemia, unspecified; J44.9 Chronic obstructive pulmonary disease, unspecified; Z72.0 Tobacco use; B35.3 Tinea pedis

== ENCOUNTER → 2024-12-08 12:49 | Outpatient (BNVA) | payer MEDICARE, MEDICAID, SELFPAY | PROVIDERS: PCP Internal Medicine; Visit Provider Internal Medicine | DX: I10 Essential (primary) hypertension (principal); J44.9 Chronic obstructive pulmonary disease, unspecified; I48.91 Unspecified atrial fibrillation; B35.3 Tinea pedis; E29.1 Testicular hypofunction; M54.2 Cervicalgia; F41.9 Anxiety disorder, unspecified; M47.812 Spondylosis without myelopathy or radiculopathy, cervical region; D64.9 Anemia, unspecified; K46.9 Unspecified abdominal hernia without obstruction or gangrene; F17.210 Nicotine dependence, cigarettes, uncomplicated; Z99.81 Dependence on supplemental oxygen; Z86.0101 Personal history of adenomatous and serrated colon polyps | CPT/HCPCS: 96127; 99212 ==

== ENCOUNTER 2024-12-16 11:01 | Outpatient (REF) | payer MEDICARE, MEDICAID, SELFPAY ==
--- OUTSIDE RECORDS SUMMARY | 2024-12-16 11:05 | XMS_ITS | Clinical Summary ---
Author Organization [facility] Address [address] [place] [address] Phone Care Team Providers Care Information Technology Technician Name Role Phone Evelyn Ibrahim MD Primary Care Provider [phone] Allergies Active Allergy Reactions Criticality Noted Date [...] THE LUNGS DAILY 1 each 5 06/19/2024 Active Active Problems Problem Noted Date Diagnosed Date High cholesterol 12/31/2017 Chronic back pain 12/09/2017 Obstructive sleep apnea 06/16/2017 Anxiety 03/16/2017 Spinal stenosis of lumbar region 12/15/2016 Hyperlipidemia 03/19/2014 Pre-diabetes 03/19/2014 Tobacco use disorder 03/08/2014 COPD (chronic obstructive pu lmonary disease) ([facility] V24, [facility] V28) 03/09/2013 Depression 03/09/2013 GERD (gastroesophageal reflux disease) 4 HTN (hypertension) 03/09/2013 Insomnia 03/09/2013 Encounters Date Type Department Care Team Description 12/12/2024 Telephone Lung Screening Program - [address] [id number] Shara Farah [place] 12/02/2024 9:25 AM EDT - 12/02/2024 11:59 PM EDT Hospital Encounter [facility] Scan [address] [place] [id number] Encounter for screening for malignant neoplasm of respiratory organs; Nicotine dependence, cigarettes, uncomplicated Discharge Disposition: Home or Self Care 11/08/2024 Telephone Lung Screening Program - [place] [address] [id number] Amalia Bernal MA from Last 3 Months [...] COPD (chronic obstructive pu lmonary disease) ([facility] V24, [facility] V28) 03/09/2013 DX:COPD (chronic o bstructive pulmonary disease) ([facility]) Depression 03/09/2013 DX:Depression GERD (gastroesophageal [...] of 2 - PCV) 03/08/2015 03/08/2014, 12/30/2012 RSV Immunization Adult Patients (1 - Risk 50-74 years 1-dose series) 2019 Zoster Vaccines (1 of 2) 2019 Colorectal [...] Procedure Name Priority Date/Time Associated Diagnosis Comments CT LUNG SCREENING Routine 12/02/2024 9:3 5 AM EDT Encounter for screening for malignant neoplasm of respiratory organs Nicotine dependence, cigarettes, uncomplicated COMPREHENSIVE METABOLIC PANEL Routine 08/07/2024 6:25 AM EDT Essential (primary) hypertension Unspecified atrial fibrillation (CMS/HCC V24, CMS/HCC V28) Chronic obstructive pulmonary disease, unspecified (CMS/HCC V24, CMS/HCC V28) Nutritional anemia, unspecified Alcohol dependence with withdrawal, unspecified (CMS/HCC V24, CMS/HCC V28) LIPID PANEL Routine 08/03/2019 from Last 3 Months or Most Recently Relevant to Health Maintenance Results * CT Lung Screening (12/02/2024 9:35 AM EDT) Anatomical Region Laterality Modality Chest Computed Tomogra phy 12/12/2024 10:1 5 AM EDT Impressions 12/12/2024 11:03 AM EDT There is an irregular 0.8 cm nodule in the left apex. Probably no significant interval change in a peripheral nodule in the right upper lobe laterally. There is underlying emphysema. LUNG RADS: Lung-RADS 4A: SUSPICIOUS S Modifier (Significant or Potentially Significant Findings): None present No suspicious nonpulmonary findings. RECOMMENDATIONS: [address]; PET/CT may be considered if there is a greater than or equal to 8 mm solid nodule or solid component -------- FINAL REPORT -------- Dictated By: Ab Garcia Dictated Date: 12/12/2024 10:15 ET Assigned Physician: Ab Garcia Reviewed and Electronically Signed By: Ab Garcia Signed Date: 12/12/2024 11:03 ET Workstation ID: [id number] Transcribed By: Self Edit Transcribed Date: 12/12/2024 10:15 ET Narrative 12/12/2024 11:03 AM EDT EXAMINATION: CT CHEST WITHOUT CONTRAST LUNG CANCER SCREENING, LOW DOSE CLINICAL INFORMATION: Lung cancer screening. Current smoker. COMPARISON: Portions of previous 04/19/23 TECHNIQUE: Multidetector CT. Examination of the chest. Examination of the chest without IV contrast. Reformatting in the coronal and sagittal planes. Device: [employer] VCT DLP: 124 mGy-cm CTDI: 3.22 Dose optimization was performed including the use of low-dose iterative reconstruction technique with automatic exposure control based on patient size. Type of contrast: None Volume of IV contrast: None Volume of contrast discarded: 0 mL FINDINGS: Digital school childcare attendant demonstrates large lung volumes. LUNG: There are some secretions in the lower trachea, bronchus intermedius and left mainstem bronchus. LUNG NODULES: There is an irregular solid nodule in the central left apex 12/02/24-0.9 x 0.7 cm () 04/19/23-not measurable There is a solid peripheral nodule in the lateral right upper lobe 12/02/24-0.8 x 0.6 cm () 11/26/23-1.0 x 0.4 cm () 04/19/23-0.9 x 0.4 cm () OTHER PULMONARY: There is underlying centrilobular emphysema. There is no honeycomb formation. MEDIASTINUM: There are no enlarged mediastinal or hilar lymph nodes. No suspicious abnormalities of the esophagus. CARDIAC: The heart is not enlarged. No pericardial fluid or thickening There are mild coronary calcifications. VASCULAR: The main pulmonary artery is dilated. PLEURA: There is no pleural fluid or pneumothorax AXILLA/CHEST WALL: There are nonspecific mildly prominent bilateral axillary lymph nodes. There is no suspicious chest wall mass. VISUALIZED UPPER ABDOMEN: Equivocal irregularity of the liver contour. MUSCULOSKELETAL: No suspicious focal bony lesion demonstrated. us Elham Lance MD IM CT PROCEDURES Final Result * (ABNORMAL) Comprehensive metabolic panel (08/07/2024 6:25 AM EDT) Sodium 139 133 - 145 mmol/L LAB CHEMISTRY METHOD 08/07/2024 12:05 PM [facility] Potassium 3.6 3.5 - 5.5 mmol/L LAB CHEMISTRY METHOD 08/07/2024 12:05 PM [facility] Chloride 103 96 - 110 mmol/L LAB CHEMISTRY METHOD 08/07/2024 12:05 PM [facility] CO2 29 21 - 32 mmol/L LAB CHEMISTRY METHOD 08/07/2024 12:05 PM [facility] Anion Gap 7 3 - 11 LAB CHEMISTRY METHOD 08/07/2024 12:05 PM [facility] Glucose 47(L) 70 - 100 mg/dL LAB CHEMISTRY METHOD 08/07/2024 12:05 PM [facility] BUN 7 5 - 25 mg/dL LAB CHEMISTRY METHOD 08/07/2024 12:05 PM [facility] Creatinine 0.43(L) 0.70 - 1.30 mg/dL LAB CHEMISTRY METHOD 08/07/2024 12:05 PM [facility] eGFR 126 >=60 mL/min/1. 73m2 LAB CHEMISTRY METHOD 08/07/2024 12:05 PM [facility] Comment:Calculation based on the Chronic Kidney Disease Epidemiology Collaboration (CKD-EPI) equation refit without adjustment for race. BUN/Creatinine Ratio 16.3 LAB CHEMISTRY METHOD 08/07/2024 12:05 PM [facility] Calcium 8.3(L) 8.5 - 10.5 mg/dL LAB CHEMISTRY METHOD 08/07/2024 12:05 PM [facility] AST (SGOT) 54(H) 10 - 42 unit/L LAB CHEMISTRY METHOD 08/07/2024 12:05 PM [facility] ALT (SGPT) 29 10 - 60 unit/L LAB CHEMISTRY METHOD 08/07/2024 12:05 PM EDT [facility] Alkaline Phosphatase 297(H) 42 - 121 unit/L LAB CHEMISTRY METHOD 08/07/2024 12:05 PM EDT [facility] Total Protein 5.7(L) 6.0 - 8.0 g/dL LAB CHEMISTRY METHOD 08/07/2024 12:05 PM EDT [facility] Albumin 2.0(L) 3.2 - 5.0 g/dL LAB CHEMISTRY METHOD 08/07/2024 12:05 PM EDT [facility] Total Bilirubin 0.7 0.0 - 1.4 mg/dL LAB CHEMISTRY METHOD 08/07/2024 12:05 PM EDT [facility] Blood Venous blood specimen / Unknown Venipuncture / Unknown 08/07/2024 6:25 AM EDT 08/07/2024 10:30 AM EDT May Stacy MD LAB BLOOD ORDERABLES Fin al Result [facility] [address] [place] [address], * Lipid panel (08/03/2019) LDL/HDL Ratio 4 [...] MEDICAID [place] [employer] Care Teams Information Technology Technician Relationship Specialty Start Date End Date Evelyn Ibrahim MD [address] [address] PCP - General Internal Medicine 04/11/21
--- OUTSIDE RECORDS SUMMARY | 2024-12-16 11:05 | XMS_ITS | Encounter Summary ---
Author Organization [facility] Address [address] [place] [address] Care Team Providers Care Exhaust Tender Name Role Phone Evelyn Ibrahim MD Primary Care Provider [phone] Encounter Details Date Type Department Care Team (Late st Contact Info) Description 08/02/2024 Lab Requisition [facility] - Main Lab 299 [facility] [place] [phone] May Stacy MD [address] [address] Essential (primary) hypertension Social History Tobacco Use [...] mmol/L LAB CHEMISTRY METHOD 08/02/2024 9:[address] [facility] Potassium 4.0 3.5 - 5.5 mmol/L LAB CHEMISTRY METHOD 08/02/2024 9:[address] [facility] Chloride 103 96 - 110 mmol/L LAB CHEMISTRY METHOD 08/02/2024 9:[address] [facility] CO2 29 21 - 32 mmol/L LAB CHEMISTRY METHOD 08/02/2024 9:[address] [facility] Anion Gap 6 3 - 11 LAB CHEMISTRY METHOD 08/02/2024 9:[address] [facility] Glucose 73 70 - 100 mg/dL LAB CHEMISTRY METHOD 08/02/2024 9:[address] [facility] BUN 5 5 - 25 mg/dL LAB CHEMISTRY METHOD 08/02/2024 9:[address] [facility] Creatinine 0.38(L) 0.70 - 1.30 mg/dL LAB CHEMISTRY METHOD 08/02/2024 9:[address] [facility] eGFR 131 >=60 mL/min/1. 73m2 LAB CHEMISTRY METHOD 08/02/2024 9:[address] [facility] Comment:Calculation based on the Chronic Kidney Disease Epidemiology Collaboration (CKD-EPI) equation refit without adjustment for race. BUN/Creatinine Ratio 13.2 LAB CHEMISTRY METHOD 08/02/2024 9:[address] [facility] Calcium 7.9(L) 8.5 - 10.5 mg/dL LAB CHEMISTRY METHOD 08/02/2024 9:[address] [facility] AST (SGOT) 65(H) 10 - 42 unit/L LAB CHEMISTRY METHOD 08/02/2024 9:[address] [facility] ALT (SGPT) 35 10 - 60 unit/L LAB CHEMISTRY METHOD 08/02/2024 9:[address] [facility] Alkaline Phosphatase 412(H) 42 - 121 unit/L LAB CHEMISTRY METHOD 08/02/2024 9:04 AM T [facility] Total Protein 5.3(L) 6.0 - 8.0 g/dL LAB CHEMISTRY METHOD 08/02/2024 9:[address] [facility] Albumin 1.8(L) 3.2 - 5.0 g/dL LAB CHEMISTRY METHOD 08/02/2024 9:[address] [facility] Total Bilirubin 1.0 0.0 - 1.4 mg/dL LAB CHEMISTRY METHOD 08/02/2024 9:[address] [facility] Blood Venous blood specimen / Unknown Venipuncture / Unknown 08/02/2024 4:51 AM EDT 08/02/2024 8:03 AM EDT us May Stacy MD LAB BLOOD ORDERABLES Fin al Result [facility] [address] [place] [address], * (ABNORMAL) Complete blood count (08/02/2024 4:51 AM EDT) WBC 8.3 4.8 - 10.8 K/mcL LAB HEMETOLOGY METHOD 08/02/2024 9:[address] [facility] RBC 2.40(L) 4.50 - 5.50 M/mcL LAB HEMETOLOGY METHOD 08/02/2024 9:[address] [facility] Hemoglobin 9.1(L) 13.5 - 17.5 g/dL LAB HEMETOLOGY METHOD 08/02/2024 9:[address] [facility] Hematocrit 28.0(L) 42.0 - 54.0 % LAB HEMETOLOGY METHOD 08/02/2024 9:[address] [facility] MCV 114.8(H) 79.0 - 98.0 [...] % LAB HEMETOLOGY METHOD 08/02/2024 9:[address] [facility] NRBC Absolute 0.00 <0.10 K/mcL LAB HEMETOLOGY METHOD 08/02/2024 9:[address] [facility] Blood Venous blood specimen / Unknown Venipuncture / Unknown 08/02/2024 4:51 AM EDT 08/02/2024 8:03 AM EDT us May Stacy MD LAB BLOOD ORDERABLES Fin al Result [facility] [address] [place] [address], documented in this encounter Visit Diagnoses Diagnosis Essential (primary) hypertension Unspecified essential hypertension documented in this encounter Care Teams Exhaust Tender Relationship Specialty Start Date End Date Evelyn Ibrahim MD [address] [place] [id number] PCP - General Internal Medicine 04/11/21 documented as of this encounter
--- OUTSIDE RECORDS SUMMARY | 2024-12-16 11:05 | XMS_ITS | Encounter Summary ---
Author Organization [facility] Address [address] [place] [address] Care Team Providers Care Vendor Quality Supervisor Name Role Phone Evelyn Ibrahim MD Primary Care Provider [phone] Encounter Details Date Type Department Care Team (Late st Contact Info) Description 08/04/2024 Lab Requisition [facility] - Main Lab 299 [facility] [place] [address] May Stacy MD [address] [phone] Essential (primary) hypertension; Unspecified atrial fibrillation (CMS/HCC V24, CMS/HCC V28); Chronic obstructive pulmonary disease, unspecified (CMS/HCC V24, CMS/HCC V28); Nutritional anemia, unspecified; Alcohol dependence with withdrawal, unspecified (CMS/HCC V24, CMS/HCC V28) Social History Tobacco Use Types Packs/Day [...] LAB CHEMISTRY METHOD 08/07/2024 12:02 PM EDT [facility] Blood Venous blood specimen / Unknown Venipuncture / Unknown 08/07/2024 6:25 AM EDT 08/07/2024 10:30 AM EDT us May Stacy MD LAB BLOOD ORDERABLES Fin al Result [facility] [address] [place] [address], [place] [phone] * Digoxin level (08/07/2024 6:25 AM EDT) [facility] Digoxin Lvl 0.6 0.5 - 2.0 ng/mL LAB CHEMISTRY METHOD 08/07/2024 12:13 PM EDT [facility] Blood Venous blood specimen / Unknown Venipuncture / Unknown 08/07/2024 6:25 AM EDT 08/07/2024 10:30 AM EDT us May Stacy MD LAB BLOOD ORDERABLES Fin al Result [facility] [address] [place] [address], [place] [phone] * (ABNORMAL) Comprehensive metabolic panel (08/07/2024 6:25 AM EDT) [facility] Sodium 139 133 - 145 mmol/L LAB CHEMISTRY METHOD 08/07/2024 12:05 PM [facility] Potassium 3.6 3.5 - 5.5 mmol/L LAB CHEMISTRY METHOD 08/07/2024 12:05 PM [facility] Chloride 103 96 - 110 mmol/L LAB CHEMISTRY METHOD 08/07/2024 12:05 PM [facility] CO2 29 21 - 32 mmol/L LAB CHEMISTRY METHOD 08/07/2024 12:05 PM [facility] Anion Gap 7 3 - 11 LAB CHEMISTRY METHOD 08/07/2024 12:05 PM [facility] Glucose 47(L) 70 - 100 mg/dL LAB CHEMISTRY METHOD 08/07/2024 12:05 PM [facility] BUN 7 5 - 25 mg/dL LAB CHEMISTRY METHOD 08/07/2024 12:05 PM [facility] Creatinine 0.43(L) 0.70 - 1.30 mg/dL LAB CHEMISTRY METHOD 08/07/2024 12:05 PM [facility] eGFR 126 >=60 mL/min/1. 73m2 LAB CHEMISTRY METHOD 08/07/2024 12:05 PM [facility] Comment:Calculation based on the Chronic Kidney Disease Epidemiology Collaboration (CKD-EPI) equation refit without adjustment for race. BUN/Creatinine Ratio 16.3 LAB CHEMISTRY METHOD 08/07/2024 12:05 PM [facility] Calcium 8.3(L) 8.5 - 10.5 mg/dL LAB CHEMISTRY METHOD 08/07/2024 12:05 PM [facility] AST (SGOT) 54(H) 10 - 42 unit/L LAB CHEMISTRY METHOD 08/07/2024 12:05 PM [facility] ALT (SGPT) 29 10 - 60 unit/L LAB CHEMISTRY METHOD 08/07/2024 12:05 PM [facility] Alkaline Phosphatase 297(H) 42 - 121 unit/L LAB CHEMISTRY METHOD 08/07/2024 12:05 PM [facility] Total Protein 5.7(L) 6.0 - 8.0 g/dL LAB CHEMISTRY METHOD 08/07/2024 12:05 PM [facility] Albumin 2.0(L) 3.2 - 5.0 g/dL LAB CHEMISTRY METHOD 08/07/2024 12:05 PM [facility] Total Bilirubin 0.7 0.0 - 1.4 mg/dL LAB CHEMISTRY METHOD 08/07/2024 12:05 PM [facility] Blood Venous blood specimen / Unknown Venipuncture / Unknown 08/07/2024 6:25 AM EDT 08/07/2024 10:30 AM EDT us May Stacy MD LAB BLOOD ORDERABLES Fin al Result [facility] [address] [place] [address], * (ABNORMAL) Complete blood count (08/07/2024 6:25 AM EDT) [facility] Signature WBC 8.8 4.8 - 10.8 K/mcL LAB HEMETOLOGY METHOD 08/07/2024 2:21 PM EDT [facility] RBC 2.60(L) 4.50 - 5.50 M/mcL LAB HEMETOLOGY METHOD 08/07/2024 2:21 PM EDT [facility] Hemoglobin 9.5(L) 13.5 - 17.5 g/dL LAB HEMETOLOGY METHOD 08/07/2024 2:21 PM EDT [facility] Hematocrit 30.7(L) 42.0 - 54.0 % LAB HEMETOLOGY METHOD 08/07/2024 2:21 PM EDT [facility] MCV 118.5(H) 79.0 - 98.0 FL LAB HEMETOLOGY METHOD 08/07/2024 2:21 PM EDT [facility] MCH 36.7(H) 27.0 - 32.0 pcg LAB [facility]ETOLOGY [facility] M[facility]C 30.9(L) 32.0 - 37.0 g/dL LAB HEMETOLOGY METHOD 08/07/2024 2:21 PM EDT [facility] RDW 14.5 11.0 - 15.0 % LAB HEMETOLOGY METHOD 08/07/2024 2:21 PM EDT [facility] Platelets 288 130 - 400 K/mcL LAB HEMETOLOGY METHOD 08/07/2024 2:21 PM EDT [facility] MPV 10.4 7.0 - 11.0 FL LAB HEMETOLOGY METHOD 08/07/2024 2:21 PM EDT [facility] NRBC 0.0 <1.0 % LAB HEMETOLOGY METHOD 08/07/2024 2:21 PM EDT [facility] NRBC Absolute 0.00 <0.10 K/mcL LAB HEMETOLOGY METHOD 08/07/2024 2:[address] [facility] Blood Venous blood specimen / Unknown Venipuncture / Unknown 08/07/2024 6:25 AM EDT 08/07/2024 10:31 AM EDT us May Stacy MD LAB BLOOD ORDERABLES Fin al Result [facility] [address] [place] [address], documented in this encounter Visit Diagnoses Diagnosis Essential (primary) hypertension Unspecified essential hypertension Unspecified atrial fibrillation (CMS/HCC V24, CMS/HCC V28) Chronic obstructive pulmonary disease, unspecified (CMS/HCC V24, CMS/[facility] V28) Nutritional anemia, unspecified Alcohol dependence with withdrawal, unspecified (CMS/HCC V24, CMS/[facility] V28) documented in this encounter Care Teams Vendor Quality Supervisor Relationship Specialty Start Date End Date Evelyn Ibrahim MD [address] [place] [address] PCP - General Internal Medicine 04/11/21 documented as of this encounter
--- OUTSIDE RECORDS SUMMARY | 2024-12-16 11:05 | XMS_ITS | Encounter Summary ---
Author Organization [facility] Address [address] [place] [address] Care Team Providers Care Sensory Scientist Name Role Phone Evelyn Ibrahim MD Primary Care Provider [phone] Reason for Visit * Reason Onset Date Comments Results 12/12/2024 Annual Lung Scre ening- Suspicious Findings Encounter Details Date Type Department Care Team ([facility] st Contact Info) Description 12/12/2024 Telephone Lung Screening Program - [address] [place] [address] Shara Farah MA Social History Tobacco Use Types Packs/Day [...] as of this encounter Progress Notes * Shara Farah MA - 12/12/2024 11:32 AM EDT This patient had their annual Low Dose CT scan on 12/02/2024 with a Lung RADS Score of a 4A. We will be presenting this patient's case at our Multidisciplinary Thoracic Tumor Board Conference on 12/18/2024. The recommendation from this conference will be communicated to both you and the patient. Please let us know if you would be interested in attending this conference virtually. Screening patients are typically presented between 12-12:20pm. Please reach out to Naye Ramachandran [facility] to request the Teams information. documented in this encounter Plan of Treatment Not on file documented as of this encounter Visit Diagnoses Not on filedocumented in this encounter Care Teams Sensory Scientist Relationship Specialty Start Date End Date Evelyn Ibrahim MD [address] [address] PCP - General Internal Medicine 04/11/21 documented as of this encounter
--- OUTSIDE RECORDS SUMMARY | 2024-12-16 11:05 | XMS_ITS | Encounter Summary ---
Author Organization [facility] Address [address] [place] [address] Care Team Providers Care Conductor Yard Name Role Phone Evelyn Ibrahim MD Primary Care Provider Encounter Details Date Type Department Care Team (Late st Contact Info) Description 08/11/2024 Lab Requisition [facility] - Main Lab 299 [facility] [place] [address] May Stacy MD [address] [phone] Essential (primary) hypertension; Unspecified atrial fibrillation (CMS/HCC V24, CMS/HCC V28); Chronic obstructive pulmonary disease, unspecified (CMS/HCC V24, CMS/HCC V28); Nutritional anemia, unspecified; Alcohol dependence with withdrawal, unspecified ([facility] V24, CMS/[facility] V28) Social History Tobacco Use Types Packs/Day [...] Chronic obstructive pulmonary disease, unspecified (CMS/HCC V24, CMS/[facility] V28) Nutritional anemia, unspecified Alcohol dependence with withdrawal, unspecified (CMS/HCC V24, CMS/HCC V28) documented in this encounter Care Teams Conductor Yard Relationship Specialty Start Date End Date Evelyn Ibrahim MD [address] [address] PCP - General Internal Medicine 04/11/21 documented as of this encounter
[2024-12-16 13:41] LABS: MANUAL DIFF FLAG NO
[2024-12-16 13:44] LABS: Hematocrit 35.2 % (42.0-52.0); Hemoglobin 11.5 g/dl (14.0-18.0); Imm Gran Abs Auto 0.03 X10*3/uL (0.00-0.03); Imm Gran Pct Auto 0.3 % (0.0-0.4); Lymphocytes Absolute Auto 1.8 X10*3/uL (1.2-4.9); Mean Corpuscular HGB Conc 32.7 g/dl (31.0-36.0); Mean Corpuscular Hemoglobin 32.3 pg (27.0-33.0); Mean Corpuscular Volume 98.9 fL (80.0-98.0); NRBC Abs Auto 0.000 X10*3/uL (0.0-0.012); NRBC Pct Auto 0.0 /100WBC (0.0-0.2); Platelet Count 192 X10*3/uL (160-400); Red Blood Count 3.56 X10*6/uL (4.60-5.80); Reticulocytes Absolute 0.061 X10*6/uL (0.026-0.095); White Blood Count 10.0 X10*3/uL (4.8-10.8)
[2024-12-16 14:07] LABS: Alanine Aminotransferase 16 U/L (0-40); Albumin Level 3.9 g/dL (3.5-5.0); Alkaline Phosphatase 74 U/L (39-117); Anion Gap 13 (12-20); Aspartate Amino Transferase 18 U/L (5-37); Blood Urea Nitrogen 15 mg/dL (9-16); Calcium 9.4 mg/dL (8.4-10.2); Carbon Dioxide 29 mmol/L (22-29); Chloride 102 mmol/L (96-108); Cholesterol 123 mg/dL (<200); Estimated Glomerular Filt Rate > 60; HDL Cholesterol 48 mg/dL (>40); Iron 47 mcg/dL (45-160); Percent Iron Saturation 18 % (15-50); Potassium 4.6 mmol/L (3.3-5.1); Sodium 139 mmol/L (135-145); Total Iron Binding Capacity 264 mcg/dL (228-428); Total Protein 7.2 g/dL (6.5-8.0); Triglycerides 80 mg/dL (<150); Unsaturated Iron Binding 217 ug/dL
[2024-12-16 14:26] LABS: Ferritin 218 ng/mL (20-250); Free T4 (Free Thyroxine) 1.05 ng/dL (0.71-1.85); Thyroid Stimulating Hormone 1.58 uIU/mL (0.32-4.0)
[2024-12-16 14:34] LABS: Folate 14.4 ng/mL (> or = 4.0); Vitamin B12 241 pg/mL (200-900)
== END 2024-12-16 11:02 | disposition home or self-care (01) ==
LOC: HO.HMGCLDS 11:01
PROVIDERS: PCP Internal Medicine; Visit Provider Internal Medicine
DX: Z12.5 Encounter for screening for malignant neoplasm of prostate (principal); E78.00 Pure hypercholesterolemia, unspecified
CPT/HCPCS: 36415; 80053; 80061; 82607; 82728; 82746; 83540; 84153; 84439; 84443; 85025; 85045

== ENCOUNTER 2024-12-27 14:49 | Outpatient (AMB) | payer MEDICARE, MEDICAID, SELFPAY ==
--- OUTSIDE RECORDS SUMMARY | 2024-12-22 12:27 | XMS_ITS | Encounter Summary ---
Author Organization [facility] Address [address] [place] [address] Care Team Providers Care It Web Development Consultant Name Role Phone Evelyn Ibrahim MD Primary Care Provider Reason for Referral * Therapy (Emergency) - Closed Specialty Diagnoses / Procedures Referred By Dakota jay Referred To Contact Pulmonology Diagnoses Lung nodule Procedures Pulmonary function testing: Carbon Monoxide Diffusing Capacity, Spirometry with Bronchodilator, Plethysmography Marya Treadwell NP [address] [address] Phone: tel: fax: [facility] [address] [place] [address] Phone: tel: Referral ID Status Reason Start Date Expiration Date Visits Re quested Visits Authorized [id number] Closed 12/18/2024 12/18/2025 1 1 Reason for Visit * Therapy (Emergency) - Closed Specialty Diagnoses / Procedures Referred By Dakota jay Referred To Contact Pulmonology Diagnoses Lung nodule Procedures Pulmonary function testing: Carbon Monoxide Diffusing Capacity, Spirometry with Bronchodilator, Plethysmography Marya Treadwell NP [address] [address] Phone: tel: fax: [facility] [address] [place] [address] Phone: tel: Referral ID Status Reason Start Date Expiration Date Visits Re quested Visits Authorized [id number] Closed 12/18/2024 12/18/2025 1 1 Encounter Details Date Type Department Care Team (Latest Contact Info) Description 12/22/2024 12:27 PM EDT - 12/22/2024 11:59 PM EDT Hospital Encounter [facility] [address] [place] [phone] Lung nodule Discharge Disposition: Home or Self Care Social History Tobacco Use Types Packs/Day Years [...] on file documented as of this encounter Medications at Time of Discharge apixaban (ELIQUIS) 5 mg tablet Take by mouth. bisacodyL (Dulcolax, bisacodyl,) 5 mg EC tablet Take 4 tabs 1-2 hours prior to taking the bowel prep 05/03/2019 buprenorphine-na loxone (SUBOXONE) 4-1 mg per SL film Place under the tongue. citalopram (CeleXA) 20 mg tablet Take 1 Tab by mouth daily. 09/18/2019 clonazePAM (KlonoPIN) 1 mg tablet Take 1/2 tab twice daily for one week Then 1/2 tab x one week 11/07/2019 digoxin (LANOXIN) 125 mcg (0.125 mg) tablet 1 tablet (125 mcg total). 09/10/2024 dilTIAZem (TIAZAC) 300 mg 24 hr capsule Take 1 Capsule by mouth daily. flecainide (TAMBOCOR) 50 mg tablet Take 1 Tablet by mouth 2 times daily. gabapentin (NEURONTIN) 600 mg tablet Take 1.5 Tabs by mouth 4 times daily. 11/13/2019 ibuprofen (ADVIL,MOTRIN) 600 mg tablet Take 1 tablet by mouth every 8 hours as needed for Pain. 07/30/2020 magnesium oxide (MAG-OX) 400 mg magnesium tablet Take by mouth. metoprolol tartrate (LOPRESSOR) 100 mg tablet Take 1 tablet (100 mg total) by mouth 2 (two) times a day. 11/05/2024 ranitidine HCl (ZANTAC ORAL) TAKE 1 TABLET BY MOUTH TWICE DAILY 11/23/2017 traZODone (DESYREL) 50 mg tablet Take 1 Tab by mouth at bedtime. 11/13/2019 Ventolin HFA 90 mcg/actuation inhaler INHALE 2 PUFFS INTO THE LUNGS EVERY 4 HOURS NEEDED FOR COUGH OR WHEEZING 18 g 3 05/15/2024 05/15/2025 zolpidem (AMBIEN) 10 mg tablet Take 1 Tab by mouth every evening. 08/15/2019 documented as of this encounter Discharge Disposition Disposition Code Departure Means Destination Home or Self Care documented in this encounter Plan of Treatment Upcoming Encounters Date Type Department Care Team (Latest Contact Info) Description 01/11/2025 10:30 AM EST Pre-Admission Testing [facility] Pre-Admission Testing [address] [place] [phone] 01/16/2025 11:30 AM EST Hospital Encounter [facility] Main OR [address] [place] [phone] Elham Lance MD [address] [place] [phone] 01/16/2025 11:30 AM EST - 01/16/2025 4:00 PM EST Surgery [facility] [address] [place] [phone] Elham Lance MD [address] [place] [phone] Navigation bronchoscopy with dye marking da Hoa left upper lobe wedge possible segment possible lobectomy [37871 (CPT ) +5 more] 01/30/2025 1:15 PM EST Office Visit Thoracic Surgery - [place] [address] [phone] Marya Treadwell NP [address] [place] [phone] Scheduled Procedures Name Priority Associated Diagnoses Date/Ti in THORACOSCOPY ROBOT TWO Pulmonary nodule 01/16/2025 11:30 AM EST documented as of this encounter Procedures Procedure Name Priority Date/Time Associated Diagnosis Comments HC SPIROMETRY BRONCHODILATION RESPONSIVENESS PRE/POST BRONCHODILATOR ADMINISTRATION STAT 12/22/2024 1:32 PM EDT Lung nodule documented in this encounter Results * Pulmonary function testing: Carbon Monoxide Diffusing Capacity, Spirometry with Bronchodilator, Plethysmography (12/22/2024 1:32 PM EDT) Narrative Kailee Barboza MD - 12/25/2024 8:56 AM EDT Table formatting from the original result was not included. Images from the original result were not included. [facility] Lab [address] [place] [id number] Pulmonary Functions Report Date of service: 12/22/24 Patient Name: Nikko Alejandro Date of : 1970 Age: 54 y.o. Gender: male Ordering Provider: Marya Treadwell NP Diagnosis listed on Order: Lung nodule Reason for Exam: Order Questions Answers Reason for Exam: pulmonary nodule. Preop workup. Which PFTs would you like to perform? Carbon Monoxide Diffusing Capacity,Spirometry with Bronchodilator,Plethysmography Pulmonary Test Finding: Pulmonary function test interpretation. Spirometry done today reveals FEV1 of 1.67 which is 44.2% of the predicted value, FVC is 3.95 which is 81.6% of the predicted value, FEV1 to FVC ratio is 54% of the predicted value, there is no bronchodilator response. Flow-volume is consistent with obstructive pattern. Static lung volumes are within normal limits. Diffusion lung capacity is moderately reduced and remain moderately reduced after correction for alveolar volume. This study is consistent with moderate obstructive lung disease without bronchodilator response along with moderate reduction in diffusion lung capacity suggestive of diagnosis of COPD however clinical correlation is advised. Marya Treadwell NP PFT ORDERABLES Final Resul t documented in this encounter Visit Diagnoses Diagnosis Lung nodule Other diseases of lung, not elsewhere classified Pulmonary nodule- Primary Other diseases of lung, not elsewhere classified Pulmonary nodule Other diseases of lung, not elsewhere classified documented in this encounter Administered Medications Inactive Administered Medications - up to 3 most recent administrations Medication Order MAR Action Action Date Dose Rate Site albuterol 2.5 mg /3 mL (0.083 %) nebulizer solution 2.5 mg 2.5 mg, nebulization, Once, On Wed12/22/24 at 1315, For 1 dose Given 12/22/2024 1:18 PM EDT 2.5 mg documented in this encounter Orders Medications Ordered That Fransisco ht Not Have Been Administered Count Last Ordered Date First Ordered Date albuterol 2.5 mg /3 mL (0.08 3 %) nebulizer solution 2.5 mg 1 12/22/2024 documented in this encounter Care Teams It Web Development Consultant Relationship Specialty Start Date End Date Evelyn Ibrahim MD [address] [address] PCP - General Internal Medicine 04/11/21 documented as of this encounter
--- OUTSIDE RECORDS SUMMARY | 2024-12-25 10:15 | XMS_ITS | Encounter Summary ---
Author Organization [facility] Address [address] [place] [address] Care Team Providers Care Air Conditioner Installer Helper Name Role Phone Evelyn Ibrahim MD Primary Care Provider [phone] Reason for Visit * Reason Comments Lung Nodule * Consultation (Urgent) - Authorized Specialty Diagnoses / Procedures Referred By Contben t Referred To Contact Thoracic Surgery Diagnoses Lung nodule Marya Treadwell NP [address] [address] Phone: tel: fax: Elham Lance MD [address] [address] Phone: tel: fax: Referral ID Status Reason Start Date Expiration Date Visits Requested Visits Authorized [id number] Authorized Specialty Services Required 12/18/2025 1 1 Encounter Details Date Type Department Care Team (Late st Contact Info) Description 12/25/2024 10:15 AM EDT Consult Thoracic Surgery - [place] [address] [phone] Elham Lance MD [address] [place] [phone] Pulmonary nodule (Primary Dx); Neoplasm Social History Tobacco Use Types Packs/Day Years [...] Sign Reading Time Taken Comments Blood Pressure 119/65 12/25/2024 10:31 AM EDT Pulse 56 12/25/2024 10:31 AM EDT Temperature 36.7 C (98.1 F) 12/25/2024 10:31 AM EDT Respiratory Rate 18 12/25/2024 10:31 AM EDT Oxygen Saturation 95% 12/25/2024 10:31 AM EDT Inhaled Oxygen Concentration - - Weight 75 kg (165 lb 6.4 oz) 12/25/2024 10:31 AM EDT Height 182.9 cm (6') 12/25/2024 10:31 AM EDT Body Mass Index 22.43 12/25/2024 10:31 AM EDT documented in this encounter Progress Notes * Elham Lance MD - 12/25/2024 10:15 AM EDT NEW PATIENT CONSULTATION I have obtained verbal consent from Nikko Alejandro prior to the recording. I have advised Nikko Alejandro that he may refuse the recording and require the recording to be turned off at any time during this encounter. Name: Nikko Alejandro : 1970 Date of Visit: 12/25/2024 Referring Physician: Marya Treadwell NP Primary Care Physician: Evelyn Ibrahim MD Chief Complaint Patient presents with Lung Nodule HPI Mr. Alejandro is a 54 y.o. male who presents for outpatient consultation regarding the management of enlarging pulmonary nodule. History of Present Illness The patient is a 54-year-old male who presents for evaluation of a lung nodule. He is a current smoker, consuming a pack per day since the age of 14. As part of the lung cancer screening program, he underwent a low-dose CT scan of the chest on 12/02/2024, which was compared withscans from 2023 and 2021. The scan revealed an irregular, partially spiculated nodule measuring 8 mm at the apex of the left upper lobe. This nodule was present but tiny in 2023 and absent in 2021. His case was discussed at a multidisciplinary thoracic oncology conference, and the consensus plan was to conduct pulmonary function tests (PFTs) and schedule a visit to discuss further options. PFTs performed on 12/22/2024 showed an FEV1 of 45% of predicted and a DLCO/VA of 51% of predicted. He has a history of COPD, asthma, and atrial fibrillation, for which he is not currently taking Eliquis. He reports feeling generally well, with no decreased appetite, fever, chills, or soaking sweats. However, he has experienced some weight loss and shortness of breath with activity. He does not reportany wheezing, cough, or hemoptysis, and has no new neurologic complaints. He is able to ascend a flight of stairs without pausing and walked in from the parking lot without difficulty. He is making efforts to increase his physical activity. He has reduced his smoking from 2 packs to half a pack perday and has ceased alcohol consumption. He exercises twice daily, including stretching, walking, and gym workouts. He has lost over 100 pounds in a year, which he attributes to anemia. He believes his heavy drinking and smoking contributed to his anemia. He has been under significant stress since his 's passing 2 months ago. He reports good blood pressure control. He has an appointment with his logistics analytics manager on Wednesday. He has not seen his coater smoking pipe, Dr. Pastrana, in several years. He has been advised to consult with Dr. Pastrana regarding his scans. He is on disability and is paying for everything himself. He has been in atrial fibrillation for the last couple of years but is now out of it. He had a physical and EKG last month, which showed he is out of atrial fibrillation. He is going to have another EKG done. He had another test done for diabetes because his feet are burning and he feels very dry. He has had this feeling before and was a prediabetic a couple of years back. He had cataract surgery recently and will have the other eye done next week. PAST SURGICAL HISTORY: Cataract surgery SOCIAL HISTORY Marital Status: Lost 2 months ago. Exercise: Exercises twice a day, including stretching, walking, and going to the gym. Diet: Eats four times a day. Alcohol: Quit drinking. Tobacco: Smokes half a pack per day, started at age 14. FAMILY HISTORY - Sister: Breast cancer, 6 months ago - : 2 months ago for other first-degree relatives. Results Imaging - Low dose CT scan of the chest: 12/02/2024, Irregular partially spiculated nodule measuring 8 mm at the apex of the left upper lobe. This was present, but tiny in 2023 and not present in 2021. Diagnostic Testing - Pulmonary Function Tests (PFTs): 12/22/2024, FEV1 of 45% of predicted and a DLCO VA of 51% of predicted. Medical History[1] @ALL@ Current Medications[2] Social History[3] Social History Social History Narrative Not on file Family History[4] Review of Systems General - Negative for: weight loss/gain, fatigue, fever, chills, weakness, difficulty sleeping Head - Negative for: headache, trauma Eyes - Negative for: acute vision change, blurred vision, double vision, eye pain, conjunctival erythema, eyelid pain/swelling/erythema Ears - Negative for: acute change in hearing, tinnitus, ear pain, ear drainage Nose - Negative for: nasal discharge, nosebleed, itching, sinus pain Mouth/Throat - Negative for: sore throat, swollen throat, dry mouth, hoarseness, dysphagia, odynophagia, oral lesions Neck - Negative for: pain, stiffness, swelling, mass/lumps, swollen glands Cardiovascular - Negative for: chest pain/pressure, exertional chest pain, palpitations, lightheadedness, dizziness, orthopnea, extremity edema Respiratory -as above Gastrointestinal - Negative for: abdominal pain, abdominal distention, bloating, nausea, vomiting, early satiety, diarrhea, constipation, BRBPR, melena, poor appetite Genitourinary - Negative for: dysuria, hematura, urinary frequency, urinary urgency, incontinence Musculoskeletal - Negative for: muscle or joint pain, stiffness, back pain, joint swelling or erythema Neurologic - Negative for: dizziness, seizures, weakness, numbness, tingling, tremor, dysarthria, facial droop Hematologic - Negative for: easy bruising, easy bleeding, ecchymosis, petechiae Endocrine - Negative for: polyuriua, polydipsia, heat or cold intolerance Lymphatic - Negative for: swollen nodes, unexplained lumps/bumps in neck/axillae/groin Skin - Negative for: rashes, lumps, itching, dryness, color change, hair/nail changes Psychiatric - Negative for: depression, anxiety, nervousness, stress, memory change, SI/HI Physical Exam Vitals: 12/25/24 1031 BP: 119/65 BP Location: Right arm Patient Position: Sitting BP Cuff Size: Adult Pulse: 56 Resp: 18 Temp: 36.7 ??C (98.1 ??F) TempSrc: Temporal SpO2: 95% Weight: 75 kg (165 lb 6.4 oz) Height: 1.829 m (72 ) General: Patient is sitting comfortably in no acute distress, well developed, well nourished Head: Normocephalic, atraumatic, symmetric Eyes: Sclera anicteric, eyelids without edema or erythema, +EOMS intact ENT: Oral mucosa and tongue are moist without lesions or exudates Neck: Soft, supple, symmetric, trachea midline, no crepitus, no mass visualized or palpated Cardiovascular: Regular rate and rhythm, no murmur/rubs/gallops, BUE and BLE without edema, no calftenderness bilaterally Respiratory: Lungs CTAB, breathing nonlabored, speaking in full sentences, on room air. No use of accessory muscles. No obvious chest wall abnormality or deformity Gastrointestinal: Soft, non-tender, non-distended, +normoactive bowel sounds. Lymphatic: no cervical, supraclavicular, infraclavicular, or other lymphadenopathy noted Neurological: Alert and oriented x 3, neurologic exam is grossly normal Psychiatric: No agitation, appropriate affect Pathology None Micro / Labs Reviewed Radiology Reviewed and interpreted by me directly as above I personally viewed the following imaging studies, in addition to reviewing the dictated report from the reading radiologist Assessment/Plan Problem List Items Addressed This Visit Pulmonary nodule - Primary Relevant Orders Case Request Operating Room: Navigation bronchoscopy with dye marking da Hoa left upper lobe wedge possible segment possible lobectomy (Completed) NPO Instructions Prior to Day of Procedure Basic metabolic panel CBC and differential Prothrombin time with INR Activated partial thromboplastin time Type and screen ECG 12 lead - Procedural (No Charge) Other Visit Diagnoses Neoplasm Relevant Orders Prothrombin time with INR Activated partial thromboplastin time Assessment & Plan 1. Lung nodule. An irregular partially spiculated nodule measuring 8 mm at the apex of the left upper lobe has shown growth over time, making it suspicious for malignancy. PFTs done on 12/22/2024 showed an FEV1 of 45% of predicted and a DLCO VA of 51% of predicted. There is no evidence of mediastinal lymphadenopathy or pleural effusion, suggesting that if it is cancer, it is likely early stage. Three treatment options were discussed: observation with follow-up CT scans, biopsy, and surgery. Observation involves follow-up CT scans at 3 months, 6 months, and 1 year, with the benefit of avoiding unnecessary procedures if the nodule shrinks or disappears. However, the risk is that if the nodule is cancerous, it may grow or spread, progressing from early to late stage. Biopsy involves a procedure where the patient is put to sleep completely, and a camera is used to take tissue samples from the nodule and potentially lymph nodes. Benefits include determining if the nodule is cancerous and staging the cancer, while risks include collapsed lung (2% or less) and bleeding (1% or less). Surgery involves making four or five small incisions in the chest to remove the nodule and potentially perform a cancer operation if the nodule is found to be malignant. Benefits include definitive diagnosis and treatment in one step, while risks include infection, bleeding, and damage to the lung if the nodule is not cancerous. The patient expressed a preference for surgery. A tentative date for surgery will be scheduled for mid-December 2024, pending cardiology clearance. Preoperative blood work and an EKG will be ordered. The patient will also see his logistics analytics manager on Wednesday for further evaluation. A booklet explaining what to expect before, during, and after surgery was provided. Plan is for navigational bronchoscopy dye marking da Hoa right upper lobe wedge possible segmentectomy possible lobectomy. 2. Chronic obstructive pulmonary disease (COPD). COPD is confirmed with PFTs showing an FEV1 of 45% of predicted and a DLCO VA of 51% of predicted. Shortness of breath with activity is reported, but no wheezing, cough, or hemoptysis. Continuation of the current COPD management plan and increased physical activity as tolerated are advised. 3. Asthma. Asthma is noted with no recent exacerbations or symptoms such as wheezing or cough. Continuation ofthe current asthma management plan is advised. 4. Atrial fibrillation. A history of atrial fibrillation is reported, with a recent EKG indicating the patient is currentlyout of A-fib. Further evaluation and discussion about the potential need for a Watchman device willoccur during the logistics analytics manager visit on Wednesday. 5. Anemia. A history of anemia and significant unintentional weight loss over the past year is reported. Maintenance of a balanced diet and consideration of nutritional supplements like Ensure to help with weight gain and overall nutrition are advised. Total time spent on date of this encounter: 68 minutes. Reviewing patient's chart, Independently reviewing current/past imaging, Visit with the patient, Counseling and educating patient/family on diagnosis, Discussion of ongoing management, Documenting clinical information in the patient's medical record, and Discussion of surgical intervention and/or biopsy Elham Lance MD on 12/25/2024 at 2:40 PM EDT CC: Marya Treadwell, DHRUV Ibrahim MD [1] Past Medical History: Diagnosis Date Anxiety 03/16/2017 DX:Anxiety COPD (chronic obstructive pulmonary disease) (CMS/HCC V24, CMS/HCC V28) 03/09/2013 DX:COPD (chronic obstructive pulmonary disease) ([facility]) Depression 03/09/2013 DX:Depression GERD (gastroesophageal reflux disease) 03/09/2013 DX:GERD (gastroesophageal reflux disease) HTN (hypertension) 03/09/2013 DX:HTN (hypertension) Hyperlipidemia 03/19/2014 DX:Hyperlipidemia Insomnia 03/09/2013 DX:Insomnia Obstructive sleep apnea 06/16/2017 DX:Obstructive sleep apnea Pre-diabetes 03/19/2014 DX:Pre-diabetes Spinal stenosis of lumbar region 12/15/2016 DX:Spinal stenosis of lumbar region Tobacco use disorder 03/08/2014 DX:Tobacco use disorder [2] Current Outpatient Medications Medication Sig Dispense Refill digoxin (LANOXIN) 125 mcg (0.125 mg) tablet 1 tablet (125 mcg total). metoprolol tartrate (LOPRESSOR) 100 mg tablet Take 1 tablet (100 mg total) by mouth 2 (two) times aday. apixaban (ELIQUIS) 5 mg tablet Take by mouth. (Patient not taking: Reported on 12/25/2024) bisacodyL (Dulcolax, bisacodyl,) 5 mg EC tablet [...] 1 Tablet by mouth 2 times daily. maldixqrrah-gqybkpbqxkwy-ekqmnzzvch (Trelegy Ellipta) 200-62.5-25 mcg inhaler INHALE 1 PUFF INTO THE LUNGS DAILY 1 each 5 gabapentin (NEURONTIN) 600 mg tablet Take 1.5 Tabs by mouth 4 times daily. (Patient not taking: Reported on 12/25/2024) ibuprofen (ADVIL,MOTRIN) 600 mg tablet Take 1 tablet by mouth every 8 hours as needed for Pain. magnesium oxide (MAG-OX) 400 mg magnesium tablet Take by mouth. pantoprazole (PROTONIX) 40 mg EC tablet Take 1 tablet (40 mg total) by mouth 1 (one) time each day. ranitidine HCl (ZANTAC ORAL) TAKE 1 TABLET BY MOUTH TWICE DAILY (Patient not taking: Reported on 12/25/2024) traZODone (DESYREL) 50 mg tablet Take 1 Tab by mouth at bedtime. Ventolin HFA 90 mcg/actuation inhaler INHALE 2 PUFFS INTO THE LUNGS EVERY 4 HOURS NEEDED FOR COUGH OR WHEEZING 18 g 3 zolpidem (AMBIEN) 10 mg tablet Take 1 Tab by mouth every evening. (Patient not taking: Reported on 12/25/2024) No current facility-administered medications for this visit. [3] Social History Tobacco Use Smoking status: Every Day Current packs/day: 1.50 Types: Cigarettes Smokeless tobacco: Never Tobacco comments: Smoking 10 cigs daily Substance Use Topics Alcohol use: Yes Alcohol/week: 25.0 standard drinks of alcohol Drug use: No [4] Family History Problem Relation Name Age of Onset Breast cancer Sister Hyperlipidemia Neg Hx Diabetes Neg Hx Autoimmune disease Neg Hx Colon cancer Neg Hx Prostate cancer Neg Hx Coronary artery disease Neg Hx Mental illness Neg Hx Heart attack Neg Hx Heart failure Neg Hx Sleep apnea Neg Hx Hypertension Neg Hx Thyroid disease Neg Hx documented in this encounter Plan of Treatment Upcoming Encounters Date Type Department Care Team (Latest Contact Info) Description 01/11/2025 10:30 AM EST Pre-Admission Testing [facility] Pre-Admission Testing [address] [place] [phone] 01/16/2025 11:30 AM EST Hospital Encounter [facility] Main OR [address] [place] [phone] Elham Lance MD [address] [place] [phone] 01/16/2025 11:30 AM EST - 01/16/2025 4:00 PM EST Surgery [facility] Main OR [address] [place] [phone] Elham Lance MD [address] [place] [phone] Navigation bronchoscopy with dye marking da Hoa left upper lobe wedge possible segment possible lobectomy [56451 (CPT ) +5 more] 01/30/2025 1:15 PM EST Office Visit Thoracic Surgery [facility] [address] [phone] Marya Treadwell NP [address] [place] [phone] Scheduled Orders Name Type Priority Associated Diagnoses Orde r Schedule Basic metabolic panel Lab Routine Pulmonary nodule 1 Occurrences starting 12/25/2024 until 12/25/2025 CBC and differential Lab Routine Pulmonary nodule 1 Occurrences starting 12/25/2024 until 12/25/2025 Prothrombin time with INR Lab Routine Pulmonary nodule Neoplasm 1 Occurrences starting 12/25/2024 until 12/25/2025 Activated partial thromboplastin time Lab Routine Pulmonary nodule Neoplasm 1 Occurrences starting 12/25/2024 until 12/25/2025 Type and screen Lab Routine Pulmonary nodule 1 Occurrences starting 12/25/2024 until 12/25/2025 ECG 12 lead - Procedural (No Charge) ECG Routine Pulmonary nodule 1 Occurrences starting 12/25/2024 until 12/25/2025 Scheduled Procedures Name Priority Associated Diagnoses Date/Ti me THORACOSCOPY ROBOT TWO Pulmonary nodule 01/16/2025 11:30 AM EST documented as of this encounter Goals Goal Patient Goal Type Associated Problems Recent Progress Patient-Stated? Author Autogenerat ed Goal Care Plan Autogenerated Problem No Elham Lance MD documented as of this encounter Visit Diagnoses Diagnosis Pulmonary nodule- Primary Other diseases of lung, not elsewhere classified Neoplasm Neoplasm of unspecified nature, site unspecified Pulmonary nodule Other diseases of lung, not elsewhere classified documented in this encounter Historical Medications * This list may reflect changes made after this encounter. metoprolol tartrate (LOPRESSOR) 100 mg tablet Take 1 tablet (100 mg total) by mouth 2 (two) times a day. 11/05/2024 pantoprazole (PROTONIX) 40 mg EC tablet Take 1 tablet (40 mg total) by mouth 1 (one) time each day. digoxin (LANOXIN) 125 mcg (0.125 mg) tablet 1 tablet (125 mcg total). 09/10/2024 added in this encounter Orders Outpatient Referral Count Last Ordered Date Fir st Ordered Date AMB REFERRAL TO THORACIC SURGERY 1 12/26/19 25 Nursing Count Last Ordered Date First Orde red Date DIET INSTRUCTIONS TO NURSING 1 12/25/2024 Case Request Count Last Ordered Date First Orde red Date CASE REQUEST OPERATING ROOM 1 12/25/2024 documented in this encounter Additional Health Concerns Active Problems Noted Date Diagnosed Date Autogenerated Problem 12/25/2024 documented as of this encounter Care Teams Air Conditioner Installer Helper Relationship Specialty Start Date End Date Evelyn Ibrahim MD [address] [address] PCP - General Internal Medicine 04/11/21 documented as of this encounter
--- NOTE | 2024-12-27 15:14 | HO.NEPHOV_ITS ---
Vital Signs 12/27/24 15:17 Height 6 ft Weight 168 lb 8 oz BMI 22.9 BP 110/50 L Blood Pressure Location Lt brachial Position Sitting Pulse 55 Pulse Source Pulse Oximeter Pulse Oximetry (%) 95 Oxygen Delivery Method Room Air Intake Visit Reasons: R/S 09/13/2024-Conf Award Clerk Required: No Accompanied by: Self / Same As Patient Allergies morphine Allergy (Severe, Verified 12/27/24 15:17) Anaphylaxis acetaminophen (From Tylenol) Allergy (Intermediate, Verified 12/27/24 15:17) Gastrointestinal Upset HPI Comments Details: I had the privilege of seeing Nikko in follow up for hypokalemia. He is 54-year-old male with past medical history of atrial flutter, alcohol and polysubstance abuse who is continuing to have have excess alcohol intake with alcohol use disorder. He was investigated to have watchman device and was found to have low K. It led to potassium replacement and his watchman insertion has been put on hold.He has history of myocardial infarction three years ago with ongoing weakness since then; exercise intolerance noted. Continues to smoke but has reduced usage; acknowledges impact on respiratory status. He has no H/O hypokalemia as a child. He is not very hypertensive and he does not know what his magnesium levels are. He has not had any chemotherapy medications. He has a follow up with his educational assistant. He had cataract surgery and is due to have lung surgery for spiculated lesion [facility] Medical History (Updated 12/08/24 @ 13:27 by Katie Collier MD) Cigarette smoker Cough CAP (community acquired pneumonia) Asthma Laceration of left leg Prostate cancer screening Urinary hesitancy Urinary frequency Encounter for screening for malignant neoplasm of colon Acute cholecystitis Otitis media Bilateral hearing loss due to cerumen impaction Obesity Hyperglycemia Afib Alcohol use disorder Hypomagnesemia Alcohol use Substance abuse in family Back pain Constipation Bipolar 1 disorder SOB (shortness of breath) Myocardial infarction Tubular adenoma 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 Mother Chronic a-fib Sister Chronic a-fib Breast cancer Ovarian cancer Social History Household Members: Significant Other Housing: Apartment Are you a primary prompt care rn to a significant other at home: No Do you presently have visiting nurse or other home services: No Alcohol intake: current Alcohol intake frequency: does not drink Alcohol type: hard liquor Comment: REFUSING BED ALARM Patient Tobacco Use Status: Current everyday Tobacco user Tobacco use type: Cigarette Cigarette Packs Per Day: 0.5 Cigarettes Per Day: 10 e-Cigarette/Vaping Use: Never Used Second Hand Smoke Exposure: Yes Advance Directives Date on File: 07/28/22 service: No Current occupational status: disabled Cognitive needs: No Hearing needs: No Vision needs: Yes Review of Systems Const All systems reviewed & are unremarkable except as noted in HPI and below Physical Exam Vital Signs: Last Vital Signs Pulse 55 12/27/24 15:17 BP 110/50 L 12/27/24 15:17 Pulse Ox 95 12/27/24 15:17 Oxygen Delivery Method Room Air 12/27/24 15:17 BMI result Body Mass Index 22.9 Const General: comfortable and no acute distress Orientation/consciousness: patient oriented x3 HEENT Head: Yes normocephalic Mouth: Normal oral and palatal mucosa present Eyes EOM: EOMs intact bilaterally Neck Neck: Yes supple Resp Auscultation: clear to auscultation bilaterally Cardio Jugular venous distension: no JVD Rate: regular rate GI Palpation (GI): Soft to palpation Auscultation: normal bowel sounds General: Yes no CVA tenderness Back/Spine/Pelvis Back: no CVA tenderness Skin General skin exam: no rashes or lesions noted Neuro General: patient oriented x3 and moves all extremities Extrem General: Yes no pedal edema Results Reviewed Nephrology Results: Hgb, (14.0-18.0) 11.5 g/dl L 12/16/24 WBC, (4.8-10.8) 10.0 X10*3/uL 12/16/24 Plt Count, (160-400) 192 X10*3/uL 12/16/24 Sodium, (135-145) 139 mmol/L 12/16/24 Potassium, (3.3-5.1) 4.6 mmol/L 12/16/24 Chloride, (96-108) 102 mmol/L 12/16/24 Carbon Dioxide, (22-29) 29 mmol/L 12/16/24 BUN, (9-16) 15 mg/dL 12/16/24 Creatinine, (0.5-1.4) 0.67 mg/dL 12/16/24 Calcium, (8.4-10.2) 9.4 mg/dL 12/16/24 PTH Intact, (8.7-77.1) 55.3 pg/mL 10/05/24 Urine Protein, (Neg-Trace) Negative mg/dL 11/14/24 Assessment & Plan Assessment & Plan (1) Hypertension: Code(s): I10 - Essential (primary) hypertension Category: Medical Qualifiers: Hypertension type: unspecified Qualified Code(s): I10 - Essential (primary) hypertension (2) Hypokalemia: Code(s): E87.6 - Hypokalemia Category: Medical Plan Nikko has 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 He is currently on potassium replacement. He should abstain from drinking. He can continue his current dose of K replacement for now. I plan to add Spironolactone and optimize his other medications when he has gotten his watchman device. Follow up is pending evolving data. Answered all questions. Orders: Orders Blood Urea Nitrogen 8 Months E87.6 - Hypokalemia, I10 - Essential (primary) hypertension Creatinine 8 Months E87.6 - Hypokalemia, I10 - Essential (primary) hypertension Electrolytes 8 Months E87.6 - Hypokalemia, I10 - Essential (primary) hypertension Coding Level of Care Code Est Pt Level 4 (45208) Diagnoses Hypertension, unspecified type I10 Hypertension type: unspecified Hypokalemia E87.6
[2024-12-27 15:17] VITALS: BP 110/50; PULSE 55; O2SAT 95; BMI 22.9
--- OUTSIDE RECORDS SUMMARY | 2024-12-27 19:13 | XMS_ITS | Encounter Summary ---
Author Organization Address [address] [place] [address] Care Team Providers Care Cloth Grader Supervisor Name Role Phone Evelyn Ibrahim MD Primary Care Provider [phone] Encounter Details Date Type Department Care Team (Late st Contact Info) Description 08/11/2024 Lab Requisition [facility] - Main Lab [address] [facility] [place] [phone] May Stacy MD [address] [address] Essential (primary) hypertension; Unspecified atrial fibrillation (CMS/HCC V24, CMS/HCC V28); Chronic obstructive pulmonary disease, unspecified (CMS/HCC V24, CMS/HCC V28); Nutritional anemia, unspecified; Alcohol dependence with withdrawal, unspecified (CMS/HCC V24, [facility]/HCC V28) Social History Tobacco Use Types Packs/Day [...] Description 01/11/2025 10:30 AM EST Pre-Admission Testing [facility] Pre-Admission Testing [address] [place] [address] 01/16/2025 11:30 AM EST Hospital Encounter [facility] Main OR [address] [place] [phone] Elham Lance MD [address] [place] [phone] 01/16/2025 11:30 AM EST - 01/16/2025 4:00 PM EST Surgery [facility] Main OR [address] [place] [phone] Elham Lance MD [address] [place] [phone] Navigation bronchoscopy with dye marking da Hoa left upper lobe wedge possible segment possible lobectomy [29781 (CPT ) +5 more] 01/30/2025 1:15 PM EST Office Visit Thoracic Surgery [address] [phone] Marya Treadwell NP [address] [place] [phone] Scheduled Procedures Name Priority Associated Diagnoses Date/Ti me THORACOSCOPY ROBOT TWO Pulmonary nodule 01/16/2025 11:30 AM EST documented as of this encounter Visit Diagnoses Diagnosis Essential (primary) hypertension Unspecified essential hypertension Unspecified atrial fibrillation (CMS/HCC V24, CMS/HCC V28) Chronic obstructive pulmonary disease, unspecified (CMS/HCC V24, CMS/HCC V28) Nutritional anemia, unspecified Alcohol dependence with withdrawal, unspecified (CMS/HCC V24, CMS/HCC V28) Pulmonary nodule Other diseases of lung, not elsewhere classified documented in this encounter Care Teams Cloth Grader Supervisor Relationship Specialty Start Date End Date Evelyn Ibrahim MD [address] [facility] 1 [place] [address] PCP - General Internal Medicine 04/11/21 documented as of this encounter
--- OUTSIDE RECORDS SUMMARY | 2024-12-27 19:13 | XMS_ITS | Encounter Summary ---
Author Organization [facility] Address [address] [place] [address] Care Team Providers Care Parts Coordinator Name Role Phone Evelyn Ibrahim MD Primary Care Provider [phone] Reason for Visit * Reason Onset Date Comments Procedure 12/26/2024 Pre op surgery p ost op Encounter Details Date Type Department Care Team (Late st Contact Info) Description 12/26/2024 Telephone Thoracic Surgery - [address] [place] [address] Cassidy Ayala MA Social History Tobacco Use Types Packs/Day [...] as of this encounter Progress Notes * Cassidy Ayala MA - 12/26/2024 3:35 PM EDT Spoke with Nikko on today and gave them the following dates and times: - PAT is on 01/11/25 at 10:30 am arrive 15 minutes prior at Patient Registration then take the elevators to the 3rd floor and check-in at the Trolley Operator desk. - Surgery is on 01/16/25 at 11:30 am , arrival at 10:00am and check-in at same Trolley Operator desk. - Chest X ray is on 01/30/25 at 11:00 am. Please Go to [facility] first floor patient registration to check in. - Post Op is on 01/30/25 at 11;30 am with Marya Treadwell PEG DRIVER . Letter to the patient will mailed to address listed in patients chart. Patient has medicare will submit request for prior auth if needed. documented in this encounter Plan of Treatment Upcoming Encounters Date Type Department Care Team (Latest Contact Info) Description 01/11/2025 10:30 AM EST Pre-Admission Testing [facility] Pre-Admission Testing [address] [place] [phone] 01/16/2025 11:30 AM EST Hospital Encounter [address] [phone] Elham Lance MD [address] [place] [phone] 01/16/2025 11:30 AM EST - 01/16/2025 4:00 PM EST Surgery [facility] [address] [place] [phone] Elham Lance MD [address] [place] [phone] Navigation bronchoscopy with dye marking da Hoa left upper lobe wedge possible segment possible lobectomy [99148 (CPT ) +5 more] 01/30/2025 1:15 PM EST Office Visit Thoracic Surgery - [place] 299 [facility] [address] [place] [phone] Marya Treadwell NP [address] [place] [phone] Scheduled Procedures Name Priority Associated Diagnoses Date/Ti me THORACOSCOPY ROBOT TWO Pulmonary nodule 01/16/2025 11:30 AM EST documented as of this encounter Goals Goal Patient Goal Type Associated Problems Recent Progress Patient-Stated? Author Autogenerat ed Goal Care Plan Autogenerated Problem No Elham Lance MD documented as of this encounter Visit Diagnoses Not on filedocumented in this encounter Additional Health Concerns Active Problems Noted Date Diagnosed Date Autogenerated Problem 12/25/2024 documented as of this encounter Care Teams Parts Coordinator Relationship Specialty Start Date End Date Evelyn Ibrahim MD [address] [address] PCP - General Internal Medicine 04/11/21 documented as of this encounter
--- OUTSIDE RECORDS SUMMARY | 2024-12-27 19:13 | XMS_ITS | Encounter Summary ---
Author Organization [facility] Address [address] [place] [address] Care Team Providers Care Bumper Machine Operator Name Role Phone Evelyn Ibrahim MD Primary Care Provider Encounter Details Date Type Department Care Team (Late st Contact Info) Description 08/04/[address] [facility] - Main Lab [address] [facility] [place] [phone] May Stacy MD [address] [address] Essential (primary) hypertension; Unspecified atrial fibrillation (CMS/HCC V24, CMS/HCC V28); Chronic obstructive pulmonary disease, unspecified (CMS/HCC V24, CMS/HCC V28); Nutritional anemia, unspecified; Alcohol dependence with withdrawal, unspecified (CMS/HCC V24, [facility]/HCC V28) Social History Tobacco Use Types Packs/Day [...] Description 01/11/2025 10:30 AM EST Pre-Admission Testing [facility] Pre-Admission Testing [address] [place] [address] 01/16/2025 11:30 AM EST Hospital Encounter [facility] Main OR [address] [place] [address] Elham Lance MD [address] [place] [phone] 01/16/2025 11:30 AM EST - 01/16/2025 4:00 PM EST Surgery [facility] Main OR [address] [place] [phone] Elham Lance MD [address] [place] [phone] Navigation bronchoscopy with dye marking da Hoa left upper lobe wedge possible segment possible lobectomy [74677 (CPT ) +5 more] 01/30/2025 1:15 PM EST Office Visit Thoracic Surgery - [place] 299 [facility] [address] [place] [phone] Marya Treadwell NP [address] [place] [phone] Scheduled Procedures Name Priority Associated Diagnoses Date/Ti [...] LAB CHEMISTRY METHOD 08/07/2024 12:02 PM EDT [facility] Blood Venous blood specimen / Unknown Venipuncture / Unknown 08/07/2024 6:25 AM EDT 08/07/2024 10:30 AM EDT us May Stacy MD LAB BLOOD ORDERABLES Fin al Result [facility] [address] [place] [address], * Digoxin level (08/07/2024 6:25 AM EDT) Digoxin Lvl 0.6 0.5 - 2.0 ng/mL LAB CHEMISTRY METHOD 08/07/2024 12:13 PM EDT [facility] Blood Venous blood specimen / Unknown Venipuncture / Unknown 08/07/2024 6:25 AM EDT 08/07/2024 10:30 AM EDT us May Stacy MD LAB BLOOD ORDERABLES Fin al Result [facility] [address] [place] [address], * (ABNORMAL) Comprehensive metabolic panel (08/07/2024 6:25 AM EDT) Sodium 139 133 - 145 mmol/L LAB CHEMISTRY METHOD 08/07/2024 12:05 PM [facility] Potassium 3.6 3.5 - 5.5 mmol/L LAB CHEMISTRY METHOD 08/07/2024 12:05 PM [facility] Chloride 103 96 - 110 mmol/L LAB CHEMISTRY METHOD 08/07/2024 12:05 PM [facility] CO2 29 21 - 32 mmol/L LAB CHEMISTRY METHOD 08/07/2024 12:05 PM [facility] Anion Gap 7 3 - 11 LAB CHEMISTRY METHOD 08/07/2024 12:05 PM [facility] Glucose 47(L) 70 - 100 mg/dL LAB CHEMISTRY METHOD 08/07/2024 12:05 PM [facility] BUN 7 5 - 25 mg/dL LAB CHEMISTRY METHOD 08/07/2024 12:05 PM [facility] Creatinine 0.43(L) 0.70 - 1.30 mg/dL LAB CHEMISTRY METHOD 08/07/2024 12:05 PM [facility] eGFR 126 >=60 mL/min/1. 73m2 LAB CHEMISTRY METHOD 08/07/2024 12:05 PM [facility] Comment:Calculation based on the Chronic Kidney Disease Epidemiology Collaboration (CKD-EPI) equation refit without adjustment for race. BUN/Creatinine Ratio 16.3 LAB CHEMISTRY METHOD 08/07/2024 12:05 PM [facility] Calcium 8.3(L) 8.5 - 10.5 mg/dL LAB CHEMISTRY METHOD 08/07/2024 12:05 PM [facility] AST (SGOT) 54(H) 10 - 42 unit/L LAB CHEMISTRY METHOD 08/07/2024 12:05 PM [facility] ALT (SGPT) 29 10 - 60 unit/L LAB CHEMISTRY METHOD 08/07/2024 12:05 PM [facility] Alkaline Phosphatase 297(H) 42 - 121 unit/L LAB CHEMISTRY METHOD 08/07/2024 12:05 PM [facility] Total Protein 5.7(L) 6.0 - 8.0 g/dL LAB CHEMISTRY METHOD 08/07/2024 12:05 PM [facility] Albumin 2.0(L) 3.2 - 5.0 g/dL LAB CHEMISTRY METHOD 08/07/2024 12:05 PM [facility] Total Bilirubin 0.7 0.0 - 1.4 mg/dL LAB CHEMISTRY METHOD 08/07/2024 12:05 PM [facility] Blood Venous blood specimen / Unknown Venipuncture / Unknown 08/07/2024 6:25 AM EDT 08/07/2024 10:30 AM EDT us May Stacy MD LAB BLOOD ORDERABLES Fin al Result [facility] [address] [place] [address], * (ABNORMAL) Complete blood count (08/07/2024 6:25 AM EDT) WBC 8.8 4.8 - 10.8 K/mcL LAB HEMETOLOGY METHOD 08/07/2024 2:21 PM EDT [facility] RBC 2.60(L) 4.50 - 5.50 M/mcL LAB HEMETOLOGY METHOD 08/07/2024 2:21 PM EDT [facility] Hemoglobin 9.5(L) 13.5 - 17.5 g/dL LAB HEMETOLOGY METHOD 08/07/2024 2:21 PM [facility] Hematocrit 30.7(L) 42.0 - 54.0 % LAB HEMETOLOGY METHOD 08/07/2024 2:21 PM [facility] MCV 118.5(H) 79.0 - 98.0 FL LAB HEMETOLOGY METHOD 08/07/2024 2:21 PM [facility] MCH 36.7(H) 27.0 - 32.0 pcg LAB HEMETOLOGY METHOD 08/07/2024 2:21 PM [facility] MCHC 30.9(L) 32.0 - 37.0 g/dL LAB HEMETOLOGY METHOD 08/07/2024 2:21 PM [facility] RDW 14.5 11.0 - 15.0 % LAB HEMETOLOGY METHOD 08/07/2024 2:21 PM [facility] Platelets 288 130 - 400 K/mcL LAB HEMETOLOGY METHOD 08/07/2024 2:21 PM [facility] MPV 10.4 7.0 - 11.0 FL LAB HEMETOLOGY METHOD 08/07/2024 2:21 PM [facility] NRBC 0.0 <1.0 % LAB HEMETOLOGY METHOD 08/07/2024 2:21 PM [facility] NRBC Absolute 0.00 <0.10 K/mcL LAB HEMETOLOGY METHOD 08/07/2024 2:21 PM [facility] Blood Venous blood specimen / Unknown Venipuncture / Unknown 08/07/2024 6:25 AM EDT 08/07/2024 10:31 AM EDT May Stacy MD LAB BLOOD ORDERABLES Fin al Result [facility] [address] [place] [address], documented in this encounter Visit Diagnoses Diagnosis Essential (primary) hypertension Unspecified essential hypertension Unspecified atrial fibrillation ([facility] V24, [facility] V28) Chronic obstructive pulmonary disease, unspecified ([facility] V24, [facility] V28) Nutritional anemia, unspecified Alcohol dependence with withdrawal, unspecified ([facility] V24, [facility] V28) Pulmonary nodule Other diseases of lung, not elsewhere classified documented in this encounter Care Teams Bumper Machine Operator Relationship Specialty Start Date End Date Evelyn Ibrahim MD [address] [place] [address] PCP - General Internal Medicine 04/11/21 documented as of this encounter
--- OUTSIDE RECORDS SUMMARY | 2024-12-27 19:13 | XMS_ITS | Encounter Summary ---
Author Organization [facility] Address [address] [place] [address] Care Team Providers Care Feed Mixer Helper Name Role Phone Evelyn Ibrahim MD Primary Care Provider [phone] Encounter Details Date Type Department Care Team (Late st Contact Info) Description 08/02/2024 Lab Requisition [facility] - Main Lab 299 [facility] [place] [phone] May Stacy MD [address] [address] Essential (primary) hypertension Social History Tobacco Use [...] Description 01/11/2025 10:30 AM EST Pre-Admission Testing [facility] Pre-Admission Testing [address] [place] [phone] 01/16/2025 11:30 AM EST Hospital Encounter [facility] Main OR [address] [place] [phone] Elham Lance MD [address] [place] [phone] 01/16/2025 11:30 AM EST - 01/16/2025 4:00 PM EST Surgery [facility] Main OR [address] [place] [address] Elham Lance MD [address] [place] [phone] Navigation bronchoscopy with dye marking da Hoa left upper lobe wedge possible segment possible lobectomy [40311 (CPT ) +5 more] 01/30/2025 1:15 PM EST Office Visit Thoracic Surgery - [place] 299 [facility] [address] [place] [phone] Marya Treadwell NP [address] [place] [phone] Scheduled Procedures Name Priority Associated Diagnoses Date/Ti [...] mmol/L LAB CHEMISTRY METHOD 08/02/2024 9:04 AM [facility] Potassium 4.0 3.5 - 5.5 mmol/L LAB CHEMISTRY METHOD 08/02/2024 9:04 AM [facility] Chloride 103 96 - 110 mmol/L LAB CHEMISTRY METHOD 08/02/2024 9:04 AM [facility] CO2 29 21 - 32 mmol/L LAB CHEMISTRY METHOD 08/02/2024 9:04 AM [facility] Anion Gap 6 3 - 11 LAB CHEMISTRY METHOD 08/02/2024 9:04 AM [facility] Glucose 73 70 - 100 mg/dL LAB CHEMISTRY METHOD 08/02/2024 9:04 AM [facility] BUN 5 5 - 25 mg/dL LAB CHEMISTRY METHOD 08/02/2024 9:04 AM [facility] Creatinine 0.38(L) 0.70 - 1.30 mg/dL LAB CHEMISTRY METHOD 08/02/2024 9:04 AM [facility] eGFR 131 >=60 mL/min/1. 73m2 LAB CHEMISTRY METHOD 08/02/2024 9:04 AM [facility] Comment:Calculation based on the Chronic Kidney Disease Epidemiology Collaboration (CKD-EPI) equation refit without adjustment for race. BUN/Creatinine Ratio 13.2 LAB CHEMISTRY METHOD 08/02/2024 9:04 AM [facility] Calcium 7.9(L) 8.5 - 10.5 mg/dL LAB CHEMISTRY METHOD 08/02/2024 9:04 AM [facility] AST (SGOT) 65(H) 10 - 42 unit/L LAB CHEMISTRY METHOD 08/02/2024 9:04 AM [facility] ALT (SGPT) 35 10 - 60 unit/L LAB CHEMISTRY METHOD 08/02/2024 9:04 AM [facility] Alkaline Phosphatase 412(H) 42 - 121 unit/L LAB CHEMISTRY METHOD 08/02/2024 9:04 AM [facility] Total Protein 5.3(L) 6.0 - 8.0 g/dL LAB CHEMISTRY METHOD 08/02/2024 9:04 AM [facility] Albumin 1.8(L) 3.2 - 5.0 g/dL LAB CHEMISTRY METHOD 08/02/2024 9:04 AM [facility] Total Bilirubin 1.0 0.0 - 1.4 mg/dL LAB CHEMISTRY METHOD 08/02/2024 9:04 AM EDT [facility] Blood Venous blood specimen / Unknown Venipuncture / Unknown 08/02/2024 4:51 AM EDT 08/02/2024 8:03 AM EDT us May Stacy MD LAB BLOOD ORDERABLES Fin al Result [facility] [address] [place] [address], * (ABNORMAL) Complete blood count (08/02/2024 4:51 AM EDT) WBC 8.3 4.8 - 10.8 K/mcL LAB HEMETOLOGY METHOD 08/02/2024 9:01 AM [facility] RBC 2.40(L) 4.50 - 5.50 M/mcL LAB HEMETOLOGY METHOD 08/02/2024 9:01 AM [facility] Hemoglobin 9.1(L) 13.5 - 17.5 g/dL LAB HEMETOLOGY METHOD 08/02/2024 9:01 AM [facility] Hematocrit 28.0(L) 42.0 - 54.0 % LAB HEMETOLOGY METHOD 08/02/2024 9:01 AM [facility] MCV 114.8(H) 79.0 - 98.0 FL LAB HEMETOLOGY METHOD 08/02/2024 9:01 AM [facility] MCH 37.3(H) 27.0 - 32.0 pcg LAB HEMETOLOGY METHOD 08/02/2024 9:01 AM [facility] MCHC 32.5 32.0 - 37.0 g/dL LAB HEMETOLOGY METHOD 08/02/2024 9:01 AM [facility] RDW 14.6 11.0 - 15.0 % LAB HEMETOLOGY METHOD 08/02/2024 9:01 AM EDT [facility] Platelets 199 130 - 400 K/mcL LAB HEMETOLOGY METHOD 08/02/2024 9:01 AM EDT [facility] MPV 11.2(H) 7.0 - 11.0 FL LAB HEMETOLOGY METHOD 08/02/2024 9:01 AM EDT [facility] NRBC 0.0 <1.0 % LAB HEMETOLOGY METHOD 08/02/2024 9:01 AM EDT [facility] NRBC Absolute 0.00 <0.10 K/mcL LAB HEMETOLOGY METHOD 08/02/2024 9:01 AM EDT [facility] Blood Venous blood specimen / Unknown Venipuncture / Unknown 08/02/2024 4:51 AM EDT 08/02/2024 8:03 AM EDT us May Stacy MD LAB BLOOD ORDERABLES Fin al Result [facility] [address] [place] [address], documented in this encounter Visit Diagnoses Diagnosis Essential (primary) hypertension Unspecified essential hypertension Pulmonary nodule Other diseases of lung, not elsewhere classified documented in this encounter Care Teams Feed Mixer Helper Relationship Specialty Start Date End Date Evelyn Ibrahim MD [address] [address] PCP - General Internal Medicine 04/11/21 documented as of this encounter
--- OUTSIDE RECORDS SUMMARY | 2024-12-27 19:13 | XMS_ITS | Clinical Summary ---
Author Organization [facility] Address [address] [place] [address] Phone Care Team Providers Care Sales Office Assistant Name Role Phone Evelyn Ibrahim MD Primary Care Provider [phone] Allergies Active Allergy Reactions Criticality Noted Date [...] LUNGS DAILY 1 each 5 06/19/2024 Active digoxin (LANOXIN) 125 mcg (0.125 mg) tablet 1 tablet (125 mcg total). 09/10/2024 Active pantoprazole (PROTONIX) 40 mg EC tablet Take 1 tablet (40 mg total) by mouth 1 (one) time each day. Active metoprolol tartrate (LOPRESSOR) 100 mg tablet Take 1 tablet (100 mg total) by mouth 2 (two) times a day. 11/05/2024 Active Active Problems Problem Noted Date Diagnosed Date Pulmonary nodule 12/25/2024 High cholesterol 12/31/2017 Chronic back pain 12/09/2017 Obstructive sleep apnea 06/16/2017 Anxiety 03/16/2017 Spinal stenosis of lumbar region 12/15/2016 Hyperlipidemia 03/19/2014 Pre-diabetes 03/19/2014 Tobacco use disorder 03/08/2014 COPD (chronic obstructive pu lmonary disease) ([facility] V24, [facility] V28) 03/09/2013 Depression 03/09/2013 GERD (gastroesophageal reflux disease) 4 HTN (hypertension) 03/09/2013 Insomnia 03/09/2013 Encounters Date Type Department Care Team Description 12/26/2024 Telephone Thoracic Surgery - [address] [address] Cassidy Ayala MA 12/25/2024 10:15 AM EDT Consult Thoracic Surgery - [address] [phone] Elham Lance MD Pulmonary nodule (Primary Dx); Neoplasm 12/22/2024 12:27 PM EDT - 12/22/2024 11:59 PM EDT Hospital Encounter [facility] Pulmonary [address] [place] [phone] Lung nodule Discharge Disposition: Home or Self Care 12/12/2024 Telephone Lung Screening Program - [place] [address] [facility] [address] [place] [address] [place] 12/02/2024 9:25 AM EDT - 12/02/2024 11:59 PM EDT Hospital Encounter [facility] CT Scan [address] [place] [address] Encounter for screening for malignant neoplasm of respiratory organs; Nicotine dependence, cigarettes, uncomplicated Discharge Disposition: Home or Self Care 11/08/2024 Telephone Lung Screening Program - [place] [address] [facility] [address] [place] [address] Amalia Bernal MA from Last 3 Months [...] DX:Anxiety COPD (chronic obstructive pu lmonary disease) ([facility] V24, [facility] V28) 03/09/2013 DX:COPD (chronic o bstructive pulmonary disease) ([facility]) Depression 03/09/2013 DX:Depression GERD (gastroesophageal reflux [...] Mass Index 22.43 12/25/2024 10:31 AM EDT Plan of Treatment Upcoming Encounters Date Type Department Care Team (Latest Contact Info) Description 01/11/2025 10:30 AM EST Pre-Admission Testing [facility] Pre-Admission Testing [address] [place] [phone] 01/16/2025 11:30 AM EST Hospital Encounter [facility] Main OR [address] [place] [phone] Elham Lance MD [address] [place] [address] [place] [phone] 01/16/2025 11:30 AM EST - 01/16/2025 4:00 PM EST Surgery [facility] Main OR [address] [place] [phone] Elham Lance MD [address] [place] [phone] Navigation bronchoscopy with dye marking da Hoa left upper lobe wedge possible segment possible lobectomy [18490 (CPT ) +5 more] 01/30/2025 1:15 PM EST Office Visit Thoracic Surgery - [place] [address] [facility] [address] [place] [phone] Marya Treadwell NP [address] [place] [phone] Scheduled Procedures Name Priority Associated Diagnoses Date/Ti me THORACOSCOPY ROBOT TWO Pulmonary nodule 01/16/2025 11:30 AM EST Health Maintenance Due Date Last Done Comments [...] Additional history exists Influenza Vaccine (#1) 2024 3, 01/14/2022, 12/17/2020, Additional history exists Hypertension/CHF/CAD Annual [...] on patient's age to complete this topic Goals Goal Patient Goal Type Associated Problems Recent Progress Patient-Stated? Author Autogenerat ed Goal Care Plan Autogenerated Problem No Elham Lance MD Procedures Procedure Name Priority Date/Time Associated Diagnosis Comments HC SPIROMETRY BRONCHODILATION RESPONSIVENESS PRE/POST BRONCHODILATOR ADMINISTRATION STAT 12/22/2024 1:32 PM EDT Lung nodule CT LUNG SCREENING Routine 12/02/2024 9:3 5 [...] Recently Relevant to Health Maintenance Results * Pulmonary function testing: Carbon Monoxide Diffusing Capacity, Spirometry with Bronchodilator, Plethysmography (12/22/2024 1:32 PM EDT) Narrative Kailee Barboza MD - 12/25/2024 8:56 AM EDT Table formatting from the original result was not included. Images from the original result were not included. [facility] [address] [place] [id number] Pulmonary Functions Report Date of service: 12/22/24 Patient Name: Nikko Watkins Date of : 1970 Age: 54 y.o. [...] of COPD however clinical correlation is advised. us Marya Treadwell NP PFT ORDERABLES Final Resul t * CT Lung Screening (12/02/2024 9:35 AM [...] Signed Date: 12/12/2024 11:03 ET Workstation ID: [id number] Transcribed By: Self Edit Transcribed Date: 12/12/2024 10:15 ET Narrative 12/12/2024 11:03 AM EDT EXAMINATION: CT CHEST WITHOUT CONTRAST LUNG CANCER SCREENING, LOW DOSE CLINICAL INFORMATION: Lung cancer screening. Current smoker. COMPARISON: Portions of previous 04/19/23 TECHNIQUE: Multidetector CT. Examination of the chest. Examination of the chest without IV contrast. Reformatting in the coronal and sagittal planes. Device: [employer] VCT DLP: 124 mGy-cm CTDI: 3.22 Dose optimization was performed including the use of low-dose iterative reconstruction technique with automatic exposure control based on patient size. Type of contrast: None Volume of IV contrast: None Volume of contrast discarded: 0 mL FINDINGS: Digital toxicology supervisor demonstrates large lung volumes. LUNG: There are [...] MUSCULOSKELETAL: No suspicious focal bony lesion demonstrated. Elham Lance MD [facility] [place]ED[place] Final Result * (ABNORMAL) Comprehensive metabolic panel (08/07/2024 6:25 AM EDT) Pathologist [facility] Sodium 139 133 - 145 mmol/L LAB CHEMISTRY METHOD 08/07/2024 12:05 PM [facility] Potassium 3.6 3.5 - 5.5 mmol/L LAB CHEMISTRY METHOD 08/07/2024 12:05 PM [facility] Chloride 103 96 - 110 mmol/L LAB CHEMISTRY METHOD 08/07/2024 12:05 PM [facility] CO2 29 21 - 32 mmol/L LAB CHEMISTRY METHOD 08/07/2024 12:05 PM [facility] Anion Gap 7 3 - 11 LAB CHEMISTRY METHOD 08/07/2024 12:05 PM [facility] Glucose 47(L) 70 - 100 mg/dL LAB CHEMISTRY METHOD 08/07/2024 12:05 PM [facility] BUN 7 5 - 25 mg/dL LAB CHEMISTRY METHOD 08/07/2024 12:05 PM [facility] Creatinine 0.43(L) 0.70 - 1.30 mg/dL LAB CHEMISTRY METHOD 08/07/2024 12:05 PM [facility] eGFR 126 >=60 mL/min/1. 73m2 LAB CHEMISTRY METHOD 08/07/2024 12:05 PM [facility] Comment:Calculation based on the Chronic Kidney Disease Epidemiology Collaboration (CKD-EPI) equation refit without adjustment for race. BUN/Creatinine Ratio 16.3 LAB CHEMISTRY METHOD 08/07/2024 12:05 PM [facility] Calcium 8.3(L) 8.5 - 10.5 mg/dL LAB CHEMISTRY METHOD 08/07/2024 12:05 PM [facility] AST (SGOT) 54(H) 10 - 42 unit/L LAB CHEMISTRY METHOD 08/07/2024 12:05 PM [facility] ALT (SGPT) 29 10 - 60 unit/L LAB CHEMISTRY METHOD 08/07/2024 12:05 PM [facility] Alkaline Phosphatase 297(H) 42 - 121 unit/L LAB CHEMISTRY METHOD 08/07/2024 12:05 PM [facility] Total Protein 5.7(L) 6.0 - 8.0 g/dL LAB CHEMISTRY METHOD 08/07/2024 12:05 PM [facility] Albumin 2.0(L) 3.2 - 5.0 g/dL LAB CHEMISTRY METHOD 08/07/2024 12:05 PM [facility] Total Bilirubin 0.7 0.0 - 1.4 mg/dL LAB CHEMISTRY METHOD 08/07/2024 12:05 PM [facility] Blood Venous blood specimen / Unknown Venipuncture / Unknown 08/07/2024 6:25 AM EDT 08/07/2024 10:30 AM EDT us May Stacy MD LAB BLOOD ORDERABLES Fin al Result [facility] [address] [place] [address], * Lipid panel (08/03/2019) LDL/HDL Ratio 4 0 - 4 Triglycerides 124 0 - 150 mg/dL Cholesterol 145 0 - 200 mg/dL HDL 40 >=40 mg/dL LDL Cholesterol 81 0 - 100 mg/dL Blood Venous blood specimen / Unknown us Historical Provider LAB BLOOD ORDERABLES Marita l Result from Last 3 Months or Most Recently Relevant to Health Maintenance Additional Health Concerns Active Problems Noted Date Diagnosed Date Autogenerated Problem 12/25/2024 Insurance [place]ICARE [place] - [place] [employer] Care Teams Sales Office Assistant Relationship Specialty Start Date End Date Evelyn Ibrahim MD [address] [address] PCP - General Internal Medicine 04/11/21
== END 2024-12-27 15:28 | disposition home or self-care (01) ==
LOC: HO.HKA 14:50
PROVIDERS: PCP Internal Medicine; Visit Provider Internal Medicine Nephrology
DX: I10 Essential (primary) hypertension (principal); E87.6 Hypokalemia
CPT/HCPCS: 99214

== ENCOUNTER → 2024-12-27 14:49 | Outpatient (BNVA) | payer MEDICARE, MEDICAID, SELFPAY | PROVIDERS: PCP Internal Medicine; Visit Provider Internal Medicine Nephrology | DX: I10 Essential (primary) hypertension (principal); E87.6 Hypokalemia; Z79.899 Other long term (current) drug therapy | CPT/HCPCS: 99212 ==

== ENCOUNTER 2025-01-09 13:02 | Outpatient (AMB) | payer MEDICARE, MEDICAID, SELFPAY ==
--- NOTE | 2025-01-09 13:04 | A.OFFVIS_ITS ---
Intake Visit Reasons: follow up/Testo Intake Note: Patient is present for TESTO F/U Urology Medication:POTASSIUM, CIALIS Antibiotic Allergy:NONE Blood Thinner:NONE Household Appliances Service Technician Required: No Allergies morphine Allergy (Severe, Verified 01/09/25 13:36) Anaphylaxis acetaminophen (From Tylenol) Allergy (Intermediate, Verified 01/09/25 13:36) Gastrointestinal Upset Medication List - Last Reconciled 01/09/25 by Tish Kwan EYE CARE PROFESSIONAL- albuterol sulfate 90 mcg/actuation (Ventolin HFA) 90 mcg inhalation Q4-6H PRN atorvastatin 20 mg PO BEDTIME bisacodyl 10 mg (2 x 5 mg) PO BEDTIME 30 days buprenorphine-naloxone 8-2 mg 1 tab sublingual TID clonazepam (Klonopin) 1 mg PO BID PRN clotrimazole 1% 1 appl topical BID 4 weeks cyanocobalamin (vitamin B-12) 1,000 mcg PO DAILY digoxin 125 mcg PO DAILY diltiazem HCl ER (Tiadylt ER) 300 mg PO DAILY ecjskqiqmvv-rdtgnyxxn-eourrupf 200-62.5-25 mcg (Trelegy Ellipta) 1 ea inhalation DAILY folic acid 1 mg PO DAILY magnesium oxide 400 mg PO BIDPC 30 days metoprolol tartrate 100 mg PO BID 90 days pantoprazole 40 mg PO DAILY@0630 [portable oxygen via [place] As directed] potassium chloride ER 20 mEq PO BID prucalopride (Motegrity) 2 mg PO DAILY HPI Comments Details: Nikko is a pleasant 54 [address] male patient Dr. Collier. He has a past medical history of nicotine dependence, community-acquired pneumonia, asthma, cholecystitis, obesity, AFib, alcohol use disorder, polysubstance abuse, back pain, constipation, bipolar disorder, myocardial infarction, Tariq's esophagus, GERD, and hyperlipidemia. He presents to the office today for follow- up. Of note, patient was seen last approximately 2 years ago at which time plan was to follow-up in 6 months. However, in discussion with the patient today he reports he did not follow-up as at the time he did not feel it was necessary. However, he reports he has recently lost his 3 months ago in his realized he would like to be in better health. He reports having followed up with his PCP in discussing ongoing issues of nocturia he has been experiencing at which time recommendations were made for urology referral for further assessment evaluation. He also reports having recently had a CT of the chest for surveillance monitoring of lung cancer as he has a longstanding history of nicotine dependence as well as recreational drug use. He discusses he is undergoing thoracic surgery at [facility] within the next couple of weeks. We did discussed potential causes of nocturia. He does report a previous history of sleep apnea however states this was many years ago in does not wear a CPAP machine. He does report he is O2 dependent and will wear a nasal cannula at night. We did discussed correlation of sleep apnea and nocturia. Patient with a previous history of erectile dysfunction however he does not feel this is an issue at this time. He denies urinary urgency, urinary frequency, incontinence, hematuria, dysuria, foul smelling urine, changes to urinary stream, flank pain, fever, and or chills. Unable to obtain urine for urinalysis as patient unable to void. Discussed at length importance of limiting alcohol and avoiding recreational drugs for overall health and well-being. He otherwise offers no other issues or concerns at this time. Labs are as follows: Testosterone: 10/19 421, 06/20 417, 05/21 714, 06/21 594, 10/21 359, 12/23 237 Free testosterone: 10/19 50.1,06/20 28.4, 05/21 45.7, 06/21 47.5, 10/21 19.4, 12/23 8.1 PSA: 06/20 0.2, 12/23 0.3 Erectile dysfunction Prior spinal fusion Inability to fully obtain and maintain erection Trial daily tadalafil Hypogonadism Labs - 10/19 421, 06/20 FSK/LH NAD T 450, 06/21 T 600 Free 50, 10/21 T 360 Concurrent medications include naloxone [facility] Medical History (Updated 01/09/25 @ 13:34 by GABBY Bowen) Urinary frequency Cigarette smoker Cough CAP (community acquired pneumonia) Asthma Laceration of left leg Prostate cancer screening Urinary hesitancy Encounter for screening for malignant neoplasm of colon Acute cholecystitis Otitis media Bilateral hearing loss due to cerumen impaction Obesity Hyperglycemia Afib Alcohol use disorder Hypomagnesemia Alcohol use Substance abuse in family Back pain Constipation Bipolar 1 disorder SOB (shortness of breath) Myocardial infarction Tubular adenoma 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 Mother Chronic a-fib Sister Chronic a-fib Breast cancer Ovarian cancer Social History Household Members: Significant Other Housing: Apartment Are you a primary rn acute care to a significant other at home: No Do you presently have visiting nurse or other home services: No Alcohol intake: current Alcohol intake frequency: does not drink Alcohol type: hard liquor Comment: REFUSING BED ALARM Patient Tobacco Use Status: Current everyday Tobacco user Tobacco use type: Cigarette Cigarette Packs Per Day: 0.5 Cigarettes Per Day: 10 e-Cigarette/Vaping Use: Never Used Second Hand Smoke Exposure: Yes Advance Directives Date on File: 07/28/22 service: No Current occupational status: disabled Cognitive needs: No Hearing needs: No Vision needs: Yes Review of Systems Const All systems reviewed & are unremarkable except as noted in HPI and below Physical Exam Const General: cooperative, comfortable, no acute distress, well developed, alert and awake Orientation/consciousness: patient oriented x3 Limitations: no limitations HEENT Head: Yes normal to inspection, Yes normocephalic and Yes atraumatic Ears: hearing grossly normal bilaterally Eyes General: appearance normal, both eyes and all related structures Neck Neck: Yes normal visual inspection and Yes trachea midline Chest Chest palpation & inspection: normal inspection of the chest Resp Effort & Inspection: normal respiratory effort and able to speak in complete sentences Cardio Rate: regular rate GI Inspection: Yes normal to inspection General: Yes no CVA tenderness Back/Spine/Pelvis Back: no CVA tenderness Skin General skin exam: no rashes or lesions noted Neuro General: patient oriented x3 Extrem General: Yes normal to inspection Psych Appearance: grossly normal and well kempt Mental Status: mental status grossly normal Speech and movement: Normal speech and movement present and Clear speech present Affect: normal affect Attitude: cooperative Thought process: Normal thought process present Thought content: Normal thought content present Insight: Fair insight present (Psych) Judgement: Fair judgement present (Psych) Assessment & Plan Assessment & Plan (1) Urinary frequency: Code(s): R35.0 - Frequency of micturition Category: Medical (2) Erectile dysfunction: Code(s): N52.9 - Male erectile dysfunction, unspecified Category: Medical (3) Nocturia: Code(s): R35.1 - Nocturia Category: Medical (4) Hypogonadism in male: Code(s): E29.1 - Testicular hypofunction Category: Medical Plan Unable to obtain urine for urinalysis today as patient unable to void. We did discussed potential causes of nocturia as well as ED. We did discuss further treatment options of these urological conditions and risks and benefits of these treatment options. We did discussed at length the importance of limiting nicotine dependence, recreational drug use, and alcohol dependence in relation to urological health as well as overall health and well-being. Most recent testosterone and PSA results reviewed with the patient today. Will obtain ultrasound for further assessment evaluation. We discussed bladder triggers and irritants. We also discussed the importance of limiting fluids 2-3 hours prior to bed to decrease episodes of nocturia. Continue to follow-up with thoracic surgery, pulmonology, Nephrology, Cardiology, Gastroenterology, and PCP as planned. All questions were answered. Follow-up in 3 months with imaging and labs; or sooner with any issues, concerns, and or questions. Orders: Orders Testosterone, Free/Total Today E11.69 - Type 2 diabetes mellitus with other specified complication, N52.1 - Erectile dysfunction due to diseases classified elsewhere US retroperitoneal comp Today R35.1 - Nocturia Lutenizing Hormone Today E29.1 - Testicular hypofunction Prostate Specific Antigen Today N52.9 - Male erectile dysfunction, unspecified, R35.0 - Frequency of micturition, R35.1 - Nocturia UA and rflx microscopic Today N52.9 - Male erectile dysfunction, unspecified, R35.0 - Frequency of micturition Urine Cytology Today R35.1 - Nocturia Sex Hormone Binding Globulin Today E29.1 - Testicular hypofunction Prolactin Today E29.1 - Testicular hypofunction Follicle Stimulating Hormone Today E29.1 - Testicular hypofunction Estrad Free (Tot Ultra + Free) Today E29.1 - Testicular hypofunction Patient Instructions: The patient had an opportunity to ask questions regarding the treatment plan. All questions were answered. Physical exam, labs, and imaging were discussed and reviewed in detail. As well as risks, benefits, and discussion of treatment choices. No major barriers to understanding were identified. The patient expressed understanding and agreement with the above treatment plan. The patient was made aware they should contact our office by phone for worsening of their current condition, the appearance of new symptoms, or with any questions or concerns. Compliance is encouraged with any medications and follow up testing that is ordered. It is a privilege to be allowed the opportunity to participate in? your urological care.? Again, if you have any questions or concerns If you have any questions or concerns please do not hesitate to contact me. The office is [phone]. This note is constructed using voice recognition software. While every effort has been made to ensure accuracy gasoline engine assembler errors may have been included. Yours sincerely, JOEL Bowen Coding Level of Care Code Est Pt Level 4 (22794) Complex EM visit Add On G2211 Diagnoses Urinary frequency R35.0 Erectile dysfunction N52.9 Nocturia R35.1 Hypogonadism in male E29.1 Time Spent (min) 40
--- OUTSIDE RECORDS SUMMARY | 2025-01-09 14:47 | XMS_ITS | Encounter Summary ---
Author Organization [facility] Address [address] [place] [address] Care Team Providers Care Vending Machine Refiller Name Role Phone Evelyn Ibrahim MD Primary Care Provider [phone] Reason for Visit * Reason Onset Date Comments Procedure 12/26/2024 Pre op surgery p ost op Encounter Details Date Type Department Care Team (Late st Contact Info) Description 12/26/2024 Telephone Thoracic Surgery - [address] [place] [address] Cassidy Ayala MA Social History [...] as of this encounter Progress Notes * Maryam Calabrese RN - 01/09/2025 10:51 AM EST LVM asking that patient patient return my call. Patient returned my call, we reviewed his medications, he will hold his Vitamins the am of his procedure He knows to be NPO midnight the night before his procedure. He was reminded that he has a PAT appt on 01/11 @ 10:30. He will wear comfortable clothing and bring his ID and Insurance cards with him. He has a 10:00 arrival time to the 3rd floor on 01/16. * Cassidy Ayala MA - 12/26/2024 3:35 PM EDT Spoke with Nikko on today and gave them the following dates and times: - PAT is on 01/11/25 at 10:30 am arrive 15 minutes prior at Patient Registration then take the elevators to the 3rd floor and check-in at the Endocrinologist desk. - Surgery is on 01/16/25 at 11:30 am , arrival at 10:00am and check-in at same Endocrinologist desk. - Chest X ray is on 01/30/25 at 11:00 am. [facility] first floor patient registration to check in. - Post Op is on 01/30/25 at 11;30 am with Marya Treadwell DATA REPORT ANALYST . Letter to the patient will mailed to address listed in patients chart. Patient has medicare will submit request for prior auth if needed. documented in this encounter Plan of Treatment Upcoming Encounters Date Type Department Care Team (Latest Contact Info) Description 01/11/2025 10:30 AM EST Pre-Admission Testing [facility] Pre-Admission Testing [address] [place] [phone] 01/16/2025 11:30 AM EST Hospital Encounter [facility] OR [address] [place] [phone] Elham Lance MD [address] [place] [phone] 01/16/2025 11:30 AM EST - 01/16/2025 4:00 PM EST Surgery [facility] OR [address] [place] [phone] Elham Lance MD [address] [place] [phone] Navigational bronchoscopy w/dye marking, Елена left upper lobe wedge ? segment ? lobectomy [93437 (CPT ) +5 more] 01/30/2025 1:15 PM EST Office Visit Thoracic Surgery - [address] [place] [address] Marya Treadwell NP [address] [place] [phone] Scheduled Procedures Name Priority Associated Diagnoses Date/Ti [...] documented as of this encounter Care Teams Vending Machine Refiller Relationship Specialty Start Date End Date Evelyn Ibrahim MD [address] [facility] [place] [address] [place] [address] PCP - General Internal Medicine 04/11/21 documented as of this encounter
--- OUTSIDE RECORDS SUMMARY | 2025-01-09 14:47 | XMS_ITS | Encounter Summary ---
Author Organization [facility] Address [address] [place] [address] Care Team Providers Care General Manager Food Name Role Phone Evelyn Ibrahim MD Primary Care Provider [phone] Encounter Details Date Type Department Care Team (Late st Contact Info) Description 08/11/2024 Lab Requisition [facility] - Main Lab [address] [place] [address] May Stacy MD [address] [address] Essential (primary) hypertension; Unspecified atrial fibrillation (CMS/HCC [...] Description 01/11/2025 10:30 AM EST Pre-Admission Testing [facility] Pre-Admission Testing [address] [place] [phone] 01/16/2025 11:30 AM EST Hospital Encounter [facility] Main OR [address] [place] [phone] Elham Lance MD [address] [place] [phone] 01/16/2025 11:30 AM EST - 01/16/2025 4:00 PM EST Surgery [facility] Main OR [address] [place] [phone] Elham Lance MD [address] [place] [phone] Navigational bronchoscopy w/dye marking, daVinci left upper lobe wedge ? segment ? lobectomy [17726 (CPT ) +5 more] 01/30/2025 1:15 PM EST Office Visit Thoracic Surgery [address] [phone] Marya Treadwell, DHRUV [address] [place] [phone] Scheduled Procedures Name Priority Associated Diagnoses Date/Ti [...] classified documented in this encounter Care Teams General Manager Food Relationship Specialty Start Date End Date Evelyn Ibrahim MD 200 [facility] 1 [place] [address] PCP - General Internal Medicine 04/11/21 documented as of this encounter
--- OUTSIDE RECORDS SUMMARY | 2025-01-09 14:47 | XMS_ITS | Clinical Summary ---
Author Organization 175 [facility] Address [address] [place] [address] Phone Care Team Providers Care Propeller Tester Name Role Phone Evelyn Ibrahim MD Primary Care Provider [phone] Allergies Active Allergy Reactions Criticality Noted Date Comments Acetaminophen Rash 03/09/2013 Morphine Nausea And Vomiting 03/09/2013 Medications buprenorphine- naloxone (SUBOXONE) 4-1 mg per [address] film Place under the tongue. Active dilTIAZem (TIAZAC) 300 mg 24 hr capsule Take 1 Capsule by mouth daily. Active flecainide (TAMBOCOR) 50 mg tablet Take 1 Tablet by mouth 2 times daily. Active magnesium oxide (MAG-OX) 400 mg magnesium tablet Take by mouth. Active clonazePAM (KlonoPIN) 1 mg tablet Take 1/2 tab twice daily for one week Then 1/2 tab x one week 0 Active citalopram (CeleXA) 20 mg tablet Take 1 Tab by mouth daily. 0 Active bisacodyL (Dulcolax, bisacodyl,) 5 mg EC tablet Take 4 tabs 1-2 hours prior to taking the bowel prep 0 Active Ventolin HFA 90 mcg/actuation inhaler INHALE 2 PUFFS INTO THE LUNGS EVERY 4 HOURS NEEDED FOR COUGH OR WHEEZING 18 g 3 5 026 Active fluticasone-um eclidinium-jero anterol (Trelegy Ellipta) 200-62.5-25 mcg inhaler INHALE 1 PUFF INTO THE LUNGS DAILY 1 each 5 5 Active digoxin (LANOXIN) 125 mcg (0.125 mg) tablet 1 tablet (125 mcg total). 5 Active pantoprazole (PROTONIX) 40 mg EC tablet Take 1 tablet (40 mg total) by mouth 1 (one) time each day. Active metoprolol tartrate (LOPRESSOR) 100 mg tablet Take 1 tablet (100 mg total) by mouth 2 (two) times a day. 5 Active folic acid (FOLVITE) 1 mg tablet Take by mouth 1 (one) time each day. Active apixaban (ELIQUIS) 5 mg tablet Take by mouth. 025 Discontinued ibuprofen (ADVIL,MOTRIN) 600 mg tablet Take 1 tablet by mouth every 8 hours as needed for Pain. 1 025 Discontinued gabapentin (NEURONTIN) 600 mg tablet Take 1.5 Tabs by mouth 4 times daily. 0 025 Discontinued traZODone (DESYREL) 50 mg tablet Take 1 Tab by mouth at bedtime. 0 025 Discontinued zolpidem (AMBIEN) 10 mg tablet Take 1 Tab by mouth every evening. 0 025 Discontinued ranitidine HCl (ZANTAC ORAL) TAKE 1 TABLET BY MOUTH TWICE DAILY 8 025 Discontinued Active Problems Problem Noted Date Diagnosed Date Pulmonary nodule 12/25/2024 High cholesterol 12/31/2017 Chronic back pain 12/09/2017 Obstructive sleep apnea 06/16/2017 Anxiety 03/16/2017 Spinal stenosis of lumbar region 12/15/2016 Hyperlipidemia 03/19/2014 Pre-diabetes 03/19/2014 Tobacco use disorder 03/08/2014 COPD (chronic obstructive pu lmonary disease) ([facility] V24, [facility] V28) 03/09/2013 Depression 03/09/2013 GERD (gastroesophageal reflux disease) 4 HTN (hypertension) 03/09/2013 Insomnia 03/09/2013 Encounters Date Type Department Care Team Description 12/26/2024 Telephone Thoracic Surgery [address] [address] Cassidy Ayala [place] 12/25/2024 10:15 AM EDT Consult Thoracic Surgery - [place] 299 [facility] [address] [place] [phone] Elham Lance MD Pulmonary nodule (Primary Dx); Neoplasm 12/22/2024 12:27 PM EDT - 12/22/2024 11:59 PM EDT Hospital Encounter [facility] Pulmonary [address] [place] [phone] Lung nodule Discharge Disposition: Home or Self Care 12/12/2024 Telephone Lung Screening Program - [place] [address] [address] Shara Farah [place] 12/02/2024 9:25 AM EDT - 12/02/2024 11:59 PM EDT Hospital Encounter [facility] CT Scan [address] [place] [phone] Encounter for screening for malignant neoplasm of respiratory organs; Nicotine dependence, cigarettes, uncomplicated Discharge Disposition: Home or Self Care 11/08/2024 Telephone Lung Screening Program - [place] [address] [phone] Amalia Bernal MA from Last 3 Months [...] Comments BACK SURGERY PROCEDURE: HISTORICAL BACK SURGERY CATARACT EXTRACTION Bilateral Medical History Medical History Date Comments Hyperlipidemia 03/19/2014 DX:Hyperlipidemi a Anxiety 03/16/2017 DX:Anxiety COPD (chronic obstructive pu lmonary disease) ([facility] V24, [facility] V28) 03/09/2013 DX:COPD (chronic o bstructive pulmonary disease) ([facility]) Depression 03/09/2013 DX:Depression GERD (gastroesophageal reflux disease) 03/09/2013 DX:GERD (gastroesophageal reflux disease) HTN (hypertension) 03/09/2013 DX:HTN (hyper tension) Insomnia 03/09/2013 DX:Insomnia Pre-diabetes 03/19/2014 DX:Pre-diabetes Spinal stenosis of lumbar region 12/15/2016 DX:Spinal stenosis of lumbar region Tobacco use disorder 03/08/2014 DX:Tobacco use disorder Obstructive sleep apnea 06/16/2017 DX:Obstr uctive sleep apnea Anemia Family History Medical History Relation Name Comments [...] Description 01/11/2025 10:30 AM EST Pre-Admission Testing [facility] Pre-Admission Testing [address] [place] [phone] 01/16/2025 11:30 AM EST Hospital Encounter [facility] OR [address] [place] [phone] Elham Lance MD [address] [place] [phone] 01/16/2025 11:30 AM EST - 01/16/2025 4:[address] [facility] OR [address] [place] [phone] Elham Lance MD [address] [place] [phone] Navigational bronchoscopy w/dye marking, daVinci left upper lobe wedge ? segment ? lobectomy [96882 (CPT ) +5 more] 01/30/2025 1:15 PM EST Office Visit Thoracic Surgery - [place] 299 [facility] [address] [place] [phone] Marya Treadwell NP [address] [place] [phone] Scheduled Procedures Name Priority Associated Diagnoses Date/Ti [...] CMS/HCC V28) Chronic obstructive pulmonary disease, unspecified ([facility] V24, [facility] V28) Nutritional anemia, unspecified Alcohol dependence with withdrawal, unspecified ([facility] V24, [facility] V28) LIPID PANEL Routine 08/03/2019 from Last 3 Months or Most Recently Relevant to Health Maintenance Results * Pulmonary function testing: Carbon Monoxide Diffusing Capacity, Spirometry with Bronchodilator, Plethysmography (12/22/2024 1:32 PM EDT) Kailee Luis MD - 12/25/2024 8:56 AM EDT Table formatting from the original result was not included. Images from the original result were not included. [facility] Pulmonary Lab [address] [place] [address] Pulmonary Functions Report Date of service: 12/22/24 [...] Signed Date: 12/12/2024 11:03 ET Workstation ID: [id number] Transcribed By: Self Edit Transcribed Date: 12/12/2024 10:15 ET Narrative 12/12/2024 11:03 AM EDT EXAMINATION: CT CHEST WITHOUT CONTRAST LUNG CANCER SCREENING, LOW DOSE CLINICAL INFORMATION: Lung cancer screening. Current smoker. COMPARISON: Portions of previous 04/19/23 TECHNIQUE: Multidetector CT. Examination of the chest. Examination of the chest without IV contrast. Reformatting in the coronal and sagittal planes. Device: ClickDelivery VCT DLP: 124 mGy-cm CTDI: 3.22 Dose optimization was performed including the use of low-dose iterative reconstruction technique with automatic exposure control based on patient size. Type of contrast: None Volume of IV contrast: None Volume of contrast discarded: 0 mL FINDINGS: Digital paint line supervisor demonstrates large lung volumes. LUNG: There [...] al Result [facility] [address] [place] [address], * Lipid panel (08/03/2019) LDL/HDL Ratio 4 [...] MEDICAID [place] [employer] [place] Care Teams Propeller Tester Relationship Specialty Start Date End Date Evelyn Ibrahim MD [address] [place] [id number] PCP - General Internal Medicine 04/11/21
--- OUTSIDE RECORDS SUMMARY | 2025-01-09 14:47 | XMS_ITS | Encounter Summary ---
Author Organization [facility] Address [address] [place] [address] Care Team Providers Care Data Base Administrator Name Role Phone Evelyn Ibrahim MD Primary Care Provider [phone] Encounter Details Date Type Department Care Team (Late st Contact Info) Description 08/04/2024 Lab Requisition [facility] - Main Lab [address] [place] [address] May Stacy MD [address] [address] Essential (primary) hypertension; Unspecified atrial fibrillation (CMS/HCC [...] Description 01/11/2025 10:30 AM EST Pre-Admission Testing [facility] Pre-Admission Testing [address] [place] [phone] 01/16/2025 11:30 AM EST Hospital Encounter [facility] Main OR [address] [place] [phone] Elham Lance MD [address] [place] [phone] 01/16/2025 11:30 AM EST - 01/16/2025 4:00 PM EST Surgery [facility] Main OR [address] [place] [phone] Elham Lance MD [address] [place] [phone] Navigational bronchoscopy w/dye marking, Елена left upper lobe wedge ? segment ? lobectomy [49765 (CPT ) +5 more] 01/30/2025 1:15 PM EST Office Visit Thoracic Surgery - [place] 299 [facility] [address] [place] [phone] Marya Treadwell, DHRUV [address] [place] [phone] Scheduled Procedures Name Priority Associated Diagnoses Date/Ti [...] EDT Essential (primary) hypertension Unspecified atrial fibrillation ([facility]/HCC V24, CMS/HCC V28) Chronic obstructive pulmonary disease, unspecified (CMS/HCC V24, CMS/HCC V28) Nutritional anemia, unspecified Alcohol dependence with withdrawal, unspecified (CMS/HCC V24, CMS/HCC V28) COMPREHENSIVE METABOLIC PANEL Routine 08/07/2024 6:25 AM EDT Essential (primary) hypertension Unspecified atrial fibrillation (CMS/HCC V24, CMS/HCC V28) Chronic obstructive pulmonary disease, unspecified (CMS/HCC V24, CMS/HCC V28) Nutritional anemia, unspecified Alcohol dependence with withdrawal, unspecified (CMS/HCC V24, CMS/[facility] V28) documented in this encounter Results * (ABNORMAL) Magnesium (08/07/2024 6:25 AM EDT) Magnesium 1.6(L) 1.9 - 2.6 mg/dL LAB CHEMISTRY METHOD 08/07/2024 12:02 PM EDT [facility] Blood Venous blood specimen / Unknown Venipuncture / Unknown 08/07/2024 6:25 AM EDT 08/07/2024 10:30 AM EDT us May Stacy MD LAB BLOOD ORDERABLES Fin al Result [facility] [address] [place] [address], * Digoxin level (08/07/2024 6:25 AM EDT) Digoxin Lvl 0.6 0.5 - 2.0 ng/mL LAB CHEMISTRY METHOD 08/07/2024 12:13 PM EDT [facility] Blood Venous blood specimen / Unknown Venipuncture / Unknown 08/07/2024 6:25 AM EDT 08/07/2024 10:30 AM EDT us May Stacy MD LAB BLOOD ORDERABLES Fin al Result [facility] [address] [place] [address], * (ABNORMAL) Comprehensive metabolic panel (08/07/2024 6:25 AM EDT) Sodium 139 133 - 145 mmol/L LAB CHEMISTRY METHOD 08/07/2024 12:05 PM [facility] Potassium 3.6 3.5 - 5.5 mmol/L LAB CHEMISTRY METHOD 08/07/2024 12:05 PM [facility] Chloride 103 96 - 110 mmol/L LAB CHEMISTRY METHOD 08/07/2024 12:05 PM [facility] CO2 29 21 - 32 mmol/L LAB CHEMISTRY METHOD 08/07/2024 12:05 PM [facility] Anion Gap 7 3 - 11 LAB CHEMISTRY METHOD 08/07/2024 12:05 PM [facility] Glucose 47(L) 70 - 100 mg/dL LAB CHEMISTRY METHOD 08/07/2024 12:05 PM [facility] BUN 7 5 - 25 mg/dL LAB CHEMISTRY METHOD 08/07/2024 12:05 PM [facility] Creatinine 0.43(L) 0.70 - 1.30 mg/dL LAB CHEMISTRY METHOD 08/07/2024 12:05 PM [facility] eGFR 126 >=60 mL/min/1. 73m2 LAB CHEMISTRY METHOD 08/07/2024 12:05 PM [facility] Comment:Calculation based on the Chronic Kidney Disease Epidemiology Collaboration (CKD-EPI) equation refit without adjustment for race. BUN/Creatinine Ratio 16.3 LAB CHEMISTRY METHOD 08/07/2024 12:05 PM [facility] Calcium 8.3(L) 8.5 - 10.5 mg/dL LAB CHEMISTRY METHOD 08/07/2024 12:05 PM [facility] AST (SGOT) 54(H) 10 - 42 unit/L LAB CHEMISTRY METHOD 08/07/2024 12:05 PM [facility] ALT (SGPT) 29 10 - 60 unit/L LAB CHEMISTRY METHOD 08/07/2024 12:05 PM [facility] Alkaline Phosphatase 297(H) 42 - 121 unit/L LAB CHEMISTRY METHOD 08/07/2024 12:05 PM [facility] Total Protein 5.7(L) 6.0 - 8.0 g/dL LAB CHEMISTRY METHOD 08/07/2024 12:05 PM [facility] Albumin 2.0(L) 3.2 - 5.0 g/dL LAB CHEMISTRY METHOD 08/07/2024 12:05 PM [facility] Total Bilirubin 0.7 0.0 - 1.4 mg/dL LAB CHEMISTRY METHOD 08/07/2024 12:05 PM [facility] Blood Venous blood specimen / Unknown Venipuncture / Unknown 08/07/2024 6:25 AM EDT 08/07/2024 10:30 AM EDT us May Stacy MD LAB BLOOD ORDERABLES Fin al Result [facility] [address] [place] [address], * (ABNORMAL) Complete blood count (08/07/2024 6:25 AM EDT) WBC 8.8 4.8 - 10.8 K/mcL LAB HEMETOLOGY METHOD 08/07/2024 2:21 PM EDT [facility] RBC 2.60(L) 4.50 - 5.50 M/mcL LAB HEMETOLOGY METHOD 08/07/2024 2:21 PM [facility] Hemoglobin 9.5(L) 13.5 - 17.5 g/dL LAB HEMETOLOGY METHOD 08/07/2024 2:21 PM [facility] Hematocrit 30.7(L) 42.0 - 54.0 % LAB HEMETOLOGY METHOD 08/07/2024 2:21 PM [facility] MCV 118.5(H) 79.0 - 98.0 FL LAB HEMETOLOGY METHOD 08/07/2024 2:21 PM [facility] MCH 36.7(H) 27.0 - 32.0 pcg LAB HEMETOLOGY METHOD 08/07/2024 2:21 PM [facility] MCHC 30.9(L) 32.0 - 37.0 g/dL LAB HEMETOLOGY METHOD 08/07/2024 2:21 PM [facility] RDW 14.5 11.0 - 15.0 % LAB HEMETOLOGY METHOD 08/07/2024 2:21 PM [facility] Platelets 288 130 - 400 K/mcL LAB HEMETOLOGY METHOD 08/07/2024 2:21 PM [facility] MPV 10.4 7.0 - 11.0 FL LAB HEMETOLOGY METHOD 08/07/2024 2:21 PM [facility] NRBC 0.0 <1.0 % LAB HEMETOLOGY METHOD 08/07/2024 2:21 PM [facility] NRBC Absolute 0.00 <0.10 K/mcL LAB HEMETOLOGY METHOD 08/07/2024 2:21 PM [facility] Blood Venous blood specimen / Unknown Venipuncture / Unknown 08/07/2024 6:25 AM EDT 08/07/2024 10:31 AM EDT us May Stacy MD LAB BLOOD ORDERABLES Fin al Result [facility] [address] [place] [address], documented in this encounter Visit Diagnoses Diagnosis Essential (primary) hypertension Unspecified essential hypertension Unspecified atrial fibrillation ([facility] V24, [facility] V28) Chronic obstructive pulmonary disease, unspecified ([facility] V24, [facility] V28) Nutritional anemia, unspecified Alcohol dependence with withdrawal, unspecified ([facility] V24, [facility] V28) Pulmonary nodule Other diseases of lung, not elsewhere classified documented in this encounter Care Teams Data Base Administrator Relationship Specialty Start Date End Date Evelyn Ibrahim MD [address] [place] [address] PCP - General Internal Medicine 04/11/21 documented as of this encounter
--- OUTSIDE RECORDS SUMMARY | 2025-01-09 14:47 | XMS_ITS | Encounter Summary ---
Author Organization [facility] Address [address] [place] [address] Care Team Providers Care Civil Engineering Director Name Role Phone Evelyn Ibrahim MD Primary Care Provider [phone] Encounter Details Date Type Department Care Team (Late st Contact Info) Description 08/02/2024 Lab Requisition [facility] - Main Lab 299 [facility] [place] [phone] May Stacy MD [address] [address] Essential (primary) hypertension Social History Tobacco Use [...] Description 01/11/2025 10:30 AM EST Pre-Admission Testing [facility] Pre-Admission Testing [address] [place] [phone] 01/16/2025 11:30 AM EST Hospital Encounter [facility] Main OR [address] [place] [phone] Elham Lance MD [address] [place] [phone] 01/16/2025 11:30 AM EST - 01/16/2025 4:00 PM EST Surgery [facility] Main OR [address] [place] [phone] Elham Lance MD [address] [place] [phone] Navigational bronchoscopy w/dye marking, daVinci left upper lobe wedge ? segment ? lobectomy [77135 (CPT ) +5 more] 01/30/2025 1:15 PM EST Office Visit Thoracic Surgery - [place] 299 [facility] [address] [place] [phone] Marya Treadwell NP [address] [place] [phone] Scheduled Procedures Name Priority Associated Diagnoses Date/Ti [...] mmol/L LAB CHEMISTRY METHOD 08/02/2024 9:04 AM [facility] Potassium 4.0 3.5 - 5.5 mmol/L LAB CHEMISTRY METHOD 08/02/2024 9:04 AM [facility] Chloride 103 96 - 110 mmol/L LAB CHEMISTRY METHOD 08/02/2024 9:04 AM [facility] CO2 29 21 - 32 mmol/L LAB CHEMISTRY METHOD 08/02/2024 9:04 AM [facility] Anion Gap 6 3 - 11 LAB CHEMISTRY METHOD 08/02/2024 9:04 AM [facility] Glucose 73 70 - 100 mg/dL LAB CHEMISTRY METHOD 08/02/2024 9:04 AM [facility] BUN 5 5 - 25 mg/dL LAB CHEMISTRY METHOD 08/02/2024 9:04 AM [facility] Creatinine 0.38(L) 0.70 - 1.30 mg/dL LAB CHEMISTRY METHOD 08/02/2024 9:04 AM [facility] eGFR 131 >=60 mL/min/1. 73m2 LAB CHEMISTRY METHOD 08/02/2024 9:04 AM [facility] Comment:Calculation based on the Chronic Kidney Disease Epidemiology Collaboration (CKD-EPI) equation refit without adjustment for race. BUN/Creatinine Ratio 13.2 LAB CHEMISTRY METHOD 08/02/2024 9:04 AM [facility] Calcium 7.9(L) 8.5 - 10.5 mg/dL LAB CHEMISTRY METHOD 08/02/2024 9:04 AM [facility] AST (SGOT) 65(H) 10 - 42 unit/L LAB CHEMISTRY METHOD 08/02/2024 9:04 AM [facility] ALT (SGPT) 35 10 - 60 unit/L LAB CHEMISTRY METHOD 08/02/2024 9:04 AM [facility] Alkaline Phosphatase 412(H) 42 - 121 unit/L LAB CHEMISTRY METHOD 08/02/2024 9:04 AM [facility] Total Protein 5.3(L) 6.0 - 8.0 g/dL LAB CHEMISTRY METHOD 08/02/2024 9:04 AM [facility] Albumin 1.8(L) 3.2 - 5.0 g/dL LAB CHEMISTRY METHOD 08/02/2024 9:04 AM [facility] Total Bilirubin 1.0 0.0 - 1.4 mg/dL LAB CHEMISTRY METHOD 08/02/2024 9:[address] [facility] Blood Venous blood specimen / Unknown Venipuncture / Unknown 08/02/2024 4:51 AM EDT 08/02/2024 8:03 AM EDT us May Stacy MD LAB BLOOD ORDERABLES Fin al Result [facility] [address] [place] [address], * (ABNORMAL) Complete blood count (08/02/2024 4:51 AM EDT) WBC 8.3 4.8 - 10.8 K/mcL LAB HEMETOLOGY METHOD 08/02/2024 9:01 AM [facility] RBC 2.40(L) 4.50 - 5.50 M/mcL LAB HEMETOLOGY METHOD 08/02/2024 9:01 AM [facility] Hemoglobin 9.1(L) 13.5 - 17.5 g/dL LAB HEMETOLOGY METHOD 08/02/2024 9:01 AM [facility] Hematocrit 28.0(L) 42.0 - 54.0 % LAB HEMETOLOGY METHOD 08/02/2024 9:01 AM [facility] MCV 114.8(H) 79.0 - 98.0 FL LAB HEMETOLOGY METHOD 08/02/2024 9:01 AM [facility] MCH 37.3(H) 27.0 - 32.0 pcg LAB HEMETOLOGY METHOD 08/02/2024 9:01 AM [facility] MCHC 32.5 32.0 - 37.0 g/dL LAB HEMETOLOGY METHOD 08/02/2024 9:01 AM [facility] RDW 14.6 11.0 - 15.0 % LAB HEMETOLOGY METHOD 08/02/2024 9:[address] [facility] Platelets 199 130 - 400 K/mcL LAB HEMETOLOGY METHOD 08/02/2024 9:[address] [facility] MPV 11.2(H) 7.0 - 11.0 FL LAB HEMETOLOGY METHOD 08/02/2024 9:[address] [facility] NRBC 0.0 <1.0 % LAB HEMETOLOGY METHOD 08/02/2024 9:[address] [facility] NRBC Absolute 0.00 <0.10 K/mcL [facility] 08/02/2024 9:[address] [facility] Blood Venous blood specimen / Unknown Venipuncture / Unknown 08/02/2024 4:51 AM EDT 08/02/2024 8:03 AM EDT us May Stacy MD LAB BLOOD ORDERABLES Fin al Result [facility] [address] [place] [address], documented in this encounter Visit Diagnoses Diagnosis Essential (primary) hypertension Unspecified essential hypertension Pulmonary nodule Other diseases of lung, not elsewhere classified documented in this encounter Care Teams Civil Engineering Director Relationship Specialty Start Date End Date Evelyn Ibrahim MD [address] [address] PCP - General Internal Medicine 04/11/21 documented as of this encounter
== END 2025-01-09 13:36 | disposition home or self-care (01) ==
LOC: HO.HUSH 13:03
PROVIDERS: PCP Internal Medicine; Visit Provider Nurse Practitioner Family
DX: R35.0 Frequency of micturition (principal); N52.9 Male erectile dysfunction, unspecified; R35.1 Nocturia; E29.1 Testicular hypofunction
CPT/HCPCS: 99214; G2211

== ENCOUNTER → 2025-01-09 13:02 | Outpatient (BNVA) | payer MEDICARE, MEDICAID, SELFPAY | PROVIDERS: PCP Internal Medicine; Visit Provider Nurse Practitioner Family | DX: R35.0 Frequency of micturition (principal); N52.9 Male erectile dysfunction, unspecified; E29.1 Testicular hypofunction; R35.1 Nocturia | CPT/HCPCS: 99212 ==

== ENCOUNTER 2025-02-05 08:01 | Outpatient (REF) | payer MEDICARE, MEDICAID, SELFPAY ==
[2025-02-05 10:31] LABS: Appearance Urine Clear; Glucose Urine UA Negative (Negative); PH 7.5 (5.0-9.0); Specific Gravity - Urine 1.015 (1.005-1.025)
[2025-02-05 11:06] LABS: Anion Gap 13 (12-20); Blood Urea Nitrogen 17 mg/dL (9-16); Calcium 9.7 mg/dL (8.4-10.2); Carbon Dioxide 31 mmol/L (22-29); Chloride 102 mmol/L (96-108); Estimated Glomerular Filt Rate > 60; Potassium 3.8 mmol/L (3.3-5.1); Sodium 142 mmol/L (135-145)
[2025-02-05 11:43] LABS: Prostate Specific Antigen 0.29 ng/mL (<0.05-4.0)
[2025-02-06 06:09] LABS: Follicle Stimulating Hormone 15.4 mIU/mL (1.4-12.8)
== END 2025-02-05 08:02 | disposition home or self-care (01) ==
LOC: HO.HMGCLDS 08:01
PROVIDERS: Absent Provider Nurse Practitioner Family; PCP Internal Medicine; Visit Provider Internal Medicine
DX: E11.69 Type 2 diabetes mellitus with other specified complication (principal); N52.1 Erectile dysfunction due to diseases classified elsewhere; E29.1 Testicular hypofunction; N52.9 Male erectile dysfunction, unspecified; R35.0 Frequency of micturition; R35.1 Nocturia; R30.0 Dysuria; Z12.5 Encounter for screening for malignant neoplasm of prostate
CPT/HCPCS: 36415; 80048; 81003; 82670; 82681; 83001; 83002; 83036; 84146; 84153; 84270; 84402; 84403; 88112